=== PATIENT | male | born 1955 | race Caucasian/White ===

== ENCOUNTER 2016-09-30 16:10 | Inpatient (IN) ==
[2016-09-30] MEDS ORDERED: Nitroglycerin 0.4 MG TAB.SUBL SL ONE (16:21)
[2016-09-30] MEDS ORDERED: Aspirin 81 MG TAB.CHEW PO ONE (16:21)
[2016-09-30] MEDS ORDERED: *HR* Ticagrelor 90 MG TABLET PO ONE (16:23)
[2016-09-30] MEDS ORDERED: *HR* Heparin 5,000 UNIT/ML VIAL IVP ONE (16:26)
--- NOTE | 2016-09-30 16:26 | Emergency Department Note ---
Disposition Clinical Impression: ST elevation myocardial infarction (STEMI) Qualifiers: Involved coronary artery: unspecified coronary artery Qualified Code(s): I21.3 - ST elevation (STEMI) myocardial infarction of unspecified site Chest pain Qualifiers: Chest pain type: unspecified Qualified Code(s): R07.9 - Chest pain, unspecified Disposition: Admitted As Inpatient Condition: Fair Time of Disposition: 18:00 Chest Pain HPI - General Chief Complaint: ED Chest Pain Stated Complaint: "I think I am having attack of the heart" Time Seen by Provider: 09/30/16 16:20 Source: patient Mode of arrival: ambulatory Limitations: no limitations Vital Signs Reviewed: Yes Nursing Notes Reviewed: Yes - History of Present Illness HPI Narrative: 61-year-old male pack per day smoker, CAD s/p 4 stents, hypertension, diabetes, hyperlipidemia presents with chest pain. Describes a sharp chest pain in the left chest wall started at 1300 associated shortness of breath and nausea. He reports noncompliance with his medication. He took 81 mg aspirin today. He is unsure of his last heart catheterization. Upon medical record review appears he had a stent placed to the LAD 2013. His relationship executive is Dr. Valerio. Upon EKG review performed at [address] elevation and V1-V5, he currently has chest pain. Denies any bloody stool, black tarry stool or hemoptysis. 324 mg aspirin ordered with nitro trial. [id number] mg and heparin bolus 4000 U. Cath team has been notified. STEMI alert initiated on arrival Severity scale (1-10): 9 - Related Data Previous Rx's Medication Instructions Recorded Hydrocodone/Acetaminophen [[place] 1 each PO 3-4XD PRN #8 tablet 06/03/15 5-325 Tablet] cephALEXin [Keflex] 500 mg PO BID #20 capsule 06/03/15 Allergies Allergy/AdvReac Type Severity Reaction Status Date / Time codeine Allergy Itching Verified 06/03/15 20:16 All systems ED: reviewed and negative except as stated. Review of Systems: As Per HPI Constitutional: Denies: fever, chills Cardiovascular: Reports: chest pain, dyspnea on exertion Respiratory: Reports: dyspnea. Denies: cough, wheezes Gastrointestinal: Reports: nausea. Denies: abdominal pain, vomiting Genitourinary: Denies: urgency, dysuria Musculoskeletal: Denies: back pain, neck pain Integumentary: Denies: rash, abrasion, lesions Neurological: Denies: headache Chest Pain PMH - Past Medical History Medical history: Reports: COPD, diabetes, hyperlipidemia, hypertension, myocardial infarction Psychiatric history: Reports: depression - Social History Smoking Status: Current every day smoker Alcohol use: Reports: none Drug use: Reports: none, marijuana Physical Exam - General Limitations: no limitations General appearance: alert, in distress - Head Head exam: atraumatic, normocephalic, normal inspection - Eye Eye exam: Present: normal appearance, PERRL, EOMI - ENT ENT exam: normal exam, normal oropharynx, mucous membranes moist - Chest Chest inspection: Present: normal inspection, symmetric chest wall rise. Absent : tenderness, rash - Respiratory Respiratory exam: Present: normal lung sounds bilaterally. Absent: respiratory distress - Cardiovascular Cardiovascular exam: Present: regular rate, normal rhythm, normal heart sounds - Abdominal Exam Abdominal exam: Present: soft, Non-Tender, normal bowel sounds. Absent: tenderness, distention, guarding, rebound, rigidity - Extremities Exam Extremities exam: Present: normal inspection, full ROM, normal capillary refill , pedal edema (+1 symmetrical). Absent: tenderness - Neurological Exam Neurological exam: Present: alert, oriented X3 - Skin Skin exam: Present: warm, dry, intact, normal color. Absent: rash, cyanosis, diaphoresis Course - Reevaluation(s) Reevaluation #1: Patient is currently experiencing 9 of 10 pain. Vitals are stable. Code Cart is in the room with pacer pads on. Full dose aspirin and bolus of Brilinta and heparin. Denies any G.I. bleed symptoms. Catheterization team notified. Patient will be admitted and transferred for further evaluation care to the cath for left heart catheterization. - Consultations Consultation #1: My attending Dr. Johnson spoke with the head housekeeper Dr. Fallon. Cath team initiated. Time: 16:31 Vital Signs Temperature 98.4 F 09/30/16 16:13 Pulse Rate 102 09/30/16 16:13 Respiratory Rate 20 09/30/16 16:13 Blood Pressure 115/74 09/30/16 16:13 O2 Sat by Pulse Oximetry 93 09/30/16 16:13 Temperature 98.4 F 09/30/16 16:13 Pulse Rate 99 09/30/16 16:35 Respiratory Rate 20 09/30/16 16:46 Blood Pressure 100/69 09/30/16 16:46 O2 Sat by Pulse Oximetry 95 09/30/16 16:39 Oxygen Delivery Oxygen Delivery Nasal Cannula Chest Pain - Medical Records Medical records reviewed: Yes I reviewed the patient's medical records. - Lab Data Lab results reviewed: Yes I reviewed the patient's lab results. Result diagrams: 09/30/16 16:30 09/30/16 16:30 Lab Results 09/30/16 09/30/16 09/30/16 Range/Units 16:30 16:30 16:30 WBC 10.5 (4.3-11.1) K/mcL RBC 5.61 H (4.19-5.50) M/mcL Hgb 16.0 (12.9-16.9) g/dL Hct 50.0 (37.5-50.1) % MCV 89.1 (83.0-100.0) fL MCH 28.5 (28.0-33.3) pg MCHC 32.0 (31.6-35.5) g/dL RDW 13.1 (11.5-14.5) % Plt Count 186 (140-400) K/mcL MPV 11.9 (9.4-12.4) fL Immature Gran % 0.3 (0-4) % Seg Neutrophils % 83.6 % Lymphocytes % 11.2 % Monocytes % 4.4 % Eosinophils % 0.2 % Basophils % 0.3 % Neutrophils # 8.8 (1.6-8.9) K/mcL Lymphocytes # 1.2 (0.6-4.6) K/mcL Monocytes # 0.5 (0.0-1.3) K/mcL Eosinophils # 0.0 (0.0-0.6) K/mcL Basophils # 0.0 (0.0-0.2) K/mcL PT 11.8 (9.4-12.1) Seconds INR 1.1 APTT 30.3 (26.0-36.0) Seconds Sodium 137 (136-145) mEq/L Potassium 2.6 L (3.5-4.5) mEq/L Chloride 111 H (98-109) mEq/L Carbon Dioxide 22 (19-29) mEq/L BUN 10 (8-26) mg/dL Creatinine 0.76 (0.72-1.25) mg/dL Est GFR ( Amer) > 60 (> 60) Est GFR (Non-Af Amer) > 60 (> 60) BUN/Creatinine Ratio 13 (6-26) Glucose 474 H (70-99) mg/dL Calculated Osmolality 304 H (280-300) Calcium 6.3 L (8.6-10.8) mg/dL Troponin I (0-0.03) ng/mL 09/30/16 Range/Units 16:30 WBC (4.3-11.1) K/mcL RBC (4.19-5.50) M/mcL Hgb (12.9-16.9) g/dL Hct (37.5-50.1) % MCV (83.0-100.0) fL MCH (28.0-33.3) pg MCHC (31.6-35.5) g/dL RDW (11.5-14.5) % Plt Count (140-400) K/mcL MPV (9.4-12.4) fL Immature Gran % (0-4) % Seg Neutrophils % % Lymphocytes % % Monocytes % % Eosinophils % % Basophils % % Neutrophils # (1.6-8.9) K/mcL Lymphocytes # (0.6-4.6) K/mcL Monocytes # (0.0-1.3) K/mcL Eosinophils # (0.0-0.6) K/mcL Basophils # (0.0-0.2) K/mcL PT (9.4-12.1) Seconds INR APTT (26.0-36.0) Seconds Sodium (136-145) mEq/L Potassium (3.5-4.5) mEq/L Chloride (98-109) mEq/L Carbon Dioxide (19-29) mEq/L BUN (8-26) mg/dL Creatinine (0.72-1.25) mg/dL Est GFR ( Amer) (> 60) Est GFR (Non-Af Amer) (> 60) BUN/Creatinine Ratio (6-26) Glucose (70-99) mg/dL Calculated Osmolality (280-300) Calcium (8.6-10.8) mg/dL Troponin I 0.18 H* (0-0.03) ng/mL - EKG Data EKG attestation: Yes I reviewed and interpreted this EKG. EKG results narrative: EKG performed 1614 sinus rhythm 96 is permitted there is 1 PVC, a significant ST elevation greater than 1 mm in V1-V5. STEMI alert initiated. Patient is currently having chest pain. Compared to old EKG performed 06/05/2015 shows sinus rhythm with no ST elevations or depression. Concern for STEMI. Heart Score - Score History: Highly Suspicious EKG: Significant ST-Depression Age: 45-65 Risk Factors: Equal/Greater than 3 risk factor or history of atherosclerotic disease Attestation Statement - Attestation Attestation: I examined this patient and my medical decision-making was reviewed with the Resident Physician. I agree with the documented findings, disposition and treatment plan as described except to the extent set forth below. Patient to ED with chest pain. Substernal. Feels like prior heart attacks. Started at 1 PM while he was weed eating. Patient is status post 4 stent placements. The last was in 2013. Patient states he is supposed to take Plavix but he cannot afford it. Last pill was a month ago. Exam shows him mildly diaphoretic. Clutching his chest. Lungs clear. Plan. EKG shows anteroseptal ST elevations. STEMI alert was called. Brilinta aspirin and heparin given. Discussed with Dr. Fallon who will take to [facility]. Critical care less than 30 minutes
[2016-09-30] MEDS ORDERED: Verapamil 5 MG/2 ML VIAL ONE (16:30)
[2016-09-30] MEDS ORDERED: *HR* FentaNYL (PF) 100 MCG/2 ML VIAL ONE (16:30)
[2016-09-30] MEDS ORDERED: 0.9 % Sodium Chloride 1,000 ML ONE ×2 (16:31→16:37)
[2016-09-30] MEDS ORDERED: *HR* Midazolam HCl 2 MG/2 ML VIAL ONE (16:31)
[2016-09-30] MEDS ORDERED: Heparin 1,000 UNITS/500 mL NS 500 ML ONE (16:31)
[2016-09-30] MEDS ORDERED: Nitroglycerin 1,000 MCG/10 ML VIAL IV ONE (16:31)
[2016-09-30] MEDS ORDERED: *HR* Heparin 10,000 UNIT/10 ML VIAL ONE (16:31)
[2016-09-30] MEDS ORDERED: *HR* Morphine 2 MG/ML SYRINGE IVP PRN (16:35)
[2016-09-30] MEDS ORDERED: 0.9 % Sodium Chloride 1,000 ML IVC ONE (16:39)
[2016-09-30 16:40] LABS: Basophils % 0.3 %; Eosinophils % 0.2 %; Immature Granulocytes % 0.3 % (0-4); Lymphocytes # 1.2 K/mcL (0.6-4.6); Lymphocytes % 11.2 %; Mean Corpuscular Hemoglobin 28.5 pg (28.0-33.3); Mean Corpuscular Volume 89.1 fL (83.0-100.0); Mean Platelet Volume 11.9 fL (9.4-12.4); Monocytes # 0.5 K/mcL (0.0-1.3); Monocytes % 4.4 %; Neutrophils # 8.8 K/mcL (1.6-8.9); Platelet Count 186 K/mcL (140-400); Red Blood Count 5.61 M/mcL (4.19-5.50); Red Cell Distribution Width 13.1 % (11.5-14.5); Segmented Neutrophils % 83.6 %
--- NOTE | 2016-09-30 16:40 | Cardiology History & Physical ---
Date of Encounter: 10/01/16 Time of Encounter: 16:40 Assessment and Plan (1) ST elevation myocardial infarction (STEMI) Current Visit: Yes Status: Acute A/R/B of emergent LHC discussed with him and he wishes to proceed. He declines to stop smoking. Interrogated him about medical noncompliance and he states he would prefer to take medications for a year with a MEMO. He states previously his issues were $ driven, but he states he will be able to afford clopidogrel. EF assessment will be completed. Cardiac rehab consult. Aspirin, brilinta and heparin given in ED. Transradial approach will be attempted because of evidence of improved outcomes. The assessment and plan as outlined above was discussed with the patient and/or family members who expressed understanding and agreement. All questions were answered. Qualifiers: Involved coronary artery: LAD coronary artery Qualified Code(s): I21.02 - ST elevation (STEMI) myocardial infarction involving left anterior descending coronary artery (2) Nicotine dependence Current Visit: Yes Status: Acute The assessment and plan as outlined above was discussed with the patient and/or family members who expressed understanding and agreement. All questions were answered. Qualifiers: Nicotine product type: cigarettes Substance use status: uncomplicated Qualified Code(s): F17.210 - Nicotine dependence, cigarettes, uncomplicated History of Present Illness Chief complaint: chest pain HPI: Mr. 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 It was associated with mild dyspnea. He went to his brother's house instead of the ED and his brother made him come to the emergency room. He notes his noncompliance is mostly secondary to cost. He declines to stop smoking. Past Med Surg Social Fam HX - Past Medical History Medical history: COPD, diabetes, hyperlipidemia, hypertension, myocardial infarction Psychiatric history: depression - Social History Smoking Status: Current every day smoker Smokeless Tobacco Status: No Alcohol use: none Drug use: none, marijuana - Family History Father Age at : 72 Cause of : cirrhosis Mother Living Status: Age at : 75 Cause of : alzheimers Medications and Allergies Insulin ASPART [NovoLOG] 4 - 10 unit SQ TIDWM MDD per sliding scale 10/01/16 [ History] Insulin Glargine [Lantus] 65 unit SQ HS 10/01/16 [History] Metformin HCl [Glucophage] 1,000 mg PO BID 10/01/16 [History] Allergies codeine Allergy (Verified 10/01/16 08:03) Itching, Rash All Systems Review: A 10-system review of systems was performed and is negative for pertinent findings except as documented above in the HPI. - Constitutional Constitutional: no chills, no fever(s) - EENT Eyes: no blurred vision, no loss of vision Nose, mouth and throat: no bleeding gums, no epistaxis - Cardiovascular Cardiovascular: chest pain at rest, chest pain with exertion - Respiratory Respiratory: no hemoptysis, no wheezing - Gastrointestinal Gastrointestinal: no hematemesis, no hematochezia - Genitourinary Genitourinary: no hematuria, no nocturia - Musculoskeletal Musculoskeletal: no abnormal gait, no muscle weakness - Integumentary Integumentary: no erythema, no rash - Neurological Neurological: no loss of vision, no syncope - Psychiatric Psychiatric: no hallucinations, no panic attacks - Hematological/Lymphatic Hematologic/Lymphatic: no easy bleeding, no easy bruising Physical Examination Vital Signs, Last 4 Hours Temp Pulse Resp BP Pulse Ox 09/30/16 16:39 95 09/30/16 16:30 98 18 121/82 95 09/30/16 16:21 116 18 148/97 92 09/30/16 16:13 98.4 F 102 20 115/74 93 General: Conversant, Other (mild distress) HEENT: Atraumatic Neck: No JVD Cardiac: Reg Rate and Rhythm Lungs: Normal Breath Sounds Neuro: Alert and responsive Abdomen: Soft Skin: No rashes noted on visualized skin Musculoskeletal: No Chest Wall Tenderness Extremities: No Edema Results 10/01/16 06:25 10/01/16 06:25 - EKG Interpretation EKG results cardiology: personally reviewed, other (anterolateral current of injury)
[2016-09-30] MEDS ORDERED: Tirofiban 12.5 MG/250ML 12.5 MG/250 ML BAG IVC SCH (16:45)
[2016-09-30 16:48] LABS: INR 1.1; Prothrombin Time 11.8 Seconds (9.4-12.1)
[2016-09-30 16:51] LABS: Activated Partial Thrombo Time 30.3 Seconds (26.0-36.0)
[2016-09-30 16:53] LABS: BUN/Creatinine Ratio 13 (6-26); Blood Urea Nitrogen 10 mg/dL (8-26); Calcium 6.3 mg/dL (8.6-10.8); Carbon Dioxide 22 mEq/L (19-29); Chloride 111 mEq/L (98-109); Glucose 474 mg/dL (70-99); Osmolality,Calculated 304 (280-300); Potassium 2.6 mEq/L (3.5-4.5); Sodium 137 mEq/L (136-145); eGFR For African Americans > 60 (> 60); eGFR For Non-African Americans > 60 (> 60)
[2016-09-30] MEDS ORDERED: Tirofiban 12.5 MG/250ML 12.5 MG/250 ML BAG ONE (17:11)
[2016-09-30] MEDS ORDERED: *HR* OxyCODONE/APAP 5/325 TABLET PO PRN (17:56)
[2016-09-30] MEDS ORDERED: Ondansetron 4 MG/2 ML VIAL IVP PRN (17:56)
[2016-09-30] MEDS ORDERED: *HR* HYDROcodone/Acet 5/325 mg TABLET PO PRN (17:56)
[2016-09-30] MEDS ORDERED: Acetaminophen 325 MG TABLET PO PRN (17:56)
[2016-09-30] MEDS ORDERED: *HR* Dextrose 50 % in Water (Syg) 50 ML SYRINGE IVP PRN (17:59)
[2016-09-30] MEDS ORDERED: D5% in Water 1,000 ML IVC PRN (17:59)
[2016-09-30] MEDS ORDERED: Dextrose Gel 15 GM PO PRN ×2 (17:59)
--- NOTE | 2016-09-30 18:07 | Invasive Diagnostic Lab Proc ---
Name: Ananth Suarez Date of Study: 09/30/2016 Date: 1955 Ht: 72.0in Medical Record#: [id number] Age: 61 Wt: 211.64lb Gender: Male BSA: 2.18 Order #: [id number] BMI: 28.7 Physicians Procedure Physician: Cal Fallon MD, FACC Referring MD: Referring MD: Staff Name Position Time In Sylvia Isaac RT Monitor 04:54 PM DavidLalitha RT (R) Scrub 04:54 PM Susana Kidd RN Weight Checker 04:54 PM Willa De León RN Weight Checker 04:54 PM Indications Indication STEMI Procedures Performed Procedure PRQ CARD REVASC NV 1 VSL L HRT ARTERY/VENTRICLE ANGIO PRQ CARDIAC ANGIO ADDL ART Pre-Procedure Checklist Informed consent is complete signed and on chart. H&P is on chart. ID band is on and ID verified with patient. Patient NPO for procedure The procedure was described for the patient and questions were answered. Blood Pressure: 152/109 ECG is on chart. Rhythm: STEMI Plan of Care Patient will tolerate the procedure without complications. Adequate level of comfort will be maintained. Hemodynamics will remain stable Patient will recover from procedure without complications. Respiratory function will be maintained. Cardiac rhythm will remain stable. Patient temperature will be maintained. Patient and/or family have verbalized understanding of the procedure. Patient Education Chief Complaint/Reason for Test: Cardiac Cath Developmental Category: Adult (18-64 years) Developmentally Appropriate for Age: Yes Learning Barriers: None Education Needs: Procedure Education Method: Verbal Information Taught: Cardiac Cath Educational Evaluation: Able to repeat information Intravenous Access Time IV Size Location DC'd Fluid/Drip Rate Units RN 18g 1 1/4" Patent On Arrival Lt Antecubital 0.9NaCl 18g 1 1/4" Patent On Arrival Rt Antecubital Allergies codeine CODIENE Vital Signs Time BP (mmHg) HR (bpm) O2 Sat. RR (bpm) LOC 04:55 PM / % 4 = Oriented but drowsy 04:55 PM / % 5 = Fully awake and oriented or at pre-proc level 05:11 PM / % 4 = Oriented but drowsy 04:56 PM 152 / 109 93 100 % 18 04:59 PM 164 / 116 96 100 % 32 05:02 PM 141 / 89 85 99 % 17 05:05 PM 122 / 78 87 96 % 20 05:08 PM 125 / 71 84 98 % 18 05:11 PM 121 / 85 87 98 % 15 05:14 PM 130 / 90 90 98 % 21 05:17 PM 130 / 72 68 98 % 11 05:20 PM 126 / 80 123 98 % 18 05:24 PM 127 / 82 90 99 % 19 05:26 PM 115 / 60 95 98 % 20 05:29 PM 123 / 80 73 99 % 26 05:32 PM 125 / 83 88 96 % 17 05:35 PM 106 / 75 83 97 % 21 05:39 PM 129 / 75 79 98 % 22 05:41 PM 120 / 83 84 98 % 20 Procedural Medications Time Medication Dose Units Method Given By 05:02 PM Lidocaine 2% 0.5 ml Subcutaneous Cal Fallon MD, FACC 05:03 PM Heparin 4000 units Nitroglycerin 200 mcg Verapamil 2.5 mg Intraarterial Cal Fallon MD, FACC 05:14 PM Aggrastat Bolus: 50 ml Intravenous Susana Kidd RN 05:15 PM Aggrastat 12.5mg/250ml 18 ml Intravenous Susana Kidd RN 05:14 PM Heparin 2000 units Intravenous Susana Kidd RN 05:21 PM Nitroglycerin 200 mcg Intracoronary Cal Fallon MD 05:29 PM Nitroglycerin 200 mcg Intracoronary Cal Fallon MD 05:33 PM kcl 10 meq Intravenous Susana Kidd RN 04:55 PM Versed 2 mg Intravenous Susana Kidd RN 04:55 PM Fentanyl 50 mcg Intravenous Susana Kidd RN ASA Classification: Emergent Procedure: ASA score is assumed Hermilo Score Preprocedure Postprocedure Activity 2- Moves 4 extremities sustained head lift Activity 2- Moves 4 extremities sustained head lift Circulation 2- SBP +/= 20 points of pre-anesthetic level Circulation 2- SBP +/= 20 points of pre-anesthetic level Consciousness 2- Awake and alert oriented x 3 Consciousness 2- Awake and alert oriented x 3 O2 Saturation 2- Able to maintain O2 satruation of 92% on room air O2 Saturation 2- Able to maintain O2 satruation of 92% on room air Respiratory 2- Able to deep breathe and cough well Respiratory 2- Able to deep breathe and cough well Total Score 10 Total Score 10 Contrast Agent: Isovue Diagnostic Contrast: 154 ml Total Contrast: 154 ml Fluoro Dose: 829 mGy Activated Clotting Time Time Seconds to Clot 05:14 PM 247 Procedure Log Time Note Enter By 04:46 PM 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 to 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 Bilateral groin prepped with Chloraprep by Susana Kidd RN, safety strap applied then patient was draped. Skin intact. [email or web address] 04:55 PM Hair removed from procedure site in holding area using clippers. Right wrist prepped with Chloraprep by Susana Kidd RN, safety strap applied then patient was draped. Skin intact. [email or web address] 04:55 PM Physician arrived 16:55 [email or web address] 04:55 PM Meet and greet completed [email or web address] 04:55 PM Time: 16:55 Patient comfortable and pain free: Yes [email or web address] 04:55 PM Time: 16:55LOC: 4 = Oriented but drowsy [email or web address] 04:56 PM CathStat 04:56 PM Vitals capture started with the following parameters, Patient=Adult, Interval=3 min, Initial Qewfndue=583 mmHg, Deflation Rate=5 mmHg, Cuff placed on Right Arm 04:56 PM Clinical Presentation: STEMI or equivalent [email or web address] 04:56 PM HR=93 bpm, NOIZ=596/109 mmhg, HmY1=140.0 %, Resp=18 B/min, Comment=[email or web address] 04:59 PM HR=96 bpm, NIQW=420/116 mmhg, MpS3=060.0 %, Resp=32 B/min, Comment=[email or web address] 05:02 PM Time out performed according to hospital policy [email or web address] 05:02 PM Time: 17:02 .5 ml Lidocaine 2% to right radial Subcutaneous Given by Cal Fallon MD, [facility] [email or web address] 05:02 PM HR=85 bpm, YWZI=485/89 mmhg, SpO2=99.0 %, Resp=17 B/min, Comment=[email or web address] 05:03 PM Access obtained by percutaneous puncture. 6Fr 10cm Terumo [place] sheath placed in right Radial artery. [id number] [email or web address] 05:03 PM Time: 17:03 Patient given 4,000 units Heparin, 200 mcg Nitroglycerin, and 2.5 mg Verapamil Intraarterial by Cal Fallon MD, [facility] [email or web address] 05:04 PM 6Fr RBL 3.5 Convey guide catheter was used to cannulate the PCI vessel successfully. reused? No [email or web address] 05:04 PM wire removed [email or web address] 05:04 PM LCA angiography performed in multiple views. [email or web address] 05:05 PM Recorded Pressure: Ao, HR=91, Condition=Condition 1 (Aorta) Ao 112/73/89 05:05 PM .014 [place] 190cm guide wire across target lesion- successful. reused? No [email or web address] 05:05 PM HR=87 bpm, EPOW=355/78 mmhg, SpO2=96.0 %, Resp=20 B/min 05:06 PM 2.5 mm x 20 mm Emerge Monorail balloon across target lesion- successful. reused? No [email or web address] 05:07 PM Balloon inflated @ 10 eve for 10 seconds [email or web address] 05:08 PM Balloon inflated @ 6 eve for 12 seconds [email or web address] 05:08 PM HR=84 bpm, KHEQ=673/71 mmhg, SpO2=98.0 %, Resp=18 B/min 05:08 PM Balloon inflated @ 10 eve for 19 seconds [email or web address] 05:09 PM Recorded Pressure: Ao, HR=93, Condition=Condition 1 (Aorta) Ao 104/69/86 05:10 PM Balloon catheter removed intact. [email or web address] 05:11 PM Lesion found in Mid LAD. Pre Stenosis: 100 Pre HILARIA Flow: 0 [email or web address] 05:11 PM Time: 16:55 Patient comfortable and pain free: Yes [email or web address] 05:11 PM Time: 16:55LOC: 5 = Fully awake and oriented or at pre-proc level [email or web address] 05:11 PM HR=87 bpm, TXGO=252/85 mmhg, SpO2=98.0 %, Resp=15 B/min 05:11 PM 2.25mm x 32mm Synergy drug-eluting stent across target lesion- successful Lot #[id number] [email or web address] 05:13 PM Stent deployed @ 15 eve for 30 seconds [email or web address] 05:14 PM Time: 17:14 Heparin 2000 units Intravenous Given by Susana Kidd RN [email or web address] 05:14 PM HR=90 bpm, VHQU=144/90 mmhg, SpO2=98.0 %, Resp=21 B/min 05:14 PM At 17:14 the ACT was 247 seconds. [email or web address] 05:14 PM Balloon catheter removed intact. [email or web address] 05:15 PM Time: 17:14 Aggrastat Bolus: 50 ml Intravenous Given by Susana Kidd RN Downing pump [email or web address] 05:15 PM Time: 17:15 Aggrastat 12.5mg/250ml 18 ml Intravenous Given by Susana Kidd RN Downing pump [email or web address] 05:15 PM 3.0 mm x 15mm NC Emerge balloon across target lesion- successful. reused? No [email or web address] 05:15 PM Balloon inflated @ 12 eve for 8 seconds [email or web address] 05:15 PM Balloon inflated @ 12 eve for 6 seconds [email or web address] 05:16 PM Balloon inflated @ 16 eve for 16 seconds [email or web address] 05:17 PM HR=68 bpm, XSXQ=424/72 mmhg, SpO2=98.0 %, Resp=11 B/min 05:18 PM Balloon catheter removed intact. [email or web address] 05:19 PM 2.0 mm x 15 mm Emerge Monorail balloon across target lesion- successful. reused? No [email or web address] 05:20 PM GX=086 bpm, WSWU=463/80 mmhg, SpO2=98.0 %, Resp=18 B/min, [email or web address] 05:21 PM Time: 17:21 Nitroglycerin 200 mcg Intracoronary Given by Cal Fallon MD [email or web address] 05:22 PM 1.2 mm x 12 mm Square Dance Caller Monorail balloon across target lesion- successful. reused? No [email or web address] 05:23 PM Balloon inflated @ 14 eve for 20 seconds [email or web address] 05:23 PM Balloon inflated @ 14 eve for 14 seconds [email or web address] 05:24 PM HR=90 bpm, MXJE=373/82 mmhg, SpO2=99.0 %, Resp=19 B/min 05:24 PM Balloon catheter removed intact. [email or web address] 05:25 PM 2.0 mm x 15 mm Emerge Monorail balloon across target lesion- successful. reused? Yes [email or web address] 05:26 PM Time: 17:11LOC: 4 = Oriented but drowsy [email or web address] 05:26 PM Time: 17:11 Patient comfortable and pain free: Yes [email or web address] 05:26 PM HR=95 bpm, LADO=668/60 mmhg, SpO2=98.0 %, Resp=20 B/min 05:27 PM Balloon inflated @ 6 eve for 15 seconds mk 05:27 PM Balloon inflated @ 6 eve for 12 seconds [email or web address] 05:29 PM Time: 17:29 Nitroglycerin 200 mcg Intracoronary Given by Cal Fallon MD elle 05:29 PM HR=73 bpm, PLWC=321/80 mmhg, SpO2=99.0 %, Resp=26 B/min 05:31 PM Guide catheter removed intact. 05:31 PM 5Fr TIG catheter inserted over the wire [facility] [email or web address] 05:32 PM wire removed 05:32 PM HR=88 bpm, BFLV=293/83 mmhg, SpO2=96.0 %, Resp=17 B/min 05:32 PM RCA angiography performed in multiple views. 05:32 PM Recorded Pressure: Ao, HR=88, Condition=Condition 1 (Aorta) Ao 38/13/25 05:33 PM Catheter removed 05:34 PM Time: 17:33 kcl 10 meq in 100ml 0.9 @ 100ml/hr Intravenous Given by Susana Kidd RN Downing pump elle 05:35 PM 5Fr Pigtail catheter inserted over the wire DN [email or web address] 05:35 PM wire removed [email or web address] 05:35 PM Recorded Pressure: LV, HR=89, Condition=Condition 1 (Left Ventricle) LV 96/5/16 05:35 PM Catheter selectively placed in left ventricle [email or web address] 05:35 PM Bolus angiogram of left Ventricle complete: 10 ml/sec for a total of 30 mls [email or web address] 05:35 PM HR=83 bpm, VLZG=726/75 mmhg, SpO2=97.0 %, Resp=21 B/min, Comment=stemi 05:35 PM Coronary Dominance: right [email or web address] 05:35 PM Recorded Pressure: LV, Ao, LI=704, Condition=Condition 1 (Left Ventricle) LV 91/9/32, (Aorta) Ao 75/35/57 05:35 PM Recorded Pressure: LV, Ao, HR=83, Condition=Condition 1 (Left Ventricle) LV 86/2/28, (Aorta) Ao 75/47/61 05:37 PM Lesion found in Mid RCA. Pre Stenosis: 20 Pre HILARIA Flow: [email or web address] 05:38 PM Lesion found in LMCA. Pre Stenosis: 40 Pre HILARIA Flow: [email or web address] 05:38 PM Coronary Dominance: right [email or web address] 05:38 PM Lesion found in Right PDA. Pre Stenosis: 40 Pre IHLARIA Flow: [email or web address] 05:39 PM Left Main Coronary Artery with 40% stenosis [email or web address] 05:39 PM HR=79 bpm, UYVZ=190/75 mmhg, SpO2=98.0 %, Resp=22 B/min 05:39 PM Proximal Left Anterior Descending Coronary Artery with 100% stenosis. If graft is supplying this territory, 0 % stenosis. [email or web address] 05:39 PM Mid/Distal Left Anterior Descending Coronary Artery and diagonal branches with 100% stenosis. If graft is supplying this area, 0 % stenosis [email or web address] 05:39 PM Right Coronary, Right Posterior Descending Arteries with Right Posterolateral and Acute Marginal branches with 40 % stenosis. If graft is supplying this area, 0 % stenosis [email or web address] 05:39 PM Ramus with 0% stenosis. If graft is supplying this area, 0 % stenosis [email or web address] 05:39 PM Procedure completed at 17:39 [email or web address] 05:40 PM Sign out completed: Radiation Dose 828.66 mGy Fluoro Time: 9.8 Isovue 370 - 200ml contrast 154 [facility] Complications: NoneCardiac Rehab Consult needed: YesConfirmed administered medications: Yes [email or web address] 05:40 PM Time: 17:40 Versed 2 mg Intravenous Given by Susana Kidd RN [email or web address] 05:40 PM Time: 17:40 Fentanyl 50 mcg Intravenous Given by Susana Kidd RN [email or web address] 05:41 PM Time: 17:26 Patient comfortable and pain free: Yes [email or web address] 05:41 PM HR=84 bpm, AKOJ=243/83 mmhg, SpO2=98.0 %, Resp=20 B/min, Comment=[email or web address] 05:42 PM 9 ml air in Vasc Band. [email or web address] 05:42 PM Post Blood Pressure 120/83 [email or web address] 05:42 PM 17:42 Post Pulses Bilateral DP & PT 1+ [email or web address] 05:43 PM Information taught Cardiac Cath and PCI [email or web address] 05:43 PM Education needs Procedure, Plan of Care, and Responsibilities of Patient in Care [email or web address] 05:43 PM Learning barriers :None [email or web address] 05:43 PM Education Methods Verbal [email or web address] 05:43 PM Education evaluation Able to repeat information [email or web address] 05:43 PM Site status No bleeding/hematoma - Rt Groin as reported by Lalitha Hernandez RT (R) at 17:43 [email or web address] 05:43 PM Opsite applied [email or web address] 05:43 PM Plavix, Effient or Brilinta given No [email or web address] 05:43 PM Delay to floor No [email or web address] 05:43 PM Patient out of room: 17:43 [email or web address] 05:43 PM Family placed in consult room. [email or web address] 05:43 PM Complications: None [email or web address] 05:43 PM Fluoro Time: 9.8 [email or web address] 05:43 PM Isovue 370 - 200ml contrast 154 ml given by Cal Fallon MD, [facility]. [email or web address] 05:43 PM Radiation Dose 828.66 mGy [email or web address] 05:44 PM Vitals capture stopped. 05:48 PM Lesion found in 1st Diagonal. Pre Stenosis: 99 Pre HILARIA Flow: 2 [email or web address] 05:54 PM Circumflex, Obtuse Marginal, Left Posterior Descending, and Left Posterolateral Coronary Arteries with 0 % stenosis. If graft is supplying this area, 0 % stenosis [email or web address] 06:01 PM Report given to Briseida CRANDALL Pt taken to ICU Room #8. 18:01 [email or web address] Complications Complication None None Hemodynamics Pressures Site Systolic/A Wave Diastolic/V Wave Mean AO 112 73 89 AO 104 69 86 AO 38 13 25 LV 96 5 16 LV 91 9 32 AO 75 35 57 LV 86 2 28 AO 75 47 61 Post Procedure Information Blood Pressure: 120/83 mmHg Rhythm: NSR Post procedural instructions were given Site Checks Time Location Status Staff Sheath In? Note 05:43 PM Rt Groin No bleeding/hematoma Lalitha Hernandez RT (R) Pulses Time Site Pre-Procedure Post-Procedure Note 09/30/2016 4:57:00 PM Rt Radial 2+ 09/30/2016 4:57:00 PM Rt DP 2+ 09/30/2016 4:57:00 PM Lt DP 1+ 09/30/2016 4:57:00 PM Bilateral PT 1+ 5:42:00 PM Bilateral DP & PT 1+ Updated by Kylah William RTDestinyR) on 09/30/2016 6:01:31 PM electronically signed on 09/30/2016 6:02:11 PM with status of Final
[2016-09-30] MEDS: Insulin LISPRO 300 UNITS/3 ML VIAL SQ SCH (18:41)
[2016-09-30] MEDS: Albuterol 2.5 MG/3 ML NEBULIZER IH PRN ×2 (19:58→23:30)
[2016-09-30] MEDS: *HR* Ticagrelor 90 MG TABLET PO SCH (20:15)
[2016-09-30] MEDS ORDERED: Insulin LISPRO 300 UNITS/3 ML VIAL SQ SCH (21:00)
[2016-09-30] MEDS: Nicotine 21 MG PATCH.TD24 TD SCH (21:37)
[2016-10-01] MEDS: Albuterol 2.5 MG/3 ML NEBULIZER IH PRN ×3 (03:31→21:41)
--- NOTE | 2016-10-01 06:24 | Pre-Sedation Evaluation ---
Pre-sedation evaluation - Pre-sedation checklist Date of procedure: 09/30/16 Procedure: [facility] Recent Vitals: Last Vital Signs Temp 97.5 F L 10/01/16 04:00 Pulse 93 10/01/16 06:00 Resp 18 10/01/16 06:00 BP 98/64 10/01/16 06:00 Pulse Ox 95 10/01/16 06:00 H&P (including ROS) documented in medical record: Yes Previous reaction to sedatives/anesthetics: No Dietary Status: unknown Airway Assessment: Patient can open mouth completely, TMJ function normal Dentition: No loose teeth or bridges ASA Classification *see protocol: CLASS II-Mild systemic disease, E-EMERGENCY- Add to any of the above to indicate emergent Plan of Care: Pt appropriate candidate for procedure/moderate/conscious sedation , Risks/benefits of procedure/sedation discussed w/ patient/family, If not NPO; Risk of intake outweiged by necessity to perform procedure
--- NOTE | 2016-10-01 06:25 | Event Note ---
Date of Encounter: 10/01/16 Time of Encounter: 06:30 - Cardiology Event Note EF 30-35% mid LAD occluded sp MEMO x 1 with PTCA diagonal Otherwise mild disease. Patient asks for a cigarette during the case and refuses to stop smoking. He was interrogated about medication compliance, DAPT, etc and states he would be able to afford clopidogrel/aspirin and prefers MEMO if given an option understanding it requies DAPT x 1 year with risk of stent thrombosis/ if he stops DAPT prematurely.
[2016-10-01 06:38] LABS: Eosinophils % 0.6 %; Hematocrit 40.2 % (37.5-50.1); Immature Granulocytes % 0.5 % (0-4); Immature Platelets 8.6 % (1.1-6.1); Mean Corpuscular HGB Conc 32.8 g/dL (31.6-35.5); Mean Corpuscular Hemoglobin 29.3 pg (28.0-33.3); Mean Corpuscular Volume 89.1 fL (83.0-100.0); Mean Platelet Volume 11.6 fL (9.4-12.4); Monocytes % 6.4 %; Platelet Count 147 K/mcL (140-400); Red Blood Count 4.51 M/mcL (4.19-5.50); Red Cell Distribution Width 13.2 % (11.5-14.5); Segmented Neutrophils % 80.2 %
[2016-10-01 06:39] LABS: Basophils % 0.3 %; Eosinophils # 0.1 K/mcL (0.0-0.6); Lymphocytes # 1.3 K/mcL (0.6-4.6); Monocytes # 0.7 K/mcL (0.0-1.3); Neutrophils # 8.5 K/mcL (1.6-8.9)
[2016-10-01 06:43] LABS: Hemoglobin 13.2 g/dL (12.9-16.9)
[2016-10-01 06:46] LABS: BUN/Creatinine Ratio 17 (6-26); Blood Urea Nitrogen 14 mg/dL (8-26); Carbon Dioxide 28 mEq/L (19-29); Chloride 104 mEq/L (98-109); Glucose 263 mg/dL (70-99); Osmolality,Calculated 296 (280-300); Sodium 138 mEq/L (136-145); eGFR For African Americans > 60 (> 60); eGFR For Non-African Americans > 60 (> 60)
[2016-10-01 06:47] LABS: Potassium 3.8 mEq/L (3.5-4.5)
[2016-10-01] MEDS: Nicotine 21 MG PATCH.TD24 TD SCH (07:41)
[2016-10-01] MEDS: *HR* Ticagrelor 90 MG TABLET PO SCH (07:42)
[2016-10-01] MEDS: Insulin LISPRO 300 UNITS/3 ML VIAL SQ SCH ×3 (07:47→17:36)
[2016-10-01] MEDS ORDERED: Aspirin 81 MG TAB.CHEW PO SCH (09:00)
[2016-10-01] MEDS ORDERED: Magnesium Oxide 400 MG TABLET PO SCH (09:00)
--- NOTE | 2016-10-01 13:28 | Cardiology Progress Note ---
Date of Encounter: 10/01/16 Time of Encounter: 11:30 Assessment and Plan (1) ST elevation myocardial infarction (STEMI) Current Visit: Yes Status: Acute Per cardiology: -Acute STEMI presentation. -EMergent LHC with unofficial reports reviewed with 100% LAD occlusion with MEMO placed and PTCA of diagonal branch. -On asa, statin, beta carmela, and brilinta. -Echo with LVEF 35%, moderate LV systolic dysfunction with regional variations, mild concentric LVH, mild diastolic dysfunction, mild MR, mild elevation in RA pressures, apex, apical inferior, apical anterior, apical septal, mid inferior septal, apical lateral, mid anterior septal, and basal anterior septal meza hypokinetic. All other visualized meza with normal motion. -Reports new shortness of breath. -Deneis chest pain overnight. -Right radial access site without hematoma or ecchymosis. -Can consider switching anti-platelet to plavix if shortness of breath does not improve. -Will continue to monitor. -Will transfer out of ICU. -Will consult hospitalist service for assistance in managing patient's DM. Qualifiers: Involved coronary artery: LAD coronary artery Qualified Code(s): I21.02 - ST elevation (STEMI) myocardial infarction involving left anterior descending coronary artery (2) Ischemic cardiomyopathy Current Visit: Yes Status: Acute Per cardiology: -KNown Ischemic cardiomyopathy. -LVEF currently 35%, Previously 45-50%. -ON beta carmela. -Will add ryley inhibitor. -Will continue to monitor. (3) Nicotine dependence Current Visit: Yes Status: Acute Per cardiology: -Known nicotine dependence. -I spent 3-5 minutes reviewing smoking cessation education with patient. Qualifiers: Nicotine product type: cigarettes Substance use status: uncomplicated Qualified Code(s): F17.210 - Nicotine dependence, cigarettes, uncomplicated Discussion w patient/family: The assessment and plan as outlined above was discussed with the patient who expressed understanding and agreement. All questions were answered. Thank you for involving us in the care of your patient. Please call with any questions. Discussed and reviewed with . Subjective Principal diagnosis: STEMI Interval history: Patient denies chest pain overnight. PAtient denies issues using right wrist. Patient admits to new shortness of breath. Objective Vital Signs, Last 4 Hours Temp Pulse Resp BP Pulse Ox 10/01/16 12:21 97.4 F L 10/01/16 12:00 88 18 125/100 97 10/01/16 11:00 91 20 98 10/01/16 10:00 72 20 100/61 98 General: Conversant, No Apparent Distress HEENT: Atraumatic, Normocephaly, Mucus Membranes Moist Neck: No JVD, Normal carotid pulses Cardiac: Reg Rate and Rhythm, Normal S1 and S2, No Murmur Lungs: Normal Breath Sounds, No Wheeze, Rales, Rhonchi Neuro: Alert and responsive, No focal deficits noted Abdomen: Soft, Non-Tender Skin: No rashes noted on visualized skin, Other (Right radial access site without hematoma or ecchymosis. ) Musculoskeletal: No Chest Wall Tenderness Extremities: No Clubbing, No Cyanosis, No Edema, Normal Pulses Results 10/01/16 06:25 10/01/16 06:25 Lab Results Impressions Chest X-Ray 09/30/16 16:21 IMPRESSION: No acute cardiopulmonary disease. D/ / Doug Jameson MD / Doug Jameson MD Interpreting Provider: Doug Jameson MD Active Medications Acetaminophen (Tylenol) 500 mg PO Q6HR PRN PRN Reason: Mild Pain Stop: 04/01/17 16:36 Acetaminophen (Tylenol) 650 mg PO Q6HR PRN PRN Reason: Mild Pain Stop: 04/01/17 17:57 Hydrocodone Bitart/Acetaminophen (Embarrass 5-325 Mg) 1 tab PO Q4HR PRN PRN Reason: Moderate Pain Stop: 04/01/17 17:57 Albuterol Sulfate (Proventil Neb) 2.5 mg IH [id number] PRN; Protocol PRN Reason: Shortness Of Breath/Wheezing Stop: 04/01/17 19:42 Last Admin: 10/01/16 07:43 Dose: 2.5 mg Aspirin (Aspirin) 81 mg PO DAILY ALONSO Stop: 04/02/17 09:01 Last Admin: 10/01/16 07:42 Dose: 81 mg Carvedilol (Coreg) 6.25 mg PO BIDWM ALONSO PRN Reason: Protocol Stop: 04/02/17 08:01 Last Admin: 10/01/16 07:42 Dose: 6.25 mg Dextrose/Water (Dextrose 50% (Syg)) 25 ml IVP AD PRN PRN Reason: Hypoglycemia Stop: 04/01/17 18:00 Diphenhydramine HCl (Benadryl) 25 mg PO HS PRN PRN Reason: Insomnia Stop: 04/01/17 17:57 Last Admin: 09/30/16 22:07 Dose: 25 mg Enoxaparin Sodium (Lovenox) 40 mg SQ 0600 ALONSO PRN Reason: Protocol Stop: 04/03/17 06:01 Glucagon (Glucagen) 1 mg IM ONCE PRN PRN Reason: Hypoglycemia Stop: 04/01/17 18:00 Glucose (Gluctose) 15 gm PO ONCE PRN PRN Reason: Hypoglycemia Stop: 04/01/17 18:00 Glucose (Gluctose) 30 gm PO ONCE PRN PRN Reason: Hypoglycemia Stop: 04/01/17 18:00 Hydralazine HCl (Hydralazine) 20 mg IVP Q6HR PRN PRN Reason: Hypertension Stop: 04/01/17 17:59 Dextrose (Dextrose 5%) 1,000 mls @ 100 mls/hr IVC .Q10H PRN PRN Reason: HYPOGLYCEMIA Stop: 04/01/17 18:00 Insulin Human Lispro (Humalog) 0 units SQ HS ALONSO PRN Reason: Protocol Stop: 04/01/17 21:01 Last Admin: 09/30/16 20:20 Dose: 8 units Insulin Human Lispro (Humalog) 0 units SQ TIDAC ALONSO PRN Reason: Protocol Stop: 04/01/17 18:31 Last Admin: 10/01/16 12:35 Dose: 10 units Magnesium Oxide (Mag-Ox) 400 mg PO DAILY ALONSO PRN Reason: Protocol Stop: 04/02/17 09:01 Last Admin: 10/01/16 07:42 Dose: 400 mg Morphine Sulfate (Morphine Sulfate) 4 mg IVP Q3H PRN PRN Reason: Severe Pain (7-10) Stop: 04/01/17 16:36 Nicotine (Nicoderm) 21 mg TD DAILY ALONSO PRN Reason: Protocol Stop: 04/01/17 21:31 Last Admin: 10/01/16 07:41 Dose: 21 mg Ondansetron HCl (Zofran) 4 mg IVP Q6HR PRN; Protocol PRN Reason: Nausea And Vomiting Stop: 04/01/17 17:57 Oxycodone/Acetaminophen (Percocet 5/325) 1 each PO Q4HR PRN PRN Reason: Severe Pain Stop: 04/01/17 17:57 Potassium Chloride (Potassium Chloride) 20 meq PO DAILY ALONSO Stop: 04/02/17 09:01 Last Admin: 10/01/16 07:42 Dose: 20 meq Rosuvastatin Calcium (Crestor) 40 mg PO HS ALONSO Stop: 04/01/17 21:01 Last Admin: 09/30/16 20:16 Dose: 40 mg Ticagrelor (Brilinta) 90 mg PO BID ALONSO Stop: 04/01/17 21:01 Last Admin: 10/01/16 07:42 Dose: 90 mg Laboratory Tests 09/30/16 10/01/16 10/01/16 20:17 06:25 06:25 WBC 10.6 Hgb 13.2 D Potassium 3.8 D Creatinine 0.81 Glucose 263 H POC Glucose 486 H* - Imaging and Cardiology Chest Xray: report reviewed Echo: report reviewed Cardiac cath: report reviewed - EKG Interpretation EKG results cardiology: personally reviewed (ECG with SR, HR 96. ST elevation noted in V1, V2, V3, V4, V5.), other (Telemetry reviewed with average HR 87, sinus rhythm. PVCs, couplets, PACs, and one 4 beat run of atrial tachycardia noted.) Consult Discharge Plan - Plan Referrals: judy,Jagdeep Jones MD [Primary Care Provider] -
--- NOTE | 2016-10-01 17:47 | Internal Medicine Consult Note ---
Date of Encounter: 10/01/16 Time of Encounter: 16:30 - Assessment and Plan (1) Diabetes Current Visit: Yes Status: Chronic Assessment and plan: Pt with elevated blood sugars in the setting of STEMI. Restart insulin. Add coverage No need to change doses or hold discharge based on blood sugars Follow with PCP Qualifiers: Diabetes mellitus type: type 2 Diabetes mellitus complication status: with hyperglycemia Diabetes mellitus alf insulin use: with terminologist use Qualified Code(s): E11.65 - Type 2 diabetes mellitus with hyperglycemia; Z79.4 - [facility] (current) use of insulin (2) Nicotine dependence Current Visit: Yes Status: Chronic Assessment and plan: Cessation counsellling. Qualifiers: Nicotine product type: cigarettes Substance use status: uncomplicated Qualified Code(s): F17.210 - Nicotine dependence, cigarettes, uncomplicated (3) ST elevation myocardial infarction (STEMI) Current Visit: Yes Status: Acute Assessment and plan: Per cardiology. Qualifiers: Involved coronary artery: LAD coronary artery Qualified Code(s): I21.02 - ST elevation (STEMI) myocardial infarction involving left anterior descending coronary artery Internal Medicine - CN: HPI - Data of Consult Patient: new to practice Consult date: 10/01/16 Requesting Physician: Cal Fallon MD - Consult Narrative Reason for consult: Diabetes History of present illness: Mr. Suarez is a 61 year old male admitted to hospital for acute STEMI. He has hx of insulin requiring diabetes and blood sugars have been uncontrolled since admission. At this time Mr. Suarez is feeling OK except for some dyspnea attributed to Brlinta. His blood sugars were over 400 yesterday but in 200s today. At home sugars are controlled fair when he takes his medications but will be over 300 if he does not take insulin. He anticipates going home tomorrow. Past Med Surg Social Fam HX - Past Medical History Medical history: COPD, diabetes, hyperlipidemia, hypertension, myocardial infarction Psychiatric history: depression - Past Surgical History Surgical History: other (Stent cardiac) - Social History Smoking Status: Current every day smoker Packs per day: 3 Smokeless Tobacco Status: No Alcohol use: none Drug use: none, marijuana - Family History Father Age at : 72 Cause of : cirrhosis Mother Living Status: Age at : 75 Cause of : alzheimers All systems: reviewed and no additional remarkable complaints except as stated - Constitutional Constitutional: fatigue - EENT Nose, mouth and throat: no nasal congestion, no nasal discharge - Cardiovascular Cardiovascular ROS IM: dyspnea Additional comments: Recent STEMI. - Respiratory Respiratory: dyspnea, no dyspnea on exertion, no wheezing - Gastrointestinal Gastrointestinal: no diarrhea, no hematemesis, no hematochezia, no melena - Musculoskeletal Musculoskeletal ROS IM: no arthralgias, no joint swelling - Neurological Neurological ROS: no convulsions, no tremor(s) Internal Medicine - CN: Meds Insulin ASPART [NovoLOG] 4 - 10 unit SQ TIDWM MDD per sliding scale 10/01/16 [ History] Insulin Glargine [Lantus] 65 unit SQ HS 10/01/16 [History] Metformin HCl [Glucophage] 1,000 mg PO BID 10/01/16 [History] See Pharmacy Note 10/01/16 [History] Allergies codeine Allergy (Verified 10/01/16 08:03) Itching, Rash Internal Medicine - CN: Exam - Constitutional Vitals: Temp Pulse Resp BP Pulse Ox 97.7 F 85 26 85/72 97 10/01/16 15:58 10/01/16 17:00 10/01/16 17:00 10/01/16 17:00 10/01/16 17:00 General appearance IM: Present: A&O X 3, pleasant, answers questions appropriately - Head Head exam: Present: normocephalic - Eye Eye exam: Present: EOMI, conjuntiva pink - ENT ENT exam: Present: mucous membranes moist - Neck Neck exam general surgery: Present: normal inspection. Absent: lymphadenopathy , thyromegaly - Respiratory Respiratory exam: Present: CTAB. Absent: rales, rhonchi, wheezes - Cardiovascular Cardiovascular exam IM: Present: RRR. Absent: tachycardia - GI/Abdominal GI/Abdominal exam IM: Present: soft. Absent: mass, tenderness - Extremities Exam Extremities exam IM: Present: full ROM, warm - Expanded Upper Extremities Exam Hand wrist exam: Present: amputation - Neurological Exam Neurological exam: Present: alert, oriented X3, no focal deficits - Psychiatric Psychiatric exam: Present: normal affect, normal mood - Skin Skin exam IM: Present: dry, warm. Absent: rash Internal Medicine - CN: Reslt - Labs CBC & Chem 7: 10/01/16 06:25 10/01/16 06:25 Labs: Short CBC 10/01/16 Range/Units 06:25 WBC 10.6 (4.3-11.1) K/mcL Hgb 13.2 D (12.9-16.9) g/dL Hct 40.2 (37.5-50.1) % Plt Count 147 (140-400) K/mcL Neutrophils # 8.5 (1.6-8.9) K/mcL BMP 10/01/16 06:25 Sodium 138 Potassium 3.8 D Chloride 104 Carbon Dioxide 28 BUN 14 Creatinine 0.81 Glucose 263 H Calcium 9.0 D - ABG Interpretation ABG results: PT/INR, D-dimer PT 11.8 Seconds (9.4-12.1) 09/30/16 16:30 Consult Discharge Plan - Plan Referrals: Jagdeep Rodriguez MD [Primary Care Provider] -
[2016-10-01] MEDS ORDERED: D5% in Water 1,000 ML IVC PRN (18:46)
[2016-10-01] MEDS ORDERED: *HR* HYDROcodone/Acet 5/325 mg TABLET PO PRN (18:46)
[2016-10-01] MEDS ORDERED: Ondansetron 4 MG/2 ML VIAL IVP PRN (18:46)
[2016-10-01] MEDS ORDERED: Acetaminophen 325 MG TABLET PO PRN (18:46)
[2016-10-01] MEDS ORDERED: *HR* Morphine 2 MG/ML SYRINGE IVP PRN (18:46)
[2016-10-01] MEDS ORDERED: *HR* Dextrose 50 % in Water (Syg) 50 ML SYRINGE IVP PRN (18:46)
[2016-10-01] MEDS ORDERED: Dextrose Gel 15 GM PO PRN ×2 (18:46)
[2016-10-01] MEDS ORDERED: *HR* OxyCODONE/APAP 5/325 TABLET PO PRN (18:46)
[2016-10-01] MEDS ORDERED: Insulin DETEMIR 100 UNIT/ML X5UNITS SQ SCH ×2 (21:00)
[2016-10-01] MEDS ORDERED: Insulin LISPRO 300 UNITS/3 ML VIAL SQ SCH (21:00)
[2016-10-02] MEDS ORDERED: *HR* Enoxaparin 40 MG/0.4 ML SYRINGE SQ SCH ×2 (06:00)
--- NOTE | 2016-10-02 07:00 | Electrocardiograph Report ---
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
--- NOTE | 2016-10-02 07:01 | Electrocardiograph Report ---
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
[2016-10-02] MEDS: Insulin LISPRO 300 UNITS/3 ML VIAL SQ SCH ×2 (08:07→12:04)
[2016-10-02 08:34] VITALS: BP 123/86
[2016-10-02] MEDS ORDERED: Magnesium Oxide 400 MG TABLET PO SCH (09:00)
[2016-10-02] MEDS ORDERED: Nicotine 21 MG PATCH.TD24 TD SCH (09:00)
[2016-10-02] MEDS ORDERED: Aspirin 81 MG TAB.CHEW PO SCH (09:00)
--- NOTE | 2016-10-02 09:40 | Internal Med Progress Note ---
Addendum entered and electronically signed by Francois Whittington DO 10/02/16 13:29: Discussed with patient adding metformin to his diabetic regimen. He states he was on it in the past but unsure why he was taken off. He is agreeable to restart. Rx written for metformin 500mg PO BID Original Note: <Francois Whittington - Last Filed: 10/02/16 09:36> Date of Encounter: 10/02/16 Time of Encounter: 09:36 - Assessment and plan (1) Diabetes Status: Chronic Assessment and plan: Blood sugars are much better controlled after restarting his long-acting insulin last night. Since his long-acting insulin has been restarted, blood sugars have been under good control. Continue current regimen. Recommend follow-up with PCP at discharge. 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 (2) ST elevation myocardial infarction (STEMI) Status: Acute Assessment and plan: Management per cardiology Qualifiers: Involved coronary artery: LAD coronary artery Qualified Code(s): I21.02 - ST elevation (STEMI) myocardial infarction involving left anterior descending coronary artery (3) Nicotine dependence Status: Chronic Assessment and plan: Discussed smoking cessation Qualifiers: Nicotine product type: cigarettes Substance use status: uncomplicated Qualified Code(s): F17.210 - Nicotine dependence, cigarettes, uncomplicated - Subjective Interval history: Patient seen and examined at bedside. Patient has no complaints at this time. Denies chest pain, shortness of breath. He states that his diabetes is not well controlled and he does not check his blood sugars at home. - Constitutional Vitals: Temp Pulse Resp BP Pulse Ox 96.6 F L 88 12 123/86 95 10/02/16 07:59 10/02/16 08:05 10/02/16 08:05 10/02/16 08:05 10/02/16 08:05 General appearance: Present: A&O X 3, pleasant, answers questions appropriately - Respiratory Respiratory exam: Present: CTAB. Absent: rales, rhonchi, wheezes - Cardiovascular Cardiovascular exam: Present: RRR. Absent: gallop, rubs, systolic murmur - GI/Abdominal GI/Abdominal exam: Present: normal bowel sounds, soft. Absent: distended, tenderness - Neurological Exam Neurological exam: Present: alert, CN II-XII intact, oriented X3, no focal deficits Internal Medicine: Result - Labs CBC & Chem 7: 10/01/16 06:25 10/01/16 06:25 - ABG Interpretation ABG results: PT/INR, D-dimer PT 11.8 Seconds (9.4-12.1) 09/30/16 16:30 Consult Discharge Plan - Plan Instructions: Myocardial Infarction (DC), Chest Pain (DC), Diabetes Mellitus Type 2 in Adults (DC) Additional Instructions: RISK FACTORS: STOP SMOKING: If you smoke, STOP. Smoking or tobacco use significantly increases your risk of heart disease because nicotine causes the arteries to narrow or constrict. It also causes fats to stick to the artery. Your chances of having a heart attack are greatly increased if you continue to smoke. For more information, call the education line for smoking cessation 7-597-HMTHRQN EAT A LOW FAT/CHOLESTEROL/SODIUM DIET: This diet may help reduce your chances of having a heart attack. LIFTING: With affected extremity: Avoid bending, pushing off and lifting more than 2 pounds for 24 hours The following 48 hours, avoid lifting anything more than 5 pounds Avoid strenuous activity or repetitive motions ACTIVITY: You may walk or climb stairs as tolerated You can resume sexual activity as tolerated In general, you are encouraged to engage in a minimum of 30 minutes or more of moderate intensity physical activity, such as brisk walking, daily or at least 3 -4 times weekly BATHING Do not submerge the site into water (bath tub, hot tub, swimming pool, dishes) for 1 week. This can be a source for infection into the blood stream. You may shower after 24 hours SITE CARE: After 24 hours, you may remove the dressing and leave the site open to air. Keep the site clean and dry. Clean gently and pat dry. You can expect bruising and tenderness that gradually resolve within a week or two. Return to work as instructed per your physician Resume driving as instructed per physician Keep all scheduled follow up appointments Resume medications as instructed IMPORTANT: If prescribed a Platelet Aggregation Inhibitor such as, Plavix, Brilinta or Effient: Duration of therapy is minimum one year These medications are often used in combination with Aspirin in prevention of future heart attacks Never discontinue unless consult with your Computer Clerk STROKE (CVA) Risk factors for a stroke are: Age, cigarette smoking, diabetes, excessive alcohol consumption, family history, high blood pressure, overweight, physical inactivity, prior stroke, heart attack, diagnosis of carotid artery stenosis or other artery disease. Warning signs: Sudden numbness or weakness of the face, arm or leg; especially on one side of the body, sudden confusion, trouble speaking or understanding, sudden trouble seeing in one or both eyes, sudden trouble walking, dizziness, loss of balance or coordination, sudden severe headache with no cause. Call 911 or go to the Emergency Room. CONGESTIVE HEART FAILURE: If you have been diagnosed with Congestive Heart Failure (CHF) and your symptoms return, make an appointment with your physician Weigh yourself daily. Notify your physician if you have a weight gain of two or more pounds in one day or five or more pounds in one week. If you experience any difficulty breathing, please call 911 BLEEDING: Although the risk of bleeding is minimal, it can happen. If you have any bleeding from the site, apply firm pressure above the puncture site for 10-15 minutes. If the bleeding does not stop, continue manual pressure and call 911 Contact [facility] ( ) if: You develop a fever greater than 101 degrees Fahrenheit Your site becomes reddened or has any drainage You have an increase in pain or burning at the site or if a large knot forms at the site. If you experience chest pain, shortness of breath, dizziness, or extreme tiredness, stop the activity and rest. Please notify [facility] office if you experience any of these symptoms and they are not relieved by rest please call 911! [place] [facility] [place] [Primary Care Provider] - Prescriptions: Aspirin 81 mg PO DAILY #30 tab Carvedilol [Coreg] 6.25 mg PO BIDWM #60 tab Clopidogrel [Plavix] 75 mg PO DAILY #30 tab Lisinopril [Zestril] 2.5 mg PO DAILY #30 tab Potassium Chloride 20 meq PO DAILY #30 tab Rosuvastatin [Crestor] 40 mg PO HS #30 tab <Sidney Borjas H - Last Filed: 10/02/16 14:41> Date of Encounter: 10/02/16 - Constitutional Vitals: Temp Pulse Resp BP Pulse Ox 96.7 F L 73 16 123/86 90 10/02/16 11:47 10/02/16 10:07 10/02/16 12:04 10/02/16 08:05 10/02/16 11:38 Internal Medicine: Result - Labs CBC & Chem 7: 10/01/16 06:25 10/01/16 06:25 - ABG Interpretation ABG results: PT/INR, D-dimer PT 11.8 Seconds (9.4-12.1) 09/30/16 16:30 - Attending Attestation Continue Lantus 65 units at night, continue insulin sliding scale of short- acting insulin at home ADA diet 1800 kcal Add metformin, increased dose with primary care physician I examined this patient and my medical decision-making was reviewed with the Resident Physician. I agree with the documented findings, disposition and treatment plan as described except to the extent set forth below.
[2016-10-02] MEDS: Albuterol 2.5 MG/3 ML NEBULIZER IH PRN (11:37)
--- NOTE | 2016-10-02 11:56 | Discharge Summary ---
Date of Encounter: 10/02/16 Time of Encounter: 10:00 - Discharge Diagnosis (1) ST elevation myocardial infarction (STEMI) Priority: Primary Status: Acute Comments: STEMI on admission with emergent LHC. Qualifiers: Involved coronary artery: LAD coronary artery Qualified Code(s): I21.02 - ST elevation (STEMI) myocardial infarction involving left anterior descending coronary artery (2) Ischemic cardiomyopathy Priority: Secondary Status: Acute Comments: LVEF (3) Nicotine dependence Priority: Secondary Status: Chronic Comments: Known nicotine dependence. Qualifiers: Nicotine product type: cigarettes Substance use status: uncomplicated Qualified Code(s): F17.210 - Nicotine dependence, cigarettes, uncomplicated - Discharge Medications Prescriptions: Aspirin 81 mg PO DAILY #30 tab Carvedilol [Coreg] 6.25 mg PO BIDWM #60 tab Clopidogrel [Plavix] 75 mg PO DAILY #30 tab Lisinopril [Zestril] 2.5 mg PO DAILY #30 tab Potassium Chloride 20 meq PO DAILY #30 tab Rosuvastatin [Crestor] 40 mg PO HS #30 tab Home Medications: Insulin ASPART [NovoLOG] 4 - 10 unit SQ TIDWM MDD per sliding scale 10/01/16 [ History] Insulin Glargine [Lantus] 65 unit SQ HS 10/01/16 [History] Metformin HCl [Glucophage] 1,000 mg PO BID 10/01/16 [History] See Pharmacy Note 10/01/16 [History] Aspirin 81 mg PO DAILY #30 tab 10/02/16 [Rx] Carvedilol [Coreg] 6.25 mg PO BIDWM #60 tab 10/02/16 [Rx] Clopidogrel [Plavix] 75 mg PO DAILY #30 tab 10/02/16 [Rx] Insulin LISPRO [HumaLOG] 0 units SQ HS vial 10/02/16 [Rx] Lisinopril [Zestril] 2.5 mg PO DAILY #30 tab 10/02/16 [Rx] Potassium Chloride 20 meq PO DAILY #30 tab 10/02/16 [Rx] Rosuvastatin [Crestor] 40 mg PO HS #30 tab 10/02/16 [Rx] Allergies/Adverse Reactions: Allergies codeine Allergy (Verified 10/01/16 08:03) Itching, Rash Date of admission: 09/30/16 17:58 Primary care physician: Jagdeep Rodriguez MD Consults: 09/30/16 18:32 Consult to Outreach Professional [CONS] Routine Reason for SW Consult: Financial concerns. 10/01/16 15:05 Consult to Hospitalist [CONS] Routine Consulting Provider: Og Shen Reason for Consult: DM management Call Completed: Yes Discharging clinician: Callie Hester Anticipated date of discharge: 10/02/16 - Patient Status Disposition: Home, Self-Care Condition: Good Functional capacity at discharge: independent ambulation Overall status at discharge: patient is progressing back to baseline - Discharge Instructions Follow Up With: Jagdeep Rodriguez MD [Primary Care Provider] - Additional Instructions: RISK FACTORS: STOP SMOKING: If you smoke, STOP. Smoking or tobacco use significantly increases your risk of heart disease because nicotine causes the arteries to narrow or constrict. It also causes fats to stick to the artery. Your chances of having a heart attack are greatly increased if you continue to smoke. For more information, call the education line for smoking cessation 6-753-LSKVIOH EAT A LOW FAT/CHOLESTEROL/SODIUM DIET: This diet may help reduce your chances of having a heart attack. LIFTING: With affected extremity: Avoid bending, pushing off and lifting more than 2 pounds for 24 hours The following 48 hours, avoid lifting anything more than 5 pounds Avoid strenuous activity or repetitive motions ACTIVITY: You may walk or climb stairs as tolerated You can resume sexual activity as tolerated In general, you are encouraged to engage in a minimum of 30 minutes or more of moderate intensity physical activity, such as brisk walking, daily or at least 3 -4 times weekly BATHING Do not submerge the site into water (bath tub, hot tub, swimming pool, dishes) for 1 week. This can be a source for infection into the blood stream. You may shower after 24 hours SITE CARE: After 24 hours, you may remove the dressing and leave the site open to air. Keep the site clean and dry. Clean gently and pat dry. You can expect bruising and tenderness that gradually resolve within a week or two. 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 Warning signs: Sudden numbness or weakness of the face, arm or leg; especially on one side of the body, sudden confusion, trouble speaking or understanding, sudden trouble seeing in one or both eyes, sudden trouble walking, dizziness, loss of balance or coordination, sudden severe headache with no cause. Call 911 or go to the Emergency Room. CONGESTIVE HEART FAILURE: If you have been diagnosed with Congestive Heart Failure (CHF) and your symptoms return, make an appointment with your physician Weigh yourself daily. Notify your physician if you have a weight gain of two or more pounds in one day or five or more pounds in one week. If you experience any difficulty breathing, please call 911 BLEEDING: Although the risk of bleeding is minimal, it can happen. If you have any bleeding from the site, apply firm pressure above the puncture site for 10-15 minutes. If the bleeding does not stop, continue manual pressure and call 911 Contact [facility] ( ) if: You develop a fever greater than 101 degrees Fahrenheit Your site becomes reddened or has any drainage You have an increase in pain or burning at the site or if a large knot forms at the site. If you experience chest pain, shortness of breath, dizziness, or extreme tiredness, stop the activity and rest. Please notify [facility] office if you experience any of these symptoms and they are not relieved by rest please call 911! - Diet and Activity Activity: increase activity as tolerated Diet: low fat, low cholesterol, low salt diet - Hospital Course Hospital course: Mr. Suarez is a 61 year old male who presented to [facility] with acute STEMI. 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 [facility] with 100% LAD occlusion. Drug eluding stent was placed. Balloon angioplasty was performed to diagonal. Echo with LVEF 35%. On asa, statin, beta blokcer, plavix, and ryley inhibitor. Patient had been on brilinta, however complained of shortness of breath. Patient was started on plavix yesterday. Patient denies shotrness of breath since plavix. Right radial access site education given to patient. Patient educated on dual anti-platelet therapy for at least one year uninterrupted. Patient states understanding. Will repeat echocardiogram in 3 months to evaluated LVEF. Patient is being prepped for discharge today in stable condition. Patient will follow with [facility], follow up set. Patient typically follow with , however states ok to schedule first follow up appointment in [place]. Patient educated to call cardiology for worsening symptoms or with any concerns or difficluties obtaining medications. Patient states understanding. - Time Spent with Patient Total time spent providing and/or coordinating discharge services: Less than 30 minutes Physical Examination Vital Signs, Last 4 Hours Temp Pulse Resp BP Pulse Ox 10/02/16 11:47 96.7 F L 10/02/16 11:38 16 90 10/02/16 10:07 73 16 90 10/02/16 08:05 88 12 123/86 95 10/02/16 07:59 96.6 F L General: Conversant, No Apparent Distress HEENT: Atraumatic, Normocephaly, Mucus Membranes Moist Neck: No JVD, Normal carotid pulses Cardiac: Reg Rate and Rhythm, Normal S1 and S2, No Murmur Lungs: Normal Breath Sounds, No Wheeze, Rales, Rhonchi Neuro: Alert and responsive, No focal deficits noted Abdomen: Soft, Non-Tender Skin: No rashes noted on visualized skin Musculoskeletal: No Chest Wall Tenderness, Other (Right radial access site without hematoma or ecchymosis. ) Extremities: No Clubbing, No Cyanosis, No Edema, Normal Pulses
--- NOTE | 2016-10-02 12:31 | Event Note ---
Date of Encounter: 10/02/16 Time of Encounter: 12:30 - Cardiology Event Note Per discussion with , patient is stable for discharge from DM standpoint. He recommends continuing home DM medications and follow up with PCP. Patient educated.
--- NOTE | 2016-10-02 14:29 | Electrocardiograph Report ---
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
--- NOTE | 2016-10-02 17:59 | Invasive Diagnostic Lab ---
Name: Ananth Suarez Date of Study: 09/30/2016 Date: 1955 Ht: 182.9 cm /72.0 in Medical Record#: [id number] Age: 61 Wt: 96. kg / 211.64 lb Account/Order#: [id number] Gender: Male BSA: 2.18 Order #: [id number] Fluoro Dose: 829 mGy BMI: 28.7 Procedure Physician: Cal Fallon MD, [facility] Referring MD: Referring MD: Procedures Performed: PCI of Acute VA LEFT HEART CATH PTCA each add'l branch Indications: STEMI Impressions: There is severe one vessel coronary artery disease. The left ventricle has abnormal contractility EF 25% Patient had successful PTCA/Drug-Eluting Stent placement in the mid LAD. Patient had successful PTCA in the Diagonal. Recommendations: Optimal medical therapy of patient's disease. Aggressive risk factor modification. History/Risk Factors: COPD Hypertension Dyslipidemia Current/Recent Smoker Procedure Access obtained in the right Radial artery by percutaneous puncture Patient had successful PTCA in the Diagonal. Patient had successful PTCA/Drug-Eluting Stent placement in the mid LAD. Complications: None, None Contrast: Isovue 154ml Hemodynamics: Pressures Site Systolic/ A Wave Diastolic/ V Wave End Diastolic/ Mean HR AO 112 73 89 91 AO 104 69 86 93 AO 38 13 25 88 LV 96 5 16 89 LV 91 9 32 110 AO 75 35 57 115 LV 86 2 28 77 AO 75 47 61 86 LV Ventriculography Ejection Method: LV Gram Ejection Fraction: 25% Wall Motion: HARMON Anterobasal Severe Hypokinesis Anterolateral Severe Hypokinesis Apical: Severe Hypokinesis Inferoapical Normal Inferobasal Normal Coronary Dominance: right Lesion Findings/Interventions * Left Main Coronary Artery There is a 40% stenosis in the LMCA. * Left Anterior Descending There is a 32 mm long, 100% in stent restenosis in the Mid LAD. The lesion has a HILARIA flow of 0. An intervention was performed on the Mid LAD with a final stenosis of 0%. There were no lesion complications. The final HILARIA flow was 3. There is a 15 mm long, 99% stenosis in the 1st Diagonal. The lesion has a HILARIA flow of 2. An intervention was performed on the 1st Diagonal with a final stenosis of 80-90%. There were no lesion complications. The final HILARIA flow was 3. * Circumflex The Circumflex has mild disease The 1st Marginal has mild disease * Right Coronary Artery There is a 20% stenosis in the Mid RCA. There is a 40% stenosis in the Right PDA. Interventional Device(s) Vessel Segment Type Name Diameter (mm) Length (mm) Mid LAD Balloon Emerge Monorail 2.5 20 Mid LAD Drug Eluting Stent Synergy 2.25 32 Mid LAD Balloon NC Emerge 3 15 1st Diagonal balloon Emerge Monorail 2 15 1st Diagonal balloon Quality Control Associate Monorail 1.2 12 Updated by RT Laura(R) on 09/30/2016 6:00:35 PM Cal Fallon MD, FACC electronically signed on 10/02/2016 5:53:06 PM with status of Final
== END 2016-10-02 12:57 | disposition home or self-care (01) | DRG 247 ==
LOC: EMEROO 16:10 → ICNU 16:10 → SUATTDRO 17:58
PROVIDERS: ADMIT Emergency Medicine; ATTEND Internal Medicine

== ENCOUNTER 2016-10-14 01:25 | Inpatient (IN) ==
[2016-10-14] MEDS ORDERED: 0.9 % Sodium Chloride 1,000 ML ONE ×2 (02:05→02:13)
[2016-10-14] MEDS ORDERED: Heparin 1,000 UNITS/500 mL NS 500 ML ONE (02:06)
[2016-10-14] MEDS ORDERED: *HR* Heparin 10,000 UNIT/10 ML VIAL ONE (02:06)
[2016-10-14] MEDS ORDERED: Verapamil 5 MG/2 ML VIAL ONE (02:07)
[2016-10-14] MEDS ORDERED: Nitroglycerin 1,000 MCG/10 ML VIAL IV ONE (02:07)
[2016-10-14] MEDS ORDERED: *HR* Midazolam HCl 5 MG/5 ML VIAL IVP ONE (02:13)
[2016-10-14] MEDS ORDERED: *HR* FentaNYL (PF) 250 MCG/5 ML VIAL ONE (02:13)
--- NOTE | 2016-10-14 02:46 | Pre-Sedation Evaluation ---
Pre-sedation evaluation - Pre-sedation checklist Date of procedure: 10/14/16 Procedure: lhc H&P (including ROS) documented in medical record: Yes Previous reaction to sedatives/anesthetics: No Dietary Status: NPO after Midnight Airway Assessment: Patient can open mouth completely, TMJ function normal Dentition: No loose teeth or bridges Possible difficult airway: No ASA Classification *see protocol: CLASS II-Mild systemic disease
--- NOTE | 2016-10-14 03:09 | Procedure Note ---
Date of procedure: 10/14/16 Pre-op diagnosis: ACS Post-op diagnosis: same Procedure: Left heart catheterization Left ventriculogram Selective coronary arteriography Cardiac catheterization for coronary anatomy Sheath placement right radial artery Left main: No significant disease Left anterior descending: Widely patent stent from proximal to mid, diagonal branch with ostial 70% stenosis Circumflex artery: 30% mid, obtuse marginal branch with 20% stenosis Right coronary artery: Dominant, 20% proximal stenosis, 20% distal stenosis, and 20% stenosis in the posterior descending artery Left ventriculogram: Ejection fraction 35% with anterior hypokinesis, images suboptimal LVEDP: 24 mmHg Impression Abnormal echocardiogram concerning for STEMI Elevated troponin Widely patent stent in the left anterior descending artery Elevated left ventricular end-diastolic pressure Acute on chronic systolic congestive heart failure Hypoxia Short of breath Plan Admit to intensive care unit DAPT CV and CHF meds Diuresis DC tobacco Serial troponin levels Anesthesia: local, IV sedation Surgeon: Jagdeep Marie Pathology: none sent Condition: stable Disposition: ICU
[2016-10-14 03:12] LABS: ABG Base Excess 2.8 mEq/L (-2.0 to 3.0); ABG HCO3 29.3 mEQ/L (21-27); ABG Oxygen Saturation 91 % (95-98); ABG PCO2 53 mmHg (35-45); ABG PH 7.35 pH Units (7.32-7.45); ABG PO2 65 mmHg (85-104); ABG TCO2 30.9 mEq/L (20-26)
[2016-10-14 03:13] LABS: Blood Gas FiO2 40 %
[2016-10-14] MEDS ORDERED: Acetaminophen 325 MG TABLET PO PRN (04:03)
[2016-10-14] MEDS ORDERED: Naloxone 0.4 MG/ML INJ IVP PRN (04:03)
[2016-10-14] MEDS ORDERED: *HR* Dextrose 50 % in Water (Syg) 50 ML SYRINGE IVP PRN (04:06)
[2016-10-14] MEDS ORDERED: Dextrose Gel 15 GM PO PRN ×2 (04:06)
[2016-10-14] MEDS ORDERED: D5% in Water 1,000 ML IVC PRN (04:06)
[2016-10-14] MEDS ORDERED: Insulin DETEMIR 100 UNIT/ML X5UNITS SQ ONE (04:08)
--- NOTE | 2016-10-14 04:25 | Internal Med History&Physical ---
<Geroniom Reddy - Last Filed: 10/14/16 04:13> Date of Encounter: 10/14/16 Time of Encounter: 04:13 Assessment and Plan (1) Acute exacerbation of CHF (congestive heart failure) Current visit: Yes Status: Acute Patient has history of CHF. Has not been compliant with Lasix on home dosing. He has had increased edema bilateral lower extremities, worsening orthopnea. Left Heart Catheter today was negative for any new lesions. Known EF of 30-35% . Patient was given IV 40 mg Lasix at outside facility and placed on BiPAP. Patient tolerated BiPAP well, ABG improving. Patient has requested trial off BiPAP. Nasal cannula oxygen BiPAP as needed Daily Lasix dosing Cardiac/pulse ox monitoring Fluid restriction Qualifiers: Congestive heart failure type: unspecified congestive heart failure type Qualified Code(s): I50.9 - Heart failure, unspecified (2) Dyspnea Current visit: Yes Status: Acute See above Qualifiers: Dyspnea type: shortness of breath Qualified Code(s): R06.02 - Shortness of breath; R06.00 - Dyspnea, unspecified; R06.01 - Orthopnea (3) COPD (chronic obstructive pulmonary disease) Current visit: Yes Status: Acute History of COPD. Uses albuterol as needed at home along with steroid inhaler. Mild wheezing on exam. We will continue home medications. Qualifiers: COPD type: chronic bronchitis Chronic bronchitis type: simple Qualified Code(s): J41.0 - Simple chronic bronchitis (4) Elevated troponin Current visit: Yes Status: Acute Troponin elevated at 4.41. Patient had left heart catheter today, no new lesions or stent placement. No active chest pain. This is likely secondary to recent heart catheter and stent placement. Cardiology consulted and are following Trend troponins (5) Hyperglycemia Current visit: Yes Status: Acute Initial glucose 508. Normal anion gap. Patient was given 10 units of insulin at outside facility and repeat glucose here was 347. We will give the patient 10 units of Levemir, place on medium dose sliding scale index ACHS glucose checks Diabetic diet (6) Diabetes Current visit: No Status: Chronic See above Qualifiers: Diabetes mellitus type: type 2 Diabetes mellitus complication status: with hyperglycemia Diabetes mellitus intermediate manager insulin use: with intermediate manager use Qualified Code(s): E11.65 - Type 2 diabetes mellitus with hyperglycemia; Z79.4 - terminologist (current) use of insulin (7) Hyperkalemia Current visit: Yes Status: Acute Potassium 6.4. Patient has received insulin dosing for hyperglycemia, which will help with high potassium. We will also give the patient Kayexalate by mouth (8) Nicotine dependence Current visit: No Status: Chronic long-term smoking history. Recently decrease smoking from 3 packs a day to 1 pack a day about 2 weeks ago. We will order nicotine patch Qualifiers: Nicotine product type: cigarettes Substance use status: uncomplicated Qualified Code(s): F17.210 - Nicotine dependence, cigarettes, uncomplicated (9) DVT prophylaxis Current visit: Yes Status: Acute [facility] Internal Medicine - H&P: HPI Chief complaint: dyspnea Admitted From: Intrahospital Transfer Plans for Post Hospital Care: Home History of present illness: Mr. Suarez is a 61 year old male with past medical history of COPD, CHF, diabetes, hyperlipidemia, hypertension, recent TX with stent placement on . EF 30-35%. He presented to [facility] today due to shortness of breath. Patient denied any chest pain today but states that he was significantly short of breath and was unable to lay flat in bed. EMS was called. He was in mild to moderate respiratory distress when presenting to [facility] ED, and he was placed on BIPAP. Received DuoNeb in route. Labs show CBC within normal limits. BMP shows potassium 6.4, glucose 508. Troponin 4.41. BNP 709. ABG showed pH 7.31, CO2 61, O2 192, HCO3 30.3. Patient was given 10 units of insulin for hyperglycemia. Also given 40 mg of Lasix for possible CHF exacerbation. ED physician spoke with attending hospitalist who accepted the patient for transfer. Patient was taken to the [facility] by Dr. Marie. Evaluation of stent was normal. Patient did not require any additional stenting. Upon arrival to the ICU, the patient was on BiPAP, tolerating it well. He said that his breathing was significantly improved while on BiPAP. Denies any chest pain, nausea, vomiting, fevers, abdominal pain, diarrhea, constipation. He states that he previously was prescribed Lasix. He was unable to afford Lasix for the past 2 months so he has not been taking it. He tried to get in with family physician to restart Lasix and was unable to do so. He does note increased swelling of the bilateral lower extremities, worsened breathing when lying flat at night. Past Med Surg Social Fam HX - Past Medical History Medical history: COPD, diabetes, hyperlipidemia, hypertension, myocardial infarction Psychiatric history: depression - Past Surgical History Surgical History: angioplasty/stent, other (Stent cardiac) - Social History Smoking Status: Current every day smoker Smokeless Tobacco Status: No Alcohol use: none Drug use: marijuana - Family History Mother Living Status: Internal Medicine - H&P: Meds Insulin ASPART [NovoLOG] 4 - 10 unit SQ TIDWM MDD per sliding scale 10/01/16 [ History] Insulin Glargine [Lantus] 65 unit SQ HS 10/01/16 [History] Metformin HCl [Glucophage] 1,000 mg PO BID 10/01/16 [History] See Pharmacy Note 10/01/16 [History] Aspirin 81 mg PO DAILY #30 tab 10/02/16 [Rx] Carvedilol [Coreg] 6.25 mg PO BIDWM #60 tab 10/02/16 [Rx] Clopidogrel [Plavix] 75 mg PO DAILY #30 tab 10/02/16 [Rx] Insulin LISPRO [HumaLOG] 0 units SQ HS vial 10/02/16 [Rx] Lisinopril [Zestril] 2.5 mg PO DAILY #30 tab 10/02/16 [Rx] Potassium Chloride 20 meq PO DAILY #30 tab 10/02/16 [Rx] Rosuvastatin [Crestor] 40 mg PO HS #30 tab 10/02/16 [Rx] 3 Allergy/AdvReac Type Severity Reaction Status Date / Time codeine Allergy Itching, Verified 10/14/16 00:38 Rash All Systems PM: A 10-system review of systems was performed and is negative for pertinent findings except as documented above in the HPI. - Constitutional Constitutional: no fatigue, no fever(s) - Cardiovascular Cardiovascular ROS IM: dyspnea, no chest pain - Respiratory Respiratory: dyspnea, dyspnea on exertion, no cough, no wheezing - Gastrointestinal Gastrointestinal: no abdominal pain, no constipation, no nausea, no vomiting - Integumentary Integumentary IM: no rash - Neurological Neurological ROS: no numbness, no tingling, no weakness - Constitutional Vitals: Resp BP Pulse Ox 30 101/66 99 10/14/16 02:30 10/14/16 02:30 10/14/16 02:30 General appearance: Present: A&O X 3, no acute distress, answers questions appropriately - Head Head exam: Present: atraumatic, normocephalic - Eye Eye exam: Present: PERRL, conjuntiva pink, sclera anicteric Pupils: Present: PERRL - Neck Neck exam general surgery: Present: supple, trachea midline. Absent: lymphadenopathy - Respiratory Respiratory exam: Present: wheezes (Mild wheeze in right lower lobe). Absent: accessory muscle use, rales, rhonchi Additional comments: Tolerating BiPAP well on AVAPS mode - Cardiovascular Cardiovascular exam: Present: RRR, +S1, +S2. Absent: diastolic murmur, gallop, rubs, systolic murmur - GI/Abdominal GI/Abdominal exam: Present: normal bowel sounds, soft, no peritoneal signs. Absent: distended, tenderness - Extremities Exam Extremities exam: Present: pedal edema, warm, radial pulses palpable and symmetrical. Absent: calf tenderness, cyanotic Additional comments: Significant pitting edema of bilateral lower extremities - Neurological Exam Neurological exam: Present: CN II-XII intact, oriented X3, no focal deficits. Absent: pronater drift, facial droop, speech deficit - Skin Skin exam: Present: dry, intact Internal Med - H&P Results - ABG Interpretation ABG results: 10/14/16 03:00 ABG pH 7.35 ABG pCO2 53 H ABG pO2 65 L ABG HCO3 29.3 H ABG Total CO2 30.9 H ABG O2 Saturation 91 L ABG Base Excess 2.8 <Alex Almanzar - Last Filed: 10/14/16 05:44> Date of Encounter: 10/14/16 Internal Medicine - H&P: HPI History of present illness: Mr. Suarez is a 61 year old male All Systems PM: A 10-system review of systems was performed and is negative for pertinent findings except as documented above in the HPI. - Constitutional Vitals: Temp Pulse Resp BP Pulse Ox 97.9 F 84 26 115/88 100 10/14/16 03:25 10/14/16 04:42 10/14/16 03:25 10/14/16 03:25 10/14/16 03:25 Internal Med - H&P Results - ABG Interpretation ABG results: 10/14/16 03:00 ABG pH 7.35 ABG pCO2 53 H ABG pO2 65 L ABG HCO3 29.3 H ABG Total CO2 30.9 H ABG O2 Saturation 91 L ABG Base Excess 2.8 - Attending Attestation I have seen and examined pt independently. I have discussed the management plan with Resident Dr. Reddy. I have reviewed his note and agree with the documentation. Pt has Hx of systolic CHF. Pt stopped lasix for about a month. Present with acute SOB, denies chest pain. However pt has elevated troponin. LHC has been done, no new procedure being done. Will treat pt as CHF exacerbation with lasix , fluid restriction and low salt diet.
[2016-10-14] MEDS: Insulin LISPRO 300 UNITS/3 ML VIAL SQ SCH ×5 (04:28→21:08)
[2016-10-14] MEDS: *HR* Enoxaparin 40 MG/0.4 ML SYRINGE SQ SCH (06:15)
--- NOTE | 2016-10-14 08:41 | Invasive Diagnostic Lab Proc ---
Name: Ananth Suarez Date of Study: 10/14/2016 Date: 1955 Ht: 72.8in Medical Record#: [id number] Age: 61 Wt: 220.46lb Gender: Male BSA: 2.24 Order #: [id number] BMI: 29.22 Physicians Procedure Physician: Jagdeep Marie MD Referring MD: None Referring MD: Staff Name Position Time In Sylvia Isaac RT Monitor 02:31 AM JeramyDot RT (R) Scrub 02:31 AM Alejandro Richard RN Pedigree Tracer 02:31 AM Indications Indication STEMI Procedures Performed Procedure L HRT ARTERY/VENTRICLE ANGIO Pre-Procedure Checklist Informed consent is complete signed and on chart. H&P is on chart. ID band is on and ID verified with patient. Pt not NPO for procedure and MD aware. The procedure was described for the patient and questions were answered. Blood Pressure: 112/70 ECG is on chart. Rhythm: NSR Plan of Care Patient will tolerate the procedure without complications. Adequate level of comfort will be maintained. Hemodynamics will remain stable Patient will recover from procedure without complications. Respiratory function will be maintained. Cardiac rhythm will remain stable. Patient temperature will be maintained. Patient and/or family have verbalized understanding of the procedure. Patient Education Chief Complaint/Reason for Test: Cardiac Cath Developmental Category: Geriatric (65+ years) Developmentally Appropriate for Age: Yes Learning Barriers: None Education Needs: Procedure Education Method: Verbal Information Taught: Cardiac Cath Educational Evaluation: Able to repeat information Intravenous Access Time IV Size Location DC'd Fluid/Drip Rate Units RN 02:04 AM 20g 1 1/4" Patent On Arrival Lt Antecubital 0.9NaCl 25 ml/hr Alejandro Richard RN 02:04 AM 18g 1 1/4" Patent On Arrival Rt Antecubital Alejandro Richard RN Allergies CODIENE Vital Signs Time BP (mmHg) HR (bpm) O2 Sat. RR (bpm) LOC 02:05 AM 112 / 70 85 100 % 16 5 = Fully awake and oriented or at pre-proc level 02:32 AM / % 5 = Fully awake and oriented or at pre-proc level 02:32 AM / % 4 = Oriented but drowsy 02:38 AM 134 / 104 86 100 % 18 02:43 AM 112 / 78 97 98 % 21 02:48 AM 103 / 72 89 94 % 18 02:53 AM 101 / 66 80 93 % 22 02:58 AM 104 / 66 88 92 % 18 Procedural Medications Time Medication Dose Units Method Given By 02:46 AM Versed 1 mg Intravenous Alejandro Richard RN 02:46 AM Fentanyl 50 mcg Intravenous Alejandro Richard RN 02:48 AM Lidocaine 2% 3 ml Subcutaneous Jagdeep Marie MD 02:50 AM units Nitroglycerin 200 mcg Verapamil 2.5 mg Intraarterial Jagdeep Marie MD ASA Classification: CLASS II- Mild systemic disease (i.e. well-controlled diabetes, hypertension, asthma, cigarette smoking) Emergent Procedure: ASA score is assumed Hermilo Score Preprocedure Postprocedure Activity 2- Moves 4 extremities sustained head lift Activity 2- Moves 4 extremities sustained head lift Circulation 2- SBP +/= 20 points of pre-anesthetic level Circulation 2- SBP +/= 20 points of pre-anesthetic level Consciousness 2- Awake and alert oriented x 3 Consciousness 2- Awake and alert oriented x 3 O2 Saturation 1- Needs O2 inhalation to maintain O2 saturation of 90% O2 Saturation 1- Needs O2 inhalation to maintain O2 saturation of 90% Respiratory 2- Able to deep breathe and cough well Respiratory 2- Able to deep breathe and cough well Total Score 9 Total Score 9 Contrast Agent: Isovue Diagnostic Contrast: 61 ml Total Contrast: 61 ml Fluoro Dose: 380 mGy Procedure Log Time Note Enter By 02:09 AM CathStat 02:31 AM Pt arrived to general labor 2 at 02:31 02:31 AM Sylvia Isaac Position: Monitor Time in: 02: 02:31 AM Dot Deshpande RT (R) Position: Scrub Time in: 02:31 02:31 AM Alejandro Richard RN Position: Pedigree Tracer Time in: 02:31 02:31 AM Patient charges- Angio tray pack, Navilyst 3mm J, Pulse Oximetry and ACIST tubing and transducer 02:32 AM Case Delayed No 02:32 AM Hair removed from procedure site in procedure lab using clippers. Right wrist prepped with Chloraprep by Sylvia Isaac, safety strap applied then patient was draped. Skin intact. kk 02:32 AM Physician arrived 02:32 allner 02:32 AM ASA Class CLASS II- Mild systemic disease (i.e. well-controlled diabetes, hypertension, asthma, cigarette smoking) kk 02:32 AM Meet and greet completed kk 02:32 AM Sign in performed according to hospital policy. kk 02:32 AM Procedure start 02:32 kk 02:32 AM Time: 02:32 Patient comfortable and pain free: Yes kk 02:32 AM Time: 02:32LOC: 5 = Fully awake and oriented or at pre-proc level kkallner 02:37 AM Case Start 02:38 AM Vitals capture started with the following parameters, Patient=Adult, Interval=5 min, Initial Cuzczmcg=410 mmHg, Deflation Rate=5 mmHg, Cuff placed on Right Arm 02:38 AM HR=86 bpm, EIHR=574/104 mmhg, OmY9=346.0 %, Resp=18 B/min 02:42 AM Clinical Presentation: Non-STEMI [email or web address] 02:43 AM HR=97 bpm, OSWS=653/78 mmhg, SpO2=98.0 %, Resp=21 B/min 02:46 AM Time: 02:46 Versed 1 mg Intravenous Given by Alejandro Richard RN 02:46 AM Time: 02:46 Fentanyl 50 mcg Intravenous Given by Alejandro Richard RN 02:47 AM Pressure channel 3 zero failed. 02:47 AM Pressure channel 3 zeroed. 02:47 AM Time: 02:32LOC: 4 = Oriented but drowsy kk 02:47 AM Time: 02:32 Patient comfortable and pain free: Yes 02:48 AM Time out performed according to hospital policy kk 02:48 AM HR=89 bpm, TFRE=070/72 mmhg, SpO2=94.0 %, Resp=18 B/min 02:49 AM Time: 02:48 3 ml Lidocaine 2% to right radial Subcutaneous Given by Jagdeep Marie MD 02:50 AM Access obtained by percutaneous puncture. 6Fr 10cm Terumo Glidesheath sheath placed in right Radial artery. [id number] 02:50 AM Time: 02:50 Patient given 200 mcg Nitroglycerin, and 2.5 mg Verapamil Intraarterial by Jagdeep Marie MD 02:50 AM 5Fr FR 4 catheter inserted over the wire DNC kkallner 02:50 AM wire removed kkallner 02:52 AM Recorded Pressure: LV, HR=90, Condition=Condition 1 (Left Ventricle) LV 78/4/5 02:52 AM Recorded Pressure: LV, Ao, HR=91, Condition=Condition 1 (Left Ventricle) LV 76/4/5, (Aorta) Ao 76/52/64 02:52 AM Catheter selectively placed in left ventricle kkallner 02:52 AM pressures recorded [email or web address] 02:53 AM RCA angiography performed in multiple views. [email or web address] 02:53 AM Recorded Pressure: Ao, HR=87, Condition=Condition 1 (Aorta) Ao 74/59/67 02:53 AM HR=80 bpm, EXIF=363/66 mmhg, SpO2=93.0 %, Resp=22 B/min, Comment=sr 02:53 AM Catheter removed kkallner 02:54 AM 5Fr FL3.5 catheter inserted over the wire [id number] kkallner 02:54 AM wire removed kkallner 02:55 AM LCA angiography performed in multiple views. [email or web address] 02:56 AM Recorded Pressure: Ao, HR=94, Condition=Condition 1 (Aorta) Ao 77/59/68 02:58 AM Catheter removed kkallner 02:58 AM 5Fr Pigtail catheter inserted over the wire DN kkallner 02:58 AM HR=88 bpm, KVNI=436/66 mmhg, SpO2=92.0 %, Resp=18 B/min 02:58 AM wire removed kkallner 02:58 AM Catheter selectively placed in left ventricle kkallner 02:59 AM Pressure channel 3 zero failed. 02:59 AM Pressure channel 3 zero failed. 02:59 AM Pressure channel 3 zeroed. 02:59 AM Recorded Pressure: LV, HR=80, Condition=Condition 1 (Left Ventricle) LV 106/16/24 02:59 AM Bolus angiogram of left Ventricle complete: 8 ml/sec for a total of 16 mls kkallner 03:00 AM Recorded Pressure: LV, Ao, HR=83, Condition=Condition 1 (Left Ventricle) LV 91/39/46, (Aorta) Ao 99/42/80 03:01 AM catheter and wire removed kkallner 03:01 AM Coronary Dominance: right kkallner 03:04 AM Lesion found in 1st Diagonal. Pre Stenosis: 70 Pre HILARIA Flow: [email or web address] 03:04 AM Lesion found in Mid Circumflex. Pre Stenosis: 30 Pre HILARIA Flow: [email or web address] 03:04 AM Lesion found in 1st Marginal. Pre Stenosis: 20 Pre HILARIA Flow: [email or web address] 03:05 AM Lesion found in Proximal RCA. Pre Stenosis: 20 Pre HILARIA Flow: [email or web address] 03:05 AM Lesion found in Distal RCA. Pre Stenosis: 20 Pre HILARIA Flow: kkallner 03:06 AM Lesion found in Right PDA. Pre Stenosis: 20 Pre HILARIA Flow: kkallner 03:06 AM Left Main Coronary Artery with 0% stenosis kkallner 03:06 AM Proximal Left Anterior Descending Coronary Artery with 0% stenosis. If graft is supplying this territory, 0 % stenosis. [email or web address] 03:06 AM Mid/Distal Left Anterior Descending Coronary Artery and diagonal branches with 70% stenosis. If graft is supplying this area, 0 % stenosis kkallner 03:06 AM Circumflex, Obtuse Marginal, Left Posterior Descending, and Left Posterolateral Coronary Arteries with 30 % stenosis. If graft is supplying this area, 0 % stenosis kkallner 03:06 AM Right Coronary, Right Posterior Descending Arteries with Right Posterolateral and Acute Marginal branches with 20 % stenosis. If graft is supplying this area, 0 % stenosis kkallner 03:06 AM Ramus with 20% stenosis. If graft is supplying this area, 0 % stenosis kkallner 03:08 AM Procedure completed at 03:08 kkallner 03:09 AM Sign out completed: Radiation Dose 380.21 mGy Fluoro Time: 3.0 Isovue 370 - 200ml contrast 61 ml given by Jagdeep Marie MD. Complications: NoneCardiac Rehab Consult needed: NoConfirmed administered medications: Yes kkallner 03:09 AM Isovue 370 - 200ml,1 Bottle(s) used. kkallner 03:09 AM 10 ml air in Vasc Band. [email or web address] 03:09 AM Post ECG NSR kkallner 03:09 AM Post Blood Pressure 109/66 kkallner 03:09 AM 03:09 Post Pulses Rt Radial 1+ kkallner 03:10 AM Information taught Cardiac Cath and Vasc Band kkallner 03:10 AM Education needs Procedure, Plan of Care, and Responsibilities of Patient in Care [email or web address] 03:10 AM Learning barriers :None kkallner 03:10 AM Education Methods Verbal kkallner 03:10 AM Education evaluation Able to repeat information kkallner 03:10 AM Site status No bleeding/hematoma - Rt Wrist as reported by Dot Deshpande RT (R) at 03:10 kkallner 03:10 AM Plavix, Effient or Brilinta given No kkallner 03:10 AM Delay to floor No [email or web address] 03:10 AM Patient out of room: 03:10 kkallner 03:10 AM no family at this time kkallner 03:11 AM Complications: None kkallner 03:11 AM Fluoro Time: 3 kkallner 03:11 AM Isovue 370 - 200ml contrast 61 ml given by Jagdeep Marie MD. [email or web address] 03:11 AM Radiation Dose 380.21 mGy kkallner 03:19 AM Report given to Mary CRANDALL Pt taken [facility] Complications Complication None None Hemodynamics Pressures Site Systolic/A Wave Diastolic/V Wave Mean LV 78 4 5 LV 76 4 5 AO 76 52 64 AO 74 59 67 AO 77 59 68 LV 106 16 24 LV 91 39 46 AO 99 42 80 Post Procedure Information Blood Pressure: 109/66 mmHg Rhythm: NSR Post procedural instructions were given Site Checks Time Location Status Staff Sheath In? Note 03:10 AM Rt Wrist No bleeding/hematoma Amadeo Deshpande RT (R) Pulses Time Site Pre-Procedure Post-Procedure Note 3:09:00 AM Rt Radial 1+ Updated by Sylvia Isaac RT (R) on 10/14/2016 3:22:58 AM electronically signed on 10/14/2016 3:23:45 AM with status of Final
[2016-10-14] MEDS: Aspirin 81 MG TAB.CHEW PO SCH (09:23)
[2016-10-14] MEDS: Nicotine 21 MG PATCH.TD24 TD SCH (09:23)
--- NOTE | 2016-10-14 09:37 | Event Note ---
Date of Encounter: 10/14/16 Time of Encounter: 09:31 Mr. Suarez is a 61 year old male with past medical history of COPD, CHF, diabetes, hyperlipidemia, hypertension, recent AL with stent placement on . EF 30-35%. He presented to [facility] ED today due to shortness of breath. Patient denied any chest pain today but states that he was significantly short of breath and was unable to lay flat in bed. EMS was called. He was in mild to moderate respiratory distress when presenting to [facility] ED, and he was placed on BIPAP. Received DuoNeb in route. Labs show CBC within normal limits. BMP shows potassium 6.4, glucose 508. Troponin 4.41. BNP 709. ABG showed pH 7.31, CO2 61, O2 192, HCO3 30.3. Patient was given 10 units of insulin for hyperglycemia. Also given 40 mg of Lasix for possible CHF exacerbation. ED physician spoke with attending hospitalist who accepted the patient for transfer. Patient was taken to the Tv Technician by Dr. Marie. Evaluation of stent was normal. Patient did not require any additional stenting. Upon arrival to the ICU, the patient was on BiPAP, tolerating it well. He said that his breathing was significantly improved while on BiPAP. Pt was seen and examined at bedside in the ICU. He is alert, awake and O x3, did c/o shortness of breath this morning again so placed him back on BiPAP. Reviewed his ABG - showing acute on chronic hypercapniec respiratory failure. Gen: A, A, O x 3 Heart : S1 S2 + RRR, No murmurs Chest: diminished BS b/l, mild wheezing, fine rales + Ext : Edema + a/p 1. Acute systolic CHF exacerbation s/p LHC - patent stent Cont ASA, Plavix, BB and statin Cont diuresis with Lasix 20 IV q8hr 2. Acute on chronic hypercapneic respiratory failure mostly due to CHF exacrrbation No need of steroids cont BiPAP for next 24 hrs, take him off the BiPAP for eating f/u ABG this evening
--- NOTE | 2016-10-14 09:54 | Electrocardiograph Report ---
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
[2016-10-14] MEDS: Furosemide 20 MG/2 ML VIAL IVP SCH ×2 (10:26→15:37)
[2016-10-14] MEDS: Budesonide/Formoterol 80/4.5 MDI IH SCH ×2 (11:01→21:31)
[2016-10-14] MEDS: Insulin DETEMIR 100 UNIT/ML X5UNITS SQ SCH ×2 (11:54→21:08)
--- NOTE | 2016-10-14 14:08 | Cardiology Consult Note ---
Date of Encounter: 10/15/16 Time of Encounter: 14:00 Assessment and Plan (1) Acute exacerbation of CHF (congestive heart failure) Current Visit: Yes Status: Acute Acute on chronic systolic CHF. Continue diuresis with IV lasix. Qualifiers: Congestive heart failure type: unspecified congestive heart failure type Qualified Code(s): I50.9 - Heart failure, unspecified (2) CAD (coronary artery disease) Current Visit: Yes Status: Acute Repeat LHC - no obstructive CAD. Continue DAPT, BB, and statin. No recurrence in angina. Qualifiers: Coronary Disease-Associated Artery/Lesion type: [place] artery [place] vs. transplanted heart: [place] heart Associated angina: without angina Qualified Code(s): I25.10 - Atherosclerotic heart disease of [place] coronary artery without angina pectoris (3) Nicotine dependence Current Visit: No Status: Chronic Smoking cessation counseled Qualifiers: Nicotine product type: cigarettes Substance use status: uncomplicated Qualified Code(s): F17.210 - Nicotine dependence, cigarettes, uncomplicated Discussion w patient/family: The assessment and plan as outlined above was discussed with the patient and/or family members who expressed understanding and agreement. All questions were answered. Thank you for involving us in the care of your patient. Please call with any questions. History of Present Illness Consult date: 10/14/16 Consult reason: dyspnea; sp lhc History of present illness: Mr. Suarez is a 61 year old male with history of CAD sp STEMI sp PCI LAD MEMO x 2, systolic CHF EF 30-35%. He notes dyspnea and unable to obtain lasix refill. He denies chest/jaw/arm discomfort. He was found to have elevated troponin and because of concern for septal current of injury underwent urgent LHC this morning with findings of patent stent. His dyspnea has improved with oxygen supplementation and lasix. Past Med Surg Social Fam HX - Past Medical History Medical history: COPD, diabetes, hyperlipidemia, hypertension, myocardial infarction Psychiatric history: depression - Past Surgical History Surgical History: angioplasty/stent, other (Stent cardiac) - Social History Smoking Status: Current every day smoker Packs per day: 0.5 Smokeless Tobacco Status: No Alcohol use: none Drug use: marijuana - Family History Mother Living Status: Medications and Allergies Aspirin 81 mg PO DAILY #30 tab 10/02/16 [Rx] Clopidogrel [Plavix] 75 mg PO DAILY #30 tab 10/02/16 [Rx] Lisinopril [Zestril] 2.5 mg PO DAILY #30 tab 10/02/16 [Rx] Potassium Chloride 20 meq PO DAILY #30 tab 10/02/16 [Rx] Rosuvastatin [Crestor] 40 mg PO HS #30 tab 10/02/16 [Rx] Carvedilol 12.5 mg PO BID 10/14/16 [History] Furosemide [Lasix] 20 mg PO DAILY 10/14/16 [History] Losartan Potassium [Cozaar] 50 mg PO DAILY 10/14/16 [History] metFORMIN [Glucophage] 500 mg PO BID 10/14/16 [History] 3 Allergy/AdvReac Type Severity Reaction Status Date / Time codeine Allergy Itching, Verified 10/14/16 00:38 Rash All Systems Review: A 10-system review of systems was performed and is negative for pertinent findings except as documented above in the HPI. - Constitutional Constitutional: no chills, no fever(s) - EENT Eyes: no blurred vision, no loss of vision Nose, mouth and throat: no dysphagia, no epistaxis - Cardiovascular Cardiovascular: no palpitations, no syncope - Respiratory Respiratory: no hemoptysis, no wheezing - Gastrointestinal Gastrointestinal: no hematemesis, no hematochezia - Genitourinary Genitourinary: no hematuria, no nocturia - Musculoskeletal Musculoskeletal: no arthralgias, no myalgias - Integumentary Integumentary: no erythema, no rash - Neurological Neurological: no syncope, no tingling - Psychiatric Psychiatric: no hallucinations, no panic attacks - Hematological/Lymphatic Hematologic/Lymphatic: no easy bleeding, no easy bruising Physical Examination Vital Signs, Last 4 Hours Temp Pulse Resp BP Pulse Ox 10/14/16 12:00 82 24 156/102 94 10/14/16 11:46 97.7 F 10/14/16 11:00 82 22 127/76 90 General: Conversant HEENT: Atraumatic Neck: No JVD Cardiac: Reg Rate and Rhythm Lungs: Other (wheezes bl) Neuro: Alert and responsive Abdomen: Soft Skin: No rashes noted on visualized skin Musculoskeletal: No Chest Wall Tenderness Extremities: No Edema Results 10/15/16 06:36 10/15/16 06:36 - EKG Interpretation EKG results cardiology: personally reviewed (septal st elevation) Consult Discharge Plan - Plan Referrals: Jagdeep Rodriguez MD [Primary Care Provider] -
[2016-10-14 16:52] LABS: ABG HCO3 32.5 mEQ/L (21-27); ABG Oxygen Saturation 91 % (95-98); ABG PCO2 49 mmHg (35-45); ABG PH 7.43 pH Units (7.32-7.45); ABG PO2 59 mmHg (85-104)
[2016-10-14 16:53] LABS: Blood Gas FiO2 32 %
[2016-10-14] MEDS: *HR* Metformin 500 MG TABLET PO SCH (16:58)
[2016-10-14 17:42] LABS: BUN/Creatinine Ratio 20 (6-26); Blood Urea Nitrogen 17 mg/dL (8-26); Calcium 8.9 mg/dL (8.6-10.8); Carbon Dioxide 28 mEq/L (19-29); Chloride 99 mEq/L (98-109); Glucose 408 mg/dL (70-99); Magnesium 1.1 mg/dL (1.6-2.6); Osmolality,Calculated 303 (280-300); Potassium 4.4 mEq/L (3.5-4.5); Sodium 137 mEq/L (136-145); eGFR For African Americans > 60 (> 60); eGFR For Non-African Americans > 60 (> 60)
[2016-10-14] MEDS: Albuterol 2.5 MG/3 ML NEBULIZER IH PRN (21:31)
[2016-10-15] MEDS: Furosemide 20 MG/2 ML VIAL IVP SCH ×2 (01:18→07:41)
[2016-10-15] MEDS: Albuterol 2.5 MG/3 ML NEBULIZER IH PRN ×2 (02:50→09:41)
[2016-10-15] MEDS ORDERED: Magnesium Sulfate 2 GM in D5% in Water 100 ML IVPB ONE (06:29)
[2016-10-15] MEDS: *HR* Enoxaparin 40 MG/0.4 ML SYRINGE SQ SCH (06:32)
[2016-10-15 07:01] LABS: Basophils % 0.1 %; Eosinophils % 0.1 %; Hematocrit 39.4 % (37.5-50.1); Hemoglobin 12.4 g/dL (12.9-16.9); Immature Granulocytes % 0.4 % (0-4); Lymphocytes # 2.1 K/mcL (0.6-4.6); Lymphocytes % 14.8 %; Mean Corpuscular HGB Conc 31.5 g/dL (31.6-35.5); Mean Corpuscular Hemoglobin 28.4 pg (28.0-33.3); Mean Corpuscular Volume 90.4 fL (83.0-100.0); Mean Platelet Volume 11.5 fL (9.4-12.4); Monocytes # 0.8 K/mcL (0.0-1.3); Monocytes % 5.5 %; Neutrophils # 11.4 K/mcL (1.6-8.9); Platelet Count 271 K/mcL (140-400); Red Blood Count 4.36 M/mcL (4.19-5.50); Red Cell Distribution Width 12.7 % (11.5-14.5); Segmented Neutrophils % 79.1 %
[2016-10-15 07:15] LABS: BUN/Creatinine Ratio 27 (6-26); Blood Urea Nitrogen 21 mg/dL (8-26); Calcium 9.2 mg/dL (8.6-10.8); Carbon Dioxide 35 mEq/L (19-29); Chloride 100 mEq/L (98-109); Glucose 74 mg/dL (70-99); Osmolality,Calculated 298 (280-300); Phosphorous 4.2 mg/dL (2.3-4.7); Potassium 3.8 mEq/L (3.5-4.5); Sodium 143 mEq/L (136-145); eGFR For African Americans > 60 (> 60); eGFR For Non-African Americans > 60 (> 60)
[2016-10-15 07:26] LABS: INR 1.3; Prothrombin Time 13.7 Seconds (9.4-12.1)
[2016-10-15] MEDS: Insulin LISPRO 300 UNITS/3 ML VIAL SQ SCH (07:29)
[2016-10-15] MEDS: *HR* Metformin 500 MG TABLET PO SCH (07:40)
[2016-10-15] MEDS: Aspirin 81 MG TAB.CHEW PO SCH (07:41)
[2016-10-15] MEDS: Nicotine 21 MG PATCH.TD24 TD SCH (07:41)
--- NOTE | 2016-10-15 09:24 | Cardiology Progress Note ---
Date of Encounter: 10/15/16 Time of Encounter: 09:20 Assessment and Plan (1) Acute exacerbation of CHF (congestive heart failure) Current Visit: Yes Status: Acute Acute on chronic systolic CHF. Near euvolemia - start lasix po and plan for discharge today. Will need BMP or Friday. Sodium restriction advised. Qualifiers: Congestive heart failure type: unspecified congestive heart failure type Qualified Code(s): I50.9 - Heart failure, unspecified (2) CAD (coronary artery disease) Current Visit: Yes Status: Acute Repeat LHC - no obstructive CAD. Continue DAPT, BB, and statin. No recurrence in angina. Qualifiers: Coronary Disease-Associated Artery/Lesion type: [place] artery [place] vs. transplanted heart: [place] heart Associated angina: without angina Qualified Code(s): I25.10 - Atherosclerotic heart disease of [place] coronary artery without angina pectoris (3) Nicotine dependence Current Visit: No Status: Chronic Smoking cessation counseled Qualifiers: Nicotine product type: cigarettes Substance use status: uncomplicated Qualified Code(s): F17.210 - Nicotine dependence, cigarettes, uncomplicated Discussion w patient/family: The assessment and plan as outlined above was discussed with the patient and/or family members who expressed understanding and agreement. All questions were answered. Thank you for involving us in the care of your patient. Please call with any questions. Subjective Principal diagnosis: CHF Interval history: Feels well overnight after diuresis with improvement in edema and dyspnea. Objective Vital Signs, Last 4 Hours Temp Pulse Resp BP Pulse Ox 10/15/16 08:00 73 20 124/75 90 10/15/16 07:32 97.5 F L 10/15/16 07:21 73 20 107/71 94 10/15/16 06:00 81 16 87/67 92 General: Conversant HEENT: Atraumatic Neck: No JVD Cardiac: Reg Rate and Rhythm Lungs: Other (wheezes) Neuro: Alert and responsive Abdomen: Soft Skin: No rashes noted on visualized skin Musculoskeletal: No Chest Wall Tenderness Extremities: Normal Pulses Results 10/15/16 06:36 10/15/16 06:36 Lab Results 10/14/16 10/15/16 10/15/16 17:21 06:36 06:36 WBC 14.4 H Hgb 12.4 L Hct 39.4 Plt Count 271 INR 1.3 Sodium 137 Potassium 4.4 D Chloride 99 Carbon Dioxide 28 BUN 17 Creatinine 0.85 Glucose 408 H Calcium 8.9 Magnesium 1.1 L 10/15/16 06:36 WBC Hgb Hct Plt Count INR Sodium 143 Potassium 3.8 Chloride 100 Carbon Dioxide 35 H BUN 21 Creatinine 0.78 Glucose 74 Calcium 9.2 Magnesium 1.0 L Consult Discharge Plan - Plan Referrals: Jagdeep Rodriguez MD [Primary Care Provider] -
[2016-10-15] MEDS: Insulin DETEMIR 100 UNIT/ML X5UNITS SQ SCH (09:27)
[2016-10-15] MEDS: Budesonide/Formoterol 80/4.5 MDI IH SCH (09:41)
--- NOTE | 2016-10-15 10:16 | Discharge Summary ---
Date of Encounter: 10/15/16 Time of Encounter: 10:15 - Discharge Diagnosis (1) Acute exacerbation of CHF (congestive heart failure) Priority: Primary Status: Acute Qualifiers: Congestive heart failure type: combined Qualified Code(s): I50.43 - Acute on chronic combined systolic (congestive) and diastolic (congestive) heart failure (2) CAD (coronary artery disease) Priority: Secondary Status: Acute Qualifiers: Coronary Disease-Associated Artery/Lesion type: [place] artery [place] vs. transplanted heart: [place] heart Associated angina: without angina Qualified Code(s): I25.10 - Atherosclerotic heart disease of [place] coronary artery without angina pectoris (3) COPD (chronic obstructive pulmonary disease) Priority: Secondary Status: Acute Qualifiers: COPD type: chronic bronchitis Chronic bronchitis type: simple Qualified Code(s): J41.0 - Simple chronic bronchitis (4) Diabetes Priority: Secondary Status: Chronic Qualifiers: Diabetes mellitus type: type 2 Diabetes mellitus complication status: with hyperglycemia Diabetes mellitus halfway insulin use: with halfway use Qualified Code(s): E11.65 - Type 2 diabetes mellitus with hyperglycemia; Z79.4 - watermaster (current) use of insulin (5) DVT prophylaxis Priority: Secondary Status: Acute (6) Elevated troponin Priority: Secondary Status: Acute (7) Hyperkalemia Priority: Secondary Status: Acute (8) Nicotine dependence Priority: Secondary Status: Chronic Qualifiers: Nicotine product type: cigarettes Substance use status: uncomplicated Qualified Code(s): F17.210 - Nicotine dependence, cigarettes, uncomplicated - Discharge Medications Prescriptions: Budesonide/Formoterol 80/4.5 [Symbicort 80/4.5] 2 puff IH BIDR #1 inh Furosemide [Lasix] 20 mg PO DAILY #30 Magnesium Oxide [Mag-Ox] 400 mg PO DAILY #30 tab Potassium Chloride [Klor-Con Sprinkle] 10 meq PO DAILY #30 capsule.er Home Medications: Aspirin 81 mg PO DAILY #30 tab 10/02/16 [Rx] Clopidogrel [Plavix] 75 mg PO DAILY #30 tab 10/02/16 [Rx] Lisinopril [Zestril] 2.5 mg PO DAILY #30 tab 10/02/16 [Rx] Rosuvastatin [Crestor] 40 mg PO HS #30 tab 10/02/16 [Rx] Carvedilol 12.5 mg PO BID 10/14/16 [History] metFORMIN [Glucophage] 500 mg PO BID 10/14/16 [History] Budesonide/Formoterol 80/4.5 [Symbicort 80/4.5] 2 puff IH BIDR #1 inh 10/15/16 [Rx] Furosemide [Lasix] 20 mg PO DAILY #30 10/15/16 [Rx] Magnesium Oxide [Mag-Ox] 400 mg PO DAILY #30 tab 10/15/16 [Rx] Potassium Chloride [Klor-Con Sprinkle] 10 meq PO DAILY #30 capsule.er 10/15/16 [ Rx] Allergies/Adverse Reactions: 3 Allergy/AdvReac Type Severity Reaction Status Date / Time codeine Allergy Itching, Verified 10/14/16 00:38 Rash Procedures/tests Complete & Pending: Procedures Performed prior 72 hours Category Date Time Status CL Cardiac Catheterization [CL] Stat Faith Doctor 10/14/16 01:33 Ordered ECG 12 lead ECG [ECG] AM 0600 Y 10/14/16 06:00 Completed Date of admission: 10/14/16 03:48 Primary care physician: Jagdeep Rodriguez MD Consults: 10/14/16 04:10 Consult to Cardiology [CONS] Routine Comment: Consulting Provider: Cardiology Deanna Reason for Consult: recent ME with stent placement 2 weeks ago. Presented with dyspnea, elevated troponin. LHC performed by Dr. Marie Call Completed: Yes 10/15/16 10:10 Consult to Nut Grader [CONS] Routine Reason for SW Consult: Evaluate for Home needs Discharging clinician: Jamal Chavez Anticipated date of discharge: 10/15/16 - Patient Status Disposition: Home, Self-Care Condition: Good Functional capacity at discharge: independent ambulation Overall status at discharge: patient is progressing back to baseline - Discharge Instructions Instructions: Heart Failure (DC), Chronic Obstructive Pulmonary Disease (DC) Follow Up With: Doug Valerio MD [Partnered Physician] - (in 1-2 weeks) Jagdeep Rodriguez MD [Primary Care Provider] - 10/30/16 8:00 am (in 1 week - Spoke with office, soonest they can get patient in is Oct 30 @0800.) - Diet and Activity Activity: increase activity as tolerated Diet: low fat, low cholesterol, low salt diet Hospital course: Mr. Suarez is a 61 year old male patient with history of COPD, coronary artery disease, congestive heart failure who was admitted here with acute congestive heart failure. He had recently undergone PCI with stent placement on 10/01/16 for ME. He was found to have anemia for 30-35% at that time. He had been discharged home on Lasix but had difficulty in obtaining Lasix as prescribed after his initial medications ran out. He began to develop increasing swelling in his lower extremities along with worsening shortness of breath. On arrival to the ER, he she was given IV Lasix and his troponins were checked. His troponin were 4.41 with a BNP of 709. Cardiology was immediately consulted. Patient was taken for left heart catheterization and was found to have patent stents in left anterior descending artery. Patient was therefore treated for acute congestive heart failure with intravenous Lasix. He also has a history of COPD and was treated for that with when necessary bronchodilators and steroid inhalers. Patient had required BiPAP initially but has now been transitioned down to nasal cannula. He has been cleared for discharge by cardiology. He was evaluated for home oxygen and was found to have sats of 84% on room air. As such he will be prescribed home oxygen at 2 L nasal cannula. He will be discharged home on Lasix and will follow up with his glue maker bone within 1 week. He also had hyperkalemia on initial presentation likely due to the use of supplemental potassium while taking lisinopril without taking Lasix. As such I am decreasing his supplemental potassium dose and advising him to take it only when he takes the Lasix. - Time Spent with Patient Total time spent providing and/or coordinating discharge services: Greater than 30 minutes (35 min) - Constitutional Vitals: Temp Pulse Resp BP Pulse Ox 97.5 F L 71 16 102/72 90 10/15/16 07:32 10/15/16 09:00 10/15/16 09:41 10/15/16 09:00 10/15/16 09:41 General appearance: Present: A&O X 3, no acute distress, answers questions appropriately - Neck Neck exam general surgery: Present: supple, trachea midline. Absent: lymphadenopathy - Respiratory Respiratory exam: Present: prolonged expiratory phase, wheezes (end expiratory) . Absent: accessory muscle use, rales, rhonchi - Cardiovascular Cardiovascular exam: Present: RRR, +S1, +S2. Absent: diastolic murmur, gallop, rubs, systolic murmur - GI/Abdominal GI/Abdominal exam: Present: normal bowel sounds, soft, no peritoneal signs. Absent: distended, tenderness - Extremities Exam Extremities exam: Present: warm, radial pulses palpable and symmetrical. Absent : calf tenderness, cyanotic, pedal edema - Neurological Exam Neurological exam: Present: alert, oriented X3, no focal deficits. Absent: facial droop, speech deficit
[2016-10-15 10:49] VITALS: BP 106/68
[2016-10-15 12:39] LABS: Bilirubin,Urine Negative (Negative); Blood,Urine Negative (Negative); Clarity,Urine Clear (Clear); Color,Urine Yellow (Yellow); Glucose,Urine (UA) Normal (Normal); Ketones,Urine Negative (Negative); Leukocyte Esterase,Urine Negative (Negative); Nitrite,Urine Negative (Negative); PH,Urine 5.5 pH Units (5.0-8.0); Protein,Urine 100 mg/dL (Neg-Trace); Specific Gravity,Urine 1.022 (1.010-1.025)
[2016-10-15 12:40] LABS: Bacteria,Urine None Seen per hpf (None-Few); Hyaline Casts,Urine None Seen per lpf (None-Few); Squamous Epithelial Cell,Urine Many per lpf (None-Few); WBC,Urine 0-3 per hpf (0-3)
[2016-10-16] MEDS ORDERED: Furosemide 20 MG TABLET PO SCH (09:00)
[2016-10-16] MEDS ORDERED: Magnesium Oxide 400 MG TABLET PO SCH (09:00)
== END 2016-10-15 12:52 | disposition home or self-care (01) | DRG 286 ==
LOC: SUATTDRO 03:48 → ICNU 03:48
PROVIDERS: ADMIT Internal Medicine Cardiovascular Disease; ATTEND Internal Medicine

== ENCOUNTER 2016-10-23 02:43 | Inpatient (IN) ==
[2016-10-23] MEDS ORDERED: Naloxone 0.4 MG/ML INJ IVP PRN (06:23)
[2016-10-23] MEDS ORDERED: *HR* Morphine 2 MG/ML SYRINGE IVP PRN (06:23)
[2016-10-23] MEDS ORDERED: Ondansetron 4 MG/2 ML VIAL IVP PRN (06:23)
[2016-10-23] MEDS ORDERED: Acetaminophen 325 MG TABLET PO PRN (06:23)
[2016-10-23] MEDS ORDERED: Dextrose Gel 15 GM PO PRN ×2 (06:32)
[2016-10-23] MEDS ORDERED: *HR* Dextrose 50 % in Water (Syg) 50 ML SYRINGE IVP PRN (06:32)
[2016-10-23] MEDS ORDERED: D5% in Water 1,000 ML IVC PRN (06:32)
[2016-10-23 07:36] LABS: Basophils % 0.4 %; Eosinophils # 0.1 K/mcL (0.0-0.6); Eosinophils % 1.1 %; Hematocrit 36.1 % (37.5-50.1); Hemoglobin 11.3 g/dL (12.9-16.9); Immature Granulocytes % 0.2 % (0-4); Lymphocytes # 1.7 K/mcL (0.6-4.6); Mean Corpuscular HGB Conc 31.3 g/dL (31.6-35.5); Mean Corpuscular Hemoglobin 28.3 pg (28.0-33.3); Mean Corpuscular Volume 90.5 fL (83.0-100.0); Mean Platelet Volume 11.7 fL (9.4-12.4); Monocytes # 0.7 K/mcL (0.0-1.3); Monocytes % 8.6 %; Neutrophils # 5.8 K/mcL (1.6-8.9); Platelet Count 214 K/mcL (140-400); Red Blood Count 3.99 M/mcL (4.19-5.50); Red Cell Distribution Width 13.2 % (11.5-14.5); Segmented Neutrophils % 69.7 %
[2016-10-23 07:38] LABS: INR 1.3; Prothrombin Time 14.1 Seconds (9.4-12.1)
[2016-10-23 07:50] LABS: BUN/Creatinine Ratio 29 (6-26); Blood Urea Nitrogen 23 mg/dL (8-26); Calcium 9.1 mg/dL (8.6-10.8); Carbon Dioxide 33 mEq/L (19-29); Chloride 102 mEq/L (98-109); Chol/HDL Ratio 3.6 (0-4.9); Cholesterol 122 mg/dL (< 200); Glucose 208 mg/dL (70-99); HDL Cholesterol 34 mg/dL (40-59); LDL Cholesterol,Calculated 75 mg/dL (0-99); Magnesium 1.2 mg/dL (1.6-2.6); Osmolality,Calculated 300 (280-300); Potassium 3.7 mEq/L (3.5-4.5); Sodium 140 mEq/L (136-145); Triglycerides 66 mg/dL (< 150); eGFR For African Americans > 60 (> 60); eGFR For Non-African Americans > 60 (> 60)
[2016-10-23] MEDS: Ipratropium/Albuterol Neb 3 ML IH SCH ×5 (08:00→23:27)
[2016-10-23] MEDS: Aspirin 81 MG TAB.CHEW PO SCH (08:27)
[2016-10-23] MEDS: Magnesium Oxide 400 MG TABLET PO SCH (08:28)
[2016-10-23] MEDS: Insulin LISPRO 300 UNITS/3 ML VIAL SQ SCH ×3 (08:29→16:33)
[2016-10-23] MEDS: Furosemide 40 MG/4 ML VIAL IVP SCH ×2 (08:29→16:41)
[2016-10-23] MEDS ORDERED: Magnesium Sulfate 2 GM in D5% in Water 100 ML IVPB ONE (08:43)
[2016-10-23] MEDS ORDERED: Furosemide 20 MG TABLET PO SCH (09:00)
[2016-10-23] MEDS ORDERED: Tiotropium 18 MCG inhalation IH SCH (09:00)
[2016-10-23] MEDS: Azithromycin 250 MG in D5% in Water 250 ML IVPB SCH (09:45)
--- NOTE | 2016-10-23 09:47 | Internal Med History&Physical ---
Date of Encounter: 10/23/16 Time of Encounter: 09:00 Assessment and Plan (1) Acute exacerbation of CHF (congestive heart failure) Current visit: Yes Status: Acute Patient presents with dyspnea, orthopnea, hypoxemia, pedal edema and elevated BNP. Recent echocardiogram from September 2016 shows severely decreased EF around 35%, mild left ventricle and diastolic dysfunction. Start IV Lasix and add oral metolazone. Strict fluid restriction to 1.2 L per day, urine output and daily weight monitoring. Continue beta carmela and SHAWN inhibitor. Patient is also noted to have mild elevation in troponin up to 0.78, which is likely demand ischemia due to underlying acute CHF and COPD/hypoxemia. Continue telemetry monitoring and trend troponins. Will consult cardiology for further recommendations. Patient may benefit from home health services at discharge. Qualifiers: Congestive heart failure type: combined Qualified Code(s): I50.43 - Acute on chronic combined systolic (congestive) and diastolic (congestive) heart failure (2) Acute exacerbation of chronic obstructive pulmonary disease (COPD) Current visit: Yes Status: Acute Patient is noted to have diffuse wheezing, dyspnea and hypoxia. Start scheduled bronchodilators along with supplemental oxygen as needed. Wean down FiO2 as tolerated. Start IV steroids. BiPAP support as needed. (3) Essential hypertension Current visit: Yes Status: Chronic Blood pressure noted to be well controlled. Resume home medications. (4) Hyperlipidemia Current visit: Yes Status: Chronic Qualifiers: Hyperlipidemia type: unspecified Qualified Code(s): E78.5 - Hyperlipidemia , unspecified (5) Depression Current visit: Yes Status: Chronic Qualifiers: Depression Type: unspecified Qualified Code(s): F32.9 - Major depressive disorder, single episode, unspecified (6) Ischemic cardiomyopathy Current visit: Yes Status: Chronic Continue aspirin, Plavix, beta carmela and statin. (7) Diabetes Current visit: Yes Status: Chronic Start Accu-Chek blood glucose monitoring with nasal bolus insulin regimen. Blood sugars noted to be slightly elevated. Diabetic diet. Qualifiers: Diabetes mellitus type: type 2 Diabetes mellitus complication status: with hyperglycemia Diabetes mellitus snf insulin use: with intermediate accountant use Qualified Code(s): E11.65 - Type 2 diabetes mellitus with hyperglycemia; Z79.4 - FDC (current) use of insulin (8) CAD (coronary artery disease) Current visit: Yes Status: Chronic Qualifiers: Coronary Disease-Associated Artery/Lesion type: [place] artery [place] vs. transplanted heart: [place] heart Associated angina: without angina Qualified Code(s): I25.10 - Atherosclerotic heart disease of [place] coronary artery without angina pectoris (9) Chronic respiratory failure with hypoxia Current visit: Yes Status: Chronic Secondary to CHF and COPD. Patient is noted to be on home oxygen via nasal cannula. Internal Medicine - H&P: HPI Chief complaint: Shortness of breath Admitted From: Emergency Dept Plans for Post Hospital Care: Transfer Detention Facility History of present illness: Mr. Suarez is a 61 year old male with history of CHF, COPD presents to the emergency room with complaints of shortness of breath and orthopnea. Patient was recently discharged from our hospital about a week ago after being treated for acute exacerbation of CHF. He reports feeling well at the time of discharge , however began to experience significant shortness of breath, inability to take deep breaths associated with orthopnea, worsening leg swelling, all of which have been going on for the last few days. He reports being compliant with his Lasix, which he takes once a day along with potassium supplements. He also reports being compliant to fluid restriction, however he believes he is restricted to around 1.9 L per day. Past Med Surg Social Fam HX - Past Medical History Medical history: CHF, COPD, coronary artery disease, diabetes, hyperlipidemia, hypertension, myocardial infarction Psychiatric history: depression - Past Surgical History Surgical History: angioplasty/stent, orthopedic, other (Left ankle surgery), other - Social History Smoking Status: Current every day smoker Packs per day: 1 Smokeless Tobacco Status: No Alcohol use: none Drug use: marijuana Occupational status: retired Current living situation: Home - Independent Activity Level: Independent ambulation Recent Out of Country Travel Within the Last 8 Weeks: No Exposure or Possible Exposure to Illness During Travel: No - Family History Mother Living Status: Internal Medicine - H&P: Meds Aspirin 81 mg PO DAILY #30 tab 10/02/16 [Rx] Clopidogrel [Plavix] 75 mg PO DAILY #30 tab 10/02/16 [Rx] Carvedilol 12.5 mg PO BID 10/14/16 [History] Furosemide [Lasix] 20 mg PO DAILY #30 10/15/16 [Rx] Magnesium Oxide [Mag-Ox] 400 mg PO DAILY #30 tab 10/15/16 [Rx] Albuterol Sulfate [Proair Hfa] 2 puff IH Q2H PRN 10/22/16 [History] Albuterol Sulfate [Ventolin Hfa] 18 gm IH DAILY 10/22/16 [History] Atorvastatin Calcium [Lipitor] 80 mg PO DAILY 10/22/16 [History] Budesonide/Formoterol 160/4.5 [Symbicort 160/4.5] 1 puff IH BIDR 10/22/16 [ History] Lisinopril [Zestril] 2.5 mg PO DAILY 10/22/16 [History] Losartan Potassium [Cozaar] 50 mg PO DAILY 10/22/16 [History] Metformin HCl [Glucophage] 1,000 mg PO BID 10/22/16 [History] Potassium Chloride [Klor-Con Sprinkle] 20 meq PO DAILY 10/22/16 [History] Sulindac 150 mg PO BID PRN 10/22/16 [History] Tiotropium [Spiriva] 18 mcg IH DAILY 10/22/16 [History] 3 Allergy/AdvReac Type Severity Reaction Status Date / Time codeine Allergy Itching, Verified 10/22/16 23:49 Rash All Systems PM: A 10-system review of systems was performed and is negative for pertinent findings except as documented above in the HPI. - Constitutional Constitutional: no chills, no fever(s), no night sweats - EENT Eyes: no change in vision, no discharge, no pain, no photophobia Ears: no ear discharge, no ear pain, no tinnitus Nose, mouth and throat: no dysphagia, no nasal discharge, no neck pain, no sore throat - Cardiovascular Cardiovascular ROS IM: chest pain, dyspnea, dyspnea on exertion, edema, no diaphoresis, no lightheadedness, no palpitations, no syncope - Respiratory Respiratory: no cough, no dyspnea, no wheezing, no excessive phlegm production - Gastrointestinal Gastrointestinal: no abdominal pain, no diarrhea, no hematemesis, no hematochezia, no melena, no nausea, no vomiting - Musculoskeletal Musculoskeletal ROS IM: no numbness, no tingling - Integumentary Integumentary IM: no rash, no unusual bruising - Neurological Neurological ROS: no confusion, no convulsions, no focal weakness, no numbness, no tingling, no tremor(s) - Hematologic/Lymphatic Hematologic/Lymphatic: no easy bruising - Constitutional Vitals: Temp Pulse Resp BP Pulse Ox 97.6 F 69 19 111/72 98 10/23/16 07:31 10/23/16 07:31 10/23/16 08:00 10/23/16 07:31 10/23/16 08:00 General appearance: Present: A&O X 3, answers questions appropriately - Respiratory Respiratory exam: Present: rales (Bibasal crackles), rhonchi, wheezes (Diffuse bilateral wheezing and rhonchi). Absent: accessory muscle use - Cardiovascular Cardiovascular exam: Present: RRR, +S1, +S2. Absent: diastolic murmur, gallop, rubs, systolic murmur - GI/Abdominal GI/Abdominal exam: Present: normal bowel sounds, soft, no peritoneal signs. Absent: distended, tenderness - Extremities Exam Extremities exam: Present: full ROM, pedal edema (2+ pitting pedal edema bilaterally up to knees), warm, radial pulses palpable and symmetrical. Absent : calf tenderness, cyanotic - Neurological Exam Neurological exam: Present: CN II-XII intact, oriented X3, no focal deficits. Absent: pronater drift, facial droop, speech deficit - Skin Skin exam: Present: dry, intact Internal Med - H&P Results - Labs CBC & Chem 7: 10/23/16 07:20 10/23/16 07:20 Labs: Short CBC 10/23/16 Range/Units 07:20 WBC 8.3 (4.3-11.1) K/mcL Hgb 11.3 L D (12.9-16.9) g/dL Hct 36.1 L (37.5-50.1) % Plt Count 214 (140-400) K/mcL Neutrophils # 5.8 (1.6-8.9) K/mcL BMP 10/23/16 07:20 Sodium 140 Potassium 3.7 Chloride 102 Carbon Dioxide 33 H BUN 23 Creatinine 0.80 Glucose 208 H Calcium 9.1 Cardiac Enzymes 10/23/16 Range/Units 07:20 Troponin I 0.73 H* (0-0.03) ng/mL - EKG Data -: EKG Interpreted by Myself EKG shows normal: sinus rhythm, ST-T waves (Q waves in anterior leads, T-wave inversions in lateral leads-old changes due to recent [place]) Rate: normal
[2016-10-23] MEDS: Budesonide/Formoterol 160/4.5 MDI IH SCH ×2 (10:09→20:04)
[2016-10-23 10:24] LABS: Bilirubin,Urine Negative (Negative); Blood,Urine Small (Negative); Clarity,Urine Cloudy (Clear); Color,Urine Yellow (Yellow); Glucose,Urine (UA) Normal (Normal); Ketones,Urine Negative (Negative); Leukocyte Esterase,Urine Negative (Negative); Nitrite,Urine Negative (Negative); Protein,Urine 30 mg/dL (Neg-Trace); Specific Gravity,Urine 1.015 (1.010-1.025); Urobilinogen,Urine Normal (Normal)
[2016-10-23 10:28] LABS: Hyaline Casts,Urine None Seen per lpf (None-Few); Squamous Epithelial Cell,Urine Moderate per lpf (None-Few); WBC,Urine 0-3 per hpf (0-3)
[2016-10-23 10:31] LABS: Bacteria,Urine Few per hpf (None-Few); RBC,Urine 0-3 per hpf (0-3)
[2016-10-23 10:32] LABS: Amorphous Sediment,Urine Few (Few)
[2016-10-23] MEDS: Nicotine 14 MG PATCH.TD24 TD SCH (10:32)
--- NOTE | 2016-10-23 11:15 | Cardiology Consult Note ---
Date of Encounter: 10/23/16 Time of Encounter: 11:14 Assessment and Plan (1) Acute exacerbation of CHF (congestive heart failure) Current Visit: Yes Status: Acute Known EF 35%, s/p recent STEMI and PCI x 2 to LAD on 09/30/16 and PTCA to diag. Repeat [facility] 10/14/16 showed widely patent stents. Presented to ED with worsening dyspnea. BNP 841. CXR shows bibasilar atelectasis vs PNA. Pt currently on BiPAP, sleeping, only mumbling in response to questions. 2+ BLE edema. Agree with IV Lasix 40mg BID and Metolazone PO 5mg daily. Monitor renal function --currently normal. Recommend strict I/Os, daily weights, Na and fluid restriction. Recommend close outpt follow-up which is already scheduled. Qualifiers: Congestive heart failure type: systolic Qualified Code(s): I50.23 - Acute on chronic systolic (congestive) heart failure (2) Ischemic cardiomyopathy Current Visit: Yes Status: Chronic Known EF of 35% s/p STEMI and PCI x 2 09/30/16 and PTCA to diag. Repeat [facility] 10/14 showed widely patent stents. Continue BB and ARB. CHF exacerbation as above, diuresing. Recheck echo as outpt after 30 days s/p revascularization. (3) Elevated troponin Current Visit: No Status: Acute Troponin 0.78, 0.73 downtrending from 10/14/16 when troponin was 4.41 10/14. Do not suspect ACS currently--only downtrending from recent event. [facility] 10/14 showed widely patent LAD stents. EF known 35%. ASA, Plavix, Statin, BB, ARB. (4) CAD (coronary artery disease) Current Visit: Yes Status: Chronic S/P STEMI 09/30/16, s/p PCI x 2 to LAD and PTCA to diag. Repeat [facility] 10/14 widely patent stents. DAPT (ASA and Plavix) uninterrupted x 1 year. Continue BB, Statin, ARB. Qualifiers: Coronary Disease-Associated Artery/Lesion type: [place] artery [place] vs. transplanted heart: [place] heart Associated angina: without angina Qualified Code(s): I25.10 - Atherosclerotic heart disease of [place] coronary artery without angina pectoris Discussion w patient/family: The assessment and plan as outlined above was discussed with the patient and/or family members who expressed understanding and agreement. All questions were answered. Thank you for involving us in the care of your patient. Please call with any questions. I will discuss all the above with Dr. Ash and make changes as necessary. History of Present Illness Consult date: 10/23/16 Requesting physician: Sonam Browning Consult reason: CHF, elevated troponin Chief complaint: Dyspnea History of present illness: Mr. Suarez is a 61 year old male history of CAD s/p STEMI 09/2016 sp PCI LAD MEMO x 2, systolic CHF EF 35%, ICMP, DM, HTN, HLD, COPD, tobacco abuse. He presented with worsening dyspnea. He is currently on BiPAP, sleeping, only mumbling in response to questions, so unable to obtain details of HPI. Per hospitalist H&P, pt reported significant shortness of breath, inability to take deep breaths associated with orthopnea, worsening lower extremity edema, all of which have been going on for the last few days. He reported being compliant with his Lasix, which he takes once a day along with potassium supplements. He also reports being compliant to fluid restriction, however he believes he is restricted to around 1.9 L per day. Troponins 0.78, 0.73. Troponin was 4.41 . CXR showed bibasilar atelectasis vs PNA. BNP 841. Prior CV testing: [facility] 10/14/16: Widely patent LAD stents, EF 35%. Echo 10/01/16: Impressions: LVEF 35%. Moderate LV systolic dysfunction with regional variations. Mild concentric left ventricular hypertrophy. Mild left ventricular diastolic dysfunction. Normal right ventricular structure and function. Mild mitral regurgitation. Unable to estimate RVSP due to suboptimal TR signal. Mild elevation of RA pressures. IVC is dilated. [facility] 09/30/16: Impressions: There is severe one vessel coronary artery disease. The left ventricle has abnormal contractility EF 25% Patient had successful PTCA/Drug-Eluting Stent placement in the mid LAD. Patient had successful PTCA in the [place]. Past Med Surg Social Fam HX - Past Medical History Medical history: cardiomyopathy, CHF, COPD, coronary artery disease, diabetes, hyperlipidemia, hypertension, myocardial infarction Psychiatric history: depression - Past Surgical History Surgical History: angioplasty/stent, orthopedic, other (Left ankle surgery), other - Social History Smoking Status: Current every day smoker Packs per day: 1 Smokeless Tobacco Status: No Alcohol use: none Drug use: marijuana - Family History Mother Living Status: Medications and Allergies Aspirin 81 mg PO DAILY #30 tab 10/02/16 [Rx] Clopidogrel [Plavix] 75 mg PO DAILY #30 tab 10/02/16 [Rx] Carvedilol 12.5 mg PO BID 10/14/16 [History] Furosemide [Lasix] 20 mg PO DAILY #30 10/15/16 [Rx] Magnesium Oxide [Mag-Ox] 400 mg PO DAILY #30 tab 10/15/16 [Rx] Albuterol Sulfate [Proair Hfa] 2 puff IH Q2H PRN 10/22/16 [History] Albuterol Sulfate [Ventolin Hfa] 18 gm IH DAILY 10/22/16 [History] Atorvastatin Calcium [Lipitor] 80 mg PO DAILY 10/22/16 [History] Budesonide/Formoterol 160/4.5 [Symbicort 160/4.5] 1 puff IH BIDR 10/22/16 [ History] Lisinopril [Zestril] 2.5 mg PO DAILY 10/22/16 [History] Losartan Potassium [Cozaar] 50 mg PO DAILY 10/22/16 [History] Metformin HCl [Glucophage] 1,000 mg PO BID 10/22/16 [History] Potassium Chloride [Klor-Con Sprinkle] 20 meq PO DAILY 10/22/16 [History] Sulindac 150 mg PO BID PRN 10/22/16 [History] Tiotropium [Spiriva] 18 mcg IH DAILY 10/22/16 [History] 3 Allergy/AdvReac Type Severity Reaction Status Date / Time codeine Allergy Itching, Verified 10/22/16 23:49 Rash ROS unobtainable: other (Sleeping, on BiPAP) All Systems Review: A 10-system review of systems was performed and is negative for pertinent findings except as documented above in the HPI. Physical Examination Vital Signs, Last 4 Hours Temp Pulse Resp BP Pulse Ox 10/23/16 10:11 22 90 10/23/16 08:00 19 98 10/23/16 07:31 97.6 F 69 20 111/72 98 Vital Signs Temp Pulse Resp BP Pulse Ox 10/23/16 10:11 22 90 10/23/16 08:00 19 98 10/23/16 07:31 97.6 F 69 20 111/72 98 10/23/16 04:59 97.4 F L 73 20 107/72 99 10/23/16 04:30 20 97 Intake and Output 10/22/16 10/23/16 10/23/16 23:59 07:59 15:59 Output Total 300 / 300 Balance -300 / -300 Output: Urine 300 / 300 Other: Meal Breakfast Percent of Meal Consumed 40% Weight 102.6 kg Blood Glucose* 199 Patient Weight 10/23/16 23:59 Weight 102.6 kg General: Other (on BiPAP, mumbling in response to questions) HEENT: Atraumatic, Normocephaly, Mucus Membranes Moist Neck: Normal carotid pulses Cardiac: Reg Rate and Rhythm, Normal S1 and S2, No Murmur Lungs: Other (diminished, mild rales in bases) Neuro: Other (sleeping, on BiPAP) Abdomen: Soft, Non-Tender Skin: No rashes noted on visualized skin Musculoskeletal: No Chest Wall Tenderness Extremities: Other (2+ BLE edema) Results 10/23/16 07:20 10/23/16 07:20 Lab Results 10/23/16 10/23/16 10/23/16 07:20 07:20 07:20 WBC 8.3 Hgb 11.3 L D Hct 36.1 L Plt Count 214 INR 1.3 Sodium 140 Potassium 3.7 Chloride 102 Carbon Dioxide 33 H BUN 23 Creatinine 0.80 Glucose 208 H Calcium 9.1 Magnesium 1.2 L Troponin I 10/23/16 07:20 WBC Hgb Hct Plt Count INR Sodium Potassium Chloride Carbon Dioxide BUN Creatinine Glucose Calcium Magnesium Troponin I 0.73 H* Active Medications Acetaminophen (Tylenol) 650 mg PO Q6HR PRN PRN Reason: Mild Pain (1-3) Stop: 04/24/17 06:24 Albuterol Sulfate (Albuterol Inhaler) 2 puff IH Q2H PRN PRN Reason: Shortness Of Breath Stop: 04/24/17 06:29 Albuterol/Ipratropium (Duoneb) 3 ml IH [id number] ALONSO Stop: 04/24/17 08:01 Last Admin: 10/23/16 08:00 Dose: 3 ml Aspirin (Aspirin) 81 mg PO DAILY [facility] Stop: 04/24/17 09:01 Last Admin: 10/23/16 08:27 Dose: 81 mg Atorvastatin Calcium (Lipitor) 80 mg PO DAILY [facility] Stop: 04/24/17 09:01 Last Admin: 10/23/16 08:27 Dose: 80 mg Budesonide/Formoterol Fumarate (Symbicort) 1 puff IH BIDR ALONSO PRN Reason: Protocol Stop: 04/24/17 10:01 Last Admin: 10/23/16 10:09 Dose: 1 puff Carvedilol (Coreg) 12.5 mg PO BID [facility] Stop: 04/24/17 09:01 Last Admin: 10/23/16 08:28 Dose: 12.5 mg Clopidogrel Bisulfate (Plavix) 75 mg PO DAILY [facility] Stop: 04/24/17 09:01 Last Admin: 10/23/16 08:27 Dose: 75 mg Dextrose/Water (Dextrose 50% (Syg)) 25 ml IVP AD PRN PRN Reason: Hypoglycemia Stop: 04/24/17 06:33 Famotidine (Pepcid) 20 mg IVP Q12HR [facility] Stop: 04/24/17 18:01 Furosemide (Lasix) 40 mg IVP BIDDIURETIC [facility] Stop: 04/24/17 08:01 Last Admin: 10/23/16 08:29 Dose: 40 mg Glucagon (Glucagen) 1 mg IM ONCE PRN PRN Reason: Hypoglycemia Stop: 04/24/17 06:33 Glucose (Gluctose) 15 gm PO ONCE PRN PRN Reason: Hypoglycemia Stop: 04/24/17 06:33 Glucose (Gluctose) 30 gm PO ONCE PRN PRN Reason: Hypoglycemia Stop: 04/24/17 06:33 Heparin Sodium (Porcine) (Heparin) 5,000 unit SQ Q12HCO [facility] Stop: 04/24/17 18:01 Dextrose (Dextrose 5%) 1,000 mls @ 100 mls/hr IVC .Q10H PRN PRN Reason: HYPOGLYCEMIA Stop: 04/24/17 06:33 Azithromycin 250 mg/ Dextrose 250 mls @ 252 mls/hr IVPB Q24H [facility] Stop: 04/24/17 07:01 Last Admin: 10/23/16 09:45 Dose: 252 mls/hr Ceftriaxone Sodium 1,000 mg/ (Dextrose) 100 mls @ 200 mls/hr IVPB Q24H [facility] Stop: 04/24/17 07:01 Last Admin: 10/23/16 08:28 Dose: 200 mls/hr Insulin Detemir (Levemir) 10 unit SQ BID [facility] Stop: 04/24/17 21:01 Insulin Human Lispro (Humalog) 0 units SQ HS [facility] PRN Reason: Protocol Stop: 04/24/17 21:01 Insulin Human Lispro (Humalog) 0 units SQ TIDAC [facility] PRN Reason: Protocol Stop: 04/24/17 07:31 Last Admin: 10/23/16 08:29 Dose: 6 units Losartan Potassium (Cozaar) 50 mg PO DAILY [facility] Stop: 04/24/17 09:01 Last Admin: 10/23/16 08:27 Dose: 50 mg Magnesium Oxide (Mag-Ox) 400 mg PO DAILY [facility] PRN Reason: Protocol Stop: 04/24/17 09:01 Last Admin: 10/23/16 08:28 Dose: 400 mg Methylprednisolone (Solu-Medrol) 40 mg IVP Q8HR [facility] Stop: 04/24/17 16:01 Metolazone (Zaroxolyn) 5 mg PO DAILY [facility] Stop: 04/24/17 09:31 Morphine Sulfate (Morphine Sulfate) 2 mg IVP Q4HR PRN PRN Reason: Severe Pain (7-10) Stop: 04/24/17 06:24 Naloxone HCl (Narcan) 0.4 mg IVP Q2MIN PRN PRN Reason: Opioid Reversal Stop: 04/24/17 06:24 Nicotine (Nicoderm) 14 mg TD DAILY [facility] PRN Reason: Protocol Stop: 04/24/17 09:46 Last Admin: 10/23/16 10:32 Dose: 14 mg Ondansetron HCl (Zofran) 4 mg IVP Q8HR PRN PRN Reason: Nausea And Vomiting Stop: 04/24/17 06:24 Potassium Chloride (Potassium Chloride) 20 meq PO DAILY [facility] Stop: 04/24/17 09:01 Last Admin: 10/23/16 08:28 Dose: 20 meq Tiotropium [place] (Spiriva) 18 mcg IH DAILY [facility] Stop: 04/24/17 09:01 Last Admin: 10/23/16 08:13 Dose: Not Given - Imaging and Cardiology Echo: report reviewed Cardiac cath: report reviewed - EKG Interpretation EKG results cardiology: personally reviewed (SR, similar to prior) Consult Discharge Plan - Plan Referrals: Jagdeep Rodriguez MD [Primary Care Provider] - 11/04/16 4:30 pm (Please follow up as schedule...)
[2016-10-23] MEDS: metOLazone 5 MG TABLET PO SCH (12:02)
[2016-10-23] MEDS: MethylPREDNISolone 40 MG/ML VIAL IVP SCH (14:27)
[2016-10-23] MEDS: *HR* Heparin 5,000 UNIT/ML VIAL SQ SCH (16:40)
[2016-10-23] MEDS: Famotidine 20 MG TABLET PO SCH (16:41)
[2016-10-23] MEDS: Sennosides/Docusate Sodium TABLET PO PRN (16:48)
[2016-10-23] MEDS ORDERED: Famotidine 20 MG/2 ML VIAL IVP SCH (18:00)
[2016-10-23] MEDS ORDERED: Insulin LISPRO 300 UNITS/3 ML VIAL SQ SCH (21:00)
[2016-10-23] MEDS: Insulin DETEMIR 100 UNIT/ML X5UNITS SQ SCH (21:13)
[2016-10-23] MEDS ORDERED: Insulin LISPRO 300 UNITS/3 ML VIAL SQ ONE (22:45)
[2016-10-24] MEDS: MethylPREDNISolone 40 MG/ML VIAL IVP SCH ×2 (00:36→07:59)
[2016-10-24] MEDS: Ipratropium/Albuterol Neb 3 ML IH SCH ×6 (03:57→23:34)
[2016-10-24] MEDS: *HR* Heparin 5,000 UNIT/ML VIAL SQ SCH ×2 (06:18→18:40)
[2016-10-24] MEDS: Budesonide/Formoterol 160/4.5 MDI IH SCH ×2 (07:47→19:45)
[2016-10-24] MEDS: Famotidine 20 MG TABLET PO SCH ×2 (07:58→16:38)
[2016-10-24] MEDS: Furosemide 40 MG/4 ML VIAL IVP SCH ×2 (07:59→16:40)
[2016-10-24] MEDS: Insulin LISPRO 300 UNITS/3 ML VIAL SQ SCH ×4 (08:05→21:57)
[2016-10-24] MEDS: metOLazone 5 MG TABLET PO SCH (09:29)
[2016-10-24] MEDS: Magnesium Oxide 400 MG TABLET PO SCH (09:29)
[2016-10-24] MEDS: Aspirin 81 MG TAB.CHEW PO SCH (09:29)
[2016-10-24] MEDS: Nicotine 14 MG PATCH.TD24 TD SCH (09:30)
[2016-10-24] MEDS: Azithromycin 250 MG TABLET PO SCH (09:30)
[2016-10-24] MEDS: Insulin DETEMIR 100 UNIT/ML X5UNITS SQ SCH ×2 (09:36→22:00)
--- NOTE | 2016-10-24 10:39 | Internal Med Progress Note ---
<Lazaro Weldon - Last Filed: 10/24/16 14:57> Date of Encounter: 10/24/16 Time of Encounter: 10:00 - Assessment and plan (1) Acute exacerbation of CHF (congestive heart failure) Current Visit: Yes Status: Acute Assessment and plan: likely 2/2 to noncompliance. Patient has hx of non compliance with fluid restriction, low salt diet, medication adherence. BNP 841 Continue IV Lasix, Metolazone PO Strict I/Os, daily weights, Fluid restriction low salt diet. Qualifiers: Congestive heart failure type: systolic Qualified Code(s): I50.23 - Acute on chronic systolic (congestive) heart failure (2) Ischemic cardiomyopathy Current Visit: Yes Status: Chronic Assessment and plan: Chronic, stable. Hx of STEMI and PCI x 2 09/30/16 and PTCA to diag. Repeat [facility] 10/14 showed widely patent stents. continue BB and ARB follow up echo Out patient per cards (3) Diabetes Current Visit: Yes Status: Chronic Assessment and plan: Chronic. Poorly controlled worsened currently by steroids last hgb A1c 12 will recheck. allegedly only on metformin at home. 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 Repeat [facility] 10/14 showed widely patent stents. continue Plavix, ASA, statin, BB, ARB Qualifiers: Coronary Disease-Associated Artery/Lesion type: [place] artery [place] vs. transplanted heart: [place] heart Associated angina: without angina Qualified Code(s): I25.10 - Atherosclerotic heart disease of [place] coronary artery without angina pectoris (5) Acute exacerbation of chronic obstructive pulmonary disease (COPD) Current Visit: Yes Status: Acute Assessment and plan: Less likely. Mostly CHF exacerbation reduced prednisone changed abx: stopped ceftriaxone, increased Azithromycin continue duonebs (6) Essential hypertension Current Visit: Yes Status: Chronic Assessment and plan: chronic, stable continue home meds. (7) Hyperlipidemia Current Visit: Yes Status: Chronic Assessment and plan: Chronic, stable. continue statin Qualifiers: Hyperlipidemia type: unspecified Qualified Code(s): E78.5 - Hyperlipidemia , unspecified (8) Depression Current Visit: Yes Status: Chronic Assessment and plan: Chronic, stable continue home meds. Qualifiers: Depression Type: unspecified Qualified Code(s): F32.9 - Major depressive disorder, single episode, unspecified (9) Chronic respiratory failure with hypoxia Current Visit: Yes Status: Chronic Assessment and plan: improved Secondary to CHF exacerbation patient is on home oxygen. - Subjective Interval history: Patient reports improved shortness of breath today. Patient denies Chest pain, abd pain, N, V, D. Patient has a hx of non compliance. - Constitutional Vitals: Temp Pulse Resp BP Pulse Ox 97.5 F L 94 16 119/72 91 10/24/16 07:02 10/24/16 07:02 10/24/16 07:02 10/24/16 07:02 10/24/16 07:02 General appearance: Present: A&O X 3, answers questions appropriately - Head Head exam: Present: atraumatic, normocephalic - Eye Eye exam: Present: PERRL, conjuntiva pink, sclera anicteric Pupils: Present: PERRL - Neck Neck exam general surgery: Present: supple, trachea midline. Absent: lymphadenopathy - Respiratory Respiratory exam: Present: decreased breath sounds. Absent: accessory muscle use, rhonchi, wheezes Additional comments: some basilar crackles - Cardiovascular Cardiovascular exam: Present: RRR, +S1, +S2. Absent: diastolic murmur, gallop, rubs, systolic murmur - GI/Abdominal GI/Abdominal exam: Present: normal bowel sounds, soft, no peritoneal signs. Absent: distended, tenderness - Extremities Exam Extremities exam: Present: warm. Absent: calf tenderness, cyanotic, pedal edema - Neurological Exam Neurological exam: Present: alert, oriented X3. Absent: facial droop, speech deficit - Skin Skin exam: Present: dry, intact Internal Medicine: Result - Labs CBC & Chem 7: 10/24/16 11:28 10/24/16 11:28 Labs: Cardiac Enzymes 10/23/16 10/23/16 Range/Units 12:45 18:32 Troponin I 0.68 H* 0.67 H* (0-0.03) ng/mL - ABG Interpretation ABG results: PT/INR, D-dimer PT 14.1 Seconds (9.4-12.1) H 10/23/16 07:20 Consult Discharge Plan - Plan Referrals: Jagdeep Rodriguez MD [Primary Care Provider] - 11/04/16 4:30 pm (Please follow up as schedule...) <Griffin Mitchell - Last Filed: 10/24/16 18:52> Date of Encounter: 10/24/16 - Assessment and plan (1) Acute and chronic respiratory failure with hypoxia Current Visit: Yes Status: Acute (2) Acute exacerbation of CHF (congestive heart failure) Current Visit: Yes Status: Acute Qualifiers: Congestive heart failure type: systolic Qualified Code(s): I50.23 - Acute on chronic systolic (congestive) heart failure (3) CAD (coronary artery disease) Current Visit: Yes Status: Chronic Qualifiers: Coronary Disease-Associated Artery/Lesion type: [place] artery [place] vs. 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 (6) Hyperlipidemia Current Visit: Yes Status: Chronic Qualifiers: Hyperlipidemia type: mixed hyperlipidemia Qualified Code(s): E78.2 - Mixed hyperlipidemia - Constitutional Vitals: Temp Pulse Resp BP Pulse Ox 97.1 F L 91 16 108/74 91 10/24/16 17:14 10/24/16 17:14 10/24/16 17:14 10/24/16 17:14 10/24/16 17:14 Internal Medicine: Result - Labs CBC & Chem 7: 10/24/16 11:28 10/24/16 11:28 Labs: Short CBC 10/24/16 Range/Units 11:28 WBC 9.8 (4.3-11.1) K/mcL Hgb 12.2 L (12.9-16.9) g/dL Hct 39.0 (37.5-50.1) % Plt Count 201 (140-400) K/mcL Neutrophils # 9.0 H (1.6-8.9) K/mcL BMP 10/24/16 11:28 Sodium 137 Potassium 4.2 Chloride 96 L Carbon Dioxide 31 H BUN 32 H Creatinine 1.06 Glucose 502 H* Calcium 9.4 Cardiac Enzymes 10/23/16 Range/Units 18:32 Troponin I 0.67 H* (0-0.03) ng/mL - ABG Interpretation ABG results: PT/INR, D-dimer PT 14.1 Seconds (9.4-12.1) H 10/23/16 07:20 - Attending Attestation I examined this patient and my medical decision-making was reviewed with the Resident Physician on 10/24/16. I agree with the documented findings, disposition and treatment plan as described except to the extent set forth below. Mr. Suarez is currently admitted for acute exac CHF. He remains moderate to high risk due to potential for worsening resp status. Mr. Suarez is doing OK. His breathing seems somewhat better. No fever or chills. No other new issues. Exam Alert. Comfortable Heart not tachy Lungs diminished. Abd soft I/P 1. Exac CHF 2. Noncompliance with therapy. Further diagnoses and plan as above.
[2016-10-24] MEDS ORDERED: Magnesium Sulfate 2 GM in D5% in Water 100 ML IVPB ONE (11:16)
[2016-10-24 11:45] LABS: Basophils % 0.1 %; Hemoglobin 12.2 g/dL (12.9-16.9); Immature Granulocytes % 0.4 % (0-4); Lymphocytes # 0.5 K/mcL (0.6-4.6); Lymphocytes % 5.2 %; Mean Corpuscular HGB Conc 31.3 g/dL (31.6-35.5); Mean Corpuscular Volume 89.7 fL (83.0-100.0); Mean Platelet Volume 11.9 fL (9.4-12.4); Monocytes # 0.3 K/mcL (0.0-1.3); Monocytes % 2.6 %; Platelet Count 201 K/mcL (140-400); Red Blood Count 4.35 M/mcL (4.19-5.50); Red Cell Distribution Width 13.2 % (11.5-14.5); Segmented Neutrophils % 91.7 %
[2016-10-24 12:16] LABS: BUN/Creatinine Ratio 30 (6-26); Blood Urea Nitrogen 32 mg/dL (8-26); Calcium 9.4 mg/dL (8.6-10.8); Carbon Dioxide 31 mEq/L (19-29); Chloride 96 mEq/L (98-109); Magnesium 1.5 mg/dL (1.6-2.6); Osmolality,Calculated 313 (280-300); Potassium 4.2 mEq/L (3.5-4.5); Sodium 137 mEq/L (136-145); eGFR For African Americans > 60 (> 60); eGFR For Non-African Americans > 60 (> 60)
[2016-10-24 12:18] LABS: Glucose 502 mg/dL (70-99)
[2016-10-24] MEDS ORDERED: Insulin LISPRO 300 UNITS/3 ML VIAL SQ ONE (12:33)
[2016-10-24] MEDS: predniSONE 20 MG TABLET PO SCH (16:38)
--- NOTE | 2016-10-24 17:05 | Electrocardiograph Report ---
[place] [id number] Test Date: 2016-10-23 Pat Name: Ananth Suarez Department: 112 Room: 2A Gender: M Reproductive Surgeon: ALEJANDRO : 1955 Requested By: Keith Carbajal Order Number: [id number] Reading MD: Mehdi Pavon DO Measurements Intervals [place] Rate: 92 P: 5 RI: 170 QRS: 104 QRSD: 90 T: -89 QT: 372 QTc: 422 Interpretive Statements SINUS RHYTHM ANTEROSEPTAL MYOCARDIAL INFARCTION, AGE UNDETERMINED Electronically Signed On 10-24-2016 17:04:16 EDT by Mehdi Pavon DO
[2016-10-24] MEDS: Sennosides/Docusate Sodium TABLET PO PRN (21:27)
[2016-10-25] MEDS: Ipratropium/Albuterol Neb 3 ML IH SCH ×6 (03:31→22:52)
[2016-10-25 04:36] LABS: Basophils % 0.1 %; Hematocrit 38.3 % (37.5-50.1); Hemoglobin 12.5 g/dL (12.9-16.9); Immature Granulocytes % 0.5 % (0-4); Mean Corpuscular HGB Conc 32.6 g/dL (31.6-35.5); Mean Corpuscular Hemoglobin 29.1 pg (28.0-33.3); Mean Corpuscular Volume 89.1 fL (83.0-100.0); Mean Platelet Volume 12.5 fL (9.4-12.4); Monocytes # 0.7 K/mcL (0.0-1.3); Monocytes % 4.1 %; Neutrophils # 15.4 K/mcL (1.6-8.9); Platelet Count 202 K/mcL (140-400); Red Cell Distribution Width 13.2 % (11.5-14.5); Segmented Neutrophils % 89.3 %
[2016-10-25 04:43] LABS: Hemoglobin A1C 12.2 %
[2016-10-25 04:52] LABS: BUN/Creatinine Ratio 40 (6-26); Blood Urea Nitrogen 41 mg/dL (8-26); Calcium 9.9 mg/dL (8.6-10.8); Carbon Dioxide 31 mEq/L (19-29); Chloride 95 mEq/L (98-109); Glucose 471 mg/dL (70-99); Magnesium 1.8 mg/dL (1.6-2.6); Osmolality,Calculated 313 (280-300); Potassium 4.6 mEq/L (3.5-4.5); Sodium 136 mEq/L (136-145); eGFR For African Americans > 60 (> 60); eGFR For Non-African Americans > 60 (> 60)
[2016-10-25] MEDS: Famotidine 20 MG TABLET PO SCH ×2 (06:13→16:21)
[2016-10-25] MEDS: predniSONE 20 MG TABLET PO SCH (06:14)
[2016-10-25] MEDS: *HR* Heparin 5,000 UNIT/ML VIAL SQ SCH ×2 (06:18→16:21)
[2016-10-25] MEDS: Azithromycin 250 MG in D5% in Water 250 ML IVPB SCH (07:37)
[2016-10-25] MEDS: Budesonide/Formoterol 160/4.5 MDI IH SCH ×2 (07:38→19:30)
[2016-10-25] MEDS: Aspirin 81 MG TAB.CHEW PO SCH (08:07)
[2016-10-25] MEDS: Magnesium Oxide 400 MG TABLET PO SCH (08:07)
[2016-10-25] MEDS: Azithromycin 250 MG TABLET PO SCH (08:07)
[2016-10-25] MEDS: metOLazone 5 MG TABLET PO SCH (08:07)
[2016-10-25] MEDS: Nicotine 14 MG PATCH.TD24 TD SCH (08:08)
[2016-10-25] MEDS: Insulin LISPRO 300 UNITS/3 ML VIAL SQ SCH ×6 (08:13→21:25)
[2016-10-25] MEDS: Insulin DETEMIR 100 UNIT/ML X5UNITS SQ SCH ×2 (08:14→21:27)
[2016-10-25] MEDS: Furosemide 40 MG/4 ML VIAL IVP SCH ×2 (08:15→16:25)
--- NOTE | 2016-10-25 09:30 | Internal Med Progress Note ---
<Lazaro Weldon - Last Filed: 10/25/16 09:57> Date of Encounter: 10/25/16 Time of Encounter: 09:30 - Assessment and plan (1) Acute exacerbation of CHF (congestive heart failure) Current Visit: Yes Status: Acute Assessment and plan: Improving likely 2/2 to noncompliance. -Patient has hx of non compliance with fluid restriction, low salt diet, medication adherence. -BNP 841 -Continue IV Lasix, Metolazone PO -Strict I/Os, daily weights, Fluid restriction -low salt diet. Qualifiers: Congestive heart failure type: systolic Qualified Code(s): I50.23 - Acute on chronic systolic (congestive) heart failure (2) Ischemic cardiomyopathy Current Visit: Yes Status: Chronic Assessment and plan: Chronic, stable. -Hx of STEMI and PCI x 2 09/30/16 and PTCA to diag. Repeat [facility] 10/14 showed widely patent stents. -continue BB and ARB -follow up echo Out patient per cards (3) Diabetes Current Visit: Yes Status: Chronic Assessment and plan: Chronic. Poorly controlled worsened currently by steroids hgb A1c 12.2 worse than previous allegedly only on metformin at home. Increased SSI to high and increased levemir from 10 BID to 15 BID yesterday minimal improvement. Will increase levemir again. 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 Repeat [facility] 10/14 showed widely patent stents. -continue Plavix, ASA, statin, BB, ARB Qualifiers: Coronary Disease-Associated Artery/Lesion type: [place] artery [place] vs. transplanted heart: [place] heart Associated angina: without angina Qualified Code(s): I25.10 - Atherosclerotic heart disease of [place] coronary artery without angina pectoris (5) Acute exacerbation of chronic obstructive pulmonary disease (COPD) Current Visit: Yes Status: Acute Assessment and plan: Less likely. Mostly CHF exacerbation -reduced prednisone -changed abx: stopped ceftriaxone, increased Azithromycin -continue duonebs (6) Essential hypertension Current Visit: Yes Status: Chronic Assessment and plan: chronic, stable -continue home meds. (7) Hyperlipidemia Current Visit: Yes Status: Chronic Assessment and plan: Chronic, stable. -continue statin Qualifiers: Hyperlipidemia type: mixed hyperlipidemia Qualified Code(s): E78.2 - Mixed hyperlipidemia (8) Depression Current Visit: Yes Status: Chronic Assessment and plan: Chronic, stable -continue home meds. Qualifiers: Depression Type: unspecified Qualified Code(s): F32.9 - Major depressive disorder, single episode, unspecified (9) Chronic respiratory failure with hypoxia Current Visit: Yes Status: Chronic Assessment and plan: improved -Secondary to CHF exacerbation -patient is on home oxygen. - Subjective Interval history: Patient sleeping when entering the room, on bipap. Patient reports improved shortness of breath today. Patient denies Chest pain, abd pain, N, V, D. Patient has a hx of non compliance. - Constitutional Vitals: Temp Pulse Resp BP Pulse Ox 97.6 F 89 20 126/81 99 10/25/16 07:50 10/25/16 07:50 10/25/16 07:50 10/25/16 07:50 10/25/16 08:28 General appearance: Present: A&O X 3, answers questions appropriately - Head Head exam: Present: atraumatic, normocephalic - Eye Eye exam: Present: PERRL, conjuntiva pink, sclera anicteric Pupils: Present: PERRL - Neck Neck exam general surgery: Present: supple, trachea midline - Respiratory Respiratory exam: Present: decreased breath sounds, CTAB. Absent: accessory muscle use, rales, rhonchi, wheezes - Cardiovascular Cardiovascular exam: Present: RRR, +S1, +S2. Absent: diastolic murmur, gallop, rubs, systolic murmur - GI/Abdominal GI/Abdominal exam: Present: normal bowel sounds, soft, no peritoneal signs. Absent: distended, tenderness - Extremities Exam Extremities exam: Present: warm. Absent: calf tenderness, cyanotic, pedal edema - Neurological Exam Neurological exam: Present: alert, oriented X3. Absent: facial droop, speech deficit - Psychiatric Psychiatric exam: Present: normal affect, normal mood - Skin Skin exam: Present: dry, intact Internal Medicine: Result - Labs CBC & Chem 7: 10/25/16 04:05 10/25/16 04:05 Labs: Short CBC 10/24/16 10/25/16 Range/Units 11:28 04:05 WBC 9.8 17.2 H D (4.3-11.1) K/mcL Hgb 12.2 L 12.5 L (12.9-16.9) g/dL Hct 39.0 38.3 (37.5-50.1) % Plt Count 201 202 (140-400) K/mcL Neutrophils # 9.0 H 15.4 H (1.6-8.9) K/mcL BMP 10/24/16 10/25/16 11:28 04:05 Sodium 137 136 Potassium 4.2 4.6 H Chloride 96 L 95 L Carbon Dioxide 31 H 31 H BUN 32 H 41 H Creatinine 1.06 1.02 Glucose 502 H* 471 H Calcium 9.4 9.9 - ABG Interpretation ABG results: PT/INR, D-dimer PT 14.1 Seconds (9.4-12.1) H 10/23/16 07:20 Consult Discharge Plan - [facility] [place] [facility] - 11/04/16 4:30 pm (Please follow up as schedule...) <Griffin Mitchell - Last Filed: 10/25/16 17:49> Date of Encounter: 10/25/16 - Assessment and plan (1) Acute and chronic respiratory failure with hypoxia Current Visit: Yes Status: Acute (2) Acute exacerbation of CHF (congestive heart failure) Current Visit: Yes Status: Acute Qualifiers: Congestive heart failure type: systolic Qualified Code(s): I50.23 - Acute on chronic systolic (congestive) heart failure (3) CAD (coronary artery disease) Current Visit: Yes Status: Chronic Qualifiers: Coronary Disease-Associated Artery/Lesion type: [place] artery [place] vs. transplanted heart: [place] heart Associated angina: without angina Qualified Code(s): I25.10 - Atherosclerotic heart disease of [place] coronary artery without angina pectoris (4) Essential hypertension Current Visit: Yes Status: Chronic (5) Diabetes Current Visit: Yes Status: Chronic Qualifiers: Diabetes mellitus type: type 2 Diabetes mellitus complication status: with hyperglycemia Diabetes mellitus assisted insulin use: with beer brewer use Qualified Code(s): E11.65 - Type 2 diabetes mellitus with hyperglycemia; Z79.4 - half-way (current) use of insulin (6) Hyperlipidemia Current Visit: Yes Status: Chronic Qualifiers: Hyperlipidemia type: mixed hyperlipidemia Qualified Code(s): E78.2 - Mixed hyperlipidemia - Constitutional Vitals: Temp Pulse Resp BP Pulse Ox 97.7 F 70 16 91/58 97 10/25/16 15:43 10/25/16 15:43 10/25/16 15:43 10/25/16 15:43 10/25/16 15:43 Internal Medicine: Result - Labs CBC & Chem 7: 10/25/16 04:05 10/25/16 04:05 Labs: Short CBC 10/25/16 Range/Units 04:05 WBC 17.2 H D (4.3-11.1) K/mcL Hgb 12.5 L (12.9-16.9) g/dL Hct 38.3 (37.5-50.1) % Plt Count 202 (140-400) K/mcL Neutrophils # 15.4 H (1.6-8.9) K/mcL BMP 10/25/16 04:05 Sodium 136 Potassium 4.6 H Chloride 95 L Carbon Dioxide 31 H BUN 41 H Creatinine 1.02 Glucose 471 H Calcium 9.9 - ABG Interpretation ABG results: PT/INR, D-dimer PT 14.1 Seconds (9.4-12.1) H 10/23/16 07:20 - Attending Attestation I examined this patient and my medical decision-making was reviewed with the Resident Physician on 10/25/16. I agree with the documented findings, disposition and treatment plan as described except to the extent set forth below. Mr. Suarez is currently admitted for acute exac CHF and hypoxia. He remains moderate to high risk due to potential for worsening respiratory status. Mr Suarez is very tired today. No CP. No fever or chills. Diuresing. Blood sugars have been high due to steroids. Exam Alert. Comfortable Mucus membranes dry Heart reg No wheeze but rhonchi heard Abd soft I/P 1. Hypoxia 2. CHF exac Further diagnoses and plan as above.
[2016-10-25] MEDS ORDERED: Insulin DETEMIR 100 UNIT/ML X5UNITS SQ ONE (11:59)
[2016-10-25] MEDS ORDERED: Sennosides/Docusate Sodium TABLET PO ONE (13:23)
[2016-10-26] MEDS: Ipratropium/Albuterol Neb 3 ML IH SCH ×6 (03:41→23:50)
[2016-10-26 05:51] LABS: Basophils % 0.1 %; Eosinophils % 0.1 %; Hematocrit 40.1 % (37.5-50.1); Hemoglobin 12.9 g/dL (12.9-16.9); Immature Granulocytes % 0.4 % (0-4); Lymphocytes # 2.3 K/mcL (0.6-4.6); Lymphocytes % 15.2 %; Mean Corpuscular HGB Conc 32.2 g/dL (31.6-35.5); Mean Corpuscular Hemoglobin 28.2 pg (28.0-33.3); Mean Corpuscular Volume 87.6 fL (83.0-100.0); Mean Platelet Volume 11.8 fL (9.4-12.4); Monocytes # 0.8 K/mcL (0.0-1.3); Monocytes % 5.3 %; Neutrophils # 12.1 K/mcL (1.6-8.9); Platelet Count 210 K/mcL (140-400); Red Blood Count 4.58 M/mcL (4.19-5.50); Red Cell Distribution Width 13.4 % (11.5-14.5); Segmented Neutrophils % 78.9 %
[2016-10-26 06:11] LABS: BUN/Creatinine Ratio 50 (6-26); Blood Urea Nitrogen 41 mg/dL (8-26); Calcium 9.7 mg/dL (8.6-10.8); Carbon Dioxide 30 mEq/L (19-29); Chloride 98 mEq/L (98-109); Glucose 197 mg/dL (70-99); Osmolality,Calculated 300 (280-300); Sodium 137 mEq/L (136-145); eGFR For African Americans > 60 (> 60); eGFR For Non-African Americans > 60 (> 60)
[2016-10-26 06:12] LABS: Potassium 4.4 mEq/L (3.5-4.5)
[2016-10-26] MEDS: predniSONE 20 MG TABLET PO SCH (06:27)
[2016-10-26] MEDS: Famotidine 20 MG TABLET PO SCH (06:27)
[2016-10-26] MEDS: *HR* Heparin 5,000 UNIT/ML VIAL SQ SCH ×2 (06:28→16:07)
[2016-10-26] MEDS: Nicotine 14 MG PATCH.TD24 TD SCH (08:43)
[2016-10-26] MEDS: Sennosides/Docusate Sodium TABLET PO SCH (08:44)
[2016-10-26] MEDS: Aspirin 81 MG TAB.CHEW PO SCH (08:44)
[2016-10-26] MEDS: Magnesium Oxide 400 MG TABLET PO SCH (08:45)
[2016-10-26] MEDS: Insulin DETEMIR 100 UNIT/ML X5UNITS SQ SCH ×2 (08:45→20:57)
[2016-10-26] MEDS: metOLazone 5 MG TABLET PO SCH (08:45)
[2016-10-26] MEDS: Azithromycin 250 MG TABLET PO SCH (08:45)
[2016-10-26] MEDS: Insulin LISPRO 300 UNITS/3 ML VIAL SQ SCH ×7 (08:46→20:56)
[2016-10-26] MEDS: Furosemide 40 MG/4 ML VIAL IVP SCH ×2 (08:46→15:55)
[2016-10-26] MEDS: Budesonide/Formoterol 160/4.5 MDI IH SCH ×2 (10:24→19:36)
--- NOTE | 2016-10-26 15:36 | Internal Med Progress Note ---
Date of Encounter: 10/26/16 Time of Encounter: 10:30 - Assessment and plan (1) Acute and chronic respiratory failure with hypoxia Current Visit: Yes Status: Acute Assessment and plan: Thinks he is doing better today. Will continue bipap at night. Currently set up for sleep study as outpatient. Wean oxygen as able. Repeat CXR shows better aeration. (2) Acute exacerbation of CHF (congestive heart failure) Current Visit: Yes Status: Acute Assessment and plan: Continue I/Os, fluid restriction, weights and diuresis. Seems to be slowly improving but not ready for discharge yet. Qualifiers: Congestive heart failure type: systolic Qualified Code(s): I50.23 - Acute on chronic systolic (congestive) heart failure (3) CAD (coronary artery disease) Current Visit: Yes Status: Chronic Assessment and plan: Hx of STEMI and PCI x 2 09/30/16 and PTCA to diag. Repeat [facility] 10/14 showed widely patent stents. -continue Plavix, ASA, statin, BB, ARB Qualifiers: Coronary Disease-Associated Artery/Lesion type: [place] artery [place] vs. transplanted heart: [place] heart Associated angina: without angina Qualified Code(s): I25.10 - Atherosclerotic heart disease of [place] coronary artery without angina pectoris (4) Essential hypertension Current Visit: Yes Status: Chronic Assessment and plan: chronic, stable -continue home meds. (5) Diabetes Current Visit: Yes Status: Chronic Assessment and plan: Blood sugars seem to be better controlled today with the increased Levemir. Steroids decreased today. Continue to follow. 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 -continue statin Qualifiers: Hyperlipidemia type: mixed hyperlipidemia Qualified Code(s): E78.2 - Mixed hyperlipidemia - Subjective Interval history: Mr. Suarez is currently admitted for hypoxia and exac CHF. He remains moderate to high risk due to potential for worsening resp status. Mr. Suarez feels somewhat better today. No fever or chills. Feels that bipap really helps his breathing. Says his edema feels better today. Can't mobilize sputum well. No CP. - Constitutional Vitals: Temp Pulse Resp BP Pulse Ox 97.4 F L 72 16 113/67 90 10/26/16 12:28 10/26/16 12:28 10/26/16 12:28 10/26/16 12:28 10/26/16 12:28 General appearance: Present: A&O X 3, answers questions appropriately - Head Head exam: Present: normocephalic - Eye Eye exam: Present: EOMI, conjuntiva pink - ENT ENT exam: Present: mucous membranes dry - Respiratory Respiratory exam: Present: CTAB. Absent: rales, rhonchi, wheezes - Cardiovascular Cardiovascular exam: Present: distant heart sounds, RRR - GI/Abdominal GI/Abdominal exam: Present: soft. Absent: tenderness - Extremities Exam Extremities exam: Present: pedal edema, warm - Neurological Exam Neurological exam: Present: alert, oriented X3, no focal deficits - Psychiatric Psychiatric exam: Present: normal affect, normal mood - Skin Skin exam: Present: dry, warm. Absent: rash Internal Medicine: Result - Labs CBC & Chem 7: 10/26/16 05:42 10/26/16 05:42 Labs: Short CBC 10/26/16 Range/Units 05:42 WBC 15.3 H (4.3-11.1) K/mcL Hgb 12.9 (12.9-16.9) g/dL Hct 40.1 (37.5-50.1) % Plt Count 210 (140-400) K/mcL Neutrophils # 12.1 H (1.6-8.9) K/mcL BMP 10/26/16 05:42 Sodium 137 Potassium 4.4 Chloride 98 Carbon Dioxide 30 H BUN 41 H Creatinine 0.82 Glucose 197 H Calcium 9.7 - ABG Interpretation ABG results: PT/INR, D-dimer PT 14.1 Seconds (9.4-12.1) H 10/23/16 07:20 - Impressions Impressions Chest X-Ray 10/26/16 09:15 IMPRESSION: 1. Unchanged small bilateral pleural effusions. D/ / Stephen Bell MD / Stephen Bell MD Interpreting Provider: Stephen Bell MD Consult Discharge Plan - Plan Referrals: Jagdeep Rodriguez MD [Primary Care Provider] - 11/04/16 4:30 pm (Please follow up as schedule...)
[2016-10-27] MEDS: Ipratropium/Albuterol Neb 3 ML IH SCH ×2 (04:18→07:34)
[2016-10-27] MEDS: *HR* Heparin 5,000 UNIT/ML VIAL SQ SCH (05:30)
[2016-10-27] MEDS ORDERED: predniSONE 20 MG TABLET PO SCH (07:00)
[2016-10-27 07:08] LABS: Basophils % 0.1 %; Eosinophils # 0.1 K/mcL (0.0-0.6); Eosinophils % 0.5 %; Hematocrit 40.1 % (37.5-50.1); Hemoglobin 12.5 g/dL (12.9-16.9); Immature Granulocytes % 0.3 % (0-4); Lymphocytes # 2.1 K/mcL (0.6-4.6); Lymphocytes % 19.6 %; Mean Corpuscular HGB Conc 31.2 g/dL (31.6-35.5); Mean Corpuscular Hemoglobin 27.7 pg (28.0-33.3); Mean Corpuscular Volume 88.7 fL (83.0-100.0); Mean Platelet Volume 11.5 fL (9.4-12.4); Monocytes # 0.8 K/mcL (0.0-1.3); Monocytes % 7.6 %; Neutrophils # 7.7 K/mcL (1.6-8.9); Platelet Count 181 K/mcL (140-400); Red Blood Count 4.52 M/mcL (4.19-5.50); Red Cell Distribution Width 13.4 % (11.5-14.5); Segmented Neutrophils % 71.9 %
[2016-10-27] MEDS: Budesonide/Formoterol 160/4.5 MDI IH SCH (07:35)
[2016-10-27 07:42] LABS: BUN/Creatinine Ratio 44 (6-26); Blood Urea Nitrogen 35 mg/dL (8-26); Calcium 9.2 mg/dL (8.6-10.8); Carbon Dioxide 38 mEq/L (19-29); Chloride 94 mEq/L (98-109); Glucose 192 mg/dL (70-99); Osmolality,Calculated 295 (280-300); Potassium 3.8 mEq/L (3.5-4.5); Sodium 136 mEq/L (136-145); eGFR For African Americans > 60 (> 60); eGFR For Non-African Americans > 60 (> 60)
[2016-10-27] MEDS: Azithromycin 250 MG TABLET PO SCH (08:19)
[2016-10-27] MEDS: metOLazone 5 MG TABLET PO SCH (08:19)
[2016-10-27] MEDS: Aspirin 81 MG TAB.CHEW PO SCH (08:20)
[2016-10-27] MEDS: Magnesium Oxide 400 MG TABLET PO SCH (08:20)
[2016-10-27] MEDS: Nicotine 14 MG PATCH.TD24 TD SCH (08:20)
[2016-10-27] MEDS: Sennosides/Docusate Sodium TABLET PO SCH (08:20)
[2016-10-27] MEDS: Insulin DETEMIR 100 UNIT/ML X5UNITS SQ SCH (08:21)
[2016-10-27] MEDS: Insulin LISPRO 300 UNITS/3 ML VIAL SQ SCH ×2 (08:22→08:23)
[2016-10-27] MEDS: Furosemide 40 MG/4 ML VIAL IVP SCH (08:23)
[2016-10-27 08:41] VITALS: BP 94/56
--- NOTE | 2016-10-27 09:48 | Discharge Summary ---
Date of Encounter: 10/27/16 Time of Encounter: 09:45 - Discharge Diagnosis (1) Acute and chronic respiratory failure with hypoxia Priority: Primary Status: Acute (2) Acute exacerbation of CHF (congestive heart failure) Priority: Primary Status: Acute Qualifiers: Congestive heart failure type: systolic Qualified Code(s): I50.23 - Acute on chronic systolic (congestive) heart failure (3) CAD (coronary artery disease) Priority: Secondary Status: Chronic Qualifiers: Coronary Disease-Associated Artery/Lesion type: [place] artery [place] vs. 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 of 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 (7) COPD (chronic obstructive pulmonary disease) Priority: Secondary Status: Chronic Qualifiers: COPD type: chronic bronchitis Chronic bronchitis type: simple Qualified Code(s): J41.0 - Simple chronic bronchitis (8) Hyperlipidemia Priority: Secondary Status: Chronic Qualifiers: Hyperlipidemia type: mixed hyperlipidemia Qualified Code(s): E78.2 - Mixed hyperlipidemia (9) Tobacco abuse Priority: Secondary Status: Chronic - Discharge Medications Prescriptions: Azithromycin [Zithromax] 500 mg PO Q24H #3 tab Furosemide [Lasix] 20 mg PO DAILY #30 Insulin Glargine,Hum.rec.anlog [Lantus Solostar] 25 unit SQ BID #1 insuln.pen metOLazone [Zaroxolyn] 2.5 mg PO DAILY #30 tab predniSONE [PredniSONE] 20 mg PO DAILY@0700 #5 tab Home Medications: Aspirin 81 mg PO DAILY #30 tab 10/02/16 [Rx] Clopidogrel [Plavix] 75 mg PO DAILY #30 tab 10/02/16 [Rx] Carvedilol 12.5 mg PO BID 10/14/16 [History] Magnesium Oxide [Mag-Ox] 400 mg PO DAILY #30 tab 10/15/16 [Rx] Albuterol Sulfate [Proair Hfa] 2 puff IH Q2H PRN 10/22/16 [History] Albuterol Sulfate [Ventolin Hfa] 18 gm IH DAILY 10/22/16 [History] Atorvastatin Calcium [Lipitor] 80 mg PO DAILY 10/22/16 [History] Budesonide/Formoterol 160/4.5 [Symbicort 160/4.5] 1 puff IH BIDR 10/22/16 [ History] Losartan Potassium [Cozaar] 50 mg PO DAILY 10/22/16 [History] Metformin HCl [Glucophage] 1,000 mg PO BID 10/22/16 [History] Potassium Chloride [Klor-Con Sprinkle] 20 meq PO DAILY 10/22/16 [History] Sulindac 150 mg PO BID PRN 10/22/16 [History] Tiotropium [Spiriva] 18 mcg IH DAILY 10/22/16 [History] Azithromycin [Zithromax] 500 mg PO Q24H #3 tab 10/27/16 [Rx] Furosemide [Lasix] 20 mg PO DAILY #30 10/27/16 [Rx] Insulin Glargine,Hum.rec.anlog [Lantus Solostar] 25 unit SQ BID #1 insuln.pen [Rx] Insulin LISPRO [HumaLOG] 5 units SQ TIDWM vial 10/27/16 [Rx] Nicotine Patch [Nicoderm] 14 mg TD DAILY #0 10/27/16 [Rx] metOLazone [Zaroxolyn] 2.5 mg PO DAILY #30 tab 10/27/16 [Rx] predniSONE [PredniSONE] 20 mg PO DAILY@0700 #5 tab 10/27/16 [Rx] Allergies/Adverse Reactions: 3 Allergy/AdvReac Type Severity Reaction Status Date / Time codeine Allergy Itching, Verified 10/22/16 23:49 Rash Date of admission: 10/23/16 06:37 Primary care physician: Jagdeep Rodriguez MD Consults: 10/23/16 09:26 Consult to Cardiology [CONS] Routine Comment: Consulting Provider: Cardiology Deanna Reason for Consult: Recurrent admission for volume overload and acute CHF Call Completed: Yes Discharging clinician: Griffin Mitchell Anticipated date of discharge: 10/27/16 - Patient Status Disposition: Home Health Service Condition: Fair Functional capacity at discharge: independent ambulation Overall status at discharge: patient is progressing back to baseline - Discharge Instructions Follow Up With: Jagdeep Rodriguez MD [Primary Care Provider] - 11/04/16 4:30 pm (Please follow up as schedule...) - Diet and Activity Activity: increase activity as tolerated Diet: diabetic diet, low salt diet (1200ml fluid restriction) Hospital course: Mr. Suarez is a 61 year old male with hx of STEMI s/p stent placement in 10/03 presented to ED with worsening dyspnea. He has systolic CHF and had been taking in too much fluid and salt. He was evaluated and admitted for further treatment. Mr. Suarez was admitted to [facility]. He was started on IV diuretics, fluid restriction, oxygen and nocturnal bipap. There was concern for pneumonia and he received a course of IV abx. He will complete PO Azithromycin after discharge. He had slow steady improvement in his breathing with diuresis. His blood sugars were markedly elevated and insulin was started and adjusted. On further questioning at discharge he relayed that he has Lantus and Novolog at home that he uses. He continued to improve with current course of management and on 10/27 he felt nearly baseline. He was able to ambulate in the hallway. His blood sugar was overall improving and I did caution him to watch his blood sugars closely as he may not need as much insulin as Prednisone is decreased. He understood. On 10/27 he was alert and oriented. He was afebrile with stable vitals and felt ready for discharge home. He has outpatient sleep study scheduled for 10/29. Time spent discussing smoking cessation with patient: 3 to 10 minutes - Time Spent with Patient Total time spent providing and/or coordinating discharge services: 45min - Constitutional Vitals: Temp Pulse Resp BP Pulse Ox 97.7 F 54 16 94/56 90 10/27/16 08:39 10/27/16 08:39 10/27/16 08:39 10/27/16 08:39 10/27/16 08:39 General appearance: Present: A&O X 3, pleasant, answers questions appropriately - Head Head exam: Present: normocephalic - Eye Eye exam: Present: EOMI, conjuntiva pink - ENT ENT exam: Present: mucous membranes moist - Respiratory Respiratory exam: Present: CTAB. Absent: rales, rhonchi, wheezes - Cardiovascular Cardiovascular exam: Present: diastolic murmur, RRR. Absent: tachycardia - GI/Abdominal GI/Abdominal exam: Present: soft. Absent: tenderness - Extremities Exam Extremities exam: Present: warm. Absent: tenderness - Neurological Exam Neurological exam: Present: alert, oriented X3, no focal deficits - Psychiatric Psychiatric exam: Present: normal affect, normal mood - Skin Skin exam: Present: dry, warm. Absent: rash
--- NOTE | 2016-10-27 10:22 | Physician Discharge Referral ---
Home Health/Hosp Referral Info Transfer to: Home Health Attending Provider: Griffin Mitchell DO Provider in Charge Post Discharge: PCP - Diagnosis (1) Acute and chronic respiratory failure with hypoxia Priority: Primary Status: Acute (2) Acute exacerbation of CHF (congestive heart failure) Priority: Primary Status: Acute (3) CAD (coronary artery disease) Priority: Secondary Status: Chronic (4) Ischemic cardiomyopathy Priority: Secondary Status: Chronic (5) Essential hypertension Priority: Secondary Status: Chronic (6) Diabetes Priority: Secondary Status: Chronic (7) COPD (chronic obstructive pulmonary disease) Priority: Secondary Status: Chronic (8) Hyperlipidemia Priority: Secondary Status: Chronic (9) Tobacco abuse Priority: Secondary Status: Chronic - Respiratory Orders Oxygen / L per min (Keep sat greater than 90%) Smoking Cessation: Smoking cessation has been advised. For more information, call the [place] Tobacco Quit Line at 8-030-XSUC-NOW. - Diet/Nutrition Diet/Nutrition: List: Cardiac diet, diabetic diet. 1200ml fluid restriction - Activity Activity Orders: Up ad rajiv - Services Needed Following services are medically necessary services: Correction Care Orders: Diet instruction, monitoring. - Transfer Medications Prescriptions: Azithromycin [Zithromax] 500 mg PO Q24H #3 tab Furosemide [Lasix] 20 mg PO DAILY #30 Insulin Glargine,Hum.rec.anlog [Lantus Solostar] 25 unit SQ BID #1 insuln.pen metOLazone [Zaroxolyn] 2.5 mg PO DAILY #30 tab predniSONE [PredniSONE] 20 mg PO DAILY@0700 #5 tab Home Medications: Aspirin 81 mg PO DAILY #30 tab 10/02/16 [Rx] Clopidogrel [Plavix] 75 mg PO DAILY #30 tab 10/02/16 [Rx] Carvedilol 12.5 mg PO BID 10/14/16 [History] Magnesium Oxide [Mag-Ox] 400 mg PO DAILY #30 tab 10/15/16 [Rx] Albuterol Sulfate [Proair Hfa] 2 puff IH Q2H PRN 10/22/16 [History] Albuterol Sulfate [Ventolin Hfa] 18 gm IH DAILY 10/22/16 [History] Atorvastatin Calcium [Lipitor] 80 mg PO DAILY 10/22/16 [History] Budesonide/Formoterol 160/4.5 [Symbicort 160/4.5] 1 puff IH BIDR 10/22/16 [ History] Losartan Potassium [Cozaar] 50 mg PO DAILY 10/22/16 [History] Metformin HCl [Glucophage] 1,000 mg PO BID 10/22/16 [History] Potassium Chloride [Klor-Con Sprinkle] 20 meq PO DAILY 10/22/16 [History] Sulindac 150 mg PO BID PRN 10/22/16 [History] Tiotropium [Spiriva] 18 mcg IH DAILY 10/22/16 [History] Azithromycin [Zithromax] 500 mg PO Q24H #3 tab 10/27/16 [Rx] Furosemide [Lasix] 20 mg PO DAILY #30 10/27/16 [Rx] Insulin Glargine,Hum.rec.anlog [Lantus Solostar] 25 unit SQ BID #1 insuln.pen [Rx] Insulin LISPRO [HumaLOG] 5 units SQ TIDWM vial 10/27/16 [Rx] Nicotine Patch [Nicoderm] 14 mg TD DAILY #0 10/27/16 [Rx] metOLazone [Zaroxolyn] 2.5 mg PO DAILY #30 tab 10/27/16 [Rx] predniSONE [PredniSONE] 20 mg PO DAILY@0700 #5 tab 10/27/16 [Rx] Allergies/Adverse Reactions: 3 Allergy/AdvReac Type Severity Reaction Status Date / Time codeine Allergy Itching, Verified 10/22/16 23:49 Rash Certification: Further, I certify that my clinical findings support that this patient is homebound (i.e. absences from home require considerable and taxing effort and are for medical reasons or [employer] services or infrequently or short duration when for other reasons) because: Homebound Reason: Leaving home requires considerable and taxing effort due to condition, Severity of cardiac or pulmonary status limits activity tolerance Attestation: My signature below is to certify that this patient is under my care and that I, or nurse practitioner, or a physician's assistant prosecuting attorney working with me, has a face-to -face encounter with this patient.
== END 2016-10-27 11:04 | disposition home health service (06) | DRG 291 ==
LOC: 2ANU
PROVIDERS: ADMIT Internal Medicine; ATTEND Internal Medicine

== ENCOUNTER 2016-11-24 20:19 | Observation (INO) ==
[2016-11-24 20:50] LABS: Basophils % 0.3 %; Eosinophils # 0.1 K/mcL (0.0-0.6); Eosinophils % 1.3 %; Hematocrit 37.4 % (37.5-50.1); Hemoglobin 11.7 g/dL (12.9-16.9); Immature Granulocytes % 0.3 % (0-4); Lymphocytes # 1.5 K/mcL (0.6-4.6); Lymphocytes % 20.8 %; Mean Corpuscular HGB Conc 31.3 g/dL (31.6-35.5); Mean Corpuscular Hemoglobin 27.5 pg (28.0-33.3); Mean Platelet Volume 11.3 fL (9.4-12.4); Monocytes # 0.5 K/mcL (0.0-1.3); Monocytes % 6.7 %; Neutrophils # 5.1 K/mcL (1.6-8.9); Platelet Count 188 K/mcL (140-400); Red Blood Count 4.25 M/mcL (4.19-5.50); Red Cell Distribution Width 14.2 % (11.5-14.5); Segmented Neutrophils % 70.6 %
[2016-11-24 20:55] LABS: INR 1.4
[2016-11-24 20:58] LABS: Activated Partial Thrombo Time 30.7 Seconds (26.0-36.0)
[2016-11-24 21:01] LABS: BUN/Creatinine Ratio 25 (6-26); Blood Urea Nitrogen 21 mg/dL (8-26); Calcium 9.5 mg/dL (8.6-10.8); Carbon Dioxide 33 mEq/L (19-29); Chloride 99 mEq/L (98-109); Glucose 245 mg/dL (70-99); Osmolality,Calculated 299 (280-300); Potassium 4.3 mEq/L (3.5-4.5); Sodium 139 mEq/L (136-145); eGFR For African Americans > 60 (> 60); eGFR For Non-African Americans > 60 (> 60)
[2016-11-24] MEDS ORDERED: Ipratropium/Albuterol Neb 3 ML IH ONE (21:06)
[2016-11-24] MEDS ORDERED: methylPREDNISolone 125 MG/2 ML VIAL IVP ONE (21:07)
--- NOTE | 2016-11-24 21:30 | Emergency Department Note ---
Disposition Clinical Impression: Chest pain, Shortness of breath Disposition: Admitted As Inpatient Condition: Good Referrals: Jagdeep Rodriguez MD [Primary Care Provider] - Time of Disposition: 21:32 Chest Pain HPI - General Chief Complaint: ED Chest Pain Stated Complaint: stephanie/chest pains has stents placed 4 wks ago Time Seen by Provider: 11/24/16 20:26 Source: patient, family Limitations: no limitations Vital Signs Reviewed: Yes Nursing Notes Reviewed: Yes - History of Present Illness HPI Narrative: 61-year-old male presents emergency room for chest pain. Intermittent associate with shortness of breath since yesterday. Located on the left anterior chest wall. Nothing seems to improve or worsen his symptoms. Nothing seems to exaggerate his symptoms. He does have a history of coronary disease. History of 5 stents. His last stent was placed approximately one month ago. He states he has been compliant with his medications. He denies any lower extremity pain. He has a current every day smoker. He does do home nebulized treatments. He does wear home oxygen as well. Patient does take Plavix at home. Severity scale (1-10): 4 - Related Data Home Medications Medication Instructions Recorded Confirmed Carvedilol 12.5 mg PO BID 10/14/16 10/23/16 Albuterol Sulfate [Proair Hfa] 2 puff IH Q2H PRN 10/22/16 10/23/16 Albuterol Sulfate [Ventolin Hfa] 18 gm IH DAILY 10/22/16 10/23/16 Atorvastatin Calcium [Lipitor] 80 mg PO DAILY 10/22/16 10/23/16 Budesonide/Formoterol 160/4.5 1 puff IH BIDR 10/22/16 10/23/16 [Symbicort 160/4.5] Losartan Potassium [Cozaar] 50 mg PO DAILY 10/22/16 10/23/16 Metformin HCl [Glucophage] 1,000 mg PO BID 10/22/16 10/23/16 Potassium Chloride [Klor-Con 20 meq PO DAILY 10/22/16 10/23/16 Sprinkle] Sulindac 150 mg PO BID PRN 10/22/16 10/23/16 Tiotropium [Spiriva] 18 mcg IH DAILY 10/22/16 10/23/16 Previous Rx's Medication Instructions Recorded Aspirin 81 mg PO DAILY #30 tab 10/02/16 Clopidogrel [Plavix] 75 mg PO DAILY #30 tab 10/02/16 Magnesium Oxide [Mag-Ox] 400 mg PO DAILY #30 tab 10/15/16 Azithromycin [Zithromax] 500 mg PO Q24H #3 tab 10/27/16 Furosemide [Lasix] 20 mg PO DAILY #30 10/27/16 Insulin Glargine,Hum.rec.anlog 25 unit SQ BID #1 insuln.pen 10/27/16 [Lantus Solostar] Insulin LISPRO [HumaLOG] 5 units SQ TIDWM vial 10/27/16 Nicotine Patch [Nicoderm] 14 mg TD DAILY #0 10/27/16 metOLazone [Zaroxolyn] 2.5 mg PO DAILY #30 tab 10/27/16 predniSONE [PredniSONE] 20 mg PO DAILY@0700 #5 tab 10/27/16 Allergies Allergy/AdvReac Type Severity Reaction Status Date / Time codeine Allergy Itching, Verified 10/22/16 23:49 Rash Constitutional: Reports: as per HPI Eyes: Reports: as per HPI Cardiovascular: Reports: chest pain Respiratory: Reports: dyspnea Gastrointestinal: Reports: as per HPI Genitourinary: Reports: as per HPI Musculoskeletal: Reports: as per HPI Integumentary: Reports: as per HPI Neurological: Reports: as per HPI Psychiatric: Reports: as per HPI Endocrine: Reports: as per HPI Hematological/Lymphatic: Reports: as per HPI Allergic/Immunologic: Reports: as per HPI Chest Pain PMH - Past Medical History Medical history: Reports: cardiomyopathy, CHF, COPD, coronary artery disease, diabetes, hyperlipidemia, hypertension, myocardial infarction Surgical history: Reports: angioplasty/stent, orthopedic, other (Left ankle surgery), other Psychiatric history: Reports: depression - Social History Smoking Status: Current every day smoker Alcohol use: Reports: none Drug use: Reports: marijuana Physical Exam - General Limitations: no limitations General appearance: alert, in no apparent distress - Head Head exam: atraumatic, normocephalic - Neck Neck exam: Present: normal inspection - Chest Chest inspection: Present: normal inspection, symmetric chest wall rise - Respiratory Respiratory exam: Present: wheezes (Patient with bilateral wheezing heard throughout.). Absent: respiratory distress - Cardiovascular Cardiovascular exam: Present: regular rate, normal rhythm - Abdominal Exam Abdominal exam: Present: soft, Non-Tender. Absent: tenderness - Extremities Exam Extremities exam: Present: normal inspection - Expanded Lower Extremity Exam Hip/Pelvis exam: Present: swelling - Back Exam Back exam: Present: normal inspection - Neurological Exam Neurological exam: Present: alert, oriented X3 - Psychiatric Psychiatric exam: Present: normal affect, normal mood - Skin Skin exam: Present: warm, dry, intact Course Vital Signs Temperature 97.3 F L 11/24/16 20:30 Pulse Rate 82 11/24/16 20:30 Respiratory Rate 20 11/24/16 20:30 Blood Pressure 102/74 11/24/16 20:30 O2 Sat by Pulse Oximetry 98 11/24/16 20:30 Temperature 97.3 F L 11/24/16 20:30 Pulse Rate 82 11/24/16 20:30 Respiratory Rate 12 11/24/16 21:22 Blood Pressure 102/74 11/24/16 21:22 O2 Sat by Pulse Oximetry 97 11/24/16 21:22 Oxygen Delivery Oxygen Delivery Nasal Cannula Chest Pain - MDM Narrative Medical decision making narrative: Patient had a slight elevation of his troponin. Chest x-ray negative. Remaining labs okay. He was given a DuoNeb treatment in the ER for his wheezing. Patient will need to be admitted for further coronary rule out and pulmonary treatments and observation. He is okay with this plan. He states he did take his Plavix and aspirin today. - Medical Records Medical records reviewed: Yes I reviewed the patient's medical records. - Lab Data Lab results reviewed: Yes I reviewed the patient's lab results. Result diagrams: 11/24/16 20:43 11/24/16 20:43 Lab Results 11/24/16 11/24/16 11/24/16 Range/Units 20:43 20:43 20:43 WBC 7.2 (4.3-11.1) K/mcL RBC 4.25 (4.19-5.50) M/mcL Hgb 11.7 L (12.9-16.9) g/dL Hct 37.4 L (37.5-50.1) % MCV 88.0 (83.0-100.0) fL MCH 27.5 L (28.0-33.3) pg MCHC 31.3 L (31.6-35.5) g/dL RDW 14.2 (11.5-14.5) % Plt Count 188 (140-400) K/mcL MPV 11.3 (9.4-12.4) fL Immature Gran % 0.3 (0-4) % Seg Neutrophils % 70.6 % Lymphocytes % 20.8 % Monocytes % 6.7 % Eosinophils % 1.3 % Basophils % 0.3 % Neutrophils # 5.1 (1.6-8.9) K/mcL Lymphocytes # 1.5 (0.6-4.6) K/mcL Monocytes # 0.5 (0.0-1.3) K/mcL Eosinophils # 0.1 (0.0-0.6) K/mcL Basophils # 0.0 (0.0-0.2) K/mcL PT 15.0 H (9.4-12.1) Seconds INR 1.4 APTT 30.7 (26.0-36.0) Seconds Sodium 139 (136-145) mEq/L Potassium 4.3 (3.5-4.5) mEq/L Chloride 99 (98-109) mEq/L Carbon Dioxide 33 H (19-29) mEq/L BUN 21 (8-26) mg/dL Creatinine 0.84 (0.72-1.25) mg/dL Est GFR ( Amer) > 60 (> 60) Est GFR (Non-Af Amer) > 60 (> 60) BUN/Creatinine Ratio 25 (6-26) Glucose 245 H (70-99) mg/dL Calculated Osmolality 299 (280-300) Calcium 9.5 (8.6-10.8) mg/dL Troponin I (0-0.03) ng/mL 11/24/16 Range/Units 20:43 WBC (4.3-11.1) K/mcL RBC (4.19-5.50) M/mcL Hgb (12.9-16.9) g/dL Hct (37.5-50.1) % MCV (83.0-100.0) fL MCH (28.0-33.3) pg MCHC (31.6-35.5) g/dL RDW (11.5-14.5) % Plt Count (140-400) K/mcL MPV (9.4-12.4) fL Immature Gran % (0-4) % Seg Neutrophils % % Lymphocytes % % Monocytes % % Eosinophils % % Basophils % % Neutrophils # (1.6-8.9) K/mcL Lymphocytes # (0.6-4.6) K/mcL Monocytes # (0.0-1.3) K/mcL Eosinophils # (0.0-0.6) K/mcL Basophils # (0.0-0.2) K/mcL PT (9.4-12.1) Seconds INR APTT (26.0-36.0) Seconds Sodium (136-145) mEq/L Potassium (3.5-4.5) mEq/L Chloride (98-109) mEq/L Carbon Dioxide (19-29) mEq/L BUN (8-26) mg/dL Creatinine (0.72-1.25) mg/dL Est GFR ( Amer) (> 60) Est GFR (Non-Af Amer) (> 60) BUN/Creatinine Ratio (6-26) Glucose (70-99) mg/dL Calculated Osmolality (280-300) Calcium (8.6-10.8) mg/dL Troponin I 0.05 H* (0-0.03) ng/mL - Radiology Data Radiology results reviewed: Yes I reviewed the patient's radiology results. - EKG Data EKG attestation: Yes I reviewed and interpreted this EKG. EKG results narrative: EKG shows rate of 77. Sinus arrhythmia. MO interval 169. QRS 97. QTC 398. Left axis deviation. No signs of acute ischemia.
[2016-11-24] MEDS ORDERED: MOM Conc 10 ML UD.LIQ PO PRN (23:57)
[2016-11-24] MEDS ORDERED: Acetaminophen 325 MG TABLET PO PRN (23:57)
[2016-11-24] MEDS ORDERED: *HR* HYDROcodone/Acet 5/325 mg TABLET PO PRN (23:57)
[2016-11-24] MEDS ORDERED: *HR* Morphine 2 MG/ML SYRINGE IVP PRN (23:57)
[2016-11-24] MEDS ORDERED: Ondansetron 4 MG/2 ML VIAL IVP PRN (23:57)
[2016-11-24] MEDS ORDERED: Naloxone 0.4 MG/ML INJ IVP PRN (23:57)
[2016-11-24] MEDS ORDERED: *HR* Promethazine 25 MG/ML VIAL IVP PRN (23:57)
[2016-11-25] MEDS ORDERED: Dextrose Gel 15 GM PO PRN ×2 (00:19)
[2016-11-25] MEDS ORDERED: D5% in Water 1,000 ML IVC PRN (00:19)
[2016-11-25] MEDS ORDERED: *HR* Dextrose 50 % in Water (Syg) 50 ML SYRINGE IVP PRN (00:19)
--- NOTE | 2016-11-25 00:29 | Internal Med History&Physical ---
Date of Encounter: 11/24/16 Time of Encounter: 23:50 Assessment and Plan (1) Acute exacerbation of chronic obstructive pulmonary disease (COPD) Current visit: No Status: Acute Will place the pt into Tele for observation Started him on IV steroids Placed him on Duoneb Q3hr ALONSO Cont O2 Counseled to quit smoking (2) Acute bronchitis Current visit: Yes Status: Acute He does have purulent bronchitis..mostly bacterial started him on empirical abx PO Levofloxacin Qualifiers: Qualified Code(s): J20.9 - Acute bronchitis, unspecified (3) Elevated troponin Current visit: No Status: Acute Slightly elevated troponin Mostly demand ischemia Pt denied any CP EKG showed SR with VR 77 Left axis deviation. No acute ST T changes No signs of acute ischemia cont trend on trop (4) CAD (coronary artery disease) Current visit: No Status: Chronic resumed all home meds ASA + Plavix + Statin + B carmela Qualifiers: Coronary Disease-Associated Artery/Lesion type: [place] artery [place] vs. transplanted heart: [place] heart Associated angina: without angina Qualified Code(s): I25.10 - Atherosclerotic heart disease of [place] coronary artery without angina pectoris (5) Chronic respiratory failure with hypoxia Current visit: No Status: Chronic (6) Diabetes Current visit: No Status: Chronic on ISS + PO Home meds Qualifiers: Diabetes mellitus type: type 2 Diabetes mellitus complication status: with hyperglycemia Diabetes mellitus residential insulin use: with bullet maker use Qualified Code(s): E11.65 - Type 2 diabetes mellitus with hyperglycemia; Z79.4 - USP (current) use of insulin (7) Essential hypertension Current visit: No Status: Chronic Stable (8) Hyperlipidemia Current visit: No Status: Chronic Qualifiers: Hyperlipidemia type: mixed hyperlipidemia Qualified Code(s): E78.2 - Mixed hyperlipidemia (9) Ischemic cardiomyopathy Current visit: No Status: Chronic not in CHF exacerbation resumed all home meds including diuretics (10) Nicotine dependence Current visit: No Status: Chronic counseled to quit on nicotine patch Qualifiers: Nicotine product type: cigarettes Substance use status: uncomplicated Qualified Code(s): F17.210 - Nicotine dependence, cigarettes, uncomplicated Internal Medicine - H&P: HPI Chief complaint: Shortness of breath Admitted From: Emergency Dept Plans for Post Hospital Care: Home History of present illness: Mr. Suarez is a 61 year old male with history of CAD s/p STEMI 09/2016 sp PCI LAD MEMO x 2, systolic CHF EF 35%, ICMP, DM, HTN, HLD, COPD, chronic home O2 dependent, tobacco abuse. He presented to ER with shortness of breath, cough with greenish expectoration. He is currently active smoker, smokes 1 PPD. He denied any CP . Denied any GI / symptoms. Past Med Surg Social Fam HX - Past Medical History Medical history: cardiomyopathy, CHF, COPD, coronary artery disease, diabetes, hyperlipidemia, hypertension, myocardial infarction Psychiatric history: depression - Past Surgical History Surgical History: angioplasty/stent, orthopedic, other, other - Social History Smoking Status: Current every day smoker Packs per day: 0.5 Smokeless Tobacco Status: No Alcohol use: none Drug use: marijuana - Family History Mother Living Status: Internal Medicine - H&P: Meds Aspirin 81 mg PO DAILY #30 tab 10/02/16 [Rx] Clopidogrel [Plavix] 75 mg PO DAILY #30 tab 10/02/16 [Rx] Carvedilol 12.5 mg PO BID 10/14/16 [History] Magnesium Oxide [Mag-Ox] 400 mg PO DAILY #30 tab 10/15/16 [Rx] Albuterol Sulfate [Proair Hfa] 2 puff IH Q2H PRN 10/22/16 [History] Albuterol Sulfate [Ventolin Hfa] 18 gm IH DAILY 10/22/16 [History] Budesonide/Formoterol 160/4.5 [Symbicort 160/4.5] 1 puff IH BIDR 10/22/16 [ History] Losartan Potassium [Cozaar] 50 mg PO DAILY 10/22/16 [History] Metformin HCl [Glucophage] 1,000 mg PO BID 10/22/16 [History] Potassium Chloride [Klor-Con Sprinkle] 20 meq PO BID 10/22/16 [History] Tiotropium [Spiriva] 18 mcg IH DAILY 10/22/16 [History] Furosemide [Lasix] 20 mg PO DAILY #30 10/27/16 [Rx] Insulin Glargine,Hum.rec.anlog [Lantus Solostar] 25 unit SQ BID #1 insuln.pen [Rx] Nicotine Patch [Nicoderm] 14 mg TD DAILY #0 10/27/16 [Rx] metOLazone [Zaroxolyn] 2.5 mg PO DAILY #30 tab 10/27/16 [Rx] Insulin LISPRO [HumaLOG] See Protocol SQ TIDWM 11/24/16 [History] 3 Allergy/AdvReac Type Severity Reaction Status Date / Time codeine Allergy Itching, Verified 10/22/16 23:49 Rash All Systems PM: A 10-system review of systems was performed and is negative for pertinent findings except as documented above in the HPI. Review of systems: All the systems are reviewed everything is benign except the systems and symptoms I mentioned in the history of present illness - Constitutional Vitals: Temp Pulse Resp BP Pulse Ox 97.6 F 82 16 104/71 91 11/24/16 22:58 11/24/16 22:58 11/24/16 22:58 11/24/16 22:58 11/24/16 23:15 General appearance: Present: A&O X 3, no acute distress, answers questions appropriately - Head Head exam: Present: atraumatic, normal inspection - Respiratory Respiratory exam: Present: decreased breath sounds, wheezes (moderate). Absent : rales, respiratory distress, rhonchi - Cardiovascular Cardiovascular exam: Present: RRR, +S1, +S2. Absent: systolic murmur - GI/Abdominal GI/Abdominal exam: Present: normal bowel sounds, soft. Absent: rebound, rigid, tenderness - Extremities Exam Extremities exam: Present: pedal edema (trace). Absent: calf tenderness, tenderness - Neurological Exam Neurological exam: Present: alert, oriented X3 - Psychiatric Psychiatric exam: Present: normal affect, normal mood Internal Med - H&P Results - Labs CBC & Chem 7: 11/24/16 20:43 11/24/16 20:43
[2016-11-25 00:38] LABS: Basophils % 0.3 %; Eosinophils % 0.5 %; Hematocrit 36.8 % (37.5-50.1); Hemoglobin 11.3 g/dL (12.9-16.9); Immature Granulocytes % 0.4 % (0-4); Lymphocytes # 0.7 K/mcL (0.6-4.6); Lymphocytes % 9.6 %; Mean Corpuscular HGB Conc 30.7 g/dL (31.6-35.5); Mean Corpuscular Hemoglobin 26.8 pg (28.0-33.3); Mean Corpuscular Volume 87.2 fL (83.0-100.0); Mean Platelet Volume 11.7 fL (9.4-12.4); Monocytes # 0.2 K/mcL (0.0-1.3); Neutrophils # 6.7 K/mcL (1.6-8.9); Platelet Count 193 K/mcL (140-400); Red Blood Count 4.22 M/mcL (4.19-5.50); Red Cell Distribution Width 14.3 % (11.5-14.5); Segmented Neutrophils % 87.2 %
[2016-11-25 00:51] LABS: BUN/Creatinine Ratio 26 (6-26); Blood Urea Nitrogen 21 mg/dL (8-26); Calcium 9.4 mg/dL (8.6-10.8); Carbon Dioxide 31 mEq/L (19-29); Chloride 100 mEq/L (98-109); Chol/HDL Ratio 4.1 (0-4.9); Cholesterol 115 mg/dL (< 200); Glucose 159 mg/dL (70-99); HDL Cholesterol 28 mg/dL (40-59); LDL Cholesterol,Calculated 72 mg/dL (0-99); Osmolality,Calculated 292 (280-300); Potassium 4.2 mEq/L (3.5-4.5); Sodium 138 mEq/L (136-145); Triglycerides 74 mg/dL (< 150); eGFR For African Americans > 60 (> 60); eGFR For Non-African Americans > 60 (> 60)
[2016-11-25] MEDS: Ipratropium/Albuterol Neb 3 ML IH SCH ×6 (03:53→23:23)
[2016-11-25] MEDS: MethylPREDNISolone 40 MG/ML VIAL IVP SCH ×3 (06:16→22:11)
[2016-11-25] MEDS: Insulin LISPRO 300 UNITS/3 ML VIAL SQ SCH ×3 (08:10→17:16)
[2016-11-25] MEDS: Magnesium Oxide 400 MG TABLET PO SCH (08:11)
[2016-11-25] MEDS: levoFLOXacin 500 MG TABLET PO SCH (08:11)
[2016-11-25] MEDS: Aspirin 81 MG TAB.CHEW PO SCH (08:11)
[2016-11-25] MEDS: Famotidine 20 MG TABLET PO SCH ×2 (08:11→20:06)
[2016-11-25] MEDS: metOLazone 5 MG TABLET PO SCH (08:11)
[2016-11-25] MEDS: Furosemide 20 MG TABLET PO SCH (08:11)
[2016-11-25] MEDS: *HR* Metformin 500 MG TABLET PO SCH ×2 (08:11→16:45)
[2016-11-25] MEDS: Nicotine 14 MG PATCH.TD24 TD SCH (08:12)
[2016-11-25] MEDS: Insulin DETEMIR 100 UNIT/ML X5UNITS SQ SCH ×2 (10:48→20:07)
--- NOTE | 2016-11-25 13:33 | Electrocardiograph Report ---
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
--- NOTE | 2016-11-25 17:38 | Internal Med Progress Note ---
Date of Encounter: 11/25/16 Time of Encounter: 08:45 - Assessment and plan (1) Acute exacerbation of chronic obstructive pulmonary disease (COPD) Current Visit: No Status: Acute Assessment and plan: Ananth Suarez is a 61-year-old male with past medical history CAD, COPD, diabetes and hypertension who presented to [facility] on 11/24/2016 with complaints of shortness of breath. He was found to be in an acute COPD exacerbation was placed in observation status for IV steroids and ATB. 1. Acute COPD exacerbation: Wears oxygen at home. Presented with worsening shortness of breath and productive cough. Continue IV steroids, Levaquin, DuoNeb's. Continue O2. Tobacco cessation advised. 2. CAD: With history of stenting. 09/2016 [facility] with widely patent stents. Troponin peaked at 0.06 and trended down (values lower than previous). Continue to monitor on telemetry, check troponin in a.m. Continue home ASA, Plavix, BB 3. Diabetes: Per history. Holding home metformin. SSI. Monitor blood sugar and titrate PRN 4. Hypertension: per hx. BP controlled. Continue home BP medications. Monitor BP and titrate PRN 5. DVT prophylaxis: Heparin (2) CAD (coronary artery disease) Current Visit: No Status: Chronic Qualifiers: Coronary Disease-Associated Artery/Lesion type: [place] artery [place] vs. 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 Information obtained from chart review and patient report. Patient says he feels a little better, still with some shortness of breath. No chest pain. - Constitutional Vitals: Temp Pulse Resp BP Pulse Ox 98.0 F 85 16 107/70 89 11/25/16 16:19 11/25/16 16:19 11/25/16 16:40 11/25/16 16:19 11/25/16 16:40 General appearance: Present: A&O X 3, no acute distress, answers questions appropriately - Head Head exam: Present: atraumatic, normocephalic - Eye Eye exam: Present: PERRL, conjuntiva pink, sclera anicteric Pupils: Present: PERRL - Neck Neck exam general surgery: Present: supple, trachea midline. Absent: lymphadenopathy - Respiratory Respiratory exam: Present: CTAB. Absent: accessory muscle use, rales, rhonchi, wheezes - Cardiovascular Cardiovascular exam: Present: RRR, +S1, +S2. Absent: diastolic murmur, gallop, rubs, systolic murmur - GI/Abdominal GI/Abdominal exam: Present: normal bowel sounds, soft, no peritoneal signs. Absent: distended, tenderness - Extremities Exam Extremities exam: Present: warm, radial pulses palpable and symmetrical. Absent : calf tenderness, cyanotic, pedal edema - Neurological Exam Neurological exam: Present: CN II-XII intact, oriented X3, no focal deficits. Absent: pronater drift, facial droop, speech deficit - Skin Skin exam: Present: dry, intact Internal Medicine: Result - Labs CBC & Chem 7: 11/25/16 00:29 11/25/16 00:29 Labs: Short CBC 11/25/16 Range/Units 00:29 WBC 7.7 (4.3-11.1) K/mcL Hgb 11.3 L (12.9-16.9) g/dL Hct 36.8 L (37.5-50.1) % Plt Count 193 (140-400) K/mcL Neutrophils # 6.7 (1.6-8.9) K/mcL BMP 11/25/16 00:29 Sodium 138 Potassium 4.2 Chloride 100 Carbon Dioxide 31 H BUN 21 Creatinine 0.82 Glucose 159 H Calcium 9.4 Cardiac Enzymes 11/25/16 11/25/16 Range/Units 00:29 05:27 Troponin I 0.06 H* 0.05 H* (0-0.03) ng/mL - ABG Interpretation ABG results: PT/INR, D-dimer PT 15.0 Seconds (9.4-12.1) H 11/24/16 20:43 Consult Discharge Plan - Plan Referrals: Jennifer,Jagdeep Jones MD [Primary Care Provider] -
[2016-11-25] MEDS ORDERED: Insulin LISPRO 300 UNITS/3 ML VIAL SQ SCH (21:00)
[2016-11-26] MEDS: Ipratropium/Albuterol Neb 3 ML IH SCH ×3 (03:08→11:28)
[2016-11-26 05:33] LABS: Hematocrit 34.2 % (37.5-50.1); Hemoglobin 10.9 g/dL (12.9-16.9); Mean Corpuscular HGB Conc 31.9 g/dL (31.6-35.5); Mean Corpuscular Hemoglobin 27.8 pg (28.0-33.3); Mean Corpuscular Volume 87.2 fL (83.0-100.0); Mean Platelet Volume 12.3 fL (9.4-12.4); Platelet Count 186 K/mcL (140-400); Red Blood Count 3.92 M/mcL (4.19-5.50); Red Cell Distribution Width 14.3 % (11.5-14.5)
[2016-11-26] MEDS: MethylPREDNISolone 40 MG/ML VIAL IVP SCH (05:36)
[2016-11-26 05:45] LABS: Alanine Aminotransferase 13 Units/L (0-55); Albumin 2.8 g/dL (3.5-5.0); Albumin/Globulin Ratio 0.9 (1.1-2.2); Alkaline Phosphatase 119 Units/L (38-126); Aspartate Amino Transferase 9 Units/L (5-34); BUN/Creatinine Ratio 34 (6-26); Bilirubin,Total 0.3 mg/dL (0.2-1.2); Blood Urea Nitrogen 39 mg/dL (8-26); Calcium 9.1 mg/dL (8.6-10.8); Carbon Dioxide 28 mEq/L (19-29); Chloride 97 mEq/L (98-109); Glucose 424 mg/dL (70-99); Osmolality,Calculated 303 (280-300); Potassium 5.1 mEq/L (3.5-4.5); Sodium 133 mEq/L (136-145); Total Protein 5.8 g/dL (6.0-8.3); eGFR For African Americans > 60 (> 60); eGFR For Non-African Americans > 60 (> 60)
[2016-11-26] MEDS: Furosemide 20 MG TABLET PO SCH (08:19)
[2016-11-26] MEDS: Magnesium Oxide 400 MG TABLET PO SCH (08:20)
[2016-11-26] MEDS: metOLazone 5 MG TABLET PO SCH (08:21)
[2016-11-26] MEDS: Aspirin 81 MG TAB.CHEW PO SCH (08:23)
[2016-11-26] MEDS: levoFLOXacin 500 MG TABLET PO SCH (08:24)
[2016-11-26] MEDS: Famotidine 20 MG TABLET PO SCH (08:24)
[2016-11-26] MEDS: Nicotine 14 MG PATCH.TD24 TD SCH (08:26)
[2016-11-26] MEDS: Insulin LISPRO 300 UNITS/3 ML VIAL SQ SCH (08:31)
[2016-11-26] MEDS: Insulin DETEMIR 100 UNIT/ML X5UNITS SQ SCH (08:40)
[2016-11-26 11:49] VITALS: BP 95/62
[2016-11-26] MEDS ORDERED: Insulin LISPRO 300 UNITS/3 ML VIAL SQ SCH ×3 (11:54→12:00)
--- NOTE | 2016-11-26 14:22 | Discharge Summary ---
Date of Encounter: 11/26/16 Time of Encounter: 14:15 - Discharge Diagnosis (1) Acute exacerbation of chronic obstructive pulmonary disease (COPD) Priority: Primary Status: Acute Comments: Ananth Suarez is a 61-year-old male with past medical history CAD, COPD, diabetes and hypertension who presented to [facility] on 11/24/2016 with complaints of shortness of breath. He was found to be in an acute COPD exacerbation was placed in observation status for IV steroids and ATB. Symptoms improved and he was discharged home in stable condition with outpatient follow-up. 1. Acute COPD exacerbation: Wears oxygen at home. Presented with worsening shortness of breath and productive cough. Symptoms improved with IV steroids, Levaquin and DuoNeb's. Scuffs smoking cessation at length with patient on day of discharge; he reports these smoking less (former 3 pack per day smoker now down to 1 pack per day). Steroid burst, Levaquin (to complete a total course of 7 days). Has follow-up with PCP scheduled for 11/27/2016. 2. CAD: hx IA 10/01/2016 with stent placement. Repeat LHC 10/14/2016 with widely patent stents. Troponin peaked at 0.06 and trended down (values lower than previous). Continue medical management with home ASA, Plavix, BB, statin. Can follow up with outpatient cardiology. 3. Chronic systolic heart failure: 09/2016 TTE with EF 35% and systolic dysfunction. BNP 479; lower than previous. CXR without evidence of edema. Continue home ASA, BB, Lasix. Can follow up with cardiology outpatient. 3. Diabetes: Per history. Blood sugar uncontrolled while inpatient secondary to IV steroid use. Continue home medication diabetes regimen at discharge. Has follow-up scheduled with PCP on 11/27/2016. 4. Hypertension: per hx. BP borderline/soft. Home losartan stop. Continue home BB. Has follow-up appointment with PCP on 11/27/2016. Defer resuming losartan to PCP. 5. Hyperkalemia: K 5.1. Home potassium stopped. Recommend repeat CMP with PCP. (2) CAD (coronary artery disease) Priority: Primary Status: Chronic Qualifiers: Coronary Disease-Associated Artery/Lesion type: [place] artery [place] vs. transplanted heart: [place] heart Associated angina: without angina Qualified Code(s): I25.10 - Atherosclerotic heart disease of [place] coronary artery without angina pectoris (3) Diabetes Priority: Primary Status: Chronic Qualifiers: Diabetes mellitus type: type 2 Diabetes mellitus complication status: with hyperglycemia Diabetes mellitus assisted insulin use: with assisted use Qualified Code(s): E11.65 - Type 2 diabetes mellitus with hyperglycemia; Z79.4 - intermediate manager (current) use of insulin - Discharge Medications Prescriptions: levoFLOXacin [Levaquin] 750 mg PO DAILY #5 tablet PredniSONE [Deltasone] 40 mg PO DAILY #10 tablet Home Medications: Aspirin 81 mg PO DAILY #30 tab 10/02/16 [Rx] Clopidogrel [Plavix] 75 mg PO DAILY #30 tab 10/02/16 [Rx] Carvedilol 12.5 mg PO BID 10/14/16 [History] Magnesium Oxide [Mag-Ox] 400 mg PO DAILY #30 tab 10/15/16 [Rx] Albuterol Sulfate [Proair Hfa] 2 puff IH Q2H PRN 10/22/16 [History] Albuterol Sulfate [Ventolin Hfa] 18 gm IH DAILY 10/22/16 [History] Budesonide/Formoterol 160/4.5 [Symbicort 160/4.5] 1 puff IH BIDR 10/22/16 [ History] Tiotropium [Spiriva] 18 mcg IH DAILY 10/22/16 [History] Furosemide [Lasix] 20 mg PO DAILY #30 10/27/16 [Rx] Insulin Glargine,Hum.rec.anlog [Lantus Solostar] 25 unit SQ BID #1 insuln.pen [Rx] metOLazone [Zaroxolyn] 2.5 mg PO DAILY #30 tab 10/27/16 [Rx] Insulin LISPRO [HumaLOG] See Protocol SQ TIDWM 11/24/16 [History] BuPROPion SR (12 HR) [Wellbutrin SR] 150 mg PO BID 11/25/16 [History] Glimepiride [Amaryl] 4 mg PO DAILY 11/25/16 [History] Indapamide [Lozol] 2.5 mg PO DAILY 11/25/16 [History] Nitroglycerin [Nitrostat] 0.4 mg SL Q5M PRN 11/25/16 [History] Rosuvastatin Calcium 40 mg PO DAILY 11/25/16 [History] PredniSONE [Deltasone] 40 mg PO DAILY #10 tablet 11/26/16 [Rx] levoFLOXacin [Levaquin] 750 mg PO DAILY #5 tablet 11/26/16 [Rx] Allergies/Adverse Reactions: 3 Allergy/AdvReac Type Severity Reaction Status Date / Time codeine Allergy Itching, Verified 10/22/16 23:49 Rash Date of admission: 11/24/16 21:59 Primary care physician: Jagdeep Rodriguez MD Discharging clinician: Liya Whelan Anticipated date of discharge: 11/26/16 - Patient Status Disposition: Home, Self-Care Functional capacity at discharge: independent ambulation Overall status at discharge: patient is progressing back to baseline - Discharge Instructions Follow Up With: Jagdeep Rodriguez MD [Primary Care Provider] - - Diet and Activity Activity: resume usual activities as tolerated, wear oxygen at night Diet: diabetic diet, low fat, low cholesterol Interval History: CN exam at bedside. Patient says he feels better today still with some shortness of breath but overall improved. Has an intermittent productive cough. No chest pain. Discussed with patient at length the importance of smoking cessation. He says he is cutting down, currently was smoking 3 packs a day now down to less than 1 pack a day. He has follow-up scheduled with his PCP tomorrow. Advised him to follow with cardiology within 1-2 weeks. Hospital course: See assessment and plan for hospital course - Time Spent with Patient Total time spent providing and/or coordinating discharge services: Less than 30 minutes - Constitutional Vitals: Temp Pulse Resp BP Pulse Ox 97.7 F 75 16 95/62 99 11/26/16 11:43 11/26/16 11:43 11/26/16 11:43 11/26/16 11:43 11/26/16 11:43 General appearance: Present: A&O X 3, no acute distress, answers questions appropriately - Head Head exam: Present: atraumatic, normocephalic - Eye Eye exam: Present: PERRL, conjuntiva pink, sclera anicteric Pupils: Present: PERRL - Neck Neck exam general surgery: Present: supple, trachea midline. Absent: lymphadenopathy - Respiratory Respiratory exam: Present: CTAB. Absent: accessory muscle use, rales, rhonchi, wheezes - Cardiovascular Cardiovascular exam: Present: RRR, +S1, +S2. Absent: diastolic murmur, gallop, rubs, systolic murmur - GI/Abdominal GI/Abdominal exam: Present: normal bowel sounds, soft, no peritoneal signs. Absent: distended, tenderness - Extremities Exam Extremities exam: Present: warm, radial pulses palpable and symmetrical. Absent : calf tenderness, cyanotic, pedal edema - Neurological Exam Neurological exam: Present: CN II-XII intact, oriented X3, no focal deficits. Absent: pronater drift, facial droop, speech deficit - Skin Skin exam: Present: dry, intact
== END 2016-11-26 15:24 | disposition home or self-care (01) ==
LOC: EMEROO 20:19 → 3BNU 20:19
PROVIDERS: ADMIT Family Medicine; ATTEND Registered Nurse

== ENCOUNTER 2017-03-06 21:26 | Inpatient (IN) ==
[2017-03-07] MEDS ORDERED: Naloxone 0.4 MG/ML INJ IVP PRN (01:13)
[2017-03-07 01:40] LABS: Basophils % 0.1 %; Eosinophils % 0.1 %; Hematocrit 40.7 % (37.5-50.1); Hemoglobin 12.4 g/dL (12.9-16.9); Immature Granulocytes % 0.4 % (0-4); Lymphocytes # 0.4 K/mcL (0.6-4.6); Lymphocytes % 3.8 %; Mean Corpuscular HGB Conc 30.5 g/dL (31.6-35.5); Mean Corpuscular Hemoglobin 25.9 pg (28.0-33.3); Mean Corpuscular Volume 85.1 fL (83.0-100.0); Mean Platelet Volume 11.9 fL (9.4-12.4); Monocytes # 0.1 K/mcL (0.0-1.3); Monocytes % 0.7 %; Neutrophils # 9.8 K/mcL (1.6-8.9); Platelet Count 187 K/mcL (140-400); Red Blood Count 4.78 M/mcL (4.19-5.50); Red Cell Distribution Width 15.9 % (11.5-14.5); Segmented Neutrophils % 94.9 %
[2017-03-07 02:00] LABS: Alanine Aminotransferase 15 Units/L (7-52); Albumin 3.3 g/dL (3.5-5.7); Alkaline Phosphatase 175 Units/L (34-104); Aspartate Amino Transferase 16 Units/L (13-39); BUN/Creatinine Ratio 23 (6-26); Bilirubin,Total 0.6 mg/dL (0.3-1.0); Blood Urea Nitrogen 22 mg/dL (8-23); Calcium 9.3 mg/dL (8.6-10.3); Carbon Dioxide 33 mEq/L (23-29); Chloride 93 mEq/L (98-107); Globulin 3.2 g/dL (2.4-3.5); Glucose 467 mg/dL (70-105); Osmolality,Calculated 296 (280-300); Potassium 4.7 mEq/L (3.5-5.1); Sodium 131 mEq/L (136-145); Total Protein 6.5 g/dL (6.4-8.9); eGFR For African Americans > 60 (> 60); eGFR For Non-African Americans > 60 (> 60)
[2017-03-07] MEDS ORDERED: Furosemide 40 MG/4 ML VIAL IVP ONE (02:05)
[2017-03-07] MEDS ORDERED: Insulin Human Regular 10 UNIT in 0.9 % Sodium Chloride 10 ML IV ONE (02:12)
[2017-03-07] MEDS ORDERED: D5% in Water 1,000 ML IVC PRN ×2 (02:12→11:52)
[2017-03-07] MEDS ORDERED: Dextrose Gel 15 GM/37.5 ML TUBE PO PRN ×4 (02:12→11:52)
[2017-03-07] MEDS ORDERED: *HR* Dextrose 50 % in Water (Syg) 50 ML SYRINGE IVP PRN ×2 (02:12→11:52)
--- NOTE | 2017-03-07 02:20 | Internal Med History&Physical ---
<Francois Benson - Last Filed: 03/07/17 02:44> Date of Encounter: 03/07/17 Time of Encounter: 02:14 Assessment and Plan (1) Pneumonia Current visit: Yes Status: Acute Pneumonia in the right lower lobe as seen on chest x-ray Patient received ceftriaxone and levaquin in the ED He is saturating well at this time I will give the patient IV Levaquin for CAP Qualifiers: Pneumonia type: due to unspecified organism Laterality: right Lung location: lower lobe of lung Qualified Code(s): J18.1 - Lobar pneumonia, unspecified organism (2) Acute exacerbation of CHF (congestive heart failure) Current visit: No Status: Acute HFrEF due to ischemic carrdiomyopathy, poorly controlled Initial troponin elevated to 0.29 --> 0.14, likely demand ischemia Patient does not seem to have a clear understanding of home regimen, is not taking coreg I will continue asa, plavix, lasix IV, start Coreg and Lisinopril Cardiology consult in AM Qualifiers: Congestive heart failure type: systolic Qualified Code(s): I50.23 - Acute on chronic systolic (congestive) heart failure (3) Diabetes Current visit: Yes Status: Chronic Poorly controlled DM, Insulin dependent Patient will get 10U IV Regular insulin now Low dose sliding scale insulin Continue basal insulin Qualifiers: Diabetes mellitus type: type 2 Diabetes mellitus complication status: with hyperglycemia Diabetes mellitus fci insulin use: with fci use Qualified Code(s): E11.65 - Type 2 diabetes mellitus with hyperglycemia; Z79.4 - peoplesoft hcm consultant (current) use of insulin (4) COPD (chronic obstructive pulmonary disease) Current visit: Yes Status: Chronic Patient has diffuse wheezes but is oxygenating well Continue home meds, PRN duonebs Qualifiers: COPD type: chronic bronchitis Chronic bronchitis type: simple Qualified Code(s): J41.0 - Simple chronic bronchitis (5) DVT prophylaxis Current visit: Yes Status: Acute SQ Heparin Internal Medicine - H&P: HPI Chief complaint: Shortness of breath Admitted From: Emergency Dept Plans for Post Hospital Care: Home History of present illness: Mr. Suarez is a 62 year old male with history of COPD, diabetes mellitus, CHF with a left ventricular ejection fraction of approximately 30%, previous NE's who presented to an [facility] emergency room for worsening shortness of breath it has been occurring over approximately 3 weeks. Currently had a myocardial infarction in September at which time he received more stents and has had difficulty breathing since. He says that it has been a continuous problem, however over the past several days the patient has been experiencing worsening shortness of breath. He said that he does wear oxygen at home at 4 L generally , however he has had to use more oxygen more frequently. Additionally he cannot be as active due to the shortness of breath. He denies any chest pains associated with this although he does have a cough which is constant and does not appear any worse than normal. He does state that he has had worsening edema in his legs as well. Generally he feels his inhalers and oxygen are enough to support his shortness of breath, however he feels that his inhalers are no longer as effective as they were. He does admit to orthopnea as well as some PND. He denies any fever, or he does say that he has had intermittent sweats and chills. He has no other complaints at this time. Past Med Surg Social Fam HX - Past Medical History Medical history: cardiomyopathy, CHF, COPD, coronary artery disease, diabetes, hyperlipidemia, hypertension, myocardial infarction Psychiatric history: depression - Past Surgical History Surgical History: angioplasty/stent, orthopedic, other, other - Social History Smoking Status: Current every day smoker Packs per day: 10 day Smokeless Tobacco Status: No Alcohol use: none Drug use: marijuana - Family History Mother Name: bob Hutchinson Living Status: Age at : 74 Cause of : alzheimers Internal Medicine - H&P: Meds Aspirin 81 mg PO DAILY #30 tab 10/02/16 [Rx] Clopidogrel [Plavix] 75 mg PO DAILY #30 tab 10/02/16 [Rx] Carvedilol 12.5 mg PO BID 10/14/16 [History] Magnesium Oxide [Mag-Ox] 400 mg PO DAILY #30 tab 10/15/16 [Rx] Albuterol Sulfate [Proair Hfa] 2 puff IH Q2H PRN 10/22/16 [History] Albuterol Sulfate [Ventolin Hfa] 18 gm IH DAILY 10/22/16 [History] Budesonide/Formoterol 160/4.5 [Symbicort 160/4.5] 1 puff IH BIDR 10/22/16 [ History] Tiotropium [Spiriva] 18 mcg IH DAILY 10/22/16 [History] Insulin Glargine,Hum.rec.anlog [Lantus Solostar] 25 unit SQ BID #1 insuln.pen [Rx] metOLazone [Zaroxolyn] 2.5 mg PO DAILY #30 tab 10/27/16 [Rx] Insulin LISPRO [HumaLOG] See Protocol SQ TIDWM 11/24/16 [History] BuPROPion SR (12 HR) [Wellbutrin SR] 150 mg PO BID 11/25/16 [History] Glimepiride [Amaryl] 4 mg PO DAILY 11/25/16 [History] Indapamide [Lozol] 2.5 mg PO DAILY 11/25/16 [History] Nitroglycerin [Nitrostat] 0.4 mg SL Q5M PRN 11/25/16 [History] Rosuvastatin Calcium 40 mg PO DAILY 11/25/16 [History] PredniSONE [Deltasone] 40 mg PO DAILY #10 tablet 11/26/16 [Rx] levoFLOXacin [Levaquin] 750 mg PO DAILY #5 tablet 11/26/16 [Rx] Furosemide [Lasix] 40 mg PO BID 03/07/17 [History] 3 Allergy/AdvReac Type Severity Reaction Status Date / Time codeine Allergy Itching, Verified 10/22/16 23:49 Rash All Systems PM: A 10-system review of systems was performed and is negative for pertinent findings except as documented above in the HPI. Review of systems: - Constitutional: Denies fevers, chills, weight loss, generalized fatigue - Head/Neck: Denies NICE, neck stiffness - EENT: Denies vision changes/blurriness, tinnitus, auditory changes, rhinorrhea , congestion, sore throat, odynaphagia - CVS: Denies chest pain, palpitations. Admits to RAMSEY, orthopnea, edema, PND - Pulm: Denies hematemesis. Admits to cough with white sputum that is at baseline, wheezing - GI: Denies abdominal pain, anorexia, nausea, vomiting, diarrhea, constipation , melena - : Denies dysuria, increased frequency, urgency, hematuria, - Heme: Denies ease of bleeding or bruising - Skin: Denies rashes, ulcers, color changes, - Neuro: Denies NICE, paresthesias, focal deficits, ataxia, - Constitutional Vitals: Temp Pulse Resp BP Pulse Ox 98.1 F 80 18 120/83 92 03/07/17 00:58 03/07/17 00:58 03/07/17 00:58 03/07/17 00:58 03/07/17 00:58 Exam: Gen.: Vitals noted. No acute distress. AAOx3 HEENT: oropharynx clear, Normocephalic, atraumatic Neck: Supple. No adenopathy. Cardiac: RRR, no murmur, +S1/S2 Pulmonary: Diffuse wheezes with superimposed bibasilar crackles Abdomen: soft, nontender, BS noted, no guarding Back: Nontender throughout. Extremities: 2+ LE edema b/l Neuro: A&Ox3, moves all extremities, no focal deficits Psych: Appropriate mood and behavior Internal Med - H&P Results - Labs CBC & Chem 7: 03/07/17 01:29 03/07/17 01:29 Labs: Short CBC 03/07/17 Range/Units 01:29 WBC 10.3 (4.3-11.1) K/mcL Hgb 12.4 L (12.9-16.9) g/dL Hct 40.7 (37.5-50.1) % Plt Count 187 (140-400) K/mcL Neutrophils # 9.8 H (1.6-8.9) K/mcL BMP 03/07/17 01:29 Sodium 131 L Potassium 4.7 Chloride 93 L Carbon Dioxide 33 H BUN 22 Creatinine 0.96 Glucose 467 H Calcium 9.3 Cardiac Enzymes 03/07/17 Range/Units 01:29 Troponin I 0.13 H* (< 0.04) ng/mL Liver Function 03/07/17 Range/Units 01:29 Total Bilirubin 0.6 (0.3-1.0) mg/dL AST 16 (13-39) Units/L ALT 15 (7-52) Units/L Alkaline Phosphatase 175 H (34-104) Units/L Albumin 3.3 L (3.5-5.7) g/dL <Alex Almanzar - Last Filed: 03/07/17 06:58> Date of Encounter: 03/07/17 Internal Medicine - H&P: HPI History of present illness: Mr. Suarez is a 62 year old male All Systems PM: A 10-system review of systems was performed and is negative for pertinent findings except as documented above in the HPI. - Constitutional Vitals: Temp Pulse Resp BP Pulse Ox 98.6 F 87 18 100/70 93 03/07/17 04:00 03/07/17 04:00 03/07/17 04:02 03/07/17 04:00 03/07/17 04:02 Internal Med - H&P Results - Labs CBC & Chem 7: 03/07/17 01:29 03/07/17 01:29 Labs: Short CBC 03/07/17 Range/Units 01:29 WBC 10.3 (4.3-11.1) K/mcL Hgb 12.4 L (12.9-16.9) g/dL Hct 40.7 (37.5-50.1) % Plt Count 187 (140-400) K/mcL Neutrophils # 9.8 H (1.6-8.9) K/mcL BMP 03/07/17 01:29 Sodium 131 L Potassium 4.7 Chloride 93 L Carbon Dioxide 33 H BUN 22 Creatinine 0.96 Glucose 467 H Calcium 9.3 Cardiac Enzymes 03/07/17 Range/Units 01:29 Troponin I 0.13 H* (< 0.04) ng/mL Liver Function 03/07/17 Range/Units 01:29 Total Bilirubin 0.6 (0.3-1.0) mg/dL AST 16 (13-39) Units/L ALT 15 (7-52) Units/L Alkaline Phosphatase 175 H (34-104) Units/L Albumin 3.3 L (3.5-5.7) g/dL - Attending Attestation I have seen and examined pt independently. I have discussed with Resident physician DR Benson regarding the management plan. Agree with the documentation
[2017-03-07] MEDS: Insulin DETEMIR 100 UNIT/ML X5UNITS SQ SCH ×3 (02:52→21:57)
[2017-03-07] MEDS: Ipratropium/Albuterol Neb 3 ML IH PRN ×4 (04:02→22:19)
[2017-03-07] MEDS: *HR* Heparin 5,000 UNIT/ML VIAL SQ SCH ×2 (05:37→18:06)
[2017-03-07] MEDS ORDERED: Insulin LISPRO 300 UNITS/3 ML VIAL SQ SCH ×3 (07:30→21:00)
[2017-03-07] MEDS ORDERED: Perflutren Lipid Microsphere 1.3 ML in 0.9 % Sodium Chloride 8.7 ML IVP ONE (08:03)
--- NOTE | 2017-03-07 08:25 | Cardiology Consult Note ---
<Carlo Kaur - Last Filed: 03/07/17 15:26> Date of Encounter: 03/07/17 Time of Encounter: 09:37 Assessment and Plan (1) Acute exacerbation of CHF (congestive heart failure) Current Visit: Yes Status: Acute Patient has known systolic congestive heart failure with a left ventricular ejection fraction 35%. BNP was 1122. Initial troponin from outside facility was 0.29. Troponin here was 0.13, 0.12. Troponins are trending downward. Patient had no chest pain. Most likely an exacerbation of CHF and not NSTEMI. 2 + bilateral pitting edema, O2 sat 95% on 2 Liters of Nasal Cannula. Chest x-ray does not reveal any evidence of pleural effusions or pneumonia. New echocardiogram reveals EF of 30-35%. Clinically patient has improved with his SHERYL and lower extremity swelling has reduced some after diuresis. Refer for ICD placement for outpatient with Dr. Valerio. Continue diuresis with Lasix 40mg BID and Indapamide 2.5 mg daily per hospitalist team. Continue current medications. Monitor ins and outs. We will sign off on this patient at this time and will folow-up on a PRN basis. Qualifiers: Congestive heart failure type: systolic Qualified Code(s): I50.23 - Acute on chronic systolic (congestive) heart failure (2) Elevated troponin Current Visit: Yes Status: Acute Initial troponin was .29 at outside facility. Latest Troponin is 0.13, 0.12 respectively. Probably demand ischemia. Troponin in the past have been elevated. Patient is not currently having any chest pain, pressure, tightness. Not likely NSTEMI. Discussion w patient/family: The assessment and plan as outlined above was discussed with the patient and/or family members who expressed understanding and agreement. All questions were answered. Thank you for involving us in the care of your patient. Please call with any questions. History of Present Illness Consult date: 03/07/17 Requesting physician: Francois Benson Consult reason: CHF exacerbation Chief complaint: SOB History of present illness: Mr. Suarez is a 62 year old male past medical history of COPD, CAD with stent placement, CHF with EF of 35%, Type 2 DM for her consulted for regarding possible worsening of congestive heart failure. Patient states that he has had increasing shortness of breath over the last 3 weeks. States that he has oxygen at home, but does not normally use it. However, over the last 3 weeks she has had to use 4 L of oxygen via nasal cannula at home all the time. Patient states that he is having worsening shortness of breath on exertion, and isolated left lateral recumbent while he is sleeping. Patient is also noticed some increased swelling of the lower extremities bilaterally. Patient denies any chest pain, pressure, tightness, fever, increased sputum production. Patient continues to smoke, however, he has decreased his consumption to 4 cigarettes a day. Patient states that he does not take his plavix at least once every week. Past Med Surg Social Fam HX - Past Medical History Medical history: cardiomyopathy, CHF, COPD, coronary artery disease, diabetes, hyperlipidemia, hypertension, myocardial infarction Psychiatric history: depression - Past Surgical History Surgical History: angioplasty/stent, orthopedic, other, other - Social History Smoking Status: Current every day smoker Packs per day: 10 day Smokeless Tobacco Status: No Alcohol use: none Drug use: marijuana - Family History Mother Name: bob Hutchinson Living Status: Age at : 74 Cause of : alzheimers Medications and Allergies Aspirin 81 mg PO DAILY #30 tab 10/02/16 [Rx] Clopidogrel [Plavix] 75 mg PO DAILY #30 tab 10/02/16 [Rx] Carvedilol 12.5 mg PO BID 10/14/16 [History] Magnesium Oxide [Mag-Ox] 400 mg PO DAILY #30 tab 10/15/16 [Rx] Albuterol Sulfate [Proair Hfa] 2 puff IH Q2H PRN 10/22/16 [History] Budesonide/Formoterol 160/4.5 [Symbicort 160/4.5] 1 puff IH BIDR 10/22/16 [ History] Tiotropium [Spiriva] 18 mcg IH DAILY 10/22/16 [History] Insulin Glargine,Hum.rec.anlog [Lantus Solostar] 25 unit SQ BID #1 insuln.pen [Rx] metOLazone [Zaroxolyn] 2.5 mg PO DAILY #30 tab 10/27/16 [Rx] Insulin LISPRO [HumaLOG] See Protocol SQ TIDWM 11/24/16 [History] BuPROPion SR (12 HR) [Wellbutrin SR] 150 mg PO BID 11/25/16 [History] Glimepiride [Amaryl] 4 mg PO DAILY 11/25/16 [History] Indapamide [Lozol] 2.5 mg PO DAILY 11/25/16 [History] Nitroglycerin [Nitrostat] 0.4 mg SL Q5M PRN 11/25/16 [History] Rosuvastatin Calcium 40 mg PO DAILY 11/25/16 [History] Eszopiclone [Lunesta] 1 mg PO HS 03/07/17 [History] Furosemide [Lasix] 20 mg PO DAILY 03/07/17 [History] Metformin HCl [Glucophage] 1,000 mg PO BID 03/07/17 [History] Metoprolol Succinate 50 mg PO DAILY 03/07/17 [History] 3 Allergy/AdvReac Type Severity Reaction Status Date / Time codeine Allergy Itching, Verified 03/07/17 08:44 Rash ticagrelor [From Brilinta] Allergy See Verified 03/07/17 08:42 Comments All Systems Review: A 10-system review of systems was performed and is negative for pertinent findings except as documented above in the HPI. - Constitutional Constitutional: no chills, no fatigue, no fever(s), no weakness - Cardiovascular Cardiovascular: dyspnea at rest, dyspnea on exertion, leg edema, paroxysmal nocturnal dyspnea, no chest pain at rest, no chest pain with exertion - Gastrointestinal Gastrointestinal: no abdominal pain Physical Examination Vital Signs, Last 4 Hours Temp Pulse Resp BP Pulse Ox 03/07/17 07:31 97.6 F 82 14 104/73 95 General: Conversant, No Apparent Distress HEENT: Atraumatic, Normocephaly Neck: Normal carotid pulses Cardiac: Reg Rate and Rhythm, Other (distant heart sounds) Lungs: Other (mild wheezes on left) Neuro: Alert and responsive, No focal deficits noted Abdomen: Soft, Non-Tender Skin: No rashes noted on visualized skin Musculoskeletal: No Chest Wall Tenderness Extremities: Normal Pulses, Other (2+ pitting edema bilaterally) Results 03/07/17 01:29 03/07/17 01:29 Lab Results 03/07/17 03/07/17 03/07/17 01:29 01:29 01:29 WBC 10.3 Hgb 12.4 L Hct 40.7 Plt Count 187 Sodium 131 L Potassium 4.7 Chloride 93 L Carbon Dioxide 33 H BUN 22 Creatinine 0.96 Glucose 467 H Calcium 9.3 Total Bilirubin 0.6 AST 16 ALT 15 Alkaline Phosphatase 175 H Troponin I B-Natriuretic Peptide 1122 H 03/07/17 01:29 WBC Hgb Hct Plt Count Sodium Potassium Chloride Carbon Dioxide BUN Creatinine Glucose Calcium Total Bilirubin AST ALT Alkaline Phosphatase Troponin I 0.13 H* B-Natriuretic Peptide Consult Discharge Plan - Plan Referrals: [facility] [place],Jagdeep Jones MD [Primary Care Provider] - <Arlyn Frye - Last Filed: 03/07/17 19:50> Date of Encounter: 03/07/17 - Attending Attestation I examined this patient and my medical decision-making was reviewed with the Resident Physician. I agree with the documented findings, disposition and treatment plan. Impression: Mr. Suarez was transferred to [facility] from outside ER for worsening SOB and discovered to have RLL pneumonia. Incidentally discovered were elevated troponins - has chronic elevation of troponin. Echo demonstrates stable systolic dysfunction, EF 30-35%. Patient denies any recent chest pain. Main complaint is SOB and LE edema. Admits to medication noncompliance - says he "forgets" to take his medications sometimes for several days in a row. He intermittently takes DAPT when he remembers - had PCI with [facility] in September 2016 to LAD. Plan: 1. Acute decompensated systolic heart failure: Suspect due to medication noncompliance and poor dietary compliance. Recommend continued IV diuresis until euvolemic. 2. Ischemic Cardiomyopathy: AICD was discussed with his primary doctor of nursing practice as an outpatient. He is still contemplative but has not made a decision. He expressed understanding of the reasoning for placement. Recommend he discuss with Dr. Valerio as an outpatient. 3. Elevated troponin: Has known chronic elevation of troponins. He denies any recent chest pain. LVEF is stable without significant change from prior. No further testing is warranted at this time. His history of medication noncompliance is very concerning. I discussed this with the patient. I strongly advised him to take asa/plavix daily without interruption - I educated the patient on the risks of not being compliant including IN, . Recommend social work consult for help with medication management. No further cardiac recommendations at this time. We will sign off. Recommend follow-up with outpatient doctor of nursing practice. Assessment and Plan Discussion w patient/family: The assessment and plan as outlined above was discussed with the patient and/or family members who expressed understanding and agreement. All questions were answered. Thank you for involving us in the care of your patient. Please call with any questions. History of Present Illness History of present illness: Mr. Suarez is a 62 year old male All Systems Review: A 10-system review of systems was performed and is negative for pertinent findings except as documented above in the HPI. Physical Examination Vital Signs, Last 4 Hours Temp Pulse Resp BP Pulse Ox 03/07/17 14:59 97.6 F 78 14 97/59 91 Results 03/07/17 01:29 03/07/17 01:29 Lab Results 03/07/17 03/07/17 03/07/17 01:29 01:29 01:29 WBC 10.3 Hgb 12.4 L Hct 40.7 Plt Count 187 Sodium 131 L Potassium 4.7 Chloride 93 L Carbon Dioxide 33 H BUN 22 Creatinine 0.96 Glucose 467 H Calcium 9.3 Total Bilirubin 0.6 AST 16 ALT 15 Alkaline Phosphatase 175 H Troponin I B-Natriuretic Peptide 1122 H 03/07/17 03/07/17 03/07/17 01:29 07:32 14:15 WBC Hgb Hct Plt Count Sodium Potassium Chloride Carbon Dioxide BUN Creatinine Glucose Calcium Total Bilirubin AST ALT Alkaline Phosphatase Troponin I 0.13 H* 0.12 H* 0.11 H* B-Natriuretic Peptide
[2017-03-07] MEDS ORDERED: Furosemide 40 MG/4 ML VIAL IVP SCH (09:00)
[2017-03-07] MEDS ORDERED: *HR* Glimepiride 4 MG TABLET PO SCH (09:00)
[2017-03-07] MEDS: BuPROPion SR (12 HR) 150 MG TABLET PO SCH ×2 (09:36→21:56)
[2017-03-07] MEDS: Levofloxacin 750 MG/150 ML 750 MG/150 ML BAG IVPB SCH (09:37)
[2017-03-07] MEDS: Aspirin 81 MG TAB.CHEW PO SCH (09:37)
[2017-03-07] MEDS: Tiotropium 18 MCG inhalation IH SCH (10:32)
[2017-03-07] MEDS: Budesonide/Formoterol 160/4.5 MDI IH SCH ×2 (10:32→20:21)
--- NOTE | 2017-03-07 11:12 | Internal Med Progress Note ---
<Robert Chavez - Last Filed: 03/07/17 15:13> Date of Encounter: 03/07/17 Time of Encounter: 11:10 - Assessment and plan (1) Pneumonia Current Visit: Yes Status: Acute Assessment and plan: most quiñones multifacotrial community acquired PNA + CHF. CXR 03/07/17 - Mild bibasilar airspace disease, atelectasis is favored, less likely pneumonia. SOB continues. - continue lasix - continue Abx: levaquin - oontinue respiratory support Qualifiers: Pneumonia type: due to unspecified organism Laterality: right Lung location: lower lobe of lung Qualified Code(s): J18.1 - Lobar pneumonia, unspecified organism (2) Acute exacerbation of CHF (congestive heart failure) Current Visit: Yes Status: Acute Assessment and plan: HFrEF LVEF~30%. [place] in september. SOB most likely multi-factoral PNA and CHF. bilateral edema +2. Trop 0.12 -> 0.13. BNP 1122. on 4L at home. - continue ASA, plavix, lasix IV - continue home coreg and lisinopril - recommended smoking cessation - Cardiology consult - echo pending - strict I/O - volume restriction 1.5L, low sodium - cardiac diet Qualifiers: Congestive heart failure type: systolic Qualified Code(s): I50.23 - Acute on chronic systolic (congestive) heart failure (3) COPD (chronic obstructive pulmonary disease) Current Visit: Yes Status: Chronic Assessment and plan: Patient has diffuse wheezes but is oxygenating well. home o2 4L Continue home meds, PRN duonebs Qualifiers: COPD type: chronic bronchitis Chronic bronchitis type: simple Qualified Code(s): J41.0 - Simple chronic bronchitis (4) Tobacco abuse Current Visit: No Status: Chronic Assessment and plan: continues to smoke 1/2 pack day. recommended cessation, will follow up with PCP (5) Diabetes Current Visit: Yes Status: Chronic Assessment and plan: BG 467. increased to SSI Medium Qualifiers: Diabetes mellitus type: type 2 Diabetes mellitus complication status: with hyperglycemia Diabetes mellitus jail insulin use: with buttermaker helper use Qualified Code(s): E11.65 - Type 2 diabetes mellitus with hyperglycemia; Z79.4 - joint terminal attack controller (current) use of insulin (6) DVT prophylaxis Current Visit: Yes Status: Acute Assessment and plan: SQ heparin (7) Obesity (BMI 30.0-34.9) Current Visit: Yes Status: Acute Assessment and plan: recommended weight loss - Subjective Interval history: Mr Suarez is a 62 yo M w/ pmhx of COPD, diabetes mellitus, CHF LVEF 30%, [place], current smoker presented to [facility] with 3 week hx of worsening SOB and swelling in his legs. Today he says he's doing a lot better than he was when he came in yesterday, but continues to have SOB. He admits to PND, orthopnea, SOB at rest, and Leg swelling. Denies CP, fever, chills. - Constitutional Vitals: Temp Pulse Resp BP Pulse Ox 97.6 F 82 17 104/73 89 03/07/17 07:31 03/07/17 07:31 03/07/17 10:34 03/07/17 07:31 03/07/17 10:34 General appearance: Present: mild distress, A&O X 3, pleasant, obese - Neck Additional comments: no carotid bruits bilaterally - Respiratory Respiratory exam: Present: prolonged expiratory phase, wheezes. Absent: accessory muscle use, chest wall tenderness, decreased breath sounds, tachypnea - Cardiovascular Cardiovascular exam: Present: RRR, +S1, +S2. Absent: diastolic murmur, gallop, rubs, systolic murmur - Psychiatric Psychiatric exam: Present: normal affect, normal mood Internal Medicine: Result - Labs CBC & Chem 7: 03/07/17 01:29 03/07/17 01:29 Labs: Short CBC 03/07/17 Range/Units 01:29 WBC 10.3 (4.3-11.1) K/mcL Hgb 12.4 L (12.9-16.9) g/dL Hct 40.7 (37.5-50.1) % Plt Count 187 (140-400) K/mcL Neutrophils # 9.8 H (1.6-8.9) K/mcL BMP 03/07/17 01:29 Sodium 131 L Potassium 4.7 Chloride 93 L Carbon Dioxide 33 H BUN 22 Creatinine 0.96 Glucose 467 H Calcium 9.3 Cardiac Enzymes 03/07/17 03/07/17 Range/Units 01:29 07:32 Troponin I 0.13 H* 0.12 H* (< 0.04) ng/mL Liver Function 03/07/17 Range/Units 01:29 Total Bilirubin 0.6 (0.3-1.0) mg/dL AST 16 (13-39) Units/L ALT 15 (7-52) Units/L Alkaline Phosphatase 175 H (34-104) Units/L Albumin 3.3 L (3.5-5.7) g/dL - Impressions Impressions Chest X-Ray 03/07/17 09:34 IMPRESSION: Mild bibasilar airspace disease, atelectasis is favored, less likely pneumonia. D/ / Nir Clinton MD / Nir Clinton MD Interpreting Provider: Nir Clinton MD Consult Discharge Plan - Plan Referrals: Jagdeep Rodriguez MD [Primary Care Provider] - <Griffin Mitchell - Last Filed: 03/07/17 18:23> Date of Encounter: 03/07/17 - Constitutional Vitals: Temp Pulse Resp BP Pulse Ox 97.6 F 78 14 97/59 91 03/07/17 14:59 03/07/17 14:59 03/07/17 14:59 03/07/17 14:59 03/07/17 14:59 Internal Medicine: Result - Labs CBC & Chem 7: 03/07/17 01:29 03/07/17 01:29 Labs: Short CBC 03/07/17 Range/Units 01:29 WBC 10.3 (4.3-11.1) K/mcL Hgb 12.4 L (12.9-16.9) g/dL Hct 40.7 (37.5-50.1) % Plt Count 187 (140-400) K/mcL Neutrophils # 9.8 H (1.6-8.9) K/mcL BMP 03/07/17 01:29 Sodium 131 L Potassium 4.7 Chloride 93 L Carbon Dioxide 33 H BUN 22 Creatinine 0.96 Glucose 467 H Calcium 9.3 Cardiac Enzymes 03/07/17 03/07/17 03/07/17 Range/Units 01:29 07:32 14:15 Troponin I 0.13 H* 0.12 H* 0.11 H* (< 0.04) ng/mL Liver Function 03/07/17 Range/Units 01:29 Total Bilirubin 0.6 (0.3-1.0) mg/dL AST 16 (13-39) Units/L ALT 15 (7-52) Units/L Alkaline Phosphatase 175 H (34-104) Units/L Albumin 3.3 L (3.5-5.7) g/dL - Impressions Impressions Echocardiogram Limited Views 03/07/17 02:35 Impressions: LVEF 30-35%. Global left ventricular systolic dysfunction with regional variations. No LV thrombus identifed. Left Ventricular Wall Motion: Rest Echo Findings The apex, apical inferior, mid inferior, basal inferior, apical anterior, mid anterior, basal anterior, apical septal, mid inferior septal, basal inferior septal, apical lateral, mid anterior lateral, basal anterior lateral, mid anterior septal, mid inferior lateral, basal anterior septal and basal inferior lateral meza were hypokinetic. Findings: Study Quality * Technically adequate exam. ECG Findings * Normal sinus rhythm. Left Ventricle * LVEF 30-35%. * Global left ventricular systolic dysfunction with regional variations. * No LV thrombus identifed. Left Atrium * Severely dilated left atrium. Aorta * Normally sized aortic root. Pericardium * The pericardium appears normal. IVC * The IVC is dilated. * < 50% respiratory change. Chest X-Ray 03/07/17 09:34 IMPRESSION: Mild bibasilar airspace disease, atelectasis is favored, less likely pneumonia. D/ / Nir Clinton MD / Nir Clinton MD Interpreting Provider: Nir Clinton MD - Attending Attestation I examined this patient and my medical decision-making was reviewed with the Resident Physician on 03/07/17. I agree with the documented findings, disposition and treatment plan as described except to the extent set forth below. Mr Suarez was admitted earlier today with acute exac CHF. He is feeling somewhat better at this time. Exam alert. Comfortable Heart reg I/P 1. Exac CHF Agree with current management plan
[2017-03-07] MEDS: Insulin LISPRO 300 UNITS/3 ML VIAL SQ SCH ×3 (12:04→22:18)
[2017-03-07] MEDS: Furosemide 40 MG/4 ML VIAL IVP SCH (18:06)
[2017-03-08 04:41] LABS: Basophils % 0.1 %; Eosinophils % 0.2 %; Hematocrit 38.3 % (37.5-50.1); Hemoglobin 11.8 g/dL (12.9-16.9); Immature Granulocytes % 0.4 % (0-4); Lymphocytes # 1.6 K/mcL (0.6-4.6); Lymphocytes % 11.2 %; Mean Corpuscular HGB Conc 30.8 g/dL (31.6-35.5); Mean Corpuscular Volume 84.4 fL (83.0-100.0); Mean Platelet Volume 12.4 fL (9.4-12.4); Monocytes % 6.8 %; Neutrophils # 11.5 K/mcL (1.6-8.9); Platelet Count 192 K/mcL (140-400); Red Blood Count 4.54 M/mcL (4.19-5.50); Red Cell Distribution Width 16.1 % (11.5-14.5); Segmented Neutrophils % 81.3 %
[2017-03-08 05:07] LABS: BUN/Creatinine Ratio 34 (6-26); Blood Urea Nitrogen 42 mg/dL (8-23); Calcium 9.2 mg/dL (8.6-10.3); Carbon Dioxide 36 mEq/L (23-29); Chloride 95 mEq/L (98-107); Glucose 236 mg/dL (70-105); Osmolality,Calculated 298 (280-300); Potassium 4.1 mEq/L (3.5-5.1); Sodium 135 mEq/L (136-145); eGFR For African Americans > 60 (> 60); eGFR For Non-African Americans 58 (> 60)
[2017-03-08] MEDS: *HR* Heparin 5,000 UNIT/ML VIAL SQ SCH ×2 (05:11→17:26)
[2017-03-08] MEDS: Budesonide/Formoterol 160/4.5 MDI IH SCH ×2 (10:22→20:28)
[2017-03-08] MEDS: Tiotropium 18 MCG inhalation IH SCH (10:22)
[2017-03-08] MEDS: BuPROPion SR (12 HR) 150 MG TABLET PO SCH ×2 (10:32→22:14)
[2017-03-08] MEDS: Aspirin 81 MG TAB.CHEW PO SCH (10:32)
[2017-03-08] MEDS: Insulin LISPRO 300 UNITS/3 ML VIAL SQ SCH ×4 (10:34→22:15)
[2017-03-08] MEDS: Insulin DETEMIR 100 UNIT/ML X5UNITS SQ SCH ×2 (10:35→22:14)
[2017-03-08] MEDS: Levofloxacin 750 MG/150 ML 750 MG/150 ML BAG IVPB SCH (10:35)
[2017-03-08] MEDS: Furosemide 40 MG/4 ML VIAL IVP SCH ×2 (12:21→17:26)
--- NOTE | 2017-03-08 12:26 | Internal Med Progress Note ---
Date of Encounter: 03/08/17 Time of Encounter: 11:45 - Assessment and plan (1) Acute and chronic respiratory failure with hypoxia Current Visit: No Status: Acute Assessment and plan: Pt on home oxygen at 4 liters and requiring up to 5 liters here Will wean back to home levels as able. (2) Acute exacerbation of CHF (congestive heart failure) Current Visit: Yes Status: Acute Assessment and plan: HFrEF LVEF~30%. [place] in september. SOB most likely multi-factoral PNA and CHF. bilateral edema +2. Trop 0.12 -> 0.13. BNP 1122. on 4L at home. - continue ASA, plavix, lasix IV - continue home coreg and lisinopril - recommended smoking cessation - appreciate cardiology input - EF about the same on echo - continue medical management. AICD has been recommended Qualifiers: Congestive heart failure type: systolic Qualified Code(s): I50.23 - Acute on chronic systolic (congestive) heart failure (3) Pneumonia Current Visit: Yes Status: Suspected Assessment and plan: most likley multifacotrial community acquired PNA + CHF. CXR 03/07/17 - Mild bibasilar airspace disease, atelectasis is favored, less likely pneumonia. SOB continues. - Continue abx treatment for now - WBC higher today. Will recheck tomorrow. Qualifiers: Pneumonia type: due to Pseudomonas Laterality: right Lung location: lower lobe of lung Qualified Code(s): J15.1 - Pneumonia due to Pseudomonas (4) Ischemic cardiomyopathy Current Visit: No Status: Chronic Assessment and plan: Chronic issue (5) Diabetes Current Visit: Yes Status: Chronic Assessment and plan: Diet adjusted yesterday and sugars are doing better. Continue to follow sugars and cover. Qualifiers: Diabetes mellitus type: type 2 Diabetes mellitus complication status: with hyperglycemia Diabetes mellitus terminal operations manager insulin use: with prison use Qualified Code(s): E11.65 - Type 2 diabetes mellitus with hyperglycemia; Z79.4 - termite control servicer (current) use of insulin (6) COPD (chronic obstructive pulmonary disease) Current Visit: Yes Status: Chronic Assessment and plan: Chronic issue Continue aerosols and supportive care. Qualifiers: COPD type: chronic bronchitis Chronic bronchitis type: simple Qualified Code(s): J41.0 - Simple chronic bronchitis (7) Essential hypertension Current Visit: No Status: Chronic Assessment and plan: Chronic issue (8) Tobacco abuse Current Visit: No Status: Chronic Assessment and plan: continues to smoke 1/2 pack day. recommended cessation, will follow up with PCP - Subjective Interval history: Mr Suarez is currently admitted for acute resp failure and CHF and pneumonia. He remains moderate to high risk due to potential for worsening clinical status. Mr Suarez is beginning to feels somewhat better. No fever. Has been up walking some. Less dyspneic today but still edematous. Bowels OK. - Constitutional Vitals: Temp Pulse Resp BP Pulse Ox 98.1 F 72 14 102/55 94 03/08/17 11:45 03/08/17 11:45 03/08/17 11:45 03/08/17 11:45 03/08/17 11:45 General appearance: Present: A&O X 3, pleasant, obese - Head Head exam: Present: normocephalic - Eye Eye exam: Present: EOMI, conjuntiva pink - ENT ENT exam: Present: mucous membranes moist - Respiratory Respiratory exam: Present: decreased breath sounds, rales Additional comments: Bibasilar rales noted. - Cardiovascular Cardiovascular exam: Present: RRR. Absent: tachycardia - GI/Abdominal GI/Abdominal exam: Present: soft. Absent: tenderness - Extremities Exam Extremities exam: Present: pedal edema, warm. Absent: tenderness - Neurological Exam Neurological exam: Present: alert, oriented X3, no focal deficits - Skin Skin exam: Present: dry, warm. Absent: rash Internal Medicine: Result - Labs CBC & Chem 7: 03/08/17 04:00 03/08/17 04:00 Labs: Short CBC 03/08/17 Range/Units 04:00 WBC 14.2 H (4.3-11.1) K/mcL Hgb 11.8 L (12.9-16.9) g/dL Hct 38.3 (37.5-50.1) % Plt Count 192 (140-400) K/mcL Neutrophils # 11.5 H (1.6-8.9) K/mcL BMP 03/08/17 04:00 Sodium 135 L Potassium 4.1 Chloride 95 L Carbon Dioxide 36 H BUN 42 H Creatinine 1.25 Glucose 236 H Calcium 9.2 Cardiac Enzymes 03/07/17 Range/Units 14:15 Troponin I 0.11 H* (< 0.04) ng/mL Consult Discharge Plan - Plan Referrals: Jagdeep Rodriguez MD [Primary Care Provider] -
[2017-03-08] MEDS: Ipratropium/Albuterol Neb 3 ML IH PRN (20:28)
[2017-03-08] MEDS ORDERED: 0.9 % Sodium Chloride 250 ML IVC ONE (21:53)
[2017-03-09 06:03] LABS: Hemoglobin 11.9 g/dL (12.9-16.9); Mean Corpuscular HGB Conc 31.3 g/dL (31.6-35.5); Mean Corpuscular Hemoglobin 26.5 pg (28.0-33.3); Mean Corpuscular Volume 84.6 fL (83.0-100.0); Mean Platelet Volume 12.2 fL (9.4-12.4); Platelet Count 159 K/mcL (140-400); Red Blood Count 4.49 M/mcL (4.19-5.50); Red Cell Distribution Width 16.2 % (11.5-14.5)
[2017-03-09] MEDS: *HR* Heparin 5,000 UNIT/ML VIAL SQ SCH ×2 (06:06→16:56)
[2017-03-09 06:20] LABS: BUN/Creatinine Ratio 37 (6-26); Blood Urea Nitrogen 49 mg/dL (8-23); Calcium 8.8 mg/dL (8.6-10.3); Carbon Dioxide 37 mEq/L (23-29); Chloride 97 mEq/L (98-107); Glucose 245 mg/dL (70-105); Magnesium 1.7 mg/dL (1.6-2.6); Osmolality,Calculated 305 (280-300); Potassium 3.9 mEq/L (3.5-5.1); Sodium 137 mEq/L (136-145); eGFR For African Americans > 60 (> 60); eGFR For Non-African Americans 54 (> 60)
[2017-03-09] MEDS: Magnesium Oxide 400 MG TABLET PO SCH (08:29)
[2017-03-09] MEDS: Levofloxacin 750 MG/150 ML 750 MG/150 ML BAG IVPB SCH (08:29)
[2017-03-09] MEDS: Aspirin 81 MG TAB.CHEW PO SCH (08:29)
[2017-03-09] MEDS: BuPROPion SR (12 HR) 150 MG TABLET PO SCH ×2 (08:29→21:33)
[2017-03-09] MEDS: Insulin LISPRO 300 UNITS/3 ML VIAL SQ SCH ×4 (08:30→21:34)
[2017-03-09] MEDS: Insulin DETEMIR 100 UNIT/ML X5UNITS SQ SCH ×2 (09:27→21:33)
[2017-03-09] MEDS: Ipratropium/Albuterol Neb 3 ML IH PRN ×2 (10:51→22:10)
[2017-03-09] MEDS: Budesonide/Formoterol 160/4.5 MDI IH SCH ×2 (10:51→22:10)
[2017-03-09] MEDS: Tiotropium 18 MCG inhalation IH SCH (10:52)
--- NOTE | 2017-03-09 12:28 | Event Note ---
Date of Encounter: 03/09/17 Time of Encounter: 12:30 - Cardiology Event Note Selected Entries 03/09/17 03:52 03/09/17 07:36 03/09/17 11:52 Blood Pressure 127/74 116/49 98/63 Laboratory Tests 03/09/17 05:27 Potassium 3.9 Magnesium 1.7 Asked to evaluate patient due to concerns of nonsustained VT. Previous records reviewed. 24 hr telemetry reviewed with no significant sustained VT noted, having frequent PVCs and bigeminy. Has known low EF and currently contemplating outpatient ICD evaluation/insertion. Per review of records, Coreg 6.25mg PO BID and lisinopril 5mg PO daily held yesterday, patient did receive Coreg last night and this morning. Received lisinopril this morning. Current systolic blood pressure now 98, was 120's. Will discontinue SHAWN inhibitor for now. Will DC coreg and switch to Toprol XL-- will dose 12.5mg PO BID. Hold if SBP less than 90mmHg. Recommend titrate BB as able. Monitor tele. K+ stable, Mg 1.7-- 2 gram rider given. Discussed with Dr. Frye. Discussed with primary service, re- consult PRN.
--- NOTE | 2017-03-09 17:55 | Internal Med Progress Note ---
Date of Encounter: 03/09/17 Time of Encounter: 15:00 - Assessment and plan (1) Nonsustained ventricular tachycardia Current Visit: Yes Status: Acute Assessment and plan: Pt agreeable to AICD at this time. (2) Acute and chronic respiratory failure with hypoxia Current Visit: No Status: Acute Assessment and plan: Weaning back to home levels as able. (3) Acute exacerbation of CHF (congestive heart failure) Current Visit: Yes Status: Acute Assessment and plan: HFrEF LVEF~30%. MO in september. SOB most likely multi-factoral PNA and CHF. bilateral edema +2. Trop 0.12 -> 0.13. BNP 1122. on 4L at home. - continue ASA, plavix, lasix IV - continue home coreg and lisinopril - recommended smoking cessation - appreciate cardiology input - EF about the same on echo - continue medical management. Pt agreeable to AICD. NPO tonight. Qualifiers: Congestive heart failure type: systolic Qualified Code(s): I50.23 - Acute on chronic systolic (congestive) heart failure (4) Pneumonia Current Visit: Yes Status: Suspected Assessment and plan: most likley multifacotrial community acquired PNA + CHF. CXR 03/07/17 - Mild bibasilar airspace disease, atelectasis is favored, less likely pneumonia. SOB continues. - Continue abx treatment for now - WBC improved today. Qualifiers: Pneumonia type: due to Pseudomonas Laterality: right Lung location: lower lobe of lung Qualified Code(s): J15.1 - Pneumonia due to Pseudomonas (5) Ischemic cardiomyopathy Current Visit: No Status: Chronic Assessment and plan: Chronic issue (6) Diabetes Current Visit: Yes Status: Chronic Assessment and plan: Diet adjusted yesterday and sugars are doing better. Continue to follow sugars and cover. 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 Qualifiers: COPD type: chronic bronchitis Chronic bronchitis type: simple Qualified Code(s): J41.0 - Simple chronic bronchitis (8) Essential hypertension Current Visit: No Status: Chronic Assessment and plan: Chronic issue (9) Tobacco abuse Current Visit: No Status: Chronic Assessment and plan: continues to smoke 1/2 pack day. recommended cessation, will follow up with PCP - Subjective Interval history: Mr Suarez is currently admitted for acute resp failure and CHF and pneumonia. He remains moderate to high risk due to potential for worsening clinical status. Mr Suarez had episode of nonsustained VT last night. Breathing better today. Has been up walking in halls. No fever. No CP. Discussed with patient and - need for AICD. He is in agreement at this time. - Constitutional Vitals: Temp Pulse Resp BP Pulse Ox 98.1 F 70 14 98/63 98 03/09/17 11:52 03/09/17 11:52 03/09/17 11:52 03/09/17 11:52 03/09/17 11:52 General appearance: Present: A&O X 3, pleasant, obese, answers questions appropriately - Head Head exam: Present: atraumatic, normocephalic - Eye Eye exam: Present: EOMI, conjuntiva pink - ENT ENT exam: Present: mucous membranes dry - Respiratory Respiratory exam: Present: decreased breath sounds, rales - Cardiovascular Cardiovascular exam: Present: RRR. Absent: tachycardia - GI/Abdominal GI/Abdominal exam: Present: soft. Absent: tenderness - Extremities Exam Extremities exam: Present: pedal edema, warm. Absent: tenderness - Neurological Exam Neurological exam: Present: alert, oriented X3, no focal deficits - Skin Skin exam: Present: dry, warm. Absent: rash Internal Medicine: Result - Labs CBC & Chem 7: 03/09/17 05:27 03/09/17 05:27 Labs: Short CBC 03/09/17 Range/Units 05:27 WBC 9.1 (4.3-11.1) K/mcL Hgb 11.9 L (12.9-16.9) g/dL Hct 38.0 (37.5-50.1) % Plt Count 159 (140-400) K/mcL BMP 03/08/17 03/09/17 20:07 05:27 Sodium 137 137 Potassium 4.0 3.9 Chloride 94 L 97 L Carbon Dioxide 37 H 37 H BUN 49 H 49 H Creatinine 1.81 H 1.33 H Glucose 251 H 245 H Calcium 9.0 8.8 Consult Discharge Plan - Plan Referrals: Jagdeep Rodriguez MD [Primary Care Provider] -
[2017-03-09] MEDS: Metoprolol XL (24 HR) Succ 25 MG TAB.ER.24H PO SCH (21:33)
[2017-03-10] MEDS: *HR* Heparin 5,000 UNIT/ML VIAL SQ SCH (05:17)
[2017-03-10 05:35] LABS: BUN/Creatinine Ratio 38 (6-26); Blood Urea Nitrogen 48 mg/dL (8-23); Calcium 8.7 mg/dL (8.6-10.3); Carbon Dioxide 35 mEq/L (23-29); Chloride 98 mEq/L (98-107); Glucose 279 mg/dL (70-105); Osmolality,Calculated 303 (280-300); Potassium 4.3 mEq/L (3.5-5.1); Sodium 135 mEq/L (136-145); eGFR For African Americans > 60 (> 60); eGFR For Non-African Americans 57 (> 60)
[2017-03-10 05:36] LABS: Hematocrit 38.7 % (37.5-50.1); Hemoglobin 11.7 g/dL (12.9-16.9); Mean Corpuscular HGB Conc 30.2 g/dL (31.6-35.5); Mean Corpuscular Hemoglobin 25.9 pg (28.0-33.3); Mean Corpuscular Volume 85.8 fL (83.0-100.0); Mean Platelet Volume 12.7 fL (9.4-12.4); Platelet Count 151 K/mcL (140-400); Red Blood Count 4.51 M/mcL (4.19-5.50); Red Cell Distribution Width 15.9 % (11.5-14.5)
[2017-03-10] MEDS: Budesonide/Formoterol 160/4.5 MDI IH SCH (07:50)
[2017-03-10] MEDS: Ipratropium/Albuterol Neb 3 ML IH PRN (07:50)
[2017-03-10] MEDS: Tiotropium 18 MCG inhalation IH SCH (08:00)
[2017-03-10] MEDS: Magnesium Oxide 400 MG TABLET PO SCH (09:09)
[2017-03-10] MEDS: Metoprolol XL (24 HR) Succ 25 MG TAB.ER.24H PO SCH (09:09)
[2017-03-10] MEDS: BuPROPion SR (12 HR) 150 MG TABLET PO SCH (09:09)
[2017-03-10] MEDS: Levofloxacin 750 MG/150 ML 750 MG/150 ML BAG IVPB SCH (09:10)
[2017-03-10] MEDS: Aspirin 81 MG TAB.CHEW PO SCH (09:10)
[2017-03-10] MEDS: Insulin DETEMIR 100 UNIT/ML X5UNITS SQ SCH (09:10)
[2017-03-10] MEDS: Insulin LISPRO 300 UNITS/3 ML VIAL SQ SCH ×2 (09:11→12:24)
[2017-03-10 10:47] VITALS: BP 108/54
--- NOTE | 2017-03-10 11:29 | Cardiology Progress Note ---
Date of Encounter: 03/10/17 Time of Encounter: 09:30 Assessment and Plan (1) Acute exacerbation of CHF (congestive heart failure) Current Visit: Yes Status: Acute Per Cardiology: Patient has known systolic congestive heart failure with a left ventricular ejection fraction 35%. New echocardiogram reveals EF of 30-35%. NET I&O - 3567ml. Clinically appears improved-- sleeping flat this am. Patient discussed and reviewed this morning with Dr. Jagdeep Hernandez potential for ICD insertion. Recommendations for outpatient follow-up, evaluation, and coordination if appropriate in outpatient setting in the next few weeks. Patient verbalized understanding and agreed with plan. Qualifiers: Congestive heart failure type: systolic Qualified Code(s): I50.23 - Acute on chronic systolic (congestive) heart failure (2) Nonsustained ventricular tachycardia Current Visit: Yes Status: Acute Per Cardiology: No significant events noted on telemetry. Occasional bigeminy episodes. Potassium and magnesium stable. Now actually receiving beta carmela regularly and systolic blood pressures now 100s to 110s. Titrate beta carmela as able and as needed. Cardiology will sign off, reconsult as needed, f/u arranged. Discussion w patient/family: The assessment and plan as outlined above was discussed with the patient who expressed understanding and agreement. All questions were answered. Thank you for involving us in the care of your patient. Please call with any questions. Subjective Principal diagnosis: PVCs, CMP Interval history: Patient denies any chest pain, shortness of breath, palpitations. He reports interest in possibly proceeding with ICD insertion. Objective Vital Signs, Last 4 Hours Temp Pulse Resp BP Pulse Ox 03/10/17 10:42 97.8 F 73 14 108/54 96 03/10/17 07:53 16 96 General: Conversant, No Apparent Distress HEENT: Atraumatic, Normocephaly, Mucus Membranes Moist Neck: No JVD, Normal carotid pulses Cardiac: Reg Rate and Rhythm, Normal S1 and S2, No Murmur Lungs: Normal Breath Sounds, No Wheeze, Rales, Rhonchi Neuro: Alert and responsive, No focal deficits noted Abdomen: Soft, Non-Tender Skin: No rashes noted on visualized skin Musculoskeletal: No Chest Wall Tenderness Extremities: No Clubbing, No Cyanosis, Normal Pulses, Other (Trace nonpitting bilateral lower extremity edema) Results 03/10/17 04:35 03/10/17 04:35 Lab Results Laboratory Tests 03/10/17 04:35 Potassium 4.3 Intake & Output 03/07/17 03/08/17 03/09/17 03/10/17 23:59 23:59 23:59 23:59 Intake Total 598 / 598 630 / 630 630 / 630 0 / 0 Output Total 2675 / 2675 700 / 700 1250 / 1250 800 / 800 Balance -2077 / -2077 -70 / -70 -620 / -620 -800 / -800 Weight 103.4 kg 101.2 kg 103.4 kg Active Medications Albuterol/Ipratropium (Duoneb) 3 ml IH [id number] PRN PRN Reason: Shortness Of Breath/Wheezing Stop: 09/06/17 02:07 Last Admin: 03/10/17 07:50 Dose: 3 ml Aspirin (Aspirin) 81 mg PO DAILY [facility] Stop: 09/06/17 09:01 Last Admin: 03/10/17 09:10 Dose: 81 mg Budesonide/Formoterol Fumarate (Symbicort) 1 puff IH BIDR [facility] PRN Reason: Protocol Stop: 09/06/17 10:01 Last Admin: 03/10/17 07:50 Dose: 1 puff Bupropion HCl (Wellbutrin Sr) 150 mg PO BID [facility] Stop: 09/06/17 09:01 Last Admin: 03/10/17 09:09 Dose: 150 mg Clopidogrel Bisulfate (Plavix) 75 mg PO DAILY [facility] Stop: 09/06/17 09:01 Last Admin: 03/10/17 09:10 Dose: 75 mg Dextrose/Water (Dextrose 50% (Syg)) 25 ml IVP AD PRN PRN Reason: Hypoglycemia Stop: 09/06/17 11:53 Glucagon (Glucagen) 1 mg IM ONCE PRN PRN Reason: Hypoglycemia Stop: 09/06/17 11:53 Glucose (Gluctose) 15 gm PO ONCE PRN PRN Reason: Hypoglycemia Stop: 09/06/17 11:53 Glucose (Gluctose) 30 gm PO ONCE PRN PRN Reason: Hypoglycemia Stop: 09/06/17 11:53 Heparin Sodium (Porcine) (Heparin) 5,000 unit SQ Q12HCO [facility] Stop: 09/06/17 06:01 Last Admin: 03/10/17 05:17 Dose: 5,000 unit Levofloxacin/Dextrose (Levaquin Premix 750mg/150 Ml) 750 mg in 150 mls @ 100 mls/hr IVPB DAILY [facility] PRN Reason: Protocol Stop: 09/06/17 09:01 Last Admin: 03/10/17 09:10 Dose: 100 mls/hr Dextrose (Dextrose 5%) 1,000 mls @ 100 mls/hr IVC .Q10H PRN PRN Reason: HYPOGLYCEMIA Stop: 09/06/17 11:53 Insulin Detemir (Levemir) 30 unit SQ BID [facility] Stop: 09/06/17 21:01 Last Admin: 03/10/17 09:10 Dose: 30 unit Insulin Human Lispro (Humalog) 0 units SQ TIDAC [facility] PRN Reason: Protocol Stop: 09/07/17 07:31 Last Admin: 03/10/17 09:11 Dose: 10 units Insulin Human Lispro (Humalog) 0 units SQ HS [facility] PRN Reason: Protocol Stop: 09/06/17 21:01 Last Admin: 03/09/17 21:34 Dose: 4 units Magnesium Oxide (Mag-Ox) 400 mg PO DAILY [facility] PRN Reason: Protocol Stop: 09/08/17 09:01 Last Admin: 03/10/17 09:09 Dose: 400 mg Metoprolol Succinate (Toprol Xl) 12.5 mg PO BID [facility] Stop: 09/08/17 21:01 Last Admin: 03/10/17 09:09 Dose: 12.5 mg Naloxone HCl (Narcan) 0.4 mg IVP Q2MIN PRN PRN Reason: Opioid Reversal Stop: 09/06/17 01:14 Rosuvastatin Calcium (Crestor) 40 mg PO DAILY [facility] Stop: 09/06/17 09:01 Last Admin: 03/10/17 09:10 Dose: 40 mg Tiotropium Kincaid (Spiriva) 18 mcg IH DAILY [facility] Stop: 09/06/17 09:01 Last Admin: 03/10/17 08:00 Dose: Not Given - EKG Interpretation EKG results cardiology: other (Telemetry reviewed with average heart rate the past 12 hours 77, SR, occasional bigeminy, no noted VT) Consult Discharge Plan - Plan Referrals: Jennifer,Jagdeep Jones MD [Primary Care Provider] -
--- NOTE | 2017-03-10 13:51 | Discharge Summary ---
<Robert Chavez - Last Filed: 03/10/17 13:48> Date of Encounter: 03/10/17 Time of Encounter: 13:48 - Discharge Diagnosis (1) Pneumonia Priority: Secondary Status: Suspected Qualifiers: Pneumonia type: due to Pseudomonas Laterality: right Lung location: lower lobe of lung Qualified Code(s): J15.1 - Pneumonia due to Pseudomonas (2) Acute exacerbation of CHF (congestive heart failure) Priority: Primary Status: Acute Qualifiers: Congestive heart failure type: systolic Qualified Code(s): I50.23 - Acute on chronic systolic (congestive) heart failure (3) COPD (chronic obstructive pulmonary disease) Priority: Secondary Status: Chronic Qualifiers: COPD type: chronic bronchitis Chronic bronchitis type: simple Qualified Code(s): J41.0 - Simple chronic bronchitis (4) Tobacco abuse Priority: Secondary Status: Chronic (5) Diabetes Priority: Secondary Status: Chronic Qualifiers: Diabetes mellitus type: type 2 Diabetes mellitus complication status: with hyperglycemia Diabetes mellitus termite helper insulin use: with detention use Qualified Code(s): E11.65 - Type 2 diabetes mellitus with hyperglycemia; Z79.4 - correction (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) use of insulin (6) DVT prophylaxis Priority: Secondary Status: Acute (7) Obesity (BMI 30.0-34.9) Priority: Secondary Status: Acute - Discharge Medications Home Medications: Aspirin 81 mg PO DAILY #30 tab 10/02/16 [Rx] Clopidogrel [Plavix] 75 mg PO DAILY #30 tab 10/02/16 [Rx] Carvedilol 12.5 mg PO BID 10/14/16 [History] Magnesium Oxide [Mag-Ox] 400 mg PO DAILY #30 tab 10/15/16 [Rx] Albuterol Sulfate [Proair Hfa] 2 puff IH Q2H PRN 10/22/16 [History] Budesonide/Formoterol 160/4.5 [Symbicort 160/4.5] 1 puff IH BIDR 10/22/16 [ History] Tiotropium [Spiriva] 18 mcg IH DAILY 10/22/16 [History] Insulin Glargine,Hum.rec.anlog [Lantus Solostar] 25 unit SQ BID #1 insuln.pen [Rx] metOLazone [Zaroxolyn] 2.5 mg PO DAILY #30 tab 10/27/16 [Rx] Insulin LISPRO [HumaLOG] See Protocol SQ TIDWM 11/24/16 [History] BuPROPion SR (12 HR) [Wellbutrin SR] 150 mg PO BID 11/25/16 [History] Glimepiride [Amaryl] 4 mg PO DAILY 11/25/16 [History] Indapamide [Lozol] 2.5 mg PO DAILY 11/25/16 [History] Nitroglycerin [Nitrostat] 0.4 mg SL Q5M PRN 11/25/16 [History] Rosuvastatin Calcium 40 mg PO DAILY 11/25/16 [History] Eszopiclone [Lunesta] 1 mg PO HS 03/07/17 [History] Furosemide [Lasix] 20 mg PO DAILY 03/07/17 [History] Metformin HCl [Glucophage] 1,000 mg PO BID 03/07/17 [History] Metoprolol Succinate 50 mg PO DAILY 03/07/17 [History] Allergies/Adverse Reactions: 3 Allergy/AdvReac Type Severity Reaction Status Date / Time codeine Allergy Itching, Verified 03/07/17 08:44 Rash ticagrelor [From Brilinta] Allergy See Verified 03/07/17 08:42 Comments Procedures/tests Complete & Pending: Procedures Performed prior 72 hours Category Date Time Status ECG 12 lead ECG [ECG] Routine Y 03/08/17 21:11 Completed EKG [ECG 12 lead ECG] [ECG] Stat Y 03/08/17 20:45 Completed Date of admission: 03/07/17 00:13 Primary care physician: Jagdeep Rodriguez MD Consults: 03/07/17 02:10 Consult to Cardiology [CONS] Routine Comment: Consulting Provider: Cardiology Deanna Reason for Consult: CHF Call Completed: No - Patient Status Disposition: Home, Self-Care Condition: Good Overall status at discharge: patient is progressing back to baseline - Discharge Instructions Instructions: Heart Failure (DC), Chest Pain (DC), Diabetes Mellitus Type 2 in Adults (DC), Chronic Obstructive Pulmonary Disease (DC), Cigarette Smoking and Your Health, 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 Suarez is a 62 year old male Mr Suarez 62 yo M w/ pmhx of COPD, diabetes mellitus, CHF LVEF 30%, [place], current smoker presented to [facility] with 3 week hx of worsening SOB, swelling in his legs, PND, orthopnea, SOB at rest. An CXR was ordered in the ED, which showed mild bibasilar airspace disease. Due to patient's hx of heart disease patient was concurrently treated for PNA and exacerbation of CHF. Patient's last MN was in September, which was his last echo, at that time LVEF ~30%. Repeated echo was performed, and LVEF remained 3-0-35% Patient remained afebrile, controlled HR, RR, and BP during hospitalization but did initially have an elevated WBC 14.2. Trop 0.13 -> 0.12 -> 0.11, BNP 1122. Patient was started on O2 NC, ceftriaxone, Levaquin, provided respiratory support, lasix, ASA, and plavix. Patient clinically improved through out hospitalization, and discharged on 4th day of hospitalization. Due to suspected worsening of CHF, patient will need AICD placement evaluation with Dr. Jagdeep Hernandez, EP, outpatient. Patient to have follow up with PCP within 1 week. Patient educated on the benefits smoking cessation, low salt diet, water restriction to 1.5-2L a day, and medication compliance. During his hospitalization his BG was found to be 467 and he was started on SSI which was eventually increased to medium dosing. Time spent discussing smoking cessation with patient: more than 10 minutes - Time Spent with Patient Total time spent providing and/or coordinating discharge services: Greater than 30 minutes - Constitutional Vitals: Temp Pulse Resp BP Pulse Ox 97.8 F 73 14 108/54 96 03/10/17 10:42 03/10/17 10:42 03/10/17 10:42 03/10/17 10:42 03/10/17 10:42 General appearance: Present: A&O X 3, pleasant, obese, answers questions appropriately - Respiratory Respiratory exam: Present: CTAB, prolonged expiratory phase - Cardiovascular Cardiovascular exam: Present: RRR. Absent: JVD - Psychiatric Psychiatric exam: Present: normal affect, normal mood <Stephen,Griffin A - Last Filed: 03/10/17 19:06> Date of Encounter: 03/10/17 - Discharge Diagnosis (1) Acute and chronic respiratory failure with hypoxia Priority: Primary Status: Acute (2) Acute exacerbation of CHF (congestive heart failure) Status: Acute Qualifiers: Congestive heart failure type: systolic Qualified Code(s): I50.23 - Acute on chronic systolic (congestive) heart failure (3) Nonsustained ventricular tachycardia Priority: Secondary Status: Acute (4) Pneumonia Status: Suspected Qualifiers: Pneumonia type: due to Pseudomonas Laterality: right Lung location: lower lobe of lung Qualified Code(s): J15.1 - Pneumonia due to Pseudomonas (5) Ischemic cardiomyopathy Priority: Secondary Status: Chronic (6) Diabetes Status: Chronic Qualifiers: Diabetes mellitus type: type 2 Diabetes mellitus complication status: with hyperglycemia Diabetes mellitus detention insulin use: with detention use Qualified Code(s): E11.65 - Type 2 diabetes mellitus with hyperglycemia; Z79.4 - correction (current) use of insulin (7) COPD (chronic obstructive pulmonary disease) Status: Chronic Qualifiers: COPD type: chronic bronchitis Chronic bronchitis type: simple Qualified Code(s): J41.0 - Simple chronic bronchitis (8) Essential hypertension Priority: Secondary Status: Chronic (9) Tobacco abuse Status: Chronic Procedures/tests Complete & Pending: Procedures Performed prior 72 hours Category Date Time Status ECG 12 lead ECG [ECG] Routine Y 03/08/17 21:11 Completed EKG [ECG 12 lead ECG] [ECG] Stat Y 03/08/17 20:45 Completed Date of admission: 03/07/17 00:13 Primary care physician: Jagdeep Rodriguez MD Consults: 03/07/17 02:10 Consult to Cardiology [CONS] Routine Comment: Consulting Provider: Cardiology Deanna Reason for Consult: CHF Call Completed: No Hospital course: Mr. Suarez is a 62 year old male - Time Spent with Patient Total time spent providing and/or coordinating discharge services: 39min - Constitutional Vitals: Temp Pulse Resp BP Pulse Ox 97.8 F 73 14 108/54 96 03/10/17 10:42 03/10/17 10:42 03/10/17 10:42 03/10/17 10:42 03/10/17 10:42 - Attending Attestation I examined this patient and my medical decision-making was reviewed with the Resident Physician on 03/10/17. I agree with the documented findings, disposition and treatment plan as described except to the extent set forth below. Mr Suarez has been admitted for exac CHF. He has clinically improved and meds have been adjusted. He is afebrile and ready for discharge home. Exam Alert. comfortable Heart reg Lungs diminished Abd soft Plan D/C home today Outpatient follow up for AICD
--- NOTE | 2017-03-12 07:52 | Electrocardiograph Report ---
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
--- NOTE | 2017-03-12 07:52 | Electrocardiograph Report ---
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
== END 2017-03-10 17:30 | disposition home or self-care (01) | DRG 291 ==
LOC: 2NENU 03-07 00:13
PROVIDERS: ADMIT Internal Medicine; ATTEND Internal Medicine

== ENCOUNTER 2017-03-17 12:11 | Inpatient (IN) ==
[2017-03-17] MEDS ORDERED: Ipratropium/Albuterol Neb 3 ML IH ONE (12:39)
[2017-03-17] MEDS ORDERED: Furosemide 40 MG/4 ML VIAL IVP ONE (12:39)
[2017-03-17 12:57] LABS: INR 1.3; Prothrombin Time 14.1 Seconds (9.4-12.1)
[2017-03-17 13:00] LABS: Activated Partial Thrombo Time 29.5 Seconds (26.0-36.0)
[2017-03-17 13:01] LABS: Basophils % 0.3 %; Eosinophils # 0.1 K/mcL (0.0-0.6); Eosinophils % 0.8 %; Hematocrit 40.7 % (37.5-50.1); Hemoglobin 12.7 g/dL (12.9-16.9); Immature Granulocytes % 0.3 % (0-4); Lymphocytes # 1.4 K/mcL (0.6-4.6); Lymphocytes % 17.7 %; Mean Corpuscular HGB Conc 31.2 g/dL (31.6-35.5); Mean Corpuscular Hemoglobin 26.7 pg (28.0-33.3); Mean Corpuscular Volume 85.5 fL (83.0-100.0); Mean Platelet Volume 13.4 fL (9.4-12.4); Monocytes # 0.6 K/mcL (0.0-1.3); Monocytes % 8.2 %; Neutrophils # 5.6 K/mcL (1.6-8.9); Platelet Count 156 K/mcL (140-400); Red Blood Count 4.76 M/mcL (4.19-5.50); Red Cell Distribution Width 16.2 % (11.5-14.5); Segmented Neutrophils % 72.7 %
[2017-03-17 13:04] LABS: Calcium 9.3 mg/dL (8.6-10.3); Carbon Dioxide 34 mEq/L (23-29); Chloride 95 mEq/L (98-107); Sodium 133 mEq/L (136-145)
[2017-03-17 13:09] LABS: BUN/Creatinine Ratio 30 (6-26); Blood Urea Nitrogen 36 mg/dL (8-23); Glucose 169 mg/dL (70-105); Osmolality,Calculated 288 (280-300); eGFR For African Americans > 60 (> 60); eGFR For Non-African Americans 60 (> 60)
--- NOTE | 2017-03-17 13:27 | Emergency Department Note ---
Disposition Clinical Impression: Unstable angina pectoris, PVC (premature ventricular contraction) CAD (coronary artery disease) Qualifiers: Coronary Disease-Associated Artery/Lesion type: [place] artery [place] vs. transplanted heart: [place] heart Associated angina: without angina Qualified Code(s): I25.10 - Atherosclerotic heart disease of [place] coronary artery without angina pectoris Disposition: Admitted As Inpatient Condition: Fair Referrals: Jagdeep Rodriguez MD [Primary Care Provider] - Forms: ED Satisfaction Letter Time of Disposition: 15:55 General Adult HPI - General Chief complaint: ED Chest Pain Stated complaint: LOW HR/SOB Time Seen by Provider: 03/17/17 12:20 Source: patient Mode of arrival: ambulatory Limitations: no limitations Nursing Notes Reviewed: Yes Vital Signs Reviewed: Yes - History of Present Illness HPI Narrative: 62-year-old male presents to the emergency department with low heart rate and shortness of breath. Patient is actually set to see Dr. Hernandez tomorrow to have possible defibrillator placed. He was admitted to the hospital approximately one week ago for chest pain and was to follow-up with the defibrillator placement. Patient states he felt like his heart rate was always feeling very weak and lightheaded. Patient did not fall. He was complaining of left-sided chest pains as a 6 out of 10 nonradiating and more of a pressure description. He has not taken anything for this pain. Patient has noticeable increased swelling in both legs bilaterally. His also been short of breath recently. He does have history of COPD. Patient currently has no other complaints including no headaches, neck pain, blurry vision, back pain, nausea, vomiting, fevers, chills, abdominal pain, change in bowel movements, pain with urination, pain or tingling going down the arms or legs or generalized weakness. Pain Scale: 2 - Related Data Home Medications Medication Instructions Recorded Confirmed Albuterol Sulfate [Proair Hfa] 2 puff IH Q2H PRN 10/22/16 03/17/17 Budesonide/Formoterol 160/4.5 1 puff IH BIDR 10/22/16 03/17/17 [Symbicort 160/4.5] Tiotropium [Spiriva] 18 mcg IH DAILY 10/22/16 03/17/17 Insulin LISPRO [HumaLOG] See Protocol SQ TIDWM 11/24/16 03/17/17 BuPROPion SR (12 HR) [Wellbutrin 150 mg PO BID 11/25/16 03/17/17 SR] Glimepiride [Amaryl] 4 mg PO DAILY 11/25/16 03/17/17 Indapamide [Lozol] 2.5 mg PO DAILY 11/25/16 03/17/17 Nitroglycerin [Nitrostat] 0.4 mg SL Q5M PRN 11/25/16 03/17/17 Rosuvastatin Calcium 40 mg PO DAILY 11/25/16 03/17/17 Eszopiclone [Lunesta] 1 mg PO HS 03/07/17 03/17/17 Furosemide [Lasix] 20 mg PO DAILY 03/07/17 03/17/17 Metformin HCl [Glucophage] 1,000 mg PO BID 03/07/17 03/17/17 Metoprolol Succinate 50 mg PO DAILY 03/07/17 03/17/17 Insulin Glargine,Hum.rec.anlog 28 unit SQ BID 03/17/17 03/17/17 [Lantus Solostar] Potassium Chloride [Klor-Con 10 meq PO DAILY 03/17/17 03/17/17 Sprinkle] Previous Rx's Medication Instructions Recorded Aspirin 81 mg PO DAILY #30 tab 10/02/16 Clopidogrel [Plavix] 75 mg PO DAILY #30 tab 10/02/16 Magnesium Oxide [Mag-Ox] 400 mg PO DAILY #30 tab 10/15/16 metOLazone [Zaroxolyn] 2.5 mg PO DAILY #30 tab 10/27/16 Allergies Allergy/AdvReac Type Severity Reaction Status Date / Time codeine Allergy Itching, Verified 03/17/17 14:04 Rash ticagrelor [From Brilinta] Allergy See Verified 03/17/17 14:04 Comments Review of Systems: 10 point review of systems done and negative unless otherwise stated in history of present illness. All systems ED: reviewed and negative except as stated. Review of Systems: As Per HPI Past Medical History - Past Medical History Attestation: Yes The following information was validated with the patient. Source: patient Medical history: Reports: cardiomyopathy, CHF, COPD, coronary artery disease, diabetes, hyperlipidemia, hypertension, myocardial infarction Surgical history: Reports: angioplasty/stent, orthopedic, other, other Psychiatric history: Reports: no psych history - Social History Smoking Status: Former smoker Smokeless Tobacco Status: No Alcohol use: Reports: none Drug use: Reports: marijuana Physical Exam - General Limitations: no limitations General appearance: alert - Head Head exam: atraumatic, normocephalic, normal inspection - Eye Eye exam: Present: normal appearance, PERRL, EOMI - ENT ENT exam: normal exam, normal oropharynx, mucous membranes moist - Neck Neck exam: Present: normal inspection, full ROM, trachea midline - Chest Chest inspection: Present: normal inspection, symmetric chest wall rise - Respiratory Respiratory exam: Present: normal lung sounds bilaterally, wheezes (Mild wheezes bilaterally). Absent: respiratory distress, stridor, accessory muscle use, prolonged expiratory phase - Cardiovascular Cardiovascular exam: Present: normal rhythm, bradycardia, normal heart sounds - Abdominal Exam Abdominal exam: Present: soft, Non-Tender, normal bowel sounds. Absent: tenderness, distention, guarding, rebound, rigidity - Extremities Exam Extremities exam: Present: normal inspection, full ROM. Absent: tenderness, pedal edema - Expanded Lower Extremity Exam Neurovascular/Tendon exam: Present: normal capillary refill. Absent: pulse deficit, motor deficit, sensory deficit, tendon deficit - Back Exam Back exam: Present: normal inspection, full ROM. Absent: tenderness, CVA tenderness (R), CVA tenderness (L) - Neurological Exam Neurological exam: Present: alert, oriented X3 - Skin Skin exam: Present: warm, dry, intact, normal color Course Course Narrative: 62-year-old male presents to the emergency department complaining of shortness of breath and chest pain. We will do normal chest pain workup as well as short of breath including CBC, BMP, lactate, troponin as well as EKG and chest x-ray will give him 2 nebs patient is currently anticoagulated Xarelto so we will not anticoagulate him now. We will contact cardiology to let them know. The patient most likely will be admitted. We will also give patient IV Lasix 40 mg here. With his bilateral leg swelling. Recently put on 40 mg twice daily. - Reevaluation(s) Reevaluation #1: Spoke with on-call engineering technical analyst Dr. Pavon told him about the case and he said they will see him once patient is admitted. He asked that I send him the EKGs which was done. They said they will follow-up with him in the floor. Time: 13:00 Vital Signs Temperature 97.5 F L 03/17/17 12:16 Pulse Rate 49 03/17/17 12:16 Respiratory Rate 18 03/17/17 12:16 Blood Pressure 138/81 03/17/17 12:16 O2 Sat by Pulse Oximetry 93 03/17/17 12:16 Temperature 97.5 F L 03/17/17 12:16 Pulse Rate 73 03/17/17 14:30 Respiratory Rate 18 03/17/17 14:37 Blood Pressure 128/83 03/17/17 14:30 O2 Sat by Pulse Oximetry 98 03/17/17 14:37 Oxygen Delivery Oxygen Delivery Nasal Cannula Medical Decision Making - MDM Narrative Medical decision making narrative: 62-year-old male presenting to the emergency department with chest pain as well as bradycardia. Patient is due for a defibrillator at Dr. Hernandez's office tomorrow. Patient did have a new EKG rhythm that did show possible preventricular beats. Patient did have elevated troponin of 0.13 this was notified to the engineering technical analyst and they said they will continue to follow it. Due to patient's elevated troponin new EKG changes we felt that admission to the hospital was needed. I did speak with cardiology, Dr. Pavon who said that they will see the patient when they are admitted on the floor. Patient is okay with this plan. We did give patient a DuoNeb treatment as well as aspirin. We did contact the hospitalist, Dr. Reeves who agreed to admit the patient to their service. Patient is accepted and admitted in stable condition to their service. Chest X-Ray 03/17/17 12:38 IMPRESSION: Small, nonspecific left lung base opacity. D/ / Wayne Ríos MD / Wayne Ríos MD Interpreting Provider: Wayne Ríos MD - Medical Records Medical records reviewed: Yes I reviewed the patient's medical records. - Lab Data Lab results reviewed: Yes I reviewed the patient's lab results. Result diagrams: 03/17/17 12:27 03/17/17 12:27 Lab Results 03/17/17 03/17/17 03/17/17 Range/Units 12:27 12:27 12:27 WBC 7.6 (4.3-11.1) K/mcL RBC 4.76 (4.19-5.50) M/mcL Hgb 12.7 L (12.9-16.9) g/dL Hct 40.7 (37.5-50.1) % MCV 85.5 (83.0-100.0) fL MCH 26.7 L (28.0-33.3) pg MCHC 31.2 L (31.6-35.5) g/dL RDW 16.2 H (11.5-14.5) % Plt Count 156 (140-400) K/mcL MPV 13.4 H (9.4-12.4) fL Immature Gran % 0.3 (0-4) % Seg Neutrophils % 72.7 % Lymphocytes % 17.7 % Monocytes % 8.2 % Eosinophils % 0.8 % Basophils % 0.3 % Neutrophils # 5.6 (1.6-8.9) K/mcL Lymphocytes # 1.4 (0.6-4.6) K/mcL Monocytes # 0.6 (0.0-1.3) K/mcL Eosinophils # 0.1 (0.0-0.6) K/mcL Basophils # 0.0 (0.0-0.2) K/mcL PT 14.1 H (9.4-12.1) Seconds INR 1.3 APTT 29.5 (26.0-36.0) Seconds Sodium (136-145) mEq/L Potassium (3.5-5.1) mEq/L Chloride (98-107) mEq/L Carbon Dioxide (23-29) mEq/L BUN (8-23) mg/dL Creatinine (0.70-1.30) mg/dL Est GFR ( Amer) (> 60) Est GFR (Non-Af Amer) (> 60) BUN/Creatinine Ratio (6-26) Glucose (70-105) mg/dL Calculated Osmolality (280-300) Calcium (8.6-10.3) mg/dL Magnesium (1.6-2.6) mg/dL Troponin I (< 0.04) ng/mL B-Natriuretic Peptide 1088 H (Less than 100) pg/mL 03/17/17 03/17/17 Range/Units 12:27 12:27 WBC (4.3-11.1) K/mcL RBC (4.19-5.50) M/mcL Hgb (12.9-16.9) g/dL Hct (37.5-50.1) % MCV (83.0-100.0) fL MCH (28.0-33.3) pg MCHC (31.6-35.5) g/dL RDW (11.5-14.5) % Plt Count (140-400) K/mcL MPV (9.4-12.4) fL Immature Gran % (0-4) % Seg Neutrophils % % Lymphocytes % % Monocytes % % Eosinophils % % Basophils % % Neutrophils # (1.6-8.9) K/mcL Lymphocytes # (0.6-4.6) K/mcL Monocytes # (0.0-1.3) K/mcL Eosinophils # (0.0-0.6) K/mcL Basophils # (0.0-0.2) K/mcL PT (9.4-12.1) Seconds INR APTT (26.0-36.0) Seconds Sodium 133 L (136-145) mEq/L Potassium 4.0 (3.5-5.1) mEq/L Chloride 95 L (98-107) mEq/L Carbon Dioxide 34 H (23-29) mEq/L BUN 36 H (8-23) mg/dL Creatinine 1.22 (0.70-1.30) mg/dL Est GFR ( Amer) > 60 (> 60) Est GFR (Non-Af Amer) 60 (> 60) BUN/Creatinine Ratio 30 H (6-26) Glucose 169 H (70-105) mg/dL Calculated Osmolality 288 (280-300) Calcium 9.3 (8.6-10.3) mg/dL Magnesium 1.6 (1.6-2.6) mg/dL Troponin I 0.13 H* (< 0.04) ng/mL B-Natriuretic Peptide (Less than 100) pg/mL - Radiology Data Radiology results reviewed: Yes I reviewed the patient's radiology results. - EKG Data EKG #1 EKG attestation: Yes I reviewed and interpreted this EKG. EKG results narrative: EKG done at 12:15 reviewed by myself and attending shows sinus rhythm with premature intraocular beats. A rate of 89 including the premature ventricular beats. [place] interval 165, QRS 97, QTC 413 with a leftward axis. There is no acute ST changes or acute T-wave changes. No signs of any heart blocks. The rhythm is regular. No signs of WPW/Brugada syndrome. No signs of hypertrophy or heart strain. This EKG is changed as these premature ventricular beats were not on previous EKG done 03/08/17 otherwise is unchanged. Attestation Statement - Attestation Attestation: I, Kevin Joya DO, examined this patient [id number] and my medical decision-making was reviewed with Dr. Tay Ortega, Resident Physician. I agree with the documented findings, disposition and treatment plan as described except to the extent set forth below. Please see my progress notes for details. 62-year-old male presents to emergency room for evaluation of chest pain shortness of breath and weakness. Patient was seen and evaluated recommended to have it replaced. She is currently being seen by Dr. Hernandez here in the next several days for this evaluation. Patient denies any trauma or injuries. No new medications. He is currently on Xarelto. Dizziness and progressive shimmy edema along with increased orthopnea and shortness of breath and feeling like he needs oxygen. Physical exam shows a frail-appearing gentleman that does not appear to be in some respiratory distress. He is also quite anxious. So necrosis. Mucous membranes are moist. Trachea is midline. No stridor no trismus. Lungs have some diminished aeration bilaterally and does have a history of COPD. This will be addressed in treatment course. It is regular with no signs of tachycardia. Patient does on EKG showed bigeminy with a soka[place] rhythm and and PVC conducted at stable intervals directly after his sokaogon QRS complex. Vital signs remained stable. Patient is mentating appropriately. Abdomen is soft nontender nondistended with no guarding no rigidity no peritoneal symptoms. He has no pulsatile masses or lesions. Patient was all 4 extremities without deficit. He has no neurologic deficits at this time. Cranial nerves II through XII are grossly intact. Patient will have detailed evaluation completed with cardiac related source being the primary issue. Patient will have consultation establish with a engineering technical analyst for their recommendations intervention. Patient otherwise is resting comfortably in the bed in some mild distress most likely from anxiety. Disposition admission to hospital for further evaluation and management. Patient is otherwise stable. See detailed documentation of physical exam, medical intervention, medical decision-making, disposition and the resident physician's note. Initially patient's physical exam was concerning secondary to description of bradycardia and hypoxia. Patient was placed in the pacemaker pads and had multiple EKGs completed that were not showing any acute signs of ST segment elevation or abnormality. No visible signs of a heart block noted on evaluation. 1500 Patient's labs and imaging was reviewed with the hospitalist. Patient will be admitted for definitive management. Tap Builder was also concentrated in a reviewed EKGs and evaluated the patient at the bedside in the emergency room. Definitive management will be determined in-hospital treatment course. Troponin is chronically elevated along with his BNP. Lasix were given during this treatment course to help the symptomatic orthopnea. Patient otherwise has not required any other intervention. He is currently denying any chest pain or shortness of breath with exertion. Disposition admission for definitive management. No critical care was provided to this patient during the treatment course
[2017-03-17 14:26] LABS: Magnesium 1.6 mg/dL (1.6-2.6)
--- NOTE | 2017-03-17 14:32 | Cardiology Consult Note ---
Date of Encounter: 03/17/17 Time of Encounter: 14:23 Assessment and Plan (1) Acute exacerbation of CHF (congestive heart failure) Current Visit: No Status: Acute Known ischemic cardiomyopathy with EF 30-35%. Recent hospitalization for CHF. Reports 30 lb weight gain since UT. Lost 11 lbs during last stay and has gained back 10 lbs per patient. BNP 1088. Reports compliance with medications and low sodium diet. IV diuresis. May need higher dose of lasix at discharge. Strict I&O and daily weights. CHF education reviewed. Patient qualifys for ICD placement. Will re-schedule with EP to be done. Qualifiers: Congestive heart failure type: systolic Qualified Code(s): I50.23 - Acute on chronic systolic (congestive) heart failure (2) PVC (premature ventricular contraction) Current Visit: Yes Status: Acute Noted to have bigeminal PVC. Often HR counted lower on vital machines when patient in bigemeny. HR 70-80. Increase beta-carmela if blood pressure allows with IV diuretic. Potassium is normal. Magnesium 1.6- give IV replacement. (3) Chest pain Current Visit: No Status: Acute C/o chest pain earlier today. Resolved on its own. Known CAD. May have been exacerbated by acute CHF. Troponin elevation is chronic. Continue to trend. Qualifiers: Chest pain type: unspecified Qualified Code(s): R07.9 - Chest pain, unspecified (4) Ischemic cardiomyopathy Current Visit: No Status: Chronic (5) CAD (coronary artery disease) Current Visit: No Status: Chronic H/o UT and PCI to the LAD and 1st dx 09/2016. Continue DAPT uninterrupted for one year. Continue statin and bb. Qualifiers: Coronary Disease-Associated Artery/Lesion type: [place] artery [place] vs. transplanted heart: [place] heart Associated angina: without angina Qualified Code(s): I25.10 - Atherosclerotic heart disease of [place] coronary artery without angina pectoris Discussion w patient/family: The assessment and plan as outlined above was discussed with the patient and/or family members who expressed understanding and agreement. All questions were answered. Thank you for involving us in the care of your patient. Please call with any questions. History of Present Illness Consult date: 03/17/17 Requesting physician: Kevin Joya Consult reason: Bigemeny, CHF Chief complaint: Low heart rate, weight gain, SOB History of present illness: Mr. Suarez is a 62 year old male with a history of CAD s/p STEMI 09/2016, ICMP with EF 35%, ventricular tachycardia, and COPD. He was recommended to go to the ER when he was found to have recurrent acute on chronic CHF and bradycardia at his follow-up appy at the [facility] today. He states his HR was 39 bpm. He has gained 10 lbs, c/o increased BLE, and increased abdominal girth since his recent hospital stay. He was seen 03/07/17 for acute on chronic systolic CHF. He reports over all gaining 30 lbs since his UT. He also admits to having left sided chest discomfort while he was at the [facility]. His pain was not like his recent UT. Troponin found to be elevated to at 0.13. His troponin was as high as 0.13 during last admission for CHF. Cardiac testing: [facility] 09/30/16- 40% LMCA stenosis, 100% mLAD stenosis s/p PTCA and MEMO. 99% 1st diagonal artery stenosis s/p PTCA down to 80-90%. 20% stenosis mRCA, 40% stenosis RPDA. EF 25%. [facility] 10/14/16- Widely patent stent in the LAD. 70% stenosis 1st diagonal artery. EF 35%. TTE 03/07/17- EF 30-35% with global and regional variations. Past Med Surg Social Fam HX - Past Medical History Attestation: Yes The following information was validated with the patient. Medical history: cardiomyopathy, CHF, COPD, coronary artery disease, diabetes, hyperlipidemia, hypertension, myocardial infarction Psychiatric history: no psych history - Past Surgical History Surgical History: angioplasty/stent, orthopedic, other, other - Social History Smoking Status: Former smoker Smokeless Tobacco Status: No Alcohol use: none Drug use: marijuana - Family History Mother Living Status: Medications and Allergies Aspirin 81 mg PO DAILY #30 tab 10/02/16 [Rx] Clopidogrel [Plavix] 75 mg PO DAILY #30 tab 10/02/16 [Rx] Magnesium Oxide [Mag-Ox] 400 mg PO DAILY #30 tab 10/15/16 [Rx] Albuterol Sulfate [Proair Hfa] 2 puff IH Q2H PRN 10/22/16 [History] Budesonide/Formoterol 160/4.5 [Symbicort 160/4.5] 1 puff IH BIDR 10/22/16 [ History] Tiotropium [Spiriva] 18 mcg IH DAILY 10/22/16 [History] metOLazone [Zaroxolyn] 2.5 mg PO DAILY #30 tab 10/27/16 [Rx] Insulin LISPRO [HumaLOG] See Protocol SQ TIDWM 11/24/16 [History] BuPROPion SR (12 HR) [Wellbutrin SR] 150 mg PO BID 11/25/16 [History] Glimepiride [Amaryl] 4 mg PO DAILY 11/25/16 [History] Indapamide [Lozol] 2.5 mg PO DAILY 11/25/16 [History] Nitroglycerin [Nitrostat] 0.4 mg SL Q5M PRN 11/25/16 [History] Rosuvastatin Calcium 40 mg PO DAILY 11/25/16 [History] Eszopiclone [Lunesta] 1 mg PO HS 03/07/17 [History] Furosemide [Lasix] 20 mg PO DAILY 03/07/17 [History] Metformin HCl [Glucophage] 1,000 mg PO BID 03/07/17 [History] Metoprolol Succinate 50 mg PO DAILY 03/07/17 [History] Insulin Glargine,Hum.rec.anlog [Lantus Solostar] 28 unit SQ BID 03/17/17 [ History] Potassium Chloride [Klor-Con Sprinkle] 10 meq PO DAILY 03/17/17 [History] 3 Allergy/AdvReac Type Severity Reaction Status Date / Time codeine Allergy Itching, Verified 03/17/17 14:04 Rash ticagrelor [From Brilinta] Allergy See Verified 03/17/17 14:04 Comments All Systems Review: A 10-system review of systems was performed and is negative for pertinent findings except as documented above in the HPI. Physical Examination Vital Signs, Last 4 Hours Temp Pulse Resp BP Pulse Ox 03/17/17 13:15 74 20 108/66 94 03/17/17 12:35 89 22 131/76 98 03/17/17 12:28 94 03/17/17 12:16 97.5 F L 49 18 138/81 93 General: Conversant, No Apparent Distress HEENT: Atraumatic, Normocephaly, Mucus Membranes Moist Neck: No JVD, Normal carotid pulses Cardiac: Reg Rate and Rhythm, Normal S1 and S2, No Murmur, Other (Bigeminal PVC seen on telemetry) Lungs: Normal Breath Sounds, No Wheeze, Rales, Rhonchi Neuro: Alert and responsive, No focal deficits noted Abdomen: Soft, Non-Tender Skin: No rashes noted on visualized skin Musculoskeletal: No Chest Wall Tenderness Extremities: No Clubbing, No Cyanosis, No Edema, Normal Pulses Results 03/17/17 12:27 03/17/17 12:27 Lab Results 03/17/17 03/17/17 03/17/17 12:27 12:27 12:27 WBC 7.6 Hgb 12.7 L Hct 40.7 Plt Count 156 INR 1.3 APTT 29.5 Sodium Potassium Chloride Carbon Dioxide BUN Creatinine Glucose Calcium Troponin I B-Natriuretic Peptide 1088 H 03/17/17 03/17/17 12:27 12:27 WBC Hgb Hct Plt Count INR APTT Sodium 133 L Potassium 4.0 Chloride 95 L Carbon Dioxide 34 H BUN 36 H Creatinine 1.22 Glucose 169 H Calcium 9.3 Troponin I 0.13 H* B-Natriuretic Peptide - Imaging and Cardiology Echo: report reviewed Cardiac cath: report reviewed - EKG Interpretation EKG results cardiology: personally reviewed (SR with bigemenal PVC.) Consult Discharge Plan - Plan Referrals: Jagdeep Rodriguez MD [Primary Care Provider] -
[2017-03-17] MEDS ORDERED: Nitroglycerin 0.4 MG TAB.SUBL SL PRN (15:11)
[2017-03-17] MEDS ORDERED: Naloxone 0.4 MG/ML INJ IVP PRN (15:36)
[2017-03-17] MEDS ORDERED: Dextrose Gel 15 GM/37.5 ML TUBE PO PRN ×2 (15:39)
[2017-03-17] MEDS ORDERED: D5% in Water 1,000 ML IVC PRN (15:39)
[2017-03-17] MEDS ORDERED: *HR* Dextrose 50 % in Water (Syg) 50 ML SYRINGE IVP PRN (15:39)
[2017-03-17] MEDS: Aspirin 81 MG TAB.CHEW PO SCH (16:34)
--- NOTE | 2017-03-17 16:43 | Internal Med History&Physical ---
Date of Encounter: 03/17/17 Time of Encounter: 16:34 Assessment and Plan (1) Acute exacerbation of CHF (congestive heart failure) Current visit: Yes Status: Acute continue diuresis ith lasix IV BID Strict intake and output monitoring. Check within the. Fluid restriction 1200 mL daily. Echocardiogram from last admission noted, no indication to repeat. 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 transplanted heart: [place] heart Associated angina: without angina Qualified Code(s): I25.10 - Atherosclerotic heart disease of [place] coronary artery without angina pectoris (6) Essential hypertension Current visit: Yes Status: Chronic controlled, continue home meds (7) Hyperlipidemia Current visit: Yes Status: Chronic continue home meds Qualifiers: Hyperlipidemia type: mixed hyperlipidemia Qualified Code(s): E78.2 - Mixed hyperlipidemia (8) Depression Current visit: Yes Status: Chronic continue home meds Qualifiers: Depression Type: unspecified Qualified Code(s): F32.9 - Major depressive disorder, single episode, unspecified (9) Chronic respiratory failure with hypoxia Current visit: Yes Status: Chronic O2 requirement at baseline, continue O2 (10) Elevated troponin Current visit: Yes Status: Acute chronic, no chest pain, continue to cycle Internal Medicine - H&P: HPI Chief complaint: Shortness of breath Admitted From: Home Plans for Post Hospital Care: Home History of present illness: Mr. Suarez is a 62 year old male with coronary artery disease and ischemic cardiomyopathy, decreased EF 55%, hyperlipidemia and hypertension presented to the ER from his primary care physician's office for evaluation for bradycardia. The patient also reports dyspnea on exertion which has progressed to dyspnea at rest, easy fatigability and decreased exercise tolerance. He also reports a 20 pound weight gain from his last discharge. He also reports worsening swelling of his lower extremities to his knee and decreased urinary output. He denies cough or chest pain, he denies nausea or vomiting, he denies diaphoresis denies dizziness. He does not have chest pain. He has no abdominal symptoms. He has no change in his urinary or bowel habits. He has no neurologic symptoms. His HR has been in acceptable range here since arrival He has chronic respiratory failure and on home O2 . The patient reports that he was told during his last admission that he needed ICD placement due to NSVTS during that admission, he was meant to see Dr. Hernandez for evaluation tomorrow a.m. He will be evaluate by cardiology again. Past Med Surg Social Fam HX - Past Medical History Medical history: cardiomyopathy, CHF, COPD, coronary artery disease, diabetes, hyperlipidemia, hypertension, myocardial infarction Psychiatric history: no psych history - Past Surgical History Surgical History: angioplasty/stent, orthopedic, other, other - Social History Smoking Status: Former smoker Smokeless Tobacco Status: No Alcohol use: none Drug use: marijuana - Family History Mother Living Status: Internal Medicine - H&P: Meds Aspirin 81 mg PO DAILY #30 tab 10/02/16 [Rx] Clopidogrel [Plavix] 75 mg PO DAILY #30 tab 10/02/16 [Rx] Magnesium Oxide [Mag-Ox] 400 mg PO DAILY #30 tab 10/15/16 [Rx] Albuterol Sulfate [Proair Hfa] 2 puff IH Q2H PRN 10/22/16 [History] Budesonide/Formoterol 160/4.5 [Symbicort 160/4.5] 1 puff IH BIDR 10/22/16 [ History] Tiotropium [Spiriva] 18 mcg IH DAILY 10/22/16 [History] metOLazone [Zaroxolyn] 2.5 mg PO DAILY #30 tab 10/27/16 [Rx] Insulin LISPRO [HumaLOG] See Protocol SQ TIDWM 11/24/16 [History] BuPROPion SR (12 HR) [Wellbutrin SR] 150 mg PO BID 11/25/16 [History] Glimepiride [Amaryl] 4 mg PO DAILY 11/25/16 [History] Indapamide [Lozol] 2.5 mg PO DAILY 11/25/16 [History] Nitroglycerin [Nitrostat] 0.4 mg SL Q5M PRN 11/25/16 [History] Rosuvastatin Calcium 40 mg PO DAILY 11/25/16 [History] Eszopiclone [Lunesta] 1 mg PO HS 03/07/17 [History] Furosemide [Lasix] 20 mg PO DAILY 03/07/17 [History] Metformin HCl [Glucophage] 1,000 mg PO BID 03/07/17 [History] Metoprolol Succinate 50 mg PO DAILY 03/07/17 [History] Insulin Glargine,Hum.rec.anlog [Lantus Solostar] 28 unit SQ BID 03/17/17 [ History] Potassium Chloride [Klor-Con Sprinkle] 10 meq PO DAILY 03/17/17 [History] 3 Allergy/AdvReac Type Severity Reaction Status Date / Time codeine Allergy Itching, Verified 03/17/17 14:04 Rash ticagrelor [From Brilinta] Allergy See Verified 03/17/17 14:04 Comments All Systems PM: A 10-system review of systems was performed and is negative for pertinent findings except as documented above in the HPI. - Constitutional Constitutional: as per HPI - EENT Eyes: as per HPI Ears: as per HPI Nose, mouth and throat: as per HPI - Cardiovascular Cardiovascular ROS IM: as per HPI - Respiratory Respiratory: as per HPI - Gastrointestinal Gastrointestinal: as per HPI - Musculoskeletal Musculoskeletal ROS IM: as per HPI - Integumentary Integumentary IM: as per HPI - Neurological Neurological ROS: as per HPI - Hematologic/Lymphatic Hematologic/Lymphatic: as per HPI - Constitutional Vitals: Temp Pulse Resp BP Pulse Ox 97.5 F L 73 18 128/83 98 03/17/17 12:16 03/17/17 14:30 03/17/17 14:37 03/17/17 14:30 03/17/17 14:37 General appearance: Present: A&O X 3, pleasant, no acute distress - Head Head exam: Present: atraumatic, normocephalic - Eye Eye exam: Present: PERRL, conjuntiva pink, sclera anicteric Pupils: Present: PERRL - Neck Neck exam general surgery: Present: supple, trachea midline. Absent: lymphadenopathy - Respiratory Respiratory exam: Present: rales - Cardiovascular Cardiovascular exam: Present: bradycardia, +S1, +S2. Absent: systolic murmur - GI/Abdominal GI/Abdominal exam: Present: normal bowel sounds, soft, no peritoneal signs. Absent: distended, tenderness - Extremities Exam Extremities exam: Present: pedal edema (2+ up to the knees) - Neurological Exam Neurological exam: Present: alert, CN II-XII intact, oriented X3, no focal deficits. Absent: pronater drift, facial droop, speech deficit - Skin Skin exam: Present: dry, intact Internal Med - H&P Results - Labs CBC & Chem 7: 03/17/17 12:27 03/17/17 12:27 Labs: Short CBC 03/17/17 Range/Units 12:27 WBC 7.6 (4.3-11.1) K/mcL Hgb 12.7 L (12.9-16.9) g/dL Hct 40.7 (37.5-50.1) % Plt Count 156 (140-400) K/mcL Neutrophils # 5.6 (1.6-8.9) K/mcL BMP 03/17/17 12:27 Sodium 133 L Potassium 4.0 Chloride 95 L Carbon Dioxide 34 H BUN 36 H Creatinine 1.22 Glucose 169 H Calcium 9.3 Cardiac Enzymes 03/17/17 Range/Units 12:27 Troponin I 0.13 H* (< 0.04) ng/mL - Impressions ITS Impressions Chest X-Ray 03/17/17 12:38 IMPRESSION: Small, nonspecific left lung base opacity. D/ / Wayne Ríos MD / Wayne Ríos MD Interpreting Provider: Wayne Ríos MD
--- NOTE | 2017-03-17 17:53 | Electrocardiograph Report ---
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
[2017-03-17] MEDS ORDERED: Insulin DETEMIR 100 UNIT/ML X5UNITS SQ SCH (21:00)
[2017-03-17] MEDS: Insulin LISPRO 300 UNITS/3 ML VIAL SQ SCH ×3 (21:16→21:42)
[2017-03-17] MEDS: BuPROPion SR (12 HR) 150 MG TABLET PO SCH (21:41)
[2017-03-17] MEDS: Furosemide 40 MG/4 ML VIAL IVP SCH (21:42)
[2017-03-17] MEDS: Budesonide/Formoterol 160/4.5 MDI IH SCH (23:02)
[2017-03-18 01:19] LABS: Basophils % 0.4 %; Eosinophils # 0.1 K/mcL (0.0-0.6); Eosinophils % 1.4 %; Hemoglobin 12.1 g/dL (12.9-16.9); Immature Granulocytes % 0.3 % (0-4); Lymphocytes # 1.2 K/mcL (0.6-4.6); Lymphocytes % 16.1 %; Mean Corpuscular Hemoglobin 26.2 pg (28.0-33.3); Mean Corpuscular Volume 84.6 fL (83.0-100.0); Mean Platelet Volume 13.2 fL (9.4-12.4); Monocytes # 0.6 K/mcL (0.0-1.3); Monocytes % 8.1 %; Neutrophils # 5.4 K/mcL (1.6-8.9); Platelet Count 152 K/mcL (140-400); Red Blood Count 4.61 M/mcL (4.19-5.50); Red Cell Distribution Width 16.1 % (11.5-14.5); Segmented Neutrophils % 73.7 %
[2017-03-18 01:36] LABS: Potassium 3.9 mEq/L (3.5-5.1)
[2017-03-18] MEDS: Ipratropium/Albuterol Neb 3 ML IH PRN ×3 (05:40→21:21)
[2017-03-18] MEDS: Budesonide/Formoterol 160/4.5 MDI IH SCH ×2 (07:46→21:21)
[2017-03-18] MEDS: Tiotropium 18 MCG inhalation IH SCH (07:47)
[2017-03-18] MEDS: Furosemide 40 MG/4 ML VIAL IVP SCH (08:34)
[2017-03-18] MEDS: metOLazone 5 MG TABLET PO SCH (08:35)
[2017-03-18] MEDS: BuPROPion SR (12 HR) 150 MG TABLET PO SCH ×2 (08:35→21:07)
[2017-03-18] MEDS: Insulin LISPRO 300 UNITS/3 ML VIAL SQ SCH ×7 (08:35→21:07)
[2017-03-18] MEDS: Magnesium Oxide 400 MG TABLET PO SCH (08:36)
[2017-03-18] MEDS: Aspirin 81 MG TAB.CHEW PO SCH (08:36)
[2017-03-18] MEDS: Insulin DETEMIR 100 UNIT/ML X5UNITS SQ SCH ×2 (08:44→21:07)
[2017-03-18] MEDS ORDERED: Metoprolol XL (24 HR) Succ 50 MG TAB.ER.24H PO SCH (09:00)
--- NOTE | 2017-03-18 10:03 | Cardiology Progress Note ---
Date of Encounter: 03/18/17 Time of Encounter: 10:00 Assessment and Plan (1) Acute exacerbation of CHF (congestive heart failure) Current Visit: Yes Status: Acute Known ischemic cardiomyopathy with EF 30-35%. Recent hospitalization for CHF. Reports 30 lb weight gain since [place] 12/2016. Lost 11 lbs during last stay and has gained back 10 lbs per patient. BNP 1088. Reports compliance with medications and low sodium diet. IV diuresis. Noted elevated creatinine. Decrease IV lasix to 20 mg BID. Continues to have BLE edema. Strict I&O and daily weights. CHF education reviewed. No I&O documented. Patient reports using urinal several times in ED yesterday and last night. Patient qualifys for ICD placement. Will re-schedule with EP in out-pt setting once acute systolic CHF resolved. Qualifiers: Congestive heart failure type: systolic Qualified Code(s): I50.23 - Acute on chronic systolic (congestive) heart failure (2) PVC (premature ventricular contraction) Current Visit: Yes Status: Acute Noted to have bigeminal PVC on admission. Telemetry review shows SR overnight with frequent PVC and bigemeny. Often HR counted lower on vital machines when patient in bigemeny. Reported to have hr in the 30's at the [facility] yesterday. Likely due to bigemeny. HR 70-80. Avg 86 bpm. No bradycardia seen. Increase beta-carmela. Potassium is normal. Magnesium 1.6- oral replacement started. (3) Chest pain Current Visit: No Status: Acute C/o chest pain yesterday. Resolved on its own. Known CAD. May have been exacerbated by acute CHF. Troponin elevation noted to be chronic. Troponin 0.13 , 0.13, 0.12. Denies recurrent chest pain. Likely demand ischemia in the setting of acute on chronic CHF. [place] and PCI to the LAD and 1st dx 09/2016. Medical management recommended. Metoprolol increased for PVC. Continue asa, statin, plavix, and bb. Qualifiers: Chest pain type: unspecified Qualified Code(s): R07.9 - Chest pain, unspecified (4) Ischemic cardiomyopathy Current Visit: Yes Status: Chronic (5) CAD (coronary artery disease) Current Visit: Yes Status: Chronic H/o [place] and PCI to the LAD and 1st dx 09/2016. Continue DAPT uninterrupted for one year. Continue statin and bb. Qualifiers: Coronary Disease-Associated Artery/Lesion type: [place] artery [place] vs. transplanted heart: koi heart Associated angina: without angina Qualified Code(s): I25.10 - Atherosclerotic heart disease of koi coronary artery without angina pectoris Discussion w patient/family: The assessment and plan as outlined above was discussed with the patient and/or family members who expressed understanding and agreement. All questions were answered. Thank you for involving us in the care of your patient. Please call with any questions. Subjective Principal diagnosis: acute on chronic CHF, PVC Interval history: Mr. Hutchinson states he is feeling better. he is breathing better. Denies chest pain. BLE edema is reduced. Objective Vital Signs, Last 4 Hours Temp Pulse Resp BP Pulse Ox 03/18/17 07:46 20 96 03/18/17 07:05 97.3 F L 86 18 118/68 94 General: Conversant, No Apparent Distress HEENT: Atraumatic, Normocephaly, Mucus Membranes Moist Neck: No JVD, Normal carotid pulses Cardiac: Reg Rate and Rhythm, Normal S1 and S2, No Murmur Lungs: Normal Breath Sounds, No Wheeze, Rales, Rhonchi Neuro: Alert and responsive, No focal deficits noted Abdomen: Soft, Non-Tender Skin: No rashes noted on visualized skin Musculoskeletal: No Chest Wall Tenderness Extremities: No Clubbing, No Cyanosis, Normal Pulses, Other (2+ BLE ankle edema up to mid pelaez. ) Results 03/18/17 01:04 03/18/17 01:04 Lab Results 03/18/17 03/18/17 03/18/17 01:04 01:04 01:04 WBC 7.3 Hgb 12.1 L Hct 39.0 Plt Count 152 Sodium 137 Potassium 3.9 Chloride 96 L Carbon Dioxide 37 H BUN 34 H Creatinine 1.47 H Glucose 345 H Calcium 9.0 Troponin I 0.12 H* - Imaging and Cardiology Echo: report reviewed Cardiac cath: report reviewed - EKG Interpretation EKG results cardiology: personally reviewed Consult Discharge Plan - Plan Referrals: Jennifer,Jagdeep Jones MD [Primary Care Provider] -
[2017-03-18] MEDS ORDERED: Metoprolol XL (24 HR) Succ 25 MG TAB.ER.24H PO ONE (10:30)
[2017-03-18] MEDS: Furosemide 20 MG/2 ML VIAL IVP SCH (17:12)
--- NOTE | 2017-03-18 17:23 | Internal Med Progress Note ---
Date of Encounter: 03/18/17 Time of Encounter: 11:20 - Assessment and plan (1) Acute exacerbation of CHF (congestive heart failure) Current Visit: Yes Status: Acute Assessment and plan: Acute exacerbation of systolic CHF. Patient presented to the emergency room from his primary care office for evaluation bradycardia, RAMSEY which is progressed to dyspnea at rest, and decreased exercise tolerance. Patient reports a 20 pound weight gain since his last discharge and increased edema in lower extremities and decreased urinary output. Continue IV Lasix twice a day. Strict intake and output. Fluid restriction 1.2 L per day. Continue aspirin, beta carmela, statin, SHAWN inhibitor. Echocardiogram in 03/07/2017 she is LVEF of 30-35% with global LV systolic dysfunction. O2 as needed to maintain sats greater than 92%. Continue telemetry. Qualifiers: Congestive heart failure type: systolic Qualified Code(s): I50.23 - Acute on chronic systolic (congestive) heart failure (2) Elevated troponin Current Visit: Yes Status: Acute Assessment and plan: Chronic. Elevated to 0.13. EKG on 03/17 showed sinus rhythm with frequent PVCs in a bigeminal pattern, and an anterior septal [place] of indeterminate age. Rate is 84, TX interval 162, QRS 94 , QTC 417. Troponin is chronically elevated, most likely due to demand ischemia from cardiomyopathy and acute exacerbation of CHF. Continue to monitor. Continue telemetry (3) CAD (coronary artery disease) Current Visit: Yes Status: Chronic Assessment and plan: Continue telemetry, continue aspirin, beta carmela, statin, SHAWN inhibitor. Qualifiers: Coronary Disease-Associated Artery/Lesion type: [place] artery [place] vs. transplanted heart: [place] heart Associated angina: without angina Qualified Code(s): I25.10 - Atherosclerotic heart disease of [place] coronary artery without angina pectoris (4) COPD (chronic obstructive pulmonary disease) Current Visit: Yes Status: Chronic Assessment and plan: No acute exacerbation. Continue home inhalers, Spiriva. Continue nebulizers as needed. O2 to maintain sats greater than 92%. Continuous pulse ox. Qualifiers: COPD type: chronic bronchitis Chronic bronchitis type: simple Qualified Code(s): J41.0 - Simple chronic bronchitis (5) Chronic respiratory failure with hypoxia Current Visit: Yes Status: Chronic Assessment and plan: Patient's O2 requirement is at his normal baseline. Continue O2 as needed to maintain sats greater than 92%. (6) Depression Current Visit: Yes Status: Chronic Assessment and plan: Chronic. Continue home medications. Qualifiers: Depression Type: unspecified Qualified Code(s): F32.9 - Major depressive disorder, single episode, unspecified (7) Diabetes Current Visit: Yes Status: Chronic Qualifiers: Diabetes mellitus type: type 2 Diabetes mellitus complication status: with hyperglycemia Diabetes mellitus senior living insulin use: with senior living use Qualified Code(s): E11.65 - Type 2 diabetes mellitus with hyperglycemia; Z79.4 - longterm (current) use of insulin (8) Hyperlipidemia Current Visit: Yes Status: Chronic Assessment and plan: Chronic. Continue statin. Qualifiers: Hyperlipidemia type: mixed hyperlipidemia Qualified Code(s): E78.2 - Mixed hyperlipidemia (9) Ischemic cardiomyopathy Current Visit: Yes Status: Chronic Assessment and plan: Chronic. Per patient history. EF 30-35%. Elevated troponin. Patient has been evaluated by cardiology. He will follow-up in the office after discharge for discussion related to primary prevention ICD. - Time Spent With Patient less than 15 minutes - Subjective Interval history: Patient was seen at bedside at 11:20 AM. Family member at bedside. All questions were answered. Patient reported a possibly 10 minutes of left chest pain with no radiation, diaphoresis, nausea or vomiting. He reports this is the same chest painin the past. He denies dyspnea on exertion with going to and from the bathroom. He denies dizziness or headache, no abdominal pain, nausea, vomiting. - Constitutional Vitals: Temp Pulse Resp BP Pulse Ox 97.5 F L 74 20 101/60 98 03/18/17 15:19 03/18/17 15:19 03/18/17 15:34 03/18/17 15:19 03/18/17 15:34 General appearance: Present: cooperative, A&O X 3, pleasant, no acute distress, answers questions appropriately - Head Head exam: Present: atraumatic, normal inspection, normocephalic - Eye Eye exam: Present: normal appearance, conjuntiva pink, sclera anicteric - Neck Neck exam general surgery: Present: supple, trachea midline. Absent: lymphadenopathy - Respiratory Respiratory exam: Present: chest wall tenderness, decreased breath sounds, CTAB. Absent: accessory muscle use, rales, respiratory distress, rhonchi, wheezes - Cardiovascular Cardiovascular exam: Present: RRR, +S1, +S2. Absent: diastolic murmur, gallop, irregular rhythm, rubs, systolic murmur - GI/Abdominal GI/Abdominal exam: Present: normal bowel sounds, soft, no peritoneal signs. Absent: distended, hepatomegaly, tenderness - Extremities Exam Extremities exam: Present: normal capillary refill, normal inspection, warm, radial pulses palpable and symmetrical. Absent: calf tenderness, cyanotic, pedal edema, tenderness - Neurological Exam Neurological exam: Present: alert, oriented X3, no focal deficits. Absent: facial droop, speech deficit - Skin Skin exam: Present: dry, intact, normal color, warm. Absent: rash Internal Medicine: Result - Labs CBC & Chem 7: 03/18/17 01:04 03/18/17 01:04 Labs: Short CBC 03/18/17 Range/Units 01:04 WBC 7.3 (4.3-11.1) K/mcL Hgb 12.1 L (12.9-16.9) g/dL Hct 39.0 (37.5-50.1) % Plt Count 152 (140-400) K/mcL Neutrophils # 5.4 (1.6-8.9) K/mcL BMP 03/18/17 01:04 Sodium 137 Potassium 3.9 Chloride 96 L Carbon Dioxide 37 H BUN 34 H Creatinine 1.47 H Glucose 345 H Calcium 9.0 Cardiac Enzymes 03/18/17 Range/Units 01:04 Troponin I 0.12 H* (< 0.04) ng/mL - ABG Interpretation ABG results: PT/INR, D-dimer PT 14.1 Seconds (9.4-12.1) H 03/17/17 12:27 Consult Discharge Plan - Plan Referrals: Jennifer,Jagdeep Jones MD [Primary Care Provider] -
[2017-03-19] MEDS: Ipratropium/Albuterol Neb 3 ML IH PRN ×4 (02:13→16:06)
[2017-03-19] MEDS: Insulin LISPRO 300 UNITS/3 ML VIAL SQ SCH ×4 (07:49→12:39)
[2017-03-19] MEDS: Budesonide/Formoterol 160/4.5 MDI IH SCH (08:18)
[2017-03-19] MEDS: Tiotropium 18 MCG inhalation IH SCH (08:21)
[2017-03-19] MEDS: Furosemide 20 MG/2 ML VIAL IVP SCH (08:28)
[2017-03-19] MEDS: Magnesium Oxide 400 MG TABLET PO SCH (08:28)
[2017-03-19] MEDS: BuPROPion SR (12 HR) 150 MG TABLET PO SCH (08:28)
[2017-03-19] MEDS: Aspirin 81 MG TAB.CHEW PO SCH (08:29)
[2017-03-19] MEDS: Insulin DETEMIR 100 UNIT/ML X5UNITS SQ SCH (08:30)
[2017-03-19] MEDS: metOLazone 5 MG TABLET PO SCH (08:36)
[2017-03-19] MEDS ORDERED: Metoprolol XL (24 HR) Succ 50 MG TAB.ER.24H PO SCH (09:00)
--- NOTE | 2017-03-19 12:20 | Discharge Summary ---
Date of Encounter: 03/19/17 Time of Encounter: 09:50 - Discharge Diagnosis (1) Acute exacerbation of CHF (congestive heart failure) Priority: Primary Status: Acute Comments: Acute exacerbation of systolic CHF. Patient presented to the emergency room from his primary care office for evaluation bradycardia, RAMSEY which is progressed to dyspnea at rest, and decreased exercise tolerance. Patient reports a 20 pound weight gain since his last discharge and increased edema in lower extremities and decreased urinary output.Echocardiogram in 03/07/2017 she is LVEF of 30-35% with global LV systolic dysfunction. O2 at home per usual flow. Patient is insistent that he go home. Since he is feeling better and is breathing more easily. According to intake and output record, he has had no significant diuresis, weight remains basically the same since arrival. Patient and I discussed compliance at home including taking Lasix as written, retaining fluid restriction, low sodium diet, and daily weights. Pt is aware that he needs to follow with cardiology for possible ICD placement. Continue home dose of Lasix Encourage pt to weigh himself daily Fluid restriction 1.2 L per day. Continue aspirin, beta carmela, statin, SHAWN inhibitor. Qualifiers: Congestive heart failure type: systolic Qualified Code(s): I50.23 - Acute on chronic systolic (congestive) heart failure (2) Elevated troponin Priority: Secondary Status: Acute Comments: Chronic. Elevated to 0.13. EKG on 03/17 showed sinus rhythm with frequent PVCs in a bigeminal pattern, and an anterior septal TN of indeterminate age. No ST changes from baseline. Rate is 84, TX interval 162, QRS 94, QTC 417. Troponin is chronically elevated, most likely due to demand ischemia from cardiomyopathy and acute exacerbation of CHF. Follow with cardiology. (3) CAD (coronary artery disease) Priority: Secondary Status: Chronic Comments: Continue ASA, statin, BB, ACEI. Pt denies chest pain. Qualifiers: Coronary Disease-Associated Artery/Lesion type: [place] artery [place] vs. transplanted heart: [place] heart Associated angina: without angina Qualified Code(s): I25.10 - Atherosclerotic heart disease of [place] coronary artery without angina pectoris (4) COPD (chronic obstructive pulmonary disease) Priority: Secondary Status: Chronic Comments: No acute exacerbation. Continue home inhalers, Spiriva. Continue nebulizers as needed. O2 to maintain sats greater than 92%. Home 02 2L prn. Qualifiers: COPD type: chronic bronchitis Chronic bronchitis type: simple Qualified Code(s): J41.0 - Simple chronic bronchitis (5) Chronic respiratory failure with hypoxia Priority: Secondary Status: Chronic Comments: Patient's O2 requirement is at his normal baseline. Continue O2 as needed to maintain sats greater than 92%. (6) Depression Priority: Secondary Status: Chronic Comments: Chronic. Continue home medications. Qualifiers: Depression Type: unspecified Qualified Code(s): F32.9 - Major depressive disorder, single episode, unspecified (7) Diabetes Priority: Secondary Status: Chronic Comments: Continue home medications, diabetic diet and Accu-Cheks per home schedule. 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 Continue statin at home. Qualifiers: Hyperlipidemia type: mixed hyperlipidemia Qualified Code(s): E78.2 - Mixed hyperlipidemia (9) Ischemic cardiomyopathy Priority: Secondary Status: Chronic Comments: Chronic. EF is 30-35%. He has elevated troponin chronically. He has been evaluated by cardiology follow-up in the office after discharge for discussion regarding primary prevention ICD. - Discharge Medications Home Medications: Aspirin 81 mg PO DAILY #30 tab 10/02/16 [Rx] Clopidogrel [Plavix] 75 mg PO DAILY #30 tab 10/02/16 [Rx] Magnesium Oxide [Mag-Ox] 400 mg PO DAILY #30 tab 10/15/16 [Rx] Albuterol Sulfate [Proair Hfa] 2 puff IH Q2H PRN 10/22/16 [History] Budesonide/Formoterol 160/4.5 [Symbicort 160/4.5] 1 puff IH BIDR 10/22/16 [ History] Tiotropium [Spiriva] 18 mcg IH DAILY 10/22/16 [History] metOLazone [Zaroxolyn] 2.5 mg PO DAILY #30 tab 10/27/16 [Rx] Insulin LISPRO [HumaLOG] See Protocol SQ TIDWM 11/24/16 [History] BuPROPion SR (12 HR) [Wellbutrin SR] 150 mg PO BID 11/25/16 [History] Glimepiride [Amaryl] 4 mg PO DAILY 11/25/16 [History] Indapamide [Lozol] 2.5 mg PO DAILY 11/25/16 [History] Nitroglycerin [Nitrostat] 0.4 mg SL Q5M PRN 11/25/16 [History] Rosuvastatin Calcium 40 mg PO DAILY 11/25/16 [History] Eszopiclone [Lunesta] 1 mg PO HS 03/07/17 [History] Furosemide [Lasix] 20 mg PO DAILY 03/07/17 [History] Metformin HCl [Glucophage] 1,000 mg PO BID 03/07/17 [History] Metoprolol Succinate 50 mg PO DAILY 03/07/17 [History] Insulin Glargine,Hum.rec.anlog [Lantus Solostar] 26 unit SQ BID 03/17/17 [ History] Potassium Chloride [Klor-Con Sprinkle] 10 meq PO DAILY 03/17/17 [History] Allergies/Adverse Reactions: 3 Allergy/AdvReac Type Severity Reaction Status Date / Time codeine Allergy Itching, Verified 03/17/17 14:04 Rash ticagrelor [From Brilinta] Allergy See Verified 03/17/17 14:04 Comments Date of admission: 03/19/17 08:57 Primary care physician: Jagdeep Rodriguez MD Discharging clinician: Carolyn Garcia Anticipated date of discharge: 03/19/17 - Patient Status Disposition: Home, Self-Care Condition: Good Functional capacity at discharge: independent ambulation Overall status at discharge: patient is progressing back to baseline - Discharge Instructions Follow Up With: Jagdeep Rodriguez MD [Primary Care Provider] - Additional Instructions: Please follow up with cardiology as scheduled. Please see your PCP in the next 7-10 days for a recheck. Return to the ER as needed for any other problems or concerns. Take your medications as directed. STRICT 1.5 LITER FLUID RESTRICTION DAILY WEIGH YOURSELF DAILY AT THE SAME TIME WITH THE SAME CLOTHING TAKE YOUR MEDICATION DIRECTED LOW SODIUM DIET - Diet and Activity Activity: increase activity as tolerated Diet: low salt diet, other (FLUID RESTRICTION- 1.5 LITER) Hospital course: Mr. Suarez is a 62 year old male with PMH of COPD, CHF with EF 30-35%, STEMI, ischemic cardiomyopathy, DM, depression, smoking, v-tach, obesity, who presents to the ED for evaluation of bradycardia. He also reports recent RAMSEY which is progressive dyspnea at rest, and decreased exercise tolerance. This reports 20 pound weight gain and worsening peripheral edema. He denies cough or chest pain , no nausea or vomiting no diaphoresis, dizziness, abdominal pain. Patient's monitor has not indicated bradycardia, rate has been in the 80s. He was evaluated by cardiology and will follow-up in the office for evaluation for possible placement of ICD. I went over discharge instructions including daily weights, maintaining 1.5 L fluid restriction daily, taking diuretic as directed , low-sodium diet, patient was agreeable. He is aware that he needs to follow- up with cardiology. Patient has home O2 that he normally wears, 2 L continuously. Patient's vital signs have been stable, pt is ready for discharge. - Time Spent with Patient Total time spent providing and/or coordinating discharge services: Less than 30 minutes - Constitutional Vitals: Temp Pulse Resp BP Pulse Ox 98.1 F 63 14 89/53 97 03/19/17 11:19 03/19/17 11:19 03/19/17 11:19 03/19/17 11:19 03/19/17 11:19 General appearance: Present: cooperative, A&O X 3, pleasant, no acute distress, answers questions appropriately - Head Head exam: Present: atraumatic, normal inspection, normocephalic - Eye Eye exam: Present: normal appearance, conjuntiva pink, sclera anicteric - Neck Neck exam general surgery: Present: supple, trachea midline. Absent: lymphadenopathy, tenderness - Respiratory Respiratory exam: Present: decreased breath sounds, CTAB. Absent: accessory muscle use, chest wall tenderness, rales, rhonchi, wheezes - Cardiovascular Cardiovascular exam: Present: RRR, +S1, +S2. Absent: bradycardia, diastolic murmur, gallop, rubs, systolic murmur - GI/Abdominal GI/Abdominal exam: Present: normal bowel sounds, soft, no peritoneal signs. Absent: distended, hepatomegaly, tenderness - Extremities Exam Extremities exam: Present: normal capillary refill, normal inspection, pedal edema, warm, radial pulses palpable and symmetrical. Absent: calf tenderness, cyanotic, tenderness - Neurological Exam Neurological exam: Present: alert, oriented X3, no focal deficits. Absent: facial droop, speech deficit - Skin Skin exam: Present: dry, intact, normal color, warm. Absent: rash
[2017-03-19 13:53] LABS: Calcium 9.1 mg/dL (8.6-10.3); Carbon Dioxide 38 mEq/L (23-29); Chloride 93 mEq/L (98-107); Potassium 3.8 mEq/L (3.5-5.1); Sodium 135 mEq/L (136-145)
[2017-03-19 13:58] LABS: BUN/Creatinine Ratio 22 (6-26); Blood Urea Nitrogen 25 mg/dL (8-23); Glucose 212 mg/dL (70-105); Osmolality,Calculated 291 (280-300); eGFR For African Americans > 60 (> 60); eGFR For Non-African Americans > 60 (> 60)
[2017-03-19 15:22] VITALS: BP 97/64
[2017-03-20] MEDS ORDERED: *HR* Enoxaparin 30 MG/0.3 ML SYRINGE SQ SCH (06:00)
== END 2017-03-19 17:23 | disposition home or self-care (01) | DRG 292 ==
LOC: 3BNU 12:11 → EMEROO 12:11 → 3BNU 19:30
PROVIDERS: ADMIT Internal Medicine; ATTEND Registered Nurse

== ENCOUNTER 2017-03-28 17:02 | Inpatient (IN) ==
[2017-03-28] MEDS ORDERED: Nitroglycerin 1 INCH/GM PACKET TP ONE (17:35)
[2017-03-28] MEDS ORDERED: Aspirin 81 MG TAB.CHEW PO ONE (17:35)
[2017-03-28] MEDS ORDERED: Nitroglycerin 0.4 MG TAB.SUBL SL PRN (17:36)
--- NOTE | 2017-03-28 17:38 | Emergency Department Note ---
Disposition Clinical Impression: NSTEMI (non-ST elevated myocardial infarction), Hyperglycemia Congestive heart failure Qualifiers: Heart failure type: unspecified Heart failure chronicity: chronic Qualified Code(s): I50.9 - Heart failure, unspecified Disposition: Admitted As Inpatient Condition: Fair Time of Disposition: 18:17 General Adult HPI - General Chief complaint: ED Arrhythmia/Palpitations Stated complaint: Bradycardia Time Seen by Provider: 03/28/17 17:15 Source: patient Mode of arrival: ambulatory Limitations: no limitations Nursing Notes Reviewed: Yes Vital Signs Reviewed: Yes - History of Present Illness HPI Narrative: 63-year-old male history of ACS status post stents on aspirin and Plavix as well as elevated blood pressure congestive heart failure presents for evaluation of chest pain and bradycardia. Patient was sent in by his primary care doctor due to his low heart rate. Patient states that he is on a beta carmela and did forget to take that last night. Patient states that he has been having a left-sided chest pressure without radiation for the past hour and a half. Denies any nausea vomiting or diaphoresis. Does note some dyspnea and wears oxygen at home. Denies any fevers or cough. Pain Scale: 4 - Related Data Home Medications Medication Instructions Recorded Confirmed Albuterol Sulfate [Proair Hfa] 2 puff IH Q2H PRN 10/22/16 03/28/17 Budesonide/Formoterol 160/4.5 1 puff IH BIDR 10/22/16 03/28/17 [Symbicort 160/4.5] Tiotropium [Spiriva] 18 mcg IH DAILY 10/22/16 03/28/17 Insulin LISPRO [HumaLOG] See Protocol SQ TIDWM 11/24/16 03/28/17 BuPROPion SR (12 HR) [Wellbutrin 150 mg PO BID 11/25/16 03/28/17 SR] Glimepiride [Amaryl] 4 mg PO DAILY 11/25/16 03/28/17 Indapamide [Lozol] 2.5 mg PO DAILY 11/25/16 03/28/17 Nitroglycerin [Nitrostat] 0.4 mg SL Q5M PRN 11/25/16 03/28/17 Rosuvastatin Calcium 40 mg PO DAILY 11/25/16 03/28/17 Eszopiclone [Lunesta] 1 mg PO HS 03/07/17 03/28/17 Furosemide [Lasix] 20 mg PO DAILY 03/07/17 03/28/17 Metformin HCl [Glucophage] 1,000 mg PO BID 03/07/17 03/28/17 Metoprolol Succinate 50 mg PO DAILY 03/07/17 03/28/17 Insulin Glargine,Hum.rec.anlog 26 unit SQ BID 03/17/17 03/28/17 [Lantus Solostar] Potassium Chloride [Klor-Con 10 meq PO DAILY 03/17/17 03/28/17 Sprinkle] Previous Rx's Medication Instructions Recorded Aspirin 81 mg PO DAILY #30 tab 10/02/16 Clopidogrel [Plavix] 75 mg PO DAILY #30 tab 10/02/16 Magnesium Oxide [Mag-Ox] 400 mg PO DAILY #30 tab 10/15/16 metOLazone [Zaroxolyn] 2.5 mg PO DAILY #30 tab 10/27/16 Allergies Allergy/AdvReac Type Severity Reaction Status Date / Time codeine Allergy Itching, Verified 03/17/17 14:04 Rash ticagrelor [From Brilinta] Allergy See Verified 03/17/17 14:04 Comments All systems ED: reviewed and negative except as stated. Constitutional: Denies: fever ENT ED: Denies: ear pain Cardiovascular: Reports: chest pain Respiratory: Reports: dyspnea. Denies: cough Gastrointestinal: Denies: abdominal pain, nausea, vomiting Past Medical History - Past Medical History Source: patient Medical history: Reports: cardiomyopathy, CHF, COPD, coronary artery disease, diabetes, hyperlipidemia, hypertension, myocardial infarction Surgical history: Reports: angioplasty/stent, orthopedic, other, other Psychiatric history: Reports: no psych history - Social History Smoking Status: Former smoker Smokeless Tobacco Status: No Alcohol use: Reports: none Drug use: Reports: marijuana Physical Exam - General Limitations: no limitations General appearance: alert, in no apparent distress - Head Head exam: atraumatic, normocephalic, normal inspection - Eye Eye exam: Present: normal appearance, PERRL, EOMI - ENT ENT exam: normal exam, normal oropharynx, mucous membranes moist - Neck Neck exam: Present: normal inspection, full ROM - Chest Chest inspection: Present: normal inspection, symmetric chest wall rise - Respiratory Respiratory exam: Present: normal lung sounds bilaterally. Absent: respiratory distress - Cardiovascular Cardiovascular exam: Present: regular rate - Abdominal Exam Abdominal exam: Present: soft, Non-Tender - Extremities Exam Extremities exam: Present: normal inspection. Absent: pedal edema - Expanded Lower Extremity Exam Neurovascular/Tendon exam: Present: normal capillary refill - Back Exam Back exam: Present: normal inspection - Neurological Exam Neurological exam: Present: alert, oriented X3, CN II-XII intact - Skin Skin exam: Present: warm, dry, intact, normal color Course - Reevaluation(s) Reevaluation #1: Patient seen and examined. Patient was aware that he is having a heart attack given his elevated troponin. Patient will get a repeat EKG. Heparin were that the patient has no contraindications for anticoagulation. Patient denies any blood in stool or dark tarry stools. Patient's chronically anemic but is stable. Time: 18:15 Reevaluation #2: Chest pain has resolved after 1 sublingual nitroglycerin. Time: 18:40 Vital Signs Temperature 98 F 03/28/17 17:07 Pulse Rate 40 03/28/17 17:07 Respiratory Rate 16 03/28/17 17:07 Blood Pressure 156/77 03/28/17 17:07 O2 Sat by Pulse Oximetry 93 03/28/17 17:07 Temperature 98 F 03/28/17 17:07 Pulse Rate 40 03/28/17 17:07 Respiratory Rate 16 03/28/17 19:28 Blood Pressure 121/71 03/28/17 19:28 O2 Sat by Pulse Oximetry 93 03/28/17 17:07 Oxygen Delivery Oxygen Delivery Nasal Cannula Medical Decision Making - [facility] Narrative Medical decision making narrative: 62-year-old male presents for evaluation of chest pain. Patient notes nonexertional chest pain left-sided without radiation. Patient's EKG shows no evidence of STEMI. Patient does have bigeminy with intermittent left bundle. Similar to prior EKGs in the past. Patient was given aspirin and nitroglycerin help with pain control in the ER. Patient's troponin was elevated started on heparin drip. Patient was also noted to be hyperglycemic and give a history of congestive heart failure IV fluids were not given in the setting of elevated troponin. Patient received insulin. Patient was admitted to hospital service for further evaluation and monitoring regarding his in STEMI. - Lab Data Lab results reviewed: Yes I reviewed the patient's lab results. Result diagrams: 03/28/17 17:31 18 17:31 Lab Results 03/28/17 03/28/17 03/28/17 Range/Units 17:31 17:31 17:31 WBC 6.5 (4.3-11.1) K/mcL RBC 4.98 (4.19-5.50) M/mcL Hgb 12.8 L (12.9-16.9) g/dL Hct 41.7 (37.5-50.1) % MCV 83.7 (83.0-100.0) fL MCH 25.7 L (28.0-33.3) pg MCHC 30.7 L (31.6-35.5) g/dL RDW 15.6 H (11.5-14.5) % Plt Count 195 (140-400) K/mcL MPV 12.3 (9.4-12.4) fL Immature Gran % 0.2 (0-4) % Seg Neutrophils % 79.1 % Lymphocytes % 13.3 % Monocytes % 5.9 % Eosinophils % 1.2 % Basophils % 0.3 % Neutrophils # 5.1 (1.6-8.9) K/mcL Lymphocytes # 0.9 (0.6-4.6) K/mcL Monocytes # 0.4 (0.0-1.3) K/mcL Eosinophils # 0.1 (0.0-0.6) K/mcL Basophils # 0.0 (0.0-0.2) K/mcL PT (9.4-12.1) Seconds INR APTT (26.0-36.0) Seconds Sodium 130 L (136-145) mEq/L Potassium 4.2 (3.5-5.1) mEq/L Chloride 93 L (98-107) mEq/L Carbon Dioxide 33 H (23-29) mEq/L BUN 40 H (8-23) mg/dL Creatinine 1.11 (0.70-1.30) mg/dL Est GFR ( Amer) > 60 (> 60) Est GFR (Non-Af Amer) > 60 (> 60) BUN/Creatinine Ratio 36 H (6-26) Glucose 514 H* (70-105) mg/dL Calculated Osmolality 303 H (280-300) Calcium 8.8 (8.6-10.3) mg/dL Phosphorus 2.7 (2.7-4.5) mg/dL Magnesium 1.8 (1.6-2.6) mg/dL Troponin I 0.15 H* (< 0.04) ng/mL B-Natriuretic Peptide (Less than 100) pg/mL Beta-Hydroxybutyric Acd (0.02-0.27) mmol/L 03/28/17 03/28/17 03/28/17 Range/Units 17:31 17:31 17:31 WBC (4.3-11.1) K/mcL RBC (4.19-5.50) M/mcL Hgb (12.9-16.9) g/dL Hct (37.5-50.1) % MCV (83.0-100.0) fL MCH (28.0-33.3) pg MCHC (31.6-35.5) g/dL RDW (11.5-14.5) % Plt Count (140-400) K/mcL MPV (9.4-12.4) fL Immature Gran % (0-4) % Seg Neutrophils % % Lymphocytes % % Monocytes % % Eosinophils % % Basophils % % Neutrophils # (1.6-8.9) K/mcL Lymphocytes # (0.6-4.6) K/mcL Monocytes # (0.0-1.3) K/mcL Eosinophils # (0.0-0.6) K/mcL Basophils # (0.0-0.2) K/mcL PT 14.5 H (9.4-12.1) Seconds INR 1.3 APTT 28.9 (26.0-36.0) Seconds Sodium (136-145) mEq/L Potassium (3.5-5.1) mEq/L Chloride (98-107) mEq/L Carbon Dioxide (23-29) mEq/L BUN (8-23) mg/dL Creatinine (0.70-1.30) mg/dL Est GFR ( Amer) (> 60) Est GFR (Non-Af Amer) (> 60) BUN/Creatinine Ratio (6-26) Glucose (70-105) mg/dL Calculated Osmolality (280-300) Calcium (8.6-10.3) mg/dL Phosphorus (2.7-4.5) mg/dL Magnesium (1.6-2.6) mg/dL Troponin I (< 0.04) ng/mL B-Natriuretic Peptide 1290 H (Less than 100) pg/mL Beta-Hydroxybutyric Acd 0.12 (0.02-0.27) mmol/L - Radiology Data Radiology results reviewed: Yes I reviewed the patient's radiology results. - EKG Data EKG #1 EKG attestation: Yes I reviewed and interpreted this EKG. EKG shows normal: sinus rhythm Rate: normal Rhythm: NSR, other (Bigeminy) Lyman/QRS: normal, LBBB T wave inversions noted in: v1, v2, v3 Interpretation: unchanged when compared to prior tracing (date), nonspecific ST- T wave changes S.B.A.R. - S.B.A.Mario Alberto Situation: Demographics Background: Presenting Complaint Assessment: Vital Signs, Course and respsone to treatment, Patient/Family Expectation Recommendation: Barrier(s) to disposition, Recommendation based on pending studies, treatments, or consults S.B.A.RCandice Report Given to: Dr. Sigifredo Richard Repor Time: 18:47 Attestation Statement - Attestation Attestation: I examined this patient and my medical decision-making was reviewed with the Resident Physician, Dr. Turk. I agree with the documented findings, disposition and treatment plan as described except to the extent set forth below. Pt is a 62 yo wm, with hx CAD, DM, HTN, CHF, who presents with c/o CP and sent for "low HR". Pt c/o L sided, nonradiating pain. No syncope. Noother assocd sxs. I agree with pt's PE findigns as documented. Sinus bradycardia without ischemia on EKG. Pt received ASA and nitro with relief of pain. Pt with hyperglycemia, without acidosis, insulin given. Pt with elev trop, no EKG changes and pain now resolved. Will admit for further eval and mgmt, d/w hosp and accepted for admission
[2017-03-28 17:40] LABS: Basophils % 0.3 %; Eosinophils # 0.1 K/mcL (0.0-0.6); Eosinophils % 1.2 %; Hematocrit 41.7 % (37.5-50.1); Hemoglobin 12.8 g/dL (12.9-16.9); Immature Granulocytes % 0.2 % (0-4); Lymphocytes # 0.9 K/mcL (0.6-4.6); Lymphocytes % 13.3 %; Mean Corpuscular HGB Conc 30.7 g/dL (31.6-35.5); Mean Corpuscular Hemoglobin 25.7 pg (28.0-33.3); Mean Corpuscular Volume 83.7 fL (83.0-100.0); Mean Platelet Volume 12.3 fL (9.4-12.4); Monocytes # 0.4 K/mcL (0.0-1.3); Monocytes % 5.9 %; Neutrophils # 5.1 K/mcL (1.6-8.9); Platelet Count 195 K/mcL (140-400); Red Blood Count 4.98 M/mcL (4.19-5.50); Red Cell Distribution Width 15.6 % (11.5-14.5); Segmented Neutrophils % 79.1 %
[2017-03-28 18:04] LABS: BUN/Creatinine Ratio 36 (6-26); Blood Urea Nitrogen 40 mg/dL (8-23); Calcium 8.8 mg/dL (8.6-10.3); Carbon Dioxide 33 mEq/L (23-29); Chloride 93 mEq/L (98-107); Glucose 514 mg/dL (70-105); Magnesium 1.8 mg/dL (1.6-2.6); Osmolality,Calculated 303 (280-300); Phosphorous 2.7 mg/dL (2.7-4.5); Potassium 4.2 mEq/L (3.5-5.1); Sodium 130 mEq/L (136-145); eGFR For African Americans > 60 (> 60); eGFR For Non-African Americans > 60 (> 60)
[2017-03-28] MEDS ORDERED: 0.9 % Sodium Chloride 500 ML IVC ONE (18:07)
[2017-03-28] MEDS ORDERED: Insulin Human Regular 10 UNIT in 0.9 % Sodium Chloride 10 ML IV ONE (18:08)
[2017-03-28] MEDS ORDERED: *HR* Heparin 5,000 UNIT/ML VIAL IVP ONE (18:09)
[2017-03-28] MEDS ORDERED: *HR* Heparin 5,000 UNIT/ML VIAL IVP PRN ×2 (18:13)
[2017-03-28] MEDS ORDERED: Heparin 25,000 UNIT/500 ML D5W 25,000 UNIT/500 ML BAG IVC SCH (18:15)
[2017-03-28 18:24] LABS: INR 1.3; Prothrombin Time 14.5 Seconds (9.4-12.1)
[2017-03-28] MEDS ORDERED: 0.9 % Sodium Chloride 500 ML ONE (18:25)
[2017-03-28 18:26] LABS: Activated Partial Thrombo Time 28.9 Seconds (26.0-36.0)
[2017-03-28] MEDS ORDERED: Naloxone 0.4 MG/ML INJ IVP PRN (20:40)
[2017-03-28] MEDS ORDERED: *HR* Dextrose 50 % in Water (Syg) 50 ML SYRINGE IVP PRN (20:41)
[2017-03-28] MEDS ORDERED: Dextrose Gel 15 GM/37.5 ML TUBE PO PRN ×2 (20:41)
[2017-03-28] MEDS ORDERED: D5% in Water 1,000 ML IVC PRN ×2 (20:41→20:59)
[2017-03-28] MEDS ORDERED: Insulin LISPRO 300 UNITS/3 ML VIAL SQ ONE (20:42)
--- NOTE | 2017-03-28 20:45 | Internal Med History&Physical ---
Date of Encounter: 03/28/17 Time of Encounter: 20:44 Assessment and Plan (1) Bradycardia Current visit: Yes Status: Acute continue home med to include beta carmela and monitor in the hospital with tele (2) Elevated troponin Current visit: No Status: Acute trend trop repeat EKG in the a.m Will ask patient about symptoms in the morning given that he denied CP to me and admits to CP to the ED (3) Congestive heart failure Current visit: Yes Status: Acute compensated continue diuretics Qualifiers: Heart failure type: unspecified Heart failure chronicity: chronic Qualified Code(s): I50.9 - Heart failure, unspecified (4) Diabetes Current visit: No Status: Chronic poorly controlled continue lantus add high dose ISS will given 10 U insulin now and recheck qHS Qualifiers: Diabetes mellitus type: type 2 Diabetes mellitus complication status: without complication Qualified Code(s): E11.9 - Type 2 diabetes mellitus without complications; Z79.4 - longterm (current) use of insulin; Z79.4 - longterm (current) use of insulin; Z79.4 - longterm (current) use of insulin; Z79.4 - longterm (current) use of insulin (5) COPD (chronic obstructive pulmonary disease) Current visit: Yes Status: Acute chronic 4 L NC. add nicotine patch compensated Qualifiers: COPD type: chronic bronchitis Qualified Code(s): J41.0 - Simple chronic bronchitis (6) Essential hypertension Current visit: No Status: Chronic Internal Medicine - H&P: HPI Chief complaint: Bradycardia on routine PCP eval History of present illness: Mr. Suarez is a 62 year old male with hx of CAD s/p stents, poorly controlled DMII, HTN, CHF , COPD on chronic 4 L NC who presents for evaluation of bradycardia and troponemia. He was in good health and had a routine visit with his PCP - he had been asymptomatic during his scheduled routine PCP appt today. In the office, he reports to be bradycardic with pulse of 45 which prompted referral to the ED for eval. He denies CP symptoms on repeated questioning but he apparently told the ED that he had left sided chest pain w/o radiation for the past 1.5 hour as reviewed in the ED documentation. He admits to chronic SOB 2/2 to COPD. In the ED, repeat EKG personally reviewed noted rate 9, PVC, NSR and possible old changes. Trop was elevated. He was thus admitted for close monitor CXR completed in the ED but with final read pending. Unable to review image on PACS at current Past Med Surg Social Fam HX - Past Medical History Medical history: cardiomyopathy, CHF, COPD, coronary artery disease, diabetes, hyperlipidemia, hypertension, myocardial infarction Psychiatric history: no psych history - Past Surgical History Surgical History: angioplasty/stent, orthopedic, other, other - Social History Smoking Status: Former smoker Smokeless Tobacco Status: No Alcohol use: none Drug use: marijuana - Family History Mother Living Status: Cause of : [facility] Internal Medicine - H&P: Meds Aspirin 81 mg PO DAILY #30 tab 10/02/16 [Rx] Clopidogrel [Plavix] 75 mg PO DAILY #30 tab 10/02/16 [Rx] Magnesium Oxide [Mag-Ox] 400 mg PO DAILY #30 tab 10/15/16 [Rx] Albuterol Sulfate [Proair Hfa] 2 puff IH Q2H PRN 10/22/16 [History] Budesonide/Formoterol 160/4.5 [Symbicort 160/4.5] 1 puff IH BIDR 10/22/16 [ History] Tiotropium [Spiriva] 18 mcg IH DAILY 10/22/16 [History] metOLazone [Zaroxolyn] 2.5 mg PO DAILY #30 tab 10/27/16 [Rx] Insulin LISPRO [HumaLOG] See Protocol SQ TIDWM 11/24/16 [History] BuPROPion SR (12 HR) [Wellbutrin SR] 150 mg PO BID 11/25/16 [History] Glimepiride [Amaryl] 4 mg PO DAILY 11/25/16 [History] Indapamide [Lozol] 2.5 mg PO DAILY 11/25/16 [History] Nitroglycerin [Nitrostat] 0.4 mg SL Q5M PRN 11/25/16 [History] Rosuvastatin Calcium 40 mg PO DAILY 11/25/16 [History] Eszopiclone [Lunesta] 1 mg PO HS 03/07/17 [History] Furosemide [Lasix] 20 mg PO DAILY 03/07/17 [History] Metformin HCl [Glucophage] 1,000 mg PO BID 01/19/18 [History] Metoprolol Succinate 50 mg PO DAILY 03/07/17 [History] Insulin Glargine,Hum.rec.anlog [Lantus Solostar] 26 unit SQ BID 03/17/17 [ History] Potassium Chloride [Klor-Con Sprinkle] 10 meq PO DAILY 03/17/17 [History] 3 Allergy/AdvReac Type Severity Reaction Status Date / Time codeine Allergy Itching, Verified 03/17/17 14:04 Rash ticagrelor [From Brilinta] Allergy See Verified 03/17/17 14:04 Comments All Systems PM: A 10-system review of systems was performed and is negative for pertinent findings except as documented above in the HPI. Review of systems: ROS 14 point review of systems reviewed as best as possible given presentation. Pertinent positive or negative as per HPI or otherwise reviewed as negative - Constitutional Vitals: Temp Pulse Resp BP Pulse Ox 98 F 40 16 121/71 93 03/28/17 17:07 03/28/17 17:07 03/28/17 19:28 03/28/17 19:28 03/28/17 17:07 Exam: General - AAO x 3 Psych - Appropriate affect/speech. No agitation Eyes - MEERA. Eye lids intact. No scleral icterus Heart - Sinus. RRR. S1 and S2 present. No added HS/murmurs appreciated. No elevated JVD appreciated. Lung - Adequate air entry b/l, No crackles/wheezes appreciated GI - Soft, non-tender. No hepatosplenomegaly/ascites. BS+ - No CVA/suprapubic tenderness or palpable bladder distension Skin - Intact. No rash/petechiae/ecchymosis. Warm extremities MSK - Joints with normal ROM. No joint swellings Internal Med - H&P Results - Labs CBC & Chem 7: 03/28/17 17:31 03/28/17 17:31
[2017-03-28] MEDS ORDERED: Insulin LISPRO 300 UNITS/3 ML VIAL SQ SCH (21:00)
[2017-03-28] MEDS: Budesonide/Formoterol 160/4.5 MDI IH SCH (21:59)
[2017-03-28] MEDS: Nicotine 14 MG PATCH.TD24 TD SCH (22:17)
[2017-03-28] MEDS: Insulin LISPRO 300 UNITS/3 ML VIAL SQ SCH (22:19)
[2017-03-28] MEDS: Insulin DETEMIR 100 UNIT/ML X5UNITS SQ SCH (22:20)
[2017-03-28] MEDS: BuPROPion SR (12 HR) 150 MG TABLET PO SCH (22:21)
[2017-03-29] MEDS ORDERED: Insulin LISPRO 300 UNITS/3 ML VIAL SQ ONE (01:46)
[2017-03-29 03:28] LABS: Basophils % 0.3 %; Eosinophils # 0.1 K/mcL (0.0-0.6); Eosinophils % 1.1 %; Hematocrit 35.7 % (37.5-50.1); Immature Granulocytes % 0.3 % (0-4); Lymphocytes # 1.1 K/mcL (0.6-4.6); Lymphocytes % 16.4 %; Mean Corpuscular HGB Conc 30.8 g/dL (31.6-35.5); Mean Corpuscular Hemoglobin 25.6 pg (28.0-33.3); Mean Corpuscular Volume 83.2 fL (83.0-100.0); Mean Platelet Volume 12.6 fL (9.4-12.4); Monocytes # 0.5 K/mcL (0.0-1.3); Monocytes % 7.9 %; Neutrophils # 4.8 K/mcL (1.6-8.9); Platelet Count 183 K/mcL (140-400); Red Blood Count 4.29 M/mcL (4.19-5.50); Red Cell Distribution Width 15.4 % (11.5-14.5)
[2017-03-29 03:50] LABS: BUN/Creatinine Ratio 38 (6-26); Blood Urea Nitrogen 39 mg/dL (8-23); Calcium 8.9 mg/dL (8.6-10.3); Carbon Dioxide 32 mEq/L (23-29); Chloride 98 mEq/L (98-107); Glucose 419 mg/dL (70-105); Osmolality,Calculated 305 (280-300); Potassium 4.3 mEq/L (3.5-5.1); Sodium 134 mEq/L (136-145); eGFR For African Americans > 60 (> 60); eGFR For Non-African Americans > 60 (> 60)
[2017-03-29] MEDS: Budesonide/Formoterol 160/4.5 MDI IH SCH ×2 (07:35→20:20)
[2017-03-29] MEDS: Tiotropium 18 MCG inhalation IH SCH (07:36)
[2017-03-29] MEDS: Insulin LISPRO 300 UNITS/3 ML VIAL SQ SCH ×4 (09:35→21:30)
[2017-03-29] MEDS: Aspirin 81 MG TAB.CHEW PO SCH (09:43)
[2017-03-29] MEDS: Furosemide 20 MG TABLET PO SCH (09:43)
[2017-03-29] MEDS: Magnesium Oxide 400 MG TABLET PO SCH (09:43)
[2017-03-29] MEDS: Insulin DETEMIR 100 UNIT/ML X5UNITS SQ SCH ×2 (09:44→21:30)
[2017-03-29] MEDS: BuPROPion SR (12 HR) 150 MG TABLET PO SCH ×2 (09:44→21:30)
[2017-03-29] MEDS: Metoprolol XL (24 HR) Succ 50 MG TAB.ER.24H PO SCH (09:44)
[2017-03-29] MEDS: metOLazone 5 MG TABLET PO SCH (09:44)
[2017-03-29] MEDS: Nicotine 14 MG PATCH.TD24 TD SCH (09:44)
--- NOTE | 2017-03-29 14:37 | Internal Med Progress Note ---
Date of Encounter: 03/29/17 Time of Encounter: 14:30 - Assessment and plan (1) Chest pain Current Visit: No Status: Acute Assessment and plan: Continues to have intermittent chest discomfort. Nitrate started. Will ask cardiology to see tomorrow. Continue supportive care for now. Qualifiers: Chest pain type: chest pain due to myocardial ischemia Ischemic chest pain type: stable angina pectoris Qualified Code(s): I20.8 - Other forms of angina pectoris (2) Acute exacerbation of CHF (congestive heart failure) Current Visit: No Status: Acute Assessment and plan: Continue diuresis. Approaching his euvolemic state. Continue current management. Qualifiers: Qualified Code(s): I50.23 - Acute on chronic systolic (congestive) heart failure (3) Bradycardia Current Visit: Yes Status: Acute Assessment and plan: Appears to be persistently in ventricular bigeminy on monitor - rate is in 70s. Continue Metoprolol as is. (4) COPD (chronic obstructive pulmonary disease) Current Visit: Yes Status: Chronic Assessment and plan: Continue aerosols and supportive care. Qualifiers: COPD type: chronic bronchitis Qualified Code(s): J41.0 - Simple chronic bronchitis (5) Chronic respiratory failure with hypoxia Current Visit: No Status: Chronic Assessment and plan: Continue oxygen. (6) Diabetes Current Visit: No Status: Chronic Assessment and plan: Sugars have been high. Continue insulin and coverage. Qualifiers: Diabetes mellitus type: type 2 Diabetes mellitus complication status: with hyperglycemia Diabetes mellitus chcf insulin use: with terminal press operator use Qualified Code(s): E11.65 - Type 2 diabetes mellitus with hyperglycemia; Z79.4 - medical terminologist (current) use of insulin; Z79.4 - medical terminologist (current) use of insulin ; Z79.4 - intermediate (current) use of insulin; Z79.4 - intermediate (current) use of insulin (7) Ventricular bigeminy Current Visit: Yes Status: Acute Assessment and plan: Monitor. Keep K and Mag replaced. - Subjective Interval history: Mr Suarez is currently admitted for bradycardia and chest pain. He remains moderate to high risk due to potential for worsening clinical status. Mr Suarez continues to have some chest discomfort intermittently. He is short of breath as well. He continues to have frequent PVCs and bigeminy on the monitor. No fever or chills. No cough. - Constitutional Vitals: Temp Pulse Resp BP Pulse Ox 97.8 F 73 19 113/72 99 03/29/17 11:00 03/29/17 11:00 03/29/17 11:00 03/29/17 11:35 03/29/17 11:00 General appearance: Present: A&O X 3, pleasant, answers questions appropriately - Head Head exam: Present: normocephalic - Eye Eye exam: Present: EOMI, conjuntiva pink - ENT ENT exam: Present: mucous membranes dry - Respiratory Respiratory exam: Present: decreased breath sounds, rales. Absent: rhonchi, wheezes - Cardiovascular Cardiovascular exam: Present: irregular rhythm. Absent: tachycardia - GI/Abdominal GI/Abdominal exam: Present: soft. Absent: tenderness - Extremities Exam Extremities exam: Present: warm. Absent: tenderness Additional comments: Edema present - Neurological Exam Neurological exam: Present: alert, oriented X3, no focal deficits - Skin Skin exam: Present: warm. Absent: rash Internal Medicine: Result - Labs CBC & Chem 7: 03/29/17 02:07 03/29/17 02:07 Labs: Short CBC 03/29/17 Range/Units 02:07 WBC 6.5 (4.3-11.1) K/mcL Hgb 11.0 L D (12.9-16.9) g/dL Hct 35.7 L (37.5-50.1) % Plt Count 183 (140-400) K/mcL Neutrophils # 4.8 (1.6-8.9) K/mcL BMP 03/29/17 02:07 Sodium 134 L Potassium 4.3 Chloride 98 Carbon Dioxide 32 H BUN 39 H Creatinine 1.02 Glucose 419 H Calcium 8.9 Cardiac Enzymes 03/28/17 03/29/17 03/29/17 Range/Units 22:24 02:07 08:11 Troponin I 0.13 H* 0.13 H* 0.14 H* (< 0.04) ng/mL - ABG Interpretation ABG results: PT/INR, D-dimer PT 14.5 Seconds (9.4-12.1) H 03/28/17 17:31 Consult Discharge Plan - Plan Referrals: Jagdeep Rodriguez MD [Primary Care Provider] -
[2017-03-29] MEDS: Albuterol 2.5 MG/3 ML NEBULIZER IH PRN ×2 (15:35→20:20)
[2017-03-30] MEDS: Albuterol 2.5 MG/3 ML NEBULIZER IH PRN ×4 (00:11→21:12)
[2017-03-30] MEDS: Insulin LISPRO 300 UNITS/3 ML VIAL SQ SCH ×4 (07:42→21:00)
[2017-03-30] MEDS: Nicotine 14 MG PATCH.TD24 TD SCH (07:48)
[2017-03-30] MEDS: metOLazone 5 MG TABLET PO SCH (07:51)
[2017-03-30] MEDS: Furosemide 20 MG TABLET PO SCH (07:52)
[2017-03-30] MEDS: BuPROPion SR (12 HR) 150 MG TABLET PO SCH ×2 (07:52→20:59)
[2017-03-30] MEDS: Aspirin 81 MG TAB.CHEW PO SCH (07:52)
[2017-03-30] MEDS: Magnesium Oxide 400 MG TABLET PO SCH (07:52)
[2017-03-30] MEDS: Metoprolol XL (24 HR) Succ 50 MG TAB.ER.24H PO SCH (07:52)
[2017-03-30 08:34] LABS: Hemoglobin 12.3 g/dL (12.9-16.9); Mean Corpuscular HGB Conc 30.8 g/dL (31.6-35.5); Mean Corpuscular Hemoglobin 25.9 pg (28.0-33.3); Mean Corpuscular Volume 84.4 fL (83.0-100.0); Mean Platelet Volume 12.5 fL (9.4-12.4); Platelet Count 190 K/mcL (140-400); Red Blood Count 4.74 M/mcL (4.19-5.50); Red Cell Distribution Width 15.9 % (11.5-14.5)
[2017-03-30] MEDS: Tiotropium 18 MCG inhalation IH SCH (08:34)
[2017-03-30] MEDS: Budesonide/Formoterol 160/4.5 MDI IH SCH ×2 (08:35→21:12)
[2017-03-30] MEDS: Insulin DETEMIR 100 UNIT/ML X5UNITS SQ SCH ×2 (08:42→20:59)
[2017-03-30 08:56] LABS: BUN/Creatinine Ratio 33 (6-26); Blood Urea Nitrogen 36 mg/dL (8-23); Calcium 9.4 mg/dL (8.6-10.3); Carbon Dioxide 35 mEq/L (23-29); Chloride 97 mEq/L (98-107); Glucose 264 mg/dL (70-105); Osmolality,Calculated 302 (280-300); Potassium 4.8 mEq/L (3.5-5.1); Sodium 137 mEq/L (136-145); eGFR For African Americans > 60 (> 60); eGFR For Non-African Americans > 60 (> 60)
--- NOTE | 2017-03-30 10:40 | Cardiology Consult Note ---
Addendum entered and electronically signed by Edil Lee CNP 03/30/17 11:10 : Noted that isordil was added yesterday. Denies recurrent chest pain. Will continue at current dose. Original Note: Date of Encounter: 03/30/17 Time of Encounter: 10:00 Assessment and Plan (1) Elevated troponin Current Visit: No Status: Acute Mild adynamic troponin elevation in the setting of chronic troponin elevation. Similair toponin elevation during last two admissions. Known CAD and CHF. [facility] 09/30/16- 40% LMCA stenosis, 100% mLAD stenosis s/p PTCA and MEMO. 99% 1st diagonal artery stenosis s/p PTCA down to 80-90%. 20% stenosis mRCA, 40% stenosis RPDA. EF 25%. [facility] 10/14/16- Widely patent stent in the LAD. 70% stenosis 1st diagonal artery. EF 35%. TTE 03/07/17- EF 30-35%. Unchanged from previous. EKG with no acute change. Continue to monitor. (2) Chest pain Current Visit: No Status: Acute C/o atypical chest pain that is not similair to his previous MS. Chest pain mildly reproducible on my exam. Known CAD. Titrate anti-anginals as needed. Increase isordil. Ambulate in hallway. Mild troponin elevation as described above. Qualifiers: Chest pain type: chest pain due to myocardial ischemia Ischemic chest pain type: stable angina pectoris Qualified Code(s): I20.8 - Other forms of angina pectoris (3) PVC (premature ventricular contraction) Current Visit: No Status: Acute Initial EKG shows PVC. programmable logic controller assembler shows SR with frequent PVC and bigemeny. No bradycardia seen. Agree with continuing toprol xl. (4) Ischemic cardiomyopathy Current Visit: No Status: Chronic Known ischemic cardiomyoapthy. Last TTE 03/07/17 showed EF 30-35%. Currently appears euvolemic on exam. BLE edema resolved. BNP 1290, chronic elevation. Down 3 kg from last admit. CXR is pending. Continue oral lasix. Continue beta-carmela and aceI. He is a candidate for ICD and is awaiting EP referral in the out-pt setting. Discussion w patient/family: The assessment and plan as outlined above was discussed with the patient and/or family members who expressed understanding and agreement. All questions were answered. Thank you for involving us in the care of your patient. Please call with any questions. History of Present Illness Consult date: 03/30/17 Requesting physician: Griffin Mitchell Consult reason: Chest pain Chief complaint: Chest pain, low heart rate History of present illness: Mr. Suarez is a 62 year with a history of CAD s/p STEMI 09/2016, ICMP with EF 35%, ventricular tachycardia, and COPD. He was recommended to go to the ER when he was found to have bradycardia by his PCP. Patient states his HR was 45 bpm. He denies symptoms prior to his appt. Since admission he has developed intermittent chest pain. His pain is midsternal to left sided chest pain lasting 30 seconds at a time. He took NTG SL for his pain. He states th e pain was already gone before he took NTG. The pain is not like his prior MS. He was recently seen for reported bradycardia, CHF, and troponin elevation. He was found to have no bradycardia during his stay. He was found to have frequent PVC and bigemeny. During this stay he is also found to have frequent PVC and no significant bradycardia. He is currently pain free. Denies increased SOB. Reports his BLE edema has resolved since his last hospital admission. Cardiac testing: [facility] 09/30/16- 40% LMCA stenosis, 100% mLAD stenosis s/p PTCA and MEMO. 99% 1st diagonal artery stenosis s/p PTCA down to 80-90%. 20% stenosis mRCA, 40% stenosis RPDA. EF 25%. C 10/14/16- Widely patent stent in the LAD. 70% stenosis 1st diagonal artery. EF 35%. TTE 03/07/17- EF 30-35% with global and regional variations. Past Med Surg Social Fam HX - Past Medical History Medical history: cardiomyopathy, CHF, COPD, coronary artery disease, diabetes, hyperlipidemia, hypertension, myocardial infarction Psychiatric history: no psych history - Past Surgical History Surgical History: angioplasty/stent, orthopedic, other, other - Social History Smoking Status: Former smoker Smokeless Tobacco Status: No Alcohol use: none Drug use: marijuana - Family History Mother Living Status: Cause of : alzheimers Medications and Allergies Aspirin 81 mg PO DAILY #30 tab 10/02/16 [Rx] Clopidogrel [Plavix] 75 mg PO DAILY #30 tab 10/02/16 [Rx] Magnesium Oxide [Mag-Ox] 400 mg PO DAILY #30 tab 10/15/16 [Rx] Albuterol Sulfate [Proair Hfa] 2 puff IH Q2H PRN 10/22/16 [History] Budesonide/Formoterol 160/4.5 [Symbicort 160/4.5] 1 puff IH BIDR 10/22/16 [ History] Tiotropium [Spiriva] 18 mcg IH DAILY 10/22/16 [History] metOLazone [Zaroxolyn] 2.5 mg PO DAILY #30 tab 10/27/16 [Rx] Insulin LISPRO [HumaLOG] See Protocol SQ TIDWM 11/24/16 [History] BuPROPion SR (12 HR) [Wellbutrin SR] 150 mg PO BID 11/25/16 [History] Glimepiride [Amaryl] 4 mg PO DAILY 11/25/16 [History] Indapamide [Lozol] 2.5 mg PO DAILY 11/25/16 [History] Nitroglycerin [Nitrostat] 0.4 mg SL Q5M PRN 11/25/16 [History] Rosuvastatin Calcium 40 mg PO DAILY 11/25/16 [History] Eszopiclone [Lunesta] 1 mg PO HS 03/07/17 [History] Furosemide [Lasix] 20 mg PO DAILY 03/07/17 [History] Metformin HCl [Glucophage] 1,000 mg PO BID 03/07/17 [History] Metoprolol Succinate 50 mg PO DAILY 03/07/17 [History] Insulin Glargine,Hum.rec.anlog [Lantus Solostar] 26 unit SQ BID 03/17/17 [ History] Potassium Chloride [Klor-Con Sprinkle] 10 meq PO DAILY 03/17/17 [History] 3 Allergy/AdvReac Type Severity Reaction Status Date / Time codeine Allergy Itching, Verified 03/17/17 14:04 Rash ticagrelor [From Brilinta] Allergy See Verified 03/17/17 14:04 Comments All Systems Review: A 10-system review of systems was performed and is negative for pertinent findings except as documented above in the HPI. Physical Examination Vital Signs, Last 4 Hours Temp Pulse Resp BP Pulse Ox 03/30/17 08:35 18 96 03/30/17 07:25 97.6 F 74 18 111/71 96 General: Conversant, No Apparent Distress HEENT: Atraumatic, Normocephaly, Mucus Membranes Moist Neck: No JVD, Normal carotid pulses Cardiac: Reg Rate and Rhythm, Normal S1 and S2, No Murmur Lungs: Normal Breath Sounds, No Wheeze, Rales, Rhonchi Neuro: Alert and responsive, No focal deficits noted Abdomen: Soft, Non-Tender Skin: No rashes noted on visualized skin Musculoskeletal: No Chest Wall Tenderness Extremities: No Clubbing, No Cyanosis, No Edema, Normal Pulses Results 03/30/17 07:56 03/30/17 07:56 Lab Results 03/30/17 03/30/17 07:56 07:56 WBC 8.1 Hgb 12.3 L Hct 40.0 Plt Count 190 Sodium 137 Potassium 4.8 Chloride 97 L Carbon Dioxide 35 H BUN 36 H Creatinine 1.08 Glucose 264 H Calcium 9.4 Magnesium 2.0 - Imaging and Cardiology Echo: report reviewed Cardiac cath: report reviewed - EKG Interpretation EKG results cardiology: personally reviewed Consult Discharge Plan - Plan Referrals: Jagdeep Rodriguez MD [Primary Care Provider] -
--- NOTE | 2017-03-30 16:50 | Internal Med Progress Note ---
Date of Encounter: 03/30/17 Time of Encounter: 14:00 - Assessment and plan (1) Chest pain Current Visit: No Status: Acute Assessment and plan: Chest discomfort seems better with addition of isordil yesterday. Will continue at this dose. Qualifiers: Chest pain type: chest pain due to myocardial ischemia Ischemic chest pain type: stable angina pectoris Qualified Code(s): I20.8 - Other forms of angina pectoris (2) Acute exacerbation of CHF (congestive heart failure) Current Visit: No Status: Acute Assessment and plan: Doing somewhat better after diuresing Will continue overnight tonight and reassess in AM Qualifiers: Qualified Code(s): I50.23 - Acute on chronic systolic (congestive) heart failure (3) Bradycardia Current Visit: Yes Status: Ruled-out Assessment and plan: Appears to be persistently in ventricular bigeminy on monitor - rate is in 70s. Continue Metoprolol as is. (4) COPD (chronic obstructive pulmonary disease) Current Visit: Yes Status: Chronic Assessment and plan: Continue aerosols and supportive care. Pulmonology appt after discharge. Qualifiers: COPD type: chronic bronchitis Qualified Code(s): J41.0 - Simple chronic bronchitis (5) Chronic respiratory failure with hypoxia Current Visit: No Status: Chronic Assessment and plan: Continue oxygen. (6) Diabetes Current Visit: No Status: Chronic Assessment and plan: Sugars seem to be slowly improving. Continue current coverage. Qualifiers: Diabetes mellitus type: type 2 Diabetes mellitus complication status: with hyperglycemia Diabetes mellitus fpc insulin use: with fpc use Qualified Code(s): E11.65 - Type 2 diabetes mellitus with hyperglycemia; Z79.4 - long-term (current) use of insulin; Z79.4 - long-term (current) use of insulin ; Z79.4 - terminal gauger (current) use of insulin; Z79.4 - long-term (current) use of insulin (7) Ventricular bigeminy Current Visit: Yes Status: Acute Assessment and plan: Monitor. Keep K and Mag replaced. - Subjective Interval history: Mr Suarez is currently admitted for bradycardia and chest pain. He remains moderate to high risk due to potential for worsening clinical status. Mr Suarez has had no chest discomfort since starting Isordil yesterday. No fever or chills. Breathing OK at this time. Just took a shower. No bradycardia noted. - Constitutional Vitals: Temp Pulse Resp BP Pulse Ox 98.1 F 72 16 114/79 98 03/30/17 11:29 03/30/17 11:29 03/30/17 11:29 03/30/17 11:29 03/30/17 11:29 General appearance: Present: A&O X 3, pleasant, answers questions appropriately - Head Head exam: Present: normocephalic - Eye Eye exam: Present: EOMI, conjuntiva pink - ENT ENT exam: Present: mucous membranes dry - Respiratory Respiratory exam: Present: decreased breath sounds Additional comments: Scant bibasilar rales and rhonchi - Cardiovascular Cardiovascular exam: Present: irregular rhythm. Absent: bradycardia - GI/Abdominal GI/Abdominal exam: Present: soft. Absent: tenderness - Extremities Exam Extremities exam: Present: warm Additional comments: less edema today - Neurological Exam Neurological exam: Present: alert, oriented X3, no focal deficits - Skin Skin exam: Present: warm. Absent: rash Internal Medicine: Result - Labs CBC & Chem 7: 03/30/17 07:56 03/30/17 07:56 Labs: Short CBC 03/30/17 Range/Units 07:56 WBC 8.1 (4.3-11.1) K/mcL Hgb 12.3 L (12.9-16.9) g/dL Hct 40.0 (37.5-50.1) % Plt Count 190 (140-400) K/mcL [facility] 03/30/17 07:56 Sodium 137 Potassium 4.8 Chloride 97 L Carbon Dioxide 35 H BUN 36 H Creatinine 1.08 Glucose 264 H Calcium 9.4 - ABG Interpretation ABG results: PT/INR, D-dimer PT 14.5 Seconds (9.4-12.1) H 03/28/17 17:31 Consult Discharge Plan - Plan Referrals: Jagdeep Rodriguez MD [Primary Care Provider] -
[2017-03-31] MEDS: Albuterol 2.5 MG/3 ML NEBULIZER IH PRN ×3 (01:43→08:37)
[2017-03-31 07:41] VITALS: BP 129/72
[2017-03-31] MEDS: Tiotropium 18 MCG inhalation IH SCH (08:36)
[2017-03-31] MEDS: Budesonide/Formoterol 160/4.5 MDI IH SCH (08:36)
[2017-03-31] MEDS: Insulin LISPRO 300 UNITS/3 ML VIAL SQ SCH (08:49)
[2017-03-31] MEDS: Nicotine 14 MG PATCH.TD24 TD SCH (08:50)
[2017-03-31] MEDS: metOLazone 5 MG TABLET PO SCH (08:50)
[2017-03-31] MEDS: Furosemide 20 MG TABLET PO SCH (08:50)
[2017-03-31] MEDS: Insulin DETEMIR 100 UNIT/ML X5UNITS SQ SCH (08:50)
[2017-03-31] MEDS: Magnesium Oxide 400 MG TABLET PO SCH (08:52)
[2017-03-31] MEDS: Aspirin 81 MG TAB.CHEW PO SCH (08:53)
[2017-03-31] MEDS: Metoprolol XL (24 HR) Succ 50 MG TAB.ER.24H PO SCH (08:53)
[2017-03-31] MEDS: BuPROPion SR (12 HR) 150 MG TABLET PO SCH (08:53)
--- NOTE | 2017-03-31 09:45 | Discharge Summary ---
Date of Encounter: 03/31/17 Time of Encounter: 09:43 - Discharge Diagnosis (1) Chest pain Priority: Primary Status: Chronic Qualifiers: Chest pain type: chest pain due to myocardial ischemia Ischemic chest pain type: stable angina pectoris Qualified Code(s): I20.8 - Other forms of angina pectoris (2) Congestive heart failure Priority: Primary Status: Resolved Comments: Not on ACEI - most likely due to renal issues in past and issues with hypotension Qualifiers: Heart failure type: systolic Heart failure chronicity: acute on chronic Qualified Code(s): I50.23 - Acute on chronic systolic (congestive) heart failure (3) Bradycardia Priority: Secondary Status: Ruled-out (4) COPD (chronic obstructive pulmonary disease) Priority: Secondary Status: Chronic Qualifiers: COPD type: chronic bronchitis Qualified Code(s): J41.0 - Simple chronic bronchitis (5) Chronic respiratory failure with hypoxia Priority: Secondary Status: Chronic (6) Diabetes Priority: Secondary Status: Chronic Qualifiers: Diabetes mellitus type: type 2 Diabetes mellitus complication status: with hyperglycemia 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 transplanted heart: [place] heart Associated angina: without angina Qualified Code(s): I25.10 - Atherosclerotic heart disease of [place] coronary artery without angina pectoris (9) Essential hypertension Priority: Secondary Status: Chronic - Discharge Medications Prescriptions: Isosorbide DInitrate [Isordil] 10 mg PO 0800,1300,1800 #90 tablet Home Medications: Aspirin 81 mg PO DAILY #30 tab 10/02/16 [Rx] Clopidogrel [Plavix] 75 mg PO DAILY #30 tab 10/02/16 [Rx] Magnesium Oxide [Mag-Ox] 400 mg PO DAILY #30 tab 10/15/16 [Rx] Albuterol Sulfate [Proair Hfa] 2 puff IH Q2H PRN 10/22/16 [History] Budesonide/Formoterol 160/4.5 [Symbicort 160/4.5] 1 puff IH BIDR 10/22/16 [ History] Tiotropium [Spiriva] 18 mcg IH DAILY 10/22/16 [History] metOLazone [Zaroxolyn] 2.5 mg PO DAILY #30 tab 10/27/16 [Rx] Insulin LISPRO [HumaLOG] See Protocol SQ TIDWM 11/24/16 [History] BuPROPion SR (12 HR) [Wellbutrin SR] 150 mg PO BID 11/25/16 [History] Glimepiride [Amaryl] 4 mg PO DAILY 11/25/16 [History] Indapamide [Lozol] 2.5 mg PO DAILY 11/25/16 [History] Nitroglycerin [Nitrostat] 0.4 mg SL Q5M PRN 11/25/16 [History] Rosuvastatin Calcium 40 mg PO DAILY 11/25/16 [History] Eszopiclone [Lunesta] 1 mg PO HS 03/07/17 [History] Furosemide [Lasix] 20 mg PO DAILY 03/07/17 [History] Metformin HCl [Glucophage] 1,000 mg PO BID 03/07/17 [History] Metoprolol Succinate 50 mg PO DAILY 03/07/17 [History] Insulin Glargine,Hum.rec.anlog [Lantus Solostar] 26 unit SQ BID 03/17/17 [ History] Potassium Chloride [Klor-Con Sprinkle] 10 meq PO DAILY 03/17/17 [History] Isosorbide DInitrate [Isordil] 10 mg PO 0800,1300,1800 #90 tablet 03/31/17 [Rx] Nicotine Patch [Nicoderm] 14 mg TD DAILY patch.td24 03/31/17 [Rx] Allergies/Adverse Reactions: 3 Allergy/AdvReac Type Severity Reaction Status Date / Time codeine Allergy Itching, Verified 03/17/17 14:04 Rash ticagrelor [From Brilinta] Allergy See Verified 03/17/17 14:04 Comments Procedures/tests Complete & Pending: Procedures Performed prior 72 hours Category Date Time Status EKG [ECG 12 lead ECG] [ECG] AM 0600 Y 03/30/17 06:00 Ordered Date of admission: 03/29/17 14:17 Primary care physician: Jagdeep Rodriguez MD Consults: 03/29/17 16:46 Consult to Cardiology [CONS] Routine Comment: Consulting Provider: Cardiology Deanna Reason for Consult: Chest pain, bigeminy Call Completed: Yes Discharging clinician: Griffin Mitchell Anticipated date of discharge: 03/31/17 - Patient Status Disposition: Home, Self-Care Condition: Fair Functional capacity at discharge: independent ambulation Overall status at discharge: patient is progressing back to baseline - Discharge Instructions Follow Up With: Jagdeep Rodriguez MD [Primary Care Provider] - 04/10/17 8:30 am - Diet and Activity Activity: increase activity as tolerated Diet: diabetic diet, low fat, low cholesterol, low salt diet Hospital course: Mr. Suarez is a 62 year old male with hx of CAD, CHF and DM presented to ED from primary care office due to concern for bradycardia. Pt was evaluated in ED and admitted for further work up. Mr Suarez was admitted to [facility]. He was having intermittent chest pain and was started on PO Isordil with improvement in his symptoms. He was diuresed some and seen by cardiology who agreed with addition of nitrate. He had no acute issues during stay. On 03/31 he was feeling at baseline. He had been ambulating in [place]. He was afebrile with stable vitals and felt ready for discharge home. He is to have outpatient follow up with EP for AICD. - Time Spent with Patient Total time spent providing and/or coordinating discharge services: 40min - Constitutional Vitals: Temp Pulse Resp BP Pulse Ox 98.4 F 70 14 129/72 98 03/31/17 07:35 03/31/17 07:35 03/31/17 08:40 03/31/17 07:35 03/31/17 08:40 General appearance: Present: A&O X 3, pleasant, answers questions appropriately - Head Head exam: Present: normocephalic - Eye Eye exam: Present: EOMI, conjuntiva pink - ENT ENT exam: Present: mucous membranes dry - Respiratory Respiratory exam: Present: decreased breath sounds Additional comments: Bibasilar rales heard. - Cardiovascular Cardiovascular exam: Present: irregular rhythm. Absent: bradycardia, tachycardia - GI/Abdominal GI/Abdominal exam: Present: soft. Absent: tenderness - Extremities Exam Extremities exam: Present: warm. Absent: tenderness - Neurological Exam Neurological exam: Present: alert, oriented X3, no focal deficits - Skin Skin exam: Present: warm. Absent: rash
--- NOTE | 2017-03-31 16:14 | Electrocardiograph Report ---
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
--- NOTE | 2017-03-31 16:42 | Electrocardiograph Report ---
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
== END 2017-03-31 11:00 | disposition home or self-care (01) | DRG 302 ==
LOC: 2NENU 17:02 → EMEROO 17:02 → 2NENU 19:30
PROVIDERS: ADMIT Internal Medicine; ATTEND Internal Medicine

== ENCOUNTER 2017-09-19 10:40 | Inpatient (IN) ==
[2017-09-19] MEDS ORDERED: Azithromycin 500 MG in D5% in Water 250 ML IVPB ONE (10:58)
[2017-09-19] MEDS ORDERED: predniSONE 20 MG TABLET PO ONE (10:58)
[2017-09-19] MEDS ORDERED: Ipratropium/Albuterol Neb 3 ML IH ONE (10:58)
--- NOTE | 2017-09-19 11:05 | Emergency Department Note ---
Disposition Clinical Impression: Acute exacerbation of chronic obstructive airways disease, Elevated troponin CHF exacerbation Qualifiers: Heart failure type: systolic Qualified Code(s): I50.23 - Acute on chronic systolic (congestive) heart failure Disposition: Admitted As Inpatient Condition: Undetermined Referrals: Jagdeep Rodriguez MD [Primary Care Provider] - Forms: ED Satisfaction Letter Time of Disposition: 12:10 General Adult HPI - General Chief complaint: ED Shortness of Breath/Dyspnea Stated complaint: Pneumonia,SHERYL Time Seen by Provider: 09/19/17 10:47 Source: patient Mode of arrival: wheelchair Limitations: no limitations Nursing Notes Reviewed: Yes Vital Signs Reviewed: Yes - History of Present Illness HPI Narrative: 62-year-old male with recent diagnosis of pneumonia, COPD, arrives to the emergency department with worsening shortness of breath. The patient states he was discharged from the hospital roughly 5 days ago. The patient states that he was discharged on steroids but he is continued to experience some chills, shortness of breath requiring 2 L nasal cannula [id number] and generalized weakness. The patient denies any associative chest pain, nausea, abdominal pain. The patient states that he has no previous history of DVT or PE , no hemoptysis, no unilateral leg swelling. He does have bilateral lower extremity swelling with 2+ pitting edema. Patient also has a history of CHF. Patient states that he wants to be admitted because he is unsure why he is so short of breath. He has been taking all of his prescribed medications he was discharged with as prescribed. He is speaking in full sentences on examination. Pain Scale: 0 - Related Data Home Medications Medication Instructions Recorded Confirmed Albuterol Sulfate [Proair Hfa] 2 puff IH Q2H PRN 10/22/16 09/12/17 Budesonide/Formoterol 160/4.5 1 puff IH BIDR 10/22/16 09/12/17 [Symbicort 160/4.5] Tiotropium [Spiriva] 18 mcg IH DAILY 10/22/16 09/12/17 Insulin LISPRO [HumaLOG] 0 - 12 units SQ TIDWM 11/24/16 09/12/17 BuPROPion SR (12 HR) [Wellbutrin 150 mg PO BID 11/25/16 09/12/17 SR] Glimepiride [Amaryl] 4 mg PO DAILY 11/25/16 09/12/17 Indapamide [Lozol] 2.5 mg PO DAILY 11/25/16 09/12/17 Nitroglycerin [Nitrostat] 0.4 mg SL Q5M PRN 11/25/16 09/12/17 Metformin HCl [Glucophage] 1,000 mg PO BID 03/07/17 09/12/17 Metoprolol Succinate 50 mg PO DAILY 03/07/17 09/12/17 Insulin Glargine,Hum.rec.anlog 26 unit SQ BID 03/17/17 09/12/17 [Lantus Solostar] Magnesium Oxide [Mag-Ox] 400 mg PO BID 05/29/17 09/12/17 Valsartan [Diovan] 40 mg PO DAILY 05/29/17 09/12/17 Rosuvastatin Calcium 40 mg PO HS 09/12/17 09/12/17 Previous Rx's Medication Instructions Recorded Aspirin 81 mg PO DAILY #30 tab 10/02/16 Clopidogrel [Plavix] 75 mg PO DAILY #30 tab 10/02/16 Isosorbide DInitrate [Isordil] 10 mg PO 0800,1300,1800 #90 tablet 03/31/17 Furosemide [Lasix] 20 mg PO BID #0 09/14/17 Nicotine Patch [Nicoderm] 21 mg TD DAILY #30 patch.td24 09/14/17 levoFLOXacin [Levaquin] 500 mg PO DAILY #3 tablet 09/14/17 predniSONE [PredniSONE] 40 mg PO DAILY #10 tablet 09/14/17 Allergies Allergy/AdvReac Type Severity Reaction Status Date / Time codeine Allergy Itching, Verified 03/17/17 14:04 Rash ticagrelor [From Brilinta] Allergy See Verified 03/17/17 14:04 Comments All systems ED: reviewed and negative except as stated. Constitutional: Reports: chills, weakness. Denies: fever ENT ED: Denies: dysphagia Cardiovascular: Reports: dyspnea on exertion, edema. Denies: chest pain, orthopnea, syncope Respiratory: Reports: dyspnea, wheezes, sputum production. Denies: cough, hemoptysis Gastrointestinal: Denies: abdominal pain, nausea, vomiting Genitourinary: Denies: urgency, dysuria Musculoskeletal: Denies: back pain, neck pain Integumentary: Denies: rash Neurological: Denies: headache Past Medical History - Past Medical History Attestation: Yes The following information was validated with the patient. Source: patient, old records reviewed Medical history: Reports: cardiomyopathy, CHF, COPD, coronary artery disease, diabetes, hyperlipidemia, hypertension, myocardial infarction Surgical history: Reports: angioplasty/stent, orthopedic, other, other Psychiatric history: Reports: no psych history - Social History Smoking Status: Current every day smoker Smokeless Tobacco Status: No Alcohol use: Reports: none Drug use: Reports: marijuana Physical Exam - General Limitations: no limitations General appearance: alert, in no apparent distress - Head Head exam: atraumatic, normocephalic, normal inspection - Eye Eye exam: Present: normal appearance, PERRL, EOMI - ENT ENT exam: normal exam, normal oropharynx, mucous membranes moist - Neck Neck exam: Present: normal inspection, full ROM, trachea midline - Chest Chest inspection: Present: normal inspection, symmetric chest wall rise - Respiratory Respiratory exam: Present: wheezes (Diffuse, mild) - Cardiovascular Cardiovascular exam: Present: regular rate, normal rhythm, normal heart sounds - Abdominal Exam Abdominal exam: Present: soft, Non-Tender. Absent: tenderness, distention, guarding, rebound, rigidity - Extremities Exam Extremities exam: Present: full ROM, pedal edema (2+ pitting). Absent: tenderness - Neurological Exam Neurological exam: Present: alert, oriented X3 - Skin Skin exam: Present: warm, dry, intact, normal color Course Vital Signs Temperature 97.5 F L 09/19/17 10:43 Pulse Rate 71 09/19/17 10:43 Respiratory Rate 22 09/19/17 10:43 Blood Pressure 123/81 09/19/17 10:43 O2 Sat by Pulse Oximetry 94 09/19/17 10:43 Temperature 97.5 F L 09/19/17 10:43 Pulse Rate 71 09/19/17 10:43 Respiratory Rate 22 09/19/17 10:43 Blood Pressure 123/81 09/19/17 10:43 O2 Sat by Pulse Oximetry 94 09/19/17 10:43 Oxygen Delivery Oxygen Delivery Room Air Medical Decision Making - MDM Narrative Medical decision making narrative: Patient's workup in the emergency department demonstrates findings consistent with COPD exacerbation. There is also some components of congestive heart failure as the patient has bilateral lower extremity swelling and some pulmonary hypertension. In addition the patient's BNP is elevated. He also has an elevated troponin. The patient has had an elevated troponin over the past month or so but given the continued elevation combined with the patient's shortness of breath, the patient will be admitted to the hospital. He was administered aspirin as well as Lasix for his elevated troponin and likely CHF exacerbation. In addition the patient was given steroids and a DuoNeb here in the emergency department. The patient states he is resting comfortably at this time on 2 L nasal cannula 94%. The patient will be admitted to the hospital at this time for further workup and care. He agrees to the plan of care. No further questions or concerns noted. Accepted by Dr. Peng. - Medical Records Medical records reviewed: Yes I reviewed the patient's medical records. - Lab Data Lab results reviewed: Yes I reviewed the patient's lab results. Result diagrams: 09/19/17 11:12 09/19/17 11:12 Lab Results 09/19/17 09/19/17 09/19/17 Range/Units 11:12 11:12 11:12 WBC 17.5 H (4.3-11.1) K/mcL RBC 4.60 (4.19-5.50) M/mcL Hgb 13.3 D (12.9-16.9) g/dL Hct 40.4 (37.5-50.1) % MCV 87.8 (83.0-100.0) fL MCH 28.9 (28.0-33.3) pg MCHC 32.9 (31.6-35.5) g/dL RDW 13.8 (11.5-14.5) % Plt Count 174 (140-400) K/mcL MPV 12.7 H (9.4-12.4) fL Immature Gran % 0.6 (0-4) % Seg Neutrophils % 86.9 % Lymphocytes % 6.5 % Monocytes % 5.4 % Eosinophils % 0.5 % Basophils % 0.1 % Neutrophils # 15.2 H (1.6-8.9) K/mcL Lymphocytes # 1.1 (0.6-4.6) K/mcL Monocytes # 0.9 (0.0-1.3) K/mcL Eosinophils # 0.1 (0.0-0.6) K/mcL Basophils # 0.0 (0.0-0.2) K/mcL Sodium 138 (136-145) mEq/L Potassium 3.6 (3.5-5.1) mEq/L Chloride 98 (98-107) mEq/L Carbon Dioxide 35 H (23-29) mEq/L BUN 25 H (8-23) mg/dL Creatinine 1.10 (0.70-1.30) mg/dL Est GFR ( Amer) > 60 (> 60) Est GFR (Non-Af Amer) > 60 (> 60) BUN/Creatinine Ratio 23 (6-26) Glucose 260 H (70-105) mg/dL Calculated Osmolality 299 (280-300) Lactic Acid 1.9 (0.5-2.2) mmol/L Calcium 9.2 (8.6-10.3) mg/dL Troponin I 0.09 H* (< 0.04) ng/mL B-Natriuretic Peptide (Less than 100) pg/mL 09/19/17 Range/Units 11:12 WBC (4.3-11.1) K/mcL RBC (4.19-5.50) M/mcL Hgb (12.9-16.9) g/dL Hct (37.5-50.1) % MCV (83.0-100.0) fL MCH (28.0-33.3) pg MCHC (31.6-35.5) g/dL RDW (11.5-14.5) % Plt Count (140-400) K/mcL MPV (9.4-12.4) fL Immature Gran % (0-4) % Seg Neutrophils % % Lymphocytes % % Monocytes % % Eosinophils % % Basophils % % Neutrophils # (1.6-8.9) K/mcL Lymphocytes # (0.6-4.6) K/mcL Monocytes # (0.0-1.3) K/mcL Eosinophils # (0.0-0.6) K/mcL Basophils # (0.0-0.2) K/mcL Sodium (136-145) mEq/L Potassium (3.5-5.1) mEq/L Chloride (98-107) mEq/L Carbon Dioxide (23-29) mEq/L BUN (8-23) mg/dL Creatinine (0.70-1.30) mg/dL Est GFR ( Amer) (> 60) Est GFR (Non-Af Amer) (> 60) BUN/Creatinine Ratio (6-26) Glucose (70-105) mg/dL Calculated Osmolality (280-300) Lactic Acid (0.5-2.2) mmol/L Calcium (8.6-10.3) mg/dL Troponin I (< 0.04) ng/mL B-Natriuretic Peptide 1626 H (Less than 100) pg/mL - Radiology Data Radiology results reviewed: Yes I reviewed the patient's radiology results. Chest X-Ray 09/19/17 10:58 IMPRESSION: Cardiomegaly with probable pulmonary venous hypertension. No evidence of edema D/ / Yemi Lundberg MD / Yemi Lundberg MD Interpreting Provider: Yemi Lundberg MD - EKG Data EKG #1 EKG attestation: Yes I reviewed and interpreted this EKG. EKG results narrative: Heart rate [address] elevation or ST depression noted. EKG similar to EKG from September 12 no acute changes noted.
[2017-09-19 11:45] LABS: Basophils % 0.1 %; Eosinophils # 0.1 K/mcL (0.0-0.6); Eosinophils % 0.5 %; Hematocrit 40.4 % (37.5-50.1); Immature Granulocytes % 0.6 % (0-4); Lymphocytes # 1.1 K/mcL (0.6-4.6); Lymphocytes % 6.5 %; Mean Corpuscular HGB Conc 32.9 g/dL (31.6-35.5); Mean Corpuscular Hemoglobin 28.9 pg (28.0-33.3); Mean Corpuscular Volume 87.8 fL (83.0-100.0); Mean Platelet Volume 12.7 fL (9.4-12.4); Monocytes # 0.9 K/mcL (0.0-1.3); Monocytes % 5.4 %; Neutrophils # 15.2 K/mcL (1.6-8.9); Platelet Count 174 K/mcL (140-400); Red Cell Distribution Width 13.8 % (11.5-14.5); Segmented Neutrophils % 86.9 %
[2017-09-19 11:46] LABS: Hemoglobin 13.3 g/dL (12.9-16.9)
[2017-09-19 11:52] LABS: BUN/Creatinine Ratio 23 (6-26); Blood Urea Nitrogen 25 mg/dL (8-23); Calcium 9.2 mg/dL (8.6-10.3); Carbon Dioxide 35 mEq/L (23-29); Chloride 98 mEq/L (98-107); Glucose 260 mg/dL (70-105); Osmolality,Calculated 299 (280-300); Potassium 3.6 mEq/L (3.5-5.1); Sodium 138 mEq/L (136-145); eGFR For Non-African Americans > 60 (> 60)
[2017-09-19 12:00] LABS: Troponin I 0.09 ng/mL (< 0.04)
[2017-09-19] MEDS ORDERED: Furosemide 40 MG/4 ML VIAL IVP ONE (12:00)
[2017-09-19] MEDS ORDERED: Aspirin 325 MG TABLET PO ONE (12:01)
[2017-09-19] MEDS ORDERED: Naloxone 0.4 MG/ML INJ IVP PRN (12:47)
[2017-09-19] MEDS ORDERED: *HR* Dextrose 50 % in Water (Syg) 50 ML SYRINGE IVP PRN (12:52)
[2017-09-19] MEDS ORDERED: D5% in Water 1,000 ML IVC PRN (12:52)
[2017-09-19] MEDS ORDERED: Dextrose Gel 15 GM/37.5 ML TUBE PO PRN ×2 (12:52)
--- NOTE | 2017-09-19 13:05 | Emergency Department Note ---
Disposition Clinical Impression: Acute exacerbation of chronic obstructive airways disease, Elevated troponin CHF exacerbation Qualifiers: Heart failure type: systolic Qualified Code(s): I50.23 - Acute on chronic systolic (congestive) heart failure Disposition: Admitted As Inpatient Condition: Undetermined Referrals: Jagdeep Rodriguez MD [Primary Care Provider] - SOB HPI - General Chief Complaint: ED Shortness of Breath/Dyspnea Stated Complaint: Pneumonia,SHERYL Time Seen by Provider: 09/19/17 10:47 Source: patient Mode of arrival: wheelchair Limitations: no limitations Nursing Notes Reviewed: Yes Vital Signs Reviewed: Yes - Related Data Home Medications Medication Instructions Recorded Confirmed Albuterol Sulfate [Proair Hfa] 2 puff IH Q2H PRN 10/22/16 09/12/17 Budesonide/Formoterol 160/4.5 1 puff IH BIDR 10/22/16 09/12/17 [Symbicort 160/4.5] Tiotropium [Spiriva] 18 mcg IH DAILY 10/22/16 09/12/17 Insulin LISPRO [HumaLOG] 0 - 12 units SQ TIDWM 11/24/16 09/12/17 BuPROPion SR (12 HR) [Wellbutrin 150 mg PO BID 11/25/16 09/12/17 SR] Glimepiride [Amaryl] 4 mg PO DAILY 11/25/16 09/12/17 Indapamide [Lozol] 2.5 mg PO DAILY 11/25/16 09/12/17 Nitroglycerin [Nitrostat] 0.4 mg SL Q5M PRN 11/25/16 09/12/17 Metformin HCl [Glucophage] 1,000 mg PO BID 03/07/17 09/12/17 Metoprolol Succinate 50 mg PO DAILY 03/07/17 09/12/17 Insulin Glargine,Hum.rec.anlog 26 unit SQ BID 03/17/17 09/12/17 [Lantus Solostar] Magnesium Oxide [Mag-Ox] 400 mg PO BID 05/29/17 09/12/17 Valsartan [Diovan] 40 mg PO DAILY 05/29/17 09/12/17 Rosuvastatin Calcium 40 mg PO HS 09/12/17 09/12/17 Previous Rx's Medication Instructions Recorded Aspirin 81 mg PO DAILY #30 tab 10/02/16 Clopidogrel [Plavix] 75 mg PO DAILY #30 tab 10/02/16 Isosorbide DInitrate [Isordil] 10 mg PO 0800,1300,1800 #90 tablet 03/31/17 Furosemide [Lasix] 20 mg PO BID #0 09/14/17 Nicotine Patch [Nicoderm] 21 mg TD DAILY #30 patch.td24 09/14/17 levoFLOXacin [Levaquin] 500 mg PO DAILY #3 tablet 09/14/17 predniSONE [PredniSONE] 40 mg PO DAILY #10 tablet 09/14/17 Allergies Allergy/AdvReac Type Severity Reaction Status Date / Time codeine Allergy Itching, Verified 03/17/17 14:04 Rash ticagrelor [From Brilinta] Allergy See Verified 03/17/17 14:04 Comments Constitutional: Reports: chills, weakness. Denies: fever ENT ED: Denies: dysphagia Cardiovascular: Reports: dyspnea on exertion, edema. Denies: chest pain, orthopnea, syncope Respiratory: Reports: dyspnea, wheezes, sputum production. Denies: cough, hemoptysis Gastrointestinal: Denies: abdominal pain, nausea, vomiting Genitourinary: Denies: urgency, dysuria Musculoskeletal: Denies: back pain, neck pain Integumentary: Denies: rash Neurological: Denies: headache Past Medical History - Past Medical History Medical history: Reports: cardiomyopathy, CHF, COPD, coronary artery disease, diabetes, hyperlipidemia, hypertension, myocardial infarction Surgical history: Reports: angioplasty/stent, orthopedic, other, other Psychiatric history: Reports: no psych history - Social History Smoking Status: Current every day smoker Smokeless Tobacco Status: No Alcohol use: Reports: none Drug use: Reports: marijuana Physical Exam - General Limitations: no limitations General appearance: alert, in no apparent distress Course Vital Signs Temperature 97.5 F L 09/19/17 10:43 Pulse Rate 71 09/19/17 10:43 Respiratory Rate 22 09/19/17 10:43 Blood Pressure 123/81 09/19/17 10:43 O2 Sat by Pulse Oximetry 94 09/19/17 10:43 Temperature 97.5 F L 09/19/17 12:13 Pulse Rate 69 09/19/17 12:13 Respiratory Rate 18 09/19/17 12:13 Blood Pressure 119/92 09/19/17 12:13 O2 Sat by Pulse Oximetry 100 09/19/17 12:13 Oxygen Delivery Oxygen Delivery Nasal Cannula Shortness of Breath/Dyspnea - Lab Data Result diagrams: 09/19/17 11:12 09/19/17 11:12 Lab Results 09/19/17 09/19/17 09/19/17 Range/Units 11:12 11:12 11:12 WBC 17.5 H (4.3-11.1) K/mcL RBC 4.60 (4.19-5.50) M/mcL Hgb 13.3 D (12.9-16.9) g/dL Hct 40.4 (37.5-50.1) % MCV 87.8 (83.0-100.0) fL MCH 28.9 (28.0-33.3) pg MCHC 32.9 (31.6-35.5) g/dL RDW 13.8 (11.5-14.5) % Plt Count 174 (140-400) K/mcL MPV 12.7 H (9.4-12.4) fL Immature Gran % 0.6 (0-4) % Seg Neutrophils % 86.9 % Lymphocytes % 6.5 % Monocytes % 5.4 % Eosinophils % 0.5 % Basophils % 0.1 % Neutrophils # 15.2 H (1.6-8.9) K/mcL Lymphocytes # 1.1 (0.6-4.6) K/mcL Monocytes # 0.9 (0.0-1.3) K/mcL Eosinophils # 0.1 (0.0-0.6) K/mcL Basophils # 0.0 (0.0-0.2) K/mcL Sodium 138 (136-145) mEq/L Potassium 3.6 (3.5-5.1) mEq/L Chloride 98 (98-107) mEq/L Carbon Dioxide 35 H (23-29) mEq/L BUN 25 H (8-23) mg/dL Creatinine 1.10 (0.70-1.30) mg/dL Est GFR ( Amer) > 60 (> 60) Est GFR (Non-Af Amer) > 60 (> 60) BUN/Creatinine Ratio 23 (6-26) Glucose 260 H (70-105) mg/dL Calculated Osmolality 299 (280-300) Lactic Acid 1.9 (0.5-2.2) mmol/L Calcium 9.2 (8.6-10.3) mg/dL Troponin I 0.09 H* (< 0.04) ng/mL B-Natriuretic Peptide (Less than 100) pg/mL 09/19/17 Range/Units 11:12 WBC (4.3-11.1) K/mcL RBC (4.19-5.50) M/mcL Hgb (12.9-16.9) g/dL Hct (37.5-50.1) % MCV (83.0-100.0) fL MCH (28.0-33.3) pg MCHC (31.6-35.5) g/dL RDW (11.5-14.5) % Plt Count (140-400) K/mcL MPV (9.4-12.4) fL Immature Gran % (0-4) % Seg Neutrophils % % Lymphocytes % % Monocytes % % Eosinophils % % Basophils % % Neutrophils # (1.6-8.9) K/mcL Lymphocytes # (0.6-4.6) K/mcL Monocytes # (0.0-1.3) K/mcL Eosinophils # (0.0-0.6) K/mcL Basophils # (0.0-0.2) K/mcL Sodium (136-145) mEq/L Potassium (3.5-5.1) mEq/L Chloride (98-107) mEq/L Carbon Dioxide (23-29) mEq/L BUN (8-23) mg/dL Creatinine (0.70-1.30) mg/dL Est GFR ( Amer) (> 60) Est GFR (Non-Af Amer) (> 60) BUN/Creatinine Ratio (6-26) Glucose (70-105) mg/dL Calculated Osmolality (280-300) Lactic Acid (0.5-2.2) mmol/L Calcium (8.6-10.3) mg/dL Troponin I (< 0.04) ng/mL B-Natriuretic Peptide 1626 H (Less than 100) pg/mL Attestation Statement - Attestation Attestation: I, Jagdeep Bae, examined this patient and my medical decision-making was reviewed with the [employer]/PA/Advanced Practice Nurse/Resident Physician. I agree with the documented findings, disposition and treatment plan as described except to the extent set forth below. 62-year-old male presents emergency Department with concerns of increasing shortness of breath. Patient states he was recently admitted for pneumonia, he was discharged within the past week. Patient states his difficulty in breathing today has been increasing over the past few days. He states this feels similar to his previous COPD exacerbations. He also noted about 15 pounds of weight gain which is consistent with his history of congestive heart failure. He does report orthopnea as well as bilateral lower extremity edema. He takes 20 mg of Lasix twice a day and denies missing any doses. Patient had significant wheezing on posterior lung exam. Chest x-ray did not show acute infiltrate. He is given azithromycin for the benefits of its effects on microflora in the lungs however if he were to develop pneumonia he would require health-care associated antibiotics. Patient is afebrile in the emergency department this time. He did feel improved after administration of albuterol inhaler and steroids. He will be admitted to the hospital for further care and evaluation.
--- NOTE | 2017-09-19 13:06 | Internal Med History&Physical ---
<ChristophercornelioaleksandrRufus vergara - Last Filed: 09/19/17 13:57> Date of Encounter: 09/19/17 Time of Encounter: 12:15 Internal Medicine - H&P: HPI Chief complaint: SOB/Dyspnea/Orthopnea Admitted From: Emergency Dept Plans for Post Hospital Care: Home History of present illness: Mr. Suarez is a 62 year old male w/PMH of cardiomyopathy, CHF, COPD, CAD, diabetes, HLD, HTN, and previous myocardial infarction presents from the ED with chief complaint of shortness of breath, dyspnea, and orthopnea for the past 3 weeks which has become progressively worse. Patient states increase in weight of 20 pounds over the past 3 weeks as well. Patient discharged 5 days ago for diagnosis of suspected CO and pneumonia. States he becomes extremely short of breath on laying flat and must sleep sitting up. SOB with and without exertion. Denies chest pain. Reports he has not felt well since being discharged on Friday with some cough, chills, and fever. Patient denies nausea , vomiting, headache, changes in vision, chest pain, palpitations, abdominal pain, diarrhea, constipation, dizziness, lightheadedness, numbness, tingling, pre-syncope, or syncope. Past Med Surg Social Fam HX - Past Medical History Source: patient, old records reviewed, obtained from family Medical history: cardiomyopathy, CHF, COPD, coronary artery disease, diabetes, hyperlipidemia, hypertension, myocardial infarction Additional medical history: CO X's 6,. 5 stents Psychiatric history: no psych history - Past Surgical History Surgical History: angioplasty/stent, orthopedic, other, other Additional surgical history: left ankle surgery. - Social History Smoking Status: Current every day smoker Smokeless Tobacco Status: No Alcohol use: none Drug use: marijuana Occupational status: previously employed Current living situation: Home Activity Level: Independent ambulation, Uses cane/walker Recent Out of Country Travel Within the Last 8 Weeks: No Exposure or Possible Exposure to Illness During Travel: No - Family History Mother Race: Family Member Ethnicity: Non- Living Status: Age at : 75 Cause of : Alzheimer's disease Hx Family Neurologic Disorders: Yes (Alzheimer's disease) Father Race: Family Member Ethnicity: Non- Living Status: Age at : 72 Cause of : Liver cancer Hx Family Cardiac Disorders: Yes (CO @ age of 40) Hx Family Cancer: Yes (Liver) Grandfather Race: Family Member Ethnicity: Non- Living Status: Age at : 86 Cause of : CO Hx Family Cardiac Disorders: Yes (CO, CAD) Brother Race: Family Member Ethnicity: Non- Living Status: Still Living Hx Family Cardiac Disorders: Yes (CABG) Hx Family Respiratory Disorders: Yes (COPD) Sister Race: Family Member Ethnicity: Non- Living Status: Still Living Hx Family Medical Disorders: No Internal Medicine - H&P: Meds Aspirin 81 mg PO DAILY #30 tab 10/02/16 [Rx] Clopidogrel [Plavix] 75 mg PO DAILY #30 tab 10/02/16 [Rx] Albuterol Sulfate [Proair Hfa] 2 puff IH Q2H PRN 10/22/16 [History] Budesonide/Formoterol 160/4.5 [Symbicort 160/4.5] 1 puff IH BIDR 10/22/16 [ History] Tiotropium [Spiriva] 18 mcg IH DAILY 10/22/16 [History] Insulin LISPRO [HumaLOG] 0 - 12 units SQ TIDWM 11/24/16 [History] BuPROPion SR (12 HR) [Wellbutrin SR] 150 mg PO BID 11/25/16 [History] Glimepiride [Amaryl] 4 mg PO DAILY 11/25/16 [History] Indapamide [Lozol] 2.5 mg PO DAILY 11/25/16 [History] Nitroglycerin [Nitrostat] 0.4 mg SL Q5M PRN 11/25/16 [History] Metformin HCl [Glucophage] 1,000 mg PO BID 03/07/17 [History] Metoprolol Succinate 50 mg PO DAILY 03/07/17 [History] Insulin Glargine,Hum.rec.anlog [Lantus Solostar] 26 unit SQ BID 03/17/17 [ History] Isosorbide DInitrate [Isordil] 10 mg PO 0800,1300,1800 #90 tablet 03/31/17 [Rx] Magnesium Oxide [Mag-Ox] 400 mg PO BID 05/29/17 [History] Valsartan [Diovan] 40 mg PO DAILY 05/29/17 [History] Rosuvastatin Calcium 40 mg PO HS 09/12/17 [History] Furosemide [Lasix] 20 mg PO BID #0 09/14/17 [Rx] Nicotine Patch [Nicoderm] 21 mg TD DAILY #30 patch.td24 09/14/17 [Rx] levoFLOXacin [Levaquin] 500 mg PO DAILY #3 tablet 09/14/17 [Rx] Potassium Chloride [Klor-Con 10] 10 meq PO BID 09/19/17 [History] predniSONE [PredniSONE] 40 mg PO DAILY 09/19/17 [History] 3 Allergy/AdvReac Type Severity Reaction Status Date / Time codeine Allergy Itching, Verified 09/19/17 13:05 Rash ticagrelor [From Brilinta] Allergy See Verified 09/19/17 13:05 Comments All Systems PM: A 10-system review of systems was performed and is negative for pertinent findings except as documented above in the HPI. - Constitutional Constitutional: as per HPI, weight gain (20 lbs in 3 weeks), no chills, no fever (s), no night sweats - EENT Eyes: no change in vision, no discharge, no pain, no photophobia Ears: no ear discharge, no ear pain, no tinnitus Nose, mouth and throat: no dysphagia, no nasal discharge, no neck pain, no sore throat - Breasts Breasts: as per HPI - Cardiovascular Cardiovascular ROS IM: as per HPI, dyspnea, dyspnea on exertion, edema ( Bilateral pedal edema), orthopnea, no chest pain, no diaphoresis, no lightheadedness, no palpitations, no syncope - Respiratory Respiratory: as per HPI, cough, dyspnea, dyspnea on exertion, wheezing, no excessive phlegm production - Gastrointestinal Gastrointestinal: no abdominal pain, no diarrhea, no hematemesis, no hematochezia, no melena, no nausea, no vomiting - Genitourinary Genitourinary ROS male: as per HPI - Musculoskeletal Musculoskeletal ROS IM: no numbness, no tingling - Integumentary Integumentary IM: no rash, no unusual bruising - Neurological Neurological ROS: no confusion, no convulsions, no focal weakness, no numbness, no tingling, no tremor(s) - Psychiatric Psychiatric: as per HPI - Endocrine Endocrine IM: as per HPI - Hematologic/Lymphatic Hematologic/Lymphatic: no easy bruising - Allergic/Immunologic Allergic/Immunologic: as per HPI - Constitutional Vitals: Temp Pulse Resp BP Pulse Ox 97.5 F L 69 18 119/92 100 09/19/17 12:13 09/19/17 12:13 09/19/17 12:13 09/19/17 12:13 09/19/17 12:13 General appearance: Present: cooperative, mild distress (SOB), A&O X 3, pleasant , obese, answers questions appropriately - Head Head exam: Present: atraumatic, normocephalic - Eye Eye exam: Present: PERRL, conjuntiva pink, sclera anicteric Pupils: Present: PERRL - ENT ENT exam: Present: normal exam - Neck Neck exam general surgery: Present: normal inspection, supple, trachea midline. Absent: lymphadenopathy - Respiratory Respiratory exam: Present: accessory muscle use, wheezes. Absent: rales, rhonchi - Cardiovascular Cardiovascular exam: Present: RRR, +S1, +S2. Absent: diastolic murmur, gallop, rubs, systolic murmur - GI/Abdominal GI/Abdominal exam: Present: normal bowel sounds, soft, no peritoneal signs. Absent: distended, tenderness - Rectal Rectal exam: Present: deferred - Additional comments: exam deferred. - Extremities Exam Extremities exam: Present: pedal edema (2+ pitting edema bilaterally), warm, radial pulses palpable and symmetrical. Absent: calf tenderness, cyanotic - Back Exam Back exam: Present: normal inspection - Neurological Exam Neurological exam: Present: CN II-XII intact, oriented X3, no focal deficits. Absent: pronater drift, facial droop, speech deficit - Psychiatric Psychiatric exam: Present: normal affect, normal mood - Skin Skin exam: Present: dry, intact Internal Med - H&P Results - Labs CBC & Chem 7: 09/19/17 11:12 09/19/17 11:12 - EKG Data EKG shows normal: sinus rhythm - EKG Data Prior EKG available for review: yes EKG comments: 09/19/17 13:13 EKG dated 09/12/17 shows sinus rhythm with occasional ventricular premature complexes, marked left axis deviation, anteroseptal myocardial infarction of indeterminate age. EKG dated 09/19/17 shows sinus rhythm with occasional ventricular premature complexes, left anterior fascicular block, anteroseptal myocardial infarction of indeterminate age. - Diagnostic Studies Chest x-ray Additional comments: Impressions Chest X-Ray 09/19/17 10:58 IMPRESSION: Cardiomegaly with probable pulmonary venous hypertension. No evidence of edema D/ / Yemi Lundberg MD / Yemi Lundberg MD Interpreting Provider: Yemi Lundberg MD - Assessment and plan (1) Acute congestive heart failure Current Visit: Yes Status: Acute Assessment and plan: Acute congestive heart failure on admission with BNP of 1626. Pt. reports shortness of breath, dyspnea, and orthopnea for the past 3 weeks which has become progressively worse. Patient states increase in weight of 20 pounds over the past 3 weeks as well. Patient discharged 5 days ago for diagnosis of suspected CO and pneumonia. States he becomes extremely short of breath on laying flat and must sleep sitting up. SOB with and without exertion. Echocardiogram dated 09/13/17 shows LVEF of 35%, global and regional LV systolic dysfunction, LV apex not optimally visualized, mildly dilated left ventricle, moderate left ventricular diastolic dysfunction, normal right ventricular structure and function, no significant valvular dysfunction, and no pulmonary hypertension. 1.5L daily fluid restriction. Hold pts. PO lasix (40 mg BID) and administer IVP lasix 60 mg BID. Monitor I&O and daily weight. Continuous cardiac telemetry. Continue patient's HTN and HLD medications. Patient discussed with Dr. Peng who agrees with plan of care. Patient is high risk for further morbidity and respiratory/cardiac distress based on current symptoms of acute congestive heart failure, elevated troponin of 0.09, leukocytosis of 17.5 with recent discharge for PNA, 20 pound fluid overload over the past 3 weeks, LVEF 35% on last echocardiogram dated 09/13/17, history; and current risk factors of HLD, HTN, COPD, CHF, and current tobacco abuse. Observation. Qualifiers: Heart failure type: combined systolic and diastolic Qualified Code(s): I50.41 - Acute combined systolic (congestive) and diastolic (congestive) heart failure (2) Dyspnea Current Visit: Yes Status: Acute Assessment and plan: Acute on chronic SOB which has worsened over the past 3 weeks. Pt. reports orthopnea. History of chronic CHF and COPD with bronchitis. Supplemental O2 with titration and SPO2 monitoring. We will continue patient's inhalers and add DuoNeb's every 4 hours scheduled as well as Mucinex for cough. Qualifiers: Dyspnea type: shortness of breath Qualified Code(s): R06.02 - Shortness of breath; R06.00 - Dyspnea, unspecified; R06.01 - Orthopnea (3) Elevated troponin Current Visit: Yes Status: Acute Assessment and plan: Acutely elevated troponin of 0.09 on admission, most likely due to demand ischemia related to current CHF exacerbation. Patient denies any chest pain on exam. Will trend 2. Continuous cardiac telemetry. (4) Tobacco abuse counseling Current Visit: Yes Status: Acute Assessment and plan: Acute tobacco abuse counseling >10 minutes. Pt. educated on dangers of continued tobacco use with respect to previous CO in current CHF and COPD diagnoses as well as methods for cessation. 21 mg nicotine patch ordered daily. (5) HTN (hypertension) Current Visit: Yes Status: Chronic Assessment and plan: Hx of chronic HTN. Monitor pt. and VS. continue patient's Lozol, isosorbide, metoprolol, and valsartan. Qualifiers: Hypertension type: essential hypertension Qualified Code(s): I10 - Essential (primary) hypertension (6) HLD (hyperlipidemia) Current Visit: Yes Status: Chronic Assessment and plan: Hx of chronic HLD. Lipid panel in a.m. labs. Continue patient's rosuvastatin. Qualifiers: Hyperlipidemia type: pure hypercholesterolemia Qualified Code(s): E78.00 - Pure hypercholesterolemia, unspecified; E78.0 - Pure hypercholesterolemia (7) CAD (coronary artery disease) Current Visit: Yes Status: Chronic Assessment and plan: Hx of chronic CAD. Previous CO w/stent placement. Continue patient's Lozol, Plavix, metoprolol, valsartan, isosorbide, and rosuvastatin. Continuous cardiac telemetry. Echocardiogram dated 09/13/17 shows LVEF of 35%, global and regional LV systolic dysfunction, LV apex not optimally visualized, mildly dilated left ventricle, moderate left ventricular diastolic dysfunction, normal right ventricular structure and function, no significant valvular dysfunction, and no pulmonary hypertension. Qualifiers: Coronary Disease-Associated Artery/Lesion type: [place] artery [place] vs. transplanted heart: [place] heart Associated angina: without angina Qualified Code(s): I25.10 - Atherosclerotic heart disease of [place] coronary artery without angina pectoris (8) COPD (chronic obstructive pulmonary disease) Current Visit: Yes Status: Chronic Assessment and plan: Hx of chronic COPD. Pt. discharged 5 days ago w/dx of PNA. Supplemental O2 with titration and SPO2 monitoring. We will continue patient's inhalers. DuoNebs Q4HR scheduled. IVPB azithromycin 500 mg daily for bronchitis coverage. Qualifiers: COPD type: chronic bronchitis Chronic bronchitis type: simple Qualified Code(s): J41.0 - Simple chronic bronchitis (9) Diabetes Current Visit: Yes Status: Chronic Assessment and plan: Hx of chronic diabetes controlled with oral antihyperglycemic medications and insulin. Hold patient's oral medications and continue twice a day insulin and add low-dose correction insulin sliding scale with hypoglycemic protocol. BG checks before meals at bedtime. A1c in a.m. labs. Qualifiers: Diabetes mellitus type: type 2 Diabetes mellitus jail insulin use: with technician terminal and repeater use Diabetes mellitus complication status: with hyperglycemia Qualified Code(s): E11.65 - Type 2 diabetes mellitus with hyperglycemia; Z79.4 - snf (current) use of insulin; Z79.4 - snf (current) use of insulin; Z79.4 - oil heaterman (current) use of insulin; Z79.4 - oil heaterman (current ) use of insulin (10) Tobacco abuse Current Visit: Yes Status: Chronic Assessment and plan: Hx of chronic tobacco abuse. Pt. reports he is currently smoking >1PPD. 21 mg nicotine patch ordered. (11) DVT prophylaxis Current Visit: Yes Status: Acute Assessment and plan: Heparin 5000 units subcutaneous every 8 for DVT prophylaxis. Monitor patient for signs of bleeding. (12) Leukocytosis Current Visit: Yes Status: Acute Assessment and plan: Acute leukocytosis with WBC of 17.5 on admission. Patient discharged 5 days ago with diagnosis of pneumonia. Chest x-ray negative for continued signs of pneumonia however patient states fever and chills since discharge. Respiratory infection panel ordered. Blood cultures 2 ordered. Legionella and strep pneumoniae antigens ordered. IVPB azithromycin 500 mg daily for infection coverage for patient's bronchitis. Patient does not currently meet sepsis criteria but will be monitored closely. Monitor patient and follow-up labs. Qualifiers: Leukocytosis type: unspecified Qualified Code(s): D72.829 - Elevated white blood cell count, unspecified - Time Spent With Patient Total time spent is greater than 50% in coordination of care (as documented) at patient's floor/unit and/or counseling patient: Greater than 35 minutes <Yahir Peng - Last Filed: 09/20/17 07:50> Date of Encounter: 09/20/17 Internal Medicine - H&P: HPI History of present illness: Mr. Suarez is a 62 year old male All Systems PM: A 10-system review of systems was performed and is negative for pertinent findings except as documented above in the HPI. - Constitutional Vitals: Temp Pulse Resp BP Pulse Ox 97.4 F L 62 18 116/67 96 09/20/17 07:17 09/20/17 03:55 09/20/17 07:32 09/20/17 07:17 09/20/17 07:32 Internal Med - H&P Results - Labs CBC & Chem 7: 09/20/17 04:28 09/20/17 04:28 Labs: Short CBC 09/20/17 Range/Units 04:28 WBC 14.3 H (4.3-11.1) K/mcL Hgb 12.9 (12.9-16.9) g/dL Hct 39.7 (37.5-50.1) % Plt Count 169 (140-400) K/mcL Neutrophils # 12.1 H (1.6-8.9) K/mcL BMP 09/20/17 04:28 Sodium 137 Potassium 3.9 Chloride 96 L Carbon Dioxide 35 H BUN 27 H Creatinine 1.07 Glucose 392 H Calcium 8.7 Cardiac Enzymes 09/19/17 09/19/17 Range/Units 17:00 22:52 Troponin I 0.09 H* 0.08 H* (< 0.04) ng/mL Liver Function 09/20/17 Range/Units 04:28 Total Bilirubin 0.3 (0.3-1.0) mg/dL AST 10 L (13-39) Units/L ALT 22 (7-52) Units/L Alkaline Phosphatase 119 H (34-104) Units/L Albumin 3.2 L (3.5-5.7) g/dL - Attending Attestation Discussed patient with DORIS and agree with assessment and plan as above. Patient is a 62-year-old male who presents with shortness of breath found to have acute on chronic heart failure exacerbation with COPD exacerbation. Suspect elevated troponin secondary to demand ischemia. On physical exam patient has signs of volume overload with lower extremity edema Will continue IV diuresis and monitor troponins in addition to treatment of COPD exacerbation with azithromycin and DuoNebs. - Assessment and plan (1) Diabetes Current Visit: Yes Status: Chronic Qualifiers: Diabetes mellitus type: type 2 Diabetes mellitus technician terminal and repeater insulin use: with technician terminal and repeater use Diabetes mellitus complication status: with hyperglycemia Qualified Code(s): E11.65 - Type 2 diabetes mellitus with hyperglycemia; Z79.4 - oil heaterman (current) use of insulin; Z79.4 - snf (current) use of insulin; Z79.4 - oil heaterman (current) use of insulin; Z79.4 - snf (current ) use of insulin (2) Dyspnea Current Visit: Yes Status: Acute Qualifiers: Dyspnea type: shortness of breath Qualified Code(s): R06.02 - Shortness of breath; R06.00 - Dyspnea, unspecified; R06.01 - Orthopnea (3) DVT prophylaxis Current Visit: Yes Status: Acute (4) COPD (chronic obstructive pulmonary disease) Current Visit: Yes Status: Chronic Qualifiers: COPD type: chronic bronchitis Chronic bronchitis type: simple Qualified Code(s): J41.0 - Simple chronic bronchitis (5) CAD (coronary artery disease) Current Visit: Yes Status: Chronic Qualifiers: Coronary Disease-Associated Artery/Lesion type: [place] artery [place] vs. transplanted heart: [place] heart Associated angina: without angina Qualified Code(s): I25.10 - Atherosclerotic heart disease of [place] coronary artery without angina pectoris (6) Tobacco abuse Current Visit: Yes Status: Chronic (7) Acute congestive heart failure Current Visit: Yes Status: Acute Qualifiers: Heart failure type: combined systolic and diastolic Qualified Code(s): I50.41 - Acute combined systolic (congestive) and diastolic (congestive) heart failure (8) HTN (hypertension) Current Visit: Yes Status: Chronic Qualifiers: Hypertension type: essential hypertension Qualified Code(s): I10 - Essential (primary) hypertension (9) HLD (hyperlipidemia) Current Visit: Yes Status: Chronic Qualifiers: Hyperlipidemia type: pure hypercholesterolemia Qualified Code(s): E78.00 - Pure hypercholesterolemia, unspecified; E78.0 - Pure hypercholesterolemia (10) Tobacco abuse counseling Current Visit: Yes Status: Acute (11) Elevated troponin Current Visit: Yes Status: Acute (12) Leukocytosis Current Visit: Yes Status: Acute Qualifiers: Leukocytosis type: unspecified Qualified Code(s): D72.829 - Elevated white blood cell count, unspecified - Time Spent With Patient Total time spent is greater than 50% in coordination of care (as documented) at patient's floor/unit and/or counseling patient:
[2017-09-19] MEDS ORDERED: Nitroglycerin 0.4 MG TAB.SUBL SL PRN (13:20)
[2017-09-19] MEDS: Nicotine 21 MG PATCH.TD24 TD SCH (15:23)
[2017-09-19] MEDS: *HR* Heparin 5,000 UNIT/ML VIAL SQ SCH ×2 (15:23→22:22)
[2017-09-19] MEDS: Ipratropium/Albuterol Neb 3 ML IH SCH ×3 (16:08→23:46)
[2017-09-19] MEDS ORDERED: Insulin LISPRO 300 UNITS/3 ML VIAL SQ SCH ×3 (16:30→21:00)
[2017-09-19] MEDS: Insulin LISPRO 300 UNITS/3 ML VIAL SQ SCH ×2 (17:17→20:35)
[2017-09-19 19:31] LABS: Adenovirus Not Detected (Not Detect); Bordetella Pertussis Not Detected (Not Detect); Chlamydophila pneumoniae Not Detected (Not Detect); Coronavirus 229E Not Detected (Not Detect); Coronavirus HKU1 Not Detected (Not Detect); Coronavirus NL63 Not Detected (Not Detect); Coronavirus OC43 Not Detected (Not Detect); Human Metapneumovirus Not Detected (Not Detect); Human Rhinovirus/Enterovirus Not Detected (Not Detect); Influenza A Subtype 2009 H1 Not Detected (Not Detect); Influenza A Untypeable Not Detected (Not Detect); Influenza B Not Detected (Not Detect); Mycoplasma pneumoniae Not Detected (Not Detect); Parainfluenza Virus 1 Not Detected (Not Detect); Parainfluenza Virus 2 Not Detected (Not Detect); Parainfluenza Virus 3 Not Detected (Not Detect); Parainfluenza Virus 4 Not Detected (Not Detect); Respiratory Syncytial Virus Not Detected (Not Detect)
[2017-09-19] MEDS: Budesonide/Formoterol 160/4.5 1 PUFF INH IH SCH (19:46)
[2017-09-19] MEDS: Magnesium Oxide 400 MG TABLET PO SCH (20:35)
[2017-09-19] MEDS: BuPROPion SR (12 HR) 150 MG TABLET PO SCH (20:35)
[2017-09-19] MEDS: Furosemide 40 MG/4 ML VIAL IVP SCH (20:36)
[2017-09-19] MEDS: Insulin DETEMIR 100 UNIT/ML X5UNITS SQ SCH (22:22)
[2017-09-20] MEDS: Ipratropium/Albuterol Neb 3 ML IH SCH ×6 (04:21→23:35)
[2017-09-20 05:33] LABS: Basophils % 0.1 %; Eosinophils % 0.1 %; Hematocrit 39.7 % (37.5-50.1); Hemoglobin 12.9 g/dL (12.9-16.9); Immature Granulocytes % 0.3 % (0-4); Lymphocytes # 1.4 K/mcL (0.6-4.6); Lymphocytes % 9.5 %; Mean Corpuscular HGB Conc 32.5 g/dL (31.6-35.5); Mean Corpuscular Hemoglobin 28.7 pg (28.0-33.3); Mean Corpuscular Volume 88.2 fL (83.0-100.0); Mean Platelet Volume 13.1 fL (9.4-12.4); Monocytes # 0.8 K/mcL (0.0-1.3); Monocytes % 5.5 %; Neutrophils # 12.1 K/mcL (1.6-8.9); Platelet Count 169 K/mcL (140-400); Red Cell Distribution Width 13.8 % (11.5-14.5); Segmented Neutrophils % 84.5 %
[2017-09-20] MEDS: *HR* Heparin 5,000 UNIT/ML VIAL SQ SCH ×3 (05:40→21:21)
[2017-09-20 05:59] LABS: Alanine Aminotransferase 22 Units/L (7-52); Albumin 3.2 g/dL (3.5-5.7); Albumin/Globulin Ratio 1.4 (1.1-2.2); Alkaline Phosphatase 119 Units/L (34-104); Aspartate Amino Transferase 10 Units/L (13-39); BUN/Creatinine Ratio 25 (6-26); Bilirubin,Total 0.3 mg/dL (0.3-1.0); Blood Urea Nitrogen 27 mg/dL (8-23); Calcium 8.7 mg/dL (8.6-10.3); Carbon Dioxide 35 mEq/L (23-29); Chloride 96 mEq/L (98-107); Chol/HDL Ratio 2.4 (0-4.9); Cholesterol 118 mg/dL (< 200); Globulin 2.3 g/dL (2.4-3.5); Glucose 392 mg/dL (70-105); HDL Cholesterol 49 mg/dL (40-59); LDL Cholesterol,Calculated 55 mg/dL (0-99); Magnesium 2.1 mg/dL (1.6-2.6); Osmolality,Calculated 305 (280-300); Potassium 3.9 mEq/L (3.5-5.1); Sodium 137 mEq/L (136-145); Total Protein 5.5 g/dL (6.4-8.9); Triglycerides 68 mg/dL (< 150); eGFR For Non-African Americans > 60 (> 60)
[2017-09-20 07:23] LABS: Estimated Average Glucose 258 mg/dl; Hemoglobin A1C 10.6 %
[2017-09-20] MEDS: Budesonide/Formoterol 160/4.5 1 PUFF INH IH SCH ×2 (07:31→19:35)
[2017-09-20] MEDS: Tiotropium 18 MCG inhalation IH SCH (07:32)
[2017-09-20] MEDS: Nicotine 21 MG PATCH.TD24 TD SCH (08:16)
[2017-09-20] MEDS: Insulin LISPRO 300 UNITS/3 ML VIAL SQ SCH ×4 (08:17→21:05)
[2017-09-20] MEDS: Furosemide 40 MG/4 ML VIAL IVP SCH ×2 (08:18→18:55)
[2017-09-20] MEDS: Valsartan 80 MG TABLET PO SCH (08:19)
[2017-09-20] MEDS: predniSONE 20 MG TABLET PO SCH (08:20)
[2017-09-20] MEDS: BuPROPion SR (12 HR) 150 MG TABLET PO SCH ×2 (08:21→21:05)
[2017-09-20] MEDS: Aspirin 81 MG TAB.CHEW PO SCH (08:21)
[2017-09-20] MEDS: Metoprolol XL (24 HR) Succ 50 MG TAB.ER.24H PO SCH (08:23)
[2017-09-20] MEDS: Magnesium Oxide 400 MG TABLET PO SCH ×2 (08:23→21:05)
[2017-09-20] MEDS: Insulin DETEMIR 100 UNIT/ML X5UNITS SQ SCH ×2 (08:27→21:22)
[2017-09-20] MEDS: Azithromycin 500 MG in D5% in Water 250 ML IVPB SCH (11:31)
[2017-09-20] MEDS ORDERED: levoFLOXacin 500 MG TABLET PO SCH (17:30)
--- NOTE | 2017-09-20 17:32 | Internal Med Progress Note ---
Hospitalist Progress Note - Encounter Date of Encounter: 09/20/17 Time of Encounter: 12:40 - Subjective Interval History: Patient was seen and assessed at 12:40 AM. He is alert, awake, exceptionally pleasant. Patient reports that he has been using increased oxygen at home with the last 2 weeks. Normally he only wears it at night and as needed. He reports that he has had about a 20 pound weight gain in about a month. He states that he started decreasing his fluid intake and holding his salt in his diet too late. He states he does not want to go home too early again. We discussed education about increasing Lasix and decreasing fluid intake much earlier. - Exam Vitals: Temp Pulse Resp BP Pulse Ox 97.4 F L 73 18 111/71 92 09/20/17 16:14 09/20/17 16:14 09/20/17 16:14 09/20/17 16:14 09/20/17 16:14 Exam: General: Pt resting quietly on bed, no distress. Skin: pwd, no rashes, lesions, redness Neurological: Pt is alert and awake, oriented x 3, Speech is clear, PERRLA, EOMI , no nystagmus, no pronator drift. strength equal x 4 extremities HEENT: mucous mumbranes moist, no conjuctival pallor Neck: supple, no tracheal deviation, no lymphadenopathy, tenderness, no thyromegaly Heart: S1S2 heard without gallops, clicks, murmurs, no bradycardia or tachycardia, pt has +2 nonpitting bilateral pedal and lower extremity peripheral edema, pedal and radial pulses palpable bilaterally. Lungs: Wheezing and rails throughout respirations are unlabored Abdomen: soft and non tender with bowel sound present, no hepatomegaly. Slightly distended Psych: Normal affect with good eye contact - Assessment and Plan (1) Diabetes Current Visit: Yes Status: Chronic Assessment and Plan: Chronic. Uncontrolled. Hemoglobin A1c is 10.6%. Continue sliding scale insulin, Accu-Cheks before meals and at bedtime, diabetic diet/fluid restriction. (2) Dyspnea Current Visit: Yes Status: Acute Assessment and Plan: Acute on chronic SOB which has worsened over the past 2 weeks likely secondary to CHF exacerbation. Pt. reports orthopnea. History of chronic CHF and COPD with bronchitis. Supplemental O2 with titration and SPO2 monitoring. Continue duo nebs, albuterol, Zithromax, Symbicort, Lasix. Continue telemetry (3) DVT prophylaxis Current Visit: Yes Status: Acute Assessment and Plan: Heparin subcutaneous twice daily. Patient is ambulatory in his room. (4) COPD (chronic obstructive pulmonary disease) Current Visit: Yes Status: Chronic Assessment and Plan: Chronic. Patient is being treated for acute exacerbation with Zithromax. He was on Levaquin at home and worsened though causes likely due to CHF. Patient was recently discharged 5 days ago with diagnosis of pneumonia. Continue O2 as needed to maintain sats greater than 92%, as well as continuous pulse ox Tinea duo nebs, Zithromax IV, Symbicort, albuterol. Chest X-Ray 09/19/17 10:58 IMPRESSION: Cardiomegaly with probable pulmonary venous hypertension. No evidence of edema D/ / Yemi Lundberg MD / Yemi Lundberg MD Interpreting Provider: Yemi Lundberg MD (5) CAD (coronary artery disease) Current Visit: Yes Status: Chronic Assessment and Plan: Chronic. Patient denies chest pain. Continue Plavix, beta carmela, valsartan, isosorbide, statin. Continue telemetry Echocardiogram dated 09/13/17 shows LVEF of 35%, global and regional LV systolic dysfunction, LV apex not optimally visualized, mildly dilated left ventricle, moderate left ventricular diastolic dysfunction, normal right ventricular structure and function, no significant valvular dysfunction, and no pulmonary hypertension. (6) Tobacco abuse Current Visit: Yes Status: Chronic Assessment and Plan: Chronic. Patient states he is not want to quit smoking. He has a nicotine patch. (7) Acute congestive heart failure Current Visit: Yes Status: Acute Assessment and Plan: Acute on chronic exacerbation of systolic CHF. BNP elevated to admission. He reports 20 pound weight gain as well as shortness of breath, dyspnea orthopnea for 2-3 weeks. He reports increased oxygen demand over his baseline. Patient with +2 nonpitting edema to bilateral lower extremities, wheezing and rales heard in all lung rogers. Continue telemetry Attending oxygen as needed IV Lasix 40 mg twice daily Continue strict intake and output, daily weights, 1.5 L/diabetic/cardiac diet Fluid deficit is -2.2 liters (8) HTN (hypertension) Current Visit: Yes Status: Chronic Assessment and Plan: Chronic. Continue home medications. (9) HLD (hyperlipidemia) Current Visit: Yes Status: Chronic Assessment and Plan: Chronic. Continue statin. Lipid panel within normal limits. (10) Tobacco abuse counseling Current Visit: Yes Status: Acute (11) Elevated troponin Current Visit: Yes Status: Acute Assessment and Plan: Flat, adynamic elevation in the setting of congestive heart failure. Plan as above. Patient denies chest pain.0 (12) Leukocytosis Current Visit: Yes Status: Acute Assessment and Plan: Improving, 14.3 Today. Patient with Recent Diagnosis of Pneumonia. Patient Reports Fever and Chills since Discharge. Respiratory infectious panel is negative. Legionella and strep pneumo are negative. Blood cultures are ordered and pending. Continue IV Zithromax. Patient is afebrile, no tachycardia or tachypnea, patient is normotensive. Continue to monitor morning labs. DVT Prophylaxis: Plan as above - Time Spent with Patient Total time spent is greater than 50% in coordination of care (as documented) at patient's floor/unit and/or counseling patient: less than 15 minutes Internal Medicine: Result - Labs CBC & Chem 7: 09/20/17 04:28 09/20/17 04:28 Labs: Short CBC 09/20/17 Range/Units 04:28 WBC 14.3 H (4.3-11.1) K/mcL Hgb 12.9 (12.9-16.9) g/dL Hct 39.7 (37.5-50.1) % Plt Count 169 (140-400) K/mcL Neutrophils # 12.1 H (1.6-8.9) K/mcL BMP 09/20/17 04:28 Sodium 137 Potassium 3.9 Chloride 96 L Carbon Dioxide 35 H BUN 27 H Creatinine 1.07 Glucose 392 H Calcium 8.7 Cardiac Enzymes 09/19/17 09/19/17 Range/Units 17:00 22:52 Troponin I 0.09 H* 0.08 H* (< 0.04) ng/mL Liver Function 09/20/17 Range/Units 04:28 Total Bilirubin 0.3 (0.3-1.0) mg/dL AST 10 L (13-39) Units/L ALT 22 (7-52) Units/L Alkaline Phosphatase 119 H (34-104) Units/L Albumin 3.2 L (3.5-5.7) g/dL Consult Discharge Plan - Plan Referrals: Jennifer,Jagdeep Jones MD [Primary Care Provider] - (1) Diabetes Qualifiers: Diabetes mellitus type: type 2 Diabetes mellitus terminal makeup operator insulin use: with terminal makeup operator use Diabetes mellitus complication status: with hyperglycemia Qualified Code(s): E11.65 - Type 2 diabetes mellitus with hyperglycemia; Z79.4 - care home (current) use of insulin; Z79.4 - terminal worker (current) use of insulin ; Z79.4 - care home (current) use of insulin; Z79.4 - care home (current) use of insulin (2) Dyspnea Qualifiers: Dyspnea type: shortness of breath Qualified Code(s): R06.02 - Shortness of breath; R06.00 - Dyspnea, unspecified; R06.01 - Orthopnea (4) COPD (chronic obstructive pulmonary disease) Qualifiers: COPD type: chronic bronchitis Chronic bronchitis type: simple Qualified Code (s): J41.0 - Simple chronic bronchitis (5) CAD (coronary artery disease) Qualifiers: Coronary Disease-Associated Artery/Lesion type: [place] artery [place] vs. transplanted heart: [place] heart Associated angina: without angina Qualified Code(s): I25.10 - Atherosclerotic heart disease of [place] coronary artery without angina pectoris (7) Acute congestive heart failure Qualifiers: Heart failure type: combined systolic and diastolic Qualified Code(s): I50.41 - Acute combined systolic (congestive) and diastolic (congestive) heart failure (8) HTN (hypertension) Qualifiers: Hypertension type: essential hypertension Qualified Code(s): I10 - Essential (primary) hypertension (9) HLD (hyperlipidemia) Qualifiers: Hyperlipidemia type: pure hypercholesterolemia Qualified Code(s): E78.00 - Pure hypercholesterolemia, unspecified; E78.0 - Pure hypercholesterolemia (12) Leukocytosis Qualifiers: Leukocytosis type: unspecified Qualified Code(s): D72.829 - Elevated white blood cell count, unspecified
[2017-09-21] MEDS: Ipratropium/Albuterol Neb 3 ML IH SCH ×6 (03:39→23:04)
[2017-09-21] MEDS: Acetaminophen 325 MG TABLET PO PRN ×2 (05:12→20:40)
[2017-09-21] MEDS: *HR* Heparin 5,000 UNIT/ML VIAL SQ SCH ×3 (05:12→21:18)
[2017-09-21 06:29] LABS: Basophils % 0.1 %; Eosinophils # 0.1 K/mcL (0.0-0.6); Eosinophils % 0.6 %; Hematocrit 41.8 % (37.5-50.1); Hemoglobin 13.6 g/dL (12.9-16.9); Immature Granulocytes % 0.4 % (0-4); Lymphocytes # 2.6 K/mcL (0.6-4.6); Lymphocytes % 16.8 %; Mean Corpuscular HGB Conc 32.5 g/dL (31.6-35.5); Mean Corpuscular Hemoglobin 29.1 pg (28.0-33.3); Mean Corpuscular Volume 89.3 fL (83.0-100.0); Mean Platelet Volume 12.6 fL (9.4-12.4); Monocytes # 0.9 K/mcL (0.0-1.3); Monocytes % 6.1 %; Neutrophils # 11.6 K/mcL (1.6-8.9); Platelet Count 189 K/mcL (140-400); Red Blood Count 4.68 M/mcL (4.19-5.50); Red Cell Distribution Width 14.1 % (11.5-14.5)
[2017-09-21] MEDS: Budesonide/Formoterol 160/4.5 1 PUFF INH IH SCH ×2 (07:30→19:30)
[2017-09-21] MEDS: Tiotropium 18 MCG inhalation IH SCH (07:35)
[2017-09-21] MEDS: Insulin LISPRO 300 UNITS/3 ML VIAL SQ SCH ×4 (07:44→20:29)
[2017-09-21] MEDS: Insulin DETEMIR 100 UNIT/ML X5UNITS SQ SCH ×2 (07:45→20:30)
[2017-09-21] MEDS: Valsartan 80 MG TABLET PO SCH (07:46)
[2017-09-21] MEDS: BuPROPion SR (12 HR) 150 MG TABLET PO SCH ×2 (07:46→20:30)
[2017-09-21] MEDS: Nicotine 21 MG PATCH.TD24 TD SCH (07:46)
[2017-09-21] MEDS: Magnesium Oxide 400 MG TABLET PO SCH ×2 (07:47→20:30)
[2017-09-21] MEDS: Aspirin 81 MG TAB.CHEW PO SCH (07:47)
[2017-09-21] MEDS: Furosemide 40 MG/4 ML VIAL IVP SCH ×2 (07:47→17:04)
[2017-09-21] MEDS: predniSONE 20 MG TABLET PO SCH (07:47)
[2017-09-21] MEDS: Metoprolol XL (24 HR) Succ 50 MG TAB.ER.24H PO SCH (07:47)
[2017-09-21 08:06] LABS: Alanine Aminotransferase 21 Units/L (7-52); Albumin 3.5 g/dL (3.5-5.7); Albumin/Globulin Ratio 1.3 (1.1-2.2); Alkaline Phosphatase 115 Units/L (34-104); Aspartate Amino Transferase 13 Units/L (13-39); BUN/Creatinine Ratio 27 (6-26); Bilirubin,Total 0.6 mg/dL (0.3-1.0); Blood Urea Nitrogen 31 mg/dL (8-23); Carbon Dioxide 35 mEq/L (23-29); Chloride 96 mEq/L (98-107); Globulin 2.6 g/dL (2.4-3.5); Glucose 124 mg/dL (70-105); Osmolality,Calculated 296 (280-300); Potassium 3.5 mEq/L (3.5-5.1); Sodium 139 mEq/L (136-145); Total Protein 6.1 g/dL (6.4-8.9); eGFR For Non-African Americans > 60 (> 60)
[2017-09-21] MEDS: Azithromycin 500 MG in D5% in Water 250 ML IVPB SCH (11:44)
--- NOTE | 2017-09-21 16:31 | Internal Med Progress Note ---
Hospitalist Progress Note - Encounter Date of Encounter: 09/21/17 Time of Encounter: 09:45 - Subjective Interval History: Patient was seen and assessed at 0945 AM. He is alert, awake, exceptionally pleasant. Pt denies chest pain, is still having some SOB, but has improved. He denies headache, vision changes, abdominal pain, n/v/d, or weakness. Pt requests another day of IV diuretic and states that he realizes that he has been bouncing in and out of the hospital and wants to be improved before he goes home. Pt reports some mild improvement in BLE pedal edema. - Exam Vitals: Temp Pulse Resp BP Pulse Ox 96.7 F L 69 20 93/54 90 09/21/17 15:42 09/21/17 15:42 09/21/17 15:42 09/21/17 15:42 09/21/17 15:42 Exam: General: Pt resting quietly on bed, no distress. Skin: pwd, no rashes, lesions, redness Neurological: Pt is alert and awake, oriented x 3, Speech is clear, PERRLA, EOMI , no nystagmus, no pronator drift. strength equal x 4 extremities HEENT: mucous mumbranes moist, no conjuctival pallor Neck: supple, no tracheal deviation, no lymphadenopathy, tenderness, no thyromegaly Heart: S1S2 heard without gallops, clicks, murmurs, no bradycardia or tachycardia, pt has +2-3 pitting bilateral lower extremity peripheral edema, radial pulses palpable bilaterally. Lungs: clear throughout without wheezing, rales, or ronchi, respirations are unlabored Abdomen: soft and non tender with bowel sound present, no hepatomegaly. Psych: Normal affect with good eye contact - Assessment and Plan (1) Diabetes Current Visit: Yes Status: Chronic (2) Dyspnea Current Visit: Yes Status: Acute Assessment and Plan: Acute on chronic SOB which has worsened over the past 2 weeks likely secondary to CHF exacerbation. Pt. reports orthopnea. History of chronic CHF and COPD with bronchitis. Supplemental O2 with titration and SPO2 monitoring. Pt does not have home 02. Continue duo nebs, albuterol, Zithromax, Symbicort, Lasix Continue telemetry (3) DVT prophylaxis Current Visit: Yes Status: Acute Assessment and Plan: Heparin subcutaneous twice daily. Patient is ambulatory in his room. (4) COPD (chronic obstructive pulmonary disease) Current Visit: Yes Status: Chronic Assessment and Plan: Chronic. Patient is being treated for acute exacerbation with Zithromax. He was on Levaquin at home and worsened though causes likely due to CHF. Patient was recently discharged 5 days ago with diagnosis of pneumonia. Continue O2 as needed to maintain sats greater than 92%, as well as continuous pulse ox wheezing heard in all lung rogers. Tinea duo nebs, Zithromax IV, Symbicort, albuterol, Prednisone 40mg po daily, Guaifenesin Chest X-Ray 09/19/17 10:58 IMPRESSION: Cardiomegaly with probable pulmonary venous hypertension. No evidence of edema D/ / Yemi Lundberg MD / Yemi Lundberg MD Interpreting Provider: Yemi Lundberg MD (5) CAD (coronary artery disease) Current Visit: Yes Status: Chronic Assessment and Plan: Chronic. Patient denies chest pain. Continue Plavix, beta carmela, valsartan, isosorbide, statin. Echocardiogram dated 09/13/17 shows LVEF of 35%, global and regional LV systolic dysfunction, LV apex not optimally visualized, mildly dilated left ventricle, moderate left ventricular diastolic dysfunction, normal right ventricular structure and function, no significant valvular dysfunction, and no pulmonary hypertension. Continue telemetry (6) Tobacco abuse Current Visit: Yes Status: Chronic Assessment and Plan: Chronic. Patient states he is not want to quit smoking. He has a nicotine patch. (7) Acute congestive heart failure Current Visit: Yes Status: Acute Assessment and Plan: Acute on chronic exacerbation of systolic CHF. BNP elevated to admission. Patient with +2 nonpitting edema to bilateral lower extremities, wheezing heard in all lung rogers. Continue telemetry Attending oxygen as needed IV Lasix 40 mg twice daily Continue strict intake and output, daily weights, 1.5 L/diabetic/cardiac diet Fluid deficit is -3.7 liters, approximately 6.1kg weight loss. (8) HTN (hypertension) Current Visit: Yes Status: Chronic Assessment and Plan: Chronic. Continue home medications. (9) HLD (hyperlipidemia) Current Visit: Yes Status: Chronic Assessment and Plan: Chronic. Continue statin. Lipid panel within normal limits. (10) Tobacco abuse counseling Current Visit: Yes Status: Acute Assessment and Plan: Acute tobacco abuse counseling >10 minutes. Continue Nicoderm patch. (11) Elevated troponin Current Visit: Yes Status: Acute Assessment and Plan: Flat, adynamic elevation in the setting of acute exacerbation of CHF. Plan as above. Patient denies chest pain. (12) Leukocytosis Current Visit: Yes Status: Acute Assessment and Plan: 15.3 Today. Patient with Recent Diagnosis of Pneumonia. Patient Reports Fever and Chills since Discharge. Likely due to steroid use. Respiratory infectious panel is negative. Legionella and strep pneumo are negative. Blood cultures are ordered and pending. Continue IV Zithromax. Patient is afebrile, no tachycardia or tachypnea, patient is normotensive. Continue to monitor morning labs. DVT Prophylaxis: Heparin SQ TID - Time Spent with Patient Total time spent is greater than 50% in coordination of care (as documented) at patient's floor/unit and/or counseling patient: less than 15 minutes Plan of Care Discussed with: patient Internal Medicine: Result - Labs CBC & Chem 7: 09/21/17 05:52 09/21/17 05:52 Labs: Short CBC 09/21/17 Range/Units 05:52 WBC 15.3 H (4.3-11.1) K/mcL Hgb 13.6 (12.9-16.9) g/dL Hct 41.8 (37.5-50.1) % Plt Count 189 (140-400) K/mcL Neutrophils # 11.6 H (1.6-8.9) K/mcL BMP 09/21/17 05:52 Sodium 139 Potassium 3.5 Chloride 96 L Carbon Dioxide 35 H BUN 31 H Creatinine 1.15 Glucose 124 H Calcium 9.0 Liver Function 09/21/17 Range/Units 05:52 Total Bilirubin 0.6 (0.3-1.0) mg/dL AST 13 (13-39) Units/L ALT 21 (7-52) Units/L Alkaline Phosphatase 115 H (34-104) Units/L Albumin 3.5 (3.5-5.7) g/dL Consult Discharge Plan - Plan Referrals: Jennifer,Jagdeep Jones MD [Primary Care Provider] - (1) Diabetes Qualifiers: Diabetes mellitus type: type 2 Diabetes mellitus usp insulin use: with terminal supervisor use Diabetes mellitus complication status: with hyperglycemia Qualified Code(s): E11.65 - Type 2 diabetes mellitus with hyperglycemia; Z79.4 - snf (current) use of insulin; Z79.4 - keno terminal operator (current) use of insulin ; Z79.4 - keno terminal operator (current) use of insulin; Z79.4 - keno terminal operator (current) use of insulin (2) Dyspnea Qualifiers: Dyspnea type: shortness of breath Qualified Code(s): R06.02 - Shortness of breath; R06.00 - Dyspnea, unspecified; R06.01 - Orthopnea (4) COPD (chronic obstructive pulmonary disease) Qualifiers: COPD type: chronic bronchitis Chronic bronchitis type: simple Qualified Code (s): J41.0 - Simple chronic bronchitis (5) CAD (coronary artery disease) Qualifiers: Coronary Disease-Associated Artery/Lesion type: [place] artery [place] vs. transplanted heart: [place] heart Associated angina: without angina Qualified Code(s): I25.10 - Atherosclerotic heart disease of [place] coronary artery without angina pectoris (7) Acute congestive heart failure Qualifiers: Heart failure type: combined systolic and diastolic Qualified Code(s): I50.41 - Acute combined systolic (congestive) and diastolic (congestive) heart failure (8) HTN (hypertension) Qualifiers: Hypertension type: essential hypertension Qualified Code(s): I10 - Essential (primary) hypertension (9) HLD (hyperlipidemia) Qualifiers: Hyperlipidemia type: pure hypercholesterolemia Qualified Code(s): E78.00 - Pure hypercholesterolemia, unspecified; E78.0 - Pure hypercholesterolemia (12) Leukocytosis Qualifiers: Leukocytosis type: unspecified Qualified Code(s): D72.829 - Elevated white blood cell count, unspecified
[2017-09-21 22:56] LABS: Basophils % 0.1 %; Eosinophils % 0.1 %; Hemoglobin 12.2 g/dL (12.9-16.9); Immature Granulocytes % 0.6 % (0-4); Lymphocytes # 1.5 K/mcL (0.6-4.6); Lymphocytes % 10.3 %; Mean Corpuscular HGB Conc 32.1 g/dL (31.6-35.5); Mean Corpuscular Hemoglobin 28.2 pg (28.0-33.3); Mean Corpuscular Volume 87.8 fL (83.0-100.0); Mean Platelet Volume 12.3 fL (9.4-12.4); Monocytes % 6.8 %; Neutrophils # 11.8 K/mcL (1.6-8.9); Platelet Count 180 K/mcL (140-400); Red Blood Count 4.33 M/mcL (4.19-5.50); Red Cell Distribution Width 14.3 % (11.5-14.5); Segmented Neutrophils % 82.1 %
[2017-09-22] MEDS: Ipratropium/Albuterol Neb 3 ML IH SCH ×2 (04:06→07:38)
[2017-09-22] MEDS: *HR* Heparin 5,000 UNIT/ML VIAL SQ SCH (05:01)
[2017-09-22 06:14] LABS: Basophils % 0.1 %; Eosinophils # 0.1 K/mcL (0.0-0.6); Eosinophils % 0.8 %; Hematocrit 40.5 % (37.5-50.1); Hemoglobin 12.8 g/dL (12.9-16.9); Immature Granulocytes % 0.5 % (0-4); Lymphocytes # 2.2 K/mcL (0.6-4.6); Lymphocytes % 15.4 %; Mean Corpuscular HGB Conc 31.6 g/dL (31.6-35.5); Mean Corpuscular Hemoglobin 28.2 pg (28.0-33.3); Mean Corpuscular Volume 89.2 fL (83.0-100.0); Mean Platelet Volume 12.6 fL (9.4-12.4); Monocytes # 1.1 K/mcL (0.0-1.3); Monocytes % 7.5 %; Neutrophils # 10.8 K/mcL (1.6-8.9); Platelet Count 196 K/mcL (140-400); Red Blood Count 4.54 M/mcL (4.19-5.50); Red Cell Distribution Width 14.6 % (11.5-14.5); Segmented Neutrophils % 75.7 %
[2017-09-22 06:53] LABS: Alanine Aminotransferase 33 Units/L (7-52); Albumin 3.5 g/dL (3.5-5.7); Albumin/Globulin Ratio 1.3 (1.1-2.2); Alkaline Phosphatase 133 Units/L (34-104); Aspartate Amino Transferase 34 Units/L (13-39); BUN/Creatinine Ratio 37 (6-26); Bilirubin,Total 0.4 mg/dL (0.3-1.0); Blood Urea Nitrogen 42 mg/dL (8-23); Calcium 9.1 mg/dL (8.6-10.3); Carbon Dioxide 35 mEq/L (23-29); Chloride 97 mEq/L (98-107); Globulin 2.7 g/dL (2.4-3.5); Glucose 203 mg/dL (70-105); Osmolality,Calculated 304 (280-300); Potassium 3.9 mEq/L (3.5-5.1); Sodium 139 mEq/L (136-145); Total Protein 6.2 g/dL (6.4-8.9); eGFR For Non-African Americans > 60 (> 60)
[2017-09-22 07:08] VITALS: BP 107/62
[2017-09-22] MEDS: Budesonide/Formoterol 160/4.5 1 PUFF INH IH SCH (07:39)
[2017-09-22] MEDS: Tiotropium 18 MCG inhalation IH SCH (07:39)
[2017-09-22] MEDS: Acetaminophen 325 MG TABLET PO PRN (08:14)
[2017-09-22] MEDS: predniSONE 20 MG TABLET PO SCH (08:14)
[2017-09-22] MEDS: Aspirin 81 MG TAB.CHEW PO SCH (08:15)
[2017-09-22] MEDS: Valsartan 80 MG TABLET PO SCH (08:15)
[2017-09-22] MEDS: BuPROPion SR (12 HR) 150 MG TABLET PO SCH (08:15)
[2017-09-22] MEDS: Metoprolol XL (24 HR) Succ 50 MG TAB.ER.24H PO SCH (08:15)
[2017-09-22] MEDS: Magnesium Oxide 400 MG TABLET PO SCH (08:16)
[2017-09-22] MEDS: Furosemide 40 MG/4 ML VIAL IVP SCH (08:16)
[2017-09-22] MEDS: Nicotine 21 MG PATCH.TD24 TD SCH (08:17)
[2017-09-22] MEDS: Insulin LISPRO 300 UNITS/3 ML VIAL SQ SCH (08:17)
[2017-09-22] MEDS: Insulin DETEMIR 100 UNIT/ML X5UNITS SQ SCH (08:31)
--- NOTE | 2017-09-22 08:56 | Electrocardiograph Report ---
[address] [place] [address] Test Date: 2017-09-19 Pat Name: Ananth Suarez Department: 104 Room: 3B43 Gender: M Stator Tester: GEORGINA : 1955 Requested By: Rufus Fulton Order Number: [id number] Reading MD: Mehdi Pavon Measurements Intervals [place] Rate: 75 P: 63 [place]: 149 QRS: -60 QRSD: 104 T: 96 QT: 405 QTc: 433 Interpretive Statements SINUS RHYTHM WITH OCCASIONAL VENTRICULAR PREMATURE COMPLEXES LEFT ANTERIOR FASCICULAR BLOCK ANTEROSEPTAL MYOCARDIAL INFARCTION, OF INDETERMINATE AGE Electronically Signed On 09-22-2017 8:54:48 EDT by Mehdi Pavon
--- NOTE | 2017-09-22 10:58 | Discharge Summary ---
Date of Encounter: 09/22/17 Time of Encounter: 09:35 - Discharge Diagnosis (1) Diabetes Priority: Secondary Status: Chronic Assessment and Plan: Chronic. Poorly controlled. Hemoglobin A1c is 10.6%. Continue home medications. 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 He is not requiring supplemental o2 and and lungs are clear and diminished throughout. History of chronic CHF and COPD with bronchitis. Continue home medications. Qualifiers: Dyspnea type: shortness of breath Qualified Code(s): R06.02 - Shortness of breath; R06.00 - Dyspnea, unspecified; R06.01 - Orthopnea (3) DVT prophylaxis Priority: Secondary Status: Acute Assessment and Plan: Heparin SQ BID. Patient is ambulatory in his room. (4) COPD (chronic obstructive pulmonary disease) Priority: Secondary Status: Chronic Assessment and Plan: Chronic. Patient is being treated for acute exacerbation with Zithromax. He was on Levaquin at home and worsened though causes likely due to CHF. Patient was recently discharged 5 days ago with diagnosis of pneumonia. Continue O2 as needed to maintain sats greater than 92%, as well as continuous pulse ox wheezing heard in all lung rogers. Patient denies need for medication refills at home. Continue by mouth antibiotic, long steroid taper, oxygen at home, duo nebs, guaifenesin. Chest X-Ray 09/19/17 10:58 IMPRESSION: Cardiomegaly with probable pulmonary venous hypertension. No evidence of edema D/ / Yemi Lundberg MD / Yemi Lundberg MD Interpreting Provider: Yemi Lundberg MD Qualifiers: COPD type: chronic bronchitis Chronic bronchitis type: simple Qualified Code(s): J41.0 - Simple chronic bronchitis (5) CAD (coronary artery disease) Priority: Secondary Status: Chronic Assessment and Plan: Chronic. Patient denies chest pain. Continue Plavix, beta carmela, valsartan, isosorbide, statin. Qualifiers: Coronary Disease-Associated Artery/Lesion type: [place] artery [place] vs. transplanted heart: [place] heart Associated angina: without angina Qualified Code(s): I25.10 - Atherosclerotic heart disease of [place] coronary artery without angina pectoris (6) Tobacco abuse Priority: Secondary Status: Chronic Assessment and Plan: Chronic. Patient states he does not want to quit smoking. He has a nicotine patch. (7) Acute congestive heart failure Priority: Secondary Status: Acute Assessment and Plan: Acute on chronic exacerbation of systolic CHF. BNP elevated to admission. Patient with improved, +1 nonpitting edema to bilateral lower extremities, lungs are diminished. Pt states that he is feeling better, ready to go home. Education completed on daily weights, increasing lasix and decreasing fluid and sodium intake with noticeable weight gain. Fluid deficit is -4.8 liters, approximately 6.1kg weight loss. Qualifiers: Heart failure type: combined systolic and diastolic Qualified Code(s): I50.41 - Acute combined systolic (congestive) and diastolic (congestive) heart failure (8) HTN (hypertension) Priority: Secondary Status: Chronic Assessment and Plan: Chronic. Stable. Continue home medications. Qualifiers: Hypertension type: essential hypertension Qualified Code(s): I10 - Essential (primary) hypertension (9) HLD (hyperlipidemia) Priority: Secondary Status: Chronic Assessment and Plan: Chronic. Continue statin. Lipid panel within normal limits. Qualifiers: Hyperlipidemia type: pure hypercholesterolemia Qualified Code(s): E78.00 - Pure hypercholesterolemia, unspecified; E78.0 - Pure hypercholesterolemia (10) Tobacco abuse counseling Priority: Secondary Status: Acute Assessment and Plan: Acute tobacco abuse counseling >10 minutes. Continue Nicoderm patch. Pt staets that he is not ready to stop smoking. (11) Elevated troponin Priority: Secondary Status: Acute Assessment and Plan: Flat, adynamic elevation in the setting of acute exacerbation of CHF. Plan as above. Patient denies chest pain. (12) Leukocytosis Priority: Secondary Status: Acute Assessment and Plan: Patient with Recent Diagnosis of Pneumonia. It has remained stable the last few days. Pt is being treated with antibiotics and po steroids. Steroids likely cause of leukocytosis. Respiratory infectious panel is negative. Legionella and strep pneumo are negative. Blood cultures are ordered and pending. Continue po zithromax, steroid taper, guaifenesin Patient is afebrile, no tachycardia or tachypnea, patient is normotensive. Qualifiers: Leukocytosis type: unspecified Qualified Code(s): D72.829 - Elevated white blood cell count, unspecified Hospital course: Mr. Suarez is a 62 year old male with PMH of COPD, CHF, hypertension, depression, tobacco abuse, obesity, [place], status post ICD. Patient was admitted for shortness of breath, dyspnea, orthopnea for 3 weeks that became progressively worse prompting his visit to the emergency department. Patient reports 20 pound weight gain over 3 weeks. He was discharged 5 days ago from this facility for diagnosis of suspected [place] and pneumonia. Patient was admitted for acute exacerbation of congestive heart failure, dyspnea, flat and adynamic clear elevated troponin in the setting of CHF exacerbation, COPD exacerbation. 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 Patient has had significant improvement in symptoms with approximately 6-1/2 kg weight loss and 4.8 liter fluid deficit with diuresis and fluid restriction. Education on daily weights, fluid and sodium restriction , as well as increasing Lasix at home completed. Patient verbalized understanding. Patient was not requiring supplemental oxygen, he states he has returned to his baseline is feeling better. She has mild leukocytosis that is most likely secondary to steroid use. He is going to be discharged with prescription for antibiotic, steroids, guaifenesin for COPD exacerbation. His vitals are stable and within normal limits. Labs are stable. He will be discharged in stable condition to home. Discharge discussed with: patient, nurse Time spent discussing smoking cessation with patient: 3 to 10 minutes - Time Spent with Patient Total time spent providing and/or coordinating discharge services: Less than 30 minutes - Discharge Medications Prescriptions: Azithromycin [Zithromax] 250 mg PO Q24H #4 tablet GuaiFENesin ER [Mucinex] 600 mg PO BID PRN #30 tbbp.12hr PRN Reason: Cough predniSONE [PredniSONE] 10 mg PO DAILY #23 tablet Home Medications: Aspirin 81 mg PO DAILY #30 tab 10/02/16 [Rx] Clopidogrel [Plavix] 75 mg PO DAILY #30 tab 10/02/16 [Rx] Albuterol Sulfate [Proair Hfa] 2 puff IH Q2H PRN 10/22/16 [History] Budesonide/Formoterol 160/4.5 [Symbicort 160/4.5] 1 puff IH BIDR 10/22/16 [ History] Tiotropium [Spiriva] 18 mcg IH DAILY 10/22/16 [History] Insulin LISPRO [HumaLOG] 0 - 12 units SQ TIDWM 11/24/16 [History] BuPROPion SR (12 HR) [Wellbutrin SR] 150 mg PO BID 11/25/16 [History] Glimepiride [Amaryl] 4 mg PO DAILY 11/25/16 [History] Indapamide [Lozol] 2.5 mg PO DAILY 11/25/16 [History] Nitroglycerin [Nitrostat] 0.4 mg SL Q5M PRN 11/25/16 [History] Metformin HCl [Glucophage] 1,000 mg PO BID 03/07/17 [History] Metoprolol Succinate 50 mg PO DAILY 03/07/17 [History] Insulin Glargine,Hum.rec.anlog [Lantus Solostar] 26 unit SQ BID 03/17/17 [ History] Isosorbide DInitrate [Isordil] 10 mg PO 0800,1300,1800 #90 tablet 03/31/17 [Rx] Magnesium Oxide [Mag-Ox] 400 mg PO BID 05/29/17 [History] Valsartan [Diovan] 40 mg PO DAILY 05/29/17 [History] Rosuvastatin Calcium 40 mg PO HS 09/12/17 [History] Furosemide [Lasix] 20 mg PO BID #0 09/14/17 [Rx] Nicotine Patch [Nicoderm] 21 mg TD DAILY #30 patch.td24 09/14/17 [Rx] Potassium Chloride [Klor-Con 10] 10 meq PO BID 09/19/17 [History] Azithromycin [Zithromax] 250 mg PO Q24H #4 tablet 09/22/17 [Rx] GuaiFENesin ER [Mucinex] 600 mg PO BID PRN #30 tbbp.12hr 09/22/17 [Rx] predniSONE [PredniSONE] 10 mg PO DAILY #23 tablet 09/22/17 [Rx] Allergies/Adverse Reactions: 3 Allergy/AdvReac Type Severity Reaction Status Date / Time codeine Allergy Itching, Verified 09/19/17 13:05 Rash ticagrelor [From Brilinta] Allergy See Verified 09/19/17 13:05 Comments Date of admission: 09/21/17 16:15 Primary care physician: Jagdeep Rodriguez MD Discharging clinician: Carolyn Garcia Anticipated date of discharge: 09/22/17 - Constitutional Vitals: Temp Pulse Resp BP Pulse Ox 98.1 F 67 16 107/62 99 09/22/17 06:57 09/22/17 06:57 09/22/17 07:40 09/22/17 06:57 09/22/17 07:40 General appearance: Present: cooperative, mild distress (SOB), A&O X 3, pleasant , obese, answers questions appropriately - Head Head exam: Present: atraumatic, normal inspection, normocephalic - Eye Eye exam: Present: normal appearance, conjuntiva pink, sclera anicteric - Neck Neck exam general surgery: Present: supple, trachea midline. Absent: lymphadenopathy, tenderness - Respiratory Respiratory exam: Present: decreased breath sounds, CTAB. Absent: accessory muscle use, chest wall tenderness, rales, respiratory distress, rhonchi, wheezes - Cardiovascular Cardiovascular exam: Present: RRR, +S1, +S2. Absent: diastolic murmur, gallop, rubs, systolic murmur - GI/Abdominal GI/Abdominal exam: Present: normal bowel sounds, soft. Absent: distended, hepatomegaly, tenderness - Extremities Exam Extremities exam: Present: normal capillary refill, normal inspection, warm, radial pulses palpable and symmetrical. Absent: calf tenderness, cyanotic, pedal edema - Neurological Exam Neurological exam: Present: alert, oriented X3, no focal deficits. Absent: facial droop, speech deficit - Skin Skin exam: Present: dry, intact, normal color, warm. Absent: rash - Patient Status Disposition: Home, Self-Care Condition: Good Functional capacity at discharge: independent ambulation Overall status at discharge: patient is progressing back to baseline - Discharge Instructions Follow Up With: Jagdeep Rodriguez MD [Primary Care Provider] - 10/01/17 2:00 pm Additional Instructions: Follow up with your PCP as scheduled. Take your medications as directed. Return to the ER as needed for any other problems or concerns, or if your symptoms return or worsen. Your new prescriptions are at your pharmacy Return to your normal diet and activities as tolerated Stop drinking and smoking. - Diet and Activity Activity: increase activity as tolerated Diet: advance to your usual diet
== END 2017-09-22 12:02 | disposition home or self-care (01) | DRG 292 ==
LOC: EMEROO 10:40 → 3BNU 10:40
PROVIDERS: ADMIT Hospitalist; ATTEND Hospitalist

== ENCOUNTER 2018-12-08 10:08 | Inpatient (IN) ==
[2018-12-08] MEDS ORDERED: methylPREDNISolone 125 MG/2 ML VIAL IVP ONE (10:41)
[2018-12-08] MEDS ORDERED: Ipratropium/Albuterol Neb 3 ML IH ONE (10:41)
[2018-12-08 11:35] LABS: Basophils % 0.1 %; Eosinophils # 0.1 K/mcL (0.0-0.6); Eosinophils % 0.9 %; Hematocrit 35.6 % (37.5-50.1); Hemoglobin 10.7 g/dL (12.9-16.9); Immature Granulocytes % 0.2 % (0-4); Lymphocytes # 0.9 K/mcL (0.6-4.6); Lymphocytes % 10.6 %; Mean Corpuscular HGB Conc 30.1 g/dL (31.6-35.5); Mean Corpuscular Volume 89.9 fL (83.0-100.0); Mean Platelet Volume 12.2 fL (9.4-12.4); Monocytes # 0.7 K/mcL (0.0-1.3); Monocytes % 9.2 %; Neutrophils # 6.3 K/mcL (1.6-8.9); Platelet Count 111 K/mcL (140-400); Red Blood Count 3.96 M/mcL (4.19-5.50); Red Cell Distribution Width 15.3 % (11.5-14.5)
[2018-12-08 12:02] LABS: BUN/Creatinine Ratio 17 (6-26); Blood Urea Nitrogen 16 mg/dL (8-23); Calcium 8.9 mg/dL (8.6-10.3); Carbon Dioxide 33 mEq/L (23-29); Chloride 98 mEq/L (98-107); Glucose 202 mg/dL (70-105); Osmolality,Calculated 291 (280-300); Potassium 4.5 mEq/L (3.5-5.1); Sodium 137 mEq/L (136-145); Troponin I 0.12 ng/mL (< 0.04); eGFR For African Americans > 60 (> 60); eGFR For Non-African Americans > 60 (> 60)
[2018-12-08] MEDS ORDERED: Aspirin 81 MG TAB.CHEW PO ONE (12:05)
[2018-12-08] MEDS ORDERED: Furosemide 60 MG in 0.9 % Sodium Chloride 50 ML IV STA (12:06)
[2018-12-08] MEDS ORDERED: levoFLOXacin 750 MG/150 ML 750 MG/150 ML BAG IVPB ONE (12:21)
[2018-12-08] MEDS ORDERED: Furosemide 20 MG/2 ML VIAL IVP ONE (13:40)
[2018-12-08] MEDS ORDERED: Naloxone 0.4 MG/ML INJ IVP PRN (14:30)
[2018-12-08] MEDS ORDERED: D5% in Water 1,000 ML IVC PRN (15:23)
[2018-12-08] MEDS ORDERED: Dextrose Gel 15 GM/37.5 ML TUBE PO PRN ×2 (15:23)
[2018-12-08] MEDS: Insulin LISPRO 300 UNITS/3 ML VIAL SQ SCH ×2 (17:12→21:05)
[2018-12-08] MEDS ORDERED: Nitroglycerin 0.4 MG TAB.SUBL SL PRN (18:46)
[2018-12-08] MEDS: Magnesium Oxide 400 MG TABLET PO SCH (21:04)
[2018-12-08] MEDS: Insulin DETEMIR 100 UNIT/ML X5UNITS SQ SCH (21:04)
[2018-12-08] MEDS: Apixaban 5 MG TABLET PO SCH (21:04)
[2018-12-08] MEDS: Ipratropium/Albuterol Neb 3 ML IH PRN (22:55)
[2018-12-09 04:11] LABS: Basophils % 0.2 %; Hematocrit 37.1 % (37.5-50.1); Hemoglobin 11.3 g/dL (12.9-16.9); Immature Granulocytes % 0.2 % (0-4); Lymphocytes # 0.5 K/mcL (0.6-4.6); Lymphocytes % 9.2 %; Mean Corpuscular HGB Conc 30.5 g/dL (31.6-35.5); Mean Corpuscular Hemoglobin 27.2 pg (28.0-33.3); Mean Corpuscular Volume 89.4 fL (83.0-100.0); Mean Platelet Volume 12.1 fL (9.4-12.4); Monocytes # 0.2 K/mcL (0.0-1.3); Monocytes % 3.1 %; Neutrophils # 4.5 K/mcL (1.6-8.9); Platelet Count 115 K/mcL (140-400); Red Blood Count 4.15 M/mcL (4.19-5.50); Red Cell Distribution Width 15.2 % (11.5-14.5); Segmented Neutrophils % 87.3 %; White Blood Count 5.1 K/mcL (4.3-11.1)
[2018-12-09 04:29] LABS: BUN/Creatinine Ratio 21 (6-26); Blood Urea Nitrogen 27 mg/dL (8-23); Calcium 9.1 mg/dL (8.6-10.3); Carbon Dioxide 35 mEq/L (23-29); Chloride 94 mEq/L (98-107); Glucose 354 mg/dL (70-105); Osmolality,Calculated 301 (280-300); Sodium 136 mEq/L (136-145); eGFR For African Americans > 60 (> 60); eGFR For Non-African Americans 57 (> 60)
[2018-12-09 06:52] LABS: Estimated Average Glucose 275 mg/dl
[2018-12-09] MEDS ORDERED: Furosemide 40 MG/4 ML VIAL IVP SCH (09:00)
[2018-12-09] MEDS: Insulin LISPRO 300 UNITS/3 ML VIAL SQ SCH ×4 (09:32→21:35)
[2018-12-09] MEDS: Insulin DETEMIR 100 UNIT/ML X5UNITS SQ SCH ×2 (09:35→21:35)
[2018-12-09] MEDS: Apixaban 5 MG TABLET PO SCH ×2 (09:36→21:34)
[2018-12-09] MEDS: Magnesium Oxide 400 MG TABLET PO SCH ×2 (09:37→21:34)
[2018-12-09] MEDS: Metoprolol XL (24 HR) Succ 50 MG TAB.ER.24H PO SCH (11:50)
[2018-12-09] MEDS ORDERED: Furosemide 20 MG/2 ML VIAL IVP SCH (17:00)
[2018-12-09] MEDS: Furosemide 40 MG/4 ML VIAL IVP SCH (17:52)
[2018-12-09] MEDS: BuPROPion SR (12 HR) 150 MG TABLET PO SCH (17:52)
[2018-12-10] MEDS: Ipratropium/Albuterol Neb 3 ML IH PRN ×3 (00:32→23:43)
[2018-12-10 04:29] LABS: Basophils % 0.1 %; Eosinophils % 0.2 %; Hematocrit 35.7 % (37.5-50.1); Hemoglobin 10.7 g/dL (12.9-16.9); Immature Granulocytes % 0.3 % (0-4); Lymphocytes # 1.4 K/mcL (0.6-4.6); Lymphocytes % 14.1 %; Mean Corpuscular Volume 89.9 fL (83.0-100.0); Mean Platelet Volume 12.3 fL (9.4-12.4); Monocytes # 0.6 K/mcL (0.0-1.3); Monocytes % 6.2 %; Neutrophils # 7.7 K/mcL (1.6-8.9); Platelet Count 123 K/mcL (140-400); Red Blood Count 3.97 M/mcL (4.19-5.50); Red Cell Distribution Width 15.1 % (11.5-14.5); Segmented Neutrophils % 79.1 %
[2018-12-10 04:49] LABS: BUN/Creatinine Ratio 34 (6-26); Blood Urea Nitrogen 38 mg/dL (8-23); Calcium 8.9 mg/dL (8.6-10.3); Carbon Dioxide 36 mEq/L (23-29); Chloride 97 mEq/L (98-107); Glucose 227 mg/dL (70-105); Osmolality,Calculated 302 (280-300); Potassium 4.3 mEq/L (3.5-5.1); Sodium 138 mEq/L (136-145); eGFR For African Americans > 60 (> 60); eGFR For Non-African Americans > 60 (> 60)
[2018-12-10 05:00] LABS: White Blood Count 9.7 K/mcL (4.3-11.1)
[2018-12-10] MEDS ORDERED: Perflutren Lipid Microsphere 1.3 ML in 0.9 % Sodium Chloride 8.7 ML IVP ONE (07:47)
[2018-12-10] MEDS: Magnesium Oxide 400 MG TABLET PO SCH ×2 (09:15→20:50)
[2018-12-10] MEDS: Insulin DETEMIR 100 UNIT/ML X5UNITS SQ SCH ×2 (09:15→20:50)
[2018-12-10] MEDS: Insulin LISPRO 300 UNITS/3 ML VIAL SQ SCH ×4 (10:05→20:49)
[2018-12-10] MEDS: Apixaban 5 MG TABLET PO SCH ×2 (10:07→20:50)
[2018-12-10] MEDS: Furosemide 40 MG/4 ML VIAL IVP SCH ×2 (10:07→18:19)
[2018-12-10] MEDS: Aspirin 81 MG TAB.CHEW PO SCH (10:07)
[2018-12-10] MEDS: Metoprolol XL (24 HR) Succ 50 MG TAB.ER.24H PO SCH (10:08)
[2018-12-10] MEDS: BuPROPion SR (12 HR) 150 MG TABLET PO SCH (17:39)
[2018-12-10] MEDS ORDERED: traMADol 50 MG TABLET PO STA (21:37)
[2018-12-11 04:41] LABS: Basophils % 0.2 %; Eosinophils # 0.1 K/mcL (0.0-0.6); Hematocrit 35.7 % (37.5-50.1); Hemoglobin 11.1 g/dL (12.9-16.9); Immature Granulocytes % 0.4 % (0-4); Lymphocytes # 1.5 K/mcL (0.6-4.6); Lymphocytes % 16.1 %; Mean Corpuscular HGB Conc 31.1 g/dL (31.6-35.5); Mean Corpuscular Hemoglobin 27.7 pg (28.0-33.3); Mean Platelet Volume 12.9 fL (9.4-12.4); Monocytes # 0.5 K/mcL (0.0-1.3); Monocytes % 5.5 %; Neutrophils # 6.9 K/mcL (1.6-8.9); Platelet Count 137 K/mcL (140-400); Red Blood Count 4.01 M/mcL (4.19-5.50); Red Cell Distribution Width 15.3 % (11.5-14.5); Segmented Neutrophils % 76.8 %
[2018-12-11 05:02] LABS: BUN/Creatinine Ratio 34 (6-26); Blood Urea Nitrogen 46 mg/dL (8-23); Calcium 8.9 mg/dL (8.6-10.3); Carbon Dioxide 37 mEq/L (23-29); Chloride 96 mEq/L (98-107); Glucose 309 mg/dL (70-105); Osmolality,Calculated 308 (280-300); Potassium 4.2 mEq/L (3.5-5.1); Sodium 137 mEq/L (136-145); eGFR For African Americans > 60 (> 60); eGFR For Non-African Americans 53 (> 60)
[2018-12-11] MEDS: Ipratropium/Albuterol Neb 3 ML IH PRN (06:37)
[2018-12-11] MEDS: Furosemide 40 MG/4 ML VIAL IVP SCH ×2 (08:19→17:53)
[2018-12-11] MEDS: Insulin LISPRO 300 UNITS/3 ML VIAL SQ SCH ×4 (08:19→21:07)
[2018-12-11] MEDS: Apixaban 5 MG TABLET PO SCH ×2 (08:20→20:54)
[2018-12-11] MEDS: Metoprolol XL (24 HR) Succ 50 MG TAB.ER.24H PO SCH (08:20)
[2018-12-11] MEDS: Magnesium Oxide 400 MG TABLET PO SCH ×2 (08:20→20:53)
[2018-12-11] MEDS: Aspirin 81 MG TAB.CHEW PO SCH (08:20)
[2018-12-11] MEDS: Insulin DETEMIR 100 UNIT/ML X5UNITS SQ SCH ×2 (10:05→21:10)
[2018-12-11] MEDS ORDERED: Ipratropium/Albuterol Neb 3 ML IH PRN (12:00)
[2018-12-11] MEDS ORDERED: Albuterol 2.5 MG/3 ML NEBULIZER IH PRN (15:51)
[2018-12-11] MEDS: Ipratropium/Albuterol Neb 3 ML IH SCH ×3 (17:17→23:31)
[2018-12-11] MEDS: predniSONE 20 MG TABLET PO SCH (17:51)
[2018-12-11] MEDS: BuPROPion SR (12 HR) 150 MG TABLET PO SCH (17:52)
[2018-12-12] MEDS ORDERED: Insulin Human Regular 10 UNIT in 0.9 % Sodium Chloride 10 ML IV ONE ×4 (02:20→21:54)
[2018-12-12] MEDS: Ipratropium/Albuterol Neb 3 ML IH SCH ×3 (03:50→19:43)
[2018-12-12 05:15] LABS: Hematocrit 33.9 % (37.5-50.1); Hemoglobin 10.3 g/dL (12.9-16.9); Mean Corpuscular HGB Conc 30.4 g/dL (31.6-35.5); Mean Corpuscular Hemoglobin 27.2 pg (28.0-33.3); Mean Corpuscular Volume 89.7 fL (83.0-100.0); Mean Platelet Volume 12.4 fL (9.4-12.4); Platelet Count 117 K/mcL (140-400); Red Blood Count 3.78 M/mcL (4.19-5.50); Red Cell Distribution Width 15.4 % (11.5-14.5); White Blood Count 9.4 K/mcL (4.3-11.1)
[2018-12-12 05:33] LABS: BUN/Creatinine Ratio 35 (6-26); Blood Urea Nitrogen 47 mg/dL (8-23); Calcium 9.1 mg/dL (8.6-10.3); Carbon Dioxide 34 mEq/L (23-29); Chloride 95 mEq/L (98-107); Glucose 450 mg/dL (70-105); Osmolality,Calculated 308 (280-300); Potassium 4.6 mEq/L (3.5-5.1); Sodium 133 mEq/L (136-145); eGFR For African Americans > 60 (> 60); eGFR For Non-African Americans 54 (> 60)
[2018-12-12] MEDS ORDERED: Insulin LISPRO 300 UNITS/3 ML VIAL SQ SCH (21:00)
[2018-12-12] MEDS: Insulin DETEMIR 100 UNIT/ML X5UNITS SQ SCH ×2 (21:32→23:50)
[2018-12-12] MEDS: Apixaban 5 MG TABLET PO SCH ×2 (21:32→23:50)
[2018-12-12] MEDS: Magnesium Oxide 400 MG TABLET PO SCH ×2 (21:33→23:50)
[2018-12-12] MEDS: Insulin LISPRO 300 UNITS/3 ML VIAL SQ SCH ×2 (23:48→23:49)
[2018-12-12] MEDS: Furosemide 40 MG TABLET PO SCH (23:49)
[2018-12-12] MEDS: Aspirin 81 MG TAB.CHEW PO SCH (23:50)
[2018-12-12] MEDS: predniSONE 20 MG TABLET PO SCH (23:51)
[2018-12-12] MEDS: Metoprolol XL (24 HR) Succ 50 MG TAB.ER.24H PO SCH (23:51)
[2018-12-12] MEDS: BuPROPion SR (12 HR) 150 MG TABLET PO SCH (23:51)
[2018-12-13] MEDS: Ipratropium/Albuterol Neb 3 ML IH SCH ×5 (00:14→10:57)
[2018-12-13] MEDS: *HR* Dextrose 50 % in Water (Syg) 50 ML SYRINGE IVP PRN ×2 (01:34→03:37)
[2018-12-13 02:04] LABS: Adenovirus Not Detected (Not Detect); Bordetella Pertussis Not Detected (Not Detect); Chlamydophila pneumoniae Not Detected (Not Detect); Coronavirus 229E Not Detected (Not Detect); Coronavirus HKU1 Not Detected (Not Detect); Coronavirus NL63 Not Detected (Not Detect); Coronavirus OC43 Not Detected (Not Detect); Human Metapneumovirus Not Detected (Not Detect); Human Rhinovirus/Enterovirus Not Detected (Not Detect); Influenza A Subtype 2009 H1 Not Detected (Not Detect); Influenza A Untypeable Not Detected (Not Detect); Influenza B Not Detected (Not Detect); Mycoplasma pneumoniae Not Detected (Not Detect); Parainfluenza Virus 1 Not Detected (Not Detect); Parainfluenza Virus 2 Not Detected (Not Detect); Parainfluenza Virus 3 Not Detected (Not Detect); Parainfluenza Virus 4 Not Detected (Not Detect); Respiratory Syncytial Virus Not Detected (Not Detect)
[2018-12-13 02:10] LABS: Hematocrit 35.2 % (37.5-50.1); Hemoglobin 11.2 g/dL (12.9-16.9); Mean Corpuscular HGB Conc 31.8 g/dL (31.6-35.5); Mean Corpuscular Hemoglobin 27.3 pg (28.0-33.3); Mean Corpuscular Volume 85.6 fL (83.0-100.0); Mean Platelet Volume 12.3 fL (9.4-12.4); Platelet Count 145 K/mcL (140-400); Red Blood Count 4.11 M/mcL (4.19-5.50); Red Cell Distribution Width 15.2 % (11.5-14.5); White Blood Count 9.3 K/mcL (4.3-11.1)
[2018-12-13 07:18] LABS: BUN/Creatinine Ratio 36 (6-26); Blood Urea Nitrogen 41 mg/dL (8-23); Calcium 9.6 mg/dL (8.6-10.3); Carbon Dioxide 39 mEq/L (23-29); Chloride 96 mEq/L (98-107); Glucose 89 mg/dL (70-105); Osmolality,Calculated 302 (280-300); Potassium 3.9 mEq/L (3.5-5.1); Sodium 141 mEq/L (136-145); eGFR For African Americans > 60 (> 60); eGFR For Non-African Americans > 60 (> 60)
[2018-12-13 07:32] VITALS: BP 105/72
[2018-12-13] MEDS: Insulin LISPRO 300 UNITS/3 ML VIAL SQ SCH (08:18)
[2018-12-13] MEDS: Aspirin 81 MG TAB.CHEW PO SCH (08:21)
[2018-12-13] MEDS: Magnesium Oxide 400 MG TABLET PO SCH (08:21)
[2018-12-13] MEDS: Metoprolol XL (24 HR) Succ 50 MG TAB.ER.24H PO SCH (08:21)
[2018-12-13] MEDS: Furosemide 40 MG TABLET PO SCH (08:21)
[2018-12-13] MEDS: predniSONE 20 MG TABLET PO SCH (08:21)
[2018-12-13] MEDS: Apixaban 5 MG TABLET PO SCH (08:21)
[2018-12-13] MEDS: Insulin DETEMIR 100 UNIT/ML X5UNITS SQ SCH (08:22)
== END 2018-12-13 12:02 | disposition home or self-care (01) | DRG 292 ==
LOC: 2NENU 10:08 → EMEROOARM 10:08 → SUATTDRO 13:44 → 2NENU 14:59
PROVIDERS: ADMIT Internal Medicine; ATTEND Family Medicine

== ENCOUNTER 2018-12-23 21:39 | Inpatient (IN) ==
[2018-12-23 22:18] LABS: Basophils % 0.3 %; Eosinophils # 0.1 K/mcL (0.0-0.6); Hematocrit 38.1 % (37.5-50.1); Hemoglobin 11.5 g/dL (12.9-16.9); Immature Granulocytes % 0.3 % (0-4); Lymphocytes # 1.3 K/mcL (0.6-4.6); Mean Corpuscular HGB Conc 30.2 g/dL (31.6-35.5); Mean Corpuscular Hemoglobin 27.3 pg (28.0-33.3); Mean Corpuscular Volume 90.3 fL (83.0-100.0); Mean Platelet Volume 12.5 fL (9.4-12.4); Monocytes # 0.5 K/mcL (0.0-1.3); Monocytes % 6.6 %; Neutrophils # 5.9 K/mcL (1.6-8.9); Platelet Count 198 K/mcL (140-400); Red Blood Count 4.22 M/mcL (4.19-5.50); Red Cell Distribution Width 16.3 % (11.5-14.5); Segmented Neutrophils % 74.8 %; White Blood Count 7.9 K/mcL (4.3-11.1)
[2018-12-23 22:39] LABS: BUN/Creatinine Ratio 24 (6-26); Blood Urea Nitrogen 32 mg/dL (8-23); Carbon Dioxide 32 mEq/L (23-29); Chloride 99 mEq/L (98-107); Glucose 326 mg/dL (70-105); Osmolality,Calculated 302 (280-300); Potassium 5.4 mEq/L (3.5-5.1); Sodium 136 mEq/L (136-145); eGFR For African Americans > 60 (> 60); eGFR For Non-African Americans 54 (> 60)
[2018-12-23 22:44] LABS: Troponin I 0.11 ng/mL (< 0.04)
[2018-12-23] MEDS ORDERED: Furosemide 20 MG/2 ML VIAL IVP ONE (22:47)
[2018-12-24] MEDS ORDERED: tiZANidine 4 MG TABLET PO PRN (00:37)
[2018-12-24] MEDS ORDERED: Nitroglycerin 0.4 MG TAB.SUBL SL PRN (00:37)
[2018-12-24] MEDS ORDERED: Furosemide 40 MG/4 ML VIAL IVP ONE (00:41)
[2018-12-24] MEDS ORDERED: *HR* Dextrose 50 % in Water (Syg) 50 ML SYRINGE IVP PRN (00:48)
[2018-12-24] MEDS ORDERED: Dextrose Gel 15 GM/37.5 ML TUBE PO PRN ×2 (00:48)
[2018-12-24] MEDS ORDERED: Insulin DETEMIR 100 UNIT/ML X5UNITS SQ SCH (00:48)
[2018-12-24] MEDS: Ipratropium/Albuterol Neb 3 ML IH SCH ×2 (00:58→04:11)
[2018-12-24 05:08] LABS: BUN/Creatinine Ratio 24 (6-26); Blood Urea Nitrogen 29 mg/dL (8-23); Calcium 8.9 mg/dL (8.6-10.3); Carbon Dioxide 32 mEq/L (23-29); Chloride 101 mEq/L (98-107); Glucose 58 mg/dL (70-105); Osmolality,Calculated 296 (280-300); Potassium 4.3 mEq/L (3.5-5.1); Sodium 141 mEq/L (136-145); eGFR For African Americans > 60 (> 60); eGFR For Non-African Americans 60 (> 60)
[2018-12-24] MEDS ORDERED: D5% in Water 1,000 ML IVC PRN (07:43)
[2018-12-24] MEDS: Spironolactone 25 MG TABLET PO SCH (08:11)
[2018-12-24] MEDS: Magnesium Oxide 400 MG TABLET PO SCH ×2 (08:11→22:13)
[2018-12-24] MEDS: Apixaban 5 MG TABLET PO SCH ×2 (08:11→22:13)
[2018-12-24] MEDS: predniSONE 20 MG TABLET PO SCH (08:12)
[2018-12-24] MEDS: Furosemide 40 MG/4 ML VIAL IVP SCH (08:12)
[2018-12-24] MEDS: Insulin LISPRO 300 UNITS/3 ML VIAL SQ SCH ×4 (08:12→22:13)
[2018-12-24] MEDS: Metoprolol XL (24 HR) Succ 50 MG TAB.ER.24H PO SCH (08:12)
[2018-12-24] MEDS: BuPROPion SR (12 HR) 150 MG TABLET PO SCH ×2 (08:12→22:13)
[2018-12-24] MEDS: Ipratropium/Albuterol Neb 3 ML IH PRN ×2 (08:24→15:29)
[2018-12-24] MEDS: Menthol 9.1 MG LOZENGE PO PRN (17:28)
[2018-12-24] MEDS: Insulin DETEMIR 100 UNIT/ML X5UNITS SQ SCH (22:13)
[2018-12-25] MEDS: Ipratropium/Albuterol Neb 3 ML IH PRN ×2 (03:21→19:36)
[2018-12-25 06:01] LABS: Basophils % 0.1 %; Eosinophils % 0.4 %; Hematocrit 34.4 % (37.5-50.1); Hemoglobin 10.4 g/dL (12.9-16.9); Immature Granulocytes % 0.4 % (0-4); Lymphocytes # 1.2 K/mcL (0.6-4.6); Lymphocytes % 12.1 %; Mean Corpuscular HGB Conc 30.2 g/dL (31.6-35.5); Mean Corpuscular Volume 89.4 fL (83.0-100.0); Mean Platelet Volume 12.3 fL (9.4-12.4); Monocytes # 0.8 K/mcL (0.0-1.3); Monocytes % 7.9 %; Neutrophils # 7.9 K/mcL (1.6-8.9); Platelet Count 165 K/mcL (140-400); Red Blood Count 3.85 M/mcL (4.19-5.50); Red Cell Distribution Width 16.1 % (11.5-14.5); Segmented Neutrophils % 79.1 %; White Blood Count 9.9 K/mcL (4.3-11.1)
[2018-12-25 06:22] LABS: Calcium 8.9 mg/dL (8.6-10.3); Magnesium 2.3 mg/dL (1.6-2.6); Potassium 4.8 mEq/L (3.5-5.1)
[2018-12-25] MEDS: Menthol 9.1 MG LOZENGE PO PRN (06:39)
[2018-12-25] MEDS: BuPROPion SR (12 HR) 150 MG TABLET PO SCH ×2 (08:08→22:09)
[2018-12-25] MEDS: Furosemide 40 MG/4 ML VIAL IVP SCH (08:08)
[2018-12-25] MEDS: Magnesium Oxide 400 MG TABLET PO SCH ×2 (08:08→22:09)
[2018-12-25] MEDS: predniSONE 20 MG TABLET PO SCH (08:08)
[2018-12-25] MEDS: Metoprolol XL (24 HR) Succ 50 MG TAB.ER.24H PO SCH (08:08)
[2018-12-25] MEDS: Spironolactone 25 MG TABLET PO SCH (08:08)
[2018-12-25] MEDS: Insulin LISPRO 300 UNITS/3 ML VIAL SQ SCH ×4 (08:08→22:10)
[2018-12-25] MEDS: Apixaban 5 MG TABLET PO SCH ×2 (08:13→22:09)
[2018-12-25] MEDS: Insulin DETEMIR 100 UNIT/ML X5UNITS SQ SCH (22:09)
[2018-12-25] MEDS: Ipratropium/Albuterol Neb 3 ML IH SCH (23:18)
[2018-12-26] MEDS: Ipratropium/Albuterol Neb 3 ML IH SCH ×5 (03:48→19:56)
[2018-12-26 06:26] LABS: Basophils % 0.2 %; Eosinophils % 0.2 %; Hematocrit 35.2 % (37.5-50.1); Immature Granulocytes % 0.4 % (0-4); Lymphocytes # 1.4 K/mcL (0.6-4.6); Lymphocytes % 14.3 %; Mean Corpuscular HGB Conc 31.3 g/dL (31.6-35.5); Mean Corpuscular Hemoglobin 27.2 pg (28.0-33.3); Mean Corpuscular Volume 87.1 fL (83.0-100.0); Mean Platelet Volume 12.4 fL (9.4-12.4); Monocytes # 0.7 K/mcL (0.0-1.3); Monocytes % 7.3 %; Neutrophils # 7.5 K/mcL (1.6-8.9); Platelet Count 167 K/mcL (140-400); Red Blood Count 4.04 M/mcL (4.19-5.50); Red Cell Distribution Width 16.2 % (11.5-14.5); Segmented Neutrophils % 77.6 %; White Blood Count 9.7 K/mcL (4.3-11.1)
[2018-12-26 06:36] LABS: Magnesium 2.6 mg/dL (1.6-2.6); Potassium 4.9 mEq/L (3.5-5.1)
[2018-12-26] MEDS: Metoprolol XL (24 HR) Succ 50 MG TAB.ER.24H PO SCH (07:40)
[2018-12-26] MEDS: Aspirin 81 MG TAB.CHEW PO SCH (07:48)
[2018-12-26] MEDS: BuPROPion SR (12 HR) 150 MG TABLET PO SCH ×2 (07:48→22:09)
[2018-12-26] MEDS: Magnesium Oxide 400 MG TABLET PO SCH ×2 (07:48→22:09)
[2018-12-26] MEDS: predniSONE 20 MG TABLET PO SCH (07:48)
[2018-12-26] MEDS: Spironolactone 25 MG TABLET PO SCH (07:49)
[2018-12-26] MEDS: Apixaban 5 MG TABLET PO SCH ×2 (07:49→22:10)
[2018-12-26] MEDS: Insulin LISPRO 300 UNITS/3 ML VIAL SQ SCH ×4 (07:49→22:12)
[2018-12-26] MEDS: Furosemide 40 MG/4 ML VIAL IVP SCH (07:49)
[2018-12-26] MEDS: Insulin DETEMIR 100 UNIT/ML X5UNITS SQ SCH (22:10)
[2018-12-27] MEDS: Ipratropium/Albuterol Neb 3 ML IH SCH ×7 (00:39→23:29)
[2018-12-27] MEDS: Menthol 9.1 MG LOZENGE PO PRN (04:00)
[2018-12-27] MEDS: BuPROPion SR (12 HR) 150 MG TABLET PO SCH ×2 (07:59→20:19)
[2018-12-27] MEDS: Apixaban 5 MG TABLET PO SCH ×2 (07:59→20:19)
[2018-12-27] MEDS: Magnesium Oxide 400 MG TABLET PO SCH ×2 (07:59→20:19)
[2018-12-27] MEDS: Aspirin 81 MG TAB.CHEW PO SCH (07:59)
[2018-12-27] MEDS: Spironolactone 25 MG TABLET PO SCH (07:59)
[2018-12-27] MEDS: Metoprolol XL (24 HR) Succ 50 MG TAB.ER.24H PO SCH (07:59)
[2018-12-27] MEDS: predniSONE 20 MG TABLET PO SCH (07:59)
[2018-12-27] MEDS: Insulin LISPRO 300 UNITS/3 ML VIAL SQ SCH ×7 (08:00→20:20)
[2018-12-27] MEDS: Furosemide 40 MG/4 ML VIAL IVP SCH (08:00)
[2018-12-27 09:02] LABS: Basophils % 0.1 %; Eosinophils % 0.3 %; Hematocrit 34.9 % (37.5-50.1); Hemoglobin 10.6 g/dL (12.9-16.9); Immature Granulocytes % 0.3 % (0-4); Lymphocytes # 1.4 K/mcL (0.6-4.6); Lymphocytes % 11.8 %; Mean Corpuscular HGB Conc 30.4 g/dL (31.6-35.5); Mean Corpuscular Hemoglobin 27.1 pg (28.0-33.3); Mean Corpuscular Volume 89.3 fL (83.0-100.0); Mean Platelet Volume 12.3 fL (9.4-12.4); Monocytes # 0.5 K/mcL (0.0-1.3); Monocytes % 4.6 %; Neutrophils # 9.5 K/mcL (1.6-8.9); Platelet Count 153 K/mcL (140-400); Red Blood Count 3.91 M/mcL (4.19-5.50); Red Cell Distribution Width 16.1 % (11.5-14.5); Segmented Neutrophils % 82.9 %; White Blood Count 11.4 K/mcL (4.3-11.1)
[2018-12-27 09:23] LABS: BUN/Creatinine Ratio 34 (6-26); Blood Urea Nitrogen 46 mg/dL (8-23); Calcium 9.3 mg/dL (8.6-10.3); Carbon Dioxide 32 mEq/L (23-29); Chloride 98 mEq/L (98-107); Glucose 239 mg/dL (70-105); Magnesium 2.2 mg/dL (1.6-2.6); Osmolality,Calculated 300 (280-300); Potassium 4.3 mEq/L (3.5-5.1); Sodium 135 mEq/L (136-145); eGFR For African Americans > 60 (> 60); eGFR For Non-African Americans 52 (> 60)
[2018-12-27] MEDS: Insulin DETEMIR 100 UNIT/ML X5UNITS SQ SCH (20:19)
[2018-12-28] MEDS: Ipratropium/Albuterol Neb 3 ML IH SCH ×4 (00:22→11:05)
[2018-12-28 06:19] LABS: Basophils % 0.1 %; Eosinophils % 0.1 %; Hematocrit 36.6 % (37.5-50.1); Hemoglobin 10.7 g/dL (12.9-16.9); Immature Granulocytes % 0.3 % (0-4); Lymphocytes # 1.2 K/mcL (0.6-4.6); Lymphocytes % 10.6 %; Mean Corpuscular HGB Conc 29.2 g/dL (31.6-35.5); Mean Corpuscular Hemoglobin 26.7 pg (28.0-33.3); Mean Corpuscular Volume 91.3 fL (83.0-100.0); Mean Platelet Volume 12.1 fL (9.4-12.4); Monocytes % 8.5 %; Neutrophils # 9.4 K/mcL (1.6-8.9); Platelet Count 149 K/mcL (140-400); Red Blood Count 4.01 M/mcL (4.19-5.50); Red Cell Distribution Width 16.1 % (11.5-14.5); Segmented Neutrophils % 80.4 %; White Blood Count 11.7 K/mcL (4.3-11.1)
[2018-12-28 06:40] LABS: BUN/Creatinine Ratio 34 (6-26); Blood Urea Nitrogen 44 mg/dL (8-23); Calcium 9.4 mg/dL (8.6-10.3); Carbon Dioxide 34 mEq/L (23-29); Chloride 98 mEq/L (98-107); Glucose 260 mg/dL (70-105); Magnesium 2.3 mg/dL (1.6-2.6); Osmolality,Calculated 302 (280-300); Potassium 4.8 mEq/L (3.5-5.1); Sodium 136 mEq/L (136-145); eGFR For African Americans > 60 (> 60); eGFR For Non-African Americans 56 (> 60)
[2018-12-28 06:54] VITALS: BP 101/67
[2018-12-28] MEDS ORDERED: Insulin DETEMIR 100 UNIT/ML X5UNITS SQ ONE (07:22)
[2018-12-28] MEDS: Magnesium Oxide 400 MG TABLET PO SCH (08:23)
[2018-12-28] MEDS: Metoprolol XL (24 HR) Succ 50 MG TAB.ER.24H PO SCH (08:23)
[2018-12-28] MEDS: Aspirin 81 MG TAB.CHEW PO SCH (08:23)
[2018-12-28] MEDS: Apixaban 5 MG TABLET PO SCH (08:23)
[2018-12-28] MEDS: Furosemide 40 MG/4 ML VIAL IVP SCH (08:23)
[2018-12-28] MEDS: Insulin LISPRO 300 UNITS/3 ML VIAL SQ SCH ×2 (08:24→08:25)
[2018-12-28] MEDS: Spironolactone 25 MG TABLET PO SCH (08:24)
[2018-12-28] MEDS: predniSONE 20 MG TABLET PO SCH (08:24)
[2018-12-28] MEDS: BuPROPion SR (12 HR) 150 MG TABLET PO SCH (08:24)
[2018-12-28] MEDS ORDERED: Insulin DETEMIR 100 UNIT/ML X5UNITS SQ SCH (09:00)
== END 2018-12-28 12:54 | disposition home or self-care (01) | DRG 291 ==
LOC: 2ANU 21:39 → EMEROOARM 21:39 → SUATTDRO 23:36 → 2ANU 23:57
PROVIDERS: ADMIT Internal Medicine; ATTEND Pharmacist

== ENCOUNTER 2019-11-22 14:40 | Inpatient (IN) ==
[2019-11-22] MEDS ORDERED: methylPREDNISolone 125 MG/2 ML VIAL IVP ONE (15:26)
[2019-11-22] MEDS ORDERED: Ipratropium/Albuterol Neb 3 ML IH ONE (15:26)
[2019-11-22 15:52] LABS: Basophils % 0.2 %; Eosinophils % 0.2 %; Hematocrit 36.1 % (37.5-50.1); Hemoglobin 11.1 g/dL (12.9-16.9); Immature Granulocytes % 0.3 % (0-4); Lymphocytes # 0.5 K/mcL (0.6-4.6); Lymphocytes % 7.4 %; Mean Corpuscular HGB Conc 30.7 g/dL (31.6-35.5); Mean Corpuscular Hemoglobin 28.2 pg (28.0-33.3); Mean Corpuscular Volume 91.9 fL (83.0-100.0); Monocytes # 0.2 K/mcL (0.0-1.3); Monocytes % 2.7 %; Neutrophils # 5.5 K/mcL (1.6-8.9); Platelet Count 166 K/mcL (140-400); Red Blood Count 3.93 M/mcL (4.19-5.50); Red Cell Distribution Width 14.4 % (11.5-14.5); Segmented Neutrophils % 89.2 %; White Blood Count 6.2 K/mcL (4.3-11.1)
[2019-11-22 16:26] LABS: BUN/Creatinine Ratio 21 (6-26); Blood Urea Nitrogen 23 mg/dL (8-23); Calcium 9.1 mg/dL (8.6-10.3); Carbon Dioxide 35 mEq/L (23-29); Chloride 94 mEq/L (98-107); Glucose 403 mg/dL (70-105); Osmolality,Calculated 301 (280-300); Potassium 4.4 mEq/L (3.5-5.1); Sodium 135 mEq/L (136-145); Troponin I 0.07 ng/mL (< 0.04); eGFR For African Americans > 60 (> 60); eGFR For Non-African Americans > 60 (> 60)
[2019-11-22] MEDS ORDERED: Furosemide 40 MG/4 ML VIAL IVP ONE (16:26)
[2019-11-22] MEDS ORDERED: Aspirin 325 MG TABLET PO ONE (16:26)
[2019-11-22 17:06] LABS: Adenovirus Not Detected (Not Detect); Bordetella Pertussis Not Detected (Not Detect); Chlamydophila pneumoniae Not Detected (Not Detect); Coronavirus 229E Not Detected (Not Detect); Coronavirus HKU1 Not Detected (Not Detect); Coronavirus NL63 Not Detected (Not Detect); Coronavirus OC43 Not Detected (Not Detect); Human Metapneumovirus Not Detected (Not Detect); Human Rhinovirus/Enterovirus Not Detected (Not Detect); Influenza A Subtype 2009 H1 Not Detected (Not Detect); Influenza B Not Detected (Not Detect); Mycoplasma pneumoniae Not Detected (Not Detect); Parainfluenza Virus 1 Not Detected (Not Detect); Parainfluenza Virus 2 Not Detected (Not Detect); Parainfluenza Virus 3 Not Detected (Not Detect); Parainfluenza Virus 4 Not Detected (Not Detect); Respiratory Syncytial Virus Not Detected (Not Detect); SARS-CoV-2 Not Detected (Not Detect)
[2019-11-22] MEDS ORDERED: Naloxone 0.4 MG/ML INJ IVP PRN (17:18)
[2019-11-22] MEDS ORDERED: *HR* Promethazine 25 MG/ML VIAL IVP PRN (17:18)
[2019-11-22] MEDS ORDERED: Ipratropium/Albuterol Neb 3 ML IH PRN (17:19)
[2019-11-22] MEDS ORDERED: Perflutren Lipid Microsphere 1.3 ML in 0.9 % Sodium Chloride 8.7 ML IVP PRN (17:19)
[2019-11-22] MEDS ORDERED: Nitroglycerin 0.4 MG TAB.SUBL SL PRN (17:32)
[2019-11-22] MEDS ORDERED: *HR* Dextrose 50 % in Water (Vial) 50 ML VIAL IVP PRN (17:33)
[2019-11-22] MEDS ORDERED: Dextrose Gel 15 GM/37.5 ML TUBE PO PRN ×2 (17:33)
[2019-11-22] MEDS ORDERED: D5% in Water 1,000 ML IVC PRN (17:33)
[2019-11-22 19:46] LABS: VBG HCO3 35 mEq/L (21-27); VBG PCO2 69 mmHg (41-51); VBG PH 7.32 pH Units (7.32-7.42); VBG PO2 59 mmHg (25-50)
[2019-11-22] MEDS ORDERED: Furosemide 40 MG/4 ML VIAL IVP SCH (21:00)
[2019-11-22] MEDS: Insulin DETEMIR 100 UNIT/ML X5UNITS SQ SCH (21:39)
[2019-11-22] MEDS: Apixaban 5 MG TABLET PO SCH (21:39)
[2019-11-22] MEDS: BuPROPion SR (12 HR) 150 MG TABLET PO SCH (21:39)
[2019-11-22] MEDS ORDERED: Insulin LISPRO 300 UNITS/3 ML VIAL SQ ONE ×2 (22:02→23:48)
[2019-11-22] MEDS ORDERED: Insulin Human Regular 10 UNIT in 0.9 % Sodium Chloride 10 ML IV ONE ×2 (22:02→23:47)
[2019-11-22] MEDS: Ipratropium/Albuterol Neb 3 ML IH SCH (22:15)
[2019-11-22] MEDS: Budesonide Neb 0.5 MG/2 ML IH SCH (22:15)
[2019-11-23] MEDS: Ipratropium/Albuterol Neb 3 ML IH SCH ×4 (03:31→22:49)
[2019-11-23] MEDS: Insulin LISPRO 300 UNITS/3 ML VIAL SQ SCH ×3 (09:27→16:43)
[2019-11-23] MEDS: Insulin DETEMIR 100 UNIT/ML X5UNITS SQ SCH ×2 (09:29→19:46)
[2019-11-23] MEDS: Furosemide 40 MG/4 ML VIAL IVP SCH ×2 (09:30→16:44)
[2019-11-23] MEDS: Apixaban 5 MG TABLET PO SCH ×2 (09:31→19:46)
[2019-11-23] MEDS: Metoprolol XL (24 HR) Succ 50 MG TAB.ER.24H PO SCH (09:32)
[2019-11-23] MEDS: BuPROPion SR (12 HR) 150 MG TABLET PO SCH ×2 (09:32→19:46)
[2019-11-23 09:46] LABS: Hematocrit 35.6 % (37.5-50.1); Hemoglobin 11.3 g/dL (12.9-16.9); Immature Granulocytes % 0.2 % (0-4); Lymphocytes # 0.6 K/mcL (0.6-4.6); Lymphocytes % 7.1 %; Mean Corpuscular HGB Conc 31.7 g/dL (31.6-35.5); Mean Corpuscular Volume 91.5 fL (83.0-100.0); Mean Platelet Volume 11.4 fL (9.4-12.4); Monocytes # 0.4 K/mcL (0.0-1.3); Monocytes % 4.3 %; Neutrophils # 7.6 K/mcL (1.6-8.9); Platelet Count 172 K/mcL (140-400); Red Blood Count 3.89 M/mcL (4.19-5.50); Red Cell Distribution Width 14.1 % (11.5-14.5); Segmented Neutrophils % 88.4 %; White Blood Count 8.6 K/mcL (4.3-11.1)
[2019-11-23 10:08] LABS: BUN/Creatinine Ratio 25 (6-26); Blood Urea Nitrogen 29 mg/dL (8-23); Carbon Dioxide 36 mEq/L (23-29); Chloride 94 mEq/L (98-107); Glucose 353 mg/dL (70-105); Magnesium 1.7 mg/dL (1.6-2.6); Osmolality,Calculated 304 (280-300); Potassium 4.3 mEq/L (3.5-5.1); Sodium 137 mEq/L (136-145); eGFR For African Americans > 60 (> 60); eGFR For Non-African Americans > 60 (> 60)
[2019-11-23] MEDS: Budesonide Neb 0.5 MG/2 ML IH SCH ×2 (10:40→22:49)
[2019-11-24] MEDS: Ipratropium/Albuterol Neb 3 ML IH SCH ×2 (04:33→11:07)
[2019-11-24 05:30] LABS: Hematocrit 34.6 % (37.5-50.1); Hemoglobin 10.6 g/dL (12.9-16.9); Mean Corpuscular HGB Conc 30.6 g/dL (31.6-35.5); Mean Corpuscular Hemoglobin 28.1 pg (28.0-33.3); Mean Corpuscular Volume 91.8 fL (83.0-100.0); Mean Platelet Volume 11.5 fL (9.4-12.4); Platelet Count 198 K/mcL (140-400); Red Blood Count 3.77 M/mcL (4.19-5.50); Red Cell Distribution Width 14.5 % (11.5-14.5); White Blood Count 11.6 K/mcL (4.3-11.1)
[2019-11-24 05:46] LABS: BUN/Creatinine Ratio 34 (6-26); Blood Urea Nitrogen 45 mg/dL (8-23); Carbon Dioxide 36 mEq/L (23-29); Chloride 96 mEq/L (98-107); Glucose 246 mg/dL (70-105); Osmolality,Calculated 306 (280-300); Potassium 4.1 mEq/L (3.5-5.1); Sodium 138 mEq/L (136-145); eGFR For African Americans > 60 (> 60); eGFR For Non-African Americans 54 (> 60)
[2019-11-24 07:45] VITALS: BP 125/78
[2019-11-24] MEDS: Metoprolol XL (24 HR) Succ 50 MG TAB.ER.24H PO SCH (08:05)
[2019-11-24] MEDS: BuPROPion SR (12 HR) 150 MG TABLET PO SCH (08:05)
[2019-11-24] MEDS: Furosemide 40 MG/4 ML VIAL IVP SCH (08:05)
[2019-11-24] MEDS: Apixaban 5 MG TABLET PO SCH (08:05)
[2019-11-24] MEDS: Insulin LISPRO 300 UNITS/3 ML VIAL SQ SCH (08:06)
[2019-11-24] MEDS: Insulin DETEMIR 100 UNIT/ML X5UNITS SQ SCH (08:07)
[2019-11-24] MEDS: Budesonide Neb 0.5 MG/2 ML IH SCH (11:07)
[2019-11-24] MEDS ORDERED: lisinopriL 5 MG TABLET PO SCH (14:15)
[2019-11-25] MEDS ORDERED: Furosemide 40 MG TABLET PO SCH (08:00)
== END 2019-11-24 14:12 | disposition home or self-care (01) | DRG 280 ==
LOC: SUATTDRO → EMEROOARM 14:40 → 3ANU 14:40
PROVIDERS: ADMIT Internal Medicine; ATTEND Internal Medicine

== ENCOUNTER 2019-12-28 12:19 | Inpatient (IN) ==
[2019-12-28] MEDS ORDERED: Furosemide 40 MG/4 ML VIAL IVP ONE (12:33)
[2019-12-28 12:55] LABS: Basophils % 0.3 %; Eosinophils # 0.1 K/mcL (0.0-0.6); Eosinophils % 0.8 %; Hematocrit 33.2 % (37.5-50.1); Hemoglobin 10.3 g/dL (12.9-16.9); Immature Granulocytes % 0.3 % (0-4); Lymphocytes # 0.6 K/mcL (0.6-4.6); Lymphocytes % 7.5 %; Mean Corpuscular Hemoglobin 27.5 pg (28.0-33.3); Mean Corpuscular Volume 88.8 fL (83.0-100.0); Mean Platelet Volume 11.1 fL (9.4-12.4); Monocytes # 0.5 K/mcL (0.0-1.3); Monocytes % 6.7 %; Neutrophils # 6.3 K/mcL (1.6-8.9); Platelet Count 181 K/mcL (140-400); Red Blood Count 3.74 M/mcL (4.19-5.50); Red Cell Distribution Width 14.6 % (11.5-14.5); Segmented Neutrophils % 84.4 %; White Blood Count 7.4 K/mcL (4.3-11.1)
[2019-12-28 13:08] LABS: INR 1.6
[2019-12-28 13:24] LABS: Alanine Aminotransferase 11 Units/L (7-52); Albumin 3.2 g/dL (3.5-5.7); Alkaline Phosphatase 108 Units/L (34-104); Aspartate Amino Transferase 12 Units/L (13-39); BUN/Creatinine Ratio 13 (6-26); Bilirubin,Total 0.9 mg/dL (0.3-1.0); Blood Urea Nitrogen 16 mg/dL (8-23); Calcium 8.9 mg/dL (8.6-10.3); Carbon Dioxide 36 mEq/L (23-29); Chloride 88 mEq/L (98-107); Globulin 3.2 g/dL (2.4-3.5); Glucose 506 mg/dL (70-105); Osmolality,Calculated 296 (280-300); Potassium 3.5 mEq/L (3.5-5.1); Sodium 131 mEq/L (136-145); Total Protein 6.4 g/dL (6.4-8.9); Troponin I 0.29 ng/mL (< 0.04); eGFR For African Americans > 60 (> 60); eGFR For Non-African Americans 59 (> 60)
[2019-12-28] MEDS ORDERED: Naloxone 0.4 MG/ML INJ IVP PRN (15:05)
[2019-12-28] MEDS ORDERED: *HR* Dextrose 50 % in Water (Vial) 50 ML VIAL IVP PRN ×2 (15:06→18:16)
[2019-12-28] MEDS ORDERED: Nitroglycerin 0.4 MG TAB.SUBL SL PRN (15:10)
[2019-12-28] MEDS ORDERED: Insulin Human Regular 100 UNIT in 0.9 % Sodium Chloride 100 ML IVC SCH (15:15)
[2019-12-28] MEDS: Ipratropium/Albuterol Neb 3 ML IH SCH ×2 (16:01→21:06)
[2019-12-28 16:41] LABS: Magnesium 1.7 mg/dL (1.6-2.6)
[2019-12-28 16:43] LABS: Troponin I 0.3 ng/mL (< 0.04)
[2019-12-28] MEDS ORDERED: Insulin DETEMIR 100 UNIT/ML X5UNITS SQ ONE (18:11)
[2019-12-28] MEDS ORDERED: Aspirin 325 MG TABLET PO ONE (18:14)
[2019-12-28] MEDS ORDERED: *HR* Heparin 5,000 UNIT/ML VIAL IVP PRN (18:15)
[2019-12-28] MEDS ORDERED: *HR* Heparin 5,000 UNIT/ML VIAL IVP ONE (18:15)
[2019-12-28] MEDS ORDERED: Heparin 25,000UNIT/250ML 1/2NS 25,000 UNIT/250 ML IV.SOLN IVC SCH (18:15)
[2019-12-28] MEDS ORDERED: Dextrose Gel 15 GM/37.5 ML TUBE PO PRN ×2 (18:16)
[2019-12-28] MEDS ORDERED: D5% in Water 1,000 ML IVC PRN (18:16)
[2019-12-28] MEDS: Insulin LISPRO 300 UNITS/3 ML VIAL SQ SCH ×2 (19:02→19:58)
[2019-12-28] MEDS: Furosemide 40 MG/4 ML VIAL IVP SCH (19:51)
[2019-12-28] MEDS: Heparin 25,000UNIT/250ML 1/2NS 25,000 UNIT/250 ML IV.SOLN IVC SCH (19:53)
[2019-12-28] MEDS: BuPROPion SR (12 HR) 150 MG TABLET PO SCH (19:54)
[2019-12-28 20:01] LABS: INR 1.5; Prothrombin Time 16.8 Seconds (9.4-12.1)
[2019-12-28 20:04] LABS: Heparin anti-factor XA UFH < 0.04 IU/mL (0.30-0.70)
[2019-12-28 20:17] LABS: Hematocrit 35.3 % (37.5-50.1); Hemoglobin 10.6 g/dL (12.9-16.9); Mean Corpuscular Volume 90.1 fL (83.0-100.0); Mean Platelet Volume 11.5 fL (9.4-12.4); Platelet Count 191 K/mcL (140-400); Red Blood Count 3.92 M/mcL (4.19-5.50); Red Cell Distribution Width 14.6 % (11.5-14.5); White Blood Count 7.5 K/mcL (4.3-11.1)
[2019-12-28] MEDS ORDERED: Apixaban 5 MG TABLET PO SCH (21:00)
[2019-12-28] MEDS: Budesonide Neb 0.5 MG/2 ML IH SCH (21:06)
[2019-12-29 01:58] LABS: Hematocrit 31.7 % (37.5-50.1); Hemoglobin 9.9 g/dL (12.9-16.9); Mean Corpuscular HGB Conc 31.2 g/dL (31.6-35.5); Mean Corpuscular Hemoglobin 27.8 pg (28.0-33.3); Platelet Count 174 K/mcL (140-400); Red Blood Count 3.56 M/mcL (4.19-5.50); Red Cell Distribution Width 14.6 % (11.5-14.5); White Blood Count 5.7 K/mcL (4.3-11.1)
[2019-12-29] MEDS: *HR* Heparin 5,000 UNIT/ML VIAL IVP PRN ×2 (02:18→10:55)
[2019-12-29 02:43] LABS: BUN/Creatinine Ratio 17 (6-26); Blood Urea Nitrogen 19 mg/dL (8-23); Calcium 8.6 mg/dL (8.6-10.3); Carbon Dioxide 37 mEq/L (23-29); Chloride 90 mEq/L (98-107); Glucose 297 mg/dL (70-105); Osmolality,Calculated 293 (280-300); Potassium 3.4 mEq/L (3.5-5.1); Sodium 135 mEq/L (136-145); eGFR For African Americans > 60 (> 60); eGFR For Non-African Americans > 60 (> 60)
[2019-12-29] MEDS: Ipratropium/Albuterol Neb 3 ML IH SCH ×4 (05:07→21:34)
[2019-12-29] MEDS: Insulin LISPRO 300 UNITS/3 ML VIAL SQ SCH ×4 (08:01→19:41)
[2019-12-29] MEDS: Insulin DETEMIR 100 UNIT/ML X5UNITS SQ SCH ×2 (08:01→20:51)
[2019-12-29] MEDS: Aspirin 81 MG TAB.CHEW PO SCH (08:02)
[2019-12-29] MEDS: BuPROPion SR (12 HR) 150 MG TABLET PO SCH ×2 (08:03→19:40)
[2019-12-29] MEDS: lisinopriL 5 MG TABLET PO SCH (08:03)
[2019-12-29] MEDS: Metoprolol XL (24 HR) Succ 50 MG TAB.ER.24H PO SCH (08:03)
[2019-12-29] MEDS: Budesonide Neb 0.5 MG/2 ML IH SCH ×2 (10:00→21:34)
[2019-12-29] MEDS ORDERED: 0.9 % Sodium Chloride 1,000 ML ONE (12:22)
[2019-12-29] MEDS: Heparin 25,000UNIT/250ML 1/2NS 25,000 UNIT/250 ML IV.SOLN IVC SCH (17:04)
[2019-12-29] MEDS: Furosemide 40 MG/4 ML VIAL IVP SCH (19:40)
[2019-12-30 01:09] LABS: Basophils % 0.1 %; Eosinophils # 0.1 K/mcL (0.0-0.6); Eosinophils % 0.9 %; Hematocrit 30.9 % (37.5-50.1); Hemoglobin 9.4 g/dL (12.9-16.9); Immature Granulocytes % 0.3 % (0-4); Lymphocytes # 0.9 K/mcL (0.6-4.6); Mean Corpuscular HGB Conc 30.4 g/dL (31.6-35.5); Mean Corpuscular Hemoglobin 27.4 pg (28.0-33.3); Mean Corpuscular Volume 90.1 fL (83.0-100.0); Mean Platelet Volume 11.2 fL (9.4-12.4); Monocytes # 0.6 K/mcL (0.0-1.3); Monocytes % 7.3 %; Platelet Count 178 K/mcL (140-400); Red Blood Count 3.43 M/mcL (4.19-5.50); Red Cell Distribution Width 14.7 % (11.5-14.5); Segmented Neutrophils % 79.4 %; White Blood Count 7.5 K/mcL (4.3-11.1)
[2019-12-30] MEDS: *HR* Heparin 5,000 UNIT/ML VIAL IVP PRN ×2 (01:35→16:34)
[2019-12-30] MEDS ORDERED: Ipratropium/Albuterol Neb 3 ML IH PRN (01:57)
[2019-12-30] MEDS: Ipratropium/Albuterol Neb 3 ML IH SCH ×4 (03:25→23:22)
[2019-12-30 06:22] LABS: BUN/Creatinine Ratio 18 (6-26); Blood Urea Nitrogen 23 mg/dL (8-23); Calcium 8.7 mg/dL (8.6-10.3); Carbon Dioxide 33 mEq/L (23-29); Chloride 96 mEq/L (98-107); Glucose 166 mg/dL (70-105); Osmolality,Calculated 289 (280-300); Sodium 136 mEq/L (136-145); eGFR For African Americans > 60 (> 60); eGFR For Non-African Americans 55 (> 60)
[2019-12-30] MEDS: Metoprolol XL (24 HR) Succ 50 MG TAB.ER.24H PO SCH (08:46)
[2019-12-30] MEDS: lisinopriL 5 MG TABLET PO SCH (08:46)
[2019-12-30] MEDS: Aspirin 81 MG TAB.CHEW PO SCH (08:53)
[2019-12-30] MEDS: Furosemide 40 MG/4 ML VIAL IVP SCH ×2 (08:53→21:37)
[2019-12-30] MEDS: BuPROPion SR (12 HR) 150 MG TABLET PO SCH ×2 (08:53→21:43)
[2019-12-30] MEDS: Insulin LISPRO 300 UNITS/3 ML VIAL SQ SCH ×4 (08:54→21:42)
[2019-12-30] MEDS: Insulin DETEMIR 100 UNIT/ML X5UNITS SQ SCH ×2 (08:54→21:37)
[2019-12-30] MEDS: Budesonide Neb 0.5 MG/2 ML IH SCH ×2 (10:02→23:21)
[2019-12-30] MEDS: Heparin 25,000UNIT/250ML 1/2NS 25,000 UNIT/250 ML IV.SOLN IVC SCH (16:28)
[2019-12-30] MEDS: Ipratropium/Albuterol Neb 3 ML IH PRN (20:18)
[2019-12-31] MEDS: Ipratropium/Albuterol Neb 3 ML IH PRN (02:06)
[2019-12-31] MEDS: Ipratropium/Albuterol Neb 3 ML IH SCH ×4 (03:23→22:30)
[2019-12-31 05:08] LABS: Basophils % 0.2 %; Eosinophils # 0.1 K/mcL (0.0-0.6); Eosinophils % 1.1 %; Hematocrit 30.5 % (37.5-50.1); Hemoglobin 9.3 g/dL (12.9-16.9); Immature Granulocytes % 0.3 % (0-4); Lymphocytes % 15.6 %; Mean Corpuscular HGB Conc 30.5 g/dL (31.6-35.5); Mean Corpuscular Hemoglobin 27.2 pg (28.0-33.3); Mean Corpuscular Volume 89.2 fL (83.0-100.0); Mean Platelet Volume 11.2 fL (9.4-12.4); Monocytes # 0.5 K/mcL (0.0-1.3); Monocytes % 8.2 %; Neutrophils # 4.7 K/mcL (1.6-8.9); Platelet Count 183 K/mcL (140-400); Red Blood Count 3.42 M/mcL (4.19-5.50); Red Cell Distribution Width 14.8 % (11.5-14.5); Segmented Neutrophils % 74.6 %; White Blood Count 6.2 K/mcL (4.3-11.1)
[2019-12-31 05:15] LABS: BUN/Creatinine Ratio 19 (6-26); Blood Urea Nitrogen 22 mg/dL (8-23); Calcium 8.5 mg/dL (8.6-10.3); Carbon Dioxide 34 mEq/L (23-29); Chloride 95 mEq/L (98-107); Glucose 194 mg/dL (70-105); Osmolality,Calculated 287 (280-300); Potassium 3.7 mEq/L (3.5-5.1); Sodium 134 mEq/L (136-145); eGFR For African Americans > 60 (> 60); eGFR For Non-African Americans > 60 (> 60)
[2019-12-31] MEDS: Insulin LISPRO 300 UNITS/3 ML VIAL SQ SCH ×4 (07:58→20:37)
[2019-12-31] MEDS: BuPROPion SR (12 HR) 150 MG TABLET PO SCH ×2 (08:14→20:36)
[2019-12-31] MEDS: lisinopriL 5 MG TABLET PO SCH (08:14)
[2019-12-31] MEDS: Furosemide 40 MG/4 ML VIAL IVP SCH ×2 (08:15→20:36)
[2019-12-31] MEDS: Insulin DETEMIR 100 UNIT/ML X5UNITS SQ SCH ×2 (08:15→20:36)
[2019-12-31] MEDS: Aspirin 81 MG TAB.CHEW PO SCH (08:15)
[2019-12-31] MEDS: Metoprolol XL (24 HR) Succ 50 MG TAB.ER.24H PO SCH (08:16)
[2019-12-31] MEDS: Budesonide Neb 0.5 MG/2 ML IH SCH ×2 (11:39→22:30)
[2019-12-31] MEDS ORDERED: Heparin 1,000 UNITS/500 mL 500 ML ONE (13:47)
[2019-12-31] MEDS ORDERED: ISOVUE-370 200 ML INFUS..BTL ONE ×2 (13:47→16:13)
[2019-12-31] MEDS ORDERED: 0.9 % Sodium Chloride 1,000 ML ONE ×2 (13:47→14:37)
[2019-12-31] MEDS ORDERED: *HR* Heparin 10,000 UNIT/10 ML VIAL ONE (13:47)
[2019-12-31] MEDS ORDERED: Nitroglycerin 1,000 MCG/10 ML VIAL IV ONE (13:47)
[2019-12-31] MEDS ORDERED: *HR* Midazolam HCl 2 MG/2 ML VIAL ONE (14:36)
[2019-12-31] MEDS ORDERED: *HR* FentaNYL (PF) 100 MCG/2 ML VIAL ONE (14:37)
[2019-12-31] MEDS ORDERED: 0.9 % Sodium Chloride 1,000 ML IVC SCH (16:30)
[2019-12-31] MEDS: Heparin 25,000UNIT/250ML 1/2NS 25,000 UNIT/250 ML IV.SOLN IVC SCH (17:21)
[2019-12-31] MEDS: Apixaban 5 MG TABLET PO SCH (20:35)
[2019-12-31] MEDS ORDERED: Isovue-370 500 ML BOTTLE IVP ONE (21:23)
[2020-01-01 00:29] LABS: Bilirubin,Urine Negative (Negative); Blood,Urine Trace (Negative); Clarity,Urine Clear (Clear); Color,Urine Colorless (Yellow); Glucose,Urine (UA) Normal (Normal); Ketones,Urine Negative (Negative); Leukocyte Esterase,Urine Negative (Negative); Nitrite,Urine Negative (Negative); Protein,Urine Trace mg/dL (Neg-Trace); RBC,Urine 0-3 per hpf (0-3); Specific Gravity,Urine > 1.030 (1.010-1.025); Urobilinogen,Urine Normal (Normal); WBC,Urine 0-3 per hpf (0-3)
[2020-01-01] MEDS: Ipratropium/Albuterol Neb 3 ML IH SCH ×4 (04:00→22:04)
[2020-01-01 05:21] LABS: Hematocrit 29.3 % (37.5-50.1); Hemoglobin 8.9 g/dL (12.9-16.9)
[2020-01-01 05:45] LABS: BUN/Creatinine Ratio 16 (6-26); Blood Urea Nitrogen 18 mg/dL (8-23); eGFR For African Americans > 60 (> 60); eGFR For Non-African Americans > 60 (> 60)
[2020-01-01] MEDS: Budesonide Neb 0.5 MG/2 ML IH SCH ×2 (07:57→22:05)
[2020-01-01] MEDS: Insulin LISPRO 300 UNITS/3 ML VIAL SQ SCH ×4 (09:07→21:19)
[2020-01-01] MEDS: Apixaban 5 MG TABLET PO SCH ×2 (09:07→21:18)
[2020-01-01] MEDS: Furosemide 40 MG/4 ML VIAL IVP SCH ×2 (09:07→21:19)
[2020-01-01] MEDS: Insulin DETEMIR 100 UNIT/ML X5UNITS SQ SCH ×2 (09:09→21:18)
[2020-01-01] MEDS: BuPROPion SR (12 HR) 150 MG TABLET PO SCH ×2 (09:09→21:18)
[2020-01-01] MEDS: Aspirin 81 MG TAB.CHEW PO SCH (09:09)
[2020-01-01] MEDS: Metoprolol XL (24 HR) Succ 50 MG TAB.ER.24H PO SCH (09:09)
[2020-01-02] MEDS: Ipratropium/Albuterol Neb 3 ML IH PRN (02:25)
[2020-01-02] MEDS: Ipratropium/Albuterol Neb 3 ML IH SCH ×2 (06:11→10:43)
[2020-01-02 06:44] VITALS: BP 105/67
[2020-01-02] MEDS ORDERED: Furosemide 40 MG TABLET PO SCH (08:00)
[2020-01-02] MEDS: Insulin LISPRO 300 UNITS/3 ML VIAL SQ SCH (08:17)
[2020-01-02] MEDS: Aspirin 81 MG TAB.CHEW PO SCH (08:18)
[2020-01-02] MEDS: Insulin DETEMIR 100 UNIT/ML X5UNITS SQ SCH (08:18)
[2020-01-02] MEDS: Apixaban 5 MG TABLET PO SCH (08:18)
[2020-01-02] MEDS: BuPROPion SR (12 HR) 150 MG TABLET PO SCH (08:18)
[2020-01-02] MEDS: Metoprolol XL (24 HR) Succ 50 MG TAB.ER.24H PO SCH (08:18)
[2020-01-02] MEDS ORDERED: lisinopriL 5 MG TABLET PO SCH (09:00)
[2020-01-02] MEDS: Budesonide Neb 0.5 MG/2 ML IH SCH (10:43)
== END 2020-01-02 13:09 | disposition home health service (06) | DRG 250 ==
LOC: EMEROOARM 12:19 → 3BNU 12:19
PROVIDERS: ADMIT Family Medicine; ATTEND Family Medicine

== ENCOUNTER 2020-02-16 20:56 | Inpatient (IN) ==
[2020-02-16] MEDS ORDERED: Furosemide 40 MG in 0.9 % Sodium Chloride 50 ML IV ONE (21:20)
[2020-02-16 21:34] LABS: Basophils % 0.3 %; Eosinophils # 0.1 K/mcL (0.0-0.6); Hematocrit 33.2 % (37.5-50.1); Hemoglobin 9.6 g/dL (12.9-16.9); Immature Granulocytes % 0.3 % (0-4); Lymphocytes # 0.8 K/mcL (0.6-4.6); Mean Corpuscular HGB Conc 28.9 g/dL (31.6-35.5); Mean Corpuscular Volume 93.5 fL (83.0-100.0); Monocytes # 0.5 K/mcL (0.0-1.3); Monocytes % 6.7 %; Neutrophils # 5.5 K/mcL (1.6-8.9); Platelet Count 156 K/mcL (140-400); Red Blood Count 3.55 M/mcL (4.19-5.50); Red Cell Distribution Width 16.5 % (11.5-14.5); Segmented Neutrophils % 79.7 %; White Blood Count 6.9 K/mcL (4.3-11.1)
[2020-02-16 22:04] LABS: BUN/Creatinine Ratio 14 (6-26); Blood Urea Nitrogen 15 mg/dL (8-23); Calcium 9.1 mg/dL (8.6-10.3); Carbon Dioxide 30 mEq/L (23-29); Chloride 94 mEq/L (98-107); Glucose 563 mg/dL (70-105); Osmolality,Calculated 301 (280-300); Potassium 4.3 mEq/L (3.5-5.1); Sodium 132 mEq/L (136-145); eGFR For African Americans > 60 (> 60); eGFR For Non-African Americans > 60 (> 60)
[2020-02-16 22:21] LABS: Platelet Estimate Normal (Normal)
[2020-02-16] MEDS ORDERED: Insulin Human Regular 10 UNIT in 0.9 % Sodium Chloride 10 ML IV ONE (22:47)
[2020-02-16] MEDS ORDERED: Acetaminophen 325 MG TABLET PO PRN (23:36)
[2020-02-16] MEDS ORDERED: Ondansetron 4 MG/2 ML VIAL IVP PRN (23:36)
[2020-02-16] MEDS ORDERED: D5% in Water 1,000 ML IVC PRN (23:40)
[2020-02-16] MEDS ORDERED: *HR* Dextrose 50 % in Water (Vial) 50 ML VIAL IVP PRN (23:40)
[2020-02-16] MEDS ORDERED: Dextrose Gel 15 GM/37.5 ML TUBE PO PRN ×2 (23:40)
[2020-02-17] MEDS: Metoprolol XL (24 HR) Succ 50 MG TAB.ER.24H PO SCH ×2 (00:42→08:52)
[2020-02-17] MEDS: Apixaban 5 MG TABLET PO SCH ×3 (00:42→20:01)
[2020-02-17] MEDS: Insulin LISPRO 300 UNITS/3 ML VIAL SUBQ SCH ×5 (00:43→20:05)
[2020-02-17] MEDS: Insulin DETEMIR 100 UNIT/ML X5UNITS SUBQ SCH ×3 (00:44→20:05)
[2020-02-17 01:03] LABS: Magnesium 1.8 mg/dL (1.6-2.6)
[2020-02-17] MEDS: Budesonide Neb 0.5 MG/2 ML IH SCH ×3 (01:36→22:30)
[2020-02-17] MEDS: Ipratropium/Albuterol Neb 3 ML IH PRN ×3 (01:44→22:30)
[2020-02-17] MEDS: Levalbuterol 1 PUFF INHALER IH SCH ×5 (01:45→22:31)
[2020-02-17 05:53] LABS: VBG HCO3 34 mEq/L (21-27); VBG PCO2 74 mmHg (41-51); VBG PH 7.27 pH Units (7.32-7.42); VBG PO2 170 mmHg (25-50)
[2020-02-17 05:54] LABS: BUN/Creatinine Ratio 16 (6-26); Blood Urea Nitrogen 15 mg/dL (8-23); Calcium 9.2 mg/dL (8.6-10.3); Carbon Dioxide 33 mEq/L (23-29); Chloride 99 mEq/L (98-107); Glucose 260 mg/dL (70-105); Magnesium 1.9 mg/dL (1.6-2.6); Osmolality,Calculated 294 (280-300); Potassium 3.8 mEq/L (3.5-5.1); Sodium 137 mEq/L (136-145); eGFR For African Americans > 60 (> 60); eGFR For Non-African Americans > 60 (> 60)
[2020-02-17 06:03] LABS: Troponin I 0.23 ng/mL (< 0.04)
[2020-02-17] MEDS ORDERED: Furosemide 40 MG/4 ML VIAL IVP SCH (08:00)
[2020-02-17] MEDS: Azithromycin 250 MG TABLET PO SCH (08:53)
[2020-02-17] MEDS: Silvasorb 44.4 ML TUBE TP SCH (15:08)
[2020-02-17] MEDS: Furosemide 40 MG/4 ML VIAL IVP SCH ×2 (15:08→20:01)
[2020-02-17] MEDS ORDERED: Budesonide Neb 0.5 MG/2 ML IH PRN (15:44)
[2020-02-18] MEDS ORDERED: HydrOXYzine 100 MG/2 ML VIAL IM ONE (00:46)
[2020-02-18 03:32] LABS: Hematocrit 31.4 % (37.5-50.1); Hemoglobin 9.2 g/dL (12.9-16.9); Mean Corpuscular HGB Conc 29.3 g/dL (31.6-35.5); Mean Corpuscular Hemoglobin 26.9 pg (28.0-33.3); Mean Corpuscular Volume 91.8 fL (83.0-100.0); Platelet Count 169 K/mcL (140-400); Red Blood Count 3.42 M/mcL (4.19-5.50); Red Cell Distribution Width 16.7 % (11.5-14.5)
[2020-02-18] MEDS: Levalbuterol 1 PUFF INHALER IH SCH ×4 (03:36→22:43)
[2020-02-18 03:44] LABS: BUN/Creatinine Ratio 25 (6-26); Blood Urea Nitrogen 26 mg/dL (8-23); Calcium 8.9 mg/dL (8.6-10.3); Carbon Dioxide 32 mEq/L (23-29); Chloride 100 mEq/L (98-107); Glucose 276 mg/dL (70-105); Magnesium 1.8 mg/dL (1.6-2.6); Osmolality,Calculated 299 (280-300); Sodium 137 mEq/L (136-145); eGFR For African Americans > 60 (> 60); eGFR For Non-African Americans > 60 (> 60)
[2020-02-18] MEDS: Metoprolol XL (24 HR) Succ 50 MG TAB.ER.24H PO SCH (08:44)
[2020-02-18] MEDS: Azithromycin 250 MG TABLET PO SCH (08:44)
[2020-02-18] MEDS: Apixaban 5 MG TABLET PO SCH ×2 (08:45→20:22)
[2020-02-18] MEDS: Silvasorb 44.4 ML TUBE TP SCH (08:46)
[2020-02-18] MEDS: Furosemide 40 MG/4 ML VIAL IVP SCH ×3 (08:46→20:28)
[2020-02-18] MEDS: Insulin LISPRO 300 UNITS/3 ML VIAL SUBQ SCH ×4 (08:46→20:22)
[2020-02-18] MEDS: Insulin DETEMIR 100 UNIT/ML X5UNITS SUBQ SCH ×2 (08:46→20:22)
[2020-02-18] MEDS ORDERED: lisinopriL 5 MG TABLET PO SCH (09:00)
[2020-02-18] MEDS ORDERED: Aspirin 81 MG TAB.CHEW PO SCH (09:00)
[2020-02-18] MEDS: Budesonide Neb 0.5 MG/2 ML IH SCH ×2 (10:48→22:43)
[2020-02-18] MEDS ORDERED: Insulin LISPRO 300 UNITS/3 ML VIAL SUBQ ONE (12:00)
[2020-02-18] MEDS: Ipratropium/Albuterol Neb 3 ML IH PRN ×2 (13:59→22:43)
[2020-02-19] MEDS: Ipratropium/Albuterol Neb 3 ML IH PRN (04:06)
[2020-02-19] MEDS: Levalbuterol 1 PUFF INHALER IH SCH ×4 (04:07→21:52)
[2020-02-19 04:26] LABS: BUN/Creatinine Ratio 33 (6-26); Blood Urea Nitrogen 33 mg/dL (8-23); Calcium 8.8 mg/dL (8.6-10.3); Carbon Dioxide 32 mEq/L (23-29); Chloride 103 mEq/L (98-107); Glucose 187 mg/dL (70-105); Magnesium 1.8 mg/dL (1.6-2.6); Osmolality,Calculated 302 (280-300); Potassium 4.2 mEq/L (3.5-5.1); Sodium 140 mEq/L (136-145); eGFR For African Americans > 60 (> 60); eGFR For Non-African Americans > 60 (> 60)
[2020-02-19] MEDS: Metoprolol XL (24 HR) Succ 50 MG TAB.ER.24H PO SCH ×2 (08:53→20:13)
[2020-02-19] MEDS: Azithromycin 250 MG TABLET PO SCH (08:54)
[2020-02-19] MEDS: Apixaban 5 MG TABLET PO SCH ×2 (08:54→20:13)
[2020-02-19] MEDS: Insulin DETEMIR 100 UNIT/ML X5UNITS SUBQ SCH ×2 (08:55→23:43)
[2020-02-19] MEDS: Insulin LISPRO 300 UNITS/3 ML VIAL SUBQ SCH ×3 (08:55→17:06)
[2020-02-19] MEDS: Furosemide 40 MG/4 ML VIAL IVP SCH ×3 (09:00→20:13)
[2020-02-19] MEDS: Budesonide Neb 0.5 MG/2 ML IH SCH ×2 (11:07→21:52)
[2020-02-19] MEDS: Silvasorb 44.4 ML TUBE TP SCH (12:32)
[2020-02-19] MEDS ORDERED: *HR* Metoprolol 5 MG/5 ML VIAL IVP ONE (13:39)
[2020-02-19] MEDS ORDERED: Amiodarone Premix 360 MG/200 ML BAG IVC ONE (17:17)
[2020-02-19] MEDS ORDERED: Amiodarone Premix 150 MG/100 ML BAG IVPB ONE (17:17)
[2020-02-19] MEDS: Amiodarone Premix 360 MG/200 ML BAG IVC SCH (23:43)
[2020-02-20] MEDS: Insulin LISPRO 300 UNITS/3 ML VIAL SUBQ SCH ×5 (00:14→19:59)
[2020-02-20] MEDS: Ipratropium/Albuterol Neb 3 ML IH PRN ×4 (00:41→18:24)
[2020-02-20 01:29] LABS: Basophils % 0.2 %; Eosinophils # 0.1 K/mcL (0.0-0.6); Eosinophils % 1.1 %; Hematocrit 33.9 % (37.5-50.1); Immature Granulocytes % 0.3 % (0-4); Lymphocytes # 1.2 K/mcL (0.6-4.6); Lymphocytes % 18.2 %; Mean Corpuscular HGB Conc 29.5 g/dL (31.6-35.5); Mean Corpuscular Hemoglobin 27.2 pg (28.0-33.3); Mean Corpuscular Volume 92.4 fL (83.0-100.0); Mean Platelet Volume 11.5 fL (9.4-12.4); Monocytes # 0.5 K/mcL (0.0-1.3); Monocytes % 7.9 %; Neutrophils # 4.8 K/mcL (1.6-8.9); Platelet Count 162 K/mcL (140-400); Red Blood Count 3.67 M/mcL (4.19-5.50); Red Cell Distribution Width 16.8 % (11.5-14.5); Segmented Neutrophils % 72.3 %; White Blood Count 6.6 K/mcL (4.3-11.1)
[2020-02-20] MEDS: Amiodarone Premix 360 MG/200 ML BAG IVC SCH ×2 (01:32→12:43)
[2020-02-20 01:50] LABS: Alanine Aminotransferase 12 Units/L (7-52); Albumin 3.5 g/dL (3.5-5.7); Albumin/Globulin Ratio 1.2 (1.1-2.2); Alkaline Phosphatase 139 Units/L (34-104); Aspartate Amino Transferase 25 Units/L (13-39); BUN/Creatinine Ratio 31 (6-26); Bilirubin,Total 0.4 mg/dL (0.3-1.0); Blood Urea Nitrogen 37 mg/dL (8-23); Calcium 9.1 mg/dL (8.6-10.3); Carbon Dioxide 31 mEq/L (23-29); Chloride 98 mEq/L (98-107); Globulin 2.9 g/dL (2.4-3.5); Glucose 365 mg/dL (70-105); Osmolality,Calculated 303 (280-300); Potassium 4.3 mEq/L (3.5-5.1); Sodium 135 mEq/L (136-145); Total Protein 6.4 g/dL (6.4-8.9); eGFR For African Americans > 60 (> 60); eGFR For Non-African Americans > 60 (> 60)
[2020-02-20] MEDS: Levalbuterol 1 PUFF INHALER IH SCH ×4 (04:13→22:38)
[2020-02-20] MEDS ORDERED: Insulin LISPRO 300 UNITS/3 ML VIAL SUBQ ONE (07:59)
[2020-02-20] MEDS: Furosemide 40 MG/4 ML VIAL IVP SCH (09:02)
[2020-02-20] MEDS: Apixaban 5 MG TABLET PO SCH ×2 (09:02→19:54)
[2020-02-20] MEDS: Metoprolol XL (24 HR) Succ 50 MG TAB.ER.24H PO SCH ×2 (09:03→19:54)
[2020-02-20] MEDS: Azithromycin 250 MG TABLET PO SCH (09:03)
[2020-02-20] MEDS: Silvasorb 44.4 ML TUBE TP SCH (09:09)
[2020-02-20] MEDS: Budesonide Neb 0.5 MG/2 ML IH SCH ×2 (11:02→22:38)
[2020-02-20] MEDS: Insulin DETEMIR 100 UNIT/ML X5UNITS SUBQ SCH ×2 (11:31→19:55)
[2020-02-20] MEDS: *HR* Digoxin 0.5 MG/2 ML AMPUL IVP SCH ×2 (12:44→18:20)
[2020-02-20] MEDS ORDERED: Furosemide 40 MG/4 ML VIAL IVP SCH (21:00)
[2020-02-21] MEDS: Amiodarone Premix 360 MG/200 ML BAG IVC SCH (00:35)
[2020-02-21] MEDS: Levalbuterol 1 PUFF INHALER IH SCH ×4 (03:16→20:38)
[2020-02-21 05:00] LABS: Basophils % 0.3 %; Eosinophils # 0.1 K/mcL (0.0-0.6); Eosinophils % 0.9 %; Hematocrit 33.1 % (37.5-50.1); Hemoglobin 9.6 g/dL (12.9-16.9); Immature Granulocytes % 0.2 % (0-4); Lymphocytes % 15.2 %; Mean Corpuscular Volume 89.7 fL (83.0-100.0); Monocytes # 0.6 K/mcL (0.0-1.3); Monocytes % 8.6 %; Neutrophils # 4.8 K/mcL (1.6-8.9); Platelet Count 161 K/mcL (140-400); Red Blood Count 3.69 M/mcL (4.19-5.50); Red Cell Distribution Width 16.5 % (11.5-14.5); Segmented Neutrophils % 74.8 %; White Blood Count 6.4 K/mcL (4.3-11.1)
[2020-02-21 05:19] LABS: Albumin 3.5 g/dL (3.5-5.7); Albumin/Globulin Ratio 1.3 (1.1-2.2); Bilirubin,Total 0.4 mg/dL (0.3-1.0); Calcium 9.3 mg/dL (8.6-10.3); Globulin 2.8 g/dL (2.4-3.5); Magnesium 2.1 mg/dL (1.6-2.6); Potassium 4.3 mEq/L (3.5-5.1); Total Protein 6.3 g/dL (6.4-8.9)
[2020-02-21] MEDS: Azithromycin 250 MG TABLET PO SCH (08:18)
[2020-02-21] MEDS: Apixaban 5 MG TABLET PO SCH ×2 (08:18→19:56)
[2020-02-21] MEDS: Insulin DETEMIR 100 UNIT/ML X5UNITS SUBQ SCH ×2 (08:18→22:13)
[2020-02-21] MEDS: Insulin LISPRO 300 UNITS/3 ML VIAL SUBQ SCH ×5 (08:19→20:09)
[2020-02-21] MEDS: Budesonide Neb 0.5 MG/2 ML IH SCH ×2 (08:42→20:39)
[2020-02-21] MEDS: Silvasorb 44.4 ML TUBE TP SCH (08:57)
[2020-02-21] MEDS: Metoprolol XL (24 HR) Succ 50 MG TAB.ER.24H PO SCH ×2 (08:58→19:54)
[2020-02-21] MEDS ORDERED: *HR* Digoxin 0.125 MG TABLET PO SCH (09:00)
[2020-02-21] MEDS: Furosemide 40 MG/4 ML VIAL IVP SCH (09:51)
[2020-02-21] MEDS ORDERED: Albumin 25% 25gram/100mL 25 GM/100 ML IV.SOLN IVPB ONE (09:51)
[2020-02-21] MEDS ORDERED: *HR* Digoxin 0.5 MG/2 ML AMPUL IVP ONE (10:27)
[2020-02-22] MEDS: Ipratropium/Albuterol Neb 3 ML IH PRN ×2 (01:57→15:31)
[2020-02-22] MEDS: Levalbuterol 1 PUFF INHALER IH SCH ×4 (03:26→22:27)
[2020-02-22 06:35] LABS: Basophils % 0.6 %; Eosinophils # 0.1 K/mcL (0.0-0.6); Hematocrit 30.7 % (37.5-50.1); Hemoglobin 9.4 g/dL (12.9-16.9); Immature Granulocytes % 0.3 % (0-4); Lymphocytes # 1.1 K/mcL (0.6-4.6); Lymphocytes % 16.2 %; Mean Corpuscular HGB Conc 30.6 g/dL (31.6-35.5); Mean Corpuscular Hemoglobin 27.2 pg (28.0-33.3); Mean Corpuscular Volume 88.7 fL (83.0-100.0); Mean Platelet Volume 12.1 fL (9.4-12.4); Monocytes # 0.6 K/mcL (0.0-1.3); Monocytes % 8.8 %; Neutrophils # 5.1 K/mcL (1.6-8.9); Platelet Count 159 K/mcL (140-400); Red Blood Count 3.46 M/mcL (4.19-5.50); Red Cell Distribution Width 16.6 % (11.5-14.5); Segmented Neutrophils % 73.1 %; White Blood Count 6.9 K/mcL (4.3-11.1)
[2020-02-22 06:53] LABS: Calcium 9.2 mg/dL (8.6-10.3)
[2020-02-22] MEDS: Insulin LISPRO 300 UNITS/3 ML VIAL SUBQ SCH ×7 (08:07→20:54)
[2020-02-22] MEDS: Furosemide 40 MG/4 ML VIAL IVP SCH (08:12)
[2020-02-22] MEDS: Insulin DETEMIR 100 UNIT/ML X5UNITS SUBQ SCH ×2 (08:12→21:08)
[2020-02-22] MEDS: *HR* Digoxin 0.125 MG TABLET PO SCH (08:13)
[2020-02-22] MEDS: Apixaban 5 MG TABLET PO SCH ×2 (08:13→21:08)
[2020-02-22] MEDS: Metoprolol XL (24 HR) Succ 50 MG TAB.ER.24H PO SCH ×2 (08:13→21:04)
[2020-02-22] MEDS: Silvasorb 44.4 ML TUBE TP SCH (08:13)
[2020-02-22] MEDS: Budesonide Neb 0.5 MG/2 ML IH SCH ×2 (10:26→22:23)
[2020-02-23 03:09] LABS: Basophils % 0.5 %; Eosinophils # 0.1 K/mcL (0.0-0.6); Eosinophils % 1.2 %; Hematocrit 30.6 % (37.5-50.1); Hemoglobin 9.1 g/dL (12.9-16.9); Immature Granulocytes % 0.2 % (0-4); Lymphocytes % 16.7 %; Mean Corpuscular HGB Conc 29.7 g/dL (31.6-35.5); Mean Corpuscular Hemoglobin 26.9 pg (28.0-33.3); Mean Corpuscular Volume 90.5 fL (83.0-100.0); Mean Platelet Volume 12.2 fL (9.4-12.4); Monocytes # 0.6 K/mcL (0.0-1.3); Monocytes % 9.5 %; Neutrophils # 4.2 K/mcL (1.6-8.9); Platelet Count 154 K/mcL (140-400); Red Blood Count 3.38 M/mcL (4.19-5.50); Red Cell Distribution Width 16.7 % (11.5-14.5); Segmented Neutrophils % 71.9 %; White Blood Count 5.8 K/mcL (4.3-11.1)
[2020-02-23 03:30] LABS: BUN/Creatinine Ratio 51 (6-26); Blood Urea Nitrogen 69 mg/dL (8-23); Calcium 9.1 mg/dL (8.6-10.3); Carbon Dioxide 30 mEq/L (23-29); Chloride 99 mEq/L (98-107); Glucose 206 mg/dL (70-105); Osmolality,Calculated 306 (280-300); Potassium 4.4 mEq/L (3.5-5.1); Sodium 135 mEq/L (136-145); eGFR For African Americans > 60 (> 60); eGFR For Non-African Americans 53 (> 60)
[2020-02-23] MEDS: Levalbuterol 1 PUFF INHALER IH SCH ×4 (03:50→21:23)
[2020-02-23 04:05] LABS: ABG Base Excess 4 mEq/L (-2 to 3); ABG HCO3 30 mEq/L (21-27); ABG Oxygen Saturation 68 % (95-98); ABG PCO2 56 mmHg (35-45); ABG PH 7.34 pH Units (7.32-7.45); ABG PO2 39 mmHg (85-104); ABG TCO2 32 mEq/L (20-26)
[2020-02-23 04:17] LABS: ABG Base Excess 4 mEq/L (-2 to 3); ABG HCO3 30 mEq/L (21-27); ABG Oxygen Saturation 95 % (95-98); ABG PCO2 48 mmHg (35-45); ABG PH 7.39 pH Units (7.32-7.45); ABG PO2 75 mmHg (85-104); ABG TCO2 31 mEq/L (20-26)
[2020-02-23] MEDS: Furosemide 40 MG/4 ML VIAL IVP SCH (08:02)
[2020-02-23] MEDS: Insulin LISPRO 300 UNITS/3 ML VIAL SUBQ SCH ×7 (08:02→20:11)
[2020-02-23] MEDS: Apixaban 5 MG TABLET PO SCH ×2 (08:02→20:10)
[2020-02-23] MEDS: *HR* Digoxin 0.125 MG TABLET PO SCH (08:03)
[2020-02-23] MEDS: Insulin DETEMIR 100 UNIT/ML X5UNITS SUBQ SCH ×2 (08:03→20:12)
[2020-02-23] MEDS: Metoprolol XL (24 HR) Succ 50 MG TAB.ER.24H PO SCH ×2 (08:03→20:09)
[2020-02-23] MEDS: Silvasorb 44.4 ML TUBE TP SCH (09:53)
[2020-02-23] MEDS: Budesonide Neb 0.5 MG/2 ML IH SCH ×2 (10:50→21:23)
[2020-02-23] MEDS: Ipratropium/Albuterol Neb 3 ML IH PRN (10:50)
[2020-02-24] MEDS: Ipratropium/Albuterol Neb 3 ML IH PRN ×2 (01:44→06:35)
[2020-02-24] MEDS: Levalbuterol 1 PUFF INHALER IH SCH ×3 (03:40→15:48)
[2020-02-24 06:54] LABS: Hematocrit 31.7 % (37.5-50.1); Hemoglobin 9.2 g/dL (12.9-16.9)
[2020-02-24] MEDS: Metoprolol XL (24 HR) Succ 50 MG TAB.ER.24H PO SCH (07:37)
[2020-02-24] MEDS: Apixaban 5 MG TABLET PO SCH (07:37)
[2020-02-24] MEDS: *HR* Digoxin 0.125 MG TABLET PO SCH (07:38)
[2020-02-24] MEDS: Insulin LISPRO 300 UNITS/3 ML VIAL SUBQ SCH ×6 (07:39→16:22)
[2020-02-24] MEDS: Insulin DETEMIR 100 UNIT/ML X5UNITS SUBQ SCH (07:39)
[2020-02-24 07:42] LABS: BUN/Creatinine Ratio 45 (6-26); Blood Urea Nitrogen 56 mg/dL (8-23); Calcium 9.3 mg/dL (8.6-10.3); Carbon Dioxide 31 mEq/L (23-29); Chloride 101 mEq/L (98-107); Glucose 154 mg/dL (70-105); Osmolality,Calculated 305 (280-300); Potassium 4.7 mEq/L (3.5-5.1); Sodium 138 mEq/L (136-145); eGFR For African Americans > 60 (> 60); eGFR For Non-African Americans 58 (> 60)
[2020-02-24] MEDS: Furosemide 40 MG/4 ML VIAL IVP SCH (08:29)
[2020-02-24] MEDS: Silvasorb 44.4 ML TUBE TP SCH (08:31)
[2020-02-24] MEDS: Budesonide Neb 0.5 MG/2 ML IH SCH (10:59)
[2020-02-24 11:01] VITALS: BP 109/67
== END 2020-02-24 16:54 | disposition home health service (06) | DRG 280 ==
LOC: SUATTDRO → EMEROOARM 20:56 → 2ANU 20:56 → SUATTDRO 23:20 → 2ANU 23:50 → 2NNU 02-19 18:43 → 2ANU 02-23 14:10
PROVIDERS: ADMIT Internal Medicine; ATTEND Internal Medicine

== ENCOUNTER 2020-03-03 22:38 | Inpatient (IN) ==
[2020-03-03] MEDS ORDERED: Ipratropium/Albuterol Neb 3 ML IH ONE (22:46)
[2020-03-03] MEDS ORDERED: methylPREDNISolone 125 MG/2 ML VIAL IVP ONE (22:56)
[2020-03-03 23:50] LABS: Bilirubin,Urine Negative (Negative); Blood,Urine Negative (Negative); Clarity,Urine Clear (Clear); Color,Urine Colorless (Yellow); Glucose,Urine (UA) >=1000 mg/dL (Normal); Ketones,Urine Negative (Negative); Leukocyte Esterase,Urine Negative (Negative); Nitrite,Urine Negative (Negative); Protein,Urine 50 mg/dL (Neg-Trace); RBC,Urine 0-3 per hpf (0-3); Specific Gravity,Urine 1.012 (1.010-1.025); Squamous Epithelial Cell,Urine Few per hpf (None-Few); Urobilinogen,Urine Normal (Normal); WBC,Urine 0-3 per hpf (0-3)
[2020-03-03 23:56] LABS: INR 1.3; Prothrombin Time 15.3 Seconds (9.4-12.1)
[2020-03-03 23:58] LABS: Activated Partial Thrombo Time 28.4 Seconds (26.0-36.0)
[2020-03-04 00:07] LABS: Basophils % 0.2 %; Eosinophils # 0.1 K/mcL (0.0-0.6); Eosinophils % 0.8 %; Hematocrit 31.6 % (37.5-50.1); Hemoglobin 9.3 g/dL (12.9-16.9); Immature Granulocytes % 0.9 % (0-4); Lymphocytes # 0.7 K/mcL (0.6-4.6); Lymphocytes % 10.5 %; Mean Corpuscular HGB Conc 29.4 g/dL (31.6-35.5); Mean Corpuscular Hemoglobin 26.4 pg (28.0-33.3); Mean Corpuscular Volume 89.8 fL (83.0-100.0); Mean Platelet Volume 11.5 fL (9.4-12.4); Monocytes # 0.5 K/mcL (0.0-1.3); Monocytes % 7.3 %; Neutrophils # 5.3 K/mcL (1.6-8.9); Platelet Count 173 K/mcL (140-400); Red Blood Count 3.52 M/mcL (4.19-5.50); Red Cell Distribution Width 16.3 % (11.5-14.5); Segmented Neutrophils % 80.3 %; White Blood Count 6.6 K/mcL (4.3-11.1)
[2020-03-04 00:17] LABS: BUN/Creatinine Ratio 20 (6-26); Blood Urea Nitrogen 20 mg/dL (8-23); Calcium 8.5 mg/dL (8.6-10.3); Carbon Dioxide 28 mEq/L (23-29); Chloride 97 mEq/L (98-107); Glucose 375 mg/dL (70-105); Osmolality,Calculated 294 (280-300); Potassium 3.7 mEq/L (3.5-5.1); Sodium 133 mEq/L (136-145); Troponin I 0.11 ng/mL (< 0.04); eGFR For African Americans > 60 (> 60); eGFR For Non-African Americans > 60 (> 60)
[2020-03-04] MEDS ORDERED: Acetaminophen 325 MG TABLET PO PRN (01:36)
[2020-03-04] MEDS ORDERED: Ondansetron 4 MG/2 ML VIAL IVP PRN (01:36)
[2020-03-04] MEDS ORDERED: Dextrose Gel 15 GM/37.5 ML TUBE PO PRN ×4 (01:39→16:40)
[2020-03-04] MEDS ORDERED: *HR* Dextrose 50 % in Water (Vial) 50 ML VIAL IVP PRN ×2 (01:39→16:40)
[2020-03-04] MEDS ORDERED: Budesonide Neb 0.5 MG/2 ML IH PRN (01:39)
[2020-03-04] MEDS ORDERED: D5% in Water 1,000 ML IVC PRN ×2 (01:39→16:40)
[2020-03-04 03:01] LABS: BUN/Creatinine Ratio 20 (6-26); Blood Urea Nitrogen 21 mg/dL (8-23); Calcium 8.9 mg/dL (8.6-10.3); Carbon Dioxide 30 mEq/L (23-29); Chloride 96 mEq/L (98-107); Digoxin 0.3 ng/mL (0.8-2.0); Glucose 550 mg/dL (70-105); Magnesium 1.5 mg/dL (1.6-2.6); Osmolality,Calculated 306 (280-300); Potassium 3.9 mEq/L (3.5-5.1); Sodium 134 mEq/L (136-145); eGFR For African Americans > 60 (> 60); eGFR For Non-African Americans > 60 (> 60)
[2020-03-04] MEDS ORDERED: Insulin DETEMIR 100 UNIT/ML X5UNITS SUBQ ONE (03:12)
[2020-03-04] MEDS ORDERED: Insulin LISPRO 300 UNITS/3 ML VIAL SUBQ SCH ×3 (03:15→21:00)
[2020-03-04] MEDS: Levalbuterol 1 PUFF INHALER IH SCH ×4 (04:10→22:33)
[2020-03-04] MEDS: Insulin LISPRO 300 UNITS/3 ML VIAL SUBQ SCH ×4 (07:02→21:07)
[2020-03-04] MEDS: Apixaban 5 MG TABLET PO SCH ×2 (08:23→21:07)
[2020-03-04] MEDS: Metoprolol XL (24 HR) Succ 50 MG TAB.ER.24H PO SCH (08:23)
[2020-03-04] MEDS: Insulin DETEMIR 100 UNIT/ML X5UNITS SUBQ SCH ×2 (08:23→22:38)
[2020-03-04] MEDS: *HR* Digoxin 0.125 MG TABLET PO SCH (08:23)
[2020-03-04] MEDS: Aspirin 81 MG TAB.CHEW PO SCH (08:23)
[2020-03-04] MEDS ORDERED: Azithromycin 250 MG TABLET PO SCH (09:00)
[2020-03-04] MEDS ORDERED: predniSONE 20 MG TABLET PO SCH (09:00)
[2020-03-04] MEDS ORDERED: Insulin LISPRO 300 UNITS/3 ML VIAL SUBQ ONE (10:31)
[2020-03-04] MEDS: Silvasorb 44.4 ML TUBE TP SCH (12:17)
[2020-03-04] MEDS ORDERED: Furosemide 40 MG/4 ML VIAL IVP ONE (13:19)
[2020-03-04] MEDS: Furosemide 40 MG/4 ML VIAL IVP SCH (17:25)
[2020-03-04] MEDS ORDERED: Insulin Human Regular 10 UNIT in 0.9 % Sodium Chloride 10 ML IV ONE (20:21)
[2020-03-05] MEDS: Levalbuterol 1 PUFF INHALER IH SCH ×4 (04:32→22:23)
[2020-03-05 04:33] LABS: Hemoglobin 9.3 g/dL (12.9-16.9); Immature Granulocytes % 0.3 % (0-4); Lymphocytes # 0.6 K/mcL (0.6-4.6); Lymphocytes % 6.1 %; Mean Corpuscular HGB Conc 29.1 g/dL (31.6-35.5); Mean Corpuscular Hemoglobin 25.7 pg (28.0-33.3); Mean Corpuscular Volume 88.4 fL (83.0-100.0); Mean Platelet Volume 11.8 fL (9.4-12.4); Monocytes # 0.8 K/mcL (0.0-1.3); Monocytes % 7.7 %; Platelet Count 187 K/mcL (140-400); Red Blood Count 3.62 M/mcL (4.19-5.50); Red Cell Distribution Width 16.5 % (11.5-14.5); Segmented Neutrophils % 85.9 %
[2020-03-05] MEDS: Ipratropium/Albuterol Neb 3 ML IH PRN ×3 (04:33→19:55)
[2020-03-05 04:44] LABS: White Blood Count 10.5 K/mcL (4.3-11.1)
[2020-03-05 04:47] LABS: % Iron Saturation 6 % (20-55); BUN/Creatinine Ratio 30 (6-26); Blood Urea Nitrogen 35 mg/dL (8-23); Calcium 8.8 mg/dL (8.6-10.3); Carbon Dioxide 28 mEq/L (23-29); Chloride 97 mEq/L (98-107); Glucose 383 mg/dL (70-105); Iron 22 mcg/dL (65-175); Magnesium 1.9 mg/dL (1.6-2.6); Osmolality,Calculated 296 (280-300); Potassium 4.3 mEq/L (3.5-5.1); Sodium 131 mEq/L (136-145); Transferrin 282 mg/dL (203-362); eGFR For African Americans > 60 (> 60); eGFR For Non-African Americans > 60 (> 60)
[2020-03-05 05:06] LABS: Ferritin 88 ng/mL (20-250)
[2020-03-05 05:27] LABS: Estimated Average Glucose 338 mg/dl; Hemoglobin A1C 13.4 %
[2020-03-05] MEDS ORDERED: Insulin LISPRO 300 UNITS/3 ML VIAL SUBQ SCH (07:30)
[2020-03-05] MEDS: *HR* Digoxin 0.125 MG TABLET PO SCH (08:10)
[2020-03-05] MEDS: Insulin LISPRO 300 UNITS/3 ML VIAL SUBQ SCH ×4 (08:10→20:15)
[2020-03-05] MEDS: Metoprolol XL (24 HR) Succ 50 MG TAB.ER.24H PO SCH (08:10)
[2020-03-05] MEDS: BuPROPion SR (12 HR) 150 MG TABLET PO SCH (08:10)
[2020-03-05] MEDS: Aspirin 81 MG TAB.CHEW PO SCH (08:11)
[2020-03-05] MEDS: GuaiFENesin Liq 200 MG/10 ML UDC PO SCH (08:11)
[2020-03-05] MEDS: Silvasorb 44.4 ML TUBE TP SCH (08:11)
[2020-03-05] MEDS: Apixaban 5 MG TABLET PO SCH ×2 (08:11→20:15)
[2020-03-05] MEDS: Insulin DETEMIR 100 UNIT/ML X5UNITS SUBQ SCH ×3 (08:11→20:15)
[2020-03-05] MEDS: predniSONE 20 MG TABLET PO SCH (08:11)
[2020-03-05] MEDS ORDERED: Albumin 25% 25gram/100mL 25 GM/100 ML IV.SOLN IVPB ONE (11:33)
[2020-03-05 14:20] LABS: Troponin I 0.09 ng/mL (< 0.04)
[2020-03-05] MEDS ORDERED: Insulin Human Regular 10 UNIT in 0.9 % Sodium Chloride 10 ML IV ONE (21:26)
[2020-03-05] MEDS: Furosemide 40 MG/4 ML VIAL IVP SCH ×2 (22:20→22:30)
[2020-03-06 02:18] LABS: BUN/Creatinine Ratio 38 (6-26); Blood Urea Nitrogen 47 mg/dL (8-23); Calcium 8.8 mg/dL (8.6-10.3); Carbon Dioxide 28 mEq/L (23-29); Chloride 97 mEq/L (98-107); Glucose 274 mg/dL (70-105); Osmolality,Calculated 300 (280-300); Potassium 3.8 mEq/L (3.5-5.1); Sodium 134 mEq/L (136-145); eGFR For African Americans > 60 (> 60); eGFR For Non-African Americans 58 (> 60)
[2020-03-06] MEDS: Ipratropium/Albuterol Neb 3 ML IH PRN ×3 (04:08→21:48)
[2020-03-06] MEDS: Insulin LISPRO 300 UNITS/3 ML VIAL SUBQ SCH ×4 (07:20→20:15)
[2020-03-06] MEDS: Insulin DETEMIR 100 UNIT/ML X5UNITS SUBQ SCH ×2 (07:20→20:14)
[2020-03-06] MEDS: predniSONE 20 MG TABLET PO SCH (07:21)
[2020-03-06] MEDS: BuPROPion SR (12 HR) 150 MG TABLET PO SCH (07:21)
[2020-03-06] MEDS: Metoprolol XL (24 HR) Succ 50 MG TAB.ER.24H PO SCH (07:21)
[2020-03-06] MEDS: Apixaban 5 MG TABLET PO SCH ×2 (07:21→20:14)
[2020-03-06] MEDS: *HR* Digoxin 0.125 MG TABLET PO SCH (07:21)
[2020-03-06] MEDS: GuaiFENesin Liq 200 MG/10 ML UDC PO SCH (07:21)
[2020-03-06] MEDS: Aspirin 81 MG TAB.CHEW PO SCH (07:21)
[2020-03-06] MEDS: Silvasorb 44.4 ML TUBE TP SCH (07:34)
[2020-03-06] MEDS: Levalbuterol 1 PUFF INHALER IH SCH ×5 (09:38→21:48)
[2020-03-06] MEDS ORDERED: Furosemide 40 MG/4 ML VIAL IVP ONE (12:19)
[2020-03-06] MEDS ORDERED: Albumin 25% 25gram/100mL 25 GM/100 ML IV.SOLN IVPB ONE (12:19)
[2020-03-07 02:44] LABS: Basophils % 0.1 %; Immature Granulocytes % 0.3 % (0-4)
[2020-03-07 02:45] LABS: Eosinophils # 0.1 K/mcL (0.0-0.6); Eosinophils % 0.5 %; Hematocrit 33.7 % (37.5-50.1); Hemoglobin 9.6 g/dL (12.9-16.9); Lymphocytes # 1.1 K/mcL (0.6-4.6); Lymphocytes % 10.3 %; Mean Corpuscular HGB Conc 28.5 g/dL (31.6-35.5); Mean Corpuscular Hemoglobin 25.6 pg (28.0-33.3); Mean Corpuscular Volume 89.9 fL (83.0-100.0); Mean Platelet Volume 12.4 fL (9.4-12.4); Monocytes # 0.9 K/mcL (0.0-1.3); Monocytes % 8.6 %; Neutrophils # 8.3 K/mcL (1.6-8.9); Platelet Count 186 K/mcL (140-400); Red Blood Count 3.75 M/mcL (4.19-5.50); Red Cell Distribution Width 16.8 % (11.5-14.5); Segmented Neutrophils % 80.2 %; White Blood Count 10.3 K/mcL (4.3-11.1)
[2020-03-07 03:02] LABS: BUN/Creatinine Ratio 40 (6-26); Blood Urea Nitrogen 51 mg/dL (8-23); Calcium 8.9 mg/dL (8.6-10.3); Carbon Dioxide 27 mEq/L (23-29); Chloride 99 mEq/L (98-107); Glucose 334 mg/dL (70-105); Osmolality,Calculated 305 (280-300); Potassium 4.6 mEq/L (3.5-5.1); Sodium 134 mEq/L (136-145); eGFR For African Americans > 60 (> 60); eGFR For Non-African Americans 57 (> 60)
[2020-03-07 03:13] LABS: Platelet Estimate Normal (Normal); Toxic Granulation Present (Not Present)
[2020-03-07] MEDS: Ipratropium/Albuterol Neb 3 ML IH PRN ×4 (03:44→22:08)
[2020-03-07] MEDS: Levalbuterol 1 PUFF INHALER IH SCH ×4 (03:44→22:08)
[2020-03-07] MEDS: predniSONE 20 MG TABLET PO SCH (07:32)
[2020-03-07] MEDS: Apixaban 5 MG TABLET PO SCH ×2 (07:32→21:17)
[2020-03-07] MEDS: Aspirin 81 MG TAB.CHEW PO SCH (07:32)
[2020-03-07] MEDS: Metoprolol XL (24 HR) Succ 50 MG TAB.ER.24H PO SCH (07:32)
[2020-03-07] MEDS: *HR* Digoxin 0.125 MG TABLET PO SCH (07:32)
[2020-03-07] MEDS: Silvasorb 44.4 ML TUBE TP SCH (07:32)
[2020-03-07] MEDS: Insulin LISPRO 300 UNITS/3 ML VIAL SUBQ SCH ×4 (07:32→21:17)
[2020-03-07] MEDS: BuPROPion SR (12 HR) 150 MG TABLET PO SCH (07:32)
[2020-03-07] MEDS: GuaiFENesin Liq 200 MG/10 ML UDC PO SCH (07:32)
[2020-03-07] MEDS: Insulin DETEMIR 100 UNIT/ML X5UNITS SUBQ SCH ×2 (07:32→21:17)
[2020-03-07] MEDS ORDERED: Albumin 25% 25gram/100mL 25 GM/100 ML IV.SOLN IVPB ONE ×2 (10:23→11:00)
[2020-03-07] MEDS ORDERED: Furosemide 40 MG/4 ML VIAL IVP SCH (10:30)
[2020-03-07] MEDS ORDERED: Furosemide 40 MG/4 ML VIAL IVP ONE (11:30)
[2020-03-07] MEDS: Albumin 25% 25gram/100mL 25 GM/100 ML IV.SOLN IVPB SCH (16:45)
[2020-03-07] MEDS: Furosemide 40 MG/4 ML VIAL IVP SCH (17:34)
[2020-03-08 02:58] LABS: BUN/Creatinine Ratio 42 (6-26); Blood Urea Nitrogen 52 mg/dL (8-23); Calcium 9.6 mg/dL (8.6-10.3); Carbon Dioxide 29 mEq/L (23-29); Chloride 101 mEq/L (98-107); Glucose 176 mg/dL (70-105); Osmolality,Calculated 306 (280-300); Potassium 4.5 mEq/L (3.5-5.1); Sodium 139 mEq/L (136-145); eGFR For African Americans > 60 (> 60); eGFR For Non-African Americans 58 (> 60)
[2020-03-08] MEDS: Levalbuterol 1 PUFF INHALER IH SCH ×4 (03:25→22:29)
[2020-03-08] MEDS: Ipratropium/Albuterol Neb 3 ML IH PRN ×3 (03:25→22:31)
[2020-03-08] MEDS: Insulin LISPRO 300 UNITS/3 ML VIAL SUBQ SCH ×4 (07:01→22:02)
[2020-03-08] MEDS: Aspirin 81 MG TAB.CHEW PO SCH (08:35)
[2020-03-08] MEDS: BuPROPion SR (12 HR) 150 MG TABLET PO SCH (08:35)
[2020-03-08] MEDS: Apixaban 5 MG TABLET PO SCH ×2 (08:35→22:01)
[2020-03-08] MEDS: Metoprolol XL (24 HR) Succ 50 MG TAB.ER.24H PO SCH (08:35)
[2020-03-08] MEDS: *HR* Digoxin 0.125 MG TABLET PO SCH (08:35)
[2020-03-08] MEDS: GuaiFENesin Liq 200 MG/10 ML UDC PO SCH (08:35)
[2020-03-08] MEDS: Albumin 25% 25gram/100mL 25 GM/100 ML IV.SOLN IVPB SCH ×2 (08:36→17:33)
[2020-03-08] MEDS: Silvasorb 44.4 ML TUBE TP SCH (08:36)
[2020-03-08] MEDS: Insulin DETEMIR 100 UNIT/ML X5UNITS SUBQ SCH ×2 (09:22→22:35)
[2020-03-08] MEDS: Furosemide 40 MG/4 ML VIAL IVP SCH (10:48)
[2020-03-08] MEDS ORDERED: Iron Sucrose Complex 400 MG in 0.9 % Sodium Chloride 250 ML IVPB ONE (13:09)
[2020-03-08] MEDS: lisinopriL 5 MG TABLET PO SCH (13:47)
[2020-03-08] MEDS: Furosemide 20 MG/2 ML VIAL IVP SCH (17:32)
[2020-03-08] MEDS: Spironolactone 12.5 MG TABLET PO SCH (17:33)
[2020-03-08] MEDS ORDERED: Insulin DETEMIR 100 UNIT/ML X5UNITS SUBQ SCH (21:00)
[2020-03-09] MEDS: Ipratropium/Albuterol Neb 3 ML IH PRN ×3 (04:39→16:01)
[2020-03-09] MEDS: Levalbuterol 1 PUFF INHALER IH SCH ×3 (04:40→16:02)
[2020-03-09] MEDS: Albumin 25% 25gram/100mL 25 GM/100 ML IV.SOLN IVPB SCH (05:14)
[2020-03-09] MEDS: Furosemide 20 MG/2 ML VIAL IVP SCH (05:14)
[2020-03-09 08:06] LABS: Basophils % 0.3 %; Eosinophils # 0.1 K/mcL (0.0-0.6); Eosinophils % 1.1 %; Hematocrit 32.4 % (37.5-50.1); Hemoglobin 9.5 g/dL (12.9-16.9); Immature Granulocytes % 0.3 % (0-4); Lymphocytes % 12.1 %; Mean Corpuscular HGB Conc 29.3 g/dL (31.6-35.5); Mean Corpuscular Hemoglobin 25.9 pg (28.0-33.3); Mean Corpuscular Volume 88.3 fL (83.0-100.0); Mean Platelet Volume 12.8 fL (9.4-12.4); Monocytes # 0.8 K/mcL (0.0-1.3); Monocytes % 10.3 %; Neutrophils # 5.9 K/mcL (1.6-8.9); Platelet Count 162 K/mcL (140-400); Red Blood Count 3.67 M/mcL (4.19-5.50); Segmented Neutrophils % 75.9 %; White Blood Count 7.8 K/mcL (4.3-11.1)
[2020-03-09 08:21] LABS: ABG Base Excess 5 mEq/L (-2 to 3); ABG HCO3 31 mEq/L (21-27); ABG Oxygen Saturation 95 % (95-98); ABG PCO2 52 mmHg (35-45); ABG PH 7.39 pH Units (7.32-7.45); ABG PO2 79 mmHg (85-104); ABG TCO2 33 mEq/L (20-26)
[2020-03-09 08:28] LABS: Alanine Aminotransferase 41 Units/L (7-52); Albumin 4.3 g/dL (3.5-5.7); Alkaline Phosphatase 173 Units/L (34-104); Aspartate Amino Transferase 49 Units/L (13-39); BUN/Creatinine Ratio 48 (6-26); Bilirubin,Total 0.6 mg/dL (0.3-1.0); Blood Urea Nitrogen 59 mg/dL (8-23); Calcium 9.6 mg/dL (8.6-10.3); Carbon Dioxide 31 mEq/L (23-29); Chloride 102 mEq/L (98-107); Globulin 2.2 g/dL (2.4-3.5); Glucose 130 mg/dL (70-105); Osmolality,Calculated 308 (280-300); Phosphorous 3.9 mg/dL (2.7-4.5); Potassium 4.6 mEq/L (3.5-5.1); Sodium 140 mEq/L (136-145); Total Protein 6.5 g/dL (6.4-8.9); eGFR For African Americans > 60 (> 60); eGFR For Non-African Americans 59 (> 60)
[2020-03-09 08:50] LABS: Folate 8.3 ng/mL (3.0-16.0)
[2020-03-09] MEDS: BuPROPion SR (12 HR) 150 MG TABLET PO SCH (09:09)
[2020-03-09] MEDS: GuaiFENesin Liq 200 MG/10 ML UDC PO SCH (09:09)
[2020-03-09] MEDS: *HR* Digoxin 0.125 MG TABLET PO SCH (09:10)
[2020-03-09] MEDS: lisinopriL 5 MG TABLET PO SCH (09:10)
[2020-03-09] MEDS: Spironolactone 12.5 MG TABLET PO SCH (09:10)
[2020-03-09] MEDS: Aspirin 81 MG TAB.CHEW PO SCH (09:10)
[2020-03-09] MEDS: Metoprolol XL (24 HR) Succ 50 MG TAB.ER.24H PO SCH (09:10)
[2020-03-09] MEDS: Apixaban 5 MG TABLET PO SCH ×2 (09:10→19:58)
[2020-03-09] MEDS: Insulin DETEMIR 100 UNIT/ML X5UNITS SUBQ SCH ×2 (09:15→19:59)
[2020-03-09] MEDS: Insulin LISPRO 300 UNITS/3 ML VIAL SUBQ SCH ×5 (09:24→19:59)
[2020-03-09] MEDS: Silvasorb 44.4 ML TUBE TP SCH (09:25)
[2020-03-09] MEDS: Ipratropium/Albuterol Neb 3 ML IH SCH ×2 (19:17→20:17)
[2020-03-09] MEDS: Budesonide/Formoterol 160/4.5 1 PUFF INH IH SCH (20:17)
[2020-03-10 02:50] LABS: Red Cell Distribution Width 17.2 % (11.5-14.5)
[2020-03-10 02:51] LABS: Basophils % 0.2 %; Eosinophils # 0.1 K/mcL (0.0-0.6); Eosinophils % 0.8 %; Hematocrit 32.9 % (37.5-50.1); Hemoglobin 9.7 g/dL (12.9-16.9); Immature Granulocytes % 0.2 % (0-4); Lymphocytes % 11.7 %; Mean Corpuscular HGB Conc 29.5 g/dL (31.6-35.5); Mean Corpuscular Hemoglobin 26.5 pg (28.0-33.3); Mean Corpuscular Volume 89.9 fL (83.0-100.0); Mean Platelet Volume 12.5 fL (9.4-12.4); Monocytes # 0.8 K/mcL (0.0-1.3); Platelet Count 163 K/mcL (140-400); Red Blood Count 3.66 M/mcL (4.19-5.50); Segmented Neutrophils % 78.1 %; White Blood Count 8.8 K/mcL (4.3-11.1)
[2020-03-10 02:57] LABS: Neutrophils # 6.9 K/mcL (1.6-8.9)
[2020-03-10 03:10] LABS: Alanine Aminotransferase 38 Units/L (7-52); Albumin 4.4 g/dL (3.5-5.7); Albumin/Globulin Ratio 1.8 (1.1-2.2); Alkaline Phosphatase 170 Units/L (34-104); Aspartate Amino Transferase 32 Units/L (13-39); BUN/Creatinine Ratio 52 (6-26); Bilirubin,Total 0.6 mg/dL (0.3-1.0); Blood Urea Nitrogen 65 mg/dL (8-23); Calcium 9.6 mg/dL (8.6-10.3); Carbon Dioxide 29 mEq/L (23-29); Chloride 101 mEq/L (98-107); Globulin 2.5 g/dL (2.4-3.5); Glucose 74 mg/dL (70-105); Magnesium 1.9 mg/dL (1.6-2.6); Osmolality,Calculated 305 (280-300); Phosphorous 4.3 mg/dL (2.7-4.5); Potassium 4.4 mEq/L (3.5-5.1); Sodium 139 mEq/L (136-145); Total Protein 6.9 g/dL (6.4-8.9); eGFR For African Americans > 60 (> 60); eGFR For Non-African Americans 58 (> 60)
[2020-03-10] MEDS: Ipratropium/Albuterol Neb 3 ML IH SCH ×2 (03:34→10:42)
[2020-03-10] MEDS: Insulin LISPRO 300 UNITS/3 ML VIAL SUBQ SCH ×4 (08:51→12:13)
[2020-03-10] MEDS: GuaiFENesin Liq 200 MG/10 ML UDC PO SCH (08:53)
[2020-03-10] MEDS: lisinopriL 5 MG TABLET PO SCH (08:54)
[2020-03-10] MEDS: Aspirin 81 MG TAB.CHEW PO SCH (08:54)
[2020-03-10] MEDS: BuPROPion SR (12 HR) 150 MG TABLET PO SCH (08:54)
[2020-03-10] MEDS: *HR* Digoxin 0.125 MG TABLET PO SCH (08:55)
[2020-03-10] MEDS: Apixaban 5 MG TABLET PO SCH (08:55)
[2020-03-10] MEDS: Spironolactone 12.5 MG TABLET PO SCH (08:55)
[2020-03-10] MEDS: Insulin DETEMIR 100 UNIT/ML X5UNITS SUBQ SCH (08:56)
[2020-03-10] MEDS ORDERED: Furosemide 40 MG TABLET PO SCH (09:00)
[2020-03-10] MEDS ORDERED: Metoprolol XL (24 HR) Succ 25 MG TAB.ER.24H PO SCH (09:00)
[2020-03-10] MEDS: Silvasorb 44.4 ML TUBE TP SCH (09:04)
[2020-03-10] MEDS: Budesonide/Formoterol 160/4.5 1 PUFF INH IH SCH (10:42)
[2020-03-10 11:24] VITALS: BP 107/59
== END 2020-03-10 13:58 | disposition home health service (06) ==
LOC: EMEROOARM 22:38 → 2ANU 22:38 → SUATTDRO 03-04 02:19 → 2ANU 03-04 02:56 → SUATTDRO 03-05 19:06
PROVIDERS: ADMIT Internal Medicine; ATTEND Internal Medicine

== ENCOUNTER 2020-03-12 12:21 | Observation (INO) ==
[2020-03-12] MEDS ORDERED: Furosemide 40 MG/4 ML VIAL IVP ONE (12:41)
[2020-03-12] MEDS ORDERED: Nitroglycerin 0.4 MG TAB.SUBL SL STA (12:41)
[2020-03-12 13:23] LABS: Basophils % 0.1 %; Eosinophils # 0.1 K/mcL (0.0-0.6); Eosinophils % 0.7 %; Hematocrit 30.2 % (37.5-50.1); Hemoglobin 8.9 g/dL (12.9-16.9); Immature Granulocytes % 0.4 % (0-4); Lymphocytes # 0.7 K/mcL (0.6-4.6); Lymphocytes % 9.6 %; Mean Corpuscular HGB Conc 29.5 g/dL (31.6-35.5); Mean Corpuscular Hemoglobin 25.4 pg (28.0-33.3); Mean Corpuscular Volume 86.3 fL (83.0-100.0); Mean Platelet Volume 12.1 fL (9.4-12.4); Monocytes # 0.8 K/mcL (0.0-1.3); Monocytes % 11.1 %; Neutrophils # 5.7 K/mcL (1.6-8.9); Platelet Count 138 K/mcL (140-400); Red Cell Distribution Width 17.7 % (11.5-14.5); Segmented Neutrophils % 78.1 %; White Blood Count 7.3 K/mcL (4.3-11.1)
[2020-03-12 13:31] LABS: BUN/Creatinine Ratio 47 (6-26); Blood Urea Nitrogen 45 mg/dL (8-23); Calcium 6.5 mg/dL (8.6-10.3); Carbon Dioxide 20 mEq/L (23-29); Chloride 110 mEq/L (98-107); Glucose 331 mg/dL (70-105); Osmolality,Calculated 310 (280-300); Potassium 3.1 mEq/L (3.5-5.1); Sodium 138 mEq/L (136-145); eGFR For African Americans > 60 (> 60); eGFR For Non-African Americans > 60 (> 60)
[2020-03-12 13:36] LABS: Troponin I 0.07 ng/mL (< 0.04)
[2020-03-12] MEDS: Potassium Chloride Elixir 20 MEQ/15 ML UDC PO ONE ×2 (14:24→14:29)
[2020-03-12] MEDS ORDERED: Nitroglycerin 0.4 MG TAB.SUBL SL PRN (14:57)
[2020-03-12] MEDS ORDERED: Budesonide Neb 0.5 MG/2 ML IH PRN (14:57)
[2020-03-12] MEDS ORDERED: *HR* Dextrose 50 % in Water (Vial) 50 ML VIAL IVP PRN (14:57)
[2020-03-12] MEDS ORDERED: D5% in Water 1,000 ML IVC PRN (14:57)
[2020-03-12] MEDS ORDERED: Dextrose Gel 15 GM/37.5 ML TUBE PO PRN ×2 (14:57)
[2020-03-12] MEDS ORDERED: Calcium Gluconate 1gm/50mL 1 GM/50 ML BAG IVPB ONE (15:33)
[2020-03-12 16:01] LABS: VBG HCO3 32 mEq/L (21-27); VBG Ionized Calcium 1.15 mmol/L (1.15-1.35); VBG PCO2 59 mmHg (41-51); VBG PH 7.34 pH Units (7.32-7.42); VBG PO2 115 mmHg (25-50)
[2020-03-12] MEDS: Insulin LISPRO 300 UNITS/3 ML VIAL SUBQ SCH ×2 (16:50→23:12)
[2020-03-12] MEDS ORDERED: Furosemide 40 MG/4 ML VIAL IVP SCH (17:00)
[2020-03-12] MEDS: Furosemide 240 MG in 0.9 % Sodium Chloride 96 ML IVC SCH (17:20)
[2020-03-12] MEDS: Apixaban 5 MG TABLET PO SCH (23:09)
[2020-03-12] MEDS: Insulin DETEMIR 100 UNIT/ML X5UNITS SUBQ SCH (23:09)
[2020-03-13 06:06] LABS: BUN/Creatinine Ratio 41 (6-26); Blood Urea Nitrogen 44 mg/dL (8-23); Calcium 9.5 mg/dL (8.6-10.3); Carbon Dioxide 33 mEq/L (23-29); Chloride 98 mEq/L (98-107); Glucose 140 mg/dL (70-105); Magnesium 1.8 mg/dL (1.6-2.6); Osmolality,Calculated 301 (280-300); Potassium 3.9 mEq/L (3.5-5.1); Sodium 139 mEq/L (136-145); eGFR For African Americans > 60 (> 60); eGFR For Non-African Americans > 60 (> 60)
[2020-03-13] MEDS: Insulin LISPRO 300 UNITS/3 ML VIAL SUBQ SCH ×4 (07:44→23:45)
[2020-03-13 08:41] LABS: Magnesium 1.3 mg/dL (1.6-2.6)
[2020-03-13] MEDS: Aspirin 81 MG TAB.CHEW PO SCH (09:03)
[2020-03-13] MEDS: lisinopriL 5 MG TABLET PO SCH (09:03)
[2020-03-13] MEDS: *HR* Digoxin 0.125 MG TABLET PO SCH (09:03)
[2020-03-13] MEDS: Insulin DETEMIR 100 UNIT/ML X5UNITS SUBQ SCH ×2 (09:03→23:24)
[2020-03-13] MEDS: Apixaban 5 MG TABLET PO SCH ×2 (09:03→23:24)
[2020-03-13] MEDS: Spironolactone 12.5 MG TABLET PO SCH (09:07)
[2020-03-13] MEDS: Ipratropium/Albuterol Neb 3 ML IH PRN (10:58)
[2020-03-13] MEDS: Metoprolol XL (24 HR) Succ 25 MG TAB.ER.24H PO SCH (12:00)
[2020-03-13] MEDS: Acetaminophen 325 MG TABLET PO PRN (23:24)
[2020-03-14 00:56] LABS: Basophils % 0.2 %; Eosinophils % 0.5 %; Hematocrit 31.2 % (37.5-50.1); Hemoglobin 9.3 g/dL (12.9-16.9); Immature Granulocytes % 0.2 % (0-4); Lymphocytes # 0.6 K/mcL (0.6-4.6); Lymphocytes % 9.9 %; Mean Corpuscular HGB Conc 29.8 g/dL (31.6-35.5); Mean Corpuscular Hemoglobin 25.8 pg (28.0-33.3); Mean Corpuscular Volume 86.4 fL (83.0-100.0); Mean Platelet Volume 12.1 fL (9.4-12.4); Monocytes # 0.8 K/mcL (0.0-1.3); Monocytes % 12.9 %; Neutrophils # 4.5 K/mcL (1.6-8.9); Platelet Count 131 K/mcL (140-400); Red Blood Count 3.61 M/mcL (4.19-5.50); Red Cell Distribution Width 17.6 % (11.5-14.5); Segmented Neutrophils % 76.3 %
[2020-03-14 01:18] LABS: BUN/Creatinine Ratio 37 (6-26); Blood Urea Nitrogen 38 mg/dL (8-23); Calcium 9.2 mg/dL (8.6-10.3); Carbon Dioxide 34 mEq/L (23-29); Chloride 97 mEq/L (98-107); Glucose 310 mg/dL (70-105); Osmolality,Calculated 305 (280-300); Sodium 137 mEq/L (136-145); eGFR For African Americans > 60 (> 60); eGFR For Non-African Americans > 60 (> 60)
[2020-03-14 01:19] LABS: Magnesium 1.7 mg/dL (1.6-2.6); Phosphorous 3.1 mg/dL (2.7-4.5)
[2020-03-14] MEDS: Ipratropium/Albuterol Neb 3 ML IH PRN ×3 (05:41→18:43)
[2020-03-14] MEDS ORDERED: Furosemide 40 MG/4 ML VIAL IVP SCH (06:00)
[2020-03-14] MEDS: Insulin LISPRO 300 UNITS/3 ML VIAL SUBQ SCH ×3 (07:52→20:16)
[2020-03-14] MEDS: Aspirin 81 MG TAB.CHEW PO SCH (07:55)
[2020-03-14] MEDS: Spironolactone 12.5 MG TABLET PO SCH (07:55)
[2020-03-14] MEDS: Apixaban 5 MG TABLET PO SCH ×2 (07:55→20:16)
[2020-03-14] MEDS: *HR* Digoxin 0.125 MG TABLET PO SCH (07:55)
[2020-03-14] MEDS: lisinopriL 5 MG TABLET PO SCH (07:55)
[2020-03-14] MEDS: Metoprolol XL (24 HR) Succ 25 MG TAB.ER.24H PO SCH (07:56)
[2020-03-14] MEDS: Insulin DETEMIR 100 UNIT/ML X5UNITS SUBQ SCH ×2 (07:58→20:16)
[2020-03-14] MEDS: Furosemide 240 MG in 0.9 % Sodium Chloride 96 ML IVC SCH (09:51)
[2020-03-14] MEDS: BuPROPion SR (12 HR) 150 MG TABLET PO SCH (17:03)
[2020-03-14] MEDS: Ondansetron 4 MG/2 ML VIAL IVP PRN (22:02)
[2020-03-15 03:40] LABS: BUN/Creatinine Ratio 29 (6-26); Blood Urea Nitrogen 38 mg/dL (8-23); Calcium 8.9 mg/dL (8.6-10.3); Carbon Dioxide 36 mEq/L (23-29); Chloride 94 mEq/L (98-107); Glucose 210 mg/dL (70-105); Magnesium 1.8 mg/dL (1.6-2.6); Osmolality,Calculated 295 (280-300); Phosphorous 3.5 mg/dL (2.7-4.5); Potassium 3.9 mEq/L (3.5-5.1); Sodium 135 mEq/L (136-145); eGFR For African Americans > 60 (> 60); eGFR For Non-African Americans 56 (> 60)
[2020-03-15] MEDS: Acetaminophen 325 MG TABLET PO PRN (04:32)
[2020-03-15] MEDS: Insulin LISPRO 300 UNITS/3 ML VIAL SUBQ SCH ×5 (07:34→21:05)
[2020-03-15] MEDS: Furosemide 240 MG in 0.9 % Sodium Chloride 96 ML IVC SCH ×2 (07:34→08:56)
[2020-03-15] MEDS: Metoprolol XL (24 HR) Succ 25 MG TAB.ER.24H PO SCH (08:49)
[2020-03-15] MEDS: Spironolactone 12.5 MG TABLET PO SCH (08:49)
[2020-03-15] MEDS: Aspirin 81 MG TAB.CHEW PO SCH (08:49)
[2020-03-15] MEDS: BuPROPion SR (12 HR) 150 MG TABLET PO SCH (08:49)
[2020-03-15] MEDS: Apixaban 5 MG TABLET PO SCH ×2 (08:49→21:05)
[2020-03-15] MEDS: *HR* Digoxin 0.125 MG TABLET PO SCH (08:49)
[2020-03-15] MEDS: lisinopriL 5 MG TABLET PO SCH (08:50)
[2020-03-15] MEDS: Insulin DETEMIR 100 UNIT/ML X5UNITS SUBQ SCH ×2 (08:52→21:05)
[2020-03-15] MEDS ORDERED: Lidocaine 4% CREAM (LMX) 5 GM TP PRN (10:07)
[2020-03-15] MEDS: Ipratropium/Albuterol Neb 3 ML IH SCH ×3 (10:27→22:51)
[2020-03-15] MEDS: Budesonide Neb 0.5 MG/2 ML IH SCH ×2 (10:30→22:50)
[2020-03-15] MEDS: Furosemide 40 MG TABLET PO SCH ×2 (10:41→17:19)
[2020-03-15] MEDS: Nystatin POWDER 30 GM BOTTLE TP SCH ×2 (12:21→21:06)
[2020-03-16] MEDS ORDERED: Albuterol 2.5 MG/3 ML NEBULIZER IH PRN (01:46)
[2020-03-16] MEDS: Ipratropium/Albuterol Neb 3 ML IH SCH ×3 (03:28→16:35)
[2020-03-16] MEDS: Ondansetron 4 MG/2 ML VIAL IVP PRN (06:33)
[2020-03-16 07:16] LABS: BUN/Creatinine Ratio 29 (6-26); Blood Urea Nitrogen 35 mg/dL (8-23); Calcium 8.6 mg/dL (8.6-10.3); Carbon Dioxide 33 mEq/L (23-29); Chloride 96 mEq/L (98-107); Glucose 159 mg/dL (70-105); Magnesium 1.9 mg/dL (1.6-2.6); Osmolality,Calculated 295 (280-300); Phosphorous 2.7 mg/dL (2.7-4.5); Potassium 4.1 mEq/L (3.5-5.1); Sodium 137 mEq/L (136-145); eGFR For African Americans > 60 (> 60); eGFR For Non-African Americans 60 (> 60)
[2020-03-16] MEDS: Budesonide Neb 0.5 MG/2 ML IH SCH (09:20)
[2020-03-16] MEDS: Spironolactone 12.5 MG TABLET PO SCH (10:06)
[2020-03-16] MEDS: Metoprolol XL (24 HR) Succ 25 MG TAB.ER.24H PO SCH (10:06)
[2020-03-16] MEDS: BuPROPion SR (12 HR) 150 MG TABLET PO SCH (10:06)
[2020-03-16] MEDS: Apixaban 5 MG TABLET PO SCH (10:06)
[2020-03-16] MEDS: Furosemide 40 MG TABLET PO SCH ×2 (10:06→17:07)
[2020-03-16] MEDS: lisinopriL 5 MG TABLET PO SCH (10:06)
[2020-03-16] MEDS: *HR* Digoxin 0.125 MG TABLET PO SCH (10:06)
[2020-03-16] MEDS: Aspirin 81 MG TAB.CHEW PO SCH (10:06)
[2020-03-16] MEDS: Nystatin POWDER 30 GM BOTTLE TP SCH (10:10)
[2020-03-16] MEDS: Insulin LISPRO 300 UNITS/3 ML VIAL SUBQ SCH ×3 (10:11→17:07)
[2020-03-16] MEDS: Insulin DETEMIR 100 UNIT/ML X5UNITS SUBQ SCH (10:14)
[2020-03-16 17:00] VITALS: BP 100/65
== END 2020-03-16 18:26 ==
LOC: 3BNU 12:21 → EMEROOARM 12:21 → SUATTDRO 14:41 → 3BNU 15:32
PROVIDERS: ADMIT Internal Medicine; ATTEND Internal Medicine

== ENCOUNTER 2020-03-22 04:00 | Inpatient (IN) ==
[2020-03-22 05:36] LABS: Bilirubin,Urine Negative (Negative); Blood,Urine Moderate (Negative); Clarity,Urine Clear (Clear); Color,Urine Light-Yellow (Yellow); Glucose,Urine (UA) 300 mg/dL (Normal); Ketones,Urine Negative (Negative); Leukocyte Esterase,Urine Negative (Negative); Mucus,Urine Few per lpf (None-Few); Nitrite,Urine Negative (Negative); PH,Urine 6.5 pH Units (5.0-8.0); Protein,Urine 200 mg/dL (Neg-Trace); RBC,Urine 0-3 per hpf (0-3); Specific Gravity,Urine 1.011 (1.010-1.025); Squamous Epithelial Cell,Urine Few per hpf (None-Few); Urobilinogen,Urine Normal (Normal); WBC,Urine 0-3 per hpf (0-3)
[2020-03-22 06:05] LABS: Basophils % 0.1 %; Hematocrit 36.2 % (37.5-50.1); Hemoglobin 10.7 g/dL (12.9-16.9); Immature Granulocytes % 0.6 % (0-4); Immature Platelets 13.6 % (1.1-6.1); Lymphocytes # 0.5 K/mcL (0.6-4.6); Lymphocytes % 6.9 %; Mean Corpuscular HGB Conc 29.6 g/dL (31.6-35.5); Mean Corpuscular Hemoglobin 25.2 pg (28.0-33.3); Mean Corpuscular Volume 85.2 fL (83.0-100.0); Mean Platelet Volume 12.2 fL (9.4-12.4); Monocytes # 0.6 K/mcL (0.0-1.3); Monocytes % 9.3 %; Neutrophils # 5.7 K/mcL (1.6-8.9); Platelet Count 139 K/mcL (140-400); Red Blood Count 4.25 M/mcL (4.19-5.50); Red Cell Distribution Width 17.9 % (11.5-14.5); Segmented Neutrophils % 83.1 %; White Blood Count 6.8 K/mcL (4.3-11.1)
[2020-03-22 06:24] LABS: Calcium 9.4 mg/dL (8.6-10.3); Potassium 4.5 mEq/L (3.5-5.1); Troponin I 0.15 ng/mL (< 0.04)
[2020-03-22] MEDS ORDERED: Furosemide 40 MG/4 ML VIAL IVP ONE (07:30)
[2020-03-22] MEDS ORDERED: Naloxone 0.4 MG/ML INJ IVP PRN (07:42)
[2020-03-22 08:46] LABS: Albumin 4.1 g/dL (3.5-5.7); Albumin/Globulin Ratio 1.4 (1.1-2.2); Bilirubin,Direct 0.6 mg/dL (0.0-0.2); Bilirubin,Indirect 0.8 mg/dL (0.0-1.0); Bilirubin,Total 1.4 mg/dL (0.3-1.0); Total Protein 7.1 g/dL (6.4-8.9)
[2020-03-22] MEDS ORDERED: Dextrose Gel 15 GM/37.5 ML TUBE PO PRN ×2 (10:34)
[2020-03-22] MEDS ORDERED: *HR* Dextrose 50 % in Water (Vial) 50 ML VIAL IVP PRN ×2 (10:34→10:35)
[2020-03-22] MEDS ORDERED: D5% in Water 1,000 ML IVC PRN (10:34)
[2020-03-22] MEDS ORDERED: Insulin Human Regular 100 UNIT in 0.9 % Sodium Chloride 100 ML IVC SCH (10:45)
[2020-03-22 11:24] LABS: VBG HCO3 35 mEq/L (21-27); VBG PCO2 65 mmHg (41-51); VBG PH 7.34 pH Units (7.32-7.42); VBG PO2 41 mmHg (25-50)
[2020-03-22 11:45] LABS: BUN/Creatinine Ratio 33 (6-26); Blood Urea Nitrogen 47 mg/dL (8-23); Calcium 9.2 mg/dL (8.6-10.3); Carbon Dioxide 36 mEq/L (23-29); Chloride 89 mEq/L (98-107); Glucose 442 mg/dL (70-105); Osmolality,Calculated 305 (280-300); Potassium 4.2 mEq/L (3.5-5.1); Sodium 132 mEq/L (136-145); eGFR For African Americans > 60 (> 60); eGFR For Non-African Americans 50 (> 60)
[2020-03-22 13:39] LABS: Estimated Average Glucose 318 mg/dl; Hemoglobin A1C 12.7 %
[2020-03-22] MEDS ORDERED: Insulin DETEMIR 100 UNIT/ML X5UNITS SUBQ ONE (16:05)
[2020-03-22] MEDS ORDERED: Haloperidol Lactate 5 MG/ML VIAL IVP ONE (16:08)
[2020-03-22 17:23] LABS: ABG Base Excess 8 mEq/L (-2 to 3); ABG HCO3 34 mEq/L (21-27); ABG Oxygen Saturation 88 % (95-98); ABG PCO2 49 mmHg (35-45); ABG PH 7.44 pH Units (7.32-7.45); ABG PO2 54 mmHg (85-104); ABG TCO2 35 mEq/L (20-26)
[2020-03-22 18:12] LABS: BUN/Creatinine Ratio 38 (6-26); Blood Urea Nitrogen 46 mg/dL (8-23); Carbon Dioxide 33 mEq/L (23-29); Chloride 92 mEq/L (98-107); Glucose 95 mg/dL (70-105); Osmolality,Calculated 292 (280-300); Potassium 4.1 mEq/L (3.5-5.1); Sodium 135 mEq/L (136-145); eGFR For African Americans > 60 (> 60); eGFR For Non-African Americans > 60 (> 60)
[2020-03-22] MEDS: Apixaban 5 MG TABLET PO SCH (20:09)
[2020-03-22] MEDS: risperiDONE 0.25 MG TABLET PO SCH (22:54)
[2020-03-23 05:48] LABS: Monocytes % 7.4 %
[2020-03-23 05:50] LABS: Hematocrit 34.9 % (37.5-50.1); Hemoglobin 10.4 g/dL (12.9-16.9); Immature Granulocytes % 0.3 % (0-4); Lymphocytes # 0.8 K/mcL (0.6-4.6); Lymphocytes % 12.9 %; Mean Corpuscular HGB Conc 29.8 g/dL (31.6-35.5); Mean Corpuscular Hemoglobin 25.9 pg (28.0-33.3); Mean Corpuscular Volume 86.8 fL (83.0-100.0); Monocytes # 0.4 K/mcL (0.0-1.3); Neutrophils # 4.6 K/mcL (1.6-8.9); Platelet Count 138 K/mcL (140-400); Red Blood Count 4.02 M/mcL (4.19-5.50); Red Cell Distribution Width 17.6 % (11.5-14.5); Segmented Neutrophils % 79.4 %; White Blood Count 5.8 K/mcL (4.3-11.1)
[2020-03-23 06:05] LABS: BUN/Creatinine Ratio 35 (6-26); Blood Urea Nitrogen 43 mg/dL (8-23); Calcium 8.7 mg/dL (8.6-10.3); Carbon Dioxide 37 mEq/L (23-29); Chloride 94 mEq/L (98-107); Glucose 174 mg/dL (70-105); Osmolality,Calculated 299 (280-300); Potassium 3.6 mEq/L (3.5-5.1); Sodium 137 mEq/L (136-145); eGFR For African Americans > 60 (> 60); eGFR For Non-African Americans 59 (> 60)
[2020-03-23] MEDS: lisinopriL 5 MG TABLET PO SCH (08:20)
[2020-03-23] MEDS: risperiDONE 0.25 MG TABLET PO SCH (08:20)
[2020-03-23] MEDS: Apixaban 5 MG TABLET PO SCH ×2 (08:22→20:37)
[2020-03-23] MEDS: *HR* Digoxin 0.125 MG TABLET PO SCH (08:22)
[2020-03-23] MEDS: Furosemide 40 MG/4 ML VIAL IVP SCH ×2 (08:23→16:51)
[2020-03-23] MEDS: Metoprolol XL (24 HR) Succ 25 MG TAB.ER.24H PO SCH (08:23)
[2020-03-23] MEDS: Insulin LISPRO 300 UNITS/3 ML VIAL SUBQ SCH ×4 (08:25→20:38)
[2020-03-23] MEDS ORDERED: dexAMETHasone 4 MG TABLET PO SCH (09:00)
[2020-03-23] MEDS ORDERED: Spironolactone 12.5 MG TABLET PO SCH (09:00)
[2020-03-23 11:42] LABS: ABG Base Excess 9 mEq/L (-2 to 3); ABG HCO3 35 mEq/L (21-27); ABG Oxygen Saturation 88 % (95-98); ABG PCO2 58 mmHg (35-45); ABG PO2 57 mmHg (85-104); ABG TCO2 37 mEq/L (20-26)
[2020-03-23] MEDS ORDERED: Nitroglycerin 0.4 MG TAB.SUBL SL PRN (12:26)
[2020-03-23] MEDS ORDERED: acetaZOLAMIDE 250 MG in Water for inj. (sterile) 2.5 ML IVP ONE (12:30)
[2020-03-23] MEDS ORDERED: Piperacillin/Tazobactam 3.375 GM in 0.9 % Sodium Chloride Mini Bag 100 ML IVPB SCH (16:00)
[2020-03-23] MEDS ORDERED: Insulin DETEMIR 100 UNIT/ML X5UNITS SUBQ SCH (21:00)
[2020-03-24] MEDS ORDERED: *HR* LORazepam 0.5 MG TABLET PO ONE (00:43)
[2020-03-24] MEDS: Piperacillin/Tazobactam 3.375 GM in 0.9 % Sodium Chloride Mini Bag 100 ML IVPB SCH ×2 (08:15→17:00)
[2020-03-24] MEDS: *HR* Digoxin 0.125 MG TABLET PO SCH (08:16)
[2020-03-24] MEDS: Apixaban 5 MG TABLET PO SCH ×2 (08:16→20:42)
[2020-03-24] MEDS: Metoprolol XL (24 HR) Succ 25 MG TAB.ER.24H PO SCH (08:16)
[2020-03-24] MEDS: Aspirin 81 MG TAB.CHEW PO SCH (08:16)
[2020-03-24] MEDS: Furosemide 40 MG/4 ML VIAL IVP SCH ×2 (08:17→17:01)
[2020-03-24] MEDS: lisinopriL 5 MG TABLET PO SCH (08:17)
[2020-03-24] MEDS: Insulin LISPRO 300 UNITS/3 ML VIAL SUBQ SCH ×4 (08:19→20:42)
[2020-03-24 08:40] LABS: VBG HCO3 36 mEq/L (21-27); VBG PCO2 54 mmHg (41-51); VBG PH 7.43 pH Units (7.32-7.42); VBG PO2 173 mmHg (25-50)
[2020-03-24 08:41] LABS: Hematocrit 35.6 % (37.5-50.1); Hemoglobin 10.6 g/dL (12.9-16.9); Mean Corpuscular HGB Conc 29.8 g/dL (31.6-35.5); Mean Corpuscular Hemoglobin 25.5 pg (28.0-33.3); Mean Corpuscular Volume 85.6 fL (83.0-100.0); Mean Platelet Volume 11.2 fL (9.4-12.4); Platelet Count 186 K/mcL (140-400); Red Blood Count 4.16 M/mcL (4.19-5.50); Red Cell Distribution Width 17.5 % (11.5-14.5); White Blood Count 5.6 K/mcL (4.3-11.1)
[2020-03-24 08:59] LABS: BUN/Creatinine Ratio 32 (6-26); Blood Urea Nitrogen 31 mg/dL (8-23); Calcium 8.5 mg/dL (8.6-10.3); Carbon Dioxide 37 mEq/L (23-29); Chloride 94 mEq/L (98-107); Glucose 241 mg/dL (70-105); Magnesium 1.8 mg/dL (1.6-2.6); Osmolality,Calculated 298 (280-300); Potassium 3.5 mEq/L (3.5-5.1); Sodium 137 mEq/L (136-145); eGFR For African Americans > 60 (> 60); eGFR For Non-African Americans > 60 (> 60)
[2020-03-24] MEDS ORDERED: predniSONE 20 MG TABLET PO SCH (11:15)
[2020-03-24] MEDS: QUEtiapine Fumarate 25 MG TABLET PO SCH (20:42)
[2020-03-24] MEDS ORDERED: Insulin DETEMIR 100 UNIT/ML X5UNITS SUBQ SCH (21:00)
[2020-03-25] MEDS: Piperacillin/Tazobactam 3.375 GM in 0.9 % Sodium Chloride Mini Bag 100 ML IVPB SCH ×3 (01:30→16:02)
[2020-03-25 02:21] LABS: Immature Granulocytes % 0.2 % (0-4)
[2020-03-25 02:22] LABS: Hematocrit 35.5 % (37.5-50.1); Hemoglobin 10.5 g/dL (12.9-16.9); Lymphocytes # 0.3 K/mcL (0.6-4.6); Lymphocytes % 7.7 %; Mean Corpuscular HGB Conc 29.6 g/dL (31.6-35.5); Mean Corpuscular Hemoglobin 25.5 pg (28.0-33.3); Mean Corpuscular Volume 86.2 fL (83.0-100.0); Mean Platelet Volume 10.5 fL (9.4-12.4); Monocytes # 0.2 K/mcL (0.0-1.3); Monocytes % 4.5 %; Neutrophils # 3.5 K/mcL (1.6-8.9); Platelet Count 171 K/mcL (140-400); Red Blood Count 4.12 M/mcL (4.19-5.50); Red Cell Distribution Width 17.4 % (11.5-14.5); Segmented Neutrophils % 87.6 %
[2020-03-25 02:41] LABS: Alanine Aminotransferase 83 Units/L (7-52); Albumin/Globulin Ratio 1.2 (1.1-2.2); Alkaline Phosphatase 141 Units/L (34-104); Aspartate Amino Transferase 67 Units/L (13-39); BUN/Creatinine Ratio 33 (6-26); Bilirubin,Total 0.8 mg/dL (0.3-1.0); Blood Urea Nitrogen 33 mg/dL (8-23); Calcium 8.1 mg/dL (8.6-10.3); Carbon Dioxide 35 mEq/L (23-29); Chloride 96 mEq/L (98-107); Globulin 2.5 g/dL (2.4-3.5); Glucose 385 mg/dL (70-105); Lactate Dehydrogenase 208 Units/L (140-271); Osmolality,Calculated 305 (280-300); Potassium 3.7 mEq/L (3.5-5.1); Sodium 136 mEq/L (136-145); Total Protein 5.5 g/dL (6.4-8.9); eGFR For African Americans > 60 (> 60); eGFR For Non-African Americans > 60 (> 60)
[2020-03-25 02:42] LABS: Anisocytosis 1+ (Not Present); Hypochromasia Present (Not Present); Large Platelets Present (Not Present); Platelet Estimate Normal (Normal)
[2020-03-25 02:59] LABS: Ferritin 396 ng/mL (20-250)
[2020-03-25] MEDS: *HR* Digoxin 0.125 MG TABLET PO SCH (08:09)
[2020-03-25] MEDS: Metoprolol XL (24 HR) Succ 25 MG TAB.ER.24H PO SCH (08:09)
[2020-03-25] MEDS: Aspirin 81 MG TAB.CHEW PO SCH (08:09)
[2020-03-25] MEDS: Furosemide 40 MG/4 ML VIAL IVP SCH ×2 (08:09→16:02)
[2020-03-25] MEDS: lisinopriL 5 MG TABLET PO SCH (08:09)
[2020-03-25] MEDS: Apixaban 5 MG TABLET PO SCH ×2 (08:09→20:19)
[2020-03-25] MEDS: Insulin LISPRO 300 UNITS/3 ML VIAL SUBQ SCH ×4 (08:10→20:24)
[2020-03-25] MEDS: Insulin DETEMIR 100 UNIT/ML X5UNITS SUBQ SCH ×2 (11:05→20:19)
[2020-03-25] MEDS: QUEtiapine Fumarate 25 MG TABLET PO SCH (20:19)
[2020-03-26] MEDS: Piperacillin/Tazobactam 3.375 GM in 0.9 % Sodium Chloride Mini Bag 100 ML IVPB SCH ×2 (00:55→08:21)
[2020-03-26 06:31] LABS: Hematocrit 37.8 % (37.5-50.1); Hemoglobin 11.2 g/dL (12.9-16.9); Mean Corpuscular HGB Conc 29.6 g/dL (31.6-35.5); Mean Corpuscular Hemoglobin 25.3 pg (28.0-33.3); Mean Corpuscular Volume 85.3 fL (83.0-100.0); Mean Platelet Volume 11.1 fL (9.4-12.4); Platelet Count 226 K/mcL (140-400); Red Blood Count 4.43 M/mcL (4.19-5.50)
[2020-03-26 06:34] LABS: White Blood Count 9.9 K/mcL (4.3-11.1)
[2020-03-26 06:53] LABS: BUN/Creatinine Ratio 30 (6-26); Blood Urea Nitrogen 32 mg/dL (8-23); Calcium 8.7 mg/dL (8.6-10.3); Carbon Dioxide 33 mEq/L (23-29); Chloride 97 mEq/L (98-107); Glucose 252 mg/dL (70-105); Osmolality,Calculated 299 (280-300); Potassium 3.4 mEq/L (3.5-5.1); Sodium 137 mEq/L (136-145); eGFR For African Americans > 60 (> 60); eGFR For Non-African Americans > 60 (> 60)
[2020-03-26] MEDS ORDERED: Potassium Chloride Elixir 20 MEQ/15 ML UDC PO ONE (07:41)
[2020-03-26 08:10] VITALS: BP 130/83
[2020-03-26] MEDS: Metoprolol XL (24 HR) Succ 25 MG TAB.ER.24H PO SCH (08:20)
[2020-03-26] MEDS: Apixaban 5 MG TABLET PO SCH (08:20)
[2020-03-26] MEDS: *HR* Digoxin 0.125 MG TABLET PO SCH (08:20)
[2020-03-26] MEDS: Aspirin 81 MG TAB.CHEW PO SCH (08:20)
[2020-03-26] MEDS: lisinopriL 5 MG TABLET PO SCH (08:20)
[2020-03-26] MEDS: Furosemide 40 MG/4 ML VIAL IVP SCH (08:21)
[2020-03-26] MEDS: Insulin LISPRO 300 UNITS/3 ML VIAL SUBQ SCH ×2 (08:21→12:47)
[2020-03-26] MEDS: Insulin DETEMIR 100 UNIT/ML X5UNITS SUBQ SCH (08:22)
== END 2020-03-26 14:50 | disposition home health service (06) | DRG 291 ==
LOC: EMEROOARM 04:00 → 2NENU 04:00 → SUATTDRO 07:49 → 2NENU 07:54
PROVIDERS: ADMIT Internal Medicine; ATTEND Internal Medicine

== ENCOUNTER 2020-04-03 12:16 | Inpatient (IN) ==
[2020-04-03] MEDS ORDERED: 0.9 % Sodium Chloride 1,000 ML IVC SCH (12:45)
[2020-04-03 13:50] LABS: Basophils % 0.3 %; Eosinophils % 0.4 %; Hematocrit 34.8 % (37.5-50.1); Hemoglobin 10.7 g/dL (12.9-16.9); Immature Granulocytes % 0.3 % (0-4); Lymphocytes # 0.9 K/mcL (0.6-4.6); Lymphocytes % 11.6 %; Mean Corpuscular HGB Conc 30.7 g/dL (31.6-35.5); Mean Corpuscular Hemoglobin 26.2 pg (28.0-33.3); Mean Corpuscular Volume 85.1 fL (83.0-100.0); Mean Platelet Volume 10.6 fL (9.4-12.4); Monocytes # 0.6 K/mcL (0.0-1.3); Monocytes % 7.2 %; Neutrophils # 6.2 K/mcL (1.6-8.9); Platelet Count 164 K/mcL (140-400); Red Blood Count 4.09 M/mcL (4.19-5.50); Segmented Neutrophils % 80.2 %; White Blood Count 7.8 K/mcL (4.3-11.1)
[2020-04-03 13:57] LABS: VBG HCO3 29 mEq/L (21-27); VBG PCO2 48 mmHg (41-51); VBG PH 7.39 pH Units (7.32-7.42); VBG PO2 94 mmHg (25-50)
[2020-04-03 13:57] LABS: INR 1.5; Prothrombin Time 16.7 Seconds (9.4-12.1)
[2020-04-03 13:59] LABS: Amphetamine Screen,Urine Negative ng/mL (Cutoff=1000); Barbiturate Screen,Urine Negative ng/mL (Cutoff=200); Benzodiazepines Screen,Urine Negative ng/mL (Cutoff=200); Cannabinoid Screen,Urine Negative ng/mL (Cutoff = 50); Cocaine Screen,Urine Negative ng/mL (Cutoff= 300); Opiate Screen,Urine Negative ng/mL (Cutoff=300); Phencyclidine Screen,Urine Negative ng/mL (Cutoff=25)
[2020-04-03 14:00] LABS: Activated Partial Thrombo Time 25.2 Seconds (26.0-36.0)
[2020-04-03 14:09] LABS: Bilirubin,Urine Negative (Negative); Blood,Urine Small (Negative); Clarity,Urine Clear (Clear); Color,Urine Light-Yellow (Yellow); Glucose,Urine (UA) >=1000 mg/dL (Normal); Ketones,Urine Trace mg/dL (Negative); Leukocyte Esterase,Urine Negative (Negative); Nitrite,Urine Negative (Negative); Protein,Urine 200 mg/dL (Neg-Trace); RBC,Urine 0-3 per hpf (0-3); Specific Gravity,Urine > 1.030 (1.010-1.025); Squamous Epithelial Cell,Urine Few per hpf (None-Few); Urobilinogen,Urine Normal (Normal); WBC,Urine 0-3 per hpf (0-3)
[2020-04-03 14:12] LABS: Alanine Aminotransferase 12 Units/L (7-52); Albumin 2.9 g/dL (3.5-5.7); Alkaline Phosphatase 118 Units/L (34-104); Aspartate Amino Transferase 10 Units/L (13-39); BUN/Creatinine Ratio 10 (6-26); Bilirubin,Direct 0.2 mg/dL (0.0-0.2); Bilirubin,Indirect 0.6 mg/dL (0.0-1.0); Bilirubin,Total 0.8 mg/dL (0.3-1.0); Blood Urea Nitrogen 10 mg/dL (8-23); Calcium 8.6 mg/dL (8.6-10.3); Carbon Dioxide 30 mEq/L (23-29); Chloride 96 mEq/L (98-107); Ethanol < 10 mg/dL (Less than 10); Globulin 2.8 g/dL (2.4-3.5); Glucose 464 mg/dL (70-105); Osmolality,Calculated 295 (280-300); Potassium 3.7 mEq/L (3.5-5.1); Sodium 133 mEq/L (136-145); Total Protein 5.7 g/dL (6.4-8.9); eGFR For African Americans > 60 (> 60); eGFR For Non-African Americans > 60 (> 60)
[2020-04-03 14:29] LABS: Thyroid Stimulating Hormone 1.448 mcIU/mL (0.340-5.600)
[2020-04-03] MEDS ORDERED: Aspirin 81 MG TAB.CHEW PO STA (14:49)
[2020-04-03] MEDS ORDERED: Naloxone 0.4 MG/ML INJ IVP PRN (15:44)
[2020-04-03] MEDS ORDERED: Insulin Human Regular 5 UNIT in 0.9 % Sodium Chloride 10 ML IV ONE (15:48)
[2020-04-03] MEDS ORDERED: Furosemide 40 MG/4 ML VIAL IVP ONE (15:56)
[2020-04-03] MEDS ORDERED: *HR* Dextrose 50 % in Water (Vial) 50 ML VIAL IVP PRN (15:58)
[2020-04-03] MEDS ORDERED: D5% in Water 1,000 ML IVC PRN (15:58)
[2020-04-03] MEDS ORDERED: Dextrose Gel 15 GM/37.5 ML TUBE PO PRN ×2 (15:58)
[2020-04-03] MEDS ORDERED: Ipratropium/Albuterol Neb 3 ML IH PRN (16:49)
[2020-04-03] MEDS: Insulin LISPRO 300 UNITS/3 ML VIAL SUBQ SCH ×2 (18:31→21:00)
[2020-04-03] MEDS: Apixaban 5 MG TABLET PO SCH (20:59)
[2020-04-03] MEDS: Insulin DETEMIR 100 UNIT/ML X5UNITS SUBQ SCH (20:59)
[2020-04-04] MEDS ORDERED: Insulin LISPRO 300 UNITS/3 ML VIAL SUBQ ONE (00:02)
[2020-04-04 01:56] LABS: Basophils % 0.3 %; Eosinophils % 0.4 %; Hematocrit 34.6 % (37.5-50.1); Hemoglobin 10.5 g/dL (12.9-16.9); Immature Granulocytes % 0.4 % (0-4); Lymphocytes % 12.6 %; Mean Corpuscular HGB Conc 30.3 g/dL (31.6-35.5); Mean Corpuscular Hemoglobin 25.7 pg (28.0-33.3); Mean Corpuscular Volume 84.6 fL (83.0-100.0); Mean Platelet Volume 10.8 fL (9.4-12.4); Monocytes # 0.5 K/mcL (0.0-1.3); Monocytes % 6.9 %; Neutrophils # 6.3 K/mcL (1.6-8.9); Platelet Count 167 K/mcL (140-400); Red Blood Count 4.09 M/mcL (4.19-5.50); Red Cell Distribution Width 17.7 % (11.5-14.5); Segmented Neutrophils % 79.4 %; White Blood Count 7.9 K/mcL (4.3-11.1)
[2020-04-04 02:12] LABS: BUN/Creatinine Ratio 15 (6-26); Blood Urea Nitrogen 12 mg/dL (8-23); Calcium 8.5 mg/dL (8.6-10.3); Carbon Dioxide 32 mEq/L (23-29); Chloride 99 mEq/L (98-107); Glucose 206 mg/dL (70-105); Osmolality,Calculated 290 (280-300); Potassium 3.3 mEq/L (3.5-5.1); Sodium 137 mEq/L (136-145); eGFR For African Americans > 60 (> 60); eGFR For Non-African Americans > 60 (> 60)
[2020-04-04] MEDS: Apixaban 5 MG TABLET PO SCH ×2 (08:39→20:32)
[2020-04-04] MEDS: Metoprolol XL (24 HR) Succ 25 MG TAB.ER.24H PO SCH (08:39)
[2020-04-04] MEDS: Insulin DETEMIR 100 UNIT/ML X5UNITS SUBQ SCH ×2 (08:39→20:33)
[2020-04-04] MEDS: Insulin LISPRO 300 UNITS/3 ML VIAL SUBQ SCH ×4 (08:41→20:32)
[2020-04-04] MEDS: Furosemide 40 MG/4 ML VIAL IVP SCH (11:47)
[2020-04-04] MEDS: Ipratropium/Albuterol Neb 3 ML IH SCH ×2 (15:47→21:54)
[2020-04-04] MEDS: QUEtiapine Fumarate 25 MG TABLET PO SCH (20:32)
[2020-04-05 03:23] LABS: Basophils % 0.2 %; Eosinophils % 0.3 %; Hematocrit 32.8 % (37.5-50.1); Hemoglobin 9.8 g/dL (12.9-16.9); Immature Granulocytes % 0.2 % (0-4); Lymphocytes # 0.9 K/mcL (0.6-4.6); Lymphocytes % 15.1 %; Mean Corpuscular HGB Conc 29.9 g/dL (31.6-35.5); Mean Corpuscular Hemoglobin 25.2 pg (28.0-33.3); Mean Corpuscular Volume 84.3 fL (83.0-100.0); Mean Platelet Volume 11.1 fL (9.4-12.4); Monocytes # 0.5 K/mcL (0.0-1.3); Monocytes % 7.4 %; Neutrophils # 4.7 K/mcL (1.6-8.9); Platelet Count 146 K/mcL (140-400); Red Blood Count 3.89 M/mcL (4.19-5.50); Red Cell Distribution Width 18.4 % (11.5-14.5); Segmented Neutrophils % 76.8 %; White Blood Count 6.1 K/mcL (4.3-11.1)
[2020-04-05 03:38] LABS: BUN/Creatinine Ratio 23 (6-26); Blood Urea Nitrogen 16 mg/dL (8-23); Calcium 8.4 mg/dL (8.6-10.3); Carbon Dioxide 30 mEq/L (23-29); Chloride 100 mEq/L (98-107); Glucose 292 mg/dL (70-105); Osmolality,Calculated 294 (280-300); Potassium 3.7 mEq/L (3.5-5.1); Sodium 136 mEq/L (136-145); eGFR For African Americans > 60 (> 60); eGFR For Non-African Americans > 60 (> 60)
[2020-04-05] MEDS: Ipratropium/Albuterol Neb 3 ML IH SCH ×4 (03:38→20:31)
[2020-04-05] MEDS: Metoprolol XL (24 HR) Succ 25 MG TAB.ER.24H PO SCH (08:33)
[2020-04-05] MEDS: *HR* Digoxin 0.125 MG TABLET PO SCH (08:33)
[2020-04-05] MEDS: lisinopriL 5 MG TABLET PO SCH (08:34)
[2020-04-05] MEDS: Aspirin 81 MG TAB.CHEW PO SCH (08:36)
[2020-04-05] MEDS: Apixaban 5 MG TABLET PO SCH ×2 (08:36→20:16)
[2020-04-05] MEDS: Furosemide 40 MG/4 ML VIAL IVP SCH (08:37)
[2020-04-05] MEDS: Spironolactone 12.5 MG TABLET PO SCH (08:37)
[2020-04-05] MEDS: Insulin LISPRO 300 UNITS/3 ML VIAL SUBQ SCH ×4 (08:38→20:16)
[2020-04-05] MEDS: Insulin DETEMIR 100 UNIT/ML X5UNITS SUBQ SCH ×2 (08:39→20:16)
[2020-04-05] MEDS: Furosemide 240 MG in 0.9 % Sodium Chloride 96 ML IVC SCH (13:35)
[2020-04-05] MEDS: Acetaminophen 325 MG TABLET PO PRN (17:44)
[2020-04-05] MEDS: QUEtiapine Fumarate 25 MG TABLET PO SCH (20:16)
[2020-04-05] MEDS ORDERED: *HR* HYDROcodone/Acet 5/325 mg TABLET PO ONE (23:32)
[2020-04-06 02:42] LABS: Blood Urea Nitrogen 17 mg/dL (8-23); Carbon Dioxide 32 mEq/L (23-29); Chloride 100 mEq/L (98-107); Glucose 187 mg/dL (70-105); Osmolality,Calculated 290 (280-300); Potassium 3.6 mEq/L (3.5-5.1); Sodium 137 mEq/L (136-145)
[2020-04-06] MEDS ORDERED: 0.9 % Sodium Chloride 250 ML IVC ONE (03:51)
[2020-04-06] MEDS: Ipratropium/Albuterol Neb 3 ML IH SCH ×4 (04:12→21:48)
[2020-04-06 04:15] LABS: BUN/Creatinine Ratio 21 (6-26); eGFR For African Americans > 60 (> 60); eGFR For Non-African Americans > 60 (> 60)
[2020-04-06] MEDS: Insulin LISPRO 300 UNITS/3 ML VIAL SUBQ SCH ×4 (09:27→22:05)
[2020-04-06] MEDS: Apixaban 5 MG TABLET PO SCH ×2 (09:31→22:03)
[2020-04-06] MEDS: Aspirin 81 MG TAB.CHEW PO SCH (09:31)
[2020-04-06] MEDS: Metoprolol XL (24 HR) Succ 25 MG TAB.ER.24H PO SCH (09:32)
[2020-04-06] MEDS: lisinopriL 5 MG TABLET PO SCH (09:32)
[2020-04-06] MEDS: Spironolactone 12.5 MG TABLET PO SCH (09:32)
[2020-04-06] MEDS: *HR* Digoxin 0.125 MG TABLET PO SCH (09:32)
[2020-04-06] MEDS: Insulin DETEMIR 100 UNIT/ML X5UNITS SUBQ SCH ×2 (09:33→22:04)
[2020-04-06] MEDS: Furosemide 240 MG in 0.9 % Sodium Chloride 96 ML IVC SCH (14:03)
[2020-04-06] MEDS: QUEtiapine Fumarate 25 MG TABLET PO SCH (22:03)
[2020-04-07] MEDS: Ipratropium/Albuterol Neb 3 ML IH SCH ×4 (03:46→22:55)
[2020-04-07 04:02] LABS: BUN/Creatinine Ratio 24 (6-26); Blood Urea Nitrogen 20 mg/dL (8-23); Calcium 8.6 mg/dL (8.6-10.3); Carbon Dioxide 33 mEq/L (23-29); Chloride 99 mEq/L (98-107); Glucose 141 mg/dL (70-105); Osmolality,Calculated 291 (280-300); Potassium 3.7 mEq/L (3.5-5.1); Sodium 138 mEq/L (136-145); eGFR For African Americans > 60 (> 60); eGFR For Non-African Americans > 60 (> 60)
[2020-04-07] MEDS: Albumin 25% 25gram/100mL 25 GM/100 ML IV.SOLN IVC SCH ×4 (05:30→11:37)
[2020-04-07] MEDS: Spironolactone 12.5 MG TABLET PO SCH (09:36)
[2020-04-07] MEDS: Aspirin 81 MG TAB.CHEW PO SCH (09:37)
[2020-04-07] MEDS: Insulin LISPRO 300 UNITS/3 ML VIAL SUBQ SCH ×4 (09:38→21:37)
[2020-04-07] MEDS: Insulin DETEMIR 100 UNIT/ML X5UNITS SUBQ SCH ×2 (09:39→21:38)
[2020-04-07] MEDS: lisinopriL 5 MG TABLET PO SCH (10:05)
[2020-04-07] MEDS: Metoprolol XL (24 HR) Succ 25 MG TAB.ER.24H PO SCH (10:06)
[2020-04-07] MEDS: Apixaban 5 MG TABLET PO SCH ×2 (10:06→21:37)
[2020-04-07] MEDS: *HR* Digoxin 0.125 MG TABLET PO SCH (10:06)
[2020-04-07] MEDS: Furosemide 240 MG in 0.9 % Sodium Chloride 96 ML IVC SCH (10:20)
[2020-04-07] MEDS: Acetaminophen 325 MG TABLET PO PRN (21:36)
[2020-04-07] MEDS: QUEtiapine Fumarate 25 MG TABLET PO SCH (21:37)
[2020-04-08] MEDS: Ipratropium/Albuterol Neb 3 ML IH SCH (03:19)
[2020-04-08 06:09] LABS: BUN/Creatinine Ratio 24 (6-26); Blood Urea Nitrogen 22 mg/dL (8-23); Calcium 9.5 mg/dL (8.6-10.3); Carbon Dioxide 36 mEq/L (23-29); Chloride 96 mEq/L (98-107); Glucose 384 mg/dL (70-105); Osmolality,Calculated 301 (280-300); Potassium 4.6 mEq/L (3.5-5.1); Sodium 136 mEq/L (136-145); eGFR For African Americans > 60 (> 60); eGFR For Non-African Americans > 60 (> 60)
[2020-04-08] MEDS: Furosemide 240 MG in 0.9 % Sodium Chloride 96 ML IVC SCH (08:14)
[2020-04-08] MEDS: Insulin LISPRO 300 UNITS/3 ML VIAL SUBQ SCH ×4 (08:17→20:23)
[2020-04-08] MEDS: Aspirin 81 MG TAB.CHEW PO SCH (08:17)
[2020-04-08] MEDS: lisinopriL 5 MG TABLET PO SCH (08:17)
[2020-04-08] MEDS: Spironolactone 12.5 MG TABLET PO SCH (08:17)
[2020-04-08] MEDS: Insulin DETEMIR 100 UNIT/ML X5UNITS SUBQ SCH ×2 (08:17→20:25)
[2020-04-08] MEDS: Apixaban 5 MG TABLET PO SCH ×2 (08:18→20:25)
[2020-04-08] MEDS: Metoprolol XL (24 HR) Succ 25 MG TAB.ER.24H PO SCH (08:18)
[2020-04-08] MEDS: *HR* Digoxin 0.125 MG TABLET PO SCH (08:18)
[2020-04-08] MEDS: QUEtiapine Fumarate 25 MG TABLET PO SCH (20:25)
[2020-04-09 01:15] LABS: Hematocrit 35.2 % (37.5-50.1); Hemoglobin 10.4 g/dL (12.9-16.9); Mean Corpuscular HGB Conc 29.5 g/dL (31.6-35.5); Mean Corpuscular Hemoglobin 25.1 pg (28.0-33.3); Mean Platelet Volume 10.9 fL (9.4-12.4); Platelet Count 154 K/mcL (140-400); Red Blood Count 4.14 M/mcL (4.19-5.50); Red Cell Distribution Width 18.1 % (11.5-14.5); White Blood Count 7.5 K/mcL (4.3-11.1)
[2020-04-09 01:34] LABS: BUN/Creatinine Ratio 21 (6-26); Blood Urea Nitrogen 17 mg/dL (8-23); Calcium 9.9 mg/dL (8.6-10.3); Carbon Dioxide 37 mEq/L (23-29); Chloride 94 mEq/L (98-107); Glucose 114 mg/dL (70-105); Osmolality,Calculated 286 (280-300); Potassium 4.1 mEq/L (3.5-5.1); Sodium 137 mEq/L (136-145); eGFR For African Americans > 60 (> 60); eGFR For Non-African Americans > 60 (> 60)
[2020-04-09] MEDS: Insulin LISPRO 300 UNITS/3 ML VIAL SUBQ SCH ×4 (08:26→20:01)
[2020-04-09] MEDS: Apixaban 5 MG TABLET PO SCH ×2 (08:47→20:17)
[2020-04-09] MEDS: Spironolactone 12.5 MG TABLET PO SCH (08:47)
[2020-04-09] MEDS: *HR* Digoxin 0.125 MG TABLET PO SCH (08:47)
[2020-04-09] MEDS: Aspirin 81 MG TAB.CHEW PO SCH (08:48)
[2020-04-09] MEDS: lisinopriL 5 MG TABLET PO SCH (08:48)
[2020-04-09] MEDS: Metoprolol XL (24 HR) Succ 25 MG TAB.ER.24H PO SCH (08:48)
[2020-04-09] MEDS: Furosemide 240 MG in 0.9 % Sodium Chloride 96 ML IVC SCH (08:48)
[2020-04-09] MEDS: Insulin DETEMIR 100 UNIT/ML X5UNITS SUBQ SCH ×2 (08:49→20:17)
[2020-04-09] MEDS ORDERED: Furosemide 240 MG in 0.9 % Sodium Chloride 96 ML IVC SCH (19:46)
[2020-04-09] MEDS: QUEtiapine Fumarate 25 MG TABLET PO SCH (20:17)
[2020-04-10 06:45] LABS: BUN/Creatinine Ratio 21 (6-26); Blood Urea Nitrogen 18 mg/dL (8-23); Calcium 9.4 mg/dL (8.6-10.3); Carbon Dioxide 41 mEq/L (23-29); Chloride 93 mEq/L (98-107); Glucose 191 mg/dL (70-105); Osmolality,Calculated 291 (280-300); Potassium 3.8 mEq/L (3.5-5.1); Sodium 137 mEq/L (136-145); eGFR For African Americans > 60 (> 60); eGFR For Non-African Americans > 60 (> 60)
[2020-04-10] MEDS: Aspirin 81 MG TAB.CHEW PO SCH (08:26)
[2020-04-10] MEDS: Spironolactone 12.5 MG TABLET PO SCH (08:26)
[2020-04-10] MEDS: lisinopriL 5 MG TABLET PO SCH (08:26)
[2020-04-10] MEDS: *HR* Digoxin 0.125 MG TABLET PO SCH (08:26)
[2020-04-10] MEDS: Insulin LISPRO 300 UNITS/3 ML VIAL SUBQ SCH ×4 (08:27→20:52)
[2020-04-10] MEDS: Apixaban 5 MG TABLET PO SCH ×2 (09:00→20:52)
[2020-04-10] MEDS: Metoprolol XL (24 HR) Succ 25 MG TAB.ER.24H PO SCH (09:00)
[2020-04-10] MEDS ORDERED: Bumetanide 1 MG TABLET PO SCH (09:15)
[2020-04-10] MEDS: Insulin DETEMIR 100 UNIT/ML X5UNITS SUBQ SCH ×2 (15:10→20:51)
[2020-04-10] MEDS: Bumetanide 1 MG TABLET PO SCH ×2 (15:10→18:32)
[2020-04-10] MEDS: QUEtiapine Fumarate 25 MG TABLET PO SCH (20:52)
[2020-04-11 01:46] LABS: VBG HCO3 41 mEq/L (21-27); VBG PCO2 68 mmHg (41-51); VBG PH 7.39 pH Units (7.32-7.42); VBG PO2 75 mmHg (25-50)
[2020-04-11 01:50] LABS: BUN/Creatinine Ratio 18 (6-26); Blood Urea Nitrogen 19 mg/dL (8-23); Calcium 9.1 mg/dL (8.6-10.3); Carbon Dioxide 41 mEq/L (23-29); Chloride 91 mEq/L (98-107); Glucose 117 mg/dL (70-105); Osmolality,Calculated 283 (280-300); Potassium 3.8 mEq/L (3.5-5.1); Sodium 135 mEq/L (136-145); eGFR For African Americans > 60 (> 60); eGFR For Non-African Americans > 60 (> 60)
[2020-04-11] MEDS: Albumin 25% 25gram/100mL 25 GM/100 ML IV.SOLN IVC SCH ×5 (02:29→07:41)
[2020-04-11] MEDS ORDERED: Bumetanide 1 MG TABLET PO SCH ×2 (08:00→17:00)
[2020-04-11] MEDS: Insulin LISPRO 300 UNITS/3 ML VIAL SUBQ SCH ×2 (08:10→10:55)
[2020-04-11] MEDS: Apixaban 5 MG TABLET PO SCH (08:27)
[2020-04-11] MEDS: Metoprolol XL (24 HR) Succ 25 MG TAB.ER.24H PO SCH (08:27)
[2020-04-11] MEDS: Aspirin 81 MG TAB.CHEW PO SCH (08:27)
[2020-04-11] MEDS: *HR* Digoxin 0.125 MG TABLET PO SCH (08:27)
[2020-04-11] MEDS: Spironolactone 12.5 MG TABLET PO SCH (08:27)
[2020-04-11] MEDS: lisinopriL 5 MG TABLET PO SCH (08:27)
[2020-04-11] MEDS: Insulin DETEMIR 100 UNIT/ML X5UNITS SUBQ SCH (09:42)
[2020-04-11 10:53] VITALS: BP 114/65
[2020-04-11 12:29] LABS: Adenovirus Not Detected (Not Detect); Bordetella Pertussis Not Detected (Not Detect); Chlamydophila pneumoniae Not Detected (Not Detect); Coronavirus 229E Not Detected (Not Detect); Coronavirus HKU1 Not Detected (Not Detect); Coronavirus NL63 Not Detected (Not Detect); Coronavirus OC43 Not Detected (Not Detect); Human Metapneumovirus Not Detected (Not Detect); Human Rhinovirus/Enterovirus Not Detected (Not Detect); Influenza A Subtype 2009 H1 Not Detected (Not Detect); Influenza B Not Detected (Not Detect); Mycoplasma pneumoniae Not Detected (Not Detect); Parainfluenza Virus 1 Not Detected (Not Detect); Parainfluenza Virus 2 Not Detected (Not Detect); Parainfluenza Virus 3 Not Detected (Not Detect); Parainfluenza Virus 4 Not Detected (Not Detect); Respiratory Syncytial Virus Not Detected (Not Detect)
[2020-04-11 12:31] LABS: SARS-CoV-2 DETECTED (Not Detect)
[2020-04-11] MEDS ORDERED: acetaZOLAMIDE 250 MG TABLET PO SCH (21:00)
== END 2020-04-11 14:42 | DRG 291 ==
LOC: 3NENU 12:16 → EMEROOARM 12:16 → 3NENU 15:51 → SUATTDRO 04-04 14:48 → 3BNU 04-07 06:38
PROVIDERS: ADMIT Internal Medicine; ATTEND Internal Medicine

== ENCOUNTER 2020-04-12 17:37 | Inpatient (IN) ==
[2020-04-12] MEDS ORDERED: Naloxone 0.4 MG/ML INJ IVP PRN (21:12)
[2020-04-12] MEDS ORDERED: *HR* Dextrose 50 % in Water (Vial) 50 ML VIAL IVP PRN (21:37)
[2020-04-12] MEDS ORDERED: Dextrose Gel 15 GM/37.5 ML TUBE PO PRN ×2 (21:37)
[2020-04-12] MEDS ORDERED: D5% in Water 1,000 ML IVC PRN (21:37)
[2020-04-12] MEDS ORDERED: Insulin DETEMIR 100 UNIT/ML X5UNITS SUBQ SCH (21:38)
[2020-04-12] MEDS: Insulin LISPRO 300 UNITS/3 ML VIAL SUBQ SCH (22:19)
[2020-04-13 02:52] LABS: Calcium 9.1 mg/dL (8.6-10.3); Potassium 4.2 mEq/L (3.5-5.1)
[2020-04-13 02:56] LABS: Basophils % 0.1 %; Hematocrit 29.7 % (37.5-50.1); Immature Granulocytes % 0.1 % (0-4); Lymphocytes # 0.4 K/mcL (0.6-4.6); Lymphocytes % 5.8 %; Mean Corpuscular HGB Conc 30.3 g/dL (31.6-35.5); Mean Corpuscular Hemoglobin 25.3 pg (28.0-33.3); Mean Corpuscular Volume 83.4 fL (83.0-100.0); Mean Platelet Volume 11.4 fL (9.4-12.4); Monocytes # 0.3 K/mcL (0.0-1.3); Monocytes % 4.5 %; Neutrophils # 6.8 K/mcL (1.6-8.9); Platelet Count 219 K/mcL (140-400); Red Blood Count 3.56 M/mcL (4.19-5.50); Red Cell Distribution Width 17.3 % (11.5-14.5); Segmented Neutrophils % 89.5 %; White Blood Count 7.6 K/mcL (4.3-11.1)
[2020-04-13 08:37] LABS: VBG HCO3 35 mEq/L (21-27); VBG PCO2 64 mmHg (41-51); VBG PH 7.34 pH Units (7.32-7.42); VBG PO2 52 mmHg (25-50)
[2020-04-13] MEDS: Insulin LISPRO 300 UNITS/3 ML VIAL SUBQ SCH ×4 (08:42→21:15)
[2020-04-13] MEDS: Metoprolol XL (24 HR) Succ 25 MG TAB.ER.24H PO SCH (08:42)
[2020-04-13] MEDS: Insulin DETEMIR 100 UNIT/ML X5UNITS SUBQ SCH ×2 (08:43→21:14)
[2020-04-13] MEDS ORDERED: Aspirin 81 MG TAB.CHEW PO SCH (09:00)
[2020-04-13] MEDS ORDERED: 0.9 % Sodium Chloride 500 ML IVC ONE (11:26)
[2020-04-13] MEDS ORDERED: Insulin LISPRO 300 UNITS/3 ML VIAL SUBQ ONE (12:01)
[2020-04-13] MEDS ORDERED: Insulin DETEMIR 100 UNIT/ML X5UNITS SUBQ ONE (12:01)
[2020-04-13] MEDS ORDERED: *HR* Heparin 5,000 UNIT/ML VIAL IVP PRN ×2 (12:20)
[2020-04-13] MEDS ORDERED: Heparin 25,000UNIT/250ML 1/2NS 25,000 UNIT/250 ML IV.SOLN IVC SCH (12:30)
[2020-04-13 13:00] LABS: Hematocrit 29.4 % (37.5-50.1); Hemoglobin 9.1 g/dL (12.9-16.9); Mean Corpuscular Hemoglobin 25.3 pg (28.0-33.3); Mean Corpuscular Volume 81.7 fL (83.0-100.0); Mean Platelet Volume 10.7 fL (9.4-12.4); Platelet Count 214 K/mcL (140-400); Red Cell Distribution Width 17.2 % (11.5-14.5); White Blood Count 8.1 K/mcL (4.3-11.1)
[2020-04-13 13:19] LABS: Ethanol < 10 mg/dL (Less than 10)
[2020-04-13 13:25] LABS: INR 2.8; Prothrombin Time 31.8 Seconds (9.4-12.1)
[2020-04-13 13:29] LABS: Heparin anti-factor XA UFH > 2.00 IU/mL (0.30-0.70)
[2020-04-13 13:41] LABS: Activated Partial Thrombo Time 31.7 Seconds (26.0-36.0)
[2020-04-13] MEDS: Heparin 25,000UNIT/250ML 1/2NS 25,000 UNIT/250 ML IV.SOLN IVC SCH (13:54)
[2020-04-13 14:02] LABS: Alanine Aminotransferase 16 Units/L (7-52); Albumin 3.4 g/dL (3.5-5.7); Alkaline Phosphatase 111 Units/L (34-104); Aspartate Amino Transferase 33 Units/L (13-39); Bilirubin,Direct 0.2 mg/dL (0.0-0.2); Bilirubin,Indirect 0.4 mg/dL (0.0-1.0); Bilirubin,Total 0.6 mg/dL (0.3-1.0); Digoxin 1.4 ng/mL (0.8-2.0); Globulin 3.3 g/dL (2.4-3.5); Total Protein 6.7 g/dL (6.4-8.9)
[2020-04-13 14:37] LABS: Amphetamine Screen,Urine Negative ng/mL (Cutoff=1000); Barbiturate Screen,Urine Negative ng/mL (Cutoff=200); Benzodiazepines Screen,Urine Negative ng/mL (Cutoff=200); Cannabinoid Screen,Urine Negative ng/mL (Cutoff = 50); Cocaine Screen,Urine Negative ng/mL (Cutoff= 300); Opiate Screen,Urine Negative ng/mL (Cutoff=300); Phencyclidine Screen,Urine Negative ng/mL (Cutoff=25)
[2020-04-13] MEDS ORDERED: Apixaban 5 MG TABLET PO SCH (21:00)
[2020-04-13] MEDS: *HR* Amiodarone 200 MG TABLET PO SCH (21:13)
[2020-04-13] MEDS: Menthol 9.1 MG LOZENGE PO PRN (22:03)
[2020-04-14] MEDS: Menthol 9.1 MG LOZENGE PO PRN (01:45)
[2020-04-14] MEDS: Heparin 25,000UNIT/250ML 1/2NS 25,000 UNIT/250 ML IV.SOLN IVC SCH (04:19)
[2020-04-14 05:10] LABS: Mean Corpuscular Volume 80.6 fL (83.0-100.0); Platelet Count 251 K/mcL (140-400); Red Cell Distribution Width 17.3 % (11.5-14.5); White Blood Count 10.2 K/mcL (4.3-11.1)
[2020-04-14 05:28] LABS: Calcium 9.1 mg/dL (8.6-10.3); Magnesium 2.1 mg/dL (1.6-2.6); Potassium 4.2 mEq/L (3.5-5.1)
[2020-04-14] MEDS: Insulin LISPRO 300 UNITS/3 ML VIAL SUBQ SCH ×3 (07:09→16:20)
[2020-04-14] MEDS ORDERED: 0.9 % Sodium Chloride 1,000 ML IVC SCH (07:30)
[2020-04-14] MEDS: Metoprolol XL (24 HR) Succ 25 MG TAB.ER.24H PO SCH (07:54)
[2020-04-14] MEDS: *HR* Amiodarone 200 MG TABLET PO SCH (07:54)
[2020-04-14] MEDS: Insulin DETEMIR 100 UNIT/ML X5UNITS SUBQ SCH (08:11)
[2020-04-14] MEDS ORDERED: levoFLOXacin 750 MG TABLET PO SCH (09:15)
[2020-04-14] MEDS ORDERED: Ipratropium/Albuterol Neb 3 ML IH PRN (11:28)
[2020-04-14 15:20] VITALS: BP 101/61
== END 2020-04-14 17:29 | disposition left against medical advice (07) | DRG 280 ==
LOC: INTOOBSV 20:28 → 2ANU 20:28 → SUATTDRO 20:28
PROVIDERS: ADMIT Internal Medicine; ATTEND Internal Medicine

== ENCOUNTER 2020-08-23 08:12 | Inpatient (IN) ==
[2020-08-23] MEDS ORDERED: Ipratropium/Albuterol Neb 3 ML IH ONE (08:48)
[2020-08-23] MEDS ORDERED: methylPREDNISolone 125 MG/2 ML VIAL IVP ONE (08:48)
[2020-08-23 09:26] LABS: Basophils % 0.3 %; Eosinophils # 0.1 K/mcL (0.0-0.6); Eosinophils % 1.1 %; Hemoglobin 11.3 g/dL (12.9-16.9); Immature Granulocytes % 0.2 % (0-4); Lymphocytes # 1.1 K/mcL (0.6-4.6); Lymphocytes % 16.9 %; Mean Corpuscular HGB Conc 30.5 g/dL (31.6-35.5); Mean Corpuscular Hemoglobin 25.1 pg (28.0-33.3); Monocytes # 0.6 K/mcL (0.0-1.3); Monocytes % 9.4 %; Neutrophils # 4.8 K/mcL (1.6-8.9); Platelet Count 189 K/mcL (140-400); Red Blood Count 4.51 M/mcL (4.19-5.50); Red Cell Distribution Width 18.4 % (11.5-14.5); Segmented Neutrophils % 72.1 %; White Blood Count 6.6 K/mcL (4.3-11.1)
[2020-08-23 09:54] LABS: BUN/Creatinine Ratio 19 (6-26); Blood Urea Nitrogen 19 mg/dL (8-23); Calcium 9.1 mg/dL (8.6-10.3); Carbon Dioxide 43 mEq/L (23-29); Chloride 93 mEq/L (98-107); Glucose 103 mg/dL (70-105); Osmolality,Calculated 297 (280-300); Potassium 3.3 mEq/L (3.5-5.1); Sodium 142 mEq/L (136-145); Troponin I 0.13 ng/mL (< 0.04); eGFR For African Americans > 60 (> 60); eGFR For Non-African Americans > 60 (> 60)
[2020-08-23 10:23] LABS: Bilirubin,Urine Negative (Negative); Blood,Urine Small (Negative); Clarity,Urine Clear (Clear); Color,Urine Yellow (Yellow); Glucose,Urine (UA) Normal (Normal); Ketones,Urine Negative (Negative); Leukocyte Esterase,Urine Negative (Negative); Nitrite,Urine Negative (Negative); Protein,Urine >=300 mg/dL (Neg-Trace); Specific Gravity,Urine 1.021 (1.010-1.025); Squamous Epithelial Cell,Urine Few per hpf (None-Few); WBC,Urine 0-3 per hpf (0-3)
[2020-08-23] MEDS ORDERED: Furosemide 40 MG/4 ML VIAL IVP ONE (10:59)
[2020-08-23] MEDS ORDERED: Aspirin 81 MG TAB.CHEW PO ONE (11:18)
[2020-08-23 11:37] LABS: ABG Base Excess 13 mEq/L (-2 to 3); ABG HCO3 40 mEq/L (21-27); ABG Oxygen Saturation 91 % (95-98); ABG PCO2 63 mmHg (35-45); ABG PH 7.41 pH Units (7.32-7.45); ABG PO2 63 mmHg (85-104); ABG TCO2 42 mEq/L (20-26)
[2020-08-23] MEDS ORDERED: Melatonin 3 MG TABLET PO PRN (13:49)
[2020-08-23] MEDS ORDERED: Naloxone 0.4 MG/ML INJ IVP PRN (13:49)
[2020-08-23] MEDS ORDERED: Ondansetron 4 MG/2 ML VIAL IVP PRN (13:49)
[2020-08-23] MEDS ORDERED: Nitroglycerin 0.4 MG TAB.SUBL SL PRN (13:57)
[2020-08-23] MEDS ORDERED: Isovue-370 500 ML BOTTLE IVP ONE (14:16)
[2020-08-23] MEDS ORDERED: Perflutren Lipid Microsphere 1.3 ML in 0.9 % Sodium Chloride 8.7 ML IVP PRN (14:16)
[2020-08-23] MEDS ORDERED: *HR* Dextrose 50 % in Water (Vial) 50 ML VIAL IVP PRN (14:27)
[2020-08-23] MEDS ORDERED: D5% in Water 1,000 ML IVC PRN (14:27)
[2020-08-23] MEDS ORDERED: Dextrose Gel 15 GM/37.5 ML TUBE PO PRN ×2 (14:27)
[2020-08-23] MEDS: *HR* Enoxaparin 100 MG/ML SYRINGE SQ SCH (16:31)
[2020-08-23] MEDS: MethylPREDNISolone 40 MG/ML VIAL IVP SCH (16:31)
[2020-08-23] MEDS: Ipratropium/Albuterol Neb 3 ML IH SCH ×3 (16:33→23:00)
[2020-08-23] MEDS: Insulin LISPRO 300 UNITS/3 ML VIAL SUBQ SCH (16:34)
[2020-08-23] MEDS: Pantoprazole 40 MG VIAL IVP SCH (16:35)
[2020-08-23] MEDS ORDERED: Bumetanide 1 MG/4 ML VIAL IVP SCH (17:00)
[2020-08-23 17:11] LABS: INR 1.7; Prothrombin Time 18.9 Seconds (9.4-12.1)
[2020-08-23 17:26] LABS: Amphetamine Screen,Urine Negative ng/mL (Cutoff=1000); Barbiturate Screen,Urine Negative ng/mL (Cutoff=200); Benzodiazepines Screen,Urine Negative ng/mL (Cutoff=200); Cannabinoid Screen,Urine Negative ng/mL (Cutoff = 50); Cocaine Screen,Urine Negative ng/mL (Cutoff= 300); Opiate Screen,Urine Negative ng/mL (Cutoff=300); Phencyclidine Screen,Urine Negative ng/mL (Cutoff=25)
[2020-08-23 18:12] LABS: Adenovirus Not Detected (Not Detect); Bordetella Pertussis Not Detected (Not Detect); Chlamydophila pneumoniae Not Detected (Not Detect); Coronavirus 229E Not Detected (Not Detect); Coronavirus HKU1 Not Detected (Not Detect); Coronavirus NL63 Not Detected (Not Detect); Coronavirus OC43 Not Detected (Not Detect); Human Metapneumovirus Not Detected (Not Detect); Human Rhinovirus/Enterovirus Not Detected (Not Detect); Influenza A Subtype 2009 H1 Not Detected (Not Detect); Influenza B Not Detected (Not Detect); Mycoplasma pneumoniae Not Detected (Not Detect); Parainfluenza Virus 1 Not Detected (Not Detect); Parainfluenza Virus 2 Not Detected (Not Detect); Parainfluenza Virus 3 Not Detected (Not Detect); Parainfluenza Virus 4 Not Detected (Not Detect); Respiratory Syncytial Virus Not Detected (Not Detect); SARS-CoV-2 Not Detected (Not Detect)
[2020-08-23] MEDS: Bumetanide 1 MG/4 ML VIAL IVP SCH (21:59)
[2020-08-24] MEDS: Insulin LISPRO 300 UNITS/3 ML VIAL SUBQ SCH ×5 (01:16→21:43)
[2020-08-24] MEDS: MethylPREDNISolone 40 MG/ML VIAL IVP SCH ×2 (01:16→09:55)
[2020-08-24] MEDS: Ipratropium/Albuterol Neb 3 ML IH SCH ×6 (03:19→23:43)
[2020-08-24 06:35] LABS: Hematocrit 37.9 % (37.5-50.1); Hemoglobin 11.4 g/dL (12.9-16.9); Immature Granulocytes % 0.2 % (0-4); Lymphocytes # 0.2 K/mcL (0.6-4.6); Lymphocytes % 5.9 %; Mean Corpuscular HGB Conc 30.1 g/dL (31.6-35.5); Mean Corpuscular Hemoglobin 24.5 pg (28.0-33.3); Mean Corpuscular Volume 81.5 fL (83.0-100.0); Monocytes # 0.2 K/mcL (0.0-1.3); Monocytes % 3.7 %; Neutrophils # 3.7 K/mcL (1.6-8.9); Platelet Count 181 K/mcL (140-400); Red Blood Count 4.65 M/mcL (4.19-5.50); Red Cell Distribution Width 18.6 % (11.5-14.5); Segmented Neutrophils % 90.2 %; White Blood Count 4.1 K/mcL (4.3-11.1)
[2020-08-24 06:56] LABS: BUN/Creatinine Ratio 24 (6-26); Blood Urea Nitrogen 21 mg/dL (8-23); Calcium 8.6 mg/dL (8.6-10.3); Carbon Dioxide 38 mEq/L (23-29); Chloride 89 mEq/L (98-107); Chol/HDL Ratio 4.3 (0-4.9); Cholesterol 145 mg/dL (< 200); Glucose 300 mg/dL (70-105); HDL Cholesterol 34 mg/dL (40-59); LDL Cholesterol,Calculated 94 mg/dL (< 100); Osmolality,Calculated 302 (280-300); Potassium 3.8 mEq/L (3.5-5.1); Sodium 139 mEq/L (136-145); Triglycerides 85 mg/dL (< 150); eGFR For African Americans > 60 (> 60); eGFR For Non-African Americans > 60 (> 60)
[2020-08-24] MEDS: Bumetanide 1 MG/4 ML VIAL IVP SCH ×2 (09:54→17:18)
[2020-08-24] MEDS: Pantoprazole 40 MG VIAL IVP SCH (09:55)
[2020-08-24] MEDS: *HR* Enoxaparin 100 MG/ML SYRINGE SQ SCH ×2 (09:55→17:18)
[2020-08-24] MEDS: Insulin DETEMIR 100 UNIT/ML X5UNITS SUBQ SCH ×2 (11:46→21:43)
[2020-08-25 03:17] LABS: Hematocrit 36.3 % (37.5-50.1); Hemoglobin 10.7 g/dL (12.9-16.9); Immature Granulocytes % 0.2 % (0-4); Immature Platelets 12.7 % (1.1-6.1); Lymphocytes # 0.3 K/mcL (0.6-4.6); Mean Corpuscular HGB Conc 29.5 g/dL (31.6-35.5); Mean Corpuscular Hemoglobin 24.2 pg (28.0-33.3); Mean Corpuscular Volume 82.1 fL (83.0-100.0); Monocytes # 0.7 K/mcL (0.0-1.3); Monocytes % 6.1 %; Platelet Count 179 K/mcL (140-400); Red Blood Count 4.42 M/mcL (4.19-5.50); Red Cell Distribution Width 18.8 % (11.5-14.5); Segmented Neutrophils % 90.7 %; White Blood Count 10.6 K/mcL (4.3-11.1)
[2020-08-25 03:23] LABS: Neutrophils # 9.6 K/mcL (1.6-8.9)
[2020-08-25] MEDS: Ipratropium/Albuterol Neb 3 ML IH SCH ×6 (03:53→23:49)
[2020-08-25 04:12] LABS: BUN/Creatinine Ratio 29 (6-26); Blood Urea Nitrogen 38 mg/dL (8-23); Calcium 8.6 mg/dL (8.6-10.3); Carbon Dioxide 39 mEq/L (23-29); Chloride 88 mEq/L (98-107); Glucose 515 mg/dL (70-105); Osmolality,Calculated 312 (280-300); Potassium 4.3 mEq/L (3.5-5.1); Sodium 135 mEq/L (136-145); eGFR For African Americans > 60 (> 60); eGFR For Non-African Americans 56 (> 60)
[2020-08-25] MEDS: *HR* Enoxaparin 100 MG/ML SYRINGE SQ SCH (05:35)
[2020-08-25] MEDS ORDERED: Insulin Human Regular 10 UNIT in 0.9 % Sodium Chloride 10 ML IV ONE (07:24)
[2020-08-25] MEDS: Insulin LISPRO 300 UNITS/3 ML VIAL SUBQ SCH ×8 (08:55→21:23)
[2020-08-25] MEDS: Pantoprazole 40 MG VIAL IVP SCH (08:58)
[2020-08-25] MEDS: Bumetanide 1 MG/4 ML VIAL IVP SCH ×2 (08:58→17:11)
[2020-08-25] MEDS: predniSONE 20 MG TABLET PO SCH (08:59)
[2020-08-25] MEDS: Metoprolol XL (24 HR) Succ 25 MG TAB.ER.24H PO SCH (09:00)
[2020-08-25] MEDS: *HR* Digoxin 0.125 MG TABLET PO SCH (09:00)
[2020-08-25] MEDS: Aspirin 81 MG TAB.CHEW PO SCH (09:00)
[2020-08-25] MEDS: Insulin DETEMIR 100 UNIT/ML X5UNITS SUBQ SCH ×2 (09:17→21:29)
[2020-08-25] MEDS: lisinopriL 5 MG TABLET PO SCH (11:28)
[2020-08-25] MEDS: Spironolactone 12.5 MG TABLET PO SCH (11:28)
[2020-08-25] MEDS: Apixaban 5 MG TABLET PO SCH (21:28)
[2020-08-26] MEDS: Ipratropium/Albuterol Neb 3 ML IH SCH ×6 (03:51→23:41)
[2020-08-26 03:53] LABS: Lymphocytes % 2.9 %
[2020-08-26 03:55] LABS: Basophils % 0.1 %; Hematocrit 35.8 % (37.5-50.1); Hemoglobin 10.5 g/dL (12.9-16.9); Immature Granulocytes % 0.3 % (0-4); Immature Platelets 11.5 % (1.1-6.1); Lymphocytes # 0.3 K/mcL (0.6-4.6); Mean Corpuscular HGB Conc 29.3 g/dL (31.6-35.5); Mean Corpuscular Hemoglobin 24.2 pg (28.0-33.3); Mean Corpuscular Volume 82.7 fL (83.0-100.0); Monocytes # 0.3 K/mcL (0.0-1.3); Monocytes % 2.9 %; Neutrophils # 8.7 K/mcL (1.6-8.9); Platelet Count 138 K/mcL (140-400); Red Blood Count 4.33 M/mcL (4.19-5.50); Red Cell Distribution Width 18.4 % (11.5-14.5); Segmented Neutrophils % 93.8 %; White Blood Count 9.3 K/mcL (4.3-11.1)
[2020-08-26 04:13] LABS: BUN/Creatinine Ratio 39 (6-26); Blood Urea Nitrogen 37 mg/dL (8-23); Calcium 8.7 mg/dL (8.6-10.3); Carbon Dioxide 40 mEq/L (23-29); Chloride 92 mEq/L (98-107); Glucose 172 mg/dL (70-105); Osmolality,Calculated 295 (280-300); Potassium 4.1 mEq/L (3.5-5.1); Sodium 136 mEq/L (136-145); eGFR For African Americans > 60 (> 60); eGFR For Non-African Americans > 60 (> 60)
[2020-08-26] MEDS: Insulin LISPRO 300 UNITS/3 ML VIAL SUBQ SCH ×7 (07:47→20:00)
[2020-08-26] MEDS: Spironolactone 12.5 MG TABLET PO SCH (08:02)
[2020-08-26] MEDS: predniSONE 20 MG TABLET PO SCH (08:02)
[2020-08-26] MEDS: Metoprolol XL (24 HR) Succ 25 MG TAB.ER.24H PO SCH (08:02)
[2020-08-26] MEDS: Aspirin 81 MG TAB.CHEW PO SCH (08:02)
[2020-08-26] MEDS: lisinopriL 5 MG TABLET PO SCH (08:05)
[2020-08-26] MEDS: Bumetanide 1 MG/4 ML VIAL IVP SCH ×2 (09:04→17:28)
[2020-08-26] MEDS: Insulin DETEMIR 100 UNIT/ML X5UNITS SUBQ SCH ×2 (09:05→20:01)
[2020-08-26] MEDS: *HR* Digoxin 0.125 MG TABLET PO SCH (09:05)
[2020-08-26] MEDS: Pantoprazole 40 MG VIAL IVP SCH (09:05)
[2020-08-26] MEDS: Apixaban 5 MG TABLET PO SCH ×2 (09:05→20:00)
[2020-08-26] MEDS: Artificial Tears SOLN 15 ML BOTTLE BOTH EYES SCH (20:00)
[2020-08-27 02:31] LABS: Hematocrit 34.9 % (37.5-50.1); Hemoglobin 10.8 g/dL (12.9-16.9); Immature Granulocytes % 0.4 % (0-4); Lymphocytes # 0.5 K/mcL (0.6-4.6); Lymphocytes % 6.1 %; Mean Corpuscular HGB Conc 30.9 g/dL (31.6-35.5); Mean Corpuscular Hemoglobin 25.3 pg (28.0-33.3); Mean Corpuscular Volume 81.7 fL (83.0-100.0); Mean Platelet Volume 11.7 fL (9.4-12.4); Monocytes # 0.5 K/mcL (0.0-1.3); Platelet Count 129 K/mcL (140-400); Red Blood Count 4.27 M/mcL (4.19-5.50); Red Cell Distribution Width 18.4 % (11.5-14.5); Segmented Neutrophils % 87.5 %
[2020-08-27 02:53] LABS: BUN/Creatinine Ratio 37 (6-26); Blood Urea Nitrogen 44 mg/dL (8-23); Calcium 8.6 mg/dL (8.6-10.3); Carbon Dioxide 41 mEq/L (23-29); Chloride 90 mEq/L (98-107); Glucose 263 mg/dL (70-105); Osmolality,Calculated 302 (280-300); Sodium 136 mEq/L (136-145); eGFR For African Americans > 60 (> 60); eGFR For Non-African Americans > 60 (> 60)
[2020-08-27] MEDS: Ipratropium/Albuterol Neb 3 ML IH SCH ×6 (03:37→22:56)
[2020-08-27] MEDS ORDERED: acetaZOLAMIDE 250 MG TABLET PO ONE (08:12)
[2020-08-27] MEDS: Insulin LISPRO 300 UNITS/3 ML VIAL SUBQ SCH ×7 (08:48→20:46)
[2020-08-27] MEDS: Bumetanide 1 MG TABLET PO SCH ×2 (08:50→17:06)
[2020-08-27] MEDS: Aspirin 81 MG TAB.CHEW PO SCH (08:51)
[2020-08-27] MEDS: lisinopriL 5 MG TABLET PO SCH (08:52)
[2020-08-27] MEDS: Metoprolol XL (24 HR) Succ 25 MG TAB.ER.24H PO SCH (08:52)
[2020-08-27] MEDS: Apixaban 5 MG TABLET PO SCH ×2 (08:53→20:44)
[2020-08-27] MEDS: *HR* Digoxin 0.125 MG TABLET PO SCH (08:53)
[2020-08-27] MEDS: Spironolactone 12.5 MG TABLET PO SCH (08:53)
[2020-08-27] MEDS: predniSONE 20 MG TABLET PO SCH (08:54)
[2020-08-27] MEDS: Artificial Tears SOLN 15 ML BOTTLE BOTH EYES SCH ×4 (08:56→20:44)
[2020-08-27] MEDS: Insulin DETEMIR 100 UNIT/ML X5UNITS SUBQ SCH ×2 (09:40→20:45)
[2020-08-28 03:30] LABS: BUN/Creatinine Ratio 44 (6-26); Blood Urea Nitrogen 48 mg/dL (8-23); Calcium 8.8 mg/dL (8.6-10.3); Carbon Dioxide 41 mEq/L (23-29); Chloride 90 mEq/L (98-107); Glucose 336 mg/dL (70-105); Osmolality,Calculated 306 (280-300); Potassium 4.3 mEq/L (3.5-5.1); Sodium 135 mEq/L (136-145); eGFR For African Americans > 60 (> 60); eGFR For Non-African Americans > 60 (> 60)
[2020-08-28] MEDS: Ipratropium/Albuterol Neb 3 ML IH SCH ×3 (03:32→11:21)
[2020-08-28] MEDS: Metoprolol XL (24 HR) Succ 25 MG TAB.ER.24H PO SCH (07:49)
[2020-08-28] MEDS: Insulin LISPRO 300 UNITS/3 ML VIAL SUBQ SCH ×4 (07:49→11:43)
[2020-08-28] MEDS: lisinopriL 5 MG TABLET PO SCH (07:49)
[2020-08-28] MEDS: Bumetanide 1 MG TABLET PO SCH (07:50)
[2020-08-28] MEDS: Spironolactone 12.5 MG TABLET PO SCH (07:50)
[2020-08-28] MEDS: Aspirin 81 MG TAB.CHEW PO SCH (07:50)
[2020-08-28] MEDS: predniSONE 20 MG TABLET PO SCH (07:50)
[2020-08-28] MEDS: *HR* Digoxin 0.125 MG TABLET PO SCH (07:50)
[2020-08-28] MEDS: Apixaban 5 MG TABLET PO SCH (07:50)
[2020-08-28] MEDS: Insulin DETEMIR 100 UNIT/ML X5UNITS SUBQ SCH (07:54)
[2020-08-28] MEDS: Artificial Tears SOLN 15 ML BOTTLE BOTH EYES SCH ×2 (07:57→11:49)
[2020-08-28 11:48] VITALS: BP 91/60
[2020-08-28 13:48] LABS: Influenza A PCR Negative (Negative); Influenza B PCR Negative (Negative); Resp. Syncytial Virus PCR Negative (Negative); SARS-CoV-2 by PCR (In House) Negative (Negative)
[2020-08-29] MEDS ORDERED: predniSONE 20 MG TABLET PO SCH (09:00)
== END 2020-08-28 14:42 | DRG 280 ==
LOC: EMEROOARM 08:12 → 2NENU 08:12 → SUATTDRO 14:48 → 2NENU 16:16
PROVIDERS: ADMIT Internal Medicine; ATTEND Internal Medicine

== ENCOUNTER 2020-09-08 04:34 | Inpatient (IN) ==
[2020-09-08] MEDS ORDERED: predniSONE 20 MG TABLET PO ONE (04:42)
[2020-09-08] MEDS ORDERED: Ipratropium/Albuterol Neb 3 ML IH ONE (04:42)
[2020-09-08 05:54] LABS: VBG Ionized Calcium 1.29 mmol/L (1.15-1.35)
[2020-09-08 06:06] LABS: Basophils % 0.1 %; Eosinophils % 0.5 %; Hemoglobin 11.7 g/dL (12.9-16.9); Immature Granulocytes % 0.2 % (0-4); Lymphocytes # 0.7 K/mcL (0.6-4.6); Lymphocytes % 8.5 %; Mean Corpuscular HGB Conc 30.8 g/dL (31.6-35.5); Mean Corpuscular Hemoglobin 25.6 pg (28.0-33.3); Mean Corpuscular Volume 83.2 fL (83.0-100.0); Mean Platelet Volume 12.1 fL (9.4-12.4); Monocytes # 0.5 K/mcL (0.0-1.3); Monocytes % 6.3 %; Neutrophils # 7.3 K/mcL (1.6-8.9); Platelet Count 160 K/mcL (140-400); Red Blood Count 4.57 M/mcL (4.19-5.50); Segmented Neutrophils % 84.4 %; White Blood Count 8.6 K/mcL (4.3-11.1)
[2020-09-08 06:15] LABS: BUN/Creatinine Ratio 31 (6-26); Blood Urea Nitrogen 31 mg/dL (8-23); Calcium 9.3 mg/dL (8.6-10.3); Carbon Dioxide 33 mEq/L (23-29); Chloride 96 mEq/L (98-107); Creatine Kinase 58 Units/L (30-223); Glucose 412 mg/dL (70-105); Osmolality,Calculated 304 (280-300); Potassium 4.9 mEq/L (3.5-5.1); Sodium 135 mEq/L (136-145); eGFR For African Americans > 60 (> 60); eGFR For Non-African Americans > 60 (> 60)
[2020-09-08 06:20] LABS: Troponin I 0.17 ng/mL (< 0.04)
[2020-09-08 06:37] LABS: Bacteria,Urine Few per hpf (None-Few); Bilirubin,Urine Small (Negative); Blood,Urine Large (Negative); Clarity,Urine Turbid (Clear); Color,Urine Yellow (Yellow); Glucose,Urine (UA) 500 mg/dL (Normal); Hyaline Casts,Urine Few per lpf (None Seen); Ketones,Urine 10 mg/dL (Negative); Leukocyte Esterase,Urine Negative (Negative); Mucus,Urine Few per lpf (None-Few); Nitrite,Urine Negative (Negative); Protein,Urine >=600 mg/dL (Neg-Trace); RBC,Urine 50-100 per hpf (0-3); Squamous Epithelial Cell,Urine Few per hpf (None-Few); WBC,Urine 15-30 per hpf (0-3)
[2020-09-08] MEDS ORDERED: cefTRIAXone 1,000 MG in Water for inj. (sterile) 10 ML IVP STA (07:19)
[2020-09-08] MEDS ORDERED: Naloxone 0.4 MG/ML INJ IVP PRN (08:11)
[2020-09-08] MEDS ORDERED: Dextrose Gel 15 GM/37.5 ML TUBE PO PRN ×2 (08:42)
[2020-09-08] MEDS ORDERED: *HR* Dextrose 50 % in Water (Vial) 50 ML VIAL IVP PRN (08:42)
[2020-09-08] MEDS ORDERED: D5% in Water 1,000 ML IVC PRN (08:42)
[2020-09-08] MEDS: Insulin DETEMIR 100 UNIT/ML X5UNITS SUBQ SCH ×2 (09:29→21:12)
[2020-09-08] MEDS: Insulin LISPRO 300 UNITS/3 ML VIAL SUBQ SCH ×4 (11:48→21:15)
[2020-09-08] MEDS ORDERED: Insulin Human Regular 10 UNIT in 0.9 % Sodium Chloride 10 ML IV ONE (12:00)
[2020-09-08] MEDS: Bumetanide 1 MG TABLET PO SCH (17:15)
[2020-09-08] MEDS: Apixaban 5 MG TABLET PO SCH (21:12)
[2020-09-09 01:54] LABS: Eosinophils % 0.1 %; Hematocrit 34.8 % (37.5-50.1); Hemoglobin 10.2 g/dL (12.9-16.9); Immature Granulocytes % 0.2 % (0-4); Lymphocytes # 0.5 K/mcL (0.6-4.6); Lymphocytes % 5.8 %; Mean Corpuscular HGB Conc 29.3 g/dL (31.6-35.5); Mean Corpuscular Hemoglobin 24.3 pg (28.0-33.3); Mean Corpuscular Volume 83.1 fL (83.0-100.0); Mean Platelet Volume 11.9 fL (9.4-12.4); Monocytes # 0.7 K/mcL (0.0-1.3); Monocytes % 7.5 %; Neutrophils # 7.5 K/mcL (1.6-8.9); Platelet Count 142 K/mcL (140-400); Red Blood Count 4.19 M/mcL (4.19-5.50); Segmented Neutrophils % 86.4 %; White Blood Count 8.6 K/mcL (4.3-11.1)
[2020-09-09 02:03] LABS: BUN/Creatinine Ratio 37 (6-26); Blood Urea Nitrogen 36 mg/dL (8-23); Calcium 8.7 mg/dL (8.6-10.3); Carbon Dioxide 32 mEq/L (23-29); Chloride 98 mEq/L (98-107); Glucose 316 mg/dL (70-105); Osmolality,Calculated 302 (280-300); Potassium 4.6 mEq/L (3.5-5.1); Sodium 136 mEq/L (136-145); eGFR For African Americans > 60 (> 60); eGFR For Non-African Americans > 60 (> 60)
[2020-09-09] MEDS: Aspirin 81 MG TAB.CHEW PO SCH (08:39)
[2020-09-09] MEDS: Metoprolol XL (24 HR) Succ 25 MG TAB.ER.24H PO SCH (08:39)
[2020-09-09] MEDS: Apixaban 5 MG TABLET PO SCH ×2 (08:39→20:10)
[2020-09-09] MEDS: *HR* Digoxin 0.125 MG TABLET PO SCH (08:39)
[2020-09-09] MEDS: Insulin LISPRO 300 UNITS/3 ML VIAL SUBQ SCH ×7 (08:40→21:10)
[2020-09-09] MEDS: Spironolactone 12.5 MG TABLET PO SCH (08:40)
[2020-09-09] MEDS: Bumetanide 1 MG TABLET PO SCH ×2 (08:40→17:20)
[2020-09-09] MEDS: Insulin DETEMIR 100 UNIT/ML X5UNITS SUBQ SCH ×2 (08:41→21:15)
[2020-09-09] MEDS ORDERED: lisinopriL 5 MG TABLET PO SCH (09:00)
[2020-09-09] MEDS ORDERED: 0.9 % Sodium Chloride 250 ML IVC ONE (15:31)
[2020-09-09] MEDS: Ipratropium/Albuterol Neb 3 ML IH PRN (16:42)
[2020-09-10] MEDS: Ipratropium/Albuterol Neb 3 ML IH PRN (00:19)
[2020-09-10] MEDS: Metoprolol XL (24 HR) Succ 25 MG TAB.ER.24H PO SCH (09:11)
[2020-09-10] MEDS: Apixaban 5 MG TABLET PO SCH ×2 (09:11→21:35)
[2020-09-10] MEDS: Bumetanide 1 MG TABLET PO SCH ×2 (09:11→16:23)
[2020-09-10] MEDS: *HR* Digoxin 0.125 MG TABLET PO SCH (09:11)
[2020-09-10] MEDS: Insulin LISPRO 300 UNITS/3 ML VIAL SUBQ SCH ×6 (09:11→20:59)
[2020-09-10] MEDS: Spironolactone 12.5 MG TABLET PO SCH (09:11)
[2020-09-10] MEDS: Aspirin 81 MG TAB.CHEW PO SCH (09:11)
[2020-09-10] MEDS: Insulin DETEMIR 100 UNIT/ML X5UNITS SUBQ SCH (09:15)
[2020-09-10 10:35] LABS: Basophils % 0.1 %; Mean Corpuscular HGB Conc 29.8 g/dL (31.6-35.5)
[2020-09-10 10:37] LABS: Eosinophils % 0.2 %; Hematocrit 34.9 % (37.5-50.1); Hemoglobin 10.4 g/dL (12.9-16.9); Immature Granulocytes % 0.3 % (0-4); Immature Platelets 7.1 % (1.1-6.1); Lymphocytes # 0.5 K/mcL (0.6-4.6); Lymphocytes % 5.2 %; Mean Corpuscular Hemoglobin 24.5 pg (28.0-33.3); Mean Corpuscular Volume 82.1 fL (83.0-100.0); Mean Platelet Volume 11.3 fL (9.4-12.4); Monocytes # 0.5 K/mcL (0.0-1.3); Monocytes % 4.8 %; Neutrophils # 8.4 K/mcL (1.6-8.9); Platelet Count 141 K/mcL (140-400); Red Blood Count 4.25 M/mcL (4.19-5.50); Red Cell Distribution Width 19.8 % (11.5-14.5); Segmented Neutrophils % 89.4 %; White Blood Count 9.4 K/mcL (4.3-11.1)
[2020-09-10 10:40] LABS: VBG HCO3 32 mEq/L (21-27); VBG PCO2 55 mmHg (41-51); VBG PH 7.37 pH Units (7.32-7.42); VBG PO2 171 mmHg (25-50)
[2020-09-10 10:52] LABS: BUN/Creatinine Ratio 36 (6-26); Blood Urea Nitrogen 40 mg/dL (8-23); Calcium 8.3 mg/dL (8.6-10.3); Carbon Dioxide 28 mEq/L (23-29); Chloride 102 mEq/L (98-107); Glucose 62 mg/dL (70-105); Osmolality,Calculated 294 (280-300); Potassium 4.3 mEq/L (3.5-5.1); Sodium 138 mEq/L (136-145); eGFR For African Americans > 60 (> 60); eGFR For Non-African Americans > 60 (> 60)
[2020-09-10] MEDS ORDERED: Insulin DETEMIR 100 UNIT/ML X5UNITS SUBQ SCH (21:00)
[2020-09-11] MEDS: Ipratropium/Albuterol Neb 3 ML IH PRN ×2 (00:38→21:34)
[2020-09-11 01:17] LABS: Hematocrit 35.2 % (37.5-50.1); Hemoglobin 10.7 g/dL (12.9-16.9); Mean Corpuscular HGB Conc 30.4 g/dL (31.6-35.5); Mean Corpuscular Hemoglobin 24.9 pg (28.0-33.3); Mean Corpuscular Volume 81.9 fL (83.0-100.0); Mean Platelet Volume 11.4 fL (9.4-12.4); Platelet Count 156 K/mcL (140-400); Red Cell Distribution Width 19.9 % (11.5-14.5)
[2020-09-11 01:40] LABS: BUN/Creatinine Ratio 39 (6-26); Blood Urea Nitrogen 42 mg/dL (8-23); Calcium 8.3 mg/dL (8.6-10.3); Carbon Dioxide 31 mEq/L (23-29); Chloride 99 mEq/L (98-107); Glucose 292 mg/dL (70-105); Osmolality,Calculated 305 (280-300); Potassium 4.9 mEq/L (3.5-5.1); Sodium 137 mEq/L (136-145); eGFR For African Americans > 60 (> 60); eGFR For Non-African Americans > 60 (> 60)
[2020-09-11 03:06] LABS: Estimated Average Glucose 298 mg/dl
[2020-09-11] MEDS: *HR* Digoxin 0.125 MG TABLET PO SCH (08:21)
[2020-09-11] MEDS: Aspirin 81 MG TAB.CHEW PO SCH (08:21)
[2020-09-11] MEDS: Metoprolol XL (24 HR) Succ 25 MG TAB.ER.24H PO SCH (08:21)
[2020-09-11] MEDS: Spironolactone 12.5 MG TABLET PO SCH (08:21)
[2020-09-11] MEDS: Bumetanide 1 MG TABLET PO SCH ×2 (08:22→17:11)
[2020-09-11] MEDS: Insulin DETEMIR 100 UNIT/ML X5UNITS SUBQ SCH ×2 (08:22→21:22)
[2020-09-11] MEDS: Insulin LISPRO 300 UNITS/3 ML VIAL SUBQ SCH ×4 (08:22→21:22)
[2020-09-11] MEDS: Apixaban 5 MG TABLET PO SCH ×2 (08:22→21:22)
[2020-09-12] MEDS: Ipratropium/Albuterol Neb 3 ML IH PRN (03:28)
[2020-09-12 06:49] VITALS: BP 115/72; PULSE 62; TEMP 98.4; O2SAT 97
[2020-09-12] MEDS: Metoprolol XL (24 HR) Succ 25 MG TAB.ER.24H PO SCH (08:16)
[2020-09-12] MEDS: *HR* Digoxin 0.125 MG TABLET PO SCH (08:16)
[2020-09-12] MEDS: Bumetanide 1 MG TABLET PO SCH (08:16)
[2020-09-12] MEDS: Spironolactone 12.5 MG TABLET PO SCH (08:16)
[2020-09-12] MEDS: Aspirin 81 MG TAB.CHEW PO SCH (08:16)
[2020-09-12] MEDS: Apixaban 5 MG TABLET PO SCH (08:17)
[2020-09-12] MEDS: Insulin DETEMIR 100 UNIT/ML X5UNITS SUBQ SCH (08:17)
[2020-09-12] MEDS: Insulin LISPRO 300 UNITS/3 ML VIAL SUBQ SCH (08:17)
[2020-09-12] MEDS ORDERED: lisinopriL 5 MG TABLET PO SCH (09:00)
== END 2020-09-12 10:53 | disposition home health service (06) | DRG 280 ==
LOC: CDU 04:34 → EMEROOARM 04:34 → CDU 08:58 → 2ANU 13:47 → SUATTDRO 09-09 15:13
PROVIDERS: ADMIT Internal Medicine; ATTEND Family Medicine

== ENCOUNTER 2020-09-18 19:22 | Inpatient (IN) ==
[2020-09-18] MEDS ORDERED: Ipratropium/Albuterol Neb 3 ML IH ONE (19:37)
[2020-09-18] MEDS ORDERED: methylPREDNISolone 125 MG/2 ML VIAL IVP ONE (19:37)
[2020-09-18 20:04] LABS: Basophils % 0.3 %; Eosinophils % 0.7 %; Hematocrit 32.5 % (37.5-50.1); Immature Granulocytes % 0.2 % (0-4); Lymphocytes # 0.6 K/mcL (0.6-4.6); Lymphocytes % 9.9 %; Mean Corpuscular HGB Conc 30.8 g/dL (31.6-35.5); Mean Corpuscular Hemoglobin 24.8 pg (28.0-33.3); Mean Corpuscular Volume 80.6 fL (83.0-100.0); Mean Platelet Volume 10.8 fL (9.4-12.4); Monocytes # 0.6 K/mcL (0.0-1.3); Monocytes % 10.8 %; Neutrophils # 4.5 K/mcL (1.6-8.9); Platelet Count 200 K/mcL (140-400); Red Blood Count 4.03 M/mcL (4.19-5.50); Red Cell Distribution Width 19.9 % (11.5-14.5); Segmented Neutrophils % 78.1 %; White Blood Count 5.8 K/mcL (4.3-11.1)
[2020-09-18 20:22] LABS: INR 1.7; Prothrombin Time 19.1 Seconds (9.4-12.1)
[2020-09-18 20:27] LABS: Alanine Aminotransferase 13 Units/L (7-52); Albumin 2.8 g/dL (3.5-5.7); Albumin/Globulin Ratio 0.8 (1.1-2.2); Alkaline Phosphatase 164 Units/L (34-104); Aspartate Amino Transferase 12 Units/L (13-39); BUN/Creatinine Ratio 23 (6-26); Bilirubin,Direct 0.3 mg/dL (0.0-0.2); Bilirubin,Indirect 0.6 mg/dL (0.0-1.0); Bilirubin,Total 0.9 mg/dL (0.3-1.0); Blood Urea Nitrogen 31 mg/dL (8-23); Calcium 8.6 mg/dL (8.6-10.3); Carbon Dioxide 33 mEq/L (23-29); Chloride 95 mEq/L (98-107); Globulin 3.5 g/dL (2.4-3.5); Glucose 449 mg/dL (70-105); Osmolality,Calculated 308 (280-300); Potassium 4.2 mEq/L (3.5-5.1); Sodium 136 mEq/L (136-145); Total Protein 6.3 g/dL (6.4-8.9); Troponin I 0.16 ng/mL (< 0.04); eGFR For African Americans > 60 (> 60); eGFR For Non-African Americans 54 (> 60)
[2020-09-18] MEDS ORDERED: Insulin Human Regular 10 UNIT in 0.9 % Sodium Chloride 10 ML IV ONE (21:27)
[2020-09-18] MEDS ORDERED: Furosemide 40 MG/4 ML VIAL IVP ONE (22:07)
[2020-09-18] MEDS ORDERED: cefTRIAXone 2,000 MG in Water for inj. (sterile) 20 ML IVP ONE (22:08)
[2020-09-18] MEDS ORDERED: Azithromycin 500 MG in 0.9 % Sodium Chloride 250 ML IVPB ONE (22:08)
[2020-09-19 00:19] LABS: Adenovirus Not Detected (Not Detect); Coronavirus 229E Not Detected (Not Detect); Coronavirus HKU1 Not Detected (Not Detect); Coronavirus NL63 Not Detected (Not Detect); Coronavirus OC43 Not Detected (Not Detect); Human Metapneumovirus Not Detected (Not Detect); Human Rhinovirus/Enterovirus Not Detected (Not Detect); Influenza A Subtype 2009 H1 Not Detected (Not Detect); Influenza B Not Detected (Not Detect); Parainfluenza Virus 1 Not Detected (Not Detect); Parainfluenza Virus 2 Not Detected (Not Detect); Parainfluenza Virus 3 Not Detected (Not Detect); SARS-CoV-2 Not Detected (Not Detect)
[2020-09-19] MEDS ORDERED: Dextrose Gel 15 GM/37.5 ML TUBE PO PRN ×2 (00:19)
[2020-09-19] MEDS ORDERED: D5% in Water 1,000 ML IVC PRN (00:19)
[2020-09-19] MEDS ORDERED: *HR* Dextrose 50 % in Water (Vial) 50 ML VIAL IVP PRN (00:19)
[2020-09-19 00:20] LABS: Bordetella Pertussis Not Detected (Not Detect); Chlamydophila pneumoniae Not Detected (Not Detect); Mycoplasma pneumoniae Not Detected (Not Detect); Parainfluenza Virus 4 Not Detected (Not Detect); Respiratory Syncytial Virus Not Detected (Not Detect)
[2020-09-19] MEDS ORDERED: Insulin LISPRO 300 UNITS/3 ML VIAL SUBQ SCH ×3 (00:30→07:30)
[2020-09-19 00:48] LABS: ABG Base Excess 9 mEq/L (-2 to 3); ABG HCO3 38 mEq/L (21-27); ABG Oxygen Saturation 97 % (95-98); ABG PCO2 70 mmHg (35-45); ABG PH 7.34 pH Units (7.32-7.45); ABG PO2 96 mmHg (85-104); ABG TCO2 40 mEq/L (20-26)
[2020-09-19] MEDS ORDERED: Acetaminophen 325 MG TABLET PO PRN (01:05)
[2020-09-19] MEDS ORDERED: Naloxone 0.4 MG/ML INJ IVP PRN (01:05)
[2020-09-19] MEDS: Insulin LISPRO 300 UNITS/3 ML VIAL SUBQ SCH ×5 (01:51→20:12)
[2020-09-19 02:05] LABS: Bacteria,Urine Few per hpf (None-Few); Bilirubin,Urine Negative (Negative); Blood,Urine Large (Negative); Clarity,Urine Clear (Clear); Color,Urine Yellow (Yellow); Glucose,Urine (UA) 300 mg/dL (Normal); Hyaline Casts,Urine Few per lpf (None Seen); Ketones,Urine Negative (Negative); Leukocyte Esterase,Urine Negative (Negative); Mucus,Urine Few per lpf (None-Few); Nitrite,Urine Negative (Negative); Protein,Urine >=300 mg/dL (Neg-Trace); RBC,Urine TNTC per hpf (0-3); Specific Gravity,Urine 1.019 (1.010-1.025); Urobilinogen,Urine Normal (Normal)
[2020-09-19 02:19] LABS: Hemoglobin 10.2 g/dL (12.9-16.9); Mean Corpuscular Hemoglobin 24.8 pg (28.0-33.3); Mean Corpuscular Volume 82.7 fL (83.0-100.0); Mean Platelet Volume 10.8 fL (9.4-12.4); Platelet Count 184 K/mcL (140-400); Red Blood Count 4.11 M/mcL (4.19-5.50); White Blood Count 7.5 K/mcL (4.3-11.1)
[2020-09-19 02:40] LABS: BUN/Creatinine Ratio 27 (6-26); Blood Urea Nitrogen 36 mg/dL (8-23); Calcium 8.5 mg/dL (8.6-10.3); Carbon Dioxide 30 mEq/L (23-29); Chloride 96 mEq/L (98-107); Chol/HDL Ratio 5.1 (0-4.9); Cholesterol 159 mg/dL (< 200); Glucose 378 mg/dL (70-105); HDL Cholesterol 31 mg/dL (40-59); Iron 23 mcg/dL (65-175); LDL Cholesterol,Calculated 112 mg/dL (< 100); Magnesium 1.6 mg/dL (1.6-2.6); Osmolality,Calculated 306 (280-300); Potassium 4.7 mEq/L (3.5-5.1); Sodium 136 mEq/L (136-145); Triglycerides 82 mg/dL (< 150); eGFR For African Americans > 60 (> 60); eGFR For Non-African Americans 54 (> 60)
[2020-09-19 02:53] LABS: Thyroid Stimulating Hormone 5.852 mcIU/mL (0.340-5.600)
[2020-09-19 02:59] LABS: Ferritin 157 ng/mL (20-250)
[2020-09-19 03:05] LABS: Folate 9.5 ng/mL (3.0-16.0)
[2020-09-19 03:07] LABS: Estimated Average Glucose 298 mg/dl
[2020-09-19 03:28] LABS: ABG Base Excess 7 mEq/L (-2 to 3); ABG HCO3 35 mEq/L (21-27); ABG Oxygen Saturation 94 % (95-98); ABG PCO2 63 mmHg (35-45); ABG PH 7.35 pH Units (7.32-7.45); ABG PO2 77 mmHg (85-104); ABG TCO2 37 mEq/L (20-26)
[2020-09-19] MEDS ORDERED: *HR* Heparin 5,000 UNIT/ML VIAL SQ SCH (06:00)
[2020-09-19] MEDS ORDERED: Ergocalciferol (VIT D2) 50,000 UNIT (1.25MG) CAP PO SCH (07:30)
[2020-09-19] MEDS: Cyanocobalamin (B-12) 1,000 MCG TABLET PO SCH (08:55)
[2020-09-19] MEDS: methylPREDNISolone 125 MG/2 ML VIAL IVP SCH ×3 (08:55→23:28)
[2020-09-19] MEDS: Aspirin Enteric Coated 81 MG Tablet PO SCH (08:55)
[2020-09-19] MEDS: Spironolactone 25 MG TABLET PO SCH (08:55)
[2020-09-19] MEDS ORDERED: Metoprolol XL (24 HR) Succ 50 MG TAB.ER.24H PO SCH (09:00)
[2020-09-19] MEDS ORDERED: Furosemide 40 MG/4 ML VIAL IVP SCH ×2 (12:54→15:00)
[2020-09-19] MEDS ORDERED: Albumin 25% 25gram/100mL 25 GM/100 ML IV.SOLN IVPB ONE (13:06)
[2020-09-19] MEDS: Apixaban 5 MG TABLET PO SCH (20:12)
[2020-09-19] MEDS: Insulin DETEMIR 100 UNIT/ML X5UNITS SUBQ SCH (20:12)
[2020-09-19] MEDS: Azithromycin 500 MG in 0.9 % Sodium Chloride 250 ML IVPB SCH ×2 (22:50→23:28)
[2020-09-19] MEDS ORDERED: 0.9 % Sodium Chloride 250 ML ONE (23:05)
[2020-09-20 03:50] LABS: Hemoglobin 9.8 g/dL (12.9-16.9); Mean Platelet Volume 11.7 fL (9.4-12.4)
[2020-09-20 03:51] LABS: Hematocrit 32.6 % (37.5-50.1); Mean Corpuscular HGB Conc 30.1 g/dL (31.6-35.5); Mean Corpuscular Hemoglobin 25.3 pg (28.0-33.3); Platelet Count 212 K/mcL (140-400); Red Blood Count 3.88 M/mcL (4.19-5.50); Red Cell Distribution Width 20.2 % (11.5-14.5); White Blood Count 7.4 K/mcL (4.3-11.1)
[2020-09-20 04:10] LABS: Calcium 8.4 mg/dL (8.6-10.3); Potassium 5.1 mEq/L (3.5-5.1)
[2020-09-20] MEDS ORDERED: Insulin LISPRO 300 UNITS/3 ML VIAL SUBQ ONE (04:13)
[2020-09-20] MEDS: Aspirin Enteric Coated 81 MG Tablet PO SCH (08:48)
[2020-09-20] MEDS: Metoprolol XL (24 HR) Succ 25 MG TAB.ER.24H PO SCH (08:48)
[2020-09-20] MEDS: Cyanocobalamin (B-12) 1,000 MCG TABLET PO SCH (08:48)
[2020-09-20] MEDS: methylPREDNISolone 125 MG/2 ML VIAL IVP SCH ×2 (08:48→20:44)
[2020-09-20] MEDS: Apixaban 5 MG TABLET PO SCH ×2 (08:48→20:43)
[2020-09-20] MEDS: Insulin LISPRO 300 UNITS/3 ML VIAL SUBQ SCH ×4 (08:49→20:56)
[2020-09-20] MEDS: Insulin DETEMIR 100 UNIT/ML X5UNITS SUBQ SCH ×2 (08:49→20:57)
[2020-09-20] MEDS ORDERED: *HR* Digoxin 0.125 MG TABLET PO SCH (09:00)
[2020-09-20] MEDS ORDERED: Insulin DETEMIR 100 UNIT/ML X5UNITS SUBQ ONE (09:17)
[2020-09-20] MEDS: Azithromycin 500 MG in 0.9 % Sodium Chloride 250 ML IVPB SCH (20:43)
[2020-09-21 07:02] LABS: Calcium 8.7 mg/dL (8.6-10.3); Magnesium 1.8 mg/dL (1.6-2.6); Potassium 4.8 mEq/L (3.5-5.1)
[2020-09-21] MEDS: methylPREDNISolone 125 MG/2 ML VIAL IVP SCH (08:09)
[2020-09-21] MEDS: Metoprolol XL (24 HR) Succ 25 MG TAB.ER.24H PO SCH (08:10)
[2020-09-21] MEDS: Apixaban 5 MG TABLET PO SCH ×2 (08:10→20:18)
[2020-09-21] MEDS: Cyanocobalamin (B-12) 1,000 MCG TABLET PO SCH (08:10)
[2020-09-21] MEDS: Aspirin Enteric Coated 81 MG Tablet PO SCH (08:10)
[2020-09-21] MEDS: Insulin LISPRO 300 UNITS/3 ML VIAL SUBQ SCH ×4 (08:11→20:19)
[2020-09-21] MEDS: Ipratropium/Albuterol Neb 3 ML IH PRN (08:41)
[2020-09-21] MEDS: Spironolactone 25 MG TABLET PO SCH (09:30)
[2020-09-21] MEDS: Insulin DETEMIR 100 UNIT/ML X5UNITS SUBQ SCH ×2 (10:01→20:17)
[2020-09-21 11:38] LABS: Bilirubin,Urine Small (Negative); Blood,Urine Large (Negative); Clarity,Urine Cloudy (Clear); Color,Urine Brown (Yellow); Glucose,Urine (UA) 100 mg/dL (Normal); Ketones,Urine Negative (Negative); Leukocyte Esterase,Urine Negative (Negative); Nitrite,Urine Negative (Negative); PH,Urine 5.5 pH Units (5.0-8.0); Protein,Urine >=300 mg/dL (Neg-Trace); Specific Gravity,Urine >= 1.030 (1.010-1.025); Urobilinogen,Urine Normal (Normal)
[2020-09-21] MEDS ORDERED: 0.9 % Sodium Chloride 250 ML IVC SCH (13:00)
[2020-09-21] MEDS: Azithromycin 250 MG TABLET PO SCH (20:19)
[2020-09-22 02:29] LABS: Calcium 8.5 mg/dL (8.6-10.3); Magnesium 1.8 mg/dL (1.6-2.6); Potassium 5.2 mEq/L (3.5-5.1)
[2020-09-22] MEDS: Ipratropium/Albuterol Neb 3 ML IH PRN (03:09)
[2020-09-22] MEDS: Cyanocobalamin (B-12) 1,000 MCG TABLET PO SCH (08:29)
[2020-09-22] MEDS: Metoprolol XL (24 HR) Succ 25 MG TAB.ER.24H PO SCH (08:29)
[2020-09-22] MEDS: Spironolactone 25 MG TABLET PO SCH (08:29)
[2020-09-22] MEDS: Apixaban 5 MG TABLET PO SCH ×2 (08:29→19:52)
[2020-09-22] MEDS: Insulin LISPRO 300 UNITS/3 ML VIAL SUBQ SCH ×4 (08:30→20:47)
[2020-09-22] MEDS: Aspirin Enteric Coated 81 MG Tablet PO SCH (08:30)
[2020-09-22] MEDS: Insulin DETEMIR 100 UNIT/ML X5UNITS SUBQ SCH ×2 (08:30→20:44)
[2020-09-22] MEDS ORDERED: predniSONE 20 MG TABLET PO SCH (09:00)
[2020-09-22] MEDS: Azithromycin 250 MG TABLET PO SCH (19:52)
[2020-09-23 01:38] LABS: Calcium 8.5 mg/dL (8.6-10.3); Potassium 5.6 mEq/L (3.5-5.1)
[2020-09-23] MEDS ORDERED: Albuterol 2.5 MG/3 ML NEBULIZER IH ONE ×2 (07:20→17:32)
[2020-09-23] MEDS ORDERED: Calcium Gluconate 1gm/50mL 1 GM/50 ML BAG IVPB ONE (07:20)
[2020-09-23] MEDS: Cyanocobalamin (B-12) 1,000 MCG TABLET PO SCH (07:54)
[2020-09-23] MEDS: Metoprolol XL (24 HR) Succ 25 MG TAB.ER.24H PO SCH (07:54)
[2020-09-23] MEDS: Aspirin Enteric Coated 81 MG Tablet PO SCH (07:54)
[2020-09-23] MEDS: Apixaban 5 MG TABLET PO SCH ×2 (07:54→20:54)
[2020-09-23] MEDS: Insulin DETEMIR 100 UNIT/ML X5UNITS SUBQ SCH ×2 (07:58→20:54)
[2020-09-23] MEDS: Insulin LISPRO 300 UNITS/3 ML VIAL SUBQ SCH ×4 (07:59→23:37)
[2020-09-23] MEDS ORDERED: predniSONE 20 MG TABLET PO SCH (09:00)
[2020-09-23] MEDS: SODIUM ZIRCONIUM CYCLOSILICATE 5 GM POWD.PACK PO SCH (18:10)
[2020-09-23] MEDS ORDERED: Insulin Human Regular 10 UNIT in 0.9 % Sodium Chloride 10 ML IV ONE (23:23)
[2020-09-23] MEDS ORDERED: *HR* Dextrose 50 % in Water (Vial) 50 ML VIAL IVP ONE (23:30)
[2020-09-24 07:06] VITALS: O2SAT 100
[2020-09-24] MEDS: Insulin LISPRO 300 UNITS/3 ML VIAL SUBQ SCH ×2 (07:52→11:36)
[2020-09-24 09:04] LABS: BUN/Creatinine Ratio 70 (6-26); Blood Urea Nitrogen 100 mg/dL (8-23); Calcium 9.2 mg/dL (8.6-10.3); Carbon Dioxide 34 mEq/L (23-29); Chloride 100 mEq/L (98-107); Glucose 156 mg/dL (70-105); Osmolality,Calculated 320 (280-300); Potassium 4.5 mEq/L (3.5-5.1); Sodium 138 mEq/L (136-145); eGFR For African Americans > 60 (> 60); eGFR For Non-African Americans 50 (> 60)
[2020-09-24] MEDS: Apixaban 5 MG TABLET PO SCH ×2 (09:29→09:44)
[2020-09-24] MEDS: Aspirin Enteric Coated 81 MG Tablet PO SCH ×2 (09:29→09:45)
[2020-09-24] MEDS: predniSONE 20 MG TABLET PO SCH ×2 (09:30→09:47)
[2020-09-24] MEDS: Metoprolol XL (24 HR) Succ 25 MG TAB.ER.24H PO SCH ×2 (09:30→09:47)
[2020-09-24] MEDS: SODIUM ZIRCONIUM CYCLOSILICATE 5 GM POWD.PACK PO SCH ×2 (09:30→11:53)
[2020-09-24] MEDS: Cyanocobalamin (B-12) 1,000 MCG TABLET PO SCH ×2 (09:30→09:47)
[2020-09-24] MEDS: Insulin DETEMIR 100 UNIT/ML X5UNITS SUBQ SCH (09:37)
[2020-09-24] MEDS ORDERED: Bumetanide 1 MG TABLET PO SCH (09:45)
[2020-09-24 11:33] VITALS: BP 120/75; PULSE 78; TEMP 97.8
== END 2020-09-24 15:12 | disposition home health service (06) | DRG 291 ==
LOC: 2ANU 19:22 → EMEROOARM 19:22 → SUATTDRO 23:03 → 2ANU 23:50
PROVIDERS: ADMIT Student in an Organized Health Care Education/Training Program; ATTEND Internal Medicine

== ENCOUNTER 2020-10-04 11:09 | Inpatient (IN) ==
[2020-10-04 12:09] LABS: VBG HCO3 30 mEq/L (21-27); VBG PCO2 58 mmHg (41-51); VBG PH 7.33 pH Units (7.32-7.42); VBG PO2 47 mmHg (25-50)
[2020-10-04] MEDS ORDERED: Furosemide 40 MG/4 ML VIAL IVP ONE (12:09)
[2020-10-04 12:18] LABS: Eosinophils % 0.1 %; Mean Corpuscular Hemoglobin 24.9 pg (28.0-33.3); Monocytes % 3.6 %
[2020-10-04 12:20] LABS: Basophils % 0.1 %; Hematocrit 31.8 % (37.5-50.1); Hemoglobin 9.5 g/dL (12.9-16.9); Immature Granulocytes % 0.3 % (0-4); Immature Platelets 8.5 % (1.1-6.1); Lymphocytes # 0.4 K/mcL (0.6-4.6); Lymphocytes % 3.9 %; Mean Corpuscular HGB Conc 29.9 g/dL (31.6-35.5); Mean Corpuscular Volume 83.5 fL (83.0-100.0); Mean Platelet Volume 12.2 fL (9.4-12.4); Monocytes # 0.3 K/mcL (0.0-1.3); Platelet Count 140 K/mcL (140-400); Red Blood Count 3.81 M/mcL (4.19-5.50); Red Cell Distribution Width 21.6 % (11.5-14.5); White Blood Count 9.3 K/mcL (4.3-11.1)
[2020-10-04 12:21] LABS: Neutrophils # 8.6 K/mcL (1.6-8.9)
[2020-10-04 12:39] LABS: Bilirubin,Total 0.7 mg/dL (0.3-1.0); Calcium 8.7 mg/dL (8.6-10.3); Digoxin 0.4 ng/mL (0.8-2.0); Potassium 4.6 mEq/L (3.5-5.1); Troponin I 0.14 ng/mL (< 0.04)
[2020-10-04] MEDS ORDERED: *HR* Dextrose 50 % in Water (Vial) 50 ML VIAL IVP PRN (14:13)
[2020-10-04] MEDS ORDERED: D5% in Water 1,000 ML IVC PRN (14:13)
[2020-10-04] MEDS ORDERED: Dextrose Gel 15 GM/37.5 ML TUBE PO PRN ×2 (14:13)
[2020-10-04] MEDS ORDERED: Naloxone 0.4 MG/ML INJ IVP PRN (14:13)
[2020-10-04] MEDS ORDERED: Insulin Human Regular 10 UNIT in 0.9 % Sodium Chloride 10 ML IV ONE (14:17)
[2020-10-04] MEDS ORDERED: Insulin LISPRO 300 UNITS/3 ML VIAL SUBQ SCH (16:30)
[2020-10-04] MEDS: Nicotine 21 MG PATCH.TD24 TD SCH (17:06)
[2020-10-04 17:08] LABS: Amphetamine Screen,Urine Negative ng/mL (Cutoff=1000); Barbiturate Screen,Urine Negative ng/mL (Cutoff=200); Benzodiazepines Screen,Urine Negative ng/mL (Cutoff=200); Cannabinoid Screen,Urine Negative ng/mL (Cutoff = 50); Cocaine Screen,Urine Negative ng/mL (Cutoff= 300); Opiate Screen,Urine Negative ng/mL (Cutoff=300); Phencyclidine Screen,Urine Negative ng/mL (Cutoff=25)
[2020-10-04 19:34] LABS: Calcium 8.7 mg/dL (8.6-10.3); Potassium 4.6 mEq/L (3.5-5.1); Troponin I 0.14 ng/mL (< 0.04)
[2020-10-04] MEDS ORDERED: Insulin DETEMIR 100 UNIT/ML X5UNITS SUBQ SCH (21:00)
[2020-10-04] MEDS: Apixaban 5 MG TABLET PO SCH (21:04)
[2020-10-05 07:03] LABS: Eosinophils % 0.2 %; Lymphocytes % 7.8 %; Monocytes % 8.5 %; Red Blood Count 3.75 M/mcL (4.19-5.50); Red Cell Distribution Width 21.1 % (11.5-14.5)
[2020-10-05 07:05] LABS: Hematocrit 30.6 % (37.5-50.1); Hemoglobin 9.5 g/dL (12.9-16.9); Immature Granulocytes % 0.4 % (0-4); Immature Platelets 10.9 % (1.1-6.1); Lymphocytes # 0.8 K/mcL (0.6-4.6); Mean Corpuscular Hemoglobin 25.3 pg (28.0-33.3); Mean Corpuscular Volume 81.6 fL (83.0-100.0); Mean Platelet Volume 12.3 fL (9.4-12.4); Monocytes # 0.9 K/mcL (0.0-1.3); Neutrophils # 8.6 K/mcL (1.6-8.9); Platelet Count 153 K/mcL (140-400); Segmented Neutrophils % 83.1 %; White Blood Count 10.4 K/mcL (4.3-11.1)
[2020-10-05 07:12] LABS: Calcium 8.6 mg/dL (8.6-10.3); Magnesium 1.6 mg/dL (1.6-2.6); Phosphorous 3.8 mg/dL (2.7-4.5); Potassium 4.2 mEq/L (3.5-5.1)
[2020-10-05] MEDS: Nicotine 21 MG PATCH.TD24 TD SCH (08:37)
[2020-10-05] MEDS: Apixaban 5 MG TABLET PO SCH ×2 (08:39→20:37)
[2020-10-05] MEDS ORDERED: Dextrose Gel 15 GM/37.5 ML TUBE PO PRN (13:35)
[2020-10-05] MEDS: Insulin LISPRO 300 UNITS/3 ML VIAL SUBQ SCH (18:03)
[2020-10-05] MEDS: *HR* Digoxin 0.125 MG TABLET PO SCH (18:23)
[2020-10-05] MEDS: Metoprolol XL (24 HR) Succ 25 MG TAB.ER.24H PO SCH (18:23)
[2020-10-05] MEDS: Albumin 25% 25gram/100mL 25 GM/100 ML IV.SOLN IVPB SCH (18:26)
[2020-10-05] MEDS: Furosemide 40 MG TABLET PO SCH (18:32)
[2020-10-05] MEDS: Insulin DETEMIR 100 UNIT/ML X5UNITS SUBQ SCH (20:38)
[2020-10-06 03:18] LABS: Basophils % 0.1 %; Eosinophils % 0.7 %
[2020-10-06 03:20] LABS: Eosinophils # 0.1 K/mcL (0.0-0.6); Hematocrit 29.9 % (37.5-50.1); Hemoglobin 8.9 g/dL (12.9-16.9); Immature Granulocytes % 0.4 % (0-4); Immature Platelets 8.5 % (1.1-6.1); Lymphocytes # 0.9 K/mcL (0.6-4.6); Lymphocytes % 9.8 %; Mean Corpuscular HGB Conc 29.8 g/dL (31.6-35.5); Mean Corpuscular Hemoglobin 24.9 pg (28.0-33.3); Mean Corpuscular Volume 83.5 fL (83.0-100.0); Mean Platelet Volume 11.7 fL (9.4-12.4); Monocytes # 0.6 K/mcL (0.0-1.3); Monocytes % 5.9 %; Platelet Count 141 K/mcL (140-400); Red Blood Count 3.58 M/mcL (4.19-5.50); Segmented Neutrophils % 83.1 %; White Blood Count 9.6 K/mcL (4.3-11.1)
[2020-10-06 03:42] LABS: Magnesium 1.6 mg/dL (1.6-2.6); Phosphorous 4.5 mg/dL (2.7-4.5); Potassium 4.5 mEq/L (3.5-5.1)
[2020-10-06] MEDS: Ipratropium/Albuterol Neb 3 ML IH PRN (03:47)
[2020-10-06 04:10] LABS: Sodium, Urine 21.5 mEq/L
[2020-10-06 04:13] LABS: Bacteria,Urine Few per hpf (None-Few); Bilirubin,Urine Negative (Negative); Blood,Urine Large (Negative); Clarity,Urine Turbid (Clear); Color,Urine Yellow (Yellow); Glucose,Urine (UA) 100 mg/dL (Normal); Hyaline Casts,Urine Few per lpf (None Seen); Ketones,Urine Negative (Negative); Leukocyte Esterase,Urine Moderate (Negative); Mucus,Urine Few per lpf (None-Few); Nitrite,Urine Negative (Negative); PH,Urine 5.5 pH Units (5.0-8.0); Protein,Urine >=300 mg/dL (Neg-Trace); RBC,Urine TNTC per hpf (0-3); Specific Gravity,Urine 1.017 (1.010-1.025); Squamous Epithelial Cell,Urine Few per hpf (None-Few); Urobilinogen,Urine Normal (Normal); WBC,Urine 50-100 per hpf (0-3)
[2020-10-06] MEDS: Albumin 25% 25gram/100mL 25 GM/100 ML IV.SOLN IVPB SCH ×2 (05:45→18:19)
[2020-10-06] MEDS: Furosemide 40 MG TABLET PO SCH ×2 (06:31→18:19)
[2020-10-06] MEDS: Metoprolol XL (24 HR) Succ 25 MG TAB.ER.24H PO SCH (07:27)
[2020-10-06] MEDS: Insulin LISPRO 300 UNITS/3 ML VIAL SUBQ SCH ×3 (07:49→16:55)
[2020-10-06] MEDS: Apixaban 5 MG TABLET PO SCH ×2 (07:50→21:02)
[2020-10-06] MEDS: Nicotine 21 MG PATCH.TD24 TD SCH (07:50)
[2020-10-06] MEDS: *HR* Digoxin 0.125 MG TABLET PO SCH (07:50)
[2020-10-06] MEDS: Aspirin 81 MG TAB.CHEW PO SCH (07:50)
[2020-10-06] MEDS: Insulin DETEMIR 100 UNIT/ML X5UNITS SUBQ SCH ×2 (07:50→21:02)
[2020-10-06 08:27] LABS: Troponin I 0.11 ng/mL (< 0.04)
[2020-10-06] MEDS: Ondansetron 4 MG/2 ML VIAL IVP PRN (15:55)
[2020-10-07] MEDS: Acetaminophen 325 MG TABLET PO PRN ×3 (00:15→20:28)
[2020-10-07] MEDS: Furosemide 40 MG TABLET PO SCH (05:56)
[2020-10-07] MEDS: Albumin 25% 25gram/100mL 25 GM/100 ML IV.SOLN IVPB SCH (05:56)
[2020-10-07] MEDS: Nicotine 21 MG PATCH.TD24 TD SCH (07:11)
[2020-10-07] MEDS: Insulin DETEMIR 100 UNIT/ML X5UNITS SUBQ SCH ×2 (07:11→20:28)
[2020-10-07] MEDS: Aspirin 81 MG TAB.CHEW PO SCH (07:12)
[2020-10-07] MEDS: Metoprolol XL (24 HR) Succ 25 MG TAB.ER.24H PO SCH (07:12)
[2020-10-07] MEDS: Apixaban 5 MG TABLET PO SCH ×2 (07:12→20:28)
[2020-10-07] MEDS: *HR* Digoxin 0.125 MG TABLET PO SCH (07:13)
[2020-10-07] MEDS: Ipratropium/Albuterol Neb 3 ML IH PRN (07:45)
[2020-10-07 07:46] LABS: Immature Granulocytes % 0.3 % (0-4); Mean Corpuscular HGB Conc 30.1 g/dL (31.6-35.5)
[2020-10-07 07:48] LABS: Basophils % 0.1 %; Eosinophils # 0.1 K/mcL (0.0-0.6); Hematocrit 30.9 % (37.5-50.1); Hemoglobin 9.3 g/dL (12.9-16.9); Immature Platelets 8.3 % (1.1-6.1); Lymphocytes # 0.8 K/mcL (0.6-4.6); Lymphocytes % 10.9 %; Mean Corpuscular Hemoglobin 25.2 pg (28.0-33.3); Mean Corpuscular Volume 83.7 fL (83.0-100.0); Mean Platelet Volume 12.4 fL (9.4-12.4); Monocytes # 0.5 K/mcL (0.0-1.3); Monocytes % 7.3 %; Neutrophils # 5.8 K/mcL (1.6-8.9); Platelet Count 129 K/mcL (140-400); Red Blood Count 3.69 M/mcL (4.19-5.50); Red Cell Distribution Width 21.3 % (11.5-14.5); Segmented Neutrophils % 80.4 %; White Blood Count 7.2 K/mcL (4.3-11.1)
[2020-10-07 08:05] LABS: Calcium 8.5 mg/dL (8.6-10.3); Potassium 4.6 mEq/L (3.5-5.1)
[2020-10-07] MEDS: Insulin LISPRO 300 UNITS/3 ML VIAL SUBQ SCH ×3 (08:24→17:16)
[2020-10-08] MEDS: Ipratropium/Albuterol Neb 3 ML IH PRN ×3 (04:19→20:21)
[2020-10-08 06:26] LABS: Basophils % 0.1 %; Eosinophils # 0.1 K/mcL (0.0-0.6); Eosinophils % 0.7 %; Hematocrit 26.7 % (37.5-50.1); Hemoglobin 8.4 g/dL (12.9-16.9); Immature Granulocytes % 0.3 % (0-4); Immature Platelets 5.9 % (1.1-6.1); Lymphocytes % 14.7 %; Mean Corpuscular HGB Conc 31.5 g/dL (31.6-35.5); Mean Corpuscular Hemoglobin 25.7 pg (28.0-33.3); Mean Corpuscular Volume 81.7 fL (83.0-100.0); Mean Platelet Volume 12.2 fL (9.4-12.4); Monocytes # 0.5 K/mcL (0.0-1.3); Monocytes % 7.5 %; Neutrophils # 5.3 K/mcL (1.6-8.9); Platelet Count 115 K/mcL (140-400); Red Blood Count 3.27 M/mcL (4.19-5.50); Red Cell Distribution Width 21.2 % (11.5-14.5); Segmented Neutrophils % 76.7 %; White Blood Count 6.9 K/mcL (4.3-11.1)
[2020-10-08 06:43] LABS: Potassium 4.7 mEq/L (3.5-5.1)
[2020-10-08] MEDS: Insulin LISPRO 300 UNITS/3 ML VIAL SUBQ SCH ×3 (07:51→16:35)
[2020-10-08] MEDS: Nicotine 21 MG PATCH.TD24 TD SCH (07:51)
[2020-10-08] MEDS: Aspirin 81 MG TAB.CHEW PO SCH (07:52)
[2020-10-08] MEDS: Apixaban 5 MG TABLET PO SCH ×2 (07:52→20:42)
[2020-10-08] MEDS: *HR* Digoxin 0.125 MG TABLET PO SCH (07:52)
[2020-10-08] MEDS: Insulin DETEMIR 100 UNIT/ML X5UNITS SUBQ SCH ×2 (07:53→20:43)
[2020-10-08] MEDS: Metoprolol XL (24 HR) Succ 25 MG TAB.ER.24H PO SCH (07:55)
[2020-10-08 09:14] LABS: Calcium 8.1 mg/dL (8.6-10.3)
[2020-10-09] MEDS: Ipratropium/Albuterol Neb 3 ML IH PRN (00:28)
[2020-10-09 04:45] LABS: Basophils % 0.1 %; Red Cell Distribution Width 21.4 % (11.5-14.5)
[2020-10-09 04:47] LABS: Eosinophils # 0.1 K/mcL (0.0-0.6); Eosinophils % 0.7 %; Hematocrit 27.1 % (37.5-50.1); Hemoglobin 8.5 g/dL (12.9-16.9); Immature Granulocytes % 0.1 % (0-4); Lymphocytes # 0.8 K/mcL (0.6-4.6); Lymphocytes % 10.5 %; Mean Corpuscular HGB Conc 31.4 g/dL (31.6-35.5); Mean Corpuscular Hemoglobin 25.2 pg (28.0-33.3); Mean Corpuscular Volume 80.4 fL (83.0-100.0); Mean Platelet Volume 11.5 fL (9.4-12.4); Monocytes # 0.5 K/mcL (0.0-1.3); Monocytes % 6.7 %; Neutrophils # 6.1 K/mcL (1.6-8.9); Platelet Count 105 K/mcL (140-400); Red Blood Count 3.37 M/mcL (4.19-5.50); Segmented Neutrophils % 81.9 %; White Blood Count 7.4 K/mcL (4.3-11.1)
[2020-10-09 05:05] LABS: Calcium 8.4 mg/dL (8.6-10.3); Potassium 4.5 mEq/L (3.5-5.1)
[2020-10-09] MEDS: Aspirin 81 MG TAB.CHEW PO SCH (07:26)
[2020-10-09] MEDS: Insulin LISPRO 300 UNITS/3 ML VIAL SUBQ SCH ×3 (07:26→17:27)
[2020-10-09] MEDS: Apixaban 5 MG TABLET PO SCH ×2 (07:26→20:37)
[2020-10-09] MEDS: Metoprolol XL (24 HR) Succ 25 MG TAB.ER.24H PO SCH (07:27)
[2020-10-09] MEDS: Insulin DETEMIR 100 UNIT/ML X5UNITS SUBQ SCH ×2 (07:27→20:37)
[2020-10-09] MEDS: Nicotine 21 MG PATCH.TD24 TD SCH (07:27)
[2020-10-09] MEDS ORDERED: Trolamine Salicylate/Aloe Vera 85 APPL/85 GM TUBE TP PRN (07:59)
[2020-10-09] MEDS ORDERED: Heparin 1,000 UNITS/500 mL 500 ML ONE (08:22)
[2020-10-09] MEDS ORDERED: *HR* Heparin 5,000 UNIT/ML VIAL ONE ×2 (08:45→08:48)
[2020-10-09] MEDS ORDERED: Albumin 25% 25gram/100mL 25 GM/100 ML IV.SOLN IVPB ONE (09:22)
[2020-10-09] MEDS ORDERED: Furosemide 40 MG/4 ML VIAL IVP ONE (11:00)
[2020-10-09] MEDS ORDERED: 0.9 % Sodium Chloride 250 ML IVC PRN (12:37)
[2020-10-09] MEDS ORDERED: 0.9 % Sodium Chloride 1,000 ML PRIME SCH (13:15)
[2020-10-09] MEDS ORDERED: *HR* Heparin 10,000 UNIT/10 ML VIAL IV PRN (13:15)
[2020-10-09] MEDS: Acetaminophen 325 MG TABLET PO PRN (15:06)
[2020-10-10] MEDS: Ipratropium/Albuterol Neb 3 ML IH PRN ×4 (01:57→22:25)
[2020-10-10 05:11] LABS: Mean Corpuscular Volume 81.2 fL (83.0-100.0); Monocytes % 7.5 %
[2020-10-10 05:13] LABS: Basophils % 0.1 %; Eosinophils # 0.1 K/mcL (0.0-0.6); Eosinophils % 0.8 %; Hematocrit 28.1 % (37.5-50.1); Hemoglobin 8.8 g/dL (12.9-16.9); Immature Granulocytes % 0.5 % (0-4); Immature Platelets 6.3 % (1.1-6.1); Lymphocytes # 0.8 K/mcL (0.6-4.6); Lymphocytes % 10.5 %; Mean Corpuscular HGB Conc 31.3 g/dL (31.6-35.5); Mean Corpuscular Hemoglobin 25.4 pg (28.0-33.3); Mean Platelet Volume 11.8 fL (9.4-12.4); Monocytes # 0.6 K/mcL (0.0-1.3); Platelet Count 106 K/mcL (140-400); Red Blood Count 3.46 M/mcL (4.19-5.50); Red Cell Distribution Width 21.5 % (11.5-14.5); Segmented Neutrophils % 80.6 %; White Blood Count 7.4 K/mcL (4.3-11.1)
[2020-10-10 05:25] LABS: Calcium 8.6 mg/dL (8.6-10.3); Potassium 4.8 mEq/L (3.5-5.1)
[2020-10-10] MEDS: Metoprolol XL (24 HR) Succ 25 MG TAB.ER.24H PO SCH (07:54)
[2020-10-10] MEDS: Apixaban 5 MG TABLET PO SCH ×2 (07:55→21:52)
[2020-10-10] MEDS: Aspirin 81 MG TAB.CHEW PO SCH (07:55)
[2020-10-10] MEDS: Insulin DETEMIR 100 UNIT/ML X5UNITS SUBQ SCH ×2 (08:00→21:56)
[2020-10-10] MEDS: Insulin LISPRO 300 UNITS/3 ML VIAL SUBQ SCH ×3 (08:01→19:33)
[2020-10-10] MEDS ORDERED: 0.9 % Sodium Chloride 250 ML IVC PRN (08:03)
[2020-10-10] MEDS ORDERED: *HR* Heparin 10,000 UNIT/10 ML VIAL IV PRN (08:03)
[2020-10-10] MEDS ORDERED: Albumin 25% 25gram/100mL 25 GM/100 ML IV.SOLN ONE (09:00)
[2020-10-10] MEDS: Albumin 25% 25gram/100mL 25 GM/100 ML IV.SOLN IVPB PRN (09:20)
[2020-10-10 11:40] LABS: Prothrombin Time 22.2 Seconds (9.4-12.1)
[2020-10-10 11:43] LABS: Activated Partial Thrombo Time 35.9 Seconds (26.0-36.0)
[2020-10-10] MEDS: Nicotine 21 MG PATCH.TD24 TD SCH (12:13)
[2020-10-10 12:32] LABS: Complement C3 110 mg/dL (87-200)
[2020-10-10] MEDS: Ondansetron 4 MG/2 ML VIAL IVP PRN (13:45)
[2020-10-11 06:56] LABS: Calcium 8.4 mg/dL (8.6-10.3); Potassium 5.4 mEq/L (3.5-5.1)
[2020-10-11 07:55] LABS: Basophils % 0.2 %; Hemoglobin 8.1 g/dL (12.9-16.9); Red Cell Distribution Width 22.1 % (11.5-14.5)
[2020-10-11 07:57] LABS: Eosinophils # 0.1 K/mcL (0.0-0.6); Hematocrit 27.2 % (37.5-50.1); Immature Granulocytes % 0.2 % (0-4); Immature Platelets 4.1 % (1.1-6.1); Lymphocytes # 0.6 K/mcL (0.6-4.6); Lymphocytes % 11.3 %; Mean Corpuscular HGB Conc 29.8 g/dL (31.6-35.5); Mean Corpuscular Hemoglobin 25.3 pg (28.0-33.3); Mean Platelet Volume 11.1 fL (9.4-12.4); Monocytes # 0.5 K/mcL (0.0-1.3); Monocytes % 9.9 %; Neutrophils # 3.9 K/mcL (1.6-8.9); Segmented Neutrophils % 77.4 %
[2020-10-11] MEDS: Aspirin 81 MG TAB.CHEW PO SCH (08:06)
[2020-10-11] MEDS: Insulin LISPRO 300 UNITS/3 ML VIAL SUBQ SCH ×3 (08:06→17:38)
[2020-10-11] MEDS: Apixaban 5 MG TABLET PO SCH ×2 (08:06→20:16)
[2020-10-11 08:07] LABS: Platelet Count 90 K/mcL (140-400)
[2020-10-11] MEDS: Nicotine 21 MG PATCH.TD24 TD SCH (08:07)
[2020-10-11] MEDS: Insulin DETEMIR 100 UNIT/ML X5UNITS SUBQ SCH ×2 (08:14→20:17)
[2020-10-11] MEDS ORDERED: 0.9 % Sodium Chloride 250 ML IVC PRN (08:23)
[2020-10-11] MEDS ORDERED: *HR* Heparin 10,000 UNIT/10 ML VIAL IV PRN (08:23)
[2020-10-11] MEDS: Metoprolol XL (24 HR) Succ 25 MG TAB.ER.24H PO SCH (08:24)
[2020-10-11 10:34] LABS: Hepatitis B Surface Antibody < 3.10 mIU/mL
[2020-10-11 10:45] LABS: Hepatitis B Surface Antigen Nonreactive (Nonreactive)
[2020-10-11] MEDS: Albumin 25% 25gram/100mL 25 GM/100 ML IV.SOLN IVPB PRN (10:45)
[2020-10-11] MEDS ORDERED: Perflutren Lipid Microsphere 1.3 ML in 0.9 % Sodium Chloride 8.7 ML IVP PRN (10:53)
[2020-10-11] MEDS ORDERED: 0.9 % Sodium Chloride 250 ML IVC ONE (13:14)
[2020-10-11] MEDS: Ipratropium/Albuterol Neb 3 ML IH PRN (21:24)
[2020-10-12] MEDS: Ipratropium/Albuterol Neb 3 ML IH PRN ×2 (03:53→07:17)
[2020-10-12] MEDS: Insulin LISPRO 300 UNITS/3 ML VIAL SUBQ SCH ×3 (07:44→16:52)
[2020-10-12 08:48] LABS: Albumin 2.8 g/dL (3.5-5.7); Albumin/Globulin Ratio 1.2 (1.1-2.2); Bilirubin,Total 0.6 mg/dL (0.3-1.0); Calcium 8.3 mg/dL (8.6-10.3); Globulin 2.4 g/dL (2.4-3.5); Potassium 5.2 mEq/L (3.5-5.1); Total Protein 5.2 g/dL (6.4-8.9)
[2020-10-12] MEDS: Insulin DETEMIR 100 UNIT/ML X5UNITS SUBQ SCH ×2 (09:41→21:23)
[2020-10-12] MEDS: Nicotine 21 MG PATCH.TD24 TD SCH (13:11)
[2020-10-12] MEDS: Metoprolol XL (24 HR) Succ 25 MG TAB.ER.24H PO SCH (13:16)
[2020-10-12] MEDS: Aspirin 81 MG TAB.CHEW PO SCH (13:16)
[2020-10-12] MEDS: Apixaban 5 MG TABLET PO SCH ×2 (13:20→20:25)
[2020-10-12] MEDS: Ondansetron 4 MG/2 ML VIAL IVP PRN (20:25)
[2020-10-13] MEDS: Ipratropium/Albuterol Neb 3 ML IH PRN ×5 (00:27→15:05)
[2020-10-13] MEDS: Insulin LISPRO 300 UNITS/3 ML VIAL SUBQ SCH ×3 (07:43→17:18)
[2020-10-13] MEDS: Aspirin 81 MG TAB.CHEW PO SCH (09:53)
[2020-10-13] MEDS: Apixaban 5 MG TABLET PO SCH ×2 (09:53→21:16)
[2020-10-13] MEDS: Nicotine 21 MG PATCH.TD24 TD SCH (09:53)
[2020-10-13] MEDS: Metoprolol XL (24 HR) Succ 25 MG TAB.ER.24H PO SCH (09:53)
[2020-10-13] MEDS: Ondansetron 4 MG/2 ML VIAL IVP PRN (09:54)
[2020-10-13] MEDS: Insulin DETEMIR 100 UNIT/ML X5UNITS SUBQ SCH ×2 (10:05→21:41)
[2020-10-13 14:50] LABS: ANA IgG by ELISA NONE DETECTED (None Detected)
[2020-10-13 14:52] LABS: Serine Protease-3 Antibody 3 AU/mL (0-19)
[2020-10-13] MEDS ORDERED: methylPREDNISolone 125 MG/2 ML VIAL IVPB SCH (15:15)
[2020-10-13 17:59] LABS: Basophils % 0.3 %; Eosinophils # 0.1 K/mcL (0.0-0.6); Hematocrit 26.6 % (37.5-50.1); Hemoglobin 8.2 g/dL (12.9-16.9); Immature Granulocytes % 0.3 % (0-4); Lymphocytes # 0.5 K/mcL (0.6-4.6); Lymphocytes % 11.3 %; Mean Corpuscular HGB Conc 30.8 g/dL (31.6-35.5); Mean Corpuscular Hemoglobin 25.5 pg (28.0-33.3); Mean Corpuscular Volume 82.6 fL (83.0-100.0); Mean Platelet Volume 10.9 fL (9.4-12.4); Monocytes # 0.4 K/mcL (0.0-1.3); Monocytes % 10.6 %; Platelet Count 133 K/mcL (140-400); Red Blood Count 3.22 M/mcL (4.19-5.50); Red Cell Distribution Width 21.2 % (11.5-14.5); Segmented Neutrophils % 75.5 %
[2020-10-13 18:19] LABS: Calcium 8.5 mg/dL (8.6-10.3); Potassium 5.5 mEq/L (3.5-5.1)
[2020-10-14] MEDS: Ipratropium/Albuterol Neb 3 ML IH PRN ×3 (00:13→16:41)
[2020-10-14 01:24] LABS: Hematocrit 27.3 % (37.5-50.1); Hemoglobin 8.3 g/dL (12.9-16.9); Immature Granulocytes % 0.3 % (0-4); Lymphocytes # 0.1 K/mcL (0.6-4.6); Lymphocytes % 2.9 %; Mean Corpuscular HGB Conc 30.4 g/dL (31.6-35.5); Mean Corpuscular Volume 82.2 fL (83.0-100.0); Mean Platelet Volume 10.8 fL (9.4-12.4); Monocytes # 0.1 K/mcL (0.0-1.3); Monocytes % 1.8 %; Platelet Count 133 K/mcL (140-400); Red Blood Count 3.32 M/mcL (4.19-5.50); Red Cell Distribution Width 21.2 % (11.5-14.5); White Blood Count 3.4 K/mcL (4.3-11.1)
[2020-10-14 01:25] LABS: Neutrophils # 3.2 K/mcL (1.6-8.9)
[2020-10-14 01:43] LABS: Phosphorous 6.5 mg/dL (2.7-4.5)
[2020-10-14 01:44] LABS: Calcium 8.6 mg/dL (8.6-10.3)
[2020-10-14] MEDS ORDERED: 0.9 % Sodium Chloride 250 ML IVC PRN (07:49)
[2020-10-14] MEDS: Aspirin 81 MG TAB.CHEW PO SCH (08:23)
[2020-10-14] MEDS: Apixaban 5 MG TABLET PO SCH ×2 (08:23→20:57)
[2020-10-14] MEDS: Nicotine 21 MG PATCH.TD24 TD SCH (08:23)
[2020-10-14] MEDS: Insulin LISPRO 300 UNITS/3 ML VIAL SUBQ SCH ×3 (08:37→16:49)
[2020-10-14] MEDS ORDERED: Insulin LISPRO 300 UNITS/3 ML VIAL SUBQ ONE (10:14)
[2020-10-14 11:48] LABS: Immunoglobulin A 447 mg/dL (68-408); Immunoglobulin G 621 mg/dL (768-1632); Immunoglobulin M 43 mg/dL (35-263)
[2020-10-14 14:09] LABS: Alpha 2 Globulin (PEP) 0.71 g/dL (0.48-1.05); Beta Globulin (PEP) 0.73 g/dL (0.48-1.10)
[2020-10-14] MEDS: Insulin DETEMIR 100 UNIT/ML X5UNITS SUBQ SCH ×2 (14:51→20:57)
[2020-10-14 15:03] LABS: IFE Reflexed IFE Done
[2020-10-14] MEDS: Metoprolol XL (24 HR) Succ 25 MG TAB.ER.24H PO SCH (15:16)
[2020-10-15 02:50] LABS: Hematocrit 26.2 % (37.5-50.1); Immature Granulocytes % 0.2 % (0-4); Lymphocytes # 0.2 K/mcL (0.6-4.6); Lymphocytes % 3.3 %; Mean Corpuscular HGB Conc 30.5 g/dL (31.6-35.5); Mean Corpuscular Hemoglobin 24.8 pg (28.0-33.3); Mean Corpuscular Volume 81.4 fL (83.0-100.0); Mean Platelet Volume 11.3 fL (9.4-12.4); Monocytes # 0.2 K/mcL (0.0-1.3); Monocytes % 3.7 %; Neutrophils # 5.1 K/mcL (1.6-8.9); Platelet Count 158 K/mcL (140-400); Red Blood Count 3.22 M/mcL (4.19-5.50); Red Cell Distribution Width 21.3 % (11.5-14.5); Segmented Neutrophils % 92.8 %
[2020-10-15 02:54] LABS: White Blood Count 5.5 K/mcL (4.3-11.1)
[2020-10-15 03:11] LABS: Calcium 8.8 mg/dL (8.6-10.3); Potassium 4.9 mEq/L (3.5-5.1)
[2020-10-15] MEDS: Aspirin 81 MG TAB.CHEW PO SCH (08:20)
[2020-10-15] MEDS: Metoprolol XL (24 HR) Succ 25 MG TAB.ER.24H PO SCH (08:20)
[2020-10-15] MEDS: Nicotine 21 MG PATCH.TD24 TD SCH (08:20)
[2020-10-15] MEDS: Insulin LISPRO 300 UNITS/3 ML VIAL SUBQ SCH ×3 (08:24→17:33)
[2020-10-15] MEDS: Insulin DETEMIR 100 UNIT/ML X5UNITS SUBQ SCH ×2 (08:27→20:38)
[2020-10-15] MEDS: Apixaban 5 MG TABLET PO SCH (08:28)
[2020-10-15] MEDS: Ipratropium/Albuterol Neb 3 ML IH PRN (22:00)
[2020-10-16 04:39] LABS: Potassium 5.3 mEq/L (3.5-5.1)
[2020-10-16] MEDS: Ipratropium/Albuterol Neb 3 ML IH PRN (06:03)
[2020-10-16 07:10] LABS: INR 2.2; Prothrombin Time 25.2 Seconds (9.4-12.1)
[2020-10-16] MEDS ORDERED: *HR* Phytonadione 10 MG/ML AMPUL SQ ONE (08:18)
[2020-10-16] MEDS ORDERED: 0.9 % Sodium Chloride 250 ML IVC PRN (08:22)
[2020-10-16] MEDS ORDERED: 0.9 % Sodium Chloride 1,000 ML PRIME SCH (08:30)
[2020-10-16 11:38] LABS: Hematocrit 27.9 % (37.5-50.1); Hemoglobin 8.5 g/dL (12.9-16.9); Immature Granulocytes % 0.3 % (0-4); Lymphocytes # 0.3 K/mcL (0.6-4.6); Lymphocytes % 3.2 %; Mean Corpuscular HGB Conc 30.5 g/dL (31.6-35.5); Mean Corpuscular Volume 82.1 fL (83.0-100.0); Mean Platelet Volume 11.5 fL (9.4-12.4); Neutrophils # 7.3 K/mcL (1.6-8.9); Platelet Count 217 K/mcL (140-400); Red Cell Distribution Width 21.5 % (11.5-14.5); White Blood Count 7.8 K/mcL (4.3-11.1)
[2020-10-16 11:39] LABS: Monocytes # 0.3 K/mcL (0.0-1.3); Monocytes % 3.5 %
[2020-10-16] MEDS: Insulin LISPRO 300 UNITS/3 ML VIAL SUBQ SCH ×3 (12:17→17:15)
[2020-10-16] MEDS: predniSONE 20 MG TABLET PO SCH (14:03)
[2020-10-16] MEDS: Metoprolol XL (24 HR) Succ 25 MG TAB.ER.24H PO SCH (14:03)
[2020-10-16] MEDS: Aspirin 81 MG TAB.CHEW PO SCH (14:03)
[2020-10-16] MEDS: Nicotine 21 MG PATCH.TD24 TD SCH (14:04)
[2020-10-16] MEDS: Insulin DETEMIR 100 UNIT/ML X5UNITS SUBQ SCH ×2 (14:04→20:20)
[2020-10-16 15:19] LABS: INR 1.9; Prothrombin Time 21.2 Seconds (9.4-12.1)
[2020-10-17 03:07] LABS: Hematocrit 27.3 % (37.5-50.1); Hemoglobin 8.4 g/dL (12.9-16.9); Immature Granulocytes % 0.2 % (0-4); Lymphocytes # 0.2 K/mcL (0.6-4.6); Lymphocytes % 2.3 %; Mean Corpuscular HGB Conc 30.8 g/dL (31.6-35.5); Mean Corpuscular Hemoglobin 25.8 pg (28.0-33.3); Mean Platelet Volume 11.2 fL (9.4-12.4); Monocytes # 0.2 K/mcL (0.0-1.3); Monocytes % 2.9 %; Platelet Count 210 K/mcL (140-400); Red Blood Count 3.25 M/mcL (4.19-5.50); Segmented Neutrophils % 94.6 %; White Blood Count 6.5 K/mcL (4.3-11.1)
[2020-10-17 03:14] LABS: Neutrophils # 6.2 K/mcL (1.6-8.9)
[2020-10-17 03:16] LABS: INR 1.8; Prothrombin Time 20.6 Seconds (9.4-12.1)
[2020-10-17 03:28] LABS: Calcium 8.8 mg/dL (8.6-10.3)
[2020-10-17] MEDS: Ipratropium/Albuterol Neb 3 ML IH PRN ×2 (04:13→21:36)
[2020-10-17] MEDS ORDERED: *HR* Phytonadione 10 MG/ML AMPUL SQ ONE (07:50)
[2020-10-17] MEDS: Metoprolol XL (24 HR) Succ 25 MG TAB.ER.24H PO SCH (08:50)
[2020-10-17] MEDS: Aspirin 81 MG TAB.CHEW PO SCH (08:50)
[2020-10-17] MEDS: predniSONE 20 MG TABLET PO SCH (08:50)
[2020-10-17] MEDS: Insulin LISPRO 300 UNITS/3 ML VIAL SUBQ SCH ×3 (08:59→17:47)
[2020-10-17] MEDS: Insulin DETEMIR 100 UNIT/ML X5UNITS SUBQ SCH ×2 (08:59→21:33)
[2020-10-17] MEDS: Nicotine 21 MG PATCH.TD24 TD SCH (09:04)
[2020-10-17] MEDS ORDERED: 0.9 % Sodium Chloride 500 ML ONE (09:29)
[2020-10-17] MEDS ORDERED: *HR* Midazolam HCl 2 MG/2 ML VIAL IVP ONE (09:45)
[2020-10-17] MEDS ORDERED: *HR* FentaNYL (PF) 100 MCG/2 ML VIAL IVP ONE (09:45)
[2020-10-17 11:04] LABS: GBM IgG Multiplex Bead Assay 0 AU/mL (0-19); Glomerular Basement Memb IgG NEGATIVE (Negative)
[2020-10-17] MEDS: Apixaban 5 MG TABLET PO SCH (13:39)
[2020-10-18 04:46] LABS: Hematocrit 26.4 % (37.5-50.1); Immature Granulocytes % 0.4 % (0-4); Lymphocytes # 0.2 K/mcL (0.6-4.6); Lymphocytes % 2.7 %; Mean Corpuscular HGB Conc 30.3 g/dL (31.6-35.5); Mean Corpuscular Hemoglobin 25.3 pg (28.0-33.3); Mean Corpuscular Volume 83.5 fL (83.0-100.0); Mean Platelet Volume 11.4 fL (9.4-12.4); Monocytes # 0.4 K/mcL (0.0-1.3); Monocytes % 5.3 %; Neutrophils # 6.9 K/mcL (1.6-8.9); Platelet Count 203 K/mcL (140-400); Red Blood Count 3.16 M/mcL (4.19-5.50); Red Cell Distribution Width 21.7 % (11.5-14.5); Segmented Neutrophils % 91.6 %; White Blood Count 7.5 K/mcL (4.3-11.1)
[2020-10-18 05:06] LABS: Calcium 8.6 mg/dL (8.6-10.3); Potassium 4.9 mEq/L (3.5-5.1)
[2020-10-18] MEDS ORDERED: 0.9 % Sodium Chloride 1,000 ML ONE (07:03)
[2020-10-18] MEDS ORDERED: 0.9 % Sodium Chloride 500 ML ONE (07:33)
[2020-10-18] MEDS ORDERED: 0.9 % Sodium Chloride 250 ML IVC PRN (08:12)
[2020-10-18] MEDS ORDERED: Heparin 1,000 UNITS/500 mL 500 ML ONE (08:19)
[2020-10-18] MEDS ORDERED: *HR* FentaNYL (PF) 100 MCG/2 ML VIAL IVP ONE (08:29)
[2020-10-18] MEDS ORDERED: CeFAZolin 2,000MG/50ML DUPLEX 2,000 MG/50 ML BAG IVPB ONE (08:30)
[2020-10-18] MEDS ORDERED: *HR* Midazolam HCl 2 MG/2 ML VIAL IVP ONE (08:41)
[2020-10-18] MEDS ORDERED: *HR* Midazolam HCl 2 MG/2 ML VIAL ONE (08:45)
[2020-10-18] MEDS ORDERED: *HR* Heparin 5,000 UNIT/ML VIAL ONE (09:04)
[2020-10-18 10:51] LABS: Magnesium 1.8 mg/dL (1.6-2.6); Phosphorous 5.5 mg/dL (2.7-4.5)
[2020-10-18] MEDS: Apixaban 5 MG TABLET PO SCH ×2 (11:08→21:19)
[2020-10-18] MEDS: Insulin LISPRO 300 UNITS/3 ML VIAL SUBQ SCH ×4 (11:08→18:00)
[2020-10-18] MEDS: Metoprolol XL (24 HR) Succ 25 MG TAB.ER.24H PO SCH (11:09)
[2020-10-18] MEDS: Insulin DETEMIR 100 UNIT/ML X5UNITS SUBQ SCH ×2 (11:50→21:20)
[2020-10-18] MEDS: Aspirin 81 MG TAB.CHEW PO SCH (11:58)
[2020-10-18] MEDS: Nicotine 21 MG PATCH.TD24 TD SCH (11:58)
[2020-10-18] MEDS: predniSONE 20 MG TABLET PO SCH (11:58)
[2020-10-18] MEDS: Ipratropium/Albuterol Neb 3 ML IH SCH ×2 (15:54→22:21)
[2020-10-18] MEDS: Acetaminophen 325 MG TABLET PO PRN (21:18)
[2020-10-18] MEDS: Budesonide/Formoterol 160/4.5 1 PUFF INH IH SCH (22:22)
[2020-10-19] MEDS: Ipratropium/Albuterol Neb 3 ML IH SCH ×4 (03:21→22:41)
[2020-10-19 06:44] LABS: Hematocrit 26.8 % (37.5-50.1); Immature Granulocytes % 0.4 % (0-4); Lymphocytes # 0.1 K/mcL (0.6-4.6); Lymphocytes % 1.7 %; Mean Corpuscular HGB Conc 29.9 g/dL (31.6-35.5); Mean Corpuscular Hemoglobin 25.1 pg (28.0-33.3); Mean Platelet Volume 11.6 fL (9.4-12.4); Monocytes # 0.3 K/mcL (0.0-1.3); Monocytes % 4.4 %; Platelet Count 207 K/mcL (140-400); Red Blood Count 3.19 M/mcL (4.19-5.50); Red Cell Distribution Width 21.9 % (11.5-14.5); Segmented Neutrophils % 93.5 %; White Blood Count 7.5 K/mcL (4.3-11.1)
[2020-10-19 07:05] LABS: Magnesium 1.8 mg/dL (1.6-2.6); Phosphorous 4.4 mg/dL (2.7-4.5)
[2020-10-19 07:07] LABS: Calcium 8.4 mg/dL (8.6-10.3); Potassium 4.5 mEq/L (3.5-5.1)
[2020-10-19 07:11] LABS: % Iron Saturation 11 % (20-55); Iron 33 mcg/dL (65-175); Transferrin 222 mg/dL (203-362)
[2020-10-19 07:22] LABS: Ferritin 177 ng/mL (20-250)
[2020-10-19 07:28] LABS: Folate 4.8 ng/mL (3.0-16.0)
[2020-10-19] MEDS ORDERED: Iron Sucrose Complex 400 MG in 0.9 % Sodium Chloride 250 ML IVPB ONE (07:44)
[2020-10-19] MEDS: Nicotine 21 MG PATCH.TD24 TD SCH (09:20)
[2020-10-19] MEDS: Insulin LISPRO 300 UNITS/3 ML VIAL SUBQ SCH ×6 (09:20→18:03)
[2020-10-19] MEDS: Apixaban 5 MG TABLET PO SCH ×2 (09:21→20:15)
[2020-10-19] MEDS: Metoprolol XL (24 HR) Succ 25 MG TAB.ER.24H PO SCH (09:21)
[2020-10-19] MEDS: Renal Vitamin 1 CAP CAPSULE PO SCH (09:21)
[2020-10-19] MEDS: Aspirin 81 MG TAB.CHEW PO SCH (09:21)
[2020-10-19] MEDS: predniSONE 20 MG TABLET PO SCH (09:21)
[2020-10-19] MEDS: Insulin DETEMIR 100 UNIT/ML X5UNITS SUBQ SCH ×2 (09:31→20:16)
[2020-10-19] MEDS: Budesonide/Formoterol 160/4.5 1 PUFF INH IH SCH ×2 (10:35→22:41)
[2020-10-20] MEDS: Ipratropium/Albuterol Neb 3 ML IH SCH ×3 (04:48→15:20)
[2020-10-20 06:47] LABS: Eosinophils % 0.1 %; Hematocrit 26.9 % (37.5-50.1); Hemoglobin 8.3 g/dL (12.9-16.9); Immature Granulocytes % 0.5 % (0-4); Lymphocytes # 0.4 K/mcL (0.6-4.6); Lymphocytes % 3.3 %; Mean Corpuscular HGB Conc 30.9 g/dL (31.6-35.5); Mean Corpuscular Hemoglobin 25.7 pg (28.0-33.3); Mean Corpuscular Volume 83.3 fL (83.0-100.0); Mean Platelet Volume 10.7 fL (9.4-12.4); Monocytes # 0.5 K/mcL (0.0-1.3); Monocytes % 4.7 %; Neutrophils # 10.5 K/mcL (1.6-8.9); Platelet Count 224 K/mcL (140-400); Red Blood Count 3.23 M/mcL (4.19-5.50); Red Cell Distribution Width 22.2 % (11.5-14.5); Segmented Neutrophils % 91.4 %; White Blood Count 11.5 K/mcL (4.3-11.1)
[2020-10-20] MEDS ORDERED: 0.9 % Sodium Chloride 1,000 ML ONE (07:00)
[2020-10-20 07:04] VITALS: O2SAT 97
[2020-10-20] MEDS ORDERED: 0.9 % Sodium Chloride 1,000 ML PRIME SCH (07:15)
[2020-10-20] MEDS ORDERED: 0.9 % Sodium Chloride 250 ML IVC PRN (07:15)
[2020-10-20 08:40] LABS: Calcium 8.6 mg/dL (8.6-10.3); Potassium 4.7 mEq/L (3.5-5.1)
[2020-10-20] MEDS: Aspirin 81 MG TAB.CHEW PO SCH (09:35)
[2020-10-20] MEDS: predniSONE 20 MG TABLET PO SCH (09:35)
[2020-10-20] MEDS: Apixaban 5 MG TABLET PO SCH (09:35)
[2020-10-20] MEDS: Insulin LISPRO 300 UNITS/3 ML VIAL SUBQ SCH ×6 (09:36→17:19)
[2020-10-20] MEDS: Nicotine 21 MG PATCH.TD24 TD SCH (09:36)
[2020-10-20] MEDS: Renal Vitamin 1 CAP CAPSULE PO SCH (09:36)
[2020-10-20] MEDS: Insulin DETEMIR 100 UNIT/ML X5UNITS SUBQ SCH (09:37)
[2020-10-20 10:17] LABS: Magnesium 1.7 mg/dL (1.6-2.6); Phosphorous 4.3 mg/dL (2.7-4.5)
[2020-10-20] MEDS: Metoprolol XL (24 HR) Succ 25 MG TAB.ER.24H PO SCH ×2 (10:21→13:00)
[2020-10-20] MEDS: Budesonide/Formoterol 160/4.5 1 PUFF INH IH SCH (10:53)
[2020-10-20 16:36] VITALS: BP 112/72; PULSE 124; TEMP 97.9
== END 2020-10-20 18:55 | disposition home health service (06) | DRG 673 ==
LOC: EMEROOARM 11:09 → 3ANU 11:09 → SUATTDRO 10-05 13:43 → 2ANU 10-14 10:05
PROVIDERS: ADMIT Pharmacist; ATTEND Internal Medicine
PROC: IRPERMA (2020-10-18 12:00)

== ENCOUNTER 2020-10-22 19:21 | Inpatient (IN) ==
[2020-10-22] MEDS ORDERED: Nitroglycerin 0.4 MG TAB.SUBL SL PRN (19:46)
[2020-10-22] MEDS: Aspirin 81 MG TAB.CHEW PO SCH (19:56)
[2020-10-22 20:05] LABS: Basophils % 0.1 %; Eosinophils % 0.3 %; Hematocrit 28.1 % (37.5-50.1); Hemoglobin 8.3 g/dL (12.9-16.9); Immature Granulocytes % 0.8 % (0-4); Lymphocytes # 0.3 K/mcL (0.6-4.6); Lymphocytes % 2.4 %; Mean Corpuscular HGB Conc 29.5 g/dL (31.6-35.5); Mean Corpuscular Hemoglobin 25.7 pg (28.0-33.3); Mean Platelet Volume 11.6 fL (9.4-12.4); Monocytes # 0.7 K/mcL (0.0-1.3); Monocytes % 4.9 %; Platelet Count 207 K/mcL (140-400); Red Blood Count 3.23 M/mcL (4.19-5.50); Red Cell Distribution Width 23.3 % (11.5-14.5); Segmented Neutrophils % 91.5 %; White Blood Count 13.2 K/mcL (4.3-11.1)
[2020-10-22 20:07] LABS: Neutrophils # 12.1 K/mcL (1.6-8.9)
[2020-10-22 20:12] LABS: VBG HCO3 27 mEq/L (21-27); VBG PCO2 65 mmHg (41-51); VBG PH 7.22 pH Units (7.32-7.42); VBG PO2 51 mmHg (25-50)
[2020-10-22] MEDS ORDERED: 0.9 % Sodium Chloride 250 ML IVC ONE (20:19)
[2020-10-22 20:24] LABS: Anisocytosis 3+ (Not Present)
[2020-10-22] MEDS ORDERED: Isovue-370 500 ML BOTTLE IVP ONE (20:31)
[2020-10-22 20:40] LABS: Calcium 7.9 mg/dL (8.6-10.3); Potassium 4.4 mEq/L (3.5-5.1); Troponin I 0.2 ng/mL (< 0.04)
[2020-10-22] MEDS ORDERED: Insulin Human Regular 10 UNIT in 0.9 % Sodium Chloride 10 ML IV ONE (20:40)
[2020-10-22 21:21] LABS: Influenza A PCR Negative (Negative); Influenza B PCR Negative (Negative); Resp. Syncytial Virus PCR Negative (Negative)
[2020-10-22 21:23] LABS: SARS-CoV-2 by PCR (In House) Negative (Negative)
[2020-10-22] MEDS ORDERED: *HR* FentaNYL (PF) 100 MCG/2 ML VIAL IVP STA (21:50)
[2020-10-22] MEDS ORDERED: Naloxone 0.4 MG/ML INJ IVP PRN (23:05)
[2020-10-23] MEDS ORDERED: Dextrose Gel 15 GM/37.5 ML TUBE PO PRN (01:09)
[2020-10-23] MEDS ORDERED: D5% in Water 1,000 ML IVC PRN (01:09)
[2020-10-23] MEDS ORDERED: *HR* Dextrose 50 % in Water (Vial) 50 ML VIAL IVP PRN (01:09)
[2020-10-23] MEDS: Insulin LISPRO 300 UNITS/3 ML VIAL SUBQ SCH ×6 (02:06→21:15)
[2020-10-23] MEDS: Ondansetron 4 MG/2 ML VIAL IVP PRN (02:07)
[2020-10-23] MEDS ORDERED: Furosemide 40 MG/4 ML VIAL IVP ONE (02:15)
[2020-10-23 02:45] LABS: Hematocrit 27.5 % (37.5-50.1); Hemoglobin 8.4 g/dL (12.9-16.9); Mean Corpuscular HGB Conc 30.5 g/dL (31.6-35.5); Mean Corpuscular Hemoglobin 25.6 pg (28.0-33.3); Mean Corpuscular Volume 83.8 fL (83.0-100.0); Platelet Count 183 K/mcL (140-400); Red Blood Count 3.28 M/mcL (4.19-5.50); Red Cell Distribution Width 22.7 % (11.5-14.5); White Blood Count 13.3 K/mcL (4.3-11.1)
[2020-10-23 03:04] LABS: Calcium 7.9 mg/dL (8.6-10.3)
[2020-10-23] MEDS: Insulin DETEMIR 100 UNIT/ML X5UNITS SUBQ SCH ×2 (03:15→21:15)
[2020-10-23] MEDS ORDERED: Perflutren Lipid Microsphere 1.3 ML in 0.9 % Sodium Chloride 8.7 ML IVP PRN (04:58)
[2020-10-23] MEDS: Aspirin 81 MG TAB.CHEW PO SCH (10:47)
[2020-10-23] MEDS: Dextrose Gel 15 GM/37.5 ML TUBE PO PRN ×2 (10:49→11:05)
[2020-10-23] MEDS: Metoprolol XL (24 HR) Succ 25 MG TAB.ER.24H PO SCH (11:13)
[2020-10-23] MEDS: predniSONE 20 MG TABLET PO SCH (11:17)
[2020-10-23] MEDS ORDERED: 0.9 % Sodium Chloride 250 ML IVC PRN (11:43)
[2020-10-23] MEDS ORDERED: *HR* Heparin 10,000 UNIT/10 ML VIAL IV PRN (11:43)
[2020-10-23] MEDS ORDERED: 0.9 % Sodium Chloride 1,000 ML PRIME SCH (11:45)
[2020-10-23 12:31] LABS: Acinetobacter baumannii by PCR Not Detected (Not Detect); Candida albicans by PCR Not Detected (Not Detect); Candida glabrata by PCR Not Detected (Not Detect); Candida krusei by PCR Not Detected (Not Detect); Candida parapsilosis by PCR Not Detected (Not Detect); Candida tropicalis by PCR Not Detected (Not Detect); Enterobacter cloacae Cmplx PCR Not Detected (Not Detect); Enterobacteriaceae by PCR Not Detected (Not Detect); Enterococcus by PCR DETECTED (Not Detect); Escherichia coli by PCR Not Detected (Not Detect); Klebsiella oxytoca by PCR Not Detected (Not Detect); Klebsiella pneumoniae by PCR Not Detected (Not Detect); Proteus by PCR Not Detected (Not Detect); Pseudomonas aeruginosa by PCR Not Detected (Not Detect); Serratia marcescens by PCR Not Detected (Not Detect); Staphylococcus aureus by PCR Not Detected (Not Detect); Staphylococcus by PCR Not Detected (Not Detect); Streptococcus agalactiae(B)PCR Not Detected (Not Detect); Streptococcus by PCR Not Detected (Not Detect); Streptococcus pneumoniae PCR Not Detected (Not Detect); Streptococcus pyogenes (A) PCR Not Detected (Not Detect); vanA/B Vancomycin-Resist Genes Not Detected (Not Detect)
[2020-10-23] MEDS ORDERED: Vancomycin 1,750 MG/517.5 ML IV.SOLN IVPB ONE (13:00)
[2020-10-23] MEDS: Piperacillin/Tazobactam 3.375 GM in 0.9 % Sodium Chloride Mini Bag 100 ML IVPB SCH (16:14)
[2020-10-23] MEDS: Apixaban 5 MG TABLET PO SCH (21:16)
[2020-10-23] MEDS: Benzonatate 100 MG CAPSULE PO PRN (22:15)
[2020-10-24] MEDS: Insulin LISPRO 300 UNITS/3 ML VIAL SUBQ SCH ×5 (01:18→22:12)
[2020-10-24 02:16] LABS: Calcium 8.1 mg/dL (8.6-10.3); Potassium 4.8 mEq/L (3.5-5.1)
[2020-10-24 02:18] LABS: Basophils % 0.1 %; Immature Granulocytes % 0.8 % (0-4); Lymphocytes % 2.1 %
[2020-10-24 02:20] LABS: Hematocrit 26.8 % (37.5-50.1); Hemoglobin 8.1 g/dL (12.9-16.9); Immature Platelets 7.1 % (1.1-6.1); Lymphocytes # 0.3 K/mcL (0.6-4.6); Mean Corpuscular HGB Conc 30.2 g/dL (31.6-35.5); Mean Corpuscular Hemoglobin 25.7 pg (28.0-33.3); Mean Corpuscular Volume 85.1 fL (83.0-100.0); Mean Platelet Volume 11.9 fL (9.4-12.4); Monocytes # 0.2 K/mcL (0.0-1.3); Monocytes % 1.5 %; Platelet Count 183 K/mcL (140-400); Red Blood Count 3.15 M/mcL (4.19-5.50); Segmented Neutrophils % 95.5 %; White Blood Count 14.2 K/mcL (4.3-11.1)
[2020-10-24] MEDS: Ondansetron 4 MG/2 ML VIAL IVP PRN (02:24)
[2020-10-24] MEDS: Piperacillin/Tazobactam 3.375 GM in 0.9 % Sodium Chloride Mini Bag 100 ML IVPB SCH ×2 (04:02→17:14)
[2020-10-24] MEDS: Acetaminophen 325 MG TABLET PO PRN (04:03)
[2020-10-24 04:05] LABS: Neutrophils # 13.6 K/mcL (1.6-8.9)
[2020-10-24 04:17] LABS: Anisocytosis 2+ (Not Present)
[2020-10-24 04:18] LABS: Platelet Estimate Normal (Normal)
[2020-10-24] MEDS ORDERED: GI Cocktail 40 ML EACH PO ONE (04:33)
[2020-10-24] MEDS ORDERED: Pantoprazole 40 MG VIAL IVP SCH (04:45)
[2020-10-24] MEDS ORDERED: *HR* Heparin 10,000 UNIT/10 ML VIAL IV PRN (08:08)
[2020-10-24] MEDS ORDERED: 0.9 % Sodium Chloride 250 ML IVC PRN (08:08)
[2020-10-24] MEDS: Metoprolol XL (24 HR) Succ 25 MG TAB.ER.24H PO SCH (08:22)
[2020-10-24] MEDS: Aspirin 81 MG TAB.CHEW PO SCH (08:29)
[2020-10-24] MEDS: predniSONE 20 MG TABLET PO SCH (08:29)
[2020-10-24] MEDS: Apixaban 5 MG TABLET PO SCH ×2 (08:29→19:56)
[2020-10-24] MEDS ORDERED: Albumin 25% 25gram/100mL 25 GM/100 ML IV.SOLN IVPB ONE (09:17)
[2020-10-24] MEDS ORDERED: Albumin 25% 25gram/100mL 25 GM/100 ML IV.SOLN ONE (09:22)
[2020-10-24] MEDS: Furosemide 40 MG TABLET PO SCH (15:24)
[2020-10-24] MEDS ORDERED: Vancomycin 1,750 MG/517.5 ML IV.SOLN IVPB ONE (16:00)
[2020-10-24] MEDS: Budesonide/Formoterol 160/4.5 1 PUFF INH IH SCH (20:16)
[2020-10-24] MEDS: Insulin DETEMIR 100 UNIT/ML X5UNITS SUBQ SCH (22:13)
[2020-10-25] MEDS: Piperacillin/Tazobactam 3.375 GM in 0.9 % Sodium Chloride Mini Bag 100 ML IVPB SCH (05:17)
[2020-10-25 07:48] LABS: Hemoglobin 7.6 g/dL (12.9-16.9); Immature Granulocytes % 0.6 % (0-4)
[2020-10-25 07:50] LABS: Hematocrit 24.6 % (37.5-50.1); Lymphocytes # 0.5 K/mcL (0.6-4.6); Lymphocytes % 5.6 %; Mean Corpuscular HGB Conc 30.9 g/dL (31.6-35.5); Mean Corpuscular Hemoglobin 26.3 pg (28.0-33.3); Mean Corpuscular Volume 85.1 fL (83.0-100.0); Mean Platelet Volume 11.7 fL (9.4-12.4); Monocytes # 0.5 K/mcL (0.0-1.3); Monocytes % 5.6 %; Neutrophils # 7.4 K/mcL (1.6-8.9); Platelet Count 171 K/mcL (140-400); Red Blood Count 2.89 M/mcL (4.19-5.50); Red Cell Distribution Width 23.4 % (11.5-14.5); Segmented Neutrophils % 88.2 %; White Blood Count 8.4 K/mcL (4.3-11.1)
[2020-10-25 07:54] LABS: Albumin 3.3 g/dL (3.5-5.7); Albumin/Globulin Ratio 1.7 (1.1-2.2); Bilirubin,Direct 0.2 mg/dL (0.0-0.2); Bilirubin,Indirect 0.2 mg/dL (0.0-1.0); Bilirubin,Total 0.4 mg/dL (0.3-1.0); Calcium 8.7 mg/dL (8.6-10.3); Potassium 4.8 mEq/L (3.5-5.1); Total Protein 5.3 g/dL (6.4-8.9)
[2020-10-25] MEDS: Insulin LISPRO 300 UNITS/3 ML VIAL SUBQ SCH ×4 (09:20→22:12)
[2020-10-25 09:33] LABS: Anisocytosis 2+ (Not Present); Platelet Estimate Normal (Normal)
[2020-10-25] MEDS ORDERED: Lidocaine Viscous Oral Soln 15 ML SOLUTION MM PRN (09:35)
[2020-10-25] MEDS ORDERED: *HR* FentaNYL (PF) 100 MCG/2 ML VIAL IVP PRN (09:35)
[2020-10-25] MEDS ORDERED: 0.9 % Sodium Chloride 500 ML IVC ONE (09:36)
[2020-10-25] MEDS ORDERED: *HR* Midazolam HCl 5 MG/5 ML VIAL IVP PRN (09:36)
[2020-10-25] MEDS: Budesonide/Formoterol 160/4.5 1 PUFF INH IH SCH ×2 (11:00→20:33)
[2020-10-25] MEDS: Furosemide 40 MG TABLET PO SCH (11:17)
[2020-10-25] MEDS: Metoprolol XL (24 HR) Succ 25 MG TAB.ER.24H PO SCH (11:17)
[2020-10-25] MEDS: Ampicillin 2,000 MG in 0.9 % Sodium Chloride Mini Bag 100 ML IVPB SCH ×2 (11:18→21:38)
[2020-10-25] MEDS ORDERED: predniSONE 20 MG TABLET PO ONE (13:00)
[2020-10-25] MEDS: predniSONE 20 MG TABLET PO SCH (13:08)
[2020-10-25] MEDS: Aspirin 81 MG TAB.CHEW PO SCH (13:08)
[2020-10-25] MEDS: Apixaban 5 MG TABLET PO SCH ×2 (13:08→22:17)
[2020-10-25] MEDS ORDERED: cefTRIAXone 2,000 MG in 0.9 % Sodium Chloride Mini Bag 100 ML IVPB SCH (18:00)
[2020-10-25] MEDS: Acetaminophen 325 MG TABLET PO PRN (21:41)
[2020-10-25] MEDS: Benzonatate 100 MG CAPSULE PO PRN (21:41)
[2020-10-25] MEDS: Insulin DETEMIR 100 UNIT/ML X5UNITS SUBQ SCH (22:58)
[2020-10-26 01:18] LABS: Basophils % 0.1 %; Hematocrit 26.9 % (37.5-50.1); Hemoglobin 8.3 g/dL (12.9-16.9); Immature Granulocytes % 0.5 % (0-4); Lymphocytes # 0.3 K/mcL (0.6-4.6); Lymphocytes % 2.9 %; Mean Corpuscular HGB Conc 30.9 g/dL (31.6-35.5); Mean Corpuscular Volume 84.3 fL (83.0-100.0); Mean Platelet Volume 11.4 fL (9.4-12.4); Monocytes # 0.2 K/mcL (0.0-1.3); Neutrophils # 8.8 K/mcL (1.6-8.9); Platelet Count 167 K/mcL (140-400); Red Blood Count 3.19 M/mcL (4.19-5.50); Red Cell Distribution Width 23.5 % (11.5-14.5); Segmented Neutrophils % 94.5 %; White Blood Count 9.3 K/mcL (4.3-11.1)
[2020-10-26 01:45] LABS: Anisocytosis 2+ (Not Present); Platelet Estimate Normal (Normal)
[2020-10-26] MEDS ORDERED: predniSONE 20 MG TABLET PO SCH (09:00)
[2020-10-26] MEDS: Insulin LISPRO 300 UNITS/3 ML VIAL SUBQ SCH ×4 (10:07→21:43)
[2020-10-26] MEDS: Furosemide 40 MG TABLET PO SCH (10:07)
[2020-10-26] MEDS: Apixaban 5 MG TABLET PO SCH ×2 (10:07→21:42)
[2020-10-26] MEDS: Metoprolol XL (24 HR) Succ 25 MG TAB.ER.24H PO SCH (10:07)
[2020-10-26] MEDS: Aspirin 81 MG TAB.CHEW PO SCH (10:07)
[2020-10-26] MEDS: Budesonide/Formoterol 160/4.5 1 PUFF INH IH SCH ×2 (10:12→22:06)
[2020-10-26 10:40] LABS: Calcium 8.5 mg/dL (8.6-10.3); Magnesium 1.8 mg/dL (1.6-2.6); Potassium 5.1 mEq/L (3.5-5.1)
[2020-10-26] MEDS: Ampicillin 2,000 MG in 0.9 % Sodium Chloride Mini Bag 100 ML IVPB SCH (11:45)
[2020-10-26] MEDS ORDERED: cefTRIAXone 2,000 MG in 0.9 % Sodium Chloride Mini Bag 100 ML IVPB SCH (13:00)
[2020-10-26] MEDS ORDERED: *HR* Dextrose 50 % in Water (Syg) 50 ML SYRINGE IVP PRN (14:45)
[2020-10-26 19:24] VITALS: BP 109/57; PULSE 53; TEMP 97.7
[2020-10-26] MEDS ORDERED: Insulin DETEMIR 100 UNIT/ML X5UNITS SUBQ SCH (21:00)
[2020-10-26 22:11] VITALS: O2SAT 100
[2020-10-27] MEDS ORDERED: Ampicillin 2,000 MG in 0.9 % Sodium Chloride Mini Bag 100 ML IVPB SCH
[2020-10-27] MEDS ORDERED: Renal Vitamin 1 CAP CAPSULE PO SCH (09:00)
[2020-10-27] MEDS ORDERED: Aspirin Enteric Coated 81 MG Tablet PO SCH (09:00)
== END 2020-10-26 22:38 | disposition short-term general hospital (02) | DRG 314 ==
LOC: 2ANU 19:21 → EMEROOARM 19:21 → SUATTDRO 10-23 00:06 → 2ANU 10-23 00:50 → SUATTDRO 10-24 12:47
PROVIDERS: ADMIT Internal Medicine; ATTEND Family Medicine

== ENCOUNTER 2020-12-08 17:05 | Inpatient (IN) ==
[2020-12-08 22:06] LABS: Calcium 8.6 mg/dL (8.6-10.3); Potassium 4.3 mEq/L (3.5-5.1)
[2020-12-08 22:20] LABS: Basophils % 0.6 %; Eosinophils # 0.1 K/mcL (0.0-0.6); Eosinophils % 0.9 %; Hematocrit 33.6 % (37.5-50.1); Hemoglobin 9.6 g/dL (12.9-16.9); Immature Granulocytes % 0.3 % (0-4); Lymphocytes # 1.1 K/mcL (0.6-4.6); Lymphocytes % 15.8 %; Mean Corpuscular HGB Conc 28.6 g/dL (31.6-35.5); Mean Corpuscular Hemoglobin 27.7 pg (28.0-33.3); Mean Corpuscular Volume 96.8 fL (83.0-100.0); Mean Platelet Volume 10.4 fL (9.4-12.4); Monocytes # 0.7 K/mcL (0.0-1.3); Monocytes % 10.2 %; Neutrophils # 4.9 K/mcL (1.6-8.9); Platelet Count 108 K/mcL (140-400); Red Blood Count 3.47 M/mcL (4.19-5.50); Red Cell Distribution Width 22.9 % (11.5-14.5); Segmented Neutrophils % 72.2 %; White Blood Count 6.8 K/mcL (4.3-11.1)
[2020-12-09] MEDS ORDERED: Naloxone 0.4 MG/ML INJ IVP PRN (05:08)
[2020-12-09] MEDS ORDERED: Acetaminophen 325 MG TABLET PO PRN (06:00)
[2020-12-09] MEDS ORDERED: Dextrose Gel 15 GM/37.5 ML TUBE PO PRN ×2 (06:38)
[2020-12-09] MEDS ORDERED: *HR* Dextrose 50 % in Water (Syg) 50 ML SYRINGE IVP PRN (06:38)
[2020-12-09] MEDS ORDERED: D5% in Water 1,000 ML IVC PRN (06:38)
[2020-12-09] MEDS: Insulin LISPRO 300 UNITS/3 ML VIAL SUBQ SCH ×3 (07:54→17:39)
[2020-12-09] MEDS ORDERED: Albuterol 2.5 MG/3 ML NEBULIZER IH PRN (16:30)
[2020-12-09] MEDS ORDERED: MOM Conc 10 ML UD.LIQ PO PRN (17:40)
[2020-12-09] MEDS: Budesonide/Formoterol 80/4.5 1 PUFF INH IH SCH (20:11)
[2020-12-09] MEDS ORDERED: Insulin DETEMIR 100 UNIT/ML X5UNITS SUBQ SCH (21:00)
[2020-12-09] MEDS ORDERED: Melatonin 3 MG TABLET PO SCH (21:00)
[2020-12-09] MEDS ORDERED: traZODone 50 MG TABLET PO SCH (21:00)
[2020-12-09] MEDS: Bumetanide 1 MG TABLET PO SCH (21:01)
[2020-12-09] MEDS: Divalproex Sodium 125 MG Sprinkle Capsule (DR) PO SCH (21:01)
[2020-12-10 01:40] LABS: Hematocrit 32.5 % (37.5-50.1); Hemoglobin 9.5 g/dL (12.9-16.9); Mean Corpuscular HGB Conc 29.2 g/dL (31.6-35.5); Mean Corpuscular Hemoglobin 28.1 pg (28.0-33.3); Mean Corpuscular Volume 96.2 fL (83.0-100.0); Platelet Count 123 K/mcL (140-400); Red Blood Count 3.38 M/mcL (4.19-5.50); Red Cell Distribution Width 22.4 % (11.5-14.5); White Blood Count 7.8 K/mcL (4.3-11.1)
[2020-12-10 01:51] LABS: Calcium 8.9 mg/dL (8.6-10.3); Potassium 4.4 mEq/L (3.5-5.1)
[2020-12-10] MEDS: Budesonide/Formoterol 80/4.5 1 PUFF INH IH SCH ×2 (07:52→19:55)
[2020-12-10] MEDS: Insulin LISPRO 300 UNITS/3 ML VIAL SUBQ SCH ×3 (08:01→16:42)
[2020-12-10] MEDS: Renal Vitamin 1 CAP CAPSULE PO SCH (08:02)
[2020-12-10] MEDS: Divalproex Sodium 125 MG Sprinkle Capsule (DR) PO SCH ×2 (08:02→20:30)
[2020-12-10] MEDS: Aspirin 81 MG TAB.CHEW PO SCH (08:02)
[2020-12-10] MEDS: Bumetanide 1 MG TABLET PO SCH ×2 (08:02→17:22)
[2020-12-10] MEDS: Metoprolol XL (24 HR) Succ 25 MG TAB.ER.24H PO SCH (08:03)
[2020-12-10 14:22] LABS: ABG Base Excess 3 mEq/L (-2 to 3); ABG HCO3 29 mEq/L (21-27); ABG Oxygen Saturation 98 % (95-98); ABG PCO2 49 mmHg (35-45); ABG PH 7.38 pH Units (7.32-7.45); ABG PO2 103 mmHg (85-104); ABG TCO2 31 mEq/L (20-26)
[2020-12-11] MEDS ORDERED: Albumin 25% 25gram/100mL 25 GM/100 ML IV.SOLN IVPB ONE (00:13)
[2020-12-11 06:31] LABS: Basophils % 0.5 %; Platelet Count 108 K/mcL (140-400); Red Cell Distribution Width 22.5 % (11.5-14.5)
[2020-12-11 06:33] LABS: Eosinophils % 0.7 %; Hematocrit 28.8 % (37.5-50.1); Hemoglobin 8.6 g/dL (12.9-16.9); Immature Granulocytes % 0.4 % (0-4); Immature Platelets 5.2 % (1.1-6.1); Lymphocytes # 0.9 K/mcL (0.6-4.6); Lymphocytes % 16.4 %; Mean Corpuscular HGB Conc 29.9 g/dL (31.6-35.5); Mean Corpuscular Hemoglobin 28.1 pg (28.0-33.3); Mean Corpuscular Volume 94.1 fL (83.0-100.0); Mean Platelet Volume 10.5 fL (9.4-12.4); Monocytes # 0.6 K/mcL (0.0-1.3); Monocytes % 10.7 %; Neutrophils # 4.1 K/mcL (1.6-8.9); Red Blood Count 3.06 M/mcL (4.19-5.50); Segmented Neutrophils % 71.3 %; White Blood Count 5.7 K/mcL (4.3-11.1)
[2020-12-11 06:51] LABS: Calcium 9.2 mg/dL (8.6-10.3); Potassium 5.3 mEq/L (3.5-5.1)
[2020-12-11 07:14] LABS: Troponin I 0.08 ng/mL (< 0.04)
[2020-12-11] MEDS: Budesonide/Formoterol 80/4.5 1 PUFF INH IH SCH ×2 (07:33→20:06)
[2020-12-11] MEDS: Bumetanide 1 MG TABLET PO SCH ×2 (08:00→17:00)
[2020-12-11] MEDS: Insulin LISPRO 300 UNITS/3 ML VIAL SUBQ SCH ×3 (08:05→16:30)
[2020-12-11] MEDS ORDERED: *HR* Heparin 10,000 UNIT/10 ML VIAL IV PRN (08:11)
[2020-12-11] MEDS ORDERED: 0.9 % Sodium Chloride 250 ML IVC PRN (08:11)
[2020-12-11] MEDS ORDERED: 0.9 % Sodium Chloride 1,000 ML PRIME SCH (08:15)
[2020-12-11 08:45] LABS: INR 1.7; Prothrombin Time 18.4 Seconds (9.4-12.1)
[2020-12-11] MEDS: Divalproex Sodium 125 MG Sprinkle Capsule (DR) PO SCH ×2 (09:00→20:55)
[2020-12-11] MEDS: Metoprolol XL (24 HR) Succ 25 MG TAB.ER.24H PO SCH (09:00)
[2020-12-11] MEDS: Renal Vitamin 1 CAP CAPSULE PO SCH (09:00)
[2020-12-11] MEDS: Aspirin 81 MG TAB.CHEW PO SCH (09:00)
[2020-12-11] MEDS ORDERED: Heparin 1,000 UNITS/500 mL 500 ML ONE (09:33)
[2020-12-11 09:34] LABS: Hepatitis B Surface Antibody < 3.10 mIU/mL
[2020-12-11 09:45] LABS: Hepatitis B Surface Antigen Nonreactive (Nonreactive)
[2020-12-11] MEDS ORDERED: *HR* Heparin 5,000 UNIT/ML VIAL ONE (10:35)
[2020-12-11 16:37] LABS: VBG HCO3 33 mEq/L (21-27); VBG PCO2 63 mmHg (41-51); VBG PH 7.33 pH Units (7.32-7.42); VBG PO2 69 mmHg (25-50)
[2020-12-11 16:41] LABS: INR 1.5; Prothrombin Time 16.6 Seconds (9.4-12.1)
[2020-12-11 16:44] LABS: Activated Partial Thrombo Time 34.6 Seconds (26.0-36.0)
[2020-12-11 17:06] LABS: Albumin 3.4 g/dL (3.5-5.7); Albumin/Globulin Ratio 1.2 (1.1-2.2); Bilirubin,Direct 0.3 mg/dL (0.0-0.2); Bilirubin,Indirect 0.6 mg/dL (0.0-1.0); Bilirubin,Total 0.9 mg/dL (0.3-1.0); Globulin 2.9 g/dL (2.4-3.5); Total Protein 6.3 g/dL (6.4-8.9)
[2020-12-11 17:12] LABS: Basophils % 0.4 %; Eosinophils # 0.1 K/mcL (0.0-0.6); Eosinophils % 0.9 %; Hematocrit 30.5 % (37.5-50.1); Immature Granulocytes % 0.3 % (0-4); Lymphocytes # 0.9 K/mcL (0.6-4.6); Lymphocytes % 13.1 %; Mean Corpuscular HGB Conc 29.5 g/dL (31.6-35.5); Mean Corpuscular Volume 94.7 fL (83.0-100.0); Mean Platelet Volume 10.3 fL (9.4-12.4); Monocytes # 0.7 K/mcL (0.0-1.3); Monocytes % 10.7 %; Platelet Count 130 K/mcL (140-400); Red Blood Count 3.22 M/mcL (4.19-5.50); Red Cell Distribution Width 22.6 % (11.5-14.5); Segmented Neutrophils % 74.6 %; White Blood Count 6.7 K/mcL (4.3-11.1)
[2020-12-11 17:40] LABS: Troponin I 0.07 ng/mL (< 0.04)
[2020-12-11 17:43] LABS: Albumin 3.3 g/dL (3.5-5.7); Bilirubin,Total 0.9 mg/dL (0.3-1.0); Calcium 8.3 mg/dL (8.6-10.3); Globulin 3.3 g/dL (2.4-3.5); Potassium 3.9 mEq/L (3.5-5.1); Total Protein 6.6 g/dL (6.4-8.9)
[2020-12-12 05:10] LABS: Hematocrit 28.9 % (37.5-50.1); Hemoglobin 8.7 g/dL (12.9-16.9); Mean Corpuscular HGB Conc 30.1 g/dL (31.6-35.5); Mean Corpuscular Hemoglobin 28.8 pg (28.0-33.3); Mean Corpuscular Volume 95.7 fL (83.0-100.0); Platelet Count 111 K/mcL (140-400); Red Blood Count 3.02 M/mcL (4.19-5.50); Red Cell Distribution Width 23.2 % (11.5-14.5); White Blood Count 5.1 K/mcL (4.3-11.1)
[2020-12-12 05:29] LABS: Calcium 8.6 mg/dL (8.6-10.3); Potassium 4.6 mEq/L (3.5-5.1)
[2020-12-12] MEDS: Budesonide/Formoterol 80/4.5 1 PUFF INH IH SCH ×2 (08:55→20:12)
[2020-12-12] MEDS: Insulin LISPRO 300 UNITS/3 ML VIAL SUBQ SCH ×3 (09:02→16:38)
[2020-12-12] MEDS: Bumetanide 1 MG TABLET PO SCH ×2 (09:03→16:38)
[2020-12-12] MEDS: Aspirin 81 MG TAB.CHEW PO SCH (09:03)
[2020-12-12] MEDS: Divalproex Sodium 125 MG Sprinkle Capsule (DR) PO SCH ×2 (09:03→21:17)
[2020-12-12] MEDS: Metoprolol XL (24 HR) Succ 25 MG TAB.ER.24H PO SCH (09:03)
[2020-12-12] MEDS: Renal Vitamin 1 CAP CAPSULE PO SCH (09:04)
[2020-12-12 12:48] LABS: Influenza A PCR Negative (Negative); Influenza B PCR Negative (Negative); Resp. Syncytial Virus PCR Negative (Negative)
[2020-12-12 12:55] LABS: SARS-CoV-2 by PCR (In House) Negative (Negative)
[2020-12-13 06:40] VITALS: PULSE 100; TEMP 98
[2020-12-13] MEDS: Budesonide/Formoterol 80/4.5 1 PUFF INH IH SCH (08:00)
[2020-12-13 08:03] VITALS: O2SAT 96
[2020-12-13] MEDS: Bumetanide 1 MG TABLET PO SCH (08:23)
[2020-12-13] MEDS: Metoprolol XL (24 HR) Succ 25 MG TAB.ER.24H PO SCH (08:23)
[2020-12-13] MEDS: Divalproex Sodium 125 MG Sprinkle Capsule (DR) PO SCH (08:23)
[2020-12-13] MEDS: Renal Vitamin 1 CAP CAPSULE PO SCH (08:23)
[2020-12-13] MEDS: Aspirin 81 MG TAB.CHEW PO SCH (08:23)
[2020-12-13] MEDS: Insulin LISPRO 300 UNITS/3 ML VIAL SUBQ SCH ×2 (08:24→14:55)
[2020-12-13] MEDS ORDERED: 0.9 % Sodium Chloride 250 ML IVC PRN (08:55)
[2020-12-13] MEDS ORDERED: *HR* Heparin 10,000 UNIT/10 ML VIAL IV PRN (08:55)
[2020-12-13 13:02] VITALS: BP 97/64
== END 2020-12-13 15:19 | DRG 698 ==
LOC: 3BNU 17:05 → EMEROOARM 17:05 → SUATTDRO 12-09 03:50 → 3BNU 12-09 04:03 → SUATTDRO 12-10 12:25 → 3BNU 12-10 19:21
PROVIDERS: ADMIT Internal Medicine; ATTEND Internal Medicine

== ENCOUNTER 2021-01-05 16:09 | Inpatient (IN) ==
[2021-01-05] MEDS ORDERED: Ondansetron 4 MG/2 ML VIAL IVP PRN (17:56)
[2021-01-05] MEDS ORDERED: Naloxone 0.4 MG/ML INJ IVP PRN (17:56)
[2021-01-05] MEDS ORDERED: Acetaminophen 325 MG TABLET PO PRN (17:56)
[2021-01-05] MEDS ORDERED: *HR* Heparin 5,000 UNIT/ML VIAL IVP PRN ×4 (18:02→18:15)
[2021-01-05] MEDS ORDERED: *HR* Heparin 5,000 UNIT/ML VIAL IVP ONE ×2 (18:02→18:15)
[2021-01-05] MEDS ORDERED: D5% in Water 1,000 ML IVC PRN (18:03)
[2021-01-05] MEDS ORDERED: *HR* Dextrose 50 % in Water (Syg) 50 ML SYRINGE IVP PRN (18:03)
[2021-01-05] MEDS ORDERED: Dextrose Gel 15 GM/37.5 ML TUBE PO PRN ×2 (18:03)
[2021-01-05] MEDS ORDERED: Heparin 25,000UNIT/250ML 1/2NS 25,000 UNIT/250 ML IV.SOLN IVC SCH ×2 (18:15)
[2021-01-05 18:59] LABS: Hematocrit 34.3 % (37.5-50.1); Red Cell Distribution Width 21.6 % (11.5-14.5)
[2021-01-05 19:01] LABS: Hemoglobin 9.8 g/dL (12.9-16.9); Immature Platelets 9.6 % (1.1-6.1); Mean Corpuscular HGB Conc 28.6 g/dL (31.6-35.5); Mean Corpuscular Volume 101.5 fL (83.0-100.0); Mean Platelet Volume 10.7 fL (9.4-12.4); Red Blood Count 3.38 M/mcL (4.19-5.50); White Blood Count 5.5 K/mcL (4.3-11.1)
[2021-01-05 19:07] LABS: INR 1.8; Prothrombin Time 19.8 Seconds (9.4-12.1)
[2021-01-05 19:12] LABS: Heparin anti-factor XA UFH 1.06 IU/mL (0.30-0.70)
[2021-01-05 19:26] LABS: Albumin 3.3 g/dL (3.5-5.7); Albumin/Globulin Ratio 1.1 (1.1-2.2); Bilirubin,Total 0.8 mg/dL (0.3-1.0); Calcium 8.7 mg/dL (8.6-10.3); Globulin 3.1 g/dL (2.4-3.5); Magnesium 2.1 mg/dL (1.6-2.6); Phosphorous 5.3 mg/dL (2.7-4.5); Potassium 4.6 mEq/L (3.5-5.1); Total Protein 6.4 g/dL (6.4-8.9)
[2021-01-05] MEDS ORDERED: Albuterol 2.5 MG/3 ML NEBULIZER IH PRN (19:56)
[2021-01-05 20:00] LABS: Troponin I 0.05 ng/mL (< 0.04)
[2021-01-05] MEDS ORDERED: Perflutren Lipid Microsphere 1.3 ML in 0.9 % Sodium Chloride 8.7 ML IVP PRN (20:20)
[2021-01-05] MEDS ORDERED: Melatonin 3 MG TABLET PO SCH (21:00)
[2021-01-05] MEDS ORDERED: traZODone 50 MG TABLET PO SCH (21:00)
[2021-01-05] MEDS ORDERED: MOM Conc 10 ML UD.LIQ PO PRN (21:05)
[2021-01-05] MEDS: Divalproex Sodium 125 MG Sprinkle Capsule (DR) PO SCH (22:57)
[2021-01-06] MEDS: Budesonide/Formoterol 80/4.5 1 PUFF INH IH SCH ×4 (00:04→19:56)
[2021-01-06] MEDS: Insulin LISPRO 300 UNITS/3 ML VIAL SUBQ SCH ×4 (01:04→17:22)
[2021-01-06 03:26] LABS: INR 1.8; Prothrombin Time 19.8 Seconds (9.4-12.1)
[2021-01-06 03:27] LABS: Hematocrit 33.1 % (37.5-50.1); Hemoglobin 9.9 g/dL (12.9-16.9); Immature Platelets 9.6 % (1.1-6.1); Mean Corpuscular HGB Conc 29.9 g/dL (31.6-35.5); Mean Corpuscular Hemoglobin 30.1 pg (28.0-33.3); Mean Corpuscular Volume 100.6 fL (83.0-100.0); Red Blood Count 3.29 M/mcL (4.19-5.50); Red Cell Distribution Width 21.4 % (11.5-14.5); White Blood Count 4.6 K/mcL (4.3-11.1)
[2021-01-06 03:42] LABS: Calcium 8.9 mg/dL (8.6-10.3); Potassium 4.9 mEq/L (3.5-5.1)
[2021-01-06] MEDS ORDERED: Isovue-370 500 ML BOTTLE IVP ONE (08:26)
[2021-01-06] MEDS ORDERED: 0.9 % Sodium Chloride 1,000 ML PRIME SCH ×2 (08:30→20:21)
[2021-01-06] MEDS ORDERED: *HR* Heparin 10,000 UNIT/10 ML VIAL IV PRN (08:30)
[2021-01-06] MEDS ORDERED: 0.9 % Sodium Chloride 250 ML IVC PRN ×2 (08:30→20:21)
[2021-01-06] MEDS: Divalproex Sodium 125 MG Sprinkle Capsule (DR) PO SCH ×2 (09:00→21:51)
[2021-01-06] MEDS ORDERED: Aspirin 81 MG TAB.CHEW PO SCH (09:00)
[2021-01-06] MEDS ORDERED: Renal Vitamin 1 CAP CAPSULE PO SCH (09:00)
[2021-01-06] MEDS ORDERED: *HR* HYDROmorphone (PF) 1 MG/ML SYRINGE IVP ONE ×2 (11:01→16:16)
[2021-01-06] MEDS ORDERED: *HR* OxyCODONE Immed Rel 5 MG TABLET PO PRN ×2 (11:01→20:21)
[2021-01-06 11:07] LABS: Hepatitis B Surface Antibody < 3.10 mIU/mL
[2021-01-06 11:17] LABS: Hepatitis B Surface Antigen Nonreactive (Nonreactive)
[2021-01-06] MEDS ORDERED: *HR* HYDROmorphone (PF) 1 MG/ML SYRINGE IVP STA ×2 (11:30→20:21)
[2021-01-06] MEDS: Acetaminophen 325 MG TABLET PO SCH ×2 (12:03→17:48)
[2021-01-06] MEDS ORDERED: *HR* Heparin 5,000 UNIT/ML VIAL IVP PRN ×4 (12:10→20:21)
[2021-01-06] MEDS ORDERED: Heparin 25,000UNIT/250ML 1/2NS 25,000 UNIT/250 ML IV.SOLN IVC SCH (12:15)
[2021-01-06] MEDS ORDERED: Albumin 25% 25gram/100mL 25 GM/100 ML IV.SOLN IVPB PRN ×2 (12:19→20:21)
[2021-01-06] MEDS ORDERED: Albumin 25% 25gram/100mL 25 GM/100 ML IV.SOLN ONE (12:21)
[2021-01-06] MEDS ORDERED: predniSONE 20 MG TABLET PO ONE (12:32)
[2021-01-06] MEDS ORDERED: Haloperidol Lactate 5 MG/ML VIAL IVP PRN ×2 (16:17→20:21)
[2021-01-06] MEDS ORDERED: Dexmedetomidine HCl 400 MCG/100 ML MLS IVC SCH (18:30)
[2021-01-06 18:53] LABS: Heparin anti-factor XA UFH 0.92 IU/mL (0.30-0.70)
[2021-01-06 19:23] LABS: Activated Partial Thrombo Time 83.9 Seconds (26.0-36.0)
[2021-01-06] MEDS ORDERED: Dextrose Gel 15 GM/37.5 ML TUBE PO PRN ×2 (20:21)
[2021-01-06] MEDS ORDERED: Acetaminophen 325 MG TABLET PO PRN (20:21)
[2021-01-06] MEDS ORDERED: Naloxone 0.4 MG/ML INJ IVP PRN (20:21)
[2021-01-06] MEDS ORDERED: MOM Conc 10 ML UD.LIQ PO PRN (20:21)
[2021-01-06] MEDS ORDERED: Perflutren Lipid Microsphere 1.3 ML in 0.9 % Sodium Chloride 8.7 ML IVP PRN (20:21)
[2021-01-06] MEDS ORDERED: Albuterol 2.5 MG/3 ML NEBULIZER IH PRN (20:21)
[2021-01-06] MEDS ORDERED: Ondansetron 4 MG/2 ML VIAL IVP PRN (20:21)
[2021-01-06] MEDS ORDERED: D5% in Water 1,000 ML IVC PRN (20:21)
[2021-01-06] MEDS ORDERED: *HR* Dextrose 50 % in Water (Syg) 50 ML SYRINGE IVP PRN (20:21)
[2021-01-06] MEDS: Dexmedetomidine HCl 400 MCG/100 ML MLS IVC SCH (21:40)
[2021-01-06] MEDS: traZODone 50 MG TABLET PO SCH (21:51)
[2021-01-06] MEDS: Melatonin 3 MG TABLET PO SCH (21:51)
[2021-01-06] MEDS: Heparin 25,000UNIT/250ML 1/2NS 25,000 UNIT/250 ML IV.SOLN IVC SCH (22:50)
[2021-01-07] MEDS: Insulin LISPRO 300 UNITS/3 ML VIAL SUBQ SCH ×4 (01:26→17:44)
[2021-01-07] MEDS: Acetaminophen 325 MG TABLET PO SCH ×4 (01:27→16:54)
[2021-01-07] MEDS ORDERED: 0.9 % Sodium Chloride 250 ML IVC ONE (07:36)
[2021-01-07] MEDS ORDERED: Albumin 25% 25gram/100mL 25 GM/100 ML IV.SOLN IVPB STA (07:42)
[2021-01-07] MEDS: Pantoprazole 40 MG VIAL IVP SCH (09:19)
[2021-01-07] MEDS: Renal Vitamin 1 CAP CAPSULE PO SCH (09:20)
[2021-01-07 09:49] LABS: ABG Base Excess 5 mEq/L (-2 to 3); ABG HCO3 32 mEq/L (21-27); ABG Oxygen Saturation 37 % (95-98); ABG PCO2 57 mmHg (35-45); ABG PH 7.36 pH Units (7.32-7.45); ABG PO2 23 mmHg (85-104); ABG TCO2 34 mEq/L (20-26)
[2021-01-07 09:57] LABS: ABG Base Excess 4 mEq/L (-2 to 3); ABG HCO3 31 mEq/L (21-27); ABG Oxygen Saturation 83 % (95-98); ABG PCO2 58 mmHg (35-45); ABG PH 7.34 pH Units (7.32-7.45); ABG PO2 51 mmHg (85-104); ABG TCO2 33 mEq/L (20-26)
[2021-01-07] MEDS: Divalproex Sodium 125 MG Sprinkle Capsule (DR) PO SCH ×2 (10:28→21:04)
[2021-01-07] MEDS: Aspirin 81 MG TAB.CHEW PO SCH (10:28)
[2021-01-07 11:04] LABS: Basophils % 0.1 %; Hemoglobin 10.3 g/dL (12.9-16.9); Immature Granulocytes % 0.3 % (0-4); Mean Corpuscular Volume 101.1 fL (83.0-100.0)
[2021-01-07] MEDS: Budesonide/Formoterol 80/4.5 1 PUFF INH IH SCH ×2 (11:04→19:42)
[2021-01-07 11:05] LABS: Hematocrit 35.6 % (37.5-50.1); Immature Platelets 10.7 % (1.1-6.1); Lymphocytes # 0.4 K/mcL (0.6-4.6); Lymphocytes % 5.2 %; Mean Corpuscular HGB Conc 28.9 g/dL (31.6-35.5); Mean Corpuscular Hemoglobin 29.3 pg (28.0-33.3); Mean Platelet Volume 11.3 fL (9.4-12.4); Monocytes % 7.8 %; Red Blood Count 3.52 M/mcL (4.19-5.50); Red Cell Distribution Width 21.4 % (11.5-14.5); Segmented Neutrophils % 86.6 %
[2021-01-07 11:07] LABS: Monocytes # 0.6 K/mcL (0.0-1.3); Neutrophils # 6.1 K/mcL (1.6-8.9); Platelet Count 80 K/mcL (140-400)
[2021-01-07 11:28] LABS: Alanine Aminotransferase 14 Units/L (7-52); Albumin 3.3 g/dL (3.5-5.7); Albumin/Globulin Ratio 1.1 (1.1-2.2); Alkaline Phosphatase 172 Units/L (34-104); Aspartate Amino Transferase 19 Units/L (13-39); BUN/Creatinine Ratio 11 (6-26); Bilirubin,Direct 0.4 mg/dL (0.0-0.2); Bilirubin,Indirect 0.4 mg/dL (0.0-1.0); Bilirubin,Total 0.8 mg/dL (0.3-1.0); Blood Urea Nitrogen 34 mg/dL (8-23); C-Reactive Protein 86 mg/L (Less than 10); Carbon Dioxide 29 mEq/L (23-29); Chloride 99 mEq/L (98-107); Globulin 3.1 g/dL (2.4-3.5); Glucose 146 mg/dL (70-105); Osmolality,Calculated 296 (280-300); Potassium 5.1 mEq/L (3.5-5.1); Salicylate < 2.5 mg/dL (15.0-30.0); Sodium 138 mEq/L (136-145); Total Protein 6.4 g/dL (6.4-8.9); eGFR For African Americans 24 (> 60); eGFR For Non-African Americans 20 (> 60)
[2021-01-07 11:40] LABS: Thyroid Stimulating Hormone 8.205 mcIU/mL (0.340-5.600)
[2021-01-07 11:47] LABS: Platelet Estimate Slight Decrease (Normal)
[2021-01-07 11:48] LABS: Basophilic Stippling 1+ (Not Present)
[2021-01-07 11:49] LABS: Anisocytosis 1+ (Not Present)
[2021-01-07] MEDS ORDERED: Cefepime HCl 1,000 MG in 0.9 % Sodium Chloride Mini Bag 100 ML IVPB ONE (12:11)
[2021-01-07] MEDS ORDERED: Haloperidol Lactate 5 MG/ML VIAL IVP PRN (12:50)
[2021-01-07] MEDS: Ipratropium/Albuterol Neb 3 ML IH SCH ×3 (13:13→19:42)
[2021-01-07] MEDS: Heparin 25,000UNIT/250ML 1/2NS 25,000 UNIT/250 ML IV.SOLN IVC SCH (14:43)
[2021-01-07] MEDS: Dexmedetomidine HCl 400 MCG/100 ML MLS IVC SCH (16:25)
[2021-01-07] MEDS: Melatonin 3 MG TABLET PO SCH (21:05)
[2021-01-07] MEDS: traZODone 50 MG TABLET PO SCH (21:06)
[2021-01-08] MEDS: Acetaminophen 325 MG TABLET PO SCH ×5 (00:11→23:38)
[2021-01-08] MEDS: Insulin LISPRO 300 UNITS/3 ML VIAL SUBQ SCH ×4 (00:11→18:30)
[2021-01-08] MEDS: Heparin 25,000UNIT/250ML 1/2NS 25,000 UNIT/250 ML IV.SOLN IVC SCH (00:40)
[2021-01-08] MEDS: Ipratropium/Albuterol Neb 3 ML IH SCH ×4 (03:25→21:39)
[2021-01-08] MEDS: Renal Vitamin 1 CAP CAPSULE PO SCH (07:31)
[2021-01-08] MEDS: Divalproex Sodium 125 MG Sprinkle Capsule (DR) PO SCH ×2 (07:31→20:18)
[2021-01-08] MEDS: Aspirin 81 MG TAB.CHEW PO SCH (07:31)
[2021-01-08] MEDS: Pantoprazole 40 MG VIAL IVP SCH (07:31)
[2021-01-08 07:43] LABS: Basophils % 0.1 %; Hemoglobin 10.2 g/dL (12.9-16.9); Immature Granulocytes % 0.3 % (0-4); Mean Corpuscular Hemoglobin 29.1 pg (28.0-33.3); Red Cell Distribution Width 21.3 % (11.5-14.5)
[2021-01-08 07:45] LABS: Eosinophils % 0.4 %; Hematocrit 34.7 % (37.5-50.1); Immature Platelets 8.2 % (1.1-6.1); Lymphocytes # 0.5 K/mcL (0.6-4.6); Lymphocytes % 7.2 %; Mean Corpuscular HGB Conc 29.4 g/dL (31.6-35.5); Mean Corpuscular Volume 99.1 fL (83.0-100.0); Mean Platelet Volume 12.4 fL (9.4-12.4); Monocytes # 0.7 K/mcL (0.0-1.3); Monocytes % 9.7 %; Neutrophils # 5.9 K/mcL (1.6-8.9); Segmented Neutrophils % 82.3 %; White Blood Count 7.2 K/mcL (4.3-11.1)
[2021-01-08 07:51] LABS: INR 1.8
[2021-01-08 07:52] LABS: Platelet Count 95 K/mcL (140-400)
[2021-01-08 07:58] LABS: Calcium 9.3 mg/dL (8.6-10.3); Potassium 4.8 mEq/L (3.5-5.1)
[2021-01-08] MEDS ORDERED: Lidocaine/EPI 1:100k 2% 20 ML VIAL INFILT ONE (09:55)
[2021-01-08] MEDS ORDERED: Perflutren Lipid Microsphere 1.3 ML in 0.9 % Sodium Chloride 8.7 ML IVP PRN (11:09)
[2021-01-08] MEDS: Budesonide/Formoterol 80/4.5 1 PUFF INH IH SCH ×2 (11:43→21:38)
[2021-01-08] MEDS: Apixaban 5 MG TABLET PO SCH ×2 (11:46→20:18)
[2021-01-08] MEDS ORDERED: 0.9 % Sodium Chloride 250 ML IVC PRN (12:05)
[2021-01-08] MEDS ORDERED: *HR* Heparin 10,000 UNIT/10 ML VIAL IV PRN (12:05)
[2021-01-08] MEDS: Dexmedetomidine HCl 400 MCG/100 ML MLS IVC SCH (15:05)
[2021-01-08] MEDS: Melatonin 3 MG TABLET PO SCH (20:17)
[2021-01-08] MEDS: traZODone 50 MG TABLET PO SCH (20:18)
[2021-01-09] MEDS: Insulin LISPRO 300 UNITS/3 ML VIAL SUBQ SCH ×4 (01:25→18:20)
[2021-01-09] MEDS: Ipratropium/Albuterol Neb 3 ML IH SCH ×4 (03:39→19:49)
[2021-01-09] MEDS: Acetaminophen 325 MG TABLET PO SCH ×3 (05:23→18:22)
[2021-01-09 07:18] LABS: Basophils % 0.1 %; Eosinophils # 0.1 K/mcL (0.0-0.6); Eosinophils % 0.7 %; Hematocrit 32.7 % (37.5-50.1); Hemoglobin 9.6 g/dL (12.9-16.9); Immature Granulocytes % 0.3 % (0-4); Immature Platelets 5.8 % (1.1-6.1); Lymphocytes # 0.5 K/mcL (0.6-4.6); Lymphocytes % 6.9 %; Mean Corpuscular HGB Conc 29.4 g/dL (31.6-35.5); Mean Corpuscular Hemoglobin 29.4 pg (28.0-33.3); Mean Platelet Volume 11.3 fL (9.4-12.4); Monocytes # 0.8 K/mcL (0.0-1.3); Monocytes % 11.2 %; Neutrophils # 5.7 K/mcL (1.6-8.9); Red Blood Count 3.27 M/mcL (4.19-5.50); Segmented Neutrophils % 80.8 %
[2021-01-09 07:22] LABS: Platelet Count 92 K/mcL (140-400)
[2021-01-09 07:38] LABS: Calcium 8.4 mg/dL (8.6-10.3); Potassium 4.1 mEq/L (3.5-5.1)
[2021-01-09] MEDS: Budesonide/Formoterol 80/4.5 1 PUFF INH IH SCH ×2 (07:51→19:49)
[2021-01-09 07:53] LABS: Triiodothyronine (T3) Free 2.56 pg/mL (2.50-3.90)
[2021-01-09] MEDS: Apixaban 5 MG TABLET PO SCH ×2 (08:07→19:21)
[2021-01-09] MEDS: Renal Vitamin 1 CAP CAPSULE PO SCH (08:07)
[2021-01-09] MEDS: Aspirin 81 MG TAB.CHEW PO SCH (08:07)
[2021-01-09] MEDS: Divalproex Sodium 125 MG Sprinkle Capsule (DR) PO SCH ×2 (08:08→19:21)
[2021-01-09] MEDS: Pantoprazole 40 MG VIAL IVP SCH (08:09)
[2021-01-09] MEDS ORDERED: Isovue-370 500 ML BOTTLE IVP ONE (13:30)
[2021-01-09 14:48] LABS: INR 2.3; Prothrombin Time 25.2 Seconds (9.4-12.1)
[2021-01-09 14:50] LABS: Activated Partial Thrombo Time 36.8 Seconds (26.0-36.0)
[2021-01-09] MEDS: Melatonin 3 MG TABLET PO SCH (19:20)
[2021-01-09] MEDS: traZODone 50 MG TABLET PO SCH (19:21)
[2021-01-10] MEDS: Acetaminophen 325 MG TABLET PO SCH ×5 (03:17→23:11)
[2021-01-10] MEDS: Insulin LISPRO 300 UNITS/3 ML VIAL SUBQ SCH ×6 (03:17→21:22)
[2021-01-10 03:22] LABS: Basophils % 0.2 %; Eosinophils # 0.1 K/mcL (0.0-0.6); Eosinophils % 1.3 %; Hematocrit 34.5 % (37.5-50.1); Hemoglobin 10.3 g/dL (12.9-16.9); Immature Granulocytes % 0.2 % (0-4); Lymphocytes # 0.5 K/mcL (0.6-4.6); Lymphocytes % 8.5 %; Mean Corpuscular HGB Conc 29.9 g/dL (31.6-35.5); Mean Corpuscular Hemoglobin 29.8 pg (28.0-33.3); Mean Corpuscular Volume 99.7 fL (83.0-100.0); Mean Platelet Volume 11.5 fL (9.4-12.4); Monocytes # 0.6 K/mcL (0.0-1.3); Neutrophils # 4.9 K/mcL (1.6-8.9); Platelet Count 102 K/mcL (140-400); Red Blood Count 3.46 M/mcL (4.19-5.50); Red Cell Distribution Width 20.9 % (11.5-14.5); Segmented Neutrophils % 79.8 %; White Blood Count 6.1 K/mcL (4.3-11.1)
[2021-01-10 03:38] LABS: Calcium 8.8 mg/dL (8.6-10.3); Potassium 4.1 mEq/L (3.5-5.1)
[2021-01-10] MEDS: Ipratropium/Albuterol Neb 3 ML IH SCH ×4 (03:46→20:02)
[2021-01-10] MEDS: Renal Vitamin 1 CAP CAPSULE PO SCH (07:28)
[2021-01-10] MEDS: Divalproex Sodium 125 MG Sprinkle Capsule (DR) PO SCH ×2 (07:28→21:21)
[2021-01-10] MEDS: Aspirin 81 MG TAB.CHEW PO SCH (07:29)
[2021-01-10] MEDS: Apixaban 5 MG TABLET PO SCH ×2 (07:29→21:21)
[2021-01-10] MEDS: Budesonide/Formoterol 80/4.5 1 PUFF INH IH SCH ×2 (08:02→20:01)
[2021-01-10] MEDS ORDERED: 0.9 % Sodium Chloride 250 ML IVC PRN (08:10)
[2021-01-10] MEDS ORDERED: *HR* Heparin 10,000 UNIT/10 ML VIAL IV PRN (08:10)
[2021-01-10] MEDS: Melatonin 3 MG TABLET PO SCH (21:21)
[2021-01-10] MEDS: traZODone 50 MG TABLET PO SCH (21:22)
[2021-01-11] MEDS: Ipratropium/Albuterol Neb 3 ML IH SCH ×4 (04:07→20:19)
[2021-01-11] MEDS: Acetaminophen 325 MG TABLET PO SCH ×4 (05:35→23:36)
[2021-01-11 07:07] LABS: Calcium 8.3 mg/dL (8.6-10.3); Potassium 4.5 mEq/L (3.5-5.1)
[2021-01-11] MEDS: Divalproex Sodium 125 MG Sprinkle Capsule (DR) PO SCH ×2 (08:04→20:17)
[2021-01-11] MEDS: Aspirin 81 MG TAB.CHEW PO SCH (08:04)
[2021-01-11] MEDS: Renal Vitamin 1 CAP CAPSULE PO SCH (08:04)
[2021-01-11] MEDS: Apixaban 5 MG TABLET PO SCH ×2 (08:04→20:19)
[2021-01-11] MEDS: Insulin LISPRO 300 UNITS/3 ML VIAL SUBQ SCH ×4 (08:05→20:27)
[2021-01-11 09:50] LABS: Influenza A PCR Negative (Negative); Influenza B PCR Negative (Negative); Resp. Syncytial Virus PCR Negative (Negative)
[2021-01-11 09:56] LABS: SARS-CoV-2 by PCR (In House) Negative (Negative)
[2021-01-11] MEDS: Budesonide/Formoterol 80/4.5 1 PUFF INH IH SCH ×2 (10:21→20:21)
[2021-01-11] MEDS: traZODone 50 MG TABLET PO SCH (20:17)
[2021-01-11] MEDS: Melatonin 3 MG TABLET PO SCH (20:17)
[2021-01-12] MEDS: Ipratropium/Albuterol Neb 3 ML IH SCH ×4 (03:55→19:58)
[2021-01-12] MEDS: Acetaminophen 325 MG TABLET PO SCH ×3 (06:45→17:30)
[2021-01-12] MEDS: Divalproex Sodium 125 MG Sprinkle Capsule (DR) PO SCH ×2 (07:41→20:16)
[2021-01-12] MEDS: Apixaban 5 MG TABLET PO SCH ×2 (07:42→20:16)
[2021-01-12] MEDS: Renal Vitamin 1 CAP CAPSULE PO SCH (07:42)
[2021-01-12] MEDS: Aspirin 81 MG TAB.CHEW PO SCH (07:42)
[2021-01-12] MEDS: Insulin LISPRO 300 UNITS/3 ML VIAL SUBQ SCH ×4 (07:44→20:19)
[2021-01-12] MEDS: Budesonide/Formoterol 80/4.5 1 PUFF INH IH SCH ×2 (07:48→19:58)
[2021-01-12] MEDS ORDERED: *HR* Heparin 10,000 UNIT/10 ML VIAL IV PRN (08:07)
[2021-01-12] MEDS ORDERED: 0.9 % Sodium Chloride 250 ML IVC PRN (08:07)
[2021-01-12 10:02] LABS: Calcium 8.7 mg/dL (8.6-10.3); Potassium 4.1 mEq/L (3.5-5.1)
[2021-01-13] MEDS: Acetaminophen 325 MG TABLET PO SCH ×2 (01:18→05:27)
[2021-01-13] MEDS: Melatonin 3 MG TABLET PO SCH (01:18)
[2021-01-13] MEDS: traZODone 50 MG TABLET PO SCH (01:18)
[2021-01-13] MEDS: Ipratropium/Albuterol Neb 3 ML IH SCH ×2 (04:43→10:29)
[2021-01-13 06:55] VITALS: BP 93/69; PULSE 93; TEMP 98
[2021-01-13] MEDS: Renal Vitamin 1 CAP CAPSULE PO SCH (07:07)
[2021-01-13] MEDS: Apixaban 5 MG TABLET PO SCH (07:08)
[2021-01-13] MEDS: Aspirin 81 MG TAB.CHEW PO SCH (07:08)
[2021-01-13] MEDS: Divalproex Sodium 125 MG Sprinkle Capsule (DR) PO SCH (07:08)
[2021-01-13] MEDS: Insulin LISPRO 300 UNITS/3 ML VIAL SUBQ SCH (07:08)
[2021-01-13] MEDS: Budesonide/Formoterol 80/4.5 1 PUFF INH IH SCH (10:28)
[2021-01-13 10:30] VITALS: O2SAT 90
== END 2021-01-13 11:06 | DRG 280 ==
LOC: 2ANU → SUATTDRO 17:35 → 2NNU 01-06 20:23 → SUATTDRO 01-08 14:54 → 3NENU 01-08 22:58
PROVIDERS: ADMIT Internal Medicine; ATTEND Internal Medicine

== ENCOUNTER 2021-01-19 18:10 | Inpatient (IN) ==
[2021-01-19] MEDS ORDERED: Ondansetron ODT 4 MG TAB.RAPDIS SL PRN (22:21)
[2021-01-19] MEDS ORDERED: Melatonin 3 MG TABLET PO PRN (22:21)
[2021-01-19] MEDS ORDERED: Naloxone 0.4 MG/ML INJ IVP PRN (22:21)
[2021-01-19] MEDS ORDERED: Acetaminophen 325 MG TABLET PO PRN (22:22)
[2021-01-19] MEDS ORDERED: Albumin 25% 25gram/100mL 25 GM/100 ML IV.SOLN ONE (22:55)
[2021-01-19] MEDS ORDERED: Albumin 25% 25gram/100mL 25 GM/100 ML IV.SOLN IVPB ONE (23:08)
[2021-01-20] MEDS ORDERED: Gadolinium Contrast Agent (WT Based) IV PRN (00:22)
[2021-01-20] MEDS ORDERED: Albumin 25% 25gram/100mL 25 GM/100 ML IV.SOLN IVPB ONE (00:34)
[2021-01-20] MEDS ORDERED: 0.9 % Sodium Chloride 250 ML IVC ONE (00:54)
[2021-01-20 01:02] LABS: ABG Base Excess 4 mEq/L (-2 to 3); ABG HCO3 32 mEq/L (21-27); ABG Oxygen Saturation 94 % (95-98); ABG PCO2 65 mmHg (35-45); ABG PO2 80 mmHg (85-104); ABG TCO2 34 mEq/L (20-26)
[2021-01-20] MEDS ORDERED: Vancomycin 1 EACH in 0.9 % Sodium Chloride 250 ML IVPB PRN (02:00)
[2021-01-20] MEDS ORDERED: 0.9 % Sodium Chloride 1,000 ML ONE (02:36)
[2021-01-20] MEDS ORDERED: Norepinephrine 4 MG/254 ML IV.SOLN IVC SCH ×2 (03:00→10:45)
[2021-01-20 03:05] LABS: VBG Ionized Calcium 1.23 mmol/L (1.15-1.35)
[2021-01-20 03:08] LABS: INR 2.7; Prothrombin Time 29.5 Seconds (9.4-12.1)
[2021-01-20] MEDS ORDERED: Haloperidol Lactate 5 MG/ML VIAL IM ONE (03:08)
[2021-01-20] MEDS ORDERED: Haloperidol Lactate 5 MG/ML VIAL IVP ONE (03:13)
[2021-01-20 03:45] LABS: Albumin 3.5 g/dL (3.5-5.7); Albumin/Globulin Ratio 1.2 (1.1-2.2); Bilirubin,Direct 0.7 mg/dL (0.0-0.2); Bilirubin,Indirect 0.5 mg/dL (0.0-1.0); Bilirubin,Total 1.2 mg/dL (0.3-1.0); Calcium 9.3 mg/dL (8.6-10.3); Magnesium 1.8 mg/dL (1.6-2.6); Phosphorous 4.4 mg/dL (2.7-4.5); Potassium 4.5 mEq/L (3.5-5.1); Total Protein 6.5 g/dL (6.4-8.9)
[2021-01-20 03:59] LABS: Activated Partial Thrombo Time 43.2 Seconds (26.0-36.0)
[2021-01-20] MEDS ORDERED: *HR* LORazepam 2 MG/ML VIAL IVP ONE (04:09)
[2021-01-20 04:25] LABS: Troponin I 0.05 ng/mL (< 0.04)
[2021-01-20 04:30] LABS: Thyroid Stimulating Hormone 17.838 mcIU/mL (0.340-5.600)
[2021-01-20] MEDS ORDERED: flumazeniL 0.5 MG/5 ML VIAL IVP ONE (05:23)
[2021-01-20 05:29] LABS: ABG Base Excess 3 mEq/L (-2 to 3); ABG HCO3 31 mEq/L (21-27); ABG Oxygen Saturation 91 % (95-98); ABG PCO2 63 mmHg (35-45); ABG PO2 70 mmHg (85-104); ABG TCO2 33 mEq/L (20-26)
[2021-01-20 05:48] LABS: Hematocrit 28.6 % (37.5-50.1); Hemoglobin 8.7 g/dL (12.9-16.9); Immature Platelets 10.8 % (1.1-6.1); Lymphocytes # 0.2 K/mcL (0.6-4.6); Mean Corpuscular HGB Conc 30.4 g/dL (31.6-35.5); Mean Corpuscular Hemoglobin 30.1 pg (28.0-33.3); Mean Platelet Volume 11.8 fL (9.4-12.4); Red Blood Count 2.89 M/mcL (4.19-5.50); Red Cell Distribution Width 19.4 % (11.5-14.5); White Blood Count 10.6 K/mcL (4.3-11.1)
[2021-01-20] MEDS ORDERED: *HR* Heparin 5,000 UNIT/ML VIAL IVP PRN ×2 (05:57)
[2021-01-20] MEDS ORDERED: Piperacillin/Tazobactam 3.375 GM in 0.9 % Sodium Chloride Mini Bag 100 ML IVPB SCH ×2 (06:00→08:00)
[2021-01-20] MEDS ORDERED: Perflutren Lipid Microsphere 1.3 ML in 0.9 % Sodium Chloride 8.7 ML IVP PRN (06:01)
[2021-01-20 06:07] LABS: Platelet Count 78 K/mcL (140-400)
[2021-01-20 06:12] LABS: Albumin 3.3 g/dL (3.5-5.7); Albumin/Globulin Ratio 1.1 (1.1-2.2); Bilirubin,Total 1.2 mg/dL (0.3-1.0); Calcium 9.3 mg/dL (8.6-10.3); Globulin 2.9 g/dL (2.4-3.5); Potassium 4.2 mEq/L (3.5-5.1); Total Protein 6.2 g/dL (6.4-8.9)
[2021-01-20] MEDS ORDERED: Heparin 25,000 UNIT/250 ML 25,000 UNIT/250 ML IV.SOLN IVC SCH ×2 (06:15→13:15)
[2021-01-20] MEDS ORDERED: Isovue-370 500 ML BOTTLE IVP ONE ×2 (06:17→09:30)
[2021-01-20 06:38] LABS: Anisocytosis 1+ (Not Present); Monocytes # 0.3 K/mcL (0.0-1.3); Neutrophils # 10.1 K/mcL (1.6-8.9); Platelet Estimate Slight Decrease (Normal)
[2021-01-20 07:31] LABS: INR 2.4; Prothrombin Time 26.6 Seconds (9.4-12.1)
[2021-01-20 07:33] LABS: Activated Partial Thrombo Time 41.2 Seconds (26.0-36.0)
[2021-01-20] MEDS ORDERED: D5% in Water 1,000 ML IVC PRN (07:49)
[2021-01-20] MEDS ORDERED: *HR* Dextrose 50 % in Water (Syg) 50 ML SYRINGE IVP PRN (07:49)
[2021-01-20] MEDS ORDERED: Dextrose Gel 15 GM/37.5 ML TUBE PO PRN ×2 (07:49)
[2021-01-20] MEDS ORDERED: Hydrocortisone Sodium Succ 100 MG/2 ML VIAL IVP ONE (07:50)
[2021-01-20] MEDS ORDERED: Vancomycin 1,500 MG/265 ML IV.SOLN IVPB ONE (09:21)
[2021-01-20] MEDS ORDERED: Levothyroxine Sodium 100 MCG VIAL IVP SCH (11:15)
[2021-01-20] MEDS ORDERED: Liothyronine Sodium 10 MCG/ML IVP ONE (11:15)
[2021-01-20] MEDS ORDERED: Insulin LISPRO 300 UNITS/3 ML VIAL SUBQ SCH (12:00)
[2021-01-20] MEDS ORDERED: Hydrocortisone Sodium Succ 100 MG/2 ML VIAL IVP SCH (12:00)
[2021-01-20 12:53] LABS: ABG Base Excess 4 mEq/L (-2 to 3); ABG HCO3 31 mEq/L (21-27); ABG Oxygen Saturation 98 % (95-98); ABG PCO2 63 mmHg (35-45); ABG PH 7.31 pH Units (7.32-7.45); ABG PO2 110 mmHg (85-104); ABG TCO2 33 mEq/L (20-26); Blood Gas Pressure Support 12 cm H2O
[2021-01-20 13:39] VITALS: TEMP 98.6
[2021-01-20] MEDS ORDERED: *HR* LORazepam 2 MG/ML VIAL IVP PRN ×2 (14:21→17:46)
[2021-01-20] MEDS ORDERED: Glycopyrrolate 0.2 MG/ML VIAL IVP ONE (14:21)
[2021-01-20] MEDS ORDERED: *HR* FentaNYL (PF) 100 MCG/2 ML VIAL IVP PRN ×2 (14:21→17:46)
[2021-01-20 17:36] VITALS: BP 65/43; PULSE 73; O2SAT 74
== END 2021-01-20 20:54 | disposition expired | DRG 871 ==
LOC: 2ANU → ICNU 01-20 01:34 → 2ANU 01-20 18:49
PROVIDERS: ADMIT Pharmacist; ATTEND Pharmacist